=== PATIENT | female | born 2000 | race Caucasian/White ===

== ENCOUNTER 2022-11-27 07:50 | Outpatient (RCR) | payer OTHER, SELFPAY | END 2022-12-15 13:26 | disposition home or self-care (01) | LOC: PT 07:50 | PROVIDERS: PCP Obstetrics & Gynecology | DX: M54.89 Other dorsalgia (principal); G89.29 Other chronic pain | CPT/HCPCS: 97010; 97014; 97035; 97110; 97140; 97161 ==

== ENCOUNTER 2023-08-12 22:11 | Outpatient (REF) | payer OTHER, SELFPAY ==
[2023-08-15 22:07] LABS: Age Gdln ACOG Testing Note (.); IGP, rfx Aptima HPV ASCU Note (.)
== END 2023-08-12 22:12 | disposition home or self-care (01) ==
LOC: LAB 22:11
PROVIDERS: PCP Obstetrics & Gynecology; Visit Provider Obstetrics & Gynecology
DX: Z01.419 Encounter for gynecological examination (general) (routine) without abnormal findings (principal)
CPT/HCPCS: G0145

== ENCOUNTER 2023-09-30 16:00 | Outpatient (RCR) | payer OTHER, SELFPAY ==
[2023-09-30 16:35] LABS: HCG Quantitative 21024 mIU/mL
[2023-10-02 16:02] LABS: HCG Quantitative 20204 mIU/mL
== END 2023-10-18 08:45 | disposition home or self-care (01) ==
LOC: LAB 16:00
PROVIDERS: PCP Obstetrics & Gynecology; Visit Provider Obstetrics & Gynecology
DX: N92.6 Irregular menstruation, unspecified (principal)
CPT/HCPCS: 36415; 84702

== ENCOUNTER 2023-10-04 15:47 | Outpatient (OUT) | payer OTHER, SELFPAY ==
--- NOTE | 2023-10-04 | US_ITS ---
The [address] [address] Patient Name: SHAQUILLE VIEYRA MRN: [id number] date: 2000 Sex: F Assigned Patient Location: Current Patient Location: Accession/Order Number: [id number] Exam Date: 10/04/2023 16:30 Report Date: 10/07/2023 11:12 At the request of: YASMINE VERGARA Procedure: US OB >= 14 weeks Fetus EXAMINATION: US OB growth HISTORY: Missed Menses N92.6 COMPARISON: No relevant comparison available. FINDINGS: Heart Rate: 141.4 bpm Number: 1.0 Position: BREECH Amniotic Fluid Volume: Subjectively normal BIOMETRY: BPD: 3.9 cm cm; 17 weeks 5 days; 52% HC: 15.1 cmcm; 18 weeks 1 days ; 64% AC: 12.5 cm cm; 18 weeks 1 days; 62% FL: 2.7 cm cm; 18 weeks 1 days; 59% EFW: 223.5 grams; 69% FL/AC: 21.3 FL/BPD: 68.8 HC/AC: 1.2 GESTATIONAL AGE: Age by EDC: 17 weeks 5 days KEEGAN by EDC: 03/08/2024 Age by US: 18 weeks 0 days KEEGAN by US: 03/06/2024 US/US OB >= 14 weeks Fetus IMPRESSION: 1. Single live intrauterine with growth detailed above. Electronically authenticated by: KEEGAN HUMPHREY Date: 10/07/2023 11:12
--- NOTE | 2023-10-04 | US_ITS ---
[address] [address] Patient Name: SHAQUILLE VIEYRA MRN: [id number] date: 2000 Sex: F Assigned Patient Location: Current Patient Location: LAB Accession/Order Number: [id number] Exam Date: 10/04/2023 16:30 Report Date: 10/07/2023 11:12 At the request of: YASMINE VERGARA Procedure: US OB growth EXAMINATION: US OB growth HISTORY: Missed Menses N92.6 COMPARISON: No relevant comparison available. FINDINGS: Heart Rate: 141.4 bpm Number: 1.0 Position: BREECH Amniotic Fluid Volume: Subjectively normal BIOMETRY: BPD: 3.9 cm cm; 17 weeks 5 days; 52% HC: 15.1 cmcm; 18 weeks 1 days ; 64% AC: 12.5 cm cm; 18 weeks 1 days; 62% FL: 2.7 cm cm; 18 weeks 1 days; 59% EFW: 223.5 grams; 69% FL/AC: 21.3 FL/BPD: 68.8 HC/AC: 1.2 GESTATIONAL AGE: Age by EDC: 17 weeks 5 days KEEGAN by EDC: 03/08/2024 Age by US: 18 weeks 0 days KEEGAN by US: 03/06/2024 US/US OB growth IMPRESSION: 1. Single live intrauterine with growth detailed above. Electronically authenticated by: KEEGAN HUMPHREY Date: 10/07/2023 11:12
--- OUTSIDE RECORDS SUMMARY | 2023-10-04 16:10 | XMS_ITS | CCD ---
Author Organization [facility] Care Team Providers Care Management Supervisor Name Role Phone LorieEzequiel Unavailable [facility] [place] MIRANDA Primary Care Unavailable JAI ., DR UNDERWOOD Admitting Unavailable JAI ., DR UNDERWOOD Consulting Unavailable JAI ., DR UNDERWOOD Attending Unavailable [facility] DR MIRANDA Primary Care Unavailable JAI ., DR UNDERWOOD Admitting Unavailable JAI ., DR UNDERWOOD Consulting Unavailable JAI ., DR UNDERWOOD Attending Unavailable YASMINE VERGARA Attending Unavailable Allergies Allergy Classification Reported Allergen(s) Allergy Type Date of Onset Reaction(s) Facility (2 sources) Sulfacetamide Drug Allergy [facility] Other (1 source) Sulfonamides (Antibiotic) Drug allergy (disorder) [facility] Repository Medications Current Medications Medication Drug Class(es) Dates Sig (Normalized) Sig (Original) {21 (ethinyl estradiol 0.03 MG / levonorgestrel 0.15 MG Oral Tablet) / 7 (inert ingredients 1 MG Oral Tablet) } Pack [Levora 0.15/30 28 Day] (1 source) Progestin, Estrogen, Progestin-containin g Intrauterine Device take 1 tablet by mouth every twenty-four hours Levora 0.15/30 (28) 0.15-30 MG-MCG 1 tablet Orally Once a day Active hydrOXYzine (1 source) Antihistamine hydrOXYzine HCl Active hyoscyamine sulfate 0.125 mg oral tablet (1 source) Start: 12-06-2021 take 1 tablet by mouth every eight hours Hyoscyamine Sulfate 0.125 MG 1 tablet as needed Orally Three times a day for 90 day(s) Nov, Active Completed/Discontinued Medications Medication Drug Class(es) Dates Sig (Normalized) Sig (Original) metFORMIN (1 source) Biguanide metFORMIN HCl No t-Taking [place]-28 (2 sources) [place]-28 Not-Ta yadira Adrienne-28 Active Problems Active Problems Problem Classification Problem Date Documented Da te Episodic/Chronic Abdominal pain (3 sources) Abdominal pain; Translations: [Unspecified abdominal pain] Onset: 10-11-2021 Resolved: 10-11-2021 Episodic Immunizations and screening for infectious disease (1 source) Encounter for screening for human papillomavirus (HPV); Translations: [ENC SCREENING HUMAN PAPILLOMAVIRUS] Onset: 09-03-2022 Episodic Other disorders of stomach and duodenum (2 sources) Indigestion; Translations: [Functional dyspepsia] Episodic Other endocrine disorders (1 source) Polycystic ovarian syndrome; Translations: [POLYCYSTIC OVARIAN SYNDROME] Onset: 01-25-2022 Chronic Other gastrointestinal disorders (2 sources) Swollen abdomen; Translations: [Abdominal distension (gaseous)] Episodic Other screening for suspected conditions (not mental disorders or infectious disease) (4 sources) Encounter for screening for malignant neoplasm of cervix; Translations: [ENC SCREENING MALIG NEOPLASM CERV] Onset: 08-29-2022 Episodic Past or Other Problems Problem Classification Problem Date Documented Da te Episodic/Chronic Other disorders of stomach and duodenum (2 sources) Functional dyspepsia Onset: 10-11-2021 Resolved: 12-06-2021 Episodic Other gastrointestinal disorders (1 source) Abdominal distension (gaseous) Onset: 10-11-2021 Resolved: 10-11-2021 Episodic Other nutritional; endocrine; and metabolic disorders (4 sources) Abnormal weight gain; Translations: [ABNORMAL WEIGHT GAIN] Onset: 01-12-2022 Episodic Results Test Name Value Interpretation Reference Range Facility PAP ACOG PANEL 2: 21 to 29on 09-06-2022 . . Normal [facility] Comment on above: Performed By: #### 4 [id number] #### [facility] [address] [address] [address] Dat Wesley Age Gdln ACOG Testing - Normal [facility] Comment on above: Performed By: #### 4 [id number] #### [facility] [address] [address] [address] Dat Wesley DIAGNOSIS: Comment [facility] Comment on above: Result Comment: NEGA TIVE FOR INTRAEPITHELIAL LESION OR MALIGNANCY. Performed By: #### 4 [id number] #### [facility] [address] [place] [address] Dr. Dat Wesley Methodology: Comment Normal [facility] Comment on above: Result Comment: This liquid based ThinPrep(R) pap test was screened with the use of an image guided system. Performed By: #### 4 [id number] #### [facility] [address] [place] [address] Dr. Dat Wesley Note: Comment Normal [facility] Comment on above: Result Comment: The Pap smear is a screening test designed to aid in the detection of premalignant and malignant conditions of the uterine cervix. It is not a diagnostic procedure and should not be used as the sole means of detecting cervical cancer. Both false-positive and false-negative reports do occur. . Performed By: #### 4 [id number] #### [facility] [address] [place] [address] Dr. Dat Wesley Performed by: Comment Normal [facility] Comment on above: Result Comment: Singh Sanders Arch Cushion Press Operator (ASCP) Performed By: #### 4 [id number] #### [facility] [address] [place] [address] Dr. Dat Wesley Reflex Criteria: Comment Normal [facility] Comment on above: Result Comment: The HPV DNA reflex criteria were not met with this specimen result therefore, no HPV testing was performed. . Performed By: #### 4 [id number] #### [facility] [address] [place] [address] Dr. Dat Wesley Specimen adequacy: Comment Normal [facility] Comment on above: Result Comment: Sati sfactory for evaluation. Endocervical and/or squamous metaplastic cells (endocervical component) are present. Performed By: #### 4 [id number] #### [facility] [address] [place] [address] Dr. Dat Wesley HCG,Urineon 11-03-2021 Beta HCG ( test) Ql (U) Negative Normal [facility] Comment on above: Result Comment: PERF ORMED BY: [address] [place] [place] [id number] PATHOLOGIST BALANCE STAFF STAKER SULTANA PETE M.D. Performed By: #### U [facility] #### [address] 11-03-2021 L - -------- Specimen: [id number] Received: 11/03/21 Status: AYDIN Johnson Num: [id number] Spec Type: Surgical Subm Dr: Ezequiel Melo MD Tissues: A Small Intestine - Biopsy/Polyp (SMALL BOWEL) Procedures: HE Stain/2, Gross/Micro L4 -------- Patient Age/Sex Location Account Attending Physician -------- Leigh Singh / [id number] Ezequiel Melo MD -------- SPEC NUM: [id number] RECD: 11/03/21 STATUS: AYDIN JOHNSON NUM: [id number] PAPI: 11/03/[address] [facility] [address]: Ezequiel Melo MD ENTERED: 11/03/[address] [facility] [address]: SPEC TYPE: Surgical DEPT: S ORDERED: HE Stain/2, Gross/Micro L4 ORDERED: HE Stain/2, Gross/Micro L4 Pathological Diagnosis Small bowel, biopsy: - Small bowel mucosa with no significant histopathology. - No evidence of celiac disease identified. Clinical Information Dyspepsia Gross Description Received in formalin labeled with the patient's name, number and small bowel rule out celiac are two simmons tissue fragments, 0.3 cm each. Entire specimen is submitted in one cassette labeled A1. Type of Fixative: 10% Neutral Buffered Formalin (MICK/YJ) Microscopic Description Two H E stained slides are reviewed. Microscopic examination is performed. This case is interpreted at [facility], [place], [place] -------- Specimen: [id number] Received: 11/03/21 Status: RAFAELChino Johnson Num: [id number] Spec Type: Surgical Subm Dr: Ezequiel Melo MD Tissues: A Small Intestine - Biopsy/Polyp (SMALL BOWEL) Procedures: HE Stain/2, Gross/Micro L4 -------- Patient: Leigh Singh [id number] (Continued) -------- Specimen: [id number] Received: 11/03/21 (Continued) Signed (signature on file) Gabe Ellis MD 11/06/21 1703 -------- Specimen: Received: 11/03/21 Status: AYDIN Alex Num: [id number] Spec Type: Surgical Subm Dr: Ezequiel Melo MD Tissues: A Small Intestine - Biopsy/Polyp (SMALL BOWEL) Procedures: HE Stain/2, Gross/Micro L4 -------- Patient: JuanshaunaLeigh [id number] (Continued) -------- Specimen: [id number] Received: 11/03/21 (Continued) CPT Codes 68995 -------- -------- Specimen: [id number] Received: 11/03/21 Status: AYDIN Johnson Num: [id number] Spec Type: Surgical Subm Dr: Ezequiel Melo MD Tissues: A Small Intestine - Biopsy/Polyp (SMALL BOWEL) Procedures: HE Stain/2, Gross/Micro L4 -------- Patient: JuanshaunaLeigh [id number] (Continued) -------- Signed (signature on file) Gabe Ellis MD 11/06/21 1703 Normal [facility] COVID[facility] [place] SARS-CoV-2 (COVID-19) RNA OZZIE+probe Ql (Unsp spec) Negative Normal Negative [facility] Comment on above: Order Comment: Healt hcare Worker?: N Result Comment: Testing for SARS-CoV-2 by RT-PCR This test was developed and its performance characteristics determined by [employer] and validated at the [facility]. This test has not been FDA cleared or approved. This test has been authorized by FDA under an Emergency Use Authorization (EUA). This test has been validated in accordance with the FDA's Guidance Document (Policy for Diagnostics Testing in Laboratories Certified to Perform High Complexity Testing under CLIA prior to Emergency Use Authorization for Coronavirus Disease-2019 during the Public Health Emergency) issued on August 20, 2019. This test is only authorized for the duration of time the declaration that circumstances exist justifying the authorization of the emergency use of in vitro diagnostic tests for detection of SARS-CoV-2 virus and/or diagnosis of COVID-19 infection under section 564(b)(1) of the Act, 21 U.S.C. 360bbb-3(b)(1), unless the authorization is terminated or revoked sooner. PERFORMED BY: [place] [address] PATHOLOGIST BALANCE STAFF STAKER SULTANA PETE M.D. Performed By: #### C OVID 19 [facility] #### [address] Coding Summaryon 04-19-2021 Coding Summary HTMLBase 64 XyczxzdfCZr0vJp+PGhlY WQ+TQ8CMDGoK51irPWdzN 6DN5uPSZ5VRHJCPNJTII4 JIF4hhPC4YVvqK6OyjhHs ToxnjUOxHM07TKy4CQE9t NooPHtwjH7huHUfI0t1Ol WdXU39dA14ZEgoHYVrIsA 3LjZpbjsgbWFy F5rjRqYurXFdBiy+PHRhY mxlIHdpZHRoPScxMDAlJy HmpUmfHU3pVu9pYVLfPZB vbGxhcHNlOiBj b3yrJYLlSJpvFG1xnWfoJ 8XcnHW7PVLlm7q7Ht96fM I+ZKKyJFP1iUsqPUbwg15 4PdLfl8dkMPR3 bUIpPBqhNMV5V39qi2C3I WEsIDMzQDU2wNG1rG0qzI tljrmbH5NwvOFgZsV3LYQ 4rCLptM2ciTps ygcdvB8wVne+P47OKH7FO QISTN5IUhx6C1HaQlpfuU I+MT87NWXdZN99cRTqjSS nm7bgsXg0HpNw RFFbWED2kIztAZlst7GmU VFoZ81vkMXtf5B9WPXtfI pehCRgWhAzxWJ9rJ4eXDj ebttbr3ccnfwd Ryffa2rmwk04vE30F28fU GsbARLhGPJ2HYTrHRIcyN hdaj9itN2eIb0+VKsda9t vd9oqyBd5DzIt CVPgumVakPviKID9a0GcJ y18L1CsoOtvq0PtOio4ag 47wLPsz0G5lPG6YMlfLEL keM9nMRdmVtU5 MUIqSnInlC29aDIbOPzhI f8qnYmnqYupFQ0xOBWnoj jsSWWchZ0bKUUcyHWexXr jYH4kDUQzcmjw v400LwGrQLI8OWYxiQTkX 1LygF7zBtXfMBJhCHLtK3 RccNMzFWooU095LFiuIbB 2ETHngrTiA5Qj RNNnhYxbVuZ4d0R6Rf3Ht 9WbvukiLZT4WKmgGZMeYb AoFaIsSxV9G9YiXyn7KTZ cvPmaFU9jL1Lt EHAwpoercwzrcBB7LVEaX GEscW61qJSiCBqhGp1yg9 R1v353VTTkQEKvtG48Hv3 udDogMTBwdCBU vB1stfkdq5qixchwCbMzT KOcAYq5ZPu4MXWxxZweLb KuRWC8RjR1OMQ4yFDswW9 jhBmtbdrrkU6n Oyc+G60rcA3iRCR5KQA0p qtwEIRlwxPbLM78MN42L2 RyPjwvdGFibGU+PGRpdiB pfTgcNP1pYrGp p8epm2DsMGwhE1KqMIUjD XmbAkb6CXUsLMR3qET6kR 5gIYQyTAbsu9O0yXX3U7N tcuJlvd9vu7on HJMhNDlmA28oeYGmj6N9H HGnkYG3BIZqzYzwAhFawH 93Oyc+XEIsqZoay1QxOvk tr9gus6hfnHj6 KjIwHVFzecHooJckWGE6w 4FlHe31Q03xPOcvUMKkLD OjLROiEXAnfLmwwz9myR7 wIi8+PGNvbCB3 uXM9sO1vIDQoPuJ3UQfuS 718PfOnlYOhUbynt2ere4 pwzXq4GdJhZETlatWcrPs hNPS7p8VxRs94 O62gEIauWEWlJTUvDDBdN NYpwKhsqk1voF0jUd4+PC 9rb6qbnn85wC62kLQ+PHR uOVM7dBozEXvl MZNknP4xPFznKqB9TKWjY fXehI24pKPfJZqsGi3okU mmlVofJT6gCVIinetxv93 2HcSxr3mmUBCu rORnQLtuWTT6L49ku5K0W AEvGMYfKRJ8zPT2sE4kdY lnbjogbGVmdDsgdmVydGl sGHaiESamF720 IHRvcDsnPlBhdGllbnQgT zScMSt6B1WtGat7VTMkzU pyKX2pvQZwKKtgAg7bfLm ysXjlYM9kVJFd bttsq299FfBkm7abZVMcw OHnZTliGYG9G27wa9N9DC QsUHMuUZR4qBS5nH5nbCi nbjogbGVmdDsg ovKgnBiyDTecOTyvN624Y HRvcDsnPkJpcnRoIERhdG F8RN23NY63xZYoe9W3wUZ 0C5OqARBeihdl xtmlmMC5HCPoPFLknZ42F i7inGewJk4hHDPuIMH8QL OexGQoC9JccA6xDfSdVGJ tKEFgX3IifLTv OVpfX744IXbtYpM2IDXuj eVaQ7VoKKUaoJknFyW1n9 B8Rj7QD6Y8PP06DV61fVQ yo5M8cSB2H1Br QWInypecdcxtqJE5VBFzP BCgjJ68Iy7srGocTa4mRG ShKNX1DUXfdKBpU2TzkH1 yOiAjMDAwMDAw E2EvsQBhIWowL122GNffZ vU3QSHuqfSgT4KmQKVdvT exQyO3o0U2Pz6KCUs2UC0 0AF57oXSng5I2 oTQ6G1CdNUHmjeictkllu RE4OPAeODHrxD38Sz6lnA tkNg6iFQHvUXL7WRGmcSX qT3JcsR4dWsLf ORQbNYXqI3UuhZLmOHozM 645SOsuAkD9HGRvlrZnI6 IfIDZgwUpeQnA7v2J5Xz6 IIZZwEV54XWU1 yTV7YO46HW81V9JaRezeq GFibGU+PHRhYmxlIHdpZH RoPScxMDAlJyBzdHlsZT0 iKg9qRSIsMXAn jCinmJJuRlMpg3lhABWoQ UbzXN8xoFdfH1WazUF4IE Ltn2s4Ov68E40sF9GbkWI +UCObmQE9kIA4 sJ1cGaGyAnN9AKqlX479T iTbpHKnGioet9aqr8ielF q1FfU0CBHzbfBvuTybDXK 2a8EgSc22J31w IHdpZHRoPSIxNSUiIHZhb Bjvjq2vfG2hMz1+PGNvbC J5pIO0wT9xVqDcKxT3CYh mF721UoNckDEj Cwkdm9lep6xjsNq8OnGzY SFwxjTszHeqDRY3z1XvFc 40K1ZhgAzqi5RiRic1cp5 1fNFlr7X1zRF1 S2MbMGOnsbehuBVjdZqpV Z2pCGRctgknLPZucA6xEB NuI2h2JiFjYbG2DKbhQ1X vsrZ8KNMalUNc XAfzSIP2B35wa5O3GNJtA AYbAXA8tTM0zV4bxIgwjw ogbGVmdDsgdmVydGljYWw fLAqcM795UKLg sNspRBBayK9lMURyyLTja VvtPL0sPLPntdmkWwVWTI REWSwgSEFOTkFIIEdSQUN REO29YG23fONy v2J5kKD7X8GqXASvstcdc wpblKT1QXDwEPVeqK86sD TpCLfeKp0hi9Q5a386XDR oFYBleM89Fj0u iTvtSSJlbEGUtN1doobfy 2cizqrsVmPyWEZgXNr3IS i7VTLsqQfwEuRbIDV6SbM 6QFN8sAUjwG3i yNufylklmT8oKhv+MDMvM DkvMjAwMTwvdGQ+PHRkIH H5lKfhSGlsAKFzkE1zHWK oM1b5NjIlTtP6 WQujR1PnGTBrhhilLu33o Q2kNiAzXuA2RXysG7Jesb C4DTGxmTXnTGqxSPT6D51 pk9Y2OIBbTGXq YSP2mQV9cB5ewGlmugffq GVmdDsgdmVydGljYWwtYW lkF165UGWyyOhrDpSqLSl oPXNiSG27QE68 dIGef9A3eLD7H7UaBYVck peiebzrtJL5PUNoDGQgrS 89dLNqYLpdVt2aw9X3m99 0HTPfPJUnxC19 Gm3mpSpkPBDguXNAtM1vy hdwe2giitmoJzUjUGIzIQ t7FOn6AHCugXdiLkEfCXY 0GfP7TZF5zBIa jY4keIynupzvzI5qNsi+R fJYVZlERI36DB47yRUlz0 V1eON4Z9EpPUFqgpypvac hvVK8QSQnZUTl wA74cJKsHKkwZk9nb4W7b 432EMSaXDZinV72Le5ydS zxTXFtoRDFbD7dzosno1g vcjogIzAwMDAw RVn7DUb2XAQxpHbpKaMsW CS4RqL1RBA9eKViiP2mqI glgucnoZ6rOzm+W6X0S1S kPjwvdHI+PC90 MZVoPS66zHEvoIIws1rpe Qp8ArEiFOXlJXR2lFohCP lsv4YuTWOpC14rtNVji8G 6IGNvbGxhcHNl HfWowNS8wM5nGYtlamnpf 8pvlrkoUmvei5ifsh93vP 94W95mGLsxVZQiHOOaCUX aEDLowMfide8k hC9gRz9+XKOzkHG5wOU3x H7jOvLgEwC6TSmhX319Qk TewEVySjluf5wpn4ujuHx 9IjIwJSIgdmFs sKqhSJK2f4KrZt99S18uU HdpZHRoPSIyMCUiIHZhbG uvvu7oaC9mYv7+BY4yf7a eqb17wV26oLT+ PFYgMXZ3zRqkGUwdZJHfu X5zIEmmWoJ8QFIaAoQdzJ 01tJBmCJzoSu0oqBlhvNo lFQ6hVSKtctfv j440AxAvf3ynYZYbrMRiO TorSZJ5T92qi4C5CQQoAO ZaNHJ7tWR7qF9fwOipbza gbGVmdDsgdmVy iDqvRIhmALdyA318LKBpf LzxFzXevJEoX8mmafKEOM 1lOjwvdGQ+HSKrKXY8oHg cOTiySLXhgY5k EUJeV3i7QdVvOtB7RDttM 4QrpcK4LHEnkEXoFXNtaD NSzJ3keunxp2xczwkzRxS gYJQrHAf3GLa9 HPCoyCnzHbWzWSR2JdV8A FT5bGAvkX5jvRsezbczxX 9wOyc+RklOOjwvdGQ+PHR sMDK8dYmyDFsa TEQxqP1iGGJyS6u4NcAzG pP6REihR5OsclH3HLAvzE AhKDNjkXTMyF2avifip8w vcjogIzAwMDAw WPq4FVb4HRNofIfqDsRjU HG0LbF0QNA7cMRjrY6luW dbmkjjfR3tFkq+TVJOOjw vdGQ+PHRkIHN0 bWkvSQsjXBVhtQ2iFUAmS 4c7ShEbHyO7USngH3Opvy P3UYJeeKHlGBAecVEWmL2 ebcyoh1vrkhah NoWcYUFkDEm9OEt5NGHlb OdfVgMyOJG5UnX8NXA3uU XsmV4hvXejtjvcsY3nHco +GTB0LXE4OX15 XJ80A9MwRchlmWHuxYP+P HRhYmxlIHdpZHRoPScxMD VdNhDbwIzgSW7bIf9pFOX yLWNvbGxhcHNl OiB (more content not included)... [facility] Urgent Care Note- Provideron 04-06-2021 Urgent Care Note- Provider Patient: LEIGH MONTOYA Age: 20 years Sex: FEMALE : 2000 Associated Diagnoses: Sprain of left foot Author: Paul Atkins PA-C History of Present Illness This is a 20 year old with left foot pain since yesterday when she stubbed it on a door jam at her house. It hurts now to walk and flex her foot. The tips of her left third and fourth toes are tingly. No fevers, chills or malaise. No other joint pains or myalgias. No numbness, tingling or weakness. No skin rashes or lesions. There are no other associated symptoms. Walking makes it worse. Nothing else makes the symptoms better or worse. Symptoms are described as sudden onset, moderate in nature and persisting. Health Status Allergies: Allergic Reactions (Selected) Mild Ibuprofen- No reactions were documented. Sulfamethoxazole- No reactions were documented.. Medications: (Selected) Documented Medications Documented Iron 100 Plus oral tablet: 1 tab(s), PO, Daily, 0 Refill(s) Jolessa 0.15 mg-30 mcg oral tablet: TAKE 1 TABLET BY MOUTH ONCE DAILY metFORMIN 500 mg oral tablet: 500 mg = 1 tab(s), PO, BID, 0 Refill(s). Past Medical/ Family/ Social History Medical history: No active or resolved past medical history items have been selected or recorded.. Surgical history: No active procedure history items have been selected or recorded.. Family history: No family history items have been selected or recorded.. Social history: Social & Psychosocial Habits Alcohol 06/18/2020 Alcohol Use: Never Substance Abuse 06/18/2020 Substance use: Never Tobacco 06/18/2020 Smoking tobacco use: Never (less than 100 in l Electronic Cigarette/Vaping 06/18/2020 Electronic Cigarette Use: Never . Problem list: Active Problems (2) History of ovarian cyst Polycystic ovarian syndrome . Physical Examination GENERAL: Awake, alert and oriented to person, place and situation. Well nourished, well developed, non toxic, NAD. EXTREMITIES: TTP distal third and fourth metatarsals with TTP of the base of the left fourth toe, no cyanosis, clubbing or obvious edema. Good muscle tone, fair ROM. Brisk cap refill distally, pedal pulses 2+ bilaterally. SKIN: Normal inspection, no visualized ecchymosis, abrasion or rash. NEUROLOGIC: Light touch sensation in tact, strength 5/5 in bilateral lower extremities. Normal mentation. No focal neurological deficits appreciated. Medical Decision Making Orders Launch Orders Radiology: XR Foot Complete Left (Order): 04/05/2021 16:18 EST Stat, pain, Allow Modification Per Radiologist, Transport Mode: Cart, Launch Orders Patient Care: Brace/Splint ED (Order): 04/05/2021 17:41 EST, Cast Shoe Brace/Splint ED (Order): 04/05/2021 17:41 EST, Khoa wrap . X-ray interpreted by myself shows no acute bony abnormality, or soft tissue swelling. Rest, ice, compress, and elevate. Khoa and cast shoe is applied by the nurse and checked by myself, and extremity is neurovascularly in tact at the time of discharge. Tylenol/Motrin for pain. Return with new, or worsening symptoms, or symptoms failing to improve as expected and the patient voiced their understanding. Questions answered. Follow-up with their family doctor as directed, return here sooner as needed. Impression and Plan Diagnosis Sprain of left foot ([id number] S93.602A, Discharge, Medical) Plan Condition: Stable. Disposition: Discharged: Time 04/05/2021 17:42:00, to home. Patient was given the following educational materials: Foot Sprain, Foot Sprain, Foot Sprain. Follow up with: Flex Wang Within 3 to 5 days, Flex Wang Within 3 to 5 days; JEFF JESUS , only if needed. Counseled: Patient, Regarding diagnosis, Regarding diagnostic results, Regarding treatment plan, Patient indicated understanding of instructions. Addendum Pt called and notified of questionable toe fracture on final x-ray read. She is in a post op shoe, she can arrange follow-up as needed. Normal [facility] ED Clinical Summaryon 2020 ED Clinical Summary [facility] ? Urgent Care [address] [place], [place] [id number] Clinical Summary PERSON INFORMATION Name: LEIGH MONTOYA Age: 20 Years Sex: FEMALE : 2000 MRN: Acct#: Visit Reason: UC - Ankle/Foot/Toe Pain or Swelling; LEFT FOOT PAIN Arrival: 04/05/2021 16:12:07 Discharge: 04/05/2021 17:50:00 LOS: 000 01:38 Check In: 04/05/2021 16:12:07 Checkout: 04/05/2021 17:50:00 Address: [facility] [facility] [id number] PCP: Flex Wang DO PROVIDER INFORMATION Provider Role Assigned Unassigned Monica Dunn SPECIAL NEEDS CHILD CAREGIVER Nurse 04/05/2021 16:14:32 Paul Atkins PA-C ED PA 04/05/2021 16:15:50 VITALS INFORMATION Vital Sign Triage Latest Temperature Tympanic Temperature Temporal Artery Pulse Rate O2 Sat 99 % 99 % Respiratory Rate Blood Pressure /68 mmHg /68 mmHg MEDICAL INFORMATION Medications Given: Allergy Information: sulfamethoxazole PHYSICIAN DOCUMENTATION DISCHARGE INFORMATION: Discharge Disposition: Home Discharge Location: Home PATIENT EDUCATION INFORMATION Instructions: Foot Sprain Follow-Up: With: Address: When: JEFF [employer] [address] [place] [address] Business (1) , only if needed With: Address: When: Flex Wang [address] [place] [address], [facility] [place] [address] Business (1) Within 3 to 5 days DIAGNOSIS: Sprain of left foot Patient Understands: Yes - Patient/family/caregi nela verbalizes understanding of instructions given Comment: [facility] ED Patient Summaryon 021 ED Patient Summary [facility] ? Urgent Care [address] [place] [id number] PATIENT DISCHARGE INSTRUCTIONS Patient Information Name: LEIGH MONTOYA Age: 20 Years Date of : 2000 Reason For Visit: UC - Ankle/Foot/Toe Pain or Swelling; LEFT FOOT PAIN Arrival Time: 04/05/2021 16:12:07 Primary Care Physician: Flex Wang DO Attending Physician: Nirav Nunez Comment: Patient Education With: Address: When: JEFF [email or web address] [address] [place] [address] Business (1) , only if needed With: Address: When: Flex Wang [address] [facility], [place] [address] Business (1) Within 3 to 5 days Foot Sprain A foot sprain is an injury to one of the strong bands of tissue (ligaments) that connect and support the bones in your feet. The ligament can be stretched too much and tear. A tear can be either partial or complete. The severity of the sprain depends on how much of the ligament was damaged or torn. What are the causes? This condition is usually caused by suddenly twisting or pivoting your foot. What increases the risk? This injury is more likely to occur in people who: ? Play a sport, such as basketball or football. ? Exercise or play a sport without warming up. ? Start a new workout or sport. ? Suddenly increase how long or hard they exercise or play a sport. ? Have previously injured their foot or ankle. What are the signs or symptoms? Symptoms of this condition start soon after an injury and include: ? Pain, especially in the arch of the foot. ? Bruising. ? Swelling. ? Inability to walk or use the foot to support body weight. How is this diagnosed? This condition is diagnosed with a medical history and physical exam. You may also have imaging tests, such as: ? X-rays to make sure there are no broken bones (fractures). ? An MRI to see if the ligament is torn. How is this treated? Treatment for this condition depends on the severity of the sprain. ? Mild sprains can be treated with: ? Rest, ice, compression, and elevation (RICE). ? Keeping your foot in a fixed position (immobilization) for a period of time. This is done if your ligament is overstretched or partially torn. Your health care provider will apply a bandage, splint, or walking boot to keep your foot from moving until it heals. ? Using crutches or a scooter for a few weeks to avoid putting weight on your foot while it is healing. ? Major sprains can be treated with: ? Surgery. This is done if your ligament is fully torn and a procedure is needed to reconnect it to the bone. ? A cast or splint. This will be needed after surgery. A cast or splint will need to stay on your foot while it heals. ? In both types of sprains, you may need to exercise or have physical therapy to strengthen your foot. Follow these instructions at home: If you have a bandage, splint, or boot: ? Wear the bandage, splint, or boot as told by your health care provider. Remove only as told by your health care provider. ? Loosen the bandage, splint, or boot if your toes tingle, become numb, or turn cold and blue. ? Keep the bandage, splint, or boot clean and dry. If you have a cast: ? Do not stick anything inside the cast to scratch your skin. Doing that increases your risk for infection. ? Check the skin around the cast every day. Tell your health care provider about any concerns. ? You may put lotion on dry skin around the edges of the cast. Do not put lotion on the skin underneath the cast. ? Keep the cast clean and dry. Bathing ? Do not take baths, swim, or use a hot tub until your health care provider approves. Ask your health care provider if you may take showers. You may only be allowed to take sponge baths. ? If the bandage, splint, boot, or cast is not waterproof: ? Do not let it get wet. ? Cover it with a watertight covering when you take a shower. Managing pain, stiffness, and swelling ? If directed, put ice on the injured area: ? If you have a removable splint, boot, or immobilizer, remove it as told by your health care provider. ? Put ice in a plastic bag. ? Place a towel between your skin and the bag. ? Leave the ice on for 20 minutes, 2?3 times per day. ? Move your toes often to avoid stiffness and to lessen swelling. ? Raise (elevate) the injured area above the level of your heart while you are sitting or lying down. Driving ? Do not drive or operate heavy machinery while taking pain medicine. ? Ask your health care provider when it is safe to drive if you have a bandage, splint, or walking boot on your foot. Activity ? Do not use the injured foot to support your body weight until your health care provider says that you can. Use crutches or other supportive devices as directed by your health care provider. ? As (more content not included)... Normal [facility] Care [place] 021 Urgent Care Record [facility] ? Urgent Care [address], [place] [id number] PATIENT DISCHARGE INSTRUCTIONS Patient Information Name: LEIGH MONTOYA Age: 20 Years Date of : 2000 Reason For Visit: UC - Ankle/Foot/Toe Pain or Swelling; LEFT FOOT PAIN Arrival Time: 04/05/2021 16:12:07 Primary Care Physician: Flex Wang DO Attending Physician: Nirav Nunez Comment: Visit Diagnosis: Diagnoses This Visit Sprain of left foot (S93.602A) UC - Ankle/Foot/Toe Pain or Swelling ([id number]) If you received any narcotics, sedation, or any other medication that causes drowsiness for the next 24 hours, unless otherwise directed: ? Do not drive a car. ? Do not operate machinery such as power tools, lawn mowers, drills, sewing machines, or stoves ? Avoid alcoholic beverages and drugs for allergies, nerves, or sleep ? Do not make important personal or business decisions or sign any legal documents With: Address: When: JEFF JESUS [address] [address] Business (1) , only if needed With: Address: When: Flex Wang [address] [facility], [place] [address] Business (1) Within 3 to 5 days Medication Information: The exam and treatment you received today in the [facility] were for an urgent problem and are not intended as complete care. It is important for you to follow up with a doctor, nurse practitioner, or physician?s habilitation assistant for ongoing care. If your symptoms become worse or you do not improve as expected and you are unable to reach your usual health care provider, you should return to the Emergency Department, we are available 24 hours a day. For those patients who have received Radiology results, the interpretation of your X-ray as given to you by our Urgent Care physician is only a preliminary report. The Radiologist will review your films and if there is a change in the diagnosis you will be notified by phone. Please make sure you have provided a working phone number so we can reach you if necessary. In the event that you had a lab culture while you were a patient in the Urgent Care, you will be notified by phone if there is a need to change your antibiotic. Please make sure you have provided a working phone number so we can reach you if necessary. [facility] has provided you with a complete list of medications post discharge. Please inform your general operations manager/provider of your visit and for further instruction on these medications. Any specific questions regarding your chronic medications and dosages should be discussed with your primary care physician(s) and/or pharmacist. Medications to Continue That Have Not Changed Other Medications Durable Medical Equipment (DME) (EQ NASAL ALLERGY SPRAY AER) ethinyl estradiol-levonorgest rel (Jolessa 0.15 mg-30 mcg oral tablet) TAKE 1 TABLET BY MOUTH ONCE DAILY. metFORMIN (metFORMIN 500 mg oral tablet) 1 tab(s) Oral 2 times a day. multivitamin with iron (Iron 100 Plus oral tablet) 1 tab(s) Oral every day. Visit Information Allergies: Substance Reaction Symptoms Type Comments sulfamethoxazole Drug hives Vital Signs: Vitals and Measurements this Visit (last charted value for your 04/05/2021 visit) Vital Signs This Visit Temperature Temporal: 36.5 DegC Peripheral Pulse Rate: 96 bpm Respiratory Rate: 16 br/min Systolic Blood Pressure: 118 mmHg Diastolic Blood Pressure: 68 mmHg SpO2: 99 % Oxygen Therapy: Room air Measurements This Visit Height: 160.02 cm Weight: 102.06 kg Body Mass Index: 39.86 kg/m2 Problems List: Problem Onset Comments Polycystic ovarian syndrome Patient Education Foot Sprain A foot sprain is an injury to one of the strong bands of tissue (ligaments) that connect and support the bones in your feet. The ligament can be stretched too much and tear. A tear can be either partial or complete. The severity of the sprain depends on how much of the ligament was damaged or torn. What are the causes? This condition is usually caused by suddenly twisting or pivoting your foot. What increases the risk? This injury is more likely to occur in people who: ? Play a sport, such as basketball or football. ? Exercise or play a sport without warming up. ? Start a new workout or sport. ? Suddenly increase how long or hard they exercise or play a sport. ? Have previously injured their foot or ankle. What are the signs or symptoms? Symptoms of this condition start soon after an injury and include: ? Pain, especially in the arch of the foot. ? Bruising. ? Swelling. ? Inability to walk or use the foot to support body weight. How is this diagnosed? This condition is diagnosed with a medical history and physical exam. You may also have imaging tests, such as: ? X-rays to make sure there are no br (more content not included)... [facility] XR Foot Complete Lefton 03-20 XR Foot Complete Left CLINICAL HISTORY: Pain. Patient kicked a wall on 04/04/2021 striking anterior aspect of the foot. EXAMINATION: Left foot: 04/05/2021. COMPARISON: Left foot 02/03/2018. FINDINGS: 3 views are provided which demonstrate there is a questionable linear lucency through the distal phalanx of third digit without significant displacement. No other fractures or dislocations are seen. No significant calcifications or radiopaque foreign bodies are seen however on the lateral view there is soft tissue swelling overlying the metatarsals on the dorsal aspect. IMPRESSION: 1. Questionable nondisplaced fracture of the distal phalanx of third digit. 2. No other fractures or dislocations. 3. Soft tissue swelling over the metatarsals seen on the lateral view. Final Dictated by: Vishal Fernandez Dictated DT/TM: 04/05/21 9:14 Signed (Electronic Signature): Vishal Fernandez 04/06/21 8:27 am Technologist: [facility] Coding Summaryon 08-01-2020 Coding Summary HTMLBase 64 TxixjbsrTGo7iCh+PGhlY WQ+YL2NIZXdL66hzJJzhD 6NC6sKAJ5PYPFYJFRFMS5 RMJ0ywZR3SUiuQ3NhluZj HkzayRNlCM63HLd0MOT1r TvsUGijiQ7dnFCyO9q6Gc FlRX89eY37HKtoDUZaFbO 3LjZpbjsgbWFy I4anPcRpyCCaRle+PHRhY mxlIHdpZHRoPScxMDAlJy HsuHbdDF0jLs4vVJUhHUT vbGxhcHNlOiBj q8ydMEPlJMscYN2ifQtdX 8AjzOU1EQWiv7j0Sp89hV I+BXFnWAH4fHieLFxmf21 6VhEpt7eoPLA9 yLGqSOahJKI8O05rf5E8E FLiQHZaIDQ4vYM2eN0svC kjuvatK0IpwQDjPlR7ABT 5rTDkbI5gzFli qpuwqO6yOgu+W31SGC4IV PDTWT1PRvo6Z9WaGqeevA I+JD27PDEaZK40cFHzeOB pe3afeMx7BeHa RDNqUSM5aImiUEmjn8JrR IYlM66taFKfk7Y5XAAvqV hnoRFwPtBnmNU9oV2vDWd oxblre7lpcoua Qoihn5vvtp02sU33K24gK MavPGVsFYV7HSMaDIAzmZ vjyi0pkX3oZj1+SGezz3f xr4yegGv2FyAy WRPmwvXlwTjbGPA9m5LkN w50Z9YdvTkbo3QaVij0rs 97iRTdj5N2qTU6FAetFPX yzD5eFLygUaN9 LUFkVaKqmR89jLZtOVlcO e8xgHxifNqcKW3hXURwgl fpSOMriY4oPYMruVKejJi vMK9rMGNfrmau h204RoTtTKQ9OQFdcGAoS 2GkbL8gJjLyUPUcNSRkX2 FbpWVxJGcvB244NZjxJwV 9HQScrdChP6Ty IOIevYhvIiD4i0I1Tb9Up 1CzwlpkXUI1MSxqOVLmOd S0OnDpFxI3I0XrIvn1BPD erSawDM5dP7Tl DMGjshedzobcyEE5QRIpZ PBglB53nTMiPUlwYi5ke0 N6v792SHQqBNOgpT88Kj1 udDogMTBwdCBU wB0apexds7arvotkMhCuY HYgHTh7VEg4ATXwsFgcKq PkRVU6OdC1YDV0sBXojR8 dzJtulyymeU2b Oyc+K66toJ2eFAE7SWG5l syfMKFaxpSvIB81LR86D2 RyPjwvdGFibGU+PGRpdiB peGzmAV8iYwSd n2cam7TiQQtcI8OrKWLsR JdjRfk1EHLaWNK9cBR0iI 2zWUCuRFhcv0R2lMZ5B1N bzgSxhy9ui0gf SAToRSltY55wpWBus8Q4J ANvsHK1SSXfxEjwEbEvpA 93Oyc+MSAfvQnxa3JaLay ki3asb2yriPi8 CtDuDROhmdCvvUdeXCG8w 9OdMj04R61yYOktTPIvND FkPSHfXFVjlJttnx1rzZ1 wIi8+PGNvbCB3 dVO2bK0uVMEzLiM6GLqkM 193YaGodZNbBoigh1czx7 jkaKi4KtZuOQGmynNewMj eLQZ6p5SkAw29 E43oBGruUGUbFVOvWPZdG GTiqFngsd5ckE0jNy6+PC 6yt5ybsv34mO22hID+PHR cVOW9nSiiMDzf LMMrhP1bNAgeDyW9DAPuV uTylB02zSWxRWjzVr2qhZ wlxBjgXS3mUIVcaljze74 8WlOty6fbVEKb jGMoQCjaEGX9G46qw6G6D UIvYPSuWNT0gIE1fM7crP lnbjogbGVmdDsgdmVydGl sYJuiJSqfQ122 IHRvcDsnPlBhdGllbnQgT xVxANf8H0AfSdt6EBSobH bcFU0dsIAzTOfvGm0bpXb niZouYP8fUWCn raonw071TsSem9laOPLvi CGsJOtrQVJ2R02hk3V8TQ KtJNScDYP4oSS8yC2ozUv nbjogbGVmdDsg jhZhtIdwJQjoCHxwB731J HRvcDsnPkJpcnRoIERhdG H2NS90ZY94xIIzf3T3wLX 4J8NpEZQllmuw sdjjxMZ6FGYsAPWoeC94L s9ezKaaWl4bXINgPNF4WL ZveSHxI4NbmB1xLvYwVLE rGDSdC9WzjOPw ATwnX059AOpnXtY5ZJVdc oNoO4EeSECkoBidMeK0k3 T6As8RJ2C4IO12FD46dKX at9J2aXF6S1Mk MXJybejgcugrtJM2EGOzR BPhtV95Dd3qcSnhFs4gVI QgXLY4UEDddQNzH5IvbS7 yOiAjMDAwMDAw K6SnmLAlRPhiC224KCajU iF6JMHrhwUhN5XjWNBcvW vjZxM3z4T0Ab7QHGb8UD3 7HB05rQDjb4T3 rIA8A9OcNOKywhfleqnfp FL0OEVfFSGzjP12Qi7hmB gdOz1fCQDaFPL8YGIvmMH lS6AjqB8tWgZl ZPTiUPBkC5TjzBXuZXoqJ 796SYqqAqK3LKWfklZmN6 KpNEBoxVbfXaD6r7U6Wt1 IYEPwJK43GHB5 wRC0MR77JT40X2LaChtyh GFibGU+PHRhYmxlIHdpZH RoPScxMDAlJyBzdHlsZT0 sWg1eUQHcZUOz tTrakFBjAyVyu3nlZWFfI JlkDT1vaWdoE4KblWO8TS Ezz3e4Hh28T36hU3SynKN +ZNRboYT1sQV3 wA8uQzVxWeA0BIdoX380O lSapJFxLrbaa0nyu7vjlF a1VzC3RESaboYtnLrdRIR 2c6VqDy98E92p IHdpZHRoPSIxNSUiIHZhb Cyvaw7ccK1nPz7+PGNvbC U2wRJ0uB6uEiGdIxG3DKp tG092OkYfjMWu Ccult3uje6edgBh9IxIcK SMlbkNynCjfRML4l2DgZa 42M1BxiKbge9NjShf5gm7 3lQTkt2X7wPY6 Y5FkYYRkeskziVEjiHjbE C8vGJWcfnbcTIVglI2nXR AfY4x4IdYlJbX9YWclD7E wmvZ5PWFdfZXk LUsmHAU6U52dm8T3KZVmK PSmNVR2yIE1tY3wnGhwyc ogbGVmdDsgdmVydGljYWw dLAuwG516WFSb uLmwUJMczP8uGJZudGDev IfnZZ5zAOVtoevdAlHXET REWSwgSEFOTkFIIEdSQUN BPQ50ME42tIMd a0P7sET8U9EtEXKsckyfs flvfSZ6DWCcWHUkpV15iH HfMKrlLu6ph1K6n435TIB fGWYfkC99Yy1x aFfpMRWlyACKiR4vsjdod 3djypohWsCdYKQfOGh7EE y2MFIiqCjxSjXuMBC9GkO 4LYP4rHCccE4m pOvfvdplhU0sJwb+MDMvM DkvMjAwMTwvdGQ+PHRkIH Z1mJmyMMywVNYldB1rRRI fS2g0GpHeQuP6 HJraY4JxLLVibprfWd98k D1tKrFmVcU9QMdmP3Gpco Q0PFUjwZUbSJikFDI4W79 xx9L4BEBnWYAe PGE1lQU3gM7njDuicxsai GVmdDsgdmVydGljYWwtYW ftE719CGEzyUjwDlMxFVw qVFXtYZ05OS54 hSOop2Y9dCF4V8PlTKNcv iepkrmgeRN1RGOiHQTruS 58hMKmDMopZn5fz8N1e46 3VLSbCJSqkG56 Tj6liHfxWLXmvHLLeS4lq lvub9fywoizZnBcJINeSN a5GOv6PVCitHxfMsRtIPS 0XlU1UGH2lBZz tX0nqKqrmlkktZ5sYuy+R kGRPJbJRH71CR59fMXwy6 A1qNO6H0QjJUAstiixbkf vqBP5KGIkOTIa mG24eGTgMPohHq0dm1P6d 078QPOdVQSgrR24As7qfO ixXSEeeXACwS8gxshtm0e vcjogIzAwMDAw WJn5QRd2GBLeaWtwWlVhK YP6CoU2CAB6eCWhaH4dkZ llqhfoaC6vCta+N5N0V4L kPjwvdHI+PC90 XJRwCV44rVZhaTDme7izc Jz2BuMgDHXtDKQ7oNkrPH zgo9IdJXFeY39orQUdo5N 6IGNvbGxhcHNl HwEgvWT3wY1eIOxtacgss 9uulacyPkjyn7pmpq52lP 60U60gYRqdDXRlWCTlTEY hHDYlmBdvcb1y qG9oAu4+SOVmdJX2hZK4o O5yHgVoRmC4FOzuA956Ye YgoOOoLgdqs0xht1wyaQr 9IjIwJSIgdmFs zDojPEA9n2LqJe48Z61zB HdpZHRoPSIyMCUiIHZhbG ygxn1jyC5rSy9+WN8wm4k wer34cS31dLZ+ VQMiRWV2sLanKBjlFBAnu O0iRLrtFpA4WNQkWrFvuU 27pCLwBTywGm9gkDoayLr yUO8iPNTpjcir n324GbQiu7yoFKZlhCChV IyeIJH5V74uj3I1AZYkVL NtVZF9pBG6qQ9xlUxqxxt gbGVmdDsgdmVy yRrbZMdnWZtuF209TYDbh KsnQoQamSSiR5lughHZCJ 1lOjwvdGQ+PQHpFUE7yWf nDYrxBJQsgT1a OAAyP7u5GgIuVlE3ZPicF 6FbqlQ4KIGcjAAmJGKuyF YEgT3wjekuh8ktjjitBzZ zHEFkXAi2ARc5 DPTmdGsuKzIvVFL5LhC4E JZ8gFBnqG6rnEghwzgykT 9wOyc+RklOOjwvdGQ+PHR xDGD2oDvyZYjs ECGlgT7wDPPdB7t8XyOwK eT7MApmF9QawuS8LDGpnZ ZxZOWmhPJOcD9jznpxn6c vcjogIzAwMDAw SAz0KBt2ZGLjqGqdTnHdE UW8PrC4BTA6yTRfsU8rmC hwwxiryZ8uYnw+TVJOOjw vdGQ+PHRkIHN0 zUlaPMkrVLFenL9vXWOqE 1t3QxLzUsA3PJlcA7Wnqq Z5OYHexSRpXCRzxYOEjW9 myuoak2iwohhi ZiUpGMOjIWj6ZGq0OCRmb QhuKzRqDFV3DuY9LUG3vW YrmC5agBlyyvxfhB6jTok +LOD0AWL9NL99 DR94S7EtMlslvKYdvYH+P HRhYmxlIHdpZHRoPScxMD LtOuZxdFeyKY8mDx5jMBZ yLWNvbGxhcHNl OiB (more content not included)... Normal [facility] C Throaton 07-31-2020 C Throat Ordered by Discern. Normal throat regi isolated No pathogens isolated [facility] Comment on above: Performed By: #### [id number] ####[facility] (DEFAULT)[address] [place] [address] ED Clinical Summaryon 2020 ED Clinical Summary [facility] ? Urgent Care [address] [place] [id number] Clinical Summary PERSON INFORMATION Name: LEIGH MONTOYA Age: 20 Years Sex: FEMALE : 2000 MRN: Acct#: Visit Reason: UC - Sore Throat; THROAT PAIN Arrival: 07/29/2020 09:44:22 Discharge: 07/29/2020 10:23:00 LOS: 000 00:39 Check In: 07/29/2020 09:44:22 Checkout: 07/29/2020 10:23:00 Address: [address] [place] [id number] PCP: Flex Wang DO PROVIDER INFORMATION Provider Role Assigned Unassigned OK Patel, Chely ED Nurse 07/29/2020 09:49:20 07/29/2020 09:55:47 Patricia Meeks PA-C ED PA 07/29/2020 09:50:37 Ludin EUCEDA, Janette ED Nurse 07/29/2020 10:04:19 VITALS INFORMATION Vital Sign Triage Latest Temperature Tympanic Temperature Temporal Artery Pulse Rate O2 Sat 98 % 98 % Respiratory Rate Blood Pressure /70 mmHg /70 mmHg MEDICAL INFORMATION Medications Given: Medication Dose Route dexamethasone 10 mg PO Allergy Information: sulfamethoxazole; ibuprofen PHYSICIAN DOCUMENTATION Patient: LEIGH MONTOYA Age: 20 years Sex: FEMALE : 2000 Associated Diagnoses: Pharyngitis Author: Patricia Meeks PA-C Basic Information Time seen: Date 07/29/2020. History source: Patient. History limitation: None. History of Present Illness 20-year-old female presents with a sore throat that started yesterday. She is requesting a strep swab. Denies heartburn. Denies postnasal drip. Denies fever, ear pain, cough, difficulty swallowing, drooling, voice change Review of Systems Additional review of systems information: All other systems reviewed and otherwise negative. Health Status Allergies: Allergic Reactions (Selected) Mild Ibuprofen- No reactions were documented. Sulfamethoxazole- No reactions were documented.. Medications: (Selected) Documented Medications Documented Iron 100 Plus oral tablet: 1 tab(s), PO, Daily, 0 Refill(s) Jolessa 0.15 mg-30 mcg oral tablet: TAKE 1 TABLET BY MOUTH ONCE DAILY metFORMIN 500 mg oral tablet: 500 mg = 1 tab(s), PO, BID, 0 Refill(s). Past Medical/ Family/ Social History Medical history: No active or resolved past medical history items have been selected or recorded.. Surgical history: No active procedure history items have been selected or recorded.. Family history: No family history items have been selected or recorded.. Social history: Social & Psychosocial Habits Alcohol 06/18/2020 Alcohol Use: Never Substance Abuse 06/18/2020 Substance use: Never Tobacco 06/18/2020 Smoking tobacco use: Never (less than 100 in l Electronic Cigarette/Vaping 06/18/2020 Electronic Cigarette Use: Never . Problem list: Active Problems (2) History of ovarian cyst Polycystic ovarian syndrome . Physical Examination Vital Signs Vital Signs 07/29/2020 9:50 EST Temperature Oral 37.1 DegC Peripheral Pulse Rate 92 bpm Respiratory Rate 16 br/min Systolic Blood Pressure 118 mmHg Diastolic Blood Pressure 70 mmHg SpO2 98 % Oxygen Therapy Room air . General: Alert, no acute distress. Skin: Warm, dry, pink, intact. Head: Normocephalic, atraumatic. Neck: Supple, trachea midline. Eye: Extraocular movements are intact. Ears, nose, mouth and throat: Oral mucosa moist, Minimal pharyngeal erythema, Throat: Tonsil, gag reflex present, not with exudate, no swelling, no palatal petechiae, no uvula shift. Cardiovascular: Regular rate and rhythm. Respiratory: Lungs are clear to auscultation, respirations are non-labored, breath sounds are equal, Symmetrical chest wall expansion, Cough: None. Musculoskeletal: Normal ROM. Neurological: Alert and oriented to person, place, time, and situation, normal speech observed. Psychiatric: Cooperative, appropriate mood & affect. Medical Decision Making Differential Diagnosis: Viral syndrome, pharyngitis. Rationale: 20-year-old female presents with a sore throat since yesterday and is requesting to be swab for strep. She will be medicated with Decadron for sore throat. She does not have diabetes. She states that she is on the Metformin for PCOS, but has never been told she has diabetes. Strep is negative and this is likely viral. She is to call her family doctor today to schedule follow-up appointment. Afebrile, not tachycardic, tolerating PO and ambulating at baseline and hemodynamically stable at time of discharge. educated on when to return to ER. if any new or worsening sx, needs rechecked. answered all questions. pt in agreement with tx.. Orders Launch Orders Laboratory: Rapid Strep (Order): Throat, 07/29/2020 9:58 EST, Stat collect, Nurse collect, Launch Orders Pharmacy: dexamethasone (Order): 10 mg, PO, Once. Results review: Lab results : Lab Flowsheet 07/29/2020 9:55 EST Streptococcus A Negative . Impression and Plan Diagnosis Pharyngitis ([id number] J02.9, Discharge, Medical) Plan Condition: Stable. Disposition: Discharged: Time 07/29/2020 10:17:00 (more content not included)... Normal [facility] ED Note - Provideron 021 ED Note - Provider Patient: LEIGH MONTOYA Age: 20 years Sex: FEMALE : 2000 Associated Diagnoses: Pharyngitis Author: Patricia Meeks PA-C Basic Information Time seen: Date 07/29/2020. History source: Patient. History limitation: None. History of Present Illness 20-year-old female presents with a sore throat that started yesterday. She is requesting a strep swab. Denies heartburn. Denies postnasal drip. Denies fever, ear pain, cough, difficulty swallowing, drooling, voice change Review of Systems Additional review of systems information: All other systems reviewed and otherwise negative. Health Status Allergies: Allergic Reactions (Selected) Mild Ibuprofen- No reactions were documented. Sulfamethoxazole- No reactions were documented.. Medications: (Selected) Documented Medications Documented Iron 100 Plus oral tablet: 1 tab(s), PO, Daily, 0 Refill(s) Jolessa 0.15 mg-30 mcg oral tablet: TAKE 1 TABLET BY MOUTH ONCE DAILY metFORMIN 500 mg oral tablet: 500 mg = 1 tab(s), PO, BID, 0 Refill(s). Past Medical/ Family/ Social History Medical history: No active or resolved past medical history items have been selected or recorded.. Surgical history: No active procedure history items have been selected or recorded.. Family history: No family history items have been selected or recorded.. Social history: Social & Psychosocial Habits Alcohol 06/18/2020 Alcohol Use: Never Substance Abuse 06/18/2020 Substance use: Never Tobacco 06/18/2020 Smoking tobacco use: Never (less than 100 in l Electronic Cigarette/Vaping 06/18/2020 Electronic Cigarette Use: Never . Problem list: Active Problems (2) History of ovarian cyst Polycystic ovarian syndrome . Physical Examination Vital Signs Vital Signs 07/29/2020 9:50 EST Temperature Oral 37.1 DegC Peripheral Pulse Rate 92 bpm Respiratory Rate 16 br/min Systolic Blood Pressure 118 mmHg Diastolic Blood Pressure 70 mmHg SpO2 98 % Oxygen Therapy Room air . General: Alert, no acute distress. Skin: Warm, dry, pink, intact. Head: Normocephalic, atraumatic. Neck: Supple, trachea midline. Eye: Extraocular movements are intact. Ears, nose, mouth and throat: Oral mucosa moist, Minimal pharyngeal erythema, Throat: Tonsil, gag reflex present, not with exudate, no swelling, no palatal petechiae, no uvula shift. Cardiovascular: Regular rate and rhythm. Respiratory: Lungs are clear to auscultation, respirations are non-labored, breath sounds are equal, Symmetrical chest wall expansion, Cough: None. Musculoskeletal: Normal ROM. Neurological: Alert and oriented to person, place, time, and situation, normal speech observed. Psychiatric: Cooperative, appropriate mood & affect. Medical Decision Making Differential Diagnosis: Viral syndrome, pharyngitis. Rationale: 20-year-old female presents with a sore throat since yesterday and is requesting to be swab for strep. She will be medicated with Decadron for sore throat. She does not have diabetes. She states that she is on the Metformin for PCOS, but has never been told she has diabetes. Strep is negative and this is likely viral. She is to call her family doctor today to schedule follow-up appointment. Afebrile, not tachycardic, tolerating PO and ambulating at baseline and hemodynamically stable at time of discharge. educated on when to return to ER. if any new or worsening sx, needs rechecked. answered all questions. pt in agreement with tx.. Orders Launch Orders Laboratory: Rapid Strep (Order): Throat, 07/29/2020 9:58 EST, Stat collect, Nurse collect, Launch Orders Pharmacy: dexamethasone (Order): 10 mg, PO, Once. Results review: Lab results : Lab Flowsheet 07/29/2020 9:55 EST Streptococcus A Negative . Impression and Plan Diagnosis Pharyngitis ([id number] J02.9, Discharge, Medical) Plan Condition: Stable. Disposition: Discharged: Time 07/29/2020 10:17:00, to home. Patient was given the following educational materials: Pharyngitis, Cbee-cr-Qtir, Pharyngitis, Bwuj-pe-Iltl. Follow up with: Flex Wang Within 2 to 4 days You tested negative for strep The Decadron is a steroid and this was to help your sore throat You can use salt water gargles and honey with green tea If you develop a fever or new or worsening symptoms and get rechecked Call your family doctor today to schedule a follow-up appointment. Counseled: Patient, Regarding diagnosis, Regarding diagnostic results, Regarding treatment plan, Patient indicated understanding of instructions. [Electronically Signed on: 07/29/2020 10:20 EST] Patricia Meeks PA-C [Verified on: 07/29/2020 10:20 EST] Patricia Meeks PA-C Normal [facility] ED Patient Summaryon 021 ED Patient Summary [facility] ? Urgent Care [address] [place], [place] [id number] PATIENT DISCHARGE INSTRUCTIONS Patient Information Name: LEIGH MONTOYA Age: 20 Years Date of : 2000 Reason For Visit: UC - Sore Throat; THROAT PAIN Arrival Time: 07/29/2020 09:44:22 Primary Care Physician: Flex Wang DO Attending Physician: Patricia Meeks PA-C Comment: Patient Education With: Address: When: Flex Wang [address] [facility], [place] [address] Business (1) Within 2 to 4 days Comments: You tested negative for strep The Decadron is a steroid and this was to help your sore throat You can use salt water gargles and honey with green tea If you develop a fever or new or worsening symptoms and get rechecked Call your family doctor today to schedule a follow-up appointment Pharyngitis Pharyngitis is a sore throat (pharynx). This is when there is redness, pain, and swelling in your throat. Most of the time, this condition gets better on its own. In some cases, you may need medicine. Follow these instructions at home: ? Take odzm-nie-yceheyn and prescription medicines only as told by your doctor. ? If you were prescribed an antibiotic medicine, take it as told by your doctor. Do not stop taking the antibiotic even if you start to feel better. ? Do not give children aspirin. Aspirin has been linked to Johnathan syndrome. ? Drink enough water and fluids to keep your pee (urine) clear or pale yellow. ? Get a lot of rest. ? Rinse your mouth (gargle) with a salt-water mixture 3?4 times a day or as needed. To make a salt-water mixture, completely dissolve ?-1 tsp of salt in 1 cup of warm water. ? If your doctor approves, you may use throat lozenges or sprays to soothe your throat. Contact a doctor if: ? You have large, tender lumps in your neck. ? You have a rash. ? You cough up green, yellow-brown, or bloody spit. Get help right away if: ? You have a stiff neck. ? You drool or cannot swallow liquids. ? You cannot drink or take medicines without throwing up. ? You have very bad pain that does not go away with medicine. ? You have problems breathing, and it is not from a stuffy nose. ? You have new pain and swelling in your knees, ankles, wrists, or elbows. Summary ? Pharyngitis is a sore throat (pharynx). This is when there is redness, pain, and swelling in your throat. ? If you were prescribed an antibiotic medicine, take it as told by your doctor. Do not stop taking the antibiotic even if you start to feel better. ? Most of the time, pharyngitis gets better on its own. Sometimes, you may need medicine. This information is not intended to replace advice given to you by your health care provider. Make sure you discuss any questions you have with your health care provider. Document Released: 10/22/2008 Document Revised: 04/18/2018 Document Reviewed: 06/11/2017 [employer] Patient Education ? 2020 [employer]. Medication Information: The exam and treatment you received today in the [facility] Emergency Department were for an urgent problem and are not intended as complete care. It is important for you to follow up with a doctor, nurse practitioner, or physician?s habilitation assistant for ongoing care. If your symptoms become worse or you do not improve as expected and you are unable to reach your usual health care provider, you should return to the Emergency Department, we are available 24 hours a day. For those patients who have received Radiology results, the interpretation of your X-ray as given to you by our Emergency Department physician is only a preliminary report. The Radiologist will review your films and if there is a change in the diagnosis you will be notified by phone. Please make sure you have provided a working phone number so we can reach you if necessary. In the event that you had a lab culture while you were a patient in the Emergency Department, you will be notified by phone if there is a need to change your antibiotic. Please make sure you have provided a working phone number so we can reach you if necessary. [facility] Emergency Department has provided you with a complete list of medications post discharge. Please inform your general operations manager/provider of your visit and for further instruction on these medications. Any specific questions regarding your chronic medications and dosages should be discussed with your primary care physician(s) and/or pharmacist. Medications to Continue That Have Not Changed Other Medications ethinyl estradiol-levonorgest rel (Jolessa 0.15 mg-30 mcg oral tablet) TAKE 1 TABLET BY MOUTH ONCE DAILY. metFORMIN (metFORMIN 500 mg oral tablet) 1 tab(s) Oral 2 times a day. multivitamin with iron (Iron 100 Plus oral tablet) 1 tab(s) Oral every day. Visit Information Visit Diagnosis: Diagnoses This Visit Pharyngitis (J02.9) UC - Sore Throat (C11 (more content not included)... Normal [facility] Strep Aon 07-29-2020 Strep procedure control Pass Normal [facility] Comment on above: Performed By: #### [id number] ####[facility] (DEFAULT)[address] [place] [id number] Streptococcus A Negative Normal Negative [facility] Comment on above: Performed By: #### [id number] ####[facility] (DEFAULT)[address] [place] [id number] Urgent Care [place] 021 Urgent Care Record [facility] ? Urgent Care [address] [place] [address] [id number] PATIENT DISCHARGE INSTRUCTIONS Patient Information Name: LEIGH MONTOYA Age: 20 Years Date of : 2000 Reason For Visit: UC - Sore Throat; THROAT PAIN Arrival Time: 07/29/2020 09:44:22 Primary Care Physician: Flex Wang DO Attending Physician: Patricia Meeks PA-C Comment: Visit Diagnosis: Diagnoses This Visit Pharyngitis (J02.9) UC - Sore Throat ([id number]) If you received any narcotics, sedation, or any other medication that causes drowsiness for the next 24 hours, unless otherwise directed: ? Do not drive a car. ? Do not operate machinery such as power tools, lawn mowers, drills, sewing machines, or stoves ? Avoid alcoholic beverages and drugs for allergies, nerves, or sleep ? Do not make important personal or business decisions or sign any legal documents With: Address: When: Flex Wang [address] [facility], [address] [place], [place] [id number] Business (1) Within 2 to 4 days Comments: You tested negative for strep The Decadron is a steroid and this was to help your sore throat You can use salt water gargles and honey with green tea If you develop a fever or new or worsening symptoms and get rechecked Call your family doctor today to schedule a follow-up appointment Medication Information: The exam and treatment you received today in the [facility] Urgent Care were for an urgent problem and are not intended as complete care. It is important for you to follow up with a doctor, nurse practitioner, or physician?s habilitation assistant for ongoing care. If your symptoms become worse or you do not improve as expected and you are unable to reach your usual health care provider, you should return to the Emergency Department, we are available 24 hours a day. For those patients who have received Radiology results, the interpretation of your X-ray as given to you by our Urgent Care physician is only a preliminary report. The Radiologist will review your films and if there is a change in the diagnosis you will be notified by phone. Please make sure you have provided a working phone number so we can reach you if necessary. In the event that you had a lab culture while you were a patient in the Urgent Care, you will be notified by phone if there is a need to change your antibiotic. Please make sure you have provided a working phone number so we can reach you if necessary. [facility] Urgent Care has provided you with a complete list of medications post discharge. Please inform your general operations manager/provider of your visit and for further instruction on these medications. Any specific questions regarding your chronic medications and dosages should be discussed with your primary care physician(s) and/or pharmacist. Medications to Continue That Have Not Changed Other Medications ethinyl estradiol-levonorgest rel (Jolessa 0.15 mg-30 mcg oral tablet) TAKE 1 TABLET BY MOUTH ONCE DAILY. metFORMIN (metFORMIN 500 mg oral tablet) 1 tab(s) Oral 2 times a day. multivitamin with iron (Iron 100 Plus oral tablet) 1 tab(s) Oral every day. Visit Information Allergies: Substance Reaction Symptoms Type Comments ibuprofen Drug hives sulfamethoxazole Drug hives Vital Signs: Vitals and Measurements this Visit (last charted value for your 07/29/2020 visit) Vital Signs This Visit Temperature Oral: 37.1 DegC Peripheral Pulse Rate: 92 bpm Respiratory Rate: 16 br/min Systolic Blood Pressure: 118 mmHg Diastolic Blood Pressure: 70 mmHg SpO2: 98 % Oxygen Therapy: Room air Measurements This Visit Height: 160.02 cm Weight: 92.08 kg Body Mass Index: 35.96 kg/m2 Problems List: Problem Onset Comments Polycystic ovarian syndrome Patient Education Pharyngitis Pharyngitis is a sore throat (pharynx). This is when there is redness, pain, and swelling in your throat. Most of the time, this condition gets better on its own. In some cases, you may need medicine. Follow these instructions at home: ? Take kflv-rit-mcbzemn and prescription medicines only as told by your doctor. ? If you were prescribed an antibiotic medicine, take it as told by your doctor. Do not stop taking the antibiotic even if you start to feel better. ? Do not give children aspirin. Aspirin has been linked to Johnathan syndrome. ? Drink enough water and fluids to keep your pee (urine) clear or pale yellow. ? Get a lot of rest. ? Rinse your mouth (gargle) with a salt-water mixture 3?4 times a day or as needed. To make a salt-water mixture, completely dissolve ?-1 tsp of salt in 1 cup of warm water. ? If your doctor approves, you may use throat lozenges or sprays to soothe your throat. Contact a doctor if: ? You have large, tender lumps in your neck. ? You have a rash. ? You cough up green, yellow-brown, or bloody spit. Get help righ (more content not included)... [facility] Coding Summaryon 06-27-2020 Coding Summary CODING DATE: 06/27/2020 [facility] STATUS: Home PAYOR: Commercial Insurance ADMIT DX: REASON FOR VISIT DX: H92.01 Otalgia, right ear FINAL DX: PRINCIPAL: H66.91 Otitis media, unspecified, right ear SECONDARY: PYMT PROC APC STAT DESCRIPTION DOCTOR NAME DATE NOTE: The code number assigned matches the documented diagnosis and / or procedure in the patient's chart. However, the narrative phrase printed from the coding software may appear abbreviated, or result in slightly different terminology. Coded By: Nano Padilla Date Saved: 06/27/2020 12:37 pm [facility] ED Clinical Summaryon 2020 ED Clinical Summary [facility] ? Urgent Care [address] [place] [id number] Clinical Summary PERSON INFORMATION Name: LEIGH MONTOYA Age: 19 Years Sex: FEMALE : 2000 MRN: Acct#: Visit Reason: UC - Ear Pain; UC - Ear Pain; RIGHT EAR PAIN Arrival: 06/18/2020 15:00:59 Discharge: 06/18/2020 15:27:00 LOS: 000 00:27 Check In: 06/18/2020 15:00:59 Checkout: 06/18/2020 15:27:00 Address: [address] [place], [place] [id number] PCP: Flex Wang DO PROVIDER INFORMATION Provider Role Assigned Unassigned Monica Dunn SPECIAL NEEDS CHILD CAREGIVER Nurse 06/18/2020 15:03:15 Spasic PA, Marv ED PA 06/18/2020 15:03:24 VITALS INFORMATION Vital Sign Triage Latest Temperature Tympanic Temperature Temporal Artery Pulse Rate O2 Sat 98 % 98 % Respiratory Rate Blood Pressure /78 mmHg /78 mmHg MEDICAL INFORMATION Medications Given: Allergy Information: sulfamethoxazole; ibuprofen PHYSICIAN DOCUMENTATION DISCHARGE INFORMATION: Discharge Disposition: Home Discharge Location: Home PATIENT EDUCATION INFORMATION Instructions: Otitis Media, Adult, Rvij-ib-Gugs Follow-Up: With: Address: When: Flex Wang [address] [place] [address] Business (1) Comments: Begin on the amoxicillin-clavulana te antibiotic take every 12 hours for the next 10 days Follow-up with your primary care physician in 3-5 days for reevaluation, sooner if any worsening symptoms DIAGNOSIS: Otitis media, right Patient Understands: Yes - Patient/family/caregi nela verbalizes understanding of instructions given Comment: Normal [facility] ED Patient Summaryon 021 ED Patient Summary [facility] ? Urgent Care [address] [place] [id number] PATIENT DISCHARGE INSTRUCTIONS Patient Information Name: LEIGH MONTOYA Age: 19 Years Date of : 2000 Reason For Visit: UC - Ear Pain; UC - Ear Pain; RIGHT EAR PAIN Arrival Time: 06/18/2020 15:00:59 Primary Care Physician: Flex Wang DO Attending Physician: Marv Shannon Comment: Patient Education With: Address: When: Flex Wang [address] [facility], [place] [address] Business (1) Comments: Begin on the amoxicillin-clavulana te antibiotic take every 12 hours for the next 10 days Follow-up with your primary care physician in 3-5 days for reevaluation, sooner if any worsening symptoms Otitis Media, Adult Otitis media means that the middle ear is red and swollen (inflamed) and full of fluid. The condition usually goes away on its own. Follow these instructions at home: ? Take lglw-dsv-tzjpfhe and prescription medicines only as told by your doctor. ? If you were prescribed an antibiotic medicine, take it as told by your doctor. Do not stop taking the antibiotic even if you start to feel better. ? Keep all follow-up visits as told by your doctor. This is important. Contact a doctor if: ? You have bleeding from your nose. ? There is a lump on your neck. ? You are not getting better in 5 days. ? You feel worse instead of better. Get help right away if: ? You have pain that is not helped with medicine. ? You have swelling, redness, or pain around your ear. ? You get a stiff neck. ? You cannot move part of your face (paralyzed). ? You notice that the bone behind your ear hurts when you touch it. ? You get a very bad headache. Summary ? Otitis media means that the middle ear is red, swollen, and full of fluid. ? This condition usually goes away on its own. In some cases, treatment may be needed. ? If you were prescribed an antibiotic medicine, take it as told by your doctor. This information is not intended to replace advice given to you by your health care provider. Make sure you discuss any questions you have with your health care provider. Document Released: 10/22/2008 Document Revised: 04/18/2018 Document Reviewed: 05/27/2017 Else[employer] Patient Education ? 2019 [employer] Medication Information: The exam and treatment you received today in the [facility] Emergency Department were for an urgent problem and are not intended as complete care. It is important for you to follow up with a doctor, nurse practitioner, or physician?s habilitation assistant for ongoing care. If your symptoms become worse or you do not improve as expected and you are unable to reach your usual health care provider, you should return to the Emergency Department, we are available 24 hours a day. For those patients who have received Radiology results, the interpretation of your X-ray as given to you by our Emergency Department physician is only a preliminary report. The Radiologist will review your films and if there is a change in the diagnosis you will be notified by phone. Please make sure you have provided a working phone number so we can reach you if necessary. In the event that you had a lab culture while you were a patient in the Emergency Department, you will be notified by phone if there is a need to change your antibiotic. Please make sure you have provided a working phone number so we can reach you if necessary. [facility] Emergency Department has provided you with a complete list of medications post discharge. Please inform your general operations manager/provider of your visit and for further instruction on these medications. Any specific questions regarding your chronic medications and dosages should be discussed with your primary care physician(s) and/or pharmacist. New Medications [id number], [address] [place] [id number], [phone] amoxicillin-clavulana te (Augmentin 500 mg-125 mg oral tablet) 1 tab(s) Oral Every 12 hours scheduled time for 10 Days. Refills: 0. Medications to Continue That Have Not Changed Other Medications ethinyl estradiol-levonorgest rel (Jolessa 0.15 mg-30 mcg oral tablet) TAKE 1 TABLET BY MOUTH ONCE DAILY. metFORMIN (metFORMIN 500 mg oral tablet) 1 tab(s) Oral 2 times a day. multivitamin with iron (Iron 100 Plus oral tablet) 1 tab(s) Oral every day. Visit Information Visit Diagnosis: Diagnoses This Visit Otitis media, right (H66.91) UC - Ear Pain ([id number]) UC - Ear Pain ([id number]) If you received any narcotics, sedation, or any other medication that causes drowsiness for the next 24 hours, unless otherwise directed: ? Do not drive a car. ? Do not operate machinery such as power tools, lawn mowers, drills, sewing machines, or stoves ? Avoid alcoholic beverages and drugs for allergies, n (more content not included)... Normal [facility] Urgent Care Note- Provideron 06-18-2020 Urgent Care Note- Provider Patient: LEIGH MONTOYA Age: 19 years Sex: FEMALE : 2000 Associated Diagnoses: Otitis media, right Author: Marv Shannon Basic Information Time seen: Date & time 06/18/2020 15:11:00. History source: Patient. History limitation: None. Additional information: Chief Complaint from Nursing Triage Note : Chief Complaint 06/18/2020 15:08 EST Chief Complaint Right ear pain started yesterday. . History of Present Illness Patient is a 19 year-old female complaint of right ear pain. No pain in the contralateral ear. Denies any sore throat. No other complaints or concerns. Patient with no known medication allergies. ROS Constitutional negative ENMT negative Resp negative Additional negative Physical exam General - alert no acute distress Skin - warm dry Head -normocephalic atraumatic Eye - normal conjunctiva ENMT - right TM bulging and erythematous, right EAC with subtle edema, no erythema, L TM pearly snea white, EAC without erythema or edema Neck - supple Cardiovascular - regular rate regular rhythm, no murmur, normal peripheral perfusion Respiratory - lungs clear to auscultation, nonlabored respirations, breath sounds equal Lymphatics - no lymphadenopathy Medical decision making Diff OM, OE, swimmer's ear, foreign body, impaction, upper respiratory infection, tinnitus, mastoiditis, viral syndrome Physical exam findings consistent with otitis media. Patient will be treated with Augmentin. Follow-up with primary care provider in 5-7 days sooner if worse. Health Status Allergies: Allergic Reactions (Selected) Mild Ibuprofen- No reactions were documented. Sulfamethoxazole- No reactions were documented.. Medications: (Selected) Documented Medications Documented Iron 100 Plus oral tablet: 1 tab(s), PO, Daily, 0 Refill(s) Jolessa 0.15 mg-30 mcg oral tablet: TAKE 1 TABLET BY MOUTH ONCE DAILY metFORMIN 500 mg oral tablet: 500 mg = 1 tab(s), PO, BID, 0 Refill(s). Past Medical/ Family/ Social History Medical history: No active or resolved past medical history items have been selected or recorded.. Surgical history: No active procedure history items have been selected or recorded.. Family history: No family history items have been selected or recorded.. Social history: Social & Psychosocial Habits Alcohol 06/18/2020 Alcohol Use: Never Substance Abuse 06/18/2020 Substance use: Never Tobacco 06/18/2020 Smoking tobacco use: Never (less than 100 in l Electronic Cigarette/Vaping 06/18/2020 Electronic Cigarette Use: Never . Problem list: Active Problems (2) History of ovarian cyst Polycystic ovarian syndrome . Physical Examination Vital Signs Vital Signs 06/18/2020 15:08 EST Temperature Oral 36.9 DegC Peripheral Pulse Rate 93 bpm Respiratory Rate 16 br/min Systolic Blood Pressure 129 mmHg Diastolic Blood Pressure 78 mmHg SpO2 98 % Oxygen Therapy Room air . Measurements 06/18/2020 15:08 EST Height 160.02 cm Weight 89.91 kg Body Mass Index 35.11 kg/m2 . Impression and Plan Diagnosis Otitis media, right ([id number] H66.91, Discharge, Medical) Plan Prescriptions: Launch prescriptions Pharmacy: Augmentin 500 mg-125 mg oral tablet (Prescribe): 1 tab(s), PO, q12hr, for 10 day(s), 20 tab(s), 0 Refill(s). Patient was given the following educational materials: Otitis Media, Adult, Evui-yp-Mrko. Follow up with: Flex Wang Begin on the amoxicillin-clavulana te antibiotic take every 12 hours for the next 10 days Follow-up with your primary care physician in 3-5 days for reevaluation, sooner if any worsening symptoms. Counseled: Patient, Regarding diagnosis, Regarding diagnostic results, Regarding treatment plan, Regarding prescription, Patient indicated understanding of instructions. Normal [facility] Urgent Care [place] 021 Urgent Care Record [facility] ? Urgent Care [address] [place] [address] PATIENT DISCHARGE INSTRUCTIONS Patient Information Name: LEIGH MONTOYA Age: 19 Years Date of : 2000 [facility]: [id number] Reason For Visit: UC - Ear Pain; UC - Ear Pain; RIGHT EAR PAIN Arrival Time: 06/18/2020 15:00:59 Primary Care Physician: Flex Wang DO Attending Physician: Marv Shannon Comment: Visit Diagnosis: Diagnoses This Visit Otitis media, right (H66.91) UC - Ear Pain ([id number]) UC - Ear Pain ([id number]) If you received any narcotics, sedation, or any other medication that causes drowsiness for the next 24 hours, unless otherwise directed: ? Do not drive a car. ? Do not operate machinery such as power tools, lawn mowers, drills, sewing machines, or stoves ? Avoid alcoholic beverages and drugs for allergies, nerves, or sleep ? Do not make important personal or business decisions or sign any legal documents With: Address: When: Flex Wang [address], [place] [address] Business (1) Comments: Begin on the amoxicillin-clavulana te antibiotic take every 12 hours for the next 10 days Follow-up with your primary care physician in 3-5 days for reevaluation, sooner if any worsening symptoms Medication Information: The exam and treatment you received today in the [facility] Urgent Care were for an urgent problem and are not intended as complete care. It is important for you to follow up with a doctor, nurse practitioner, or physician?s habilitation assistant for ongoing care. If your symptoms become worse or you do not improve as expected and you are unable to reach your usual health care provider, you should return to the Emergency Department, we are available 24 hours a day. For those patients who have received Radiology results, the interpretation of your X-ray as given to you by our Urgent Care physician is only a preliminary report. The Radiologist will review your films and if there is a change in the diagnosis you will be notified by phone. Please make sure you have provided a working phone number so we can reach you if necessary. In the event that you had a lab culture while you were a patient in the Urgent Care, you will be notified by phone if there is a need to change your antibiotic. Please make sure you have provided a working phone number so we can reach you if necessary. [facility] Urgent Care has provided you with a complete list of medications post discharge. Please inform your general operations manager/provider of your visit and for further instruction on these medications. Any specific questions regarding your chronic medications and dosages should be discussed with your primary care physician(s) and/or pharmacist. New Medications [facility], [address] [place], [place] [id number], [phone] amoxicillin-clavulana te (Augmentin 500 mg-125 mg oral tablet) 1 tab(s) Oral Every 12 hours scheduled time for 10 Days. Refills: 0. Medications to Continue That Have Not Changed Other Medications ethinyl estradiol-levonorgest rel (Jolessa 0.15 mg-30 mcg oral tablet) TAKE 1 TABLET BY MOUTH ONCE DAILY. metFORMIN (metFORMIN 500 mg oral tablet) 1 tab(s) Oral 2 times a day. multivitamin with iron (Iron 100 Plus oral tablet) 1 tab(s) Oral every day. Visit Information Allergies: Substance Reaction Symptoms Type Comments ibuprofen Drug hives sulfamethoxazole Drug hives Vital Signs: Vitals and Measurements this Visit (last charted value for your 06/18/2020 visit) Vital Signs This Visit Temperature Oral: 36.9 DegC Peripheral Pulse Rate: 93 bpm Respiratory Rate: 16 br/min Systolic Blood Pressure: 129 mmHg Diastolic Blood Pressure: 78 mmHg SpO2: 98 % Oxygen Therapy: Room air Measurements This Visit Height: 160.02 cm Weight: 89.91 kg Body Mass Index: 35.11 kg/m2 Problems List: Problem Onset Comments Polycystic ovarian syndrome Patient Education Otitis Media, Adult Otitis media means that the middle ear is red and swollen (inflamed) and full of fluid. The condition usually goes away on its own. Follow these instructions at home: ? Take wfth-hgw-lqqitjx and prescription medicines only as told by your doctor. ? If you were prescribed an antibiotic medicine, take it as told by your doctor. Do not stop taking the antibiotic even if you start to feel better. ? Keep all follow-up visits as told by your doctor. This is important. Contact a doctor if: ? You have bleeding from your nose. ? There is a lump on your neck. ? You are not getting better in 5 days. ? You feel worse instead of better. Get help right away if: ? You have pain that is not helped with medicine. ? You have swelling, redness, or pain around your ear. ? You get a stiff neck. ? You cannot move part of your face (paralyzed). ? You (more content not included)... [facility] Consent Formson 04-28-2020 Consent Forms [id number] [facility]-28-2020 Provider Orders [id number] [facility] C[facility] Summaryon 04-25-2020 Coding Summary CODING DATE: 04/25/2020 [facility] STATUS: Home PAYOR: Commercial Insurance ADMIT DX: REASON FOR VISIT DX: Z20.89 Contact with and (suspected) exposure to other communicable diseases FINAL DX: PRINCIPAL: Z20.89 Contact with and (suspected) exposure to other communicable diseases SECONDARY: PYMT PROC APC STAT DESCRIPTION DOCTOR NAME DATE NOTE: The code number assigned matches the documented diagnosis and / or procedure in the patient's chart. However, the narrative phrase printed from the coding software may appear abbreviated, or result in slightly different terminology. Coded By: Nano Padilla Date Saved: 04/25/2020 02:38 pm [facility] .QC Respiratory Panel 2.1 (B ioFire)on 04-22-2020 Internal Control-Resp Panel 2.1(BioFire) Pass [facility] Comment on above: Order Comment: Order ed by Holley.[[id number]] Performed By: #### 6 [id number], [id number] ####[facility] (DEFAULT)[address] [place] [address] 35097 Respiratory Panel 2.1 (BioFi re)on 04-22-2020 Adenovirus -BioFire Not detected Normal Not Detected [facility] Comment on above: Performed By: #### 6 [id number], [id number] ####[facility] (DEFAULT)[address] [place] [address] 06828 Bordetella parapertussis -BioFire Not detected Normal Not Detected [facility] Comment on above: Performed By: #### 6 [id number], [id number] ####[facility] (DEFAULT)[address] [place] [address] 14184 Bordetella pertussis -BioFire Not detected Normal Not Detected [facility] Comment on above: Performed By: #### 6 [id number], [id number] ####[facility] (DEFAULT)[address] [place] [address] 90526 Chlamydia pneumoniae -BioFire Not detected Normal Not Detected [facility] Comment on above: Performed By: #### 6 [id number], [id number] ####[facility] (DEFAULT)[address] [place] [address] 38931 Coronavirus 229E (Not COVID-19) -BioFire Not detected Normal Not Detected [facility] Comment on above: Performed By: #### 6 [id number], [id number] ####[facility] (DEFAULT)[address] [place] [address] 07289 Coronavirus HKU1 (Not COVID-19) -BioFire Not detected Normal Not Detected [facility] Comment on above: Performed By: #### 6 [id number], [id number] ####[facility] (DEFAULT)[address] [place] [address] 85643 Coronavirus NL63 (Not COVID-19) -BioFire Not detected Normal Not Detected [facility] Comment on above: Performed By: #### 6 [id number], [id number] ####[facility] (DEFAULT)[address] [place] [address] 05575 Coronavirus OC43 (Not COVID-19) -BioFire Not detected Normal Not Detected [facility] Comment on above: Performed By: #### 6 [id number], [id number] ####[facility] (DEFAULT)[address] [place] [address] 93971 Employed in healthcare? No Invalid Interpretation Code [facility] Comment on above: Performed By: #### 6 [id number], [id number] ####[facility] (DEFAULT)[address] [place] [address] Group care resident? No Invalid Interpretation Code [facility] Comment on above: Performed By: #### 6 [id number], [id number] ####[facility] (DEFAULT)[address] [place] [address] 86967 Human Metapneumovirus -BioFire Not detected Normal Not Detected [facility] Comment on above: Performed By: #### 6 [id number], [id number] ####[facility] (DEFAULT)[address] [place] [address] 14571 Human Rhinovirus/Enterovir us -BioFire Not detected Normal Not Detected [facility] Comment on above: Performed By: #### 6 [id number], [id number] ####[facility] (DEFAULT)[address] [place] [address] In ICU? No Invalid Interpretation Code [facility] Comment on above: Performed By: #### 6 [id number], [id number] ####[facility] (DEFAULT)[address] [place] [address] 47921 Influenza A (no subtype) -BioFire Not detected Normal Not Detected [facility] Comment on above: Performed By: #### 6 [id number], [id number] ####[facility] (DEFAULT)[address] [place] [address] 18967 Influenza A -BioFire Not detected Normal Not Detected [facility] Comment on above: Performed By: #### 6 [id number], [id number] ####[facility] (DEFAULT)[address] [place] [address] 46668 Influenza A H1 -BioFire Not detected Normal Not Detected [facility] Comment on above: Performed By: #### 6 [id number], [id number] ####[facility] (DEFAULT)[address] [place] [address] 07507 Influenza A H1-2009 -BioFire Not detected Normal Not Detected [facility] Comment on above: Performed By: #### 6 [id number], [id number] ####[facility] (DEFAULT)[address] [place] [address] 76648 Influenza A H3 -BioFire Not detected Normal Not Detected [facility] Comment on above: Performed By: #### 6 [id number], [id number] ####[facility] (DEFAULT)[address] [place] [address] 76056 Influenza B -BioFire Not detected Normal Not Detected [facility] Comment on above: Performed By: #### 6 [id number], [id number] ####[facility] (DEFAULT)[address] [place] [address] 51591 Mycoplasma pneumoniae -BioFire Not detected Normal Not Detected [facility] Comment on above: Performed By: #### 6 [id number], [id number] ####[facility] (DEFAULT)[address] [place] [address] 70342 Parainfluenza Virus 1 -BioFire Not detected Normal Not Detected [facility] Comment on above: Performed By: #### 6 [id number], [id number] ####[facility] (DEFAULT)[address] [place] [address] 12178 Parainfluenza Virus 2 -BioFire Not detected Normal Not Detected [facility] Comment on above: Performed By: #### 6 [id number], [id number] ####[facility] (DEFAULT)[address] [place] [address] 99877 Parainfluenza Virus 3 -BioFire Not detected Normal Not Detected [facility] Comment on above: Performed By: #### 6 [id number], [id number] ####[facility] (DEFAULT)[address] [place] [address] 44062 Parainfluenza Virus 4 -BioFire Not detected Normal Not Detected [facility] Comment on above: Performed By: #### 6 [id number], [id number] ####[facility] (DEFAULT)[address] [place] [address] 84971 status? Not Invalid Interpretation Code [facility] Comment on above: Performed By: #### 6 [id number], [id number] ####[facility] (DEFAULT)[address] [place] [address] 03681 Respiratory Syncytial Virus -BioFire Not detected Normal Not Detected [facility] Comment on above: Performed By: #### 6 [id number], [id number] ####[facility] (DEFAULT)[address] [place] [address] 76589 SARS-CoV-2 (COVID-19) RNA OZZIE+probe Ql (Unsp spec) Not detected Normal Not Detected [facility] Comment on above: Performed By: #### 6 [id number], [id number] ####[facility] (DEFAULT)[address] [place] [address] 85710 SARS-CoV-2 (COVID-19) RNA OZZIE+probe Ql (Unsp spec) No Invalid Interpretation Code [facility] Comment on above: Performed By: #### 6 [id number], [id number] ####[facility] (DEFAULT)[address] [place] [address] Symptomatic as defined by CDC? No Invalid Interpretation Code [facility] Comment on above: Performed By: #### 6 [id number], [id number] ####[facility] (DEFAULT)[address] [place] [address] 37722 Vital Signs Date Time Vital Sign Value Performing Clinician Facility 12-06-2021 16:30-0400 Body height 160.02 cm Ezequiel Melo Other [facility] Other 12-06-2021 16:30-0400 Body mass index (BMI) [Ratio] 41.62 kg/m2 Ezequiel Melo Other [facility] Other 12-06-2021 16:30-0400 Body weight 106.6 kg Ezequiel Melo Other [facility] Other 10-11-2021 14:45-0400 Body height 160.02 cm Ezequiel Melo Other [facility] Other 10-11-2021 14:45-0400 Body mass index (BMI) [Ratio] 41.98 kg/m2 Ezequiel Melo Other [facility] Other 10-11-2021 14:45-0400 Body weight 107.5 kg Ezequiel Melo Other [facility] Other 10-11-2021 14:45-0400 Diastolic blood pressure 79 mm[Hg] Ezequiel Angiejessie Other [facility] Other 10-11-2021 14:45-0400 Systolic blood pressure 128 mm[Hg] Ezequiel Angiejessie Other [facility] Other Encounters Encounter Date Encounter Type Care Provider Facility Start: 08-12-2023 End: 08-12-2023 ambulatory YASMINE VERGARA Not Available Start: 08-29-2022 End: 08-29-[address] DOCTOR SUE Facility:[facility] Start: 01-12-2022 End: 01-16-[address] DOCTOR SUE Facility:[facility] Start: 12-06-2021 End: 12-06-2021 ambulatory Ezequiel Melo Other [facility] Other Start: 12-06-2021 Patient encounter procedure Ezequiel Melo [facility] Start: 10-11-2021 End: 10-11-2021 ambulatory Ezequiel Melo Other [facility] Other Start: 10-11-2021 [facility] visit new patient Ezequiel Angiejessie [facility] Payers Date Payer Category Payer Unknown [id number] 2000 Unknown [id number] [id number] [id number] 2000 Unknown [id number] [id number] [id number] 2000 Unknown [id number] [id number] [id number] 1959 Unknown [id number] Medicaid [id number] 2. [id number] Social History Date Type Detail Facility Sex Assigned At [facility] Other Evaluation note 12-06-2021 Note Date & Type Note Facility 12-06-2021 Evaluation note Encounter Date Diagnosis Assessment Notes Nov, Dyspepsia (ICD-10 - K30) patient states does have some bloating in the left center she does have pain noted. patient is advised that we can start levsin and refer to energy assistant for food testing. [facility] Other Evaluation note 10-11-2021 Note Date & Type Note Facility 10-11-2021 Evaluation note Encounter Date Diagnosis Assessment Notes September, Bloating (ICD-10 - R14.0) September, Dyspepsia (ICD-10 - K30) September, Abdominal pain (ICD-10 - R10.9) [facility] Other Clinical Note 04-05-2021 Note Date & Type Note Facility 04-05-2021 Note Patient Education Ma terials Follows: Foot Sprain A foot sprain is an injury to one of the strong bands of tissue (ligaments) that connect and support the bones in your feet. The ligament can be stretched too much and tear. A tear can be either partial or complete. The severity of the sprain depends on how much of the ligament was damaged or torn. What are the causes? This condition is usually caused by suddenly twisting or pivoting your foot. What increases the risk? This injury is more likely to occur in people who: ? Play a sport, such as basketball or football. ? Exercise or play a sport without warming up. ? Start a new workout or sport. ? Suddenly increase how long or hard they exercise or play a sport. ? Have previously injured their foot or ankle. What are the signs or symptoms? Symptoms of this condition start soon after an injury and include: ? Pain, especially in the arch of the foot. ? Bruising. ? Swelling. ? Inability to walk or use the foot to support body weight. How is this diagnosed? This condition is diagnosed with a medical history and physical exam. You may also have imaging tests, such as: ? X-rays to make sure there are no broken bones (fractures). ? An MRI to see if the ligament is torn. How is this treated? Treatment for this condition depends on the severity of the sprain. ? Mild sprains can be treated with: ? Rest, ice, compression, and elevation (RICE). ? Keeping your foot in a fixed position (immobilization) for a period of time. This is done if your ligament is overstretched or partially torn. Your health care provider will apply a bandage, splint, or walking boot to keep your foot from moving until it heals. ? Using crutches or a scooter for a few weeks to avoid putting weight on your foot while it is healing. ? Major sprains can be treated with: ? Surgery. This is done if your ligament is fully torn and a procedure is needed to reconnect it to the bone. ? A cast or splint. This will be needed after surgery. A cast or splint will need to stay on your foot while it heals. ? In both types of sprains, you may need to exercise or have physical therapy to strengthen your foot. Follow these instructions at home: If you have a bandage, splint, or boot: ? Wear the bandage, splint, or boot as told by your health care provider. Remove only as told by your health care provider. ? Loosen the bandage, splint, or boot if your toes tingle, become numb, or turn cold and blue. ? Keep the bandage, splint, or boot clean and dry. If you have a cast: ? Do not stick anything inside the cast to scratch your skin. Doing that increases your risk for infection. ? Check the skin around the cast every day. Tell your health care provider about any concerns. ? You may put lotion on dry skin around the edges of the cast. Do not put lotion on the skin underneath the cast. ? Keep the cast clean and dry. Bathing ? Do not take baths, swim, or use a hot tub until your health care provider approves. Ask your health care provider if you may take showers. You may only be allowed to take sponge baths. ? If the bandage, splint, boot, or cast is not waterproof: ? Do not let it get wet. ? Cover it with a watertight covering when you take a shower. Managing pain, stiffness, and swelling ? If directed, put ice on the injured area: ? If you have a removable splint, boot, or immobilizer, remove it as told by your health care provider. ? Put ice in a plastic bag. ? Place a towel between your skin and the bag. ? Leave the ice on for 20 minutes, 2?3 times per day. ? Move your toes often to avoid stiffness and to lessen swelling. ? Raise (elevate) the injured area above the level of your heart while you are sitting or lying down. Driving ? Do not drive or operate heavy machinery while taking pain medicine. ? Ask your health care provider when it is safe to drive if you have a bandage, splint, or walking boot on your foot. Activity ? Do not use the injured foot to support your body weight until your health care provider says that you can. Use crutches or other supportive devices as directed by your health care provider. ? Ask your health care provider what activities are safe for you. Do any exercise or physical therapy as directed. ? Gradually increase how much and how far you walk until your health care provider says it is safe to return to full activity. General instructions ? If you have a cast, do not put pressure on any part of it until it is fully hardened. This may take several hours. ? Take obrj-zzi-csyjfdk and prescription medicines only as told by your health care provider. ? When you can walk without pain, wear supportive shoes that have stiff soles. Do not wear flip-flops, and do not walk barefoot. ? Keep all follow-up visits as told by your health care provider. This is important. Contact a health care provide (more content not included)... [facility] Clinical Note 07-29-2020 Note Date & Type Note Facility 07-29-2020 Note Patient Education Ma terials Follows:Disease Pharyngitis Pharyngitis is a sore throat (pharynx). This is when there is redness, pain, and swelling in your throat. Most of the time, this condition gets better on its own. In some cases, you may need medicine. Follow these instructions at home: ? Take oedl-wth-tlsuise and prescription medicines only as told by your doctor. ? If you were prescribed an antibiotic medicine, take it as told by your doctor. Do not stop taking the antibiotic even if you start to feel better. ? Do not give children aspirin. Aspirin has been linked to Johnathan syndrome. ? Drink enough water and fluids to keep your pee (urine) clear or pale yellow. ? Get a lot of rest. ? Rinse your mouth (gargle) with a salt-water mixture 3?4 times a day or as needed. To make a salt-water mixture, completely dissolve ?-1 tsp of salt in 1 cup of warm water. ? If your doctor approves, you may use throat lozenges or sprays to soothe your throat. Contact a doctor if: ? You have large, tender lumps in your neck. ? You have a rash. ? You cough up green, yellow-brown, or bloody spit. Get help right away if: ? You have a stiff neck. ? You drool or cannot swallow liquids. ? You cannot drink or take medicines without throwing up. ? You have very bad pain that does not go away with medicine. ? You have problems breathing, and it is not from a stuffy nose. ? You have new pain and swelling in your knees, ankles, wrists, or elbows. Summary ? Pharyngitis is a sore throat (pharynx). This is when there is redness, pain, and swelling in your throat. ? If you were prescribed an antibiotic medicine, take it as told by your doctor. Do not stop taking the antibiotic even if you start to feel better. ? Most of the time, pharyngitis gets better on its own. Sometimes, you may need medicine. This information is not intended to replace advice given to you by your health care provider. Make sure you discuss any questions you have with your health care provider. Document Released: 10/22/2008 Document Revised: 04/18/2018 Document Reviewed: 06/11/2017 Elsevier Patient Education ? 2020 [employer]. [facility] Clinical Note 06-18-2020 Note Date & Type Note Facility 06-18-2020 Note Patient Education Ma terials Follows: Otitis Media, Adult Otitis media means that the middle ear is red and swollen (inflamed) and full of fluid. The condition usually goes away on its own. Follow these instructions at home: ? Take jugr-ukj-mczxvda and prescription medicines only as told by your doctor. ? If you were prescribed an antibiotic medicine, take it as told by your doctor. Do not stop taking the antibiotic even if you start to feel better. ? Keep all follow-up visits as told by your doctor. This is important. Contact a doctor if: ? You have bleeding from your nose. ? There is a lump on your neck. ? You are not getting better in 5 days. ? You feel worse instead of better. Get help right away if: ? You have pain that is not helped with medicine. ? You have swelling, redness, or pain around your ear. ? You get a stiff neck. ? You cannot move part of your face (paralyzed). ? You notice that the bone behind your ear hurts when you touch it. ? You get a very bad headache. Summary ? Otitis media means that the middle ear is red, swollen, and full of fluid. ? This condition usually goes away on its own. In some cases, treatment may be needed. ? If you were prescribed an antibiotic medicine, take it as told by your doctor. This information is not intended to replace advice given to you by your health care provider. Make sure you discuss any questions you have with your health care provider. Document Released: 10/22/2008 Document Revised: 04/18/2018 Document Reviewed: 05/27/2017 [employer] Patient Education ? 2019 [employer] [facility]. [facility] Clinical Note 04-22-2020 Note Date & Type Note Facility 04-22-2020 Note Nasal swab performed without complication. Patient tolerated well. Education given. Patient verbalized understanding. [Electronically Signed on: 04/22/2020 15:05 EST] Miri Nuñez RN [Verified on: 04/22/2020 15:05 EST] Miri Nuñez RN [facility] Hospital History general Narrative - Reported Note Date & Type Note Facility History general Narrative - Reported Type Medical History PCOS Medical History Endometriosis Surgical History laparoscopy - endometriosis [facility] Other Reason for referral (narrative) Note Date & Type Note Facility Reason for referral (narrative) Diagnosis 1 Dyspepsia (K30) Referral Organization [facility] Referring Provider First Name Ezequiel Referring Provider Last Name Lorie Referring Provider Specialty Gastroenter ology Referred Organization Unknown Facility Referred Provider Kenyon Alvarez Referred Provider Specialty Allergy/Immu nology Referral Priority Routine General Notes Terri Gunderson 022 03:45:51 PM > patient insurance will be new on 01/02/2022 if she is able to get in before this. [facility] Other Reason for visit Narrative Note Date & Type Note Facility Reason for visit Narrative PATIENT HERE AT THE REQUEST OF DR. VERGARA FOR EVALUATION & TREATMENT OF BLOATING [facility] Other Reason for visit Narrative Note Date & Type Note Facility Reason for visit Narrative PATIENT HERE FOR FOLLOW UP EGD. PT WAS STARTED ON [facility] FOLLOWING PROCEDURE., patient states that she is having bad stomach cramps feels like a stabbing pain to a centeralized spot on the left side., patient states that she did not start the dicyclomine dues to some of the side effects that were listed. [facility] Other Summary Purpose Family History No Family History Records FoundNo Family History Records FoundNo Family History Records FoundNo Family History Records Found Advance Directives No Advanced Directives Records FoundNo Advanced Directives Records FoundNo Advanced Directives Records FoundNo Advanced Directives Records Found Additional Source Comments INFORMATION SOURCE (unrecogn ized section and content) DATE CREATED AUTHOR 04/21/2021 [facility] DATE CREATED AUTHOR AUTHOR'S ORGANIZ ATION 11/08/2021 [facility] DATE CREATED AUTHOR AUTHOR'S ORGANIZ ATION [facility]/20[facility] DATE CREATED AUTHOR AUTHOR'S ORGANIZ ATION 08/12/2023 [facility] [facility] FOR RECORDS PERTAINING TO PATIENTS WHO ARE OR HAVE BEEN ENROLLED IN A CHEMICAL DEPENDENCY/SUBSTANCEABUSE PROGRAM, SOME INFORMATION MAY BE OMITTED. This clinical summary was aggregated from multiple sources. Caution should be exercised in using it in the provision of clinical care. This summary normalizes information from multiple sources, and as a consequence, information in this document may materially change the coding, format and clinical context of patient data. In addition, data may be omitted in some cases. CLINICAL DECISIONS SHOULD BE BASED ON THE PRIMARY CLINICAL RECORDS. [facility] [employer], [facility]. provides no warranty or guarantee of the accuracy or completeness of information in this document.
== END 2023-10-04 15:48 | disposition home or self-care (01) ==
LOC: US 15:48
PROVIDERS: PCP Obstetrics & Gynecology; Visit Provider Obstetrics & Gynecology
DX: Z34.92 Encounter for supervision of normal pregnancy, unspecified, second trimester (principal); Z3A.18 18 weeks gestation of pregnancy; N92.6 Irregular menstruation, unspecified
CPT/HCPCS: 76815; 76816

== ENCOUNTER 2023-10-31 12:53 | Outpatient (OUT) | payer OTHER, SELFPAY | END 2023-10-31 12:54 | disposition home or self-care (01) | LOC: NOMS 12:54 | PROVIDERS: PCP Obstetrics & Gynecology; Visit Provider Obstetrics & Gynecology | DX: Z53.9 Procedure and treatment not carried out, unspecified reason (principal) ==

== ENCOUNTER 2023-10-31 14:13 | Outpatient (OUT) | payer OTHER, SELFPAY ==
[2023-10-31 14:45] LABS: Basophils Percent Auto 0.1 % (0.2-2.0); Eosinophils Absolute Auto 0.1 10^3/uL (0.0-0.7); Eosinophils Percent Auto 0.6 % (0.9-7.0); Hematocrit 35.7 % (36.0-48.0); Hemoglobin 11.6 g/dL (12.0-16.0); Immature Granulocytes Abs Auto 0.08 10^3/uL (0.00-0.03); Lymphocytes Absolute Auto 1.6 10^3/uL (1.2-3.8); Lymphocytes Percent Auto 19.8 % (20.5-60.0); Mean Corpuscular HGB Conc 32.5 g/dL (29.9-35.2); Mean Corpuscular Hemoglobin 29.3 pg (26.7-34.0); Mean Corpuscular Volume 90.2 fL (81.0-99.0); Mean Platelet Volume 10.2 fL (9.5-13.5); Monocytes Absolute Auto 0.5 10^3/uL (0.3-0.8); Monocytes Percent Auto 6.7 % (1.7-12.0); Neutrophils Absolute Auto 5.7 10^3/uL (1.4-6.5); Neutrophils Percent Auto 71.8 % (43.0-75.0); Platelet Count 230 10^3/uL (150-450); Red Blood Count 3.96 10^6/uL (4.20-5.40); Red Cell Distribution Width 14.2 % (11.0-15.0); White Blood Count 7.9 10^3/uL (4.0-11.0)
[2023-10-31 15:07] LABS: Estimated Average Glucose 91 mg/dL; Glycohemoglobin A1C 4.8 % (4.5-6.2)
[2023-11-01 06:10] LABS: HBsAg Screen Negative (Negative); HCV Ab Non Reactive (Non Reactive); HIV Ab/p24 Ag Screen Non Reactive (Non Reactive); Rubella Antibodies, IgG 2.29 index (Immune >0.99)
[2023-11-01 11:10] LABS: Rapid Plasma Reagin, Quant Non Reactive titer (NonRea<1:1)
== END 2023-10-31 14:14 | disposition home or self-care (01) ==
PROVIDERS: Visit Provider Obstetrics & Gynecology
DX: N92.6 Irregular menstruation, unspecified (principal)
CPT/HCPCS: 36415; 83036; 85025; 86592; 86762; 86803; 86850; 86900; 86901; 87086; 87340; 87389

== ENCOUNTER 2023-11-07 09:32 | Outpatient (OUT) | payer OTHER, SELFPAY ==
--- NOTE | 2023-11-07 09:34 | US_ITS ---
[address] [address] Patient Name: SHAQUILLE VIEYRA MRN: [id number] date: 2000 Sex: F Assigned Patient Location: [facility] Current Patient Location: [facility] Accession/Order Number: [id number] Exam Date: 11/07/2023 09:34 Report Date: 11/07/2023 13:25 At the request of: YASMINE VERGARA Procedure: US OB anatomy EXAMINATION: US OB anatomy, US OB cervical length HISTORY: ANATOMY COMPARISON: No relevant comparison available. TECHNIQUE: Transabdominal sonographic examination was performed for obstetrical and evaluation. FINDINGS: Number: 1 Heart Rate: 142 H.B. /min Amniotic Fluid Volume: Subjectively normal Placental Location: Posterior with lower margin 3.7 cm from os. Cervix Length: 4.3 cm, closed. ANATOMY: Normal Structures -cerebellum, choroid plexus, cisterna magna, lateral cerebral ventricles, orbits, midline falx, hard palate, four-chamber heart, RVOT, LVOT, stomach, kidneys, bladder, umbilical cord insertion into abdomen, three-vessel cord, cervical spine, thoracic spine, lumbar spine, sacral spine, right upper extremity, left upper extremity, right lower extremity, left lower extremity. SUBOPTIMALLY SEEN: None ABNORMALITIES: None BIOMETRY: BPD: 5.8 cm; 23 weeks 4 days; 82% HC: 21.5 cm; 23 weeks 4 days; 76% AC: 20.0 cm; 24 weeks 4 days; 93% FL: 4.3 cm; 24 weeks 1 day; 87% EFW:681 g; >97% FL/AC: 21.7 FL/BPD: 75.3 HC/AC: 1.08 GESTATIONAL AGE: Age by EDC: 22 weeks 4 days KEEGAN by EDC: 03/08/2024 Age by current US: 24 weeks 0 days KEEGAN by current US: 02/27/2024 US/US OB anatomy IMPRESSION: 1. Single live intrauterine with growth detailed above. 2. Estimated weight is greater than 97th percentile. Electronically authenticated by: KEEGAN HUMPHREY Date: 11/07/2023 13:25
--- NOTE | 2023-11-07 09:34 | US_ITS ---
[address] [address] Patient Name: SHAQUILLE VIEYRA MRN: [id number] date: 2000 Sex: F Assigned Patient Location: [facility] Current Patient Location: [facility] Accession/Order Number: [id number] Exam Date: 11/07/2023 09:34 Report Date: 11/07/2023 13:25 At the request of: YASMINE VERGARA Procedure: US OB cervical length EXAMINATION: US OB anatomy, US OB cervical length HISTORY: ANATOMY COMPARISON: No relevant comparison available. TECHNIQUE: Transabdominal sonographic examination was performed for obstetrical and evaluation. FINDINGS: Number: 1 Heart Rate: 142 H.B. /min Amniotic Fluid Volume: Subjectively normal Placental Location: Posterior with lower margin 3.7 cm from os. Cervix Length: 4.3 cm, closed. ANATOMY: Normal Structures -cerebellum, choroid plexus, cisterna magna, lateral cerebral ventricles, orbits, midline falx, hard palate, four-chamber heart, RVOT, LVOT, stomach, kidneys, bladder, umbilical cord insertion into abdomen, three-vessel cord, cervical spine, thoracic spine, lumbar spine, sacral spine, right upper extremity, left upper extremity, right lower extremity, left lower extremity. SUBOPTIMALLY SEEN: None ABNORMALITIES: None BIOMETRY: BPD: 5.8 cm; 23 weeks 4 days; 82% HC: 21.5 cm; 23 weeks 4 days; 76% AC: 20.0 cm; 24 weeks 4 days; 93% FL: 4.3 cm; 24 weeks 1 day; 87% EFW:681 g; >97% FL/AC: 21.7 FL/BPD: 75.3 HC/AC: 1.08 GESTATIONAL AGE: Age by EDC: 22 weeks 4 days KEEGAN by EDC: 03/08/2024 Age by current US: 24 weeks 0 days KEEGAN by current US: 02/27/2024 US/US OB cervical length IMPRESSION: 1. Single live intrauterine with growth detailed above. 2. Estimated weight is greater than 97th percentile. Electronically authenticated by: KEEGAN HUMPHREY Date: 11/07/2023 13:25
--- OUTSIDE RECORDS SUMMARY | 2023-11-07 09:44 | XMS_ITS | CCD ---
Author Organization [facility] Care Team Providers Care Peer Specialist Name Role Phone Ezequiel Melo Unavailable [facility], DR MIRANDA Primary Care Unavailable JAI ., DR UNDERWOOD Admitting Unavailable JAI ., DR UNDERWOOD Consulting Unavailable JAI ., DR UNDERWOOD Attending Unavailable [facility] MIR[facility]DA Primary Care Unavailable JAI ., DR UNDERWOOD Admitting Unavailable JAI ., DR UNDERWOOD Consulting Unavailable JAI ., DR UNDERWOOD Attending Unavailable JAIYASMINE Attending Unavailable Allergies Allergy Classification Reported Allergen(s) Allergy Type Date of Onset Reaction(s) Facility (2 sources) Sulfacetamide Drug Allergy [employer] [place] [employer] Other (1 source) Sulfonamides (Antibiotic) Drug allergy (disorder) [facility] Medications Current Medications Medication Drug [...] (1 source) Biguanide metFORMIN HCl No t-Taking Adrienne-28 (2 sources) Adrienne-28 Not-Ta yadira [place]-28 Active Problems Active Problems Problem Classification Problem [...] 21 to 29on 09-06-2022 . . Normal [facility] Comment on above: Performed By: #### [id number] #### [facility] [address] [address] [address] Dat Wesley Age Gdln ACOG Testing - Normal [facility] Comment on above: Performed By: #### 4 [id number] #### [facility] [address] [address] [address] Dat Wesley DIAGNOSIS: Comment Normal [facility] Comment on above: Result Comment: NEGA TIVE FOR INTRAEPITHELIAL LESION OR MALIGNANCY. Performed By: #### 4 [id number] #### [facility] [address] [place] [address] Dr. Dat Wesley Methodology: Comment [facility] Comment on above: Result Comment: This liquid based ThinPrep(R) pap test was screened with the use of an image guided system. Performed By: #### 4 [id number] #### [facility] [address] [place] [address] Dr. Dat Wesley Note: Comment Normal [facility] Comment on above: Result Comment: The Pap smear is a screening test designed to aid in the detection of premalignant and malignant conditions of the uterine cervix. It is not a diagnostic procedure and should not be used as the sole means of detecting cervical cancer. Both false-positive and false-negative reports do occur. . Performed By: #### 4 [id number] #### [facility] [address] [place] [address] Dr. Dat Wesley Performed by: Comment Normal [facility] Comment on above: Result Comment: Singh Sanders [employer] Mixer Operator (ASCP) Performed By: #### 4 [id number] #### [facility] [address] [place] [address] Dr. Dat Wesley Reflex Criteria: Comment [facility] Comment on above: Result Comment: The HPV DNA reflex criteria were not met with this specimen result therefore, no HPV testing was performed. . Performed By: #### 4 [id number] #### [facility] [address] [place] [address] Dr. Dat Wesley Specimen adequacy: Comment Normal [facility] Comment on above: Result Comment: Sati sfactory for evaluation. Endocervical and/or squamous metaplastic cells (endocervical component) are present. Performed By: #### 4 [id number] #### [facility] [address] [place] [address] Dr. Dat Wesley HCG,Urineon 11-03-2021 Beta HCG ( test) Ql (U) Negative Normal [facility] Comment on above: Result Comment: PERF ORMED BY: [facility] [address] [place] [address] PATHOLOGIST MECHANIC'S ASSISTANT SULTANA PETE M.D. Performed By: #### [facility] #### [facility] [address] [id number] [facility] 11-03-2021 L - -------- Specimen: [id number] Received: 11/03/21 Status: AYDIN Johnson Num: [id number] Spec Type: Surgical Subm Dr: Ezequiel Melo MD Tissues: A Small Intestine - Biopsy/Polyp (SMALL BOWEL) Procedures: HE Stain/2, Gross/Micro L4 -------- Patient Age/Sex Location Account Attending Physician -------- Leigh Singh [id number] Ezequiel Melo MD -------- SPEC NUM: [id number] RECD: 11/03/21 STATUS: AYDIN ALVAREZElaine NUM: [id number] PAPI: 11/03/[address] [facility] [address]: Ezequiel Melo MD ENTERED: 11/03/[address] [facility] [address]: SPEC TYPE: Surgical DEPT: S ORDERED: [...] is performed. This case is interpreted at [place], [place] -------- Specimen: Received: 11/03/21 Status: AYDIN Alex Num: [id number] Spec Type: Surgical Subm Dr: Ezequiel Melo MD Tissues: A Small Intestine - Biopsy/Polyp (SMALL BOWEL) Procedures: HE Stain/2, Gross/Micro L4 -------- Patient: Leigh Singh [id number] (Continued) -------- Specimen: Received: 11/03/21 (Continued) Signed (signature on file) Gabe Ellis MD 11/06/21 1703 -------- Specimen: Received: 11/03/21 Status: AYDIN Alex Num: [id number] Spec Type: Surgical Subm Dr: Ezequiel Melo MD Tissues: A Small Intestine - Biopsy/Polyp (SMALL BOWEL) Procedures: HE Stain/2, Gross/Micro L4 -------- Patient: Leigh Singh [id number] (Continued) -------- Specimen: Received: 11/03/21 (Continued) CPT Codes 59248 -------- -------- Specimen: Received: 11/03/21 Status: AYDIN Alvarezelaine Num: [id number] Spec Type: Surgical Subm Dr: Ezequiel Melo MD Tissues: A Small Intestine - Biopsy/Polyp (SMALL BOWEL) Procedures: HE Stain/2, Gross/Micro L4 -------- Patient: JuanshaunaLeigh [id number] (Continued) -------- Signed (signature on file) Gabe Ellis MD 11/06/[address] [facility] SARS-CoV-2 (COVID-19) RNA OZZIE+probe Ql (Unsp spec) Negative Normal Negative [facility] Comment on above: Order Comment: Healt hcare Worker?: N Result Comment: Testing for SARS-CoV-2 by RT-PCR This test was developed and its performance characteristics determined by [employer] ([employer]) and validated at the [facility]. This test has not been FDA cleared [...] is terminated or revoked sooner. PERFORMED BY: [place] [address] PATHOLOGIST MECHANIC'S ASSISTANT SULTANA PETE M.D. Performed By: #### C OVID 19 [facility] #### [address] Coding Summaryon 04-19-2021 Coding Summary HTMLBase 64 FcvdgnayOBt4rCv+PGhlY WQ+IP9KUWYgK81wjDXsbA 1TQ5rSGO7VMZYKPZYEFW6 PAB3zyAV8SSpgW3GbrrBk HnzdwZAhAP03NIs7JZE6s NmqNOtweQ6umYUkS9z2Ag SeRY02uE86FMbcGENbDtS 3LjZpbjsgbWFy U6ruNgJspYQzZsa+PHRhY mxlIHdpZHRoPScxMDAlJy TkyLxjKQ7mZu1qTWDpEXL vbGxhcHNlOiBj i1jfBQIsKInaSE0vzVggF 1QwzMO1FPVbb2j4Uo90lM I+BWLzCDA0zMlwGXmmw13 7CgDym5bxCKQ5 cLZoXWqrELV2C98xp5C1Z REuNYMjLSU7aNS0pL0vcW hbuswfU1UhwQMvGhG5VCM 6lGDvwR4szSav fdtjeF2aFbs+L29QCU6QK YADXY8FJct7D8YmGpemyT I+VJ57LZMuDM47dYQilMB ts1npnDh4WbHf SIIwECP9qSqcXZbye1FiE FSqW15jnSTcd6X9NOOiqQ ecnKNzAyEagIV5eL3eFEl hjjwdx2dxuoze Mfzzd9pxoh75nU67R28nN BzfGGJaXEM8ZYYpOPYbbA tspt8xyY8cGl4+EBisu3v gm3jzeCx2NzXe HNCrugZrsUosSFX7w5SjM o83E1MmgWtvp2EdKyt5kq 04gQMxg8R4qFZ1VObdJOI jhU9pLLmqVeJ6 VCDjEsXehT10tFShYCvsW k1gsDtppHzlQQ9yILKcbv xeCGZuoA4jUNPgbUPlvWw oAG7mNRQkuqgp t322JzXhYTG2YNUdrHQbS 0VobF7lZvLqUVJkNUNiV8 OnmHVtTDjjP684GDqpKuR 8ZMWturCrY5Mq JFIafFjhFvT9o1E7Dq1Be 1QobduyOAG4CGjrXSRwZk ZoSvArQuX8W1CgEqf3SPW fgOadRC7bE5Ej YZLpagcuzgrlaXM4GDVdX CDiuX64kVYlUJagFy2vj8 Q7e074TXKnNJFpuI75Cr1 udDogMTBwdCBU tK1oetzks9juqjusEyXsZ NWrDXp3FJf7OCXmfRzcDr WkNGP5BgJ7PIH8iHCdeJ2 rvDxezyjniR0z Oyc+U23xxW9qISZ7RQN6u xcwFWAknbIwDO67SF04D2 RyPjwvdGFibGU+PGRpdiB elDpyOJ4gBiTl m8lji0MaXVmsO0VsDAExW SoeGkl7VOHmLLZ0pED6rH 6vYBYgFNzge7X4uPS5S2F hnoKkxq5cq9ls XDXgLHbmJ70qyYOtm2N3D XTfvNV5GFPwsRoeCuZqjR 93Oyc+PVYsxLmqb8BoGll rx6fpd0gfxKq4 LiYlIYSauxDtaLcaBYV7y 2NoOy72M89gGGkjIFYaTA YtLJBpOKJtgFwzpc8bpS9 wIi8+PGNvbCB3 aTR9cX5tHXJrOmI0HFuxC 305EaQokHObPrkwd2bul4 oxsPt9IcFuRWUuikDhhTv mHHX6q3QnXj73 C95eHPfvYPNaEXVfGAAsX FTgcRuhcc0mrM2hGx3+PC 1ur3mhif06eE60gAC+PHR tMLZ6rIyhATnm THHuxK9dKPpfOkS3AXXxJ kDoxX27yITiUYdzTz1jzD hlzLusTB7wRSFqnhixx40 4AaIdu4yoKRWx yLTxGFfmOTV7V22ha5N3X GJqOZFeGDQ5nYL0hF5dqW lnbjogbGVmdDsgdmVydGl lXDbmQXyoP362 IHRvcDsnPlBhdGllbnQgT pXyJRg7M7EkBdv0CNByyD rvJB9zxRXnWUgzZb0abXv xoLqqHS6yOWLk xdrkp876JoLim7smESChb TLdXJvzYDR1F24ph8B5UN IqOWFfXVJ6pQK0aM2cxFh nbjogbGVmdDsg mzGnxEwwYBwwMDlwR853Y HRvcDsnPkJpcnRoIERhdG K7UG51GO25bZBgx5H3tCS 2N4GuPRLmvsxb sduqmSH6BPTlXFGyoT40K t0ypGevJz7dUREbKYC6XB JwlYHfY5TxwF4hQgFwJFG fLUBuN2NgcGEw SAyoT142SRqrLmC9MVIgp cMdS5PaKJVbzOjeGjV2o3 F7Av5CF4E2PV60TG55bZB hp6Q5yXZ2Q0Kd KDRkixesippulSY9YFIjB FNihH90Yk6gfWzcSu9yGV AkYPU8GYLsdKEhL5RxhS1 yOiAjMDAwMDAw Y4PdzAJlXZyqT106BMbpD yT5GKJuydWjR0UcQVSthT ubAeI8q6U6Yv9SGIb4OZ0 0OB96lKFqm9A3 oZR5U8GmUCFsotgnuuflu RI5HMYvQVBjcF32Se6rqB ecIn9iUUHoNWW5HDZgkBY iH4XjsV8cXnPs WSThMITvA5UcpIVrCXajT 912ISovQtM6YZLfglGuU3 MwFDAgvLmvYhL7t8R6Oh8 CIUUsRC60INB4 nLV7YC41KF31G9LbZwabq GFibGU+PHRhYmxlIHdpZH RoPScxMDAlJyBzdHlsZT0 pTs9tSVIyVCSj eJmytICgWnHkk9uwEZSyS CcgUS4nzMiwV7IbcFK5ZY Nxr1r9Yh87W29iP3BkmGS +OPXodTN7mTP3 wC9xCpVlHmI7GCocT298Z kAccTZtUqpsk7smr9hxgZ d4SoE9HJUmdgPnlXovSQY 0l8LvOl41J56b IHdpZHRoPSIxNSUiIHZhb Mkoqr0huO0fYb1+PGNvbC W7eLI8iP3mJlJmYjP4BAl kF568LbDdgMIs Qwisc7ggi8kvdRr1SnYzA MHphsGfiMnuXKL1l0SsQy 37L1WxgZwgd7LpWzj6zn2 1zTUzz3R4nMZ5 D5TjHXHqqdwwfAPheEfeD U1vMEMazzuyNLAksN7tEB GzL9m0XkQfLqN4OTqpR1K useC7AXVxjRKx EJxiYVB3F48th6O9PIJwY DGmESN0cRY7wI1llRsbig ogbGVmdDsgdmVydGljYWw nDDqbW590PBJf qOppTIHyiT4sLNUeiRAcv PbeNT7rLUOsvyafGkQXGA REWSwgSEFOTkFIIEdSQUN RPB70HT17fAXu r4P2jMQ5R5PeNIJqynbcx deuxHK0WZDsHLUmiU31tH MpGGihXs6zk0A6o405ALG jRUYxtR21Pb2f qVslBEOteCXPnV4wljtyj 6llsudvNuVeJBFlETe5BQ c6MOUzzRwbRlCoVNX2TwB 8MAZ8uEBxeB0y xZgklxpgzI2sQor+MDMvM DkvMjAwMTwvdGQ+PHRkIH Q3tNiaZKlrMJXfqV7tRHB eP9a6EnEbEiF1 XXkrX0KoPQAvesoyUp01x U1qRkLvWtS8WMgiP6Xnzg W2WYIeoUPfZXqjWFK3D06 od9U4ORNiKVDh WTS3aCL0fK0zgRxebqaxd GVmdDsgdmVydGljYWwtYW btX785BLWjzXelSqBjYRt cCPRwFU93MJ54 vEUwg6Y4eDM7S4RpDXTsj adyxgdzxCP3LNRiGYOduY 68zACzNTslWg5mj5M9g64 7ICOaDXTpvK37 Gx7hjFckYWIoqRRJxV5jx cbxs6ajurfkQwWnPUQlVR l4INa7LLIapUogIoLiKIO 0YfL4AYD3yWSy qT3zdDfwrgsxmD8kTfd+R tDUFSjPYA79YF60mQIoa8 S8kHH0R8QjWJNksfcxpdy aaCV7SCXqYXBm uG83dOJpRNvvVc6vw5J1z 390OEVbASKaxV13La7zgH coSGLhvAUGzC9rfqqoz4n vcjogIzAwMDAw UWk6LBj3VZUwzYqnLeHvG TR5NmK2PPT9lPTgnL0weJ dkzdffnX4wOsw+J8Q6E2V kPjwvdHI+PC90 LYGsGE09hAEjlXZor6bxc An6WlStOTSrGCC8uAovAR fbn8CdEPSqX87rgUGgv2N 6IGNvbGxhcHNl DzMjaPS4mA9nJWrwisiyf 1hoapjiZwpwz7deby56vK 18A16hGHghXBQxBAUyMNS mOGEktHkytx8e nC5sSv0+QNIemPE5bXK8n Y1yAhWqMhH0LAsuY571Mc HblWSyFiizf4rwg6yfuIt 9IjIwJSIgdmFs fVjuBGR2d2FjIf17M31oQ HdpZHRoPSIyMCUiIHZhbG rwtt3alY0yIe9+ZO7jd2i nno85eJ48tIJ+ VIDkEQS7tFtnNMahGJPlt R4aZIpkRfS5DPPpHhQxvO 61sOWqKFkeFs6gxKgpyLp dGD7gELSshigr g718IwFxb1mxVRHlnEOqX GgkXIH4W33td2A9BYBrLM QoQYO0vUW3dL7hzDgzgbt gbGVmdDsgdmVy tWgvMHkgQAsvO986HOGig PjcWmXozDJuE0bvfnOBZX 1lOjwvdGQ+YHMmCZR1xGa mOAgzCBUmxG4r ROQeD8p9OyBxDbT9YUczO 6KnxpB1ZGKeaCQcCKRcrX CVpQ4imhrvt1mcnoyvZvW pXGVnQUn7BQb3 XNQvpUfqBhCiTWW4PmN9B MS5tZUhfL9etYroztlemA 9wOyc+RklOOjwvdGQ+PHR nGES4gSeaFBll NQJlcW3oWAWlD0o7GgNxR aT1GMsuZ9ComsT9NRInfK TyMQMwdHZCfE5cufryo9b vcjogIzAwMDAw ASu7XMf7VLMjtOnoYfEqE LU7YjQ8FOI0bMPtkF6xvE pkllhoaC8sGqb+TVJOOjw vdGQ+PHRkIHN0 yNyeIAfjWLXcuN1bXJNqL 8m5YiBvNyR5YRpxV4Pzjp N5JCTulIFyXWLuuKSYfZ3 fdjafo0jsppvb YzZmULZeXRn0YOz3EJXyd LcgKdBeDYX6XwG1WTY4rR WouR8dhKkazcnjyU9wRay +XAE1YDC4US08 GC23M6TeVobutGNidOD+P HRhYmxlIHdpZHRoPScxMD BkHsZkgQsjAT2uPo6zVZA yLWNvbGxhcHNl Oi[employer] (more content not included)... [facility] Note- Provideron 04-06-2021 Urgent Care [...] and Plan Diagnosis Sprain of left foot ([id number] S93.602A, Discharge, Medical) Plan Condition: Stable. Disposition: [...] she can arrange follow-up as needed. Normal [facility] ED Clinical Summaryon 2020 ED Clinical Summary [facility] ? Urgent Care [address] [place], [place] [id number] Clinical Summary PERSON INFORMATION Name: LEIGH MONTOYA Age: 20 Years Sex: FEMALE : 2000 MRN: Acct#: Visit Reason: UC - Ankle/Foot/Toe Pain or Swelling; LEFT FOOT PAIN Arrival: 04/05/2021 16:12:07 Discharge: 04/05/2021 17:50:00 LOS: 000 01:38 Check In: 04/05/2021 16:12:07 Checkout: 04/05/2021 17:50:00 Address: [address] [facility] [id number] PCP: Flex Wang DO PROVIDER INFORMATION Provider Role Assigned Unassigned Monica Dunn TOWEL FOLDER Nurse 04/05/2021 16:14:32 Paul Atkins-C ED PA 04/05/2021 16:15:50 VITALS INFORMATION Vital Sign Triage Latest Temperature Tympanic Temperature Temporal Artery Pulse Rate O2 Sat 99 % 99 % Respiratory Rate Blood Pressure /68 mmHg /68 mmHg MEDICAL INFORMATION Medications Given: Allergy Information: sulfamethoxazole PHYSICIAN DOCUMENTATION DISCHARGE INFORMATION: Discharge Disposition: Home Discharge Location: Home PATIENT EDUCATION INFORMATION Instructions: Foot Sprain Follow-Up: With: Address: When: JEFF Bernabe [employer] [address] [place] [id number] Business (1) , only if needed With: Address: When: Flex Wang [address] [facility] [address] [place], [place] [id number] Business (1) Within 3 to 5 days DIAGNOSIS: Sprain of left foot Patient Understands: Yes - Patient/family/caregi nela verbalizes understanding of instructions given Comment: [facility] ED Patient Summaryon 021 ED Patient Summary [facility] ? Urgent Care [address] [place], [place] [id number] PATIENT DISCHARGE INSTRUCTIONS Patient Information Name: LEIGH MONTOYA Age: 20 Years Date of : 2000 Reason For Visit: UC - Ankle/Foot/Toe Pain or Swelling; LEFT FOOT PAIN Arrival Time: 04/05/2021 16:12:07 Primary Care Physician: Flex Wang DO Attending Physician: Nirav Nunez Comment: Patient Education With: Address: When: JEFF Bernabe [employer] [address] [place] [phone] Business (1) , only if needed With: Address: When: Flex Wang [address] [facility] [place] [phone] Business (1) Within 3 to 5 days [...] ? As (more content not included)... Normal [facility] Urgent Care [place] 021 Urgent Care Record [facility] ? Urgent Care [address] [place], [place] [id number] PATIENT DISCHARGE INSTRUCTIONS Patient Information Name: LEIGH MONTOYA Age: 20 Years Date of : 2000 Reason For Visit: UC - Ankle/Foot/Toe Pain or Swelling; LEFT FOOT PAIN Arrival Time: 04/05/2021 16:12:07 Primary Care Physician: Flex Wang DO Attending Physician: Nirav Nunez Comment: Visit Diagnosis: Diagnoses This Visit Sprain of left foot (S93.602A) UC - Ankle/Foot/Toe Pain or Swelling ([id number]) If you received any narcotics, sedation, or [...] documents With: Address: When: JEFF JESUS [address] [address] Business (1) , only if needed With: Address: When: Flex Wang [address] [facility], [place] [address] Business (1) Within 3 to 5 days Medication Information: The exam and treatment you received today in the [facility] were for an urgent problem and are not intended as complete care. It is important for you to follow up with a doctor, nurse practitioner, or physician?s engineer assistant for ongoing care. If your symptoms [...] so we can reach you if necessary. [facility] has provided you with a complete list of medications post discharge. Please inform your art glass setter/provider of your visit and for further instruction [...] are no br (more content not included)... [facility] XR Foot Complete Lefton 03-20 XR Foot [...] Signature): Vishal Fernandez 04/06/21 8:27 am Technologist: [facility] Coding Summaryon 08-01-2020 Coding Summary HTMLBase 64 QchlmubgPJx4eCp+PGhlY WQ+JE5JXPScU77feRTnsY 2UY4jDOP0RGXSSJJYPAS7 AKJ8sgEP1WGwvE1WxttMk NfpfyIPvKT43LCj0NTL4y NzwNEbllS2scXWoW7u0En XcEG64yW93CGdiLBFnJqB 3LjZpbjsgbWFy J4wrWwCmfGMxVgb+PHRhY mxlIHdpZHRoPScxMDAlJy BozOhcKH7aAo6vTXBhTQV vbGxhcHNlOiBj a0leMEGaECmrHZ9rqWjcE 1XonHD6VAWqy9d3Tk26lR I+WWXxSLM6uYbcAQiyz56 5KrTjd7saPVI7 tKEgPJxlRDZ0E65jd8T8M RJeULQuJJO9hEV1wC8raA vopdxuY7BirKDaLhF2JUU 4eSIkuD6rqJgx fxlirY4tFgn+T16JVA1JZ OLFDK1NQvt0C5CqCeibtE I+OY42NRNbDU96kXOzmUX fm3phsVn1EaRm STRzXCV4uRhhIAxzu4PfD GSjF64mdVAry6P3AHUxlM juoUCiAwZahIF7aZ3wAQy huyuce7gyipbq Jsnzq8arsv39eO35E11uA MktWRGaLVD7OVOxCPYkzZ gyrg1dxJ8eXa7+LXlyl2z tr5khqRc5XkCq NCNyueZriCcuWAT2s9OzD z72H0ZbsLdjo1PeYxr8kk 26oMIkx5B2zHF6FRtnRFT gmA0wISszGzX4 EXOeDzGykO72cAOyVJtxP i3gmOawaYxuFP4gDGAwco zsSHLcoF8kELBthHKisFe oJS6eZIYwwzgz h684ItPvIEV4UWCsxGEaY 1GjeU5yBoJgPPMbFWTbF9 PlhMKvBKomE294SBjyRsJ 3IIDmukQpB1Kh RBEefMvcMhB7f4J9Eh7Rh 7IjgrpsNNL0LHplYRGrYz K3UsLgVcX8M6LfJfc1FBI foBtqUD9pY7Ma LUIeramesdctwGF1MAZyH GTesN00vWSxJJflZg7rt7 T8o404IQPkQBZouC74Xf5 udDogMTBwdCBU gH8xigmoi0wdmwiiSqQoA HZvDUo4BLo3FGVsqLdaWb PgEWX2EuU2UVT6iFVhnJ6 avXfcxhmfaE0z Oyc+P08swR0pKGG1IGS5t dyxDGVlbpIkTU85CC16T1 RyPjwvdGFibGU+PGRpdiB irLupDN2iVeGi l2nin3CxRTxrZ0EaGMNlH SwmUpj5QLFkPGB6xMB8cD 6uZVUzCQxll7A3vCX7M1B vrgFanf1kg6pp OSKuRZpyK14yrRMcb2S1G UIxrAQ1APWmyStxDqKvuS 93Oyc+QLWhlOsdw6NxQxv oh0qku1yrjOp4 YmQbSVLupwAodJghBAM3i 1CzOt08I19qIGmtQVLmCU ApCMQaUPRglWnati5pgK2 wIi8+PGNvbCB3 qAT2tW8uSSBxZoM8KZglU 381CfZxtIWgVxsek9nne5 atuEb4NkJgZKOszxYroZf oOJB5f9QtAv63 S74qMRqbGYDbRKRgJOBuE ASygBfaoz6rrH2zMc3+PC 6po5qsud57zN95wAK+PHR sHTA1zSwtKIns ODRzfI9yDXdfAlX8XFPtZ rRjrC28lPHoLJjuSn3mzK kadWhzMO4pVJRqkjbpg74 1LyQwg0srOYRg gLCrRRemNQP5S98ib7U6T HIhQNPzUUD4hLC3kF0vtP lnbjogbGVmdDsgdmVydGl uIGsrTXdrT603 IHRvcDsnPlBhdGllbnQgT jSkJMg6M5KcGpv5ZDRqaL pzTC6eaBOoQWklGf1kjQt cqHozNS9hLXRp aauxh617VjMrb0hsERRpy UFmVBddTCA6E86ug6Q2QI LbBUYyDJM2nSS0gP3xoHi nbjogbGVmdDsg geWdfVuaWNbqBCvsR302A HRvcDsnPkJpcnRoIERhdG J0WG26WA16cKUll1F0rMD 1K8VnNZSxvinz pnxeeDY6HDMrEPWejR89A j5joGkvEn7pCLObZEX5LM ExwIQaY2HqqB9gWfYrCXU bKTGdH2EklRQp OBnzL297DBhlGkB0YGZvm pXaX1PlROOnbZlhGqE0l6 R4Ja5CZ4L8MM85HW33kLB yi5C9cMM7O6Gp SKZuwrzsnmfuvTN1YJPvH NItkA16Qa8alJfjEg2lVA WtAOT7MMIppZCnV9MrxB9 yOiAjMDAwMDAw I1ZgcWPpJMxiY998XXdrX vP8RBDjtsVdO1MoSYSdeJ daCbT3e5S7Rm2OJOf2XB2 6AO19mHGxu8C0 wBA5W9EkCOAeitzbjehdw NV1TQSdNZFzvC71Mm4xjW scQh0iOFHfSED4DFQtjKH aS4MwxO0mAjKy LHGkUAOtZ7VsgXVtZGulO 041HNicSaB7IKIrcyWkO8 XyPQWfoNkvHuV2i7E1Gt6 HXVSqBC93IJA0 gFT8EO63AZ48J4QrPvmuu GFibGU+PHRhYmxlIHdpZH RoPScxMDAlJyBzdHlsZT0 rKb1pTNNjREEp mLmsuRAfIqHkk7ozJSRmV YrmUB2ixPmqB4NicSA2PP Xnu5h2Du85D26uN9YtcEV +VDMrmHK0kRT9 aK5yAcJcUuF2LMdvQ466E pFmbXSqKhfav3ivd0umbK n7MtM2GDTuplEylOmiIST 1v7HnDu98D41t IHdpZHRoPSIxNSUiIHZhb Rnnie1hvU4nVy4+PGNvbC A8vIS2qM3jKaAwOlU9XCq vY075LkYwwRKa Dnckv8aqp1gmuBs8ZxCcF KNqjkRryQruFCA4u5IsRh 12J9HqjGdsx5XiGqy1hy7 2mXCxy2B3wDX5 Y5WrOFVioaztjZQhrRjtN G9gYLXqztaoJXZeiA8iRN TpJ9c4RgFkRwU3EUxiE0Z iztB1UWIpzLGp LMdfETU3V18ey7I4DQRcK UMkRSS8yXS1sR9rvSyhnu ogbGVmdDsgdmVydGljYWw qGXqwV477KCVb yUoaWAZlxS2aKNWiyMXqq LmjYY5eODBmgumlLuJAJN REWSwgSEFOTkFIIEdSQUN QUK77QA20lMSe q2I9sNL0S3QqCATrilzbf foazDN8FEFxBBVjyR87sU GyBVedFf4zv5U7s091EIS eSFJewY97Hb3h vEbrKLWstMTGnJ4qqfpeq 7syeaveJaIiUSFxZId4JR w9DWYvyOlsWrQxRPT4LqR 7WBA9wROhhI7d vYvdrahueU4eQbu+MDMvM DkvMjAwMTwvdGQ+PHRkIH G7wHukVFczPDBqkM7aUDN jM2v8VeOfAiD9 LGjdG1WjISOvdjzgKn27c R8dTtQwLcD9WNvxG2Zmuh D9RVWcwZBdIYzmORL5L50 fx0X9PXSaURIr IEJ8bZO3yB1zdTwfxexpz GVmdDsgdmVydGljYWwtYW hbF039BKVqmWbwGwArUNg eOVOaLM80QE18 gQYvp3F3cJS1M4SnOIWip tqmhocfqTI6JCKhQGIrwF 08gZGvJAgsPy7xv2R3p41 9WVZfOZOvjJ87 Wx5yiGlrPKYmhSBVeF3fu mszp1fuoowiMyDpBAUoXK d1AZc5ZZEjjKubXjKcMDW 5UfV3QNO0dEZd kN8tgIxxxfsbxO0mSof+R mEQXAzJZC16GF71mTPwi2 S0vWZ4M6RmEAHhpbchjce scCO6AYSqKAAs fU24jVNcOLpxKa1uk1X1l 208JGIyEXKvqG92Az3imA mqGBNcbTQQsX2navvxf2c vcjogIzAwMDAw NXo7GNa3VPHniYgeRuWaH EY7JsT2PLM3nQXzsK0ckI syiuvenY3vCvd+R9C2E3L kPjwvdHI+PC90 AKNgPP58xZXnfQHvn7wkg Rk2QeEvSFUnTZQ4dVxzFE xar1UwEATjY20kxMNyi6N 6IGNvbGxhcHNl JmTenQP7pU6rRHgwprxme 0wraurzCogje2qkob78cV 20X95bIDhlZDGeGLGcECF pITHpdXzmlg4l gO8sHl5+YNXkaSO0tIB1y W9sXdGzXyV2RKvdR395Fm ThlVSaWeywq7wsm8aayXd 9IjIwJSIgdmFs bHvyXUN7b6IwBr44S00tG HdpZHRoPSIyMCUiIHZhbG pnvf9jkW4yRg1+HU5ie3n aff97sF12lVZ+ HYLpLEE9rRysQZomLEXla B9yXWfyGeD8QQNlLeMgjW 79oGLvKTraPv8leJmsyNo qZK2rVZNatsfu o184UaYnp9ypSWMelYGxY IvdCDL5E56cc2V9IZEjLW KkRQT1nFL5gP9rvNinkwt gbGVmdDsgdmVy aUemMDuvIAgjR355VOWbg AseNeZsdQLwX2nfifQRCP 1lOjwvdGQ+RMSbUSH6tVt kVNyoTIDduD5u QUMrP6p1JxNkGuJ1QDvaY 9TfrfJ7AMFdcBRaUFPqfF RGcG0ivydrk5sztfxvQzG tSQUkUZd4XCs3 DQLxdLweZjDsVJI6UhU3O IW6bRXtqT4juLnkgzsqdO 9wOyc+RklOOjwvdGQ+PHR xBLU6nSznXRqb IIOcsR2lUBAsC2h6LqBiG mP6IQsfI5SrsnZ2JSNelT AqFNHiuLTXxZ6tznoua1l vcjogIzAwMDAw WVa9QNx5VOSeqUvyGeWdH BW0YeG6FSW0oBJvsV7kkA lxqgjquY1dWrr+TVJOOjw vdGQ+PHRkIHN0 vVndKXdbIHCuwB2xLKKyM 0l8GvZuTkG5JUzuR8Kemc U5YZAjoBHoBIDhdJFOwB6 hxdgyv2kytxgn HpXrJLVfKHr0UGo2RMLgl UesLfGzZOB5FcE0HZI2gR FpaQ5cqRvuorhmsX7nOcl +EBD6ZZT0TY98 UU57R4OlAvmniUJurRK+P HRhYmxlIHdpZHRoPScxMD ZiRwLgcRkiQA3eHz7yMJM yLWNvbGxhcHNl OiB (more content not included)... Normal [facility] C Throaton 07-31-2020 C Throat Ordered by Discern. Normal throat regi isolated No pathogens isolated Normal [facility] Comment on above: Performed By: #### [id number] ####[facility] (DEFAULT)[address] [place] [address] ED Clinical Summaryon 2020 ED Clinical Summary [facility] ? Urgent Care [address] [place] [id number] Clinical Summary PERSON INFORMATION Name: LEIGH MONTOYA Age: 20 Years Sex: FEMALE : 2000 MRN: Acct#: Visit Reason: UC - Sore Throat; THROAT PAIN Arrival: 07/29/2020 09:44:22 Discharge: 07/29/2020 10:23:00 LOS: 000 00:39 Check In: 07/29/2020 09:44:22 Checkout: 07/29/2020 10:23:00 Address: [address] [place] [address] PCP: Flex Wang DO PROVIDER INFORMATION Provider [...] Negative . Impression and Plan Diagnosis Pharyngitis (VHU40-OP J02.9, Discharge, Medical) Plan Condition: Stable. Disposition: Discharged: Time 07/29/2020 10:17:00 (more content not included)... Normal [facility] ED Note - Provideron 021 [...] Negative . Impression and Plan Diagnosis Pharyngitis ([id number]-XT J02.9, Discharge, Medical) Plan Condition: Stable. Disposition: Discharged: Time 07/29/2020 10:17:00, to home. Patient was given the following educational materials: Pharyngitis, Pjkk-bi-Xsll, Pharyngitis, Mpgw-nt-Wpzy. Follow up with: Flex Wang Within 2 [...] 07/29/2020 10:20 EST] Patricia Meeks PA-C Normal [facility] ED Patient Summaryon 021 ED Patient Summary [facility] ? Urgent Care [address] [place] [id number] PATIENT DISCHARGE INSTRUCTIONS Patient Information Name: LEIGH MONTOYA Age: 20 Years Date of : 2000 Reason For Visit: UC - Sore Throat; THROAT PAIN Arrival Time: 07/29/2020 09:44:22 Primary Care Physician: Flex Wang DO Attending Physician: Patricia Meeks PA-C Comment: Patient Education With: Address: When: Flex Felipe [address] [facility] [facility], [place] [address] Business (1) Within 2 to 4 days [...] Follow these instructions at home: ? Take riga-chh-xqoiyyd and prescription medicines only as told by [...] 10/22/2008 Document Revised: 04/18/2018 Document Reviewed: 06/11/2017 [employer] Patient Education ? 2020 [employer]. Medication Information: The exam and treatment you received today in the [facility] were for an urgent problem and are not intended as complete care. It is important for you to follow up with a doctor, nurse practitioner, or physician?s engineer assistant for ongoing care. If your symptoms [...] so we can reach you if necessary. [facility] Emergency Department has provided you with a complete list of medications post discharge. 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 Normal [facility] Strep Aon 07-29-2020 Strep procedure control Pass Normal [facility] Comment on above: Performed By: #### [id number] ####[facility] (DEFAULT)[address] [place] [address] 31552 Streptococcus A Negative Normal Negative [facility] Comment on above: Performed By: #### 6 [id number] ####[facility] (DEFAULT)[address] [place] [address] 74691 Urgent Care [facility] 021 Urgent Care Record [facility] ? Urgent Care [address] [place] [address] 43452 PATIENT DISCHARGE INSTRUCTIONS Patient Information Name: LEIGH MONTOYA Age: 20 Years Date of : 2000 Reason For Visit: UC - Sore Throat; THROAT PAIN Arrival Time: 07/29/2020 09:44:22 Primary Care Physician: Flex Wang DO Attending Physician: Patricia Meeks PA-C Comment: Visit Diagnosis: Diagnoses This Visit Pharyngitis (J02.9) UC - Sore Throat ([id number]) If you received any narcotics, sedation, or [...] With: Address: When: Flex Wang [address] [facility], [place] [address] Business (1) Within 2 to 4 days [...] and treatment you received today in the [facility] were for an urgent problem and are not intended as complete care. It is important for you to follow up with a doctor, nurse practitioner, or physician?s engineer assistant for ongoing care. If your symptoms [...] so we can reach you if necessary. [facility] Care has provided you with a complete list of medications post discharge. Please inform your art glass setter/provider of your visit and for further instruction [...] Follow these instructions at home: ? Take ogod-mdx-emisuhh and prescription medicines only as told by [...] Get help righ (more content not included)... [facility] Coding Summaryon 06-27-2020 Coding Summary CODING DATE: 06/27/2020 [facility] STATUS: Home PAYOR: Commercial Insurance [...] Nano Padilla Date Saved: 06/27/2020 12:37 pm [facility] ED Clinical Summaryon 2020 ED Clinical Summary [facility] ? Urgent Care [address] [place] [address] 62593 Clinical Summary PERSON INFORMATION Name: LEIGH MONTOYA Age: 19 Years Sex: FEMALE : 2000 MRN: Acct#: Visit Reason: UC - Ear Pain; UC - Ear Pain; RIGHT EAR PAIN Arrival: 06/18/2020 15:00:59 Discharge: 06/18/2020 15:27:00 LOS: 000 00:27 Check In: 06/18/2020 15:00:59 Checkout: 06/18/2020 15:27:00 Address: [address] [place] [id number] PCP: Flex Wang DO PROVIDER INFORMATION Provider Role Assigned Unassigned Monica Dunn TOWEL FOLDER Nurse 06/18/2020 15:03:15 Spasic PA, Marv ED PA 06/18/2020 15:03:24 VITALS INFORMATION Vital Sign Triage Latest Temperature Tympanic Temperature Temporal Artery Pulse Rate O2 Sat 98 % 98 % Respiratory Rate Blood Pressure /78 mmHg /78 mmHg MEDICAL INFORMATION Medications Given: Allergy Information: sulfamethoxazole; ibuprofen PHYSICIAN DOCUMENTATION DISCHARGE INFORMATION: Discharge Disposition: Home Discharge Location: Home PATIENT EDUCATION INFORMATION Instructions: Otitis Media, Adult, Hikv-qs-Wnqw Follow-Up: With: Address: When: Flex Wang [address] [facility] [facility] [address] [place], [place] [id number] Business (1) Comments: Begin on the amoxicillin-clavulana te antibiotic take every 12 hours for the next 10 days Follow-up with your primary care physician in 3-5 days for reevaluation, sooner if any worsening symptoms DIAGNOSIS: Otitis media, right Patient Understands: Yes - Patient/family/caregi nela verbalizes understanding of instructions given Comment: [facility] ED Patient Summaryon 021 ED Patient Summary [facility] ? Urgent Care [address] [place] [address] 17065 PATIENT DISCHARGE INSTRUCTIONS Patient Information Name: LEIGH MONTOYA Age: 19 Years Date of : 2000 Reason For Visit: UC - Ear Pain; UC - Ear Pain; RIGHT EAR PAIN Arrival Time: 06/18/2020 15:00:59 Primary Care Physician: Flex Wang DO Attending Physician: Marv Shannon Comment: Patient Education With: Address: When: Flex Wang [address] [facility], [address] [place] [id number] Business (1) Comments: Begin on the amoxicillin-clavulana [...] Follow these instructions at home: ? Take opni-jyb-wjwgmvi and prescription medicines only as told by [...] Reviewed: 05/27/2017 Elsevier Patient Education ? 2019 [employer] Medication Information: The exam and treatment you received today in the [facility] were for an urgent problem and are not intended as complete care. It is important for you to follow up with a doctor, nurse practitioner, or physician?s engineer assistant for ongoing care. If your symptoms [...] so we can reach you if necessary. [facility] Emergency Department has provided you with a complete list of medications post discharge. Please inform your art glass setter/provider of your visit and for further instruction on these medications. Any specific questions regarding your chronic medications and dosages should be discussed with your primary care physician(s) and/or pharmacist. New Medications [facility] [address]24, [address] [place], [place] [id number], [phone] amoxicillin-clavulana te (Augmentin 500 mg-125 mg oral [...] media, right (H66.91) UC - Ear Pain ([id number]) UC - Ear Pain ([id number]) If you received any narcotics, sedation, or any other medication that causes drowsiness for the next 24 hours, unless otherwise directed: ? Do not drive a car. ? Do not operate machinery such as power tools, lawn mowers, drills, sewing machines, or stoves ? Avoid alcoholic beverages and drugs for allergies, n (more content not included)... Normal [facility] Urgent Care Note- Provideron 06-18-2020 [...] subtle edema, no erythema, L TM pearly sena white, EAC without erythema or edema Neck [...] Impression and Plan Diagnosis Otitis media, right (ULM60-CJ H66.91, Discharge, Medical) Plan Prescriptions: Launch prescriptions Pharmacy: Augmentin 500 mg-125 mg oral tablet (Prescribe): 1 tab(s), PO, q12hr, for 10 day(s), 20 tab(s), 0 Refill(s). Patient was given the following educational materials: Otitis Media, Adult, Eitl-zv-Jjxz. Follow up with: Flex Wang Begin on the amoxicillin-clavulana te antibiotic take every 12 hours for the next 10 days Follow-up with your primary care physician in 3-5 days for reevaluation, sooner if any worsening symptoms. Counseled: Patient, Regarding diagnosis, Regarding diagnostic results, Regarding treatment plan, Regarding prescription, Patient indicated understanding of instructions. Normal [facility] Urgent Care [facility] 021 Urgent Care Record [facility] ? Urgent Care [address] [place], [place] [id number] PATIENT DISCHARGE INSTRUCTIONS Patient Information Name: LEIGH MONTOYA Age: 19 Years Date of : 2000 [facility]: [id number] Reason For Visit: UC - Ear Pain; UC - Ear Pain; RIGHT EAR PAIN Arrival Time: 06/18/2020 15:00:59 Primary Care Physician: Flex Wang DO Attending Physician: Marv Shannon Comment: Visit Diagnosis: Diagnoses This Visit Otitis media, right (H66.91) UC - Ear Pain ([id number]) UC - Ear Pain ([id number]) If you received any narcotics, sedation, or [...] With: Address: When: Flex Wang [address] [facility] [facility] [place] [address] Business (1) Comments: Begin on the amoxicillin-clavulana te antibiotic take every 12 hours for the next 10 days Follow-up with your primary care physician in 3-5 days for reevaluation, sooner if any worsening symptoms Medication Information: The exam and treatment you received today in the [facility] were for an urgent problem and are not intended as complete care. It is important for you to follow up with a doctor, nurse practitioner, or physician?s engineer assistant for ongoing care. If your symptoms [...] so we can reach you if necessary. [facility] Urgent Care has provided you with a complete list of medications post discharge. Please inform your art glass setter/provider of your visit and for further instruction on these medications. Any specific questions regarding your chronic medications and dosages should be discussed with your primary care physician(s) and/or pharmacist. New Medications [facility] 0935, [address] [place], [place] [id number], [phone] amoxicillin-clavulana te (Augmentin 500 mg-125 mg oral [...] Follow these instructions at home: ? Take oacv-qlv-hqlsird and prescription medicines only as told by [...] (paralyzed). ? You (more content not included)... [facility] Consent Formson 04-28-2020 Consent Forms [id number] [facility] Orderson 04-28-2020 Provider Orders [id number] [facility] Coding Summaryon 04-25-2020 Coding Summary CODING DATE: 04/25/2020 [facility] STATUS: Home PAYOR: Commercial Insurance [...] Nano Padilla Date Saved: 04/25/2020 02:38 pm [facility] .QC Respiratory Panel 2.1 (B ioFire)on 04-22-2020 Internal Control-Resp Panel 2.1(BioFire) Pass [facility] Comment on above: Order Comment: Order ed by Holley.[[id number]] Performed By: #### 6 [id number], [id number] ####[facility] (DEFAULT)[address] [place] [address] Respiratory Panel 2.1 (BioFi re)on 04-22-2020 Adenovirus -BioFire Not detected Normal Not Detected [facility] Comment on above: Performed By: #### 6 [id number], [id number] ####[facility] (DEFAULT)[address] [place] [address] 21890 Bordetella parapertussis -BioFire Not detected Normal Not Detected [facility] Comment on above: Performed By: #### 6 [id number], [id number] ####[facility] (DEFAULT)[address] [place] [address] 81905 Bordetella pertussis -BioFire Not detected Normal Not Detected [facility] Comment on above: Performed By: #### 6 [id number], [id number] ####[facility] (DEFAULT)[address] [place] [address] 94176 Chlamydia pneumoniae -BioFire Not detected Normal Not Detected [facility] Comment on above: Performed By: #### 6 [id number], [id number] ####[facility] (DEFAULT)[address] [place] [address] 04120 Coronavirus 229E (Not COVID-19) -BioFire Not detected Normal Not Detected [facility] Comment on above: Performed By: #### 6 [id number], [id number] ####[facility] (DEFAULT)[address] [place] [address] 01882 Coronavirus HKU1 (Not COVID-19) -BioFire Not detected Normal Not Detected [facility] Comment on above: Performed By: #### 6 [id number], [id number] ####[facility] (DEFAULT)[address] [place] [address] 73461 Coronavirus NL63 (Not COVID-19) -BioFire Not detected Normal Not Detected [facility] Comment on above: Performed By: #### 6 [id number], [id number] ####[facility] (DEFAULT)[address] [place] [address] 72560 Coronavirus OC43 (Not COVID-19) -BioFire Not detected Normal Not Detected [facility] Comment on above: Performed By: #### 6 [id number], [id number] ####[facility] (DEFAULT)[address] [place] [address] 76267 Employed in healthcare? No Invalid Interpretation Code [facility] Comment on above: Performed By: #### 6 [id number], [id number] ####[facility] (DEFAULT)[address] [place] [address] Group care resident? No Invalid Interpretation Code [facility] Comment on above: Performed By: #### 6 [id number], [id number] ####[facility] (DEFAULT)[address] [place] [address] 64238 Human Metapneumovirus -BioFire Not detected Normal Not Detected [facility] Comment on above: Performed By: #### 6 [id number], [id number] ####[facility] (DEFAULT)[address] [place] [address] 49002 Human Rhinovirus/Enterovir us -BioFire Not detected Normal Not Detected [facility] Comment on above: Performed By: #### 6 [id number], [id number] ####[facility] (DEFAULT)[address] [place] [address] In ICU? No Invalid Interpretation Code [facility] Comment on above: Performed By: #### 6 [id number], [id number] ####[facility] (DEFAULT)[address] [place] [address] 31691 Influenza A (no subtype) -BioFire Not detected Normal Not Detected [facility] Comment on above: Performed By: #### 6 [id number], [id number] ####[facility] (DEFAULT)[address] [place] [address] 48963 Influenza A -BioFire Not detected Normal Not Detected [facility] Comment on above: Performed By: #### 6 [id number], [id number] ####[facility] (DEFAULT)[address] [place] [address] 68379 Influenza A H1 -BioFire Not detected Normal Not Detected [facility] Comment on above: Performed By: #### 6 [id number], [id number] ####[facility] (DEFAULT)[address] [place] [address] 49389 Influenza A H1-2009 -BioFire Not detected Normal Not Detected [facility] Comment on above: Performed By: #### 6 [id number], [id number] ####[facility] (DEFAULT)[address] [place] [address] 42539 Influenza A H3 -BioFire Not detected Normal Not Detected [facility] Comment on above: Performed By: #### 6 [id number], [id number] ####[facility] (DEFAULT)[address] [place] [address] 13997 Influenza B -BioFire Not detected Normal Not Detected [facility] Comment on above: Performed By: #### 6 [id number], [id number] ####[facility] (DEFAULT)[address] [place] [address] 52507 Mycoplasma pneumoniae -BioFire Not detected Normal Not Detected [facility] Comment on above: Performed By: #### 6 [id number], [id number] ####[facility] (DEFAULT)[address] [place] [address] 86806 Parainfluenza Virus 1 -BioFire Not detected Normal Not Detected [facility] Comment on above: Performed By: #### 6 [id number], [id number] ####[facility] (DEFAULT)[address] [place] [address] 19262 Parainfluenza Virus 2 -BioFire Not detected Normal Not Detected [facility] Comment on above: Performed By: #### 6 [id number], [id number] ####[facility] (DEFAULT)[address] [place] [address] 12951 Parainfluenza Virus 3 -BioFire Not detected Normal Not Detected [facility] Comment on above: Performed By: #### 6 [id number], [id number] ####[facility] (DEFAULT)[address] [place] [address] 62583 Parainfluenza Virus 4 -BioFire Not detected Normal Not Detected [facility] Comment on above: Performed By: #### 6 [id number], [id number] ####[facility] (DEFAULT)[address] [place] [address] 48680 status? Not Invalid Interpretation Code [facility] Comment on above: Performed By: #### 6 [id number], [id number] ####[facility] (DEFAULT)[address] [place] [address] 02986 Respiratory Syncytial Virus -BioFire Not detected Normal Not Detected [facility] Comment on above: Performed By: #### 6 [id number], [id number] ####[facility] (DEFAULT)[address] [place] [address] 25361 SARS-CoV-2 (COVID-19) RNA OZZIE+probe Ql (Unsp spec) Not detected Normal Not Detected [facility] Comment on above: Performed By: #### 6 [id number], [id number] ####[facility] (DEFAULT)[address] [place] [address] 84879 SARS-CoV-2 (COVID-19) RNA OZZIE+probe Ql (Unsp spec) No Invalid Interpretation Code [facility] Comment on above: Performed By: #### 6 [id number], [id number] ####[facility] (DEFAULT)[address] [place] [address] 91725 Symptomatic as defined by CDC? No Invalid Interpretation Code [facility] Comment on above: Performed By: #### 6 [id number], [id number] ####[facility] (DEFAULT)[address] [place] [address] 35440 Vital Signs Date Time Vital Sign Value Performing Clinician Facility 12-06-2021 16:30-0400 Body height 160.02 cm Ezequiel Melo Other [facility] Other 12-06-2021 16:30-0400 Body mass index (BMI) [Ratio] 41.62 kg/m2 Ezequiel Melo Other [facility] Other 12-06-2021 16:30-0400 Body weight 106.6 kg Ezequiel Melo Other [facility] Other 10-11-2021 14:45-0400 Body height 160.02 cm Ezequiel Melo Other [facility] Other 10-11-2021 14:45-0400 Body mass index (BMI) [Ratio] 41.98 kg/m2 Ezequiel Melo Other [facility] Other 10-11-2021 14:45-0400 Body weight 107.5 kg Ezequiel Angiejessie Other [facility] Other 10-11-2021 14:45-0400 Diastolic blood pressure 79 mm[Hg] Ezequiel Melo Other [facility] Other 10-11-2021 14:45-0400 Systolic blood pressure 128 mm[Hg] Ezequiel Melo Other [facility] Other Encounters Encounter Date Encounter Type Care Provider Facility Start: 10-31-2023 End: 10-31-2023 ambulatory YASMINE JAI Not Available Start: 08-12-2023 End: 08-12-2023 ambulatory YASMINE JAI Not Available Start: 08-29-2022 End: 08-29-[address] DOCTOR SUE Facility:[facility] Start: 01-12-2022 End: 01-16-[address] DOCTOR SUE Facility:[facility] Start: 12-06-2021 End: 12-06-2021 ambulatory Ezequiel Melo Other [facility] Other Start: 12-06-2021 Patient encounter procedure Ezequiel Melo [facility] Start: 10-11-2021 End: 10-11-2021 ambulatory Ezequiel Melo Other [facility] Other Start: 10-11-2021 [facility] visit new patient Ezequiel Melo [facility] Payers Date Payer Category Payer Unknown [id number] 2000 Unknown [id number] 2.16.84 [id number] 2000 Unknown [id number] 2.16.84 [id number] 2000 Unknown [id number] 2.16.84 [id number] 2000 Unknown [id number] 2.16.84 [id number] 1959 Unknown [id number] Medicaid [id number] 2. [id number] Social History Date Type Detail Facility Sex Assigned At [facility] Other Evaluation note 12-06-2021 Note Date & Type Note Facility 12-06-2021 Evaluation note Encounter Date Diagnosis Assessment Notes Nov, Dyspepsia (ICD-10 - K30) patient states does have some bloating in the left center she does have pain noted. patient is advised that we can start levsin and refer to contractor general building for food testing. [facility] Other Evaluation note 10-11-2021 Note Date & Type Note Facility 10-11-2021 Evaluation note Encounter Date Diagnosis Assessment Notes September, Bloating (ICD-10 - R14.0) September, Dyspepsia (ICD-10 - K30) September, Abdominal pain (ICD-10 - R10.9) [facility] Other Clinical Note 04-05-2021 Note Date & [...] This may take several hours. ? Take mkkz-hqy-yirdzju and prescription medicines only as told by your health care provider. ? When you can walk without pain, wear supportive shoes that have stiff soles. Do not wear flip-flops, and do not walk barefoot. ? Keep all follow-up visits as told by your health care provider. This is important. Contact a health care provide (more content not included)... [facility] Clinical Note 07-29-2020 Note Date & Type Note Facility 07-29-2020 Note Patient Education Ma terials Follows:Disease Pharyngitis Pharyngitis is a sore throat (pharynx). This is when there is redness, pain, and swelling in your throat. Most of the time, this condition gets better on its own. In some cases, you may need medicine. Follow these instructions at home: ? Take xjgy-uuc-myuwbwj and prescription medicines only as told by [...] Document Reviewed: 06/11/2017 Elsevier Patient Education ? 2019 [employer] [facility] Clinical Note 06-18-2020 Note Date & Type Note Facility 06-18-2020 Note Patient Education Ma terials Follows: Otitis Media, Adult Otitis media means that the middle ear is red and swollen (inflamed) and full of fluid. The condition usually goes away on its own. Follow these instructions at home: ? Take rkot-fgn-ydlqbvz and prescription medicines only as told by [...] Reviewed: 05/27/2017 Elsevier Patient Education ? 2019 [employer] [facility] Clinical Note 04-22-2020 Note Date & Type Note Facility 04-22-2020 Note Nasal swab performed without complication. Patient tolerated well. Education given. Patient verbalized understanding. [Electronically Signed on: 04/22/2020 15:05 EST] Miri Nuñez RN [Verified on: 04/22/2020 15:05 EST] Miri Nuñez RN [facility] History general Narrative - Reported Note Date & Type Note Facility History general Narrative - Reported Type Medical History PCOS Medical History Endometriosis Surgical History laparoscopy - endometriosis [facility] Other Reason for referral (narrative) Note Date [...] is able to get in before this. [facility] Other Reason for visit Narrative Note Date & Type Note Facility Reason for visit Narrative PATIENT HERE AT THE REQUEST OF DR. VERGARA FOR EVALUATION & TREATMENT OF BLOATING [facility] Other Reason for visit Narrative Note Date [...] of the side effects that were listed. [facility] Other Summary Purpose Family History No Family History Records FoundNo Family History Records FoundNo Family History Records FoundNo Family History Records Found Advance Directives No Advanced Directives Records FoundNo Advanced Directives Records FoundNo Advanced Directives Records FoundNo Advanced Directives Records Found Additional Source Comments INFORMATION SOURCE (unrecogn ized section and content) DATE CREATED AUTHOR 04/21/2021 [facility] DATE CREATED AUTHOR AUTHOR'S ORGANIZ ATION 11/08/2021 [facility] DATE CREATED AUTHOR AUTHOR'S ORGANIZ ATION 09/06/2022 [facility] DATE CREATED AUTHOR AUTHOR'S ORGANIZ ATION 11/01/2023 [facility] dical Specialists [facility] FOR RECORDS PERTAINING TO PATIENTS WHO ARE [...] BE BASED ON THE PRIMARY CLINICAL RECORDS. [employer] provides no warranty or guarantee of the accuracy or completeness of information in this document.
== END 2023-11-07 09:33 | disposition home or self-care (01) ==
LOC: NOMS 09:32
PROVIDERS: Visit Provider Obstetrics & Gynecology
DX: Z36.89 Encounter for other specified antenatal screening (principal); Z3A.24 24 weeks gestation of pregnancy
CPT/HCPCS: 76805; 76817

== ENCOUNTER 2023-11-18 08:33 | Outpatient (OUT) | payer OTHER, SELFPAY ==
--- OUTSIDE RECORDS SUMMARY | 2023-11-18 08:53 | XMS_ITS | CCD ---
Author Organization [facility] Care Team Providers Care Bus Matron Name Role Phone Ezequiel Melo Unavailable [facility], DR MIRANDA Primary Care Unavailable JAI ., DR UNDERWOOD Admitting Unavailable JAI ., DR UNDERWOOD Consulting Unavailable JAI ., DR UNDERWOOD Attending [facility] Primary Care Unavailable JAI ., DR UNDERWOOD Admitting Unavailable JAI ., DR UNDERWOOD Consulting Unavailable JAI ., DR UNDERWOOD Attending Unavailable YASMINE VERGARA Attending Unavailable YASMINE VERGARA Attending Unavailable Allergies Allergy Classification Reported Allergen(s) Allergy Type Date of Onset Reaction(s) Facility (2 sources) [facility] Other (1 source) Sulfonamides (Antibiotic) Drug allergy (disorder) [facility] Repository Medications Current Medications Medication Drug [...] metFORMIN HCl No t-Taking Adrienne-28 (2 sources) [place]- Not-Ta yadira Adrienne- Active Problems Active Problems Problem Classification Problem [...] 21 to 29on 09-06-2022 . . Normal [facility] Comment on above: Performed By: #### 4 [id number] #### [facility] [address] [address] [address] Dat Wesley Age Gdln ACOG Testing - Normal [facility] Comment on above: Performed By: #### 4 [id number] #### [facility] [id number] Dat eWsley DIAGNOSIS: Comment [facility] Comment on above: Result Comment: NEGA TIVE FOR INTRAEPITHELIAL LESION OR MALIGNANCY. Performed By: #### 4 [id number] #### [facility] [address] [place] [address] Dr. Dat Wesley Methodology: Comment [facility] Comment on above: Result Comment: This liquid based ThinPrep(R) pap test was screened with the use of an image guided system. Performed By: #### 4 [id number] #### [facility] [address] [place] [address] Dr. Dat Wesley Note: Comment Normal [facility] Comment on above: Result Comment: The Pap smear is a screening test designed to aid in the detection of premalignant and malignant conditions of the uterine cervix. It is not a diagnostic procedure and should not be used as the sole means of detecting cervical cancer. Both false-positive and false-negative reports do occur. . Performed By: #### 4 [id number] #### [facility] [address] [place] [address] Dr. Dat Wesley Performed by: Comment Normal [facility] Comment on above: Result Comment: Singh Sanders Care Transport Nurse (ASCP) Performed By: #### 4 [id number] #### [facility] [address] [place] [address] Dr. Dat Wesley Reflex Criteria: Comment [facility] Comment on above: Result Comment: The HPV DNA reflex criteria were not met with this specimen result therefore, no HPV testing was performed. . Performed By: #### 4 [id number] #### [facility] [address] [place] [address] Dr. Dat Wesley Specimen adequacy: Comment Normal [facility] Comment on above: Result Comment: Sati sfactory for evaluation. Endocervical and/or squamous metaplastic cells (endocervical component) are present. Performed By: #### 4 [id number] #### [facility] [address] [place] [address] Dr. Dat Wesley HCG,Urineon 11-03-2021 Beta HCG ( test) Ql (U) Negative Normal [facility] Comment on above: Result Comment: PERF ORMED BY: [address] [id number] PATHOLOGIST DYER AND WASHER SULTANA PETE M.D. Performed By: #### U [facility] #### [address] [id number] [facility] 11-03-2021 L - -------- Specimen: [id number] Received: 11/03/21 Status: AYDIN Alex Num: [id number] Spec Type: Surgical Subm Dr: Ezequiel Melo MD Tissues: A Small Intestine - Biopsy/Polyp (SMALL BOWEL) Procedures: HE Stain/2, Gross/Micro L4 -------- Patient Age/Sex Location Account Attending Physician -------- Leigh Singh [id number] Ezequiel Melo MD -------- SPEC NUM: [id number] RECD: 11/03/21 STATUS: AYDIN JOHNSON NUM: [id number] PAPI: 11/03/[address] [facility] [address]: Ezequiel Melo MD ENTERED: 11/03/[address] [facility] [address]: SPEC TYPE: Surgical DEPT: S ORDERED: [...] Type of Fixative: 10% Neutral Buffered Formalin (MICK/YKate) Microscopic Description Two H E stained slides are reviewed. Microscopic examination is performed. This case is interpreted at [facility], [place], [place] -------- Specimen: Received: 11/03/21 Status: AYDIN Mojicaelaine Num: [id number] Spec Type: Surgical Subm Dr: Ezequiel Melo MD Tissues: A Small Intestine - Biopsy/Polyp (SMALL BOWEL) Procedures: HE Stain/2, Gross/Micro L4 -------- Patient: Leigh Singh [id number] (Continued) -------- Specimen: [id number] Received: 11/03/21 (Continued) Signed (signature on file) Gabe Ellis MD 11/06/21 1703 -------- Specimen: Received: 11/03/21 Status: AYDIN Johnson Num: [id number] Spec Type: Surgical Subm Dr: Ezequiel Melo MD Tissues: A Small Intestine - Biopsy/Polyp (SMALL BOWEL) Procedures: MARIANN Stain/2, Gross/Micro L4 -------- Patient: Leigh Singh [id number] (Continued) -------- Specimen: Received: 11/03/21 (Continued) CPT Codes 41179 -------- -------- Specimen: Received: 11/03/21 Status: AYDIN Alex Num: [id number] Spec Type: Surgical Subm Dr: Ezequiel Melo MD Tissues: A Small Intestine - Biopsy/Polyp (SMALL BOWEL) Procedures: HE Stain/2, Gross/Micro L4 -------- Patient: Leigh Singh [id number] (Continued) -------- Signed (signature on file) Gabe Ellis MD 11/06/21 1703 Normal [facility] SARS-CoV-2 (COVID-19) RNA OZZIE+probe Ql (Unsp spec) Negative Normal Negative [facility] Comment on above: Order Comment: Healt hcare Worker?: N Result Comment: Testing for SARS-CoV-2 by RT-PCR This test was developed and its performance characteristics determined by [employer] and validated at the [facility]. This test has not been FDA [...] is terminated or revoked sooner. PERFORMED BY: [place] [address] PATHOLOGIST DYER AND WASHER SULTANA PETE M.D. Performed By: #### C OVID 19 [facility] #### [address] Coding Summaryon 04-19-2021 Coding Summary HTMLBase 64 OljmqtfrDZf4cWi+PGhlY WQ+GO3JVUVvV68pwFGpbH 2AX1xIWY9SRDFGQUMVTY5 THM6vvRJ3JNasC1LmfoOg EooznRLmHJ27UTk7SBU4p UbjGMwyqL3rpPRoG7w8Bl VqNO56qC63SNhvYCGxYmQ 3LjZpbjsgbWFy O4fvXmTwkTPrSfj+PHRhY mxlIHdpZHRoPScxMDAlJy WmgXpaIA3pWy2qSQYgAIM vbGxhcHNlOiBj t8oiYNFlPYpeQZ7tlZqoI 4FjbCT9FZRms7n7Zi11nD I+QGIwIMI2nRwpMUimb67 9ZxCrk5zwMGJ3 kXJoIIhhWFG1L96pp3C0L PPlQWXsBIM3tWG7dZ5eqS zaxtahT6LttQEmNsC6JTO 3sIEldM9nxQlv xluoxK0qGim+U17PYJ9PN NWJOO0IObr1X1YtGjzqmS I+NQ98ZIGpCY99cEOfqZX za2lxxOx1QvLs KDYoFXZ7oYgfIDwca8ClF UXxG88hcEFpw5P3TOTdqE dehBBeIwAnuVH3nM6fOBt wmwfms8myxjad Wymjv2ewxo88jI70I04dO JwzIUUwAUQ2ARFxPBQhkW cbat2qzZ6bQs0+JSnjv1r ov7oiyXl2QiSg IQTftyXgdWqeOOL4q0OgB p18K2JnqFobd9CfQxn0lr 65bXOch7G9eWE4ZIvwNFB xgP0jHChkAkG5 GVRgBcHuhV33yLZgUYivF t5eeZakqAirHB2dTTVjuo bdAAKoaE9uUCNgcPMolNg tHB6yPIXpadte o501ApUuNQN4EXRefLCmC 6QooX7qTdUpRMYtJFJlU2 XksFPfTZwnJ134MTtzYhL 8TGHegiWuS7Bk VXTbuDngBsD8m3C7At4Vh 5QzqbqkAQI6XYedSOTqWl VwZpVoQzL8L8FbLmo3IEH wvCpaOD0iZ6Zd FPRjqnmbhudhmWL4WTNyL TKzgK68hPMbDPmiQa9br0 W1y366UHVoHUWqmC38Rb9 udDogMTBwdCBU pW2vadrpc6xtipbaByPkT QNdIPj0QVt2NJNmkEezEw GsKZK6YnL9PWJ8eANwwN4 jpUisxjbhvK3e Oyc+K42apD3wOYJ9TDR2n lmmIRRiexLuUV11AA05H2 RyPjwvdGFibGU+PGRpdiB nxVerJO2oFnFe k7zyn7WxMSqkB7TjRVWtY BifUdr2MJWgFKQ5kKF3mV 0rIRMpHUfyn3G7tQL0Y1I cajUmcg8nw1vw RIKuABieR63fbQYrg7M0S XFbnNW3LEGcjBmoChDhyP 93Oyc+AUVemIyak9GpPix wc1uwe6qljGb2 YbPiJNCibpIjwDyyXWB0q 2TiDz30K66gUCfqNNLqAI AwCODlMBOxkMfarq3tzV4 wIi8+PGNvbCB3 gNA8pD2lQYCqIrK1MWytL 531AjSptVIlMxbss8ted6 jhrAl7MyCpXWMfdeKmaUj jQFN6p3HdDk93 X60tQPrxABMyDKGyJJWtD PHkeYpjeu2glA7cLz0+PC 7tj5eguv27eO87nPB+PHR lNDA6aVabQXia AKStfU2vFTqpKqB5RWYiP dUfpB52pMDfPBtfHd5heO kyiMrlGS5kQPQegruxp86 5TyWtp9itRELl aXBxZDeyGAS9C05fv5I7Q LFoDPLtSMZ4xAJ3jO9joO lnbjogbGVmdDsgdmVydGl eNBvsLOwkJ413 IHRvcDsnPlBhdGllbnQgT zPaBZb8Q5NxGar2WAGbwN eaMM9bhWBzSOihDp4beQo tjPamZW1fSYYe gagpv671RwSyk7myGNPfv MJwQUiwLZQ0Y22uk4L4KT KlEKIsAZQ0aGX5hO2fzHs nbjogbGVmdDsg rrBnoDcjVSefDKepH272X HRvcDsnPkJpcnRoIERhdG Q5QT95IV75zCLzx1P3mYL 7W7SdKIQqeswq bhrxqZP4KAZyHVFreP84C i3ynQioGz8tAEFmLIR8QX ItaSNpH1JbtJ3eQaTjMEV aGMRcF3XvhQPh IPjgX366EYgpNcR9TKXld wFfC2GgQYTpmSxbPmK9n0 Y1Di8KY9L7WQ60HL87iGK fq2D1tWS2E7Cm QAZvfnwygpeebEZ1EHUfD DDrkK88Di4fmVvxBg8mUO TyHMN6QACpjDEeK6CdjH2 yOiAjMDAwMDAw C1OkhSEhGWzpM104BZaeC zE9XVYathJcR8QeWEIbpC gzEzM8p0B5Ew1MNJv7EW5 5DE79pJJch9H0 pDE6D0AsAIBlavbhhfpac DS0XRVwBKJqoJ34Mq9dvC okNj9gTNZdCNJ2GZVdfAN dH7UptA2nFnDb WEVkMOCoJ8DmpWJgQMemL 933BTtwMyS7RAUxxdAtX6 DlWQKudBgnVpG9d0G9Re5 IYQPzFP85FBO0 zWG5BZ38PB52R7GjRzaiq GFibGU+PHRhYmxlIHdpZH RoPScxMDAlJyBzdHlsZT0 eVa7rDSBqZGFx cAeheTUaCbLij6qjFKLfP JkrCR8adTmaN9SsqRN3CG Jlk9w2Xn16I74sV3NzmNK +AQFozCC8mXY0 aS2dAwZiCeH6NKbaY623V bMkaZTxKzmve2loi0uyiE y4UzO7IDPbpgSaqUxwJZQ 2k1YjYy21G19c IHdpZHRoPSIxNSUiIHZhb Dxvpv3exA3uKx6+PGNvbC U3wHO9oB9yPuNbAlF1DZz pD428KhRtoVPn Fugyl4aer7tzaJg6LjKvX ACozyAosGelIXV5u2TrVx 80C6FauVhhq0HhSxh8bd1 6lEGdb3A0zQX1 R3TkWTZorkomeEEtmCdlJ P5bDERwcehuZXDnuM6sSL IdI9e6CbRuZtI1XKebW1H guwE7IYXwzKKw RPnaHOG3R65cd7V8YWMaB FCnAIS7mGN4rJ2dsZclwm ogbGVmdDsgdmVydGljYWw vEGdtZ850IHKz vAhtHTIxzC9cMZDrzFAqd KglZG4fGPUvffwrIiKUHF REWSwgSEFOTkFIIEdSQUN HCF30ZV06yCVa a7P4cMA6I7HnYWOwsixkm jbvkPB4CQCrPGLtwT63wW UwUIwkKg8qp7B8f188GYE jRCZfkJ41Io2y bAwmEDRaaAXPbX5cslldb 7vheumiZkKoTPIcVCz4YX c3XVYutKyjWgZrSNM8GtY 7QJO7sJUwdR9g bVhdcvtvaL6fUkx+MDMvM DkvMjAwMTwvdGQ+PHRkIH T3rTyfAIwpMCIuhE4rQZF oV2b0TdEoXxB7 UNcwF1HwMBGszgiaRv51b V6nQjAgZqI6YIzsO0Usjs U3TJQumJGlEQsxUPI4A13 qx6Q0AJMwWAEk BRZ4mTB2jL9ntNqurojqf GVmdDsgdmVydGljYWwtYW sfR729IVRavWvcUfUfVHv wLVWfGK05WT30 uWImc9G8qEH0G9MxSVEao lrosrrpvWS1AZSbMFJiaL 50pLMwFTqcSb1qz3P5k74 5ZJRlNOBlxI68 Gs1cpShzGQDcvOLVtZ6oe vsue0qkdsvgCyLaGLXiZB b0CTm6ZBWxtTneNbCeVSN 6TsW3GRR3lXDg nD4kzXsxxdvqpL2jTqp+R wVTDNrNVV75HP62yLUue7 P2dKL7F9PsHGPlymmdrty klSC2YXLqJDSp hV93cXTfRLkcAx0mk0M2j 958ZQRnFCJjsW92Eq0fpB mhMPSapMJTaI8pnbwur4f vcjogIzAwMDAw SRg9FEz3QRJjuRffLbBmQ RT8AgJ5GES0wVWesL3yiX iswcckxV0fIjo+W5W7Z0E kPjwvdHI+PC90 ODHsSZ29aAVajICnl1zcl Cb8TjGxGTCkINJ7yXxkCZ sjx3BrEDZzQ94pjYEzw0W 6IGNvbGxhcHNl SxZmvFP1dN5fQDebkizbf 5asolrpDouwh8bqha16kW 49H19bRAsxPDWkVYHiDWL aACNscMyglp2i mH3gMv5+KKPjnFI5xLZ5k V6hBbEaSiO9AOjmU036Kd IlhIMkGwdxv4kjl0bjyFx 9IjIwJSIgdmFs wRhjTZG8u7RpXy32O47nN HdpZHRoPSIyMCUiIHZhbG bkmy9zdC9cTh8+SM1hx2g zmi10xQ08wXT+ XJZtWBZ6dJfgTPmtZOOqw M1sIVbeTiP5MUTjDqKkqZ 06wVQfSDfoKi9hsHxgzEn dYE2bPBDausxx q971ZlKsj2hrXMWfwARmB YpeWWF6K36td0Q5ROUgWW SbOXN0vPC9wO8ctNvihkm gbGVmdDsgdmVy jDalQUwaEUzpX799ZKNjo UykFdKnkZVyP7nbwuLHTV 1lOjwvdGQ+JJPzROV2qQk rCEfiWJZiiS5v TTPgW4v7IbCyXrV4BGpwG 4EgcuI5XRKvsZGuJNIacG BMoI0vcymbu5teayobTpS wAKXkRUs5UNy9 HCZhuUzpKuHgTXE4LsI1R VO6jADquM5vtQximbuflO 9wOyc+RklOOjwvdGQ+PHR eAJA2bOflEPal LBShvK3kSLNbH7b7WjTmY bQ0MNmhY9KirxN8TMRpiR PtOARbsFAAdP8kztjhp6o vcjogIzAwMDAw MVd4KPh0FGYkwIawUtSpS PE6RmP7NPO7oRQtoY7rdN yihqccuV2vWfm+TVJOOjw vdGQ+PHRkIHN0 sDvjQScpYTCjuA4gHYTvH 8c8WnKbLcW3QTbcG4Dphj D3GPQgfNUqPCRyvPUHiH6 mcmvur5exvjiz SvHlPBTtBPe7QCl1BJPol EhsVuMnAOL3ZyZ3YZP9yH NkjR6ydPwzmmrahW7vUgk +GHC9FBE1NQ23 YB82K8QgCcdgqKSbrBH+P HRhYmxlIHdpZHRoPScxMD AcGvGjyMjxZI6wUe3lOXN yLWNvbGxhcHNl OiB (more content not included)... [facility] Urgent Care Note- Provideron 04-06-2021 Urgent [...] and Plan Diagnosis Sprain of left foot (IDL36-SA S93.602A, Discharge, Medical) Plan Condition: Stable. Disposition: [...] she can arrange follow-up as needed. Normal [facility] ED Clinical Summaryon 2020 ED Clinical Summary [facility] ? Urgent Care [address] [place] [id number] Clinical Summary PERSON INFORMATION Name: LEIGH MONTOYA Age: 20 Years Sex: FEMALE : 2000 MRN: Acct#: Visit Reason: UC - Ankle/Foot/Toe Pain or Swelling; LEFT FOOT PAIN Arrival: 04/05/2021 16:12:07 Discharge: 04/05/2021 17:50:00 LOS: 000 01:38 Check In: 04/05/2021 16:12:07 Checkout: 04/05/2021 17:50:00 Address: [facility] [address] PCP: Flex Wang DO PROVIDER INFORMATION Provider Role Assigned Unassigned Monica Dunn BAR TACKER Nurse 04/05/2021 16:14:32 Paul Atkins PA-C ED [...] Sprain Follow-Up: With: Address: When: JEFF Bernabe MashMango [address] [place] [id number] Business (1) , only if needed With: Address: When: Flex Wang [address] [facility] [address] [place], [place] [phone] Business (1) Within 3 to 5 days DIAGNOSIS: Sprain of left foot Patient Understands: Yes - Patient/family/caregi nela verbalizes understanding of instructions given Comment: Normal [facility] ED Patient Summaryon 021 ED Patient Summary [facility] ? Urgent Care [address] [place], [place] [id number] PATIENT DISCHARGE INSTRUCTIONS Patient Information Name: LEIGH MONTOYA Age: 20 Years Date of : 2000 Reason For Visit: UC - Ankle/Foot/Toe Pain or Swelling; LEFT FOOT PAIN Arrival Time: 04/05/2021 16:12:07 Primary Care Physician: Flex Wang DO Attending Physician: Nirav Nunez Comment: Patient Education With: Address: When: JEFF Bernabe MashM[address] [place] [phone] Business (1) , only if needed With: Address: When: Flex Wang [address] [facility], [address] [place] [phone] [employer] (1) Within 3 to 5 days Foot [...] ? As (more content not included)... Normal [facility]gent Care Recordon 021 Urgent Care Record [facility] ? Urgent Care [address] [place], [place] [id number] PATIENT DISCHARGE INSTRUCTIONS Patient Information Name: LEIGH MONTOYA Age: 20 Years Date of : 2000 Reason For Visit: UC - Ankle/Foot/Toe Pain or Swelling; LEFT FOOT PAIN Arrival Time: 04/05/2021 16:12:07 Primary Care Physician: Flex Wang DO Attending Physician: Nirav Nunez Comment: Visit Diagnosis: Diagnoses This Visit Sprain of left foot (S93.602A) UC - Ankle/Foot/Toe Pain or Swelling ([id number]) If you received any narcotics, sedation, or [...] documents With: Address: When: JEFF JESUS [address] [address] Business (1) , only if needed With: Address: When: Flex Wang [address] [facility], [place] [address] Business (1) Within 3 to 5 days Medication Information: The exam and treatment you received today in the [facility] were for an urgent problem and are not intended as complete care. It is important for you to follow up with a doctor, nurse practitioner, or physician?s dental assistant medical assistant for ongoing care. If your symptoms [...] so we can reach you if necessary. [facility] has provided you with a complete list of medications post discharge. Please inform your naval designer/provider of your visit and for further instruction [...] are no br (more content not included)... [facility] XR Foot Complete Lefton 03-20 XR [...] Signature): Vishal Fernandez 04/06/21 8:27 am Technologist: [facility] Coding Summaryon 08-01-2020 Coding Summary HTMLBase 64 KubggqhtTDt2aVx+PGhlY WQ+IP9HIDMyS63wpUFuqT 1IS6wAPN4IFNXLPRTTZU0 XSV1fyXX0YMquB2QhltLg QezzhDSqAB53YRs7FCH8c TrqSTmuuC4bqPBeL8a0Ck DmMX25oS55XOfcAEPtSzM 3LjZpbjsgbWFy G8fwQvIeqKWpCfl+PHRhY mxlIHdpZHRoPScxMDAlJy MbcDapRC9lEx3yLCIcWSN vbGxhcHNlOiBj z1dcXCVtTTebFC7xrRkeQ 4BfwAJ8JWTom2m7Ke04bW I+JHGuOYT2iJfiKPlyf99 8XiVtu4xsWRD1 bSRkTJowNNK8W39cd8V3Z OSdURZwDLV3xJS2oU5wrP wvhklsE7EeiMJeHxZ7HPZ 6qLKrxJ4qfAdi uktonK4uEqu+P78ELI8BJ JNEYY6RBtf0N8KjUpezbJ I+PD96TDCvIY91uNCyaVY cr8hjfMa4SzGq BAUiHDR1wSbrMAypi8CdY ZJwB52dwZSgc7U0QEHppL kfsAXqBjFzzVK2iN9dLFp tijvpu1vjowsj Yvlij9arsz90gR37B94wI TrkZMFvFJO6BLFwDMJejY otcm9jbU4dOg9+NKfkd1q wh4srxOx6TbIm GDLhvlSxzKqwGVW4w6SuF o58V7AqlCjwh8WkIdh6uk 70aNFpq4J1kWT5HTlmBJL huZ4iJYspRzY0 FOMrHpZhuV29pZEmTKnsJ g2bkPqarSubDS6pSUHtdk boRZDuuG9pXLRhzCYbjPd nJI6oRVIrrrrb u444EeTeMUV0VGZmyRElN 9TpcL7oImVzUYKoILPhP7 XkdXWhSYggJ713IAkhChU 4TISrsmMxJ6Rx WZZyfTgoMbD2e7D2Ee6Yw 7NpbfytTQA6QEyrDOYuFm I0PhCpZcK3H8BfVbg4RSC aePhtDL1yY7Tr ZMWgmoieauyemEJ6LKDmP KBpkO18rZBsKHcmCg9ug5 Z5o254PMDrIJSnwZ45Uw3 udDogMTBwdCBU nS1krhqrb4hgwpmqNqYtZ VCaQBz8ONo8ADNcrPfoMz PkCSX6GbF0BTS6rDSycK2 cfEcyzfvxtY1f Oyc+S03kiN3fTCQ7PPR2l jidIFWemuDsRQ08HU99V5 RyPjwvdGFibGU+PGRpdiB ufMbjDV9cCkQk k6xkj8EbRSkiA9MyCVWvR BkcXvv4NEQcVKK1wDF5eN 3gAGGiUEupb2F3pLP0N9M fcyIfhs8bk4jg MXCxLEliD60buVQoy0X9M WOpwJN2EUVvuOzmGnUbaK 93Oyc+RZXtkFfvc9KiGle uj9vcq8fsjVq4 NbHbLXUfspMeuEfpEPC6r 3ZdXy96Q97vKQmyVTGzJY KtSBRzIJBnrCgwli1boX9 wIi8+PGNvbCB3 fBB8aE2gELUoTbS2CMvnE 568FdHysBIgMkmgx6dkz1 aguRp5PfGmCPBqwwZtcKs tBWS6p3WqEt39 S84cKOqvTMStNIIbHBXmL LKonNgsjq8oiG3oNy0+PC 3lx2dlus68eA02aEC+PHR sRBX5cHtuTFlh DSJmiF4dXSaiDhL5RVVrW pFyiB50oBMmRPsgYq5qsO hecNvlRE1tSNDqsvdrq53 6NiEeh3yxBASw gHQqMJmgIGE6O58ya6Q3J OAdIIVcHQR0yVW0nS6toS lnbjogbGVmdDsgdmVydGl vBSfzFVgwN206 IHRvcDsnPlBhdGllbnQgT rJfYNi1V0VcFas6YQXimH oiWM2liHWoJHsoYw3rzIz kxGzhTI2iFJRo zrfrj777QpElw4khFZRks MWxJYvgKUV7C38fn6M9UG ZkGENxDZL7hGJ7dT9wiQk nbjogbGVmdDsg ddDloOruROgnYEpoL370X HRvcDsnPkJpcnRoIERhdG L4JC78ZU77aOUgx6H1lUC 7T5QmVYQxdxfl xxnuaZU9UNIoXBIzfZ64Y c5cpGwgCe8uZQRnIRY3YB ApfEJaQ3ZbyA7hCfBaBDA qLQGtV0ZpeZZj ZSvhX729SRkgPlH4OMToa hEjW9McIBJntXmoBmM4u0 K0Xq7SY0A4YY92BW35dUT ok2U5qDO8N7Ev GLHsftkylthmzTW9JMWfT VJinU29Mf3hgXzwHu4wYQ WcPFE5JQWqgNStV6GzdM7 yOiAjMDAwMDAw B9TlxIOwGPqhB050LNhvX yU6JLMmpnGoR9TbVBFqjO uqKlG6r7U9Ih2DNRm0ZG8 1VB49mXSnv5Q0 nXO6G1OqQOEyzvztvcixg XU0FCGiNVPeiM50Ge5ecQ wtQs3oTBVzYTA8DMVzqVG qS5OacP2qJoTv ZRWmIOBgZ6RqoFSiDHltH 129IOthQqV9XDTsbdMjD0 BtBPRyqEqtSyH8c3I1Mk5 HHJYhQH29GYW1 dXG6PS20DK31C7ImGutgy GFibGU+PHRhYmxlIHdpZH RoPScxMDAlJyBzdHlsZT0 jGs7sGZQvELRp kRxquAOhLgLyl3uhHVXuP LgqEF2glMdpC0MyeFL0PH Zni5i0Xn83A23oI2YuaEB +TJYuwSB6lOJ3 lW5yBlNaWjO5KAjmM469N oFayFIgPtmpg9urc2algQ j4CqV4XSZflvUmbJitMGR 5m4WoWn64N48n IHdpZHRoPSIxNSUiIHZhb Ozcdc5tuF2jJo0+PGNvbC U5zPT5lW3nUpLgFmI3OMa lL245YfUnuKPg Qalci9ngp6fviRx5ZhHwZ WHytmBziGofHGP7g3WbUv 86O5AurTgpf6BwCbp1jy4 5cDPby1K5lRB0 S5HuBEMzbzrceZViuXusD Z9gDBZifokbTZBozB1gPH BeY8w1LbEiGsK6BZgaM4L thwQ6JJQnaUBy WDlbKPL1S02zh3M4XTBiY VOwDAW2xWL7rG4bqVhrle ogbGVmdDsgdmVydGljYWw mUEnwU836SOAq gNmfVDSshA2fAYLpaIQyx IqiUV1gAEMuehnzIkOYJT REWSwgSEFOTkFIIEdSQUN NZX29QS30rNSk t9H7mRM8N6GgOYVshkjtj idroGH7WDLtOYPklA19lI BgPIgjAa6pg5K8i082ODM cIJAgcF30Do1n sKkwTUNhwFYZuG9kluklh 9ecquxzEnTzHXEeFHv1JU d0IRIkuDxoLjBgUDK0TwI 2ERB6qYEgwI2l oIbogrxymP2kWga+MDMvM DkvMjAwMTwvdGQ+PHRkIH M6yVleOGimPMOcjS1uWJT jV6z5CzUxWqU4 OLqwY3QsXGUaibjfRf41v W5mVpJnWdG2KTzmX6Tdun N9WRBbxEUfIIonMUN3H93 gv6N8KZEzLZZs GFZ3cND5tZ2mxBrnbukya GVmdDsgdmVydGljYWwtYW glW708BXWvwNjwCcJcLBl kCSXoQI59CJ40 eGEez8B5eZG6B7IkYZMni bgviayzgGI8KCFhLSJlnI 47zITpGFnwEm3vn1U2l25 7OORpHBQpeI34 Wb1plBszUXPjjGEDqT4rk ftox2uqcnvvYrQqLWLfDH o1ESc5KBEenRnhGeQhAFR 5XpB9MQD6eQTh sB2soOciysjdkI3qEuu+R tAFPNaJDS48DW84oVJmr8 Y8wWW4P2OjNKWhdcluowt omXK9NTLfGJOg wL81yBNvOTevKn4uw5R5p 087VJCsWXGdwA63Iu8clH cjNQWvxACVaX5xynueh1g vcjogIzAwMDAw MRa3HFz7DPBnkQxsAyMlQ AR0TxC0YUU9yPOemD9yeS zxaprqkL3mJln+H9F6T3D kPjwvdHI+PC90 KOXgZA52dHRjyAYxf9awr Oc8RmGiJLDyWPF7iVosCI nlw9DhPKFjM51pdCHmf4V 6IGNvbGxhcHNl QoPlrNB7vI5hTTdexhbxt 1mksfrcUvwli7ynzj21vB 77Q77lNHujURJyGOJzMDW sSZLkpBylah8n dE5eTq1+LHHxfIF4jEE7v B4nXcNkSlR9OOukI752Vm XbiHScUwleq9sur5uudDl 9IjIwJSIgdmFs zLqdXEU5u4JmIz08Q07iD HdpZHRoPSIyMCUiIHZhbG zjbz0ytM0oOg2+WZ0ag9o quw34vF14nCU+ ARHwUAO5iCphFIiiIFIky Q2jMRhmTzV0CXNmTnCjlI 81zIAcIElcFy9rbIwcmAq aOL2jQFBozngy e223JfSkn4amBAVwgUDhV GdhRAM4A27of0Q9RUOsAQ EiICY3qKS4gZ4baXovatn gbGVmdDsgdmVy qVyfMGnkMUehN501EIMyl IzmMzWsiRHpV1moeiCJGX 1lOjwvdGQ+QPVyHAL5rYh sDXokKLWriD1o FEOjW2f7QrInQmY7OGzdV 0AkwxB7NAUxkRHwUXHifY WYrG9uwictb4gdqqyiGgL oXOEbMTd6MFx2 QDVetPraQaAqWHN4RqA8W OL9aWIotU1edCrynwpweS 9wOyc+RklOOjwvdGQ+PHR jTKM8zBsbACtf NQYcyP0oCUVtG0q7NtKvF gT4KEphC3JygdB5XHStnY JvHOYwxKGVcE4tqgqjn2b vcjogIzAwMDAw GQu5IRi9XSLifFmiOaFgY QL8LqR3AJQ3sVSeiI9nfQ cljdyqgI6rUio+TVJOOjw vdGQ+PHRkIHN0 fVleBOveLNFetJ6kNESyD 2e1QcRgYwS6MMexI9Kbfa F4WBDwzGTwVOVrzFONmR7 bbljpc9vmpiaj XxEsNKCnUDk1PDq8RABzn GbmZrCcIWC5SlF4TDQ1jL BkxL1ycSsznvlziW4tFul +JMB7DYF2HG09 WO39F2VrKguenEYxzHM+P HRhYmxlIHdpZHRoPScxMD HiRtWanMekHL2rPn0qIQS yLWNvbGxhcHNl OiB (more content not included)... Normal [facility] C Throaton 03-14-2021 C Throat Ordered by Discern. Normal throat regi isolated No pathogens isolated Normal [facility] Comment on above: Performed By: #### [id number] ####[facility] (DEFAULT)[address] [place] [address] ED Clinical Summaryon 2020 ED Clinical Summary [facility] ? Urgent Care [address] [place] [id number] Clinical Summary PERSON INFORMATION Name: LEIGH MONTOYA Age: 20 Years Sex: FEMALE : 2000 MRN: Acct#: Visit Reason: UC - Sore Throat; THROAT PAIN Arrival: 07/29/2020 09:44:22 Discharge: 07/29/2020 10:23:00 LOS: 000 00:39 Check In: 07/29/2020 09:44:22 Checkout: 07/29/2020 10:23:00 Address: [address] [place] [address] PCP: Flex Wang DO PROVIDER INFORMATION Provider [...] Negative . Impression and Plan Diagnosis Pharyngitis (BQS49-LT J02.9, Discharge, Medical) Plan Condition: Stable. Disposition: Discharged: Time 07/29/2020 10:17:00 (more content not included)... Normal [facility] ED Note - Provideron 021 ED Note [...] Negative . Impression and Plan Diagnosis Pharyngitis ([id number] J02.9, Discharge, Medical) Plan Condition: Stable. Disposition: Discharged: Time 07/29/2020 10:17:00, to home. Patient was given the following educational materials: Pharyngitis, Qtnd-vv-Yhiy, Pharyngitis, Pzhi-oa-Ynyb. Follow up with: Flex Wang Within 2 [...] on: 07/29/2020 10:20 EST] Patricia Meeks PA-C [facility] ED Patient Summaryon 021 ED Patient Summary [facility] ? Urgent Care [address] [place] [address] PATIENT DISCHARGE INSTRUCTIONS Patient Information Name: LEIGH MONTOYA Age: 20 Years Date of : 2000 [facility]: [id number] Reason For Visit: UC - Sore Throat; THROAT PAIN Arrival Time: 07/29/2020 09:44:22 Primary Care Physician: Flex Wang DO Attending Physician: Patricia Meeks PA-C Comment: Patient Education With: Address: When: Flex Wang [address] [facility], [place] [address] Business (1) Within 2 to 4 days [...] Follow these instructions at home: ? Take hpre-onk-gdbamjt and prescription medicines only as told by [...] 10/22/2008 Document Revised: 04/18/2018 Document Reviewed: 06/11/2017 [employer] Patient Education ? 2020 [employer]. Medication Information: The exam and treatment you received today in the [facility] Emergency Department were for an urgent problem and are not intended as complete care. It is important for you to follow up with a doctor, nurse practitioner, or physician?s dental assistant medical assistant for ongoing care. If your symptoms [...] so we can reach you if necessary. [facility] Emergency Department has provided you with a complete list of medications post discharge. Please inform your naval designer/provider of your visit and for further instruction [...] Throat (C11 (more content not included)... Normal [facility] Strep Aon 07-29-2020 Strep procedure control Pass Normal [facility] Comment on above: Performed By: #### [id number] ####[facility] (DEFAULT)[address] [place] [id number] Streptococcus A Negative Normal Negative [facility] Comment on above: Performed By: #### [id number] ####[facility] (DEFAULT)[address] [place] [id number] Urgent Care Recordon 021 Urgent Care Record [facility] ? Urgent Care [address] [place] [address] PATIENT DISCHARGE INSTRUCTIONS Patient Information Name: LEIGH MONTOYA Age: 20 Years Date of : 2000 Reason For Visit: UC - Sore Throat; THROAT PAIN Arrival Time: 07/29/2020 09:44:22 Primary Care Physician: Flex Wang DO Attending Physician: Patricia Meeks PA-C Comment: Visit Diagnosis: Diagnoses This Visit Pharyngitis (J02.9) UC - Sore Throat ([id number]) If you received any narcotics, sedation, or [...] With: Address: When: Flex Wang [address] [facility], [place] [address] Business (1) Within 2 to 4 days [...] and treatment you received today in the [facility] were for an urgent problem and are not intended as complete care. It is important for you to follow up with a doctor, nurse practitioner, or physician?s dental assistant medical assistant for ongoing care. If your symptoms [...] so we can reach you if necessary. [facility] has provided you with a complete list of medications post discharge. Please inform your naval designer/provider of your visit and for further instruction [...] Follow these instructions at home: ? Take vicc-zmh-uvdgmeo and prescription medicines only as told by [...] Get help righ (more content not included)... Normal [facility] Coding Summaryon 06-27-2020 Coding Summary CODING DATE: 06/27/2020 [facility] STATUS: Home PAYOR: Commercial Insurance ADMIT DX: [...] Nano Padilla Date Saved: 06/27/2020 12:37 pm [facility] ED Clinical Summaryon 2020 ED Clinical Summary [facility] ? Urgent Care [address] [place] [address] Clinical Summary PERSON INFORMATION Name: LEIGH MONTOYA Age: 19 Years Sex: FEMALE : 2000 MRN: Acct#: Visit Reason: UC - Ear Pain; UC - Ear Pain; RIGHT EAR PAIN Arrival: 06/18/2020 15:00:59 Discharge: 06/18/2020 15:27:00 LOS: 000 00:27 Check In: 06/18/2020 15:00:59 Checkout: 06/18/2020 15:27:00 Address: [address] [place] [address] PCP: Flex Wang DO PROVIDER INFORMATION Provider Role Assigned Unassigned Monica Dunn BAR TACKER Nurse 06/18/2020 15:03:15 SpaMarv Pisano ED PA 06/18/2020 15:03:24 VITALS INFORMATION Vital Sign Triage Latest Temperature Tympanic Temperature Temporal Artery Pulse Rate O2 Sat 98 % 98 % Respiratory Rate Blood Pressure /78 mmHg /78 mmHg MEDICAL INFORMATION Medications Given: Allergy Information: sulfamethoxazole; ibuprofen PHYSICIAN DOCUMENTATION DISCHARGE INFORMATION: Discharge Disposition: Home Discharge Location: Home PATIENT EDUCATION INFORMATION Instructions: Otitis Media, Adult, Hpoj-uc-Ahqp Follow-Up: With: Address: When: Flex Wang [address] [facility], [address] [place], [place] [id number] Business (1) Comments: Begin on the amoxicillin-clavulana te antibiotic take every 12 hours for the next 10 days Follow-up with your primary care physician in 3-5 days for reevaluation, sooner if any worsening symptoms DIAGNOSIS: Otitis media, right Patient Understands: Yes - Patient/family/caregi nela verbalizes understanding of instructions given Comment: [facility] ED Patient Summaryon 021 ED Patient Summary [facility] ? Urgent Care [address] [place] [address] PATIENT DISCHARGE INSTRUCTIONS Patient Information Name: LEIGH MONTOYA Age: 19 Years Date of : 2000 Reason For Visit: UC - Ear Pain; UC - Ear Pain; RIGHT EAR PAIN Arrival Time: 06/18/2020 15:00:59 Primary Care Physician: Flex Wang DO Attending Physician: Marv Shannon Comment: Patient Education With: Address: When: Flex Wang [address] [facility], [address] [place] [id number] Business (1) Comments: Begin on the amoxicillin-clavulana [...] Follow these instructions at home: ? Take ynhu-caa-jscsyjk and prescription medicines only as told by [...] Reviewed: 05/27/2017 Elsevier Patient Education ? 2019 [employer]vier Inc. Medication Information: The exam and treatment you received today in the [facility] Emergency Department were for an urgent problem and are not intended as complete care. It is important for you to follow up with a doctor, nurse practitioner, or physician?s dental assistant medical assistant for ongoing care. If your symptoms [...] so we can reach you if necessary. [facility] Emergency Department has provided you with a complete list of medications post discharge. Please inform your naval designer/provider of your visit and for further instruction on these medications. Any specific questions regarding your chronic medications and dosages should be discussed with your primary care physician(s) and/or pharmacist. New Medications [facility], [address] [place], [place] [id number], [phone] amoxicillin-clavulana te (Augmentin 500 mg-125 mg oral [...] media, right (H66.91) UC - Ear Pain ([id number]) UC - Ear Pain ([id number]) If you received any narcotics, sedation, or any other medication that causes drowsiness for the next 24 hours, unless otherwise directed: ? Do not drive a car. ? Do not operate machinery such as power tools, lawn mowers, drills, sewing machines, or stoves ? Avoid alcoholic beverages and drugs for allergies, n (more content not included)... Normal [facility] Urgent Care Note- Provideron 06-18-2020 Urgent Care [...] Impression and Plan Diagnosis Otitis media, right ([id number]-HO H66.91, Discharge, Medical) Plan Prescriptions: [facility] prescriptions Pharmacy: Augmentin 500 mg-125 mg oral tablet (Prescribe): 1 tab(s), PO, q12hr, for 10 day(s), 20 tab(s), 0 Refill(s). Patient was given the following educational materials: Otitis Media, Adult, Lfsp-ir-Kusu. Follow up with: Flex Wang Begin on the amoxicillin-clavulana te antibiotic take every 12 hours for the next 10 days Follow-up with your primary care physician in 3-5 days for reevaluation, sooner if any worsening symptoms. Counseled: Patient, Regarding diagnosis, Regarding diagnostic results, Regarding treatment plan, Regarding prescription, Patient indicated understanding of instructions. Normal [facility] Ur[facility] Care [place] 021 Urgent Care Record [facility] ? Urgent Care [address] [place] [address] PATIENT DISCHARGE INSTRUCTIONS Patient Information Name: LEIGH MONTOYA Age: 19 Years Date of : 2000 Reason For Visit: UC - Ear Pain; UC - Ear Pain; RIGHT EAR PAIN Arrival Time: 06/18/2020 15:00:59 Primary Care Physician: Flex Wang DO Attending Physician: Marv Shannon Comment: Visit Diagnosis: Diagnoses This Visit Otitis media, right (H66.91) UC - Ear Pain ([id number]) UC - Ear Pain ([id number]) If you received any narcotics, sedation, or [...] With: Address: When: Flex Wang [address] [facility], [place] [address] Business (1) Comments: Begin on the amoxicillin-clavulana te antibiotic take every 12 hours for the next 10 days Follow-up with your primary care physician in 3-5 days for reevaluation, sooner if any worsening symptoms Medication Information: The exam and treatment you received today in the [facility] were for an urgent problem and are not intended as complete care. It is important for you to follow up with a doctor, nurse practitioner, or physician?s dental assistant medical assistant for ongoing care. If your symptoms [...] so we can reach you if necessary. [facility] has provided you with a complete list of medications post discharge. Please inform your naval designer/provider of your visit and for further instruction on these medications. Any specific questions regarding your chronic medications and dosages should be discussed with your primary care physician(s) and/or pharmacist. New Medications [facility] [address], [address] [place], [place] [id number], [phone] amoxicillin-clavulana te (Augmentin 500 mg-125 mg oral [...] Follow these instructions at home: ? Take qnwa-sgf-mxjfgcj and prescription medicines only as told by [...] (paralyzed). ? You (more content not included)... [facility] Consent Formson 04-28-2020 Consent Forms [id number] [facility] 04-28-2020 Provider Orders [id number] [facility] Coding Summaryon 04-25-2020 Coding Summary CODING DATE: 04/25/2020 [facility] STATUS: Home PAYOR: Commercial Insurance ADMIT DX: [...] Nano Padilla Date Saved: 04/25/2020 02:38 pm [facility] .QC Respiratory Panel 2.1 (B ioFire)on 04-22-2020 Internal Control-Resp Panel 2.1(BioFire) Pass [facility] Comment on above: Order Comment: Order ed by Holley.[[id number]] Performed By: #### 6 [id number], [id number] ####[facility] (DEFAULT)[address] [place] [address] Respiratory Panel 2.1 (BioFi re)on 04-22-2020 Adenovirus -BioFire Not detected Normal Not Detected [facility] Comment on above: Performed By: #### 6 [id number], [id number] ####[facility] (DEFAULT)[address] [place] [address] Bordetella parapertussis -BioFire Not detected Normal Not Detected [facility] Comment on above: Performed By: #### 6 [id number], [id number] ####[facility] (DEFAULT)[address] [place] [address] Bordetella pertussis -BioFire Not detected Normal Not Detected [facility] Comment on above: Performed By: #### 6 [id number], [id number] ####[facility] (DEFAULT)[address] [place] [address] Chlamydia pneumoniae -BioFire Not detected Normal Not Detected [facility] Comment on above: Performed By: #### 6 [id number], [id number] ####[facility] (DEFAULT)[address] [place] [address] Coronavirus 229E (Not COVID-19) -BioFire Not detected Normal Not Detected [facility] Comment on above: Performed By: #### 6 [id number], [id number] ####[facility] (DEFAULT)[address] [place] [address] Coronavirus HKU1 (Not COVID-19) -BioFire Not detected Normal Not Detected [facility] Comment on above: Performed By: #### 6 [id number], [id number] ####[facility] (DEFAULT)[address] [place] [address] Coronavirus NL63 (Not COVID-19) -BioFire Not detected Normal Not Detected [facility] Comment on above: Performed By: #### 6 [id number], [id number] ####[facility] (DEFAULT)[address] [place] [address] Coronavirus OC43 (Not COVID-19) -BioFire Not detected Normal Not Detected [facility] Comment on above: Performed By: #### 6 [id number], [id number] ####[facility] (DEFAULT)[address] [place] [address] Employed in healthcare? No Invalid Interpretation Code [facility] Comment on above: Performed By: #### 6 [id number], [id number] ####[facility] (DEFAULT)[address] [place] [address] Group care resident? No Invalid Interpretation Code [facility] Comment on above: Performed By: #### 6 [id number], [id number] ####[facility] (DEFAULT)[address] [place] [address] Human Metapneumovirus -BioFire Not detected Normal Not Detected [facility] Comment on above: Performed By: #### 6 [id number], [id number] ####[facility] (DEFAULT)[address] [place] [address] Human Rhinovirus/Enterovir us -BioFire Not detected Normal Not Detected [facility] Comment on above: Performed By: #### 6 [id number], [id number] ####[facility] (DEFAULT)[address] [place] [address] In ICU? No Invalid Interpretation Code [facility] Comment on above: Performed By: #### 6 [id number], [id number] ####[facility] (DEFAULT)[address] [place] [address] Influenza A (no subtype) -BioFire Not detected Normal Not Detected [facility] Comment on above: Performed By: #### 6 [id number], [id number] ####[facility] (DEFAULT)[address] [place] [address] Influenza A -BioFire Not detected Normal Not Detected [facility] Comment on above: Performed By: #### 6 [id number], [id number] ####[facility] (DEFAULT)[address] [place] [address] Influenza A H1 -BioFire Not detected Normal Not Detected [facility] Comment on above: Performed By: #### 6 [id number], [id number] ####[facility] (DEFAULT)[address] [place] [address] Influenza A H1-2009 -BioFire Not detected Normal Not Detected [facility] Comment on above: Performed By: #### 6 [id number], [id number] ####[facility] (DEFAULT)[address] [place] [address] Influenza A H3 -BioFire Not detected Normal Not Detected [facility] Comment on above: Performed By: #### 6 [id number], [id number] ####[facility] (DEFAULT)[address] [place] [address] Influenza B -BioFire Not detected Normal Not Detected [facility] Comment on above: Performed By: #### 6 [id number], [id number] ####[facility] (DEFAULT)[address] [place] [address] Mycoplasma pneumoniae -BioFire Not detected Normal Not Detected [facility] Comment on above: Performed By: #### 6 [id number], [id number] ####[facility] (DEFAULT)[address] [place] [address] Parainfluenza Virus 1 -BioFire Not detected Normal Not Detected [facility] Comment on above: Performed By: #### 6 [id number], [id number] ####[facility] (DEFAULT)[address] [place] [address] Parainfluenza Virus 2 -BioFire Not detected Normal Not Detected [facility] Comment on above: Performed By: #### 6 [id number], [id number] ####[facility] (DEFAULT)[address] [place] [address] Parainfluenza Virus 3 -BioFire Not detected Normal Not Detected [facility] Comment on above: Performed By: #### 6 [id number], [id number] ####[facility] (DEFAULT)[address] [place] [address] Parainfluenza Virus 4 -BioFire Not detected Normal Not Detected [facility] Comment on above: Performed By: #### 6 [id number], [id number] ####[facility] (DEFAULT)[address] [place] [address] status? Not Invalid Interpretation Code [facility] Comment on above: Performed By: #### 6 [id number], [id number] ####[facility] (DEFAULT)[address] [place] [address] Respiratory Syncytial Virus -BioFire Not detected Normal Not Detected [facility] Comment on above: Performed By: #### 6 [id number], [id number] ####[facility] (DEFAULT)[address] [place] [address] SARS-CoV-2 (COVID-19) RNA OZZIE+probe Ql (Unsp spec) Not detected Normal Not Detected [facility] Comment on above: Performed By: #### 6 [id number], [id number] ####[facility] (DEFAULT)[address] [place] [address] SARS-CoV-2 (COVID-19) RNA OZZIE+probe Ql (Unsp spec) No Invalid Interpretation Code [facility] Comment on above: Performed By: #### 6 [id number], [id number] ####[facility] (DEFAULT)[address] [place] [address] Symptomatic as defined by CDC? No Invalid Interpretation Code [facility] Comment on above: Performed By: #### 6 [id number], [id number] ####[facility] (DEFAULT)[address] [place] [address] Vital Signs Date Time Vital Sign Value Performing Clinician Facility 12-06-2021 16:30-0400 Body height 160.02 cm Ezequiel Melo Other [facility] 12-06-2021 16:30-0400 Body mass index (BMI) [Ratio] 41.62 kg/m2 Ezequiel Melo Other [facility] 12-06-2021 16:30-0400 Body weight 106.6 kg Ezequiel Melo Other [facility] 10-11-2021 14:45-0400 Body height 160.02 cm Ezequiel Melo Other [facility] 10-11-2021 14:45-0400 Body mass index (BMI) [Ratio] 41.98 kg/m2 Ezequiel Melo Other [facility] 10-11-2021 14:45-0400 Body weight 107.5 kg Ezequiel Angiejessie Other [facility] 10-11-2021 14:45-0400 Diastolic blood pressure 79 mm[Hg] Ezequiel Melo Other [facility] 10-11-2021 14:45-0400 Systolic blood pressure 128 mm[Hg] Ezequiel Angiejessie Other [facility] Other Encounters Encounter Date Encounter Type Care Provider Facility Start: 11-07-2023 End: 11-07-2023 ambulatory YASMINE JAI Not Available Start: 10-31-2023 End: 10-31-2023 ambulatory YASMINE JAI Not Available Start: 08-12-2023 End: 08-12-2023 ambulatory YASMINE JAI Not Available Start: 08-29-2022 End: 08-29-[address] DOCTOR SUE Facility:[facility] Start: 01-12-2022 End: 01-16-[address] DOCTOR SUE Facility:[facility] Start: 12-06-2021 End: 12-06-2021 ambulatory Ezequiel Melo Other [facility] Start: 12-06-2021 Patient encounter procedure Ezequiel Melo [facility] Start: 10-11-2021 End: 10-11-2021 ambulatory Ezequiel Melo Other [facility] Start: 10-11-2021 [facility] visit new patient Ezequiel Melo [facility] Payers Date Payer Category Payer Unknown [id number] 2000 Unknown [id number] 2.16.84 [id number] 2000 Unknown [id number] 2.16.84 [id number] 2000 Unknown [id number] 2.16.84 [id number] 2000 Unknown [id number] 2.16.84 [id number] 2000 Unknown [id number] 2.16.84 [id number] 1959 Unknown [id number] Medicaid [id number] 2. [id number] Social History Date Type Detail Facility Sex Assigned At [facility] Other Evaluation note 12-06-2021 Note Date & Type Note Facility 12-06-2021 Evaluation note Encounter Date Diagnosis Assessment Notes Nov, Dyspepsia (ICD-10 - K30) patient states does have some bloating in the left center she does have pain noted. patient is advised that we can start levsin and refer to public area supervisor for food testing. [facility] Other Evaluation note 10-11-2021 Note Date & Type Note Facility 10-11-2021 Evaluation note Encounter Date Diagnosis Assessment Notes September, Bloating (ICD-10 - R14.0) September, Dyspepsia (ICD-10 - K30) September, Abdominal pain (ICD-10 - R10.9) [facility] Clinical Note 04-05-2021 Note Date & [...] This may take several hours. ? Take gtsr-cdb-hggaorl and prescription medicines only as told by your health care provider. ? When you can walk without pain, wear supportive shoes that have stiff soles. Do not wear flip-flops, and do not walk barefoot. ? Keep all follow-up visits as told by your health care provider. This is important. Contact a health care provide (more content not included)... [facility] Clinical Note 07-29-2020 Note Date & Type Note Facility 07-29-2020 Note Patient Education Ma terials Follows:Disease Pharyngitis Pharyngitis is a sore throat (pharynx). This is when there is redness, pain, and swelling in your throat. Most of the time, this condition gets better on its own. In some cases, you may need medicine. Follow these instructions at home: ? Take neqt-qtm-fabmcru and prescription medicines only as told by [...] Reviewed: 06/11/2017 Elsevier Patient Education ? 2019 [facility] Clinical Note 06-18-2020 Note Date & Type Note Facility 06-18-2020 Note Patient Education Ma terials Follows: Otitis Media, Adult Otitis media means that the middle ear is red and swollen (inflamed) and full of fluid. The condition usually goes away on its own. Follow these instructions at home: ? Take ifpz-trp-bthsaar and prescription medicines only as told by [...] Reviewed: 05/27/2017 Elsevier Patient Education ? 2019 [facility] 04-22-2020 Note Date & Type Note Facility 04-22-2020 Note Nasal swab performed without complication. Patient tolerated well. Education given. Patient verbalized understanding. [Electronically Signed on: 04/22/2020 15:05 EST] Miri Nuñez RN [Verified on: 04/22/2020 15:05 EST] Miri Nuñez RN [facility] History general Narrative - Reported Note Date & Type Note Facility History general Narrative - Reported Type Medical History PCOS Medical History Endometriosis Surgical History laparoscopy - endometriosis [facility] Reason for referral (narrative) Note Date [...] is able to get in before this. [facility] Reason for visit Narrative Note Date & Type Note Facility Reason for visit Narrative PATIENT HERE AT THE REQUEST OF DR. VERGARA FOR EVALUATION & TREATMENT OF BLOATING [facility] Other Reason for visit Narrative Note Date [...] of the side effects that were listed. [facility] Other Summary Purpose Family History No Family History Records FoundNo Family History Records FoundNo Family History Records FoundNo Family History Records Found Advance Directives No Advanced Directives Records FoundNo Advanced Directives Records FoundNo Advanced Directives Records FoundNo Advanced Directives Records Found Additional Source Comments INFORMATION SOURCE (unrecogn ized section and content) DATE CREATED AUTHOR 04/21/2021 [facility] DATE CREATED AUTHOR AUTHOR'S ORGANIZ ATION 11/08/2021 [facility] DATE CREATED AUTHOR AUTHOR'S ORGANIZ ATION 09/06/2022 [facility] DATE CREATED AUTHOR AUTHOR'S ORGANIZ ATION 11/09/2023 [facility] EPIC FOR RECORDS PERTAINING TO [...] BE BASED ON THE PRIMARY CLINICAL RECORDS. [employer] provides no warranty or guarantee of the accuracy or completeness of information in this document.
[2023-11-18 09:27] LABS: Glucose Fasting 84 mg/dL (<95)
[2023-11-18 11:20] LABS: Glucose 1 Hour 162 mg/dL (<180)
[2023-11-18 11:39] LABS: Glucose 2 Hour 148 mg/dL (<155)
[2023-11-18 12:00] LABS: Glucose 3 Hour 111 mg/dL (<140)
== END 2023-11-18 08:34 | disposition home or self-care (01) ==
LOC: LAB 08:33
PROVIDERS: Visit Provider Obstetrics & Gynecology
DX: R73.09 Other abnormal glucose (principal)
CPT/HCPCS: 36415; 82951; 82952

== ENCOUNTER 2023-12-02 10:10 | Outpatient (OUT) | payer OTHER, SELFPAY ==
--- NOTE | 2023-12-02 10:12 | US_ITS ---
[address] [address] Patient Name: SHAQUILLE VIEYRA MRN: [id number] date: 2000 Sex: F Assigned Patient Location: [facility] Current Patient Location: [facility] Accession/Order Number: [id number] Exam Date: 12/02/2023 10:12 Report Date: 12/02/2023 10:42 At the request of: YASMINE VERGARA Procedure: US OB growth EXAMINATION: US OB growth HISTORY: LARGE FOR GESTATIONAL AGE COMPARISON: No relevant comparison available. FINDINGS: Heart Rate: 144 bpm Amniotic Fluid Volume: 2.5 cm, largest fluid pocket 3.6 cm Number: 1 Position: Cephalic presentation, longitudinal lie BIOMETRY: BPD: 6.68 cm cm; 26 weeks 6 days; 66.90 %% HC: 25.41 cm cm; 27 weeks 4 days; 74.50 %% AC: 22.75 cm cm; 27 weeks 1 day; 72 %% FL: 5.12 cm cm; 27 weeks 3 days; 73.80 %% EFW: 1009.41 g; 83.70 %, 2 lbs. 5 oz. FL/AC: 22.51 FL/BPD: 76.65 HC/AC: 1.12 GESTATIONAL AGE: Age by EDC: 26 weeks 1 day KEEGAN by EDC: 2024-03-08 Age by US: 27 weeks 0 days KEEGAN by US: 2024-03-02 US/US OB growth IMPRESSION: Normal interval growth Electronically authenticated by: INGRID BARAJAS Date: 12/02/2023 10:42
== END 2023-12-02 10:11 | disposition home or self-care (01) ==
LOC: NOMS 10:10
PROVIDERS: Visit Provider Obstetrics & Gynecology
DX: O36.63X0 Maternal care for excessive fetal growth, third trimester, not applicable or unspecified (principal); Z3A.27 27 weeks gestation of pregnancy
CPT/HCPCS: 76816

== ENCOUNTER 2024-01-16 16:04 | Outpatient (OUT) | payer OTHER, SELFPAY ==
--- OUTSIDE RECORDS SUMMARY | 2024-01-16 16:10 | XMS_ITS | CCD ---
Author Organization [facility] Care Team Providers Care Electrical Manufacturing Engineer Name Role Phone Ezequiel Melo Unavailable [facility], DR MIRANDA Primary Care Unavailable JAI ., DR UNDERWOOD Admitting Unavailable JAI ., DR UNDERWOOD Consulting Unavailable JAI ., DR UNDERWOOD Attending [facility]available [facility] MIR[facility] Primary Care Unavailable JAI ., DR UNDERWOOD Admitting Unavailable JAI ., DR UNDERWOOD Consulting Unavailable JAI ., DR UNDERWOOD Attending Unavailable YASMINE VERGARA Attending Unavailable YASMINE VERGARA Attending Unavailable YASMINE VERGARA Attending Unavailable MIRIAM HAWLEY Attending Unavailable YASMINE VERGARA Attending Unavailable Allergies Allergy Classification Reported Allergen(s) Allergy Type Date of Onset Reaction(s) Facility (2 sources) [facility]ulf[facility]amide Drug [facility] Other (1 source) Sulfonamides (Antibiotic) Drug allergy (disorder) [facility] Repository Medications Current Medications Medication Drug [...] (1 source) Biguanide metFORMIN HCl No t-Taking (2 sources) Not-Ta yadira Active Problems Active Problems Problem Classification Problem [...] 21 to 29on 09-06-2022 . . Normal [facility] Comment on above: Performed By: #### 4 [id number] #### [facility] Laboratory [address] [place] [address] Dr. Dat Wesley Age Gdln ACOG Testing 21-29 Normal [facility] Comment on above: Performed By: #### 4 [id number] #### [facility] [address] [place] [address] Dr. Dat Wesley DIAGNOSIS: Comment Normal [facility] Comment on above: Result Comment: NEGA TIVE FOR INTRAEPITHELIAL LESION OR MALIGNANCY. Performed By: #### 4 [id number] #### [facility] [address] [place] [address] Dr. Dat Wesley Methodology: Comment [facility] Comment on above: Result Comment: This liquid based ThinPrep(R) pap test was screened with the use of an image guided system. Performed By: #### 4 [id number] #### [facility] [address] [place] [address] Dr. Dat Wesley Note: Comment [facility] Comment on above: Result Comment: The Pap smear is a screening test designed to aid in the detection of premalignant and malignant conditions of the uterine cervix. It is not a diagnostic procedure and should not be used as the sole means of detecting cervical cancer. Both false-positive and false-negative reports do occur. . Performed By: #### 4 [id number] #### [facility] [address] [place] [address] Dr. Dat Wesley Performed by: Comment Normal [facility] Comment on above: Result Comment: Singh Sanders Instructional Design Specialist (ASCP) Performed By: #### 4 [id number] #### [facility] [address] [place] [address] Dr. Dat Wesley Reflex Criteria: Comment [facility] Comment on above: Result Comment: The HPV DNA reflex criteria were not met with this specimen result therefore, no HPV testing was performed. . Performed By: #### 4 [id number] #### [facility] [address] [place] [address] Dr. Dat Wesley Specimen adequacy: Comment Normal [facility] Comment on above: Result Comment: Sati sfactory for evaluation. Endocervical and/or squamous metaplastic cells (endocervical component) are present. Performed By: #### 4 [id number] #### [facility] [address] [place] [address] Dr. Dat Wesley HCG,Urineon 11-03-2021 Beta HCG ( test) Ql (U) Negative Normal [facility] Comment on above: Result Comment: PERF ORMED BY: [address] [place] [id number] PATHOLOGIST CHEESE PANCAKE ROLLER SULTANA PETE M.D. Performed By: #### U HCG #### [place] [id number] [facility] Charles 11-03-2021 L - -------- Specimen: [id number] Received: 11/03/21 Status: AYDIN Alex Num: [id number] Spec Type: Surgical Subm Dr: Ezequiel Melo MD Tissues: A Small Intestine - Biopsy/Polyp (SMALL BOWEL) Procedures: HE Stain/2, Gross/Micro L4 -------- Patient Age/Sex Location Account Attending Physician -------- Leigh Singh [id number] Ezequiel Melo MD -------- SPEC NUM: [id number] RECD: 11/03/21 STATUS: AYDIN JOHNSON NUM: [id number] PAPI: 11/03/21 [facility] DR: Ezequiel Melo MD ENTERED: 11/03/[address] [facility] [address]: SPEC TYPE: Surgical DEPT: S [...] is performed. This case is interpreted at [facility], [place], [place] -------- Specimen: Received: 11/03/21 Status: RAFAELChino Johnson Num: [id number] Spec Type: Surgical Subm Dr: Ezequiel Melo MD Tissues: A Small Intestine - Biopsy/Polyp (SMALL BOWEL) Procedures: HE Stain/2, Gross/Micro L4 -------- Patient: Leigh Singh [id number] (Continued) -------- Specimen: [id number] Received: 11/03/21 (Continued) Signed (signature on file) Gabe Ellis MD 11/06/21 1703 -------- Specimen: [id number] Received: 11/03/21 Status: RAFAELChino Johnson Num: [id number] Spec Type: Surgical Subm Dr: Ezequiel Melo MD Tissues: A Small Intestine - Biopsy/Polyp (SMALL BOWEL) Procedures: HE Stain/2, Gross/Micro L4 -------- Patient: Leigh Singh [id number] (Continued) -------- Specimen: Received: 11/03/21 (Continued) CPT Codes 36619 -------- -------- Specimen: Received: 11/03/21 Status: AYDIN Johnson Num: [id number] Spec Type: Surgical Subm Dr: Ezequiel Melo MD Tissues: A Small Intestine - Biopsy/Polyp (SMALL BOWEL) Procedures: MARIANN Stain/2, Gross/Micro L4 -------- Patient: FranciscoLeigh Craig [id number] (Continued) -------- Signed (signature on file) Gabe Ellis MD 11/06/21 1703 Normal [facility] SARS-CoV-2 (COVID-19) RNA OZZIE+probe Ql (Unsp spec) Negative Normal Negative [facility] Comment on above: Order Comment: Healt hcare Worker?: N Result Comment: Testing for SARS-CoV-2 by RT-PCR This test was developed and its performance characteristics determined by [employer]) and validated at the [facility]. This test has not been FDA [...] is terminated or revoked sooner. PERFORMED BY: [address] [place] [address] PATHOLOGIST CHEESE PANCAKE ROLLER SULTANA PETE M.D. Performed By: #### C OVID 19 [facility] #### [address] Coding Summaryon 04-19-2021 Coding Summary HTMLBase 64 VhpcfanoXZv4vSy+PGhlY WQ+UX6QSWSxT80xcMLvzK 1EY0sCJF6GYCLICZWMFT5 TBK2azCA3LSdjZ5LphiBl TzonjFSgTK97UQn5UCD0f UbqBNnzpN2vrZNqJ0z6Ib ZuKX31cW90BEutTEMiPrD 3LjZpbjsgbWFy S7hfNeQvvRBzYaw+PHRhY mxlIHdpZHRoPScxMDAlJy GooHtwVJ2bZm4wKVYvQVT vbGxhcHNlOiBj e6ftLWOhLWhwZO3hrFujO 2WsmVN9CAEho7s1Xt36iO I+MTFgQUI0fKigNBmai26 4GgJgb7bkPBB9 uEAlIIadXNG5Y96oh4N4E LAdFEWrQXI2yHD0xW5bxJ xrxmqrO4GxsKInJuD1XND 2xZRklG5nqMpu phdbaP4xLrq+H10HVZ0PV BTFBP4GFyn5S7OoKwysxG I+OM26TNDgAE32kJFwmEO rj5aanPg3IzFz GHAjIKC1lRyvFEwsp8MdJ LEtL50erKUlw6Y6OKVrkY ybsBIoWpFolVZ5mJ0zOZj xkllwq8viktxb Mhncz8omyw12rH77K99zV RrmZLFaMAM9UIBgLNAsiU lwjm8bdZ3oLs6+ONkxu0f lb7cnyMd1QaQr ERLdphEzxYleVPB6d5PaO p94D5QroJzdn1DwHjm1kw 14lOOpu0V2yEB5JSxuRAQ lmK9oLUdlZhM1 LRBcTlRuiB27eBQlZFilS z3uwKpzzXdzJB6mMYWrlj yzXCIsdN5bGOBfbERkoOb jVR9cMLStdssr h474XdGuWIC1DNExbFMnV 8NxjU4oFqVhCYZjMJTvC7 FhlRDhDXyqX287YMudIzQ 1KQLhwvJpI3Xq DJBsoIlzPtY5b3Z6Xx1Fb 8XfeblsOMJ4BJbjHJKgIt KgPbTfVjA7I6HsMts1IQU ugUqkEO3kL7Jg ODEgjfhgbnsxzBI7SCAkW RIciK78kWMcMUwhOl5ku0 N9k511ZRYqJMFstF83Rh0 udDogMTBwdCBU uS0wfyusg1keeqhaLvBzR ZBmLCy0RWa3YXJgaHchLz XiJXD2EoO0QPQ5jZXejH4 zkJvvegzqzJ1s Oyc+R92zuR5dJWO1TSC2u kaxQVCsbcJdUX78FI52W9 RyPjwvdGFibGU+PGRpdiB pcTztTD1vCuFb i5cuf4FzLKlmM1IzDXMpS PaxByy4UFIlCAS2iUL2bM 4aNSPuXKfxy9P3rQJ5Y4K clnRifp2wp8td BEChKLwbU29xoQBwc3M5I BJcbFI0XRXadNoiFpGryM 93Oyc+PERliAbqr8YaVec qb1duc1emaDl1 SePcJLBwluTxfEgoCGP5q 7IaEl71M00fMAnkOWIkXN CzEASeATGftTuuls9hcK6 wIi8+PGNvbCB3 dHL2gL3cWTZvWdJ5GQxoE 842CiCotGDfGcxsf8syd0 qraNa7IqRrKEZtywQxcFj tULB5l6IfWq14 K57cOAouHAJlPWIjOBGlA JSixFylbj2qxF3vSa6+PC 3gu5ltpg79tU19hXY+PHR tWYM6zMjjZQfd POJtuW8bGDujYdZ6DNQwL iNctO84hHPjOVlpIh3wiS engHseFU1eLFMlqzjtp44 8JkZcw3edGCCm iDHdJWjzFEQ0J82bi0N3T DJjZWGrEMH2fKD2vG1dnX lnbjogbGVmdDsgdmVydGl pRInbCPntZ559 IHRvcDsnPlBhdGllbnQgT tUyOWx1C1LmTni1BMMyzR wbRM8auZNyMXshRh7rzZl koEwfQB7jUHWu qsrfr305AuWzl3ciBKHux JJtWRcnYNO7Q73vy2B0SD JxKBSvZYE2nIF1bH5zjRs nbjogbGVmdDsg fgQabHueVRwyKDfxJ699M HRvcDsnPkJpcnRoIERhdG Y4NE38YZ11zYSxv6O5vEN 0X6AcJVQzgtlv gvpsdGL7ICAmSHQcyZ59H u6oeWvsSi1yFOLkCVW4KY TylVBxC3FsmN8wAmSqCFY cEQGhM0MuqAXe PFqmM758RIhcUxR3BGYjg hGaI7LjFHXczKqpHtP5y8 Y4Qi3GT8H8CV90WM40wGD xk0C7nXG6J3Ho TKPfajklbbagnHL0CGYdC HHukA44Ox7veKfhQj9tKW XoFXV5NMOivNGiU8HlpG9 yOiAjMDAwMDAw E0HgcDGtBBymL048LNplB tG1MPXfdoWlW2CiKAZrmM ugGxL3u2G6Mb8YBEt8BH1 9XN71oWRvv0L6 lMQ4I7DiXYGjdppgqyxso EV0BXHrMHUkuZ78Qd2gtY kgZd2wEZScHRW7QHLnfNU kI8RchG6wDyBf WWPpGDVyB1AwxROsYBtqN 764YIozXdV7CILrzbQqF0 DqCUCkhWchEfR6t6V0Cm5 DEKZnOI14AFK0 fND1KO01DN34U2EaTbbvi GFibGU+PHRhYmxlIHdpZH RoPScxMDAlJyBzdHlsZT0 bXu6rOWUwJELa kGntyJRnQmFyw8tlHCVmD JzzPI5ziBubA2FezSU5CJ Wkr4k4Au43O06kS3JokVV +FLGznJY6iBK5 sR5lPtZkBpE7HUxvU463B eSepKFyMfths4dsa9mqlT i3SsO7EQWfgwYvtEosKIM 9j1GuTw90Z31t IHdpZHRoPSIxNSUiIHZhb Ssqrr3umM1qUd9+PGNvbC Q7tPN7jN3xXbJpGdS8XGz tK556ZtKjpRSw Oynui7dgb6kziHv2EsHnV JInqgZhyHdlVUE3g4IzGb 80F5OgmCqxf1DzImi6zy0 4zTOaj9B4sSR8 N1FxXYIxxslsaLAtzFixI K4dRXKjkvcfBCGeyT3zHD EnS2f5LgPtChO0OSqwJ5R trsI8MNYzvPUb TGpzLNA2D36bx9B3PEVpF YTmEAI8uDB1zF0nqFugju ogbGVmdDsgdmVydGljYWw mUEgfP441CSDn bTyaWFLbkN5tTSFwzKSgh BphEO7wGYUnegxgDzMNUN REWSwgSEFOTkFIIEdSQUN KXC38VJ55tIWj x7J6jQN8J8EzJGIubrtkr lnmlQD2VUOtGSOwdG67iD WrTEjbSu3sp7A6w295CRU wZUWmbF73Vl5h hUavGJMjyFLLaP4vvhxmd 5sabgwqAtRiXPHkYHw7LQ v0ROHxpFinJdVwWBN5RoP 3OSS7gFJqmK2q jAwlkaipjX1fZdl+MDMvM DkvMjAwMTwvdGQ+PHRkIH N4bYoySXrrOYCeiX9nNCG aX9w1XwUoTgY5 NVckJ5IfTGHwrdsvZy16f U1iInAzVlO1DPryX2Joqq I5DECnoMFfSSzfHGG1F44 ut6W1LWGiPCQv GML8bHZ4mY6pcWjmgociy GVmdDsgdmVydGljYWwtYW swI755BPAkyZlvDbFfUIp jJXZbIX42BZ74 jPNlf6K1lLM4T7XhJHGxb ksytrbwrYO6IKSpTEGxgE 63fFFmWHpkNu6tq4E8u83 9WTJcAJLesK85 Sp8ieEgrNGFnbGQVfD7pe alks4tkiijvCuZfEMFdBG i9TUa3UKAwaVseVoPgLFU 5GkM4XVN6sXIz xK0wcRqeekvwaC0tNmx+R yGBESgBPM05SO44yOSoe3 F7lXL6A7BtBYIonnrxafs hjNQ6BGJcWFMn oT92mGNxFSbpHp3pk4H9n 729JVQfRYQmcH31We0fiK swQSUkeZROzA3vqnxrh1n vcjogIzAwMDAw UFw4LZh2EXTxaIgyAiEfJ WI2YmO2HRW1zELvwL1bxK hfpofqoI7wOnv+U8U9F3O kPjwvdHI+PC90 JVTfLP44fCEatQNmp7xar Er0ZtWpBVOdXCA8hBnyLW zgl8FkOGBfQ09hjRLsh9N 6IGNvbGxhcHNl WxMoxON4xQ3iQDtxtgdtn 2djwifxLclge5zvls02jC 87Q90kTTcyOWHqVXYyONC dKZPvaQgaqt6k hC8jWb3+BOLhpYT3jYU0c E2rSnVgWrV4YUdaR083Gg MgqWTtJibxu2ytb0ngmSg 9IjIwJSIgdmFs oCdmJMB5l3FbKh34K69wG HdpZHRoPSIyMCUiIHZhbG cquz3kwV6iFr0+NZ0el3p bzj96iV93zYY+ ZIIbPVN0nNxcGYupQEDgv Q4yKEwsCgT8HOSqQnCpvE 88bGUrBBqzKl7lrFrjdXb rMV4nCYRltahj g651ByHkr7ipABRwhTTiT ZftAYD8G71mq1M4VEKvNW KqEIR4nLC6eC8noKzxinv gbGVmdDsgdmVy hRgcQJvtVOdjO542EMVtb GsfZaUhpNXwJ5amihHIMN 1lOjwvdGQ+ZYFyOHA9lFe vZFcgEZCjbI1h BSLuX9j8SuGvDaP1RKhuL 1VdzwT3IQYciDUlIUSupW CWkB8dgfbtv9sntseeQfP wLBIuJIj0AJw4 WCIjnBgySvCuEDA7HkR1H BO8bFZvjH1msGismdyzvM 9wOyc+RklOOjwvdGQ+PHR vNXL4aJozOAyd FWKtlY4gFERiN6k6MfFjC sO8JLmrO8ZdlcE1TVOpmP HhCMOekOFIyY2agxclf5b vcjogIzAwMDAw PYb6IHj8CWUmrFjhAmIpC VG1YcZ1PAH9sUMqvG3lpY bprvibaE2bNgo+TVJOOjw vdGQ+PHRkIHN0 tKseZSnpAGBtaC8hMHTfK 0j5TrOzRdB7MCgmR5Yjbg X3QYVeoTHpAUHhdVMRmY9 ixrdwi0cnqzba MiOxSPOxZVy8WLs6XVHkj GjkBrOlVLT4MzY8ODP1gH FfeY8mmPahfepneX2iWvs +JKF5HEQ9NA98 FV33F6CvVgkvnMLqmET+P HRhYmxlIHdpZHRoPScxMD JhIdEfkGamDS0bNb8pRAI yLWNvbGxhcHNl OiB (more content not included)... [facility] Urgent Care Note- Provideron 04-06-2021 Urgent Care Note- Provider Patient: LEIGH MOTNOYA Age: 20 years Sex: FEMALE : 2000 [...] and Plan Diagnosis Sprain of left foot ([id number]-BK S93.602A, Discharge, Medical) Plan Condition: Stable. Disposition: [...] she can arrange follow-up as needed. Normal [facility] ED Clinical Summaryon 2020 ED Clinical Summary [facility] ? Urgent Care [address] [place] [id number] Clinical Summary PERSON INFORMATION Name: LEIGH MONTOYA Age: 20 Years Sex: FEMALE : 2000 MRN: Acct#: Visit Reason: UC - Ankle/Foot/Toe Pain or Swelling; LEFT FOOT PAIN Arrival: 04/05/2021 16:12:07 Discharge: 04/05/2021 17:50:00 LOS: 000 01:38 Check In: 04/05/2021 16:12:07 Checkout: 04/05/2021 17:50:00 Address: [facility] [address] PCP: Flex Wang DO PROVIDER INFORMATION Provider Role Assigned Unassigned Monica Dunn ARTIFICIAL BREAST FABRICATOR Nurse 04/05/2021 16:14:32 Paul Atkins PA-C ED [...] Sprain Follow-Up: With: Address: When: JEFF Bernabe [employer] [address] [place], [place] [id number] Business (1) , only if needed With: Address: When: Flex Wang [address] [facility] [address] [place] [id number] Business (1) Within 3 to 5 days DIAGNOSIS: Sprain of left foot Patient Understands: Yes - Patient/family/caregi nela verbalizes understanding of instructions given Comment: Normal [facility] ED Patient Summaryon 021 ED Patient Summary [facility] ? Urgent Care [address] [place], [place] [id number] PATIENT DISCHARGE INSTRUCTIONS Patient Information Name: LEIGH MONTOYA Age: 20 Years Date of : 2000 Reason For Visit: UC - Ankle/Foot/Toe Pain or Swelling; LEFT FOOT PAIN Arrival Time: 04/05/2021 16:12:07 Primary Care Physician: Flex Wang DO Attending Physician: Nirav Nunez Comment: Patient Education With: Address: When: JEFF Bernabe [employer] [address] [address] Business (1) , only if needed With: Address: When: Flex Wang [address] [facility], [place] [address] Business (1) Within 3 to [...] ? As (more content not included)... Normal [facility] Urgent Care Recordon 021 Urgent Care Record [facility] ? Urgent Care [address] [facility] [place], [place] [id number] PATIENT DISCHARGE INSTRUCTIONS Patient Information Name: LEIGH MONTOYA Age: 20 Years Date of : 2000 Reason For Visit: UC - Ankle/Foot/Toe Pain or Swelling; LEFT FOOT PAIN Arrival Time: 04/05/2021 16:12:07 Primary Care Physician: Flex Wang DO Attending Physician: Nirav Nunez Comment: Visit Diagnosis: Diagnoses This Visit Sprain of left foot (S93.602A) UC - Ankle/Foot/Toe Pain or Swelling ([id number]) If you received any narcotics, sedation, or [...] documents With: Address: When: JEFF JESUS [address] [address] Business (1) , only if needed With: Address: When: Flex Wang [address] [facility], [place] [address] Business (1) Within 3 to 5 days Medication Information: The exam and treatment you received today in the [facility] were for an urgent problem and are not intended as complete care. It is important for you to follow up with a doctor, nurse practitioner, or physician?s pharmacy innovation assistant for ongoing care. If your symptoms [...] so we can reach you if necessary. [facility] has provided you with a complete list of medications post discharge. Please inform your primary care nurse practitioner/provider of your visit and for further instruction [...] are no br (more content not included)... [facility] XR Foot Complete Lefton 03-20 XR [...] Signature): Vishal Fernandez 04/06/21 8:27 am Technologist: NELIDA [facility] Coding Summaryon 08-01-2020 Coding Summary HTMLBase 64 ZlagvydwTYu3fYh+PGhlY WQ+YG6JDEFaT93gmPXjyU 6TZ4uLEI8ORRBTXFOIYU6 ZGN6ywWX5RIeyD3ZvshDa AudpxLZkWR26QYq9CZF6k HjuHQycoM0xgSPjZ4y1Qa AuBU68dO91UHdiUPBnItF 3LjZpbjsgbWFy D5npOrQscBMcHsr+PHRhY mxlIHdpZHRoPScxMDAlJy JubVeyYJ7wOt6qGFCkSKR vbGxhcHNlOiBj d9fnHMVvKAfxZW4syGlfU 5XgbIA7GAIuo1o6Dl47sL I+CWQiMXU9cNglTVdkd43 2DnCep9wpACL8 aGSzGYwtPJI3L01vs3G2G KWpCRHlPYP3yHE9vB7mzZ tvrjgkY4MyqGKbZcA5QSF 2aGIjlW3qyXjv ztxylC0cUui+J41MZA3DT GFTEO5JTzo3B2WlFpkgvT I+UR42RZJyXM68wSTtlPN ud7fhrBg4FpZd SODlMCZ7xYgiXVfpd2WaN WCkV94wtDVjg6Q4JAIllE qjhKRqDuPgkOL3zC6jIMa kpgycr7thjenj Iifja9swip80fC21E89fB TveBUGxLMI7VBDuUUPyaH foer7qnN7qTx8+ZHxse0l bp5asxSn0SkSh YXXghzUozZrbHKD1x8ImM e67W4AfjPhsp4RaBfw9ur 90zWYem2S6mOR5AOcbRVF dsM5rJLknOhH6 CHXfSuRckU59zYOeLLqaQ o3xgGzlhKquHY1eNYTdby xfRSNmyW6pSLBfbWBhqKu cGO4oQKWvxnrb e968UhZcRGP5KLRqpJVdE 2NqwN2bRrAnXUIiRADnC7 SogTBqRMijY833HEylBeV 9ZPFsojKtY6Fg FHNcxTthRmX2o0R9Te7Op 9VkgjirZTE3DUymXSMlZa K3YrPaOcF4V0XsCvc3AWY rgNteOE4mW2Zm JVPwgqtaklgymWW0MQCvI JKheS33xPIgGAdyHj7ou9 T1j707UZJmYXCyfL11Yh8 udDogMTBwdCBU sU4mpngqq2mybwevZfVwI KGwOKq0VNa7IPGnyJfbFb IbFXB4ElE6ZSB3eMAytF8 nsKvycedgmN1r Oyc+M17ktM1wCFK7DER1k fabXAQtrgYeJB25MT12T9 RyPjwvdGFibGU+PGRpdiB cqMdgED1iEdNm i2mwn2PvPQnmS4DcIDRvK RuhDhs3JMGoWZN8tTQ8rI 5qQHYrBYtfh0Z8nDK0R8X nvsIyhn8uv0gh QHTeEZnxX47yiCYsp3U5B CYrhGS2HDShhDwhEvClvM 93Oyc+QPXkxQdug1GrAsu lt3ckz7stfYw4 VmDaIKDuomSfkEoySQY9f 9SiOm73E97eMXrkACEvLB RuYMInSJDrzHlpnn0tjD1 wIi8+PGNvbCB3 uCV9wY1cBHEvPtC7DJnyP 820NoJnbOEwUmpbd2aod4 nujDy3YoEpDUHprnGnkKx bZNI9q4CeTf43 V16fZMvoTUKiRSLyACXuW QZbrRmbte1reA5hNp1+PC 4mt4ojiy08pF98nCT+PHR oTPP7hYyzCFdy LRYfnY2lSMrnQwS0JCCyI jQhzR86fXHaTYmqDf3kqU dfrQtlZJ2yPJLjlovhx05 2RbGpl5qiCBDq qUQrHPplWWD5W25am0K8H QVjSPWkGTH5qHS6qU6bfK lnbjogbGVmdDsgdmVydGl bFRmhXBbqG287 IHRvcDsnPlBhdGllbnQgT mArYYo4O6VqVrx9NFOttW jxOR7hqFCbQEprBa0kxMw tvNcyVT6eNUVy uqqmi225QcCzt8fkXLTnz SWgBKapCWD3I34mh4P7YU EaJQVyQNG0yBX8xB3tzSg nbjogbGVmdDsg aeYatWxgAHzpZBmvP265N HRvcDsnPkJpcnRoIERhdG U4GV53ED51aUMna7A3eMT 6A4XsQJBzulqs tzyzdBB3ZLRbRJThrF71Y r9jdLlpUw6jNPLoZVA4GM TvqZTwM0UosF7jOoXqVKU mTOPaF1LuyDNb PFgfR439TGpvZhX2NNTih vHxU3EsYFGabMyxXjG4j1 I6Es1LZ3C3NI64BE09aUB ed9D6bNS6E9Wf EECzcqmcaexvhVM9XEEvT TZjeC91Di5wkDzmNp2hYY FzQTR6OQGgrFLfH8QsyL6 yOiAjMDAwMDAw O5EdoBMqEKriM133IPrzX aW7WCJlsxClP1FyLAXqoG cmWcW2h1E7Tn6MQMe0PJ4 0AF79mDOyj8Y3 cLR3S2OyGXXwqudsuesup GO1MQZfWTCgxZ44Jb3imX opYc2qDSDbQUV1CHVtnTP kE0BkwI8mFvGl NIXeJQYpJ2NuvTBrPIkmC 591ZIrkOiG5AAWtxyHfT5 XjSZSzfNmxRnY1n0C3Tw1 VZCErIC23VPD4 gQK2IC40DU85Y3IuNiaqf GFibGU+PHRhYmxlIHdpZH RoPScxMDAlJyBzdHlsZT0 nVs5xQGYjRVBj vQknyJFeIvAkm9qpWURdH GrmLH5uiYpyC8OsoGK7JH Xib4t2Gj94Q60pV8TxxBW +WIDqzJQ6eKP0 rF7eIkJwCkY4GCtoZ490F qLtmWIyFnvfz7lhs3oqyT g1BxT7VXYhadAzbXitKRO 6m8JfDl73J85l IHdpZHRoPSIxNSUiIHZhb Lrihc1uaL8pPt4+PGNvbC K3rNZ8rW8vLjXiZyO6YIw eG345DhWtaTXj Yamgm9tta8twoDb8VyZqR SYpvcRowAsyEPD2x0XxBz 31K6TcoKppp9ObQle7rp4 5rLInj2R3eJT1 J7WgTNRiejbvxISiiGreI L7yCLQavegqHFHigQ2xIT BkG0z0VwLqUrI9LXxgY7A irvV4DJDfzIZr MMehOUM3Y41kg4G3QBMvX GQlUTT0yIC0dZ9suHzsnf ogbGVmdDsgdmVydGljYWw yYZzoB035QAJg nLtjUSPvmQ2rVLYspSCvc VolDB9nJPGmxaswUkUOCU REWSwgSEFOTkFIIEdSQUN YOV98GX75kUQp x1M1aWB9A2CjQEOojcnly dgpyLD8OFHkBXEdsG96oK TgXUgpHm7ux3O4w719DAX kQGIeqS74Gz4w sNnuMCDblHHOyY8uosvvr 7vamhjyJrWtECHmHLz1MO s9TZNgzUteZwTqRGF4GdG 3URK2eDFwfU8a uHcqggerbX1nLbr+MDMvM DkvMjAwMTwvdGQ+PHRkIH S4gUblGBluXHEioV5mWTU eY1z0ArNxEtA9 ODcuL3VoVNPypelfCy00x Q0hZjMxOuZ0HMgdZ5Nndu R6YZSsrRZbEKgmBEL4Y56 cc2Y5KXDxGDBq PFS5wFT3wJ9csFhgyqfro GVmdDsgdmVydGljYWwtYW dkP706DTJleRuuHyFuULi aOVNmDQ76VU63 zJZoa0R3lDK3H0IoVKCbn xvticsynGB0PLRqOKCvmK 98kSAnIVrnQe7hd5C2w39 1CQVeXMKomW72 Or2ahFgeXVFejAZDcX3ux kskg6uykxoiVaUoLBRdDG l9APm8KLKiuLrdNqZiQCU 1EoJ8QAX0uWNi mV2hkWoximfeiQ0iEep+R xAVCBvJBZ89HI18bLIbw0 K1sST0D3GrZBMlgfjjdrk riFC5MSHkVNYq bI37gJKsCLuiLr4ef2E4i 926QTYyFPZabB61Ju2edF wsGXStbPKAmU6bxbukt2w vcjogIzAwMDAw AHo8BFm2JQZetGkjLyXbE FA6WeT2NDN2dWJedM8jzE kmtkjgyR3jYeb+Y4D1B4W kPjwvdHI+PC90 MPZhCG47wWYunHIav8pzs Ig8PlSyZBKcASS9kDpuKN ujd0QzOUFzQ52eqMOsv8M 6IGNvbGxhcHNl EmRxwAT8lU0lZMzoqceqd 2spcyzrOjfiy7krxj38rG 18E62sOIaqWBArVXTnRAP qRQWtiCglgm6b zG2bAu3+PKPkpRC1tNY5j Q7bCjCfNzE8NEjhO591Mh FdsCFnRfrcy8grr4nrzMo 9IjIwJSIgdmFs wWloAIE7x6MpIm95V12wL HdpZHRoPSIyMCUiIHZhbG nfww5flI6tJq2+NN7hz2w lkb38wO38kNS+ EXYzFAX4jTlqPOnkKMNgt I6sAZdpBwY2XWToDsYghP 19iLVlIYlrAn7cdCmauCk rJR8dSNSgqszk w552OgFyl6kuAEXoqKNwA SvyYMS7W96df2H6PXIsQC UeLBM7cXR5nN1myFoxcot gbGVmdDsgdmVy xXjpZYvxKYysT341WKJdh WnjCnLvxWPxW7ueocZTRC 1lOjwvdGQ+SOGcOTI6fJa lFUtsKGLkzF2k JULkE7p8IsCkYaM0VThkW 1HquiD6HVDayUJiACYwvH BXhD3mpanqd2fjtxmmUwE hPPEiSMm1QQq7 IGPvgJkoCvHpMTQ7VjX8P IK6xNOkmD6wkYdlmymmbD 9wOyc+RklOOjwvdGQ+PHR vZCB9xMbmSZzl MLNlyG6kVKGmP3h9PiGaE uR0MOvtT2UuwpO7OTXbxZ YmOFUbsDQIrR2flrjip2a vcjogIzAwMDAw UPy2GVr9UPPtzMwdAlUwR PN1QcO6RZO7wVUzgQ1ggF uepokigO8dDui+TVJOOjw vdGQ+PHRkIHN0 kDevGYobOQJsaE0dXRUbB 5i3CiZiClZ1KRpjY1Dnfq N9JYXceRSeKBRlrJXRsK9 jnjakf4ygfpwp DvRlZEZnGAh4KIo9VFUgj WxjQlTrCQV2SjO6ICM7yQ LdnG4tnXxnycwlbS8tKuq +ZGQ9NWU4GG32 ME75I9CxKhiolXOisWW+P HRhYmxlIHdpZHRoPScxMD XiGeHwyKobBT4eHe0mUHF yLWNvbGxhcHNl OiB (more content not included)... Normal [facility] C Throaton 07-31-2020 C Throat Ordered by Discern. Normal throat regi isolated No pathogens isolated Normal [facility] Comment on above: Performed By: #### [id number] ####[facility] (DEFAULT)[address] [place] [address] ED Clinical Summaryon 2020 ED Clinical Summary [facility] ? Urgent Care [address] [place] [address] Clinical Summary PERSON INFORMATION Name: LEIGH MONTOYA Age: 20 Years Sex: FEMALE : 2000 MRN: Acct#: Visit Reason: UC - Sore Throat; THROAT PAIN Arrival: 07/29/2020 09:44:22 Discharge: 07/29/2020 10:23:00 LOS: 000 00:39 Check In: 07/29/2020 09:44:22 Checkout: 07/29/2020 10:23:00 Address: [address] [place] [address] PCP: Flex Wang DO PROVIDER INFORMATION Provider [...] Negative . Impression and Plan Diagnosis Pharyngitis (TNS59-LQ J02.9, Discharge, Medical) Plan Condition: Stable. Disposition: Discharged: Time 07/29/2020 10:17:00 (more content not included)... Normal [facility] ED Note - Provideron 021 ED [...] Negative . Impression and Plan Diagnosis Pharyngitis (ANH45-AD J02.9, Discharge, Medical) Plan Condition: Stable. Disposition: Discharged: Time 07/29/2020 10:17:00, to home. Patient was given the following educational materials: Pharyngitis, Vhfp-hx-Npny, Pharyngitis, Tmkl-zw-Uqcg. Follow up with: Flex Wang Within 2 [...] on: 07/29/2020 10:20 EST] Patricia Meeks PA-C [facility] ED Patient Summaryon 021 ED Patient Summary [facility] ? Urgent Care [address] [place] [id number] PATIENT DISCHARGE INSTRUCTIONS Patient Information Name: LEIGH MONTOYA Age: 20 Years Date of : 2000 Reason For Visit: UC - Sore Throat; THROAT PAIN Arrival Time: 07/29/2020 09:44:22 Primary Care Physician: Flex Wang DO Attending Physician: Patricia Meeks PA-C Comment: Patient Education With: Address: When: Flex Wang [address], [address] [place] [id number] Business (1) Within 2 to 4 days [...] Follow these instructions at home: ? Take nflk-feu-hyzxnel and prescription medicines only as told by [...] 10/22/2008 Document Revised: 04/18/2018 Document Reviewed: 06/11/2017 [employer] Patient Education ? 2020 [employer]. Medication Information: The exam and treatment you received today in the [facility] Emergency Department were for an urgent problem and are not intended as complete care. It is important for you to follow up with a doctor, nurse practitioner, or physician?s pharmacy innovation assistant for ongoing care. If your symptoms [...] so we can reach you if necessary. [facility] Emergency Department has provided you with a complete list of medications post discharge. Please inform your primary care nurse practitioner/provider of your visit and for further instruction [...] Throat (C11 (more content not included)... Normal [facility] Strep Aon 07-29-2020 Strep procedure control Pass Normal [facility] Comment on above: Performed By: #### [id number] ####[facility] (DEFAULT)[address] [place] [id number] Streptococcus A Negative Normal Negative [facility] Comment on above: Performed By: #### 6 [id number], [id number] ####[facility] (DEFAULT)[address] [place] [address] Urgent Care Recordon 021 Urgent Care Record [facility] ? Urgent Care [address] [place] [address] PATIENT DISCHARGE INSTRUCTIONS Patient Information Name: LEIGH MONTOYA Age: 20 Years Date of : 2000 Reason For Visit: UC - Sore Throat; THROAT PAIN Arrival Time: 07/29/2020 09:44:22 Primary Care Physician: Flex Wang DO Attending Physician: Patricia Meeks PA-C Comment: Visit Diagnosis: Diagnoses This Visit Pharyngitis (J02.9) UC - Sore Throat ([id number]) If you received any narcotics, sedation, or [...] With: Address: When: Flex Wang [address], [address] [place] [id number] Business (1) Within 2 to 4 days [...] and treatment you received today in the [facility] were for an urgent problem and are not intended as complete care. It is important for you to follow up with a doctor, nurse practitioner, or physician?s pharmacy innovation assistant for ongoing care. If your symptoms [...] so we can reach you if necessary. [facility] Urgent [facility] has provided you with a complete list of medications post discharge. Please inform your primary care nurse practitioner/provider of your visit and for further instruction [...] Follow these instructions at home: ? Take luwh-kto-bfjsjih and prescription medicines only as told by [...] help righ (more content not included)... Normal [facility] Coding Summaryon 06-27-2020 Coding Summary CODING DATE: 06/27/2020 [facility] STATUS: Home PAYOR: Commercial Insurance [...] Nano Padilla Date Saved: 06/27/2020 12:37 pm [facility] ED Clinical Summaryon 2020 ED Clinical Summary [facility] ? Urgent Care [address] [place] [address] Clinical Summary PERSON INFORMATION Name: LEIGH MONTOYA Age: 19 Years Sex: FEMALE : 2000 MRN: Acct#: Visit Reason: UC - Ear Pain; UC - Ear Pain; RIGHT EAR PAIN Arrival: 06/18/2020 15:00:59 Discharge: 06/18/2020 15:27:00 LOS: 000 00:27 Check In: 06/18/2020 15:00:59 Checkout: 06/18/2020 15:27:00 Address: [address] [place] [address] PCP: Flex Wang DO PROVIDER INFORMATION Provider Role Assigned Unassigned Monica Dunn ARTIFICIAL BREAST FABRICATOR Nurse 06/18/2020 15:03:15 Marv Shannon ED PA 06/18/2020 15:03:24 VITALS INFORMATION Vital Sign Triage Latest Temperature Tympanic Temperature Temporal Artery Pulse Rate O2 Sat 98 % 98 % Respiratory Rate Blood Pressure /78 mmHg /78 mmHg MEDICAL INFORMATION Medications Given: Allergy Information: sulfamethoxazole; ibuprofen PHYSICIAN DOCUMENTATION DISCHARGE INFORMATION: Discharge Disposition: Home Discharge Location: Home PATIENT EDUCATION INFORMATION Instructions: Otitis Media, Adult, Agrn-wz-Dfxf Follow-Up: With: Address: When: Flex Wang [address], [place] [address] Business (1) Comments: Begin on the amoxicillin-clavulana te antibiotic take every 12 hours for the next 10 days Follow-up with your primary care physician in 3-5 days for reevaluation, sooner if any worsening symptoms DIAGNOSIS: Otitis media, right Patient Understands: Yes - Patient/family/caregi nela verbalizes understanding of instructions given Comment: [facility] ED Patient Summaryon 021 ED Patient Summary [facility] ? Urgent Care [address] [place] [address] PATIENT DISCHARGE INSTRUCTIONS Patient Information Name: LEIGH MONTOYA Age: 19 Years Date of : 2000 Reason For Visit: UC - Ear Pain; UC - Ear Pain; RIGHT EAR PAIN Arrival Time: 06/18/2020 15:00:59 Primary Care Physician: Flex Wang DO Attending Physician: Marv Shannon Comment: Patient Education With: Address: When: Flex Wang [address], [address] [place] [phone] Business (1) Comments: Begin on the amoxicillin-clavulana [...] Follow these instructions at home: ? Take ekdl-mor-xgogpbn and prescription medicines only as told by [...] 10/22/2008 Document Revised: 04/18/2018 Document Reviewed: 05/27/2017 [employer] Patient Education ? 2019 [employer]. Medication Information: The exam and treatment you received today in the [facility] Emergency Department were for an urgent problem and are not intended as complete care. It is important for you to follow up with a doctor, nurse practitioner, or physician?s pharmacy innovation assistant for ongoing care. If your symptoms [...] so we can reach you if necessary. [facility] Emergency Department has provided you with a complete list of medications post discharge. Please inform your primary care nurse practitioner/provider of your visit and for further instruction on these medications. Any specific questions regarding your chronic medications and dosages should be discussed with your primary care physician(s) and/or pharmacist. New Medications [facility], [address] [place] [phone], [phone] amoxicillin-clavulana te (Augmentin 500 mg-125 mg oral [...] media, right (H66.91) UC - Ear Pain ([id number]) UC - Ear Pain ([id number]) If you received any narcotics, sedation, or any other medication that causes drowsiness for the next 24 hours, unless otherwise directed: ? Do not drive a car. ? Do not operate machinery such as power tools, lawn mowers, drills, sewing machines, or stoves ? Avoid alcoholic beverages and drugs for allergies, n (more content not included)... Normal [facility] Urgent Care Note- Provideron 06-18-2020 Urgent [...] Impression and Plan Diagnosis Otitis media, right (NOW57-MH H66.91, Discharge, Medical) Plan Prescriptions: [facility] prescriptions Pharmacy: Augmentin 500 mg-125 mg oral tablet (Prescribe): 1 tab(s), PO, q12hr, for 10 day(s), 20 tab(s), 0 Refill(s). Patient was given the following educational materials: Otitis Media, Adult, Dmaq-cg-Gxhu. Follow up with: Flex Wang Begin on the amoxicillin-clavulana te antibiotic take every 12 hours for the next 10 days Follow-up with your primary care physician in 3-5 days for reevaluation, sooner if any worsening symptoms. Counseled: Patient, Regarding diagnosis, Regarding diagnostic results, Regarding treatment plan, Regarding prescription, Patient indicated understanding of instructions. Normal [facility] Urgent Care Recordon 021 Urgent Care Record [facility] ? Urgent Care [address] [place] [id number] PATIENT DISCHARGE INSTRUCTIONS Patient Information Name: LEIGH MONTOYA Age: 19 Years Date of : 2000 Reason For Visit: UC - Ear Pain; UC - Ear Pain; RIGHT EAR PAIN Arrival Time: 06/18/2020 15:00:59 Primary Care Physician: Flex Wang DO Attending Physician: Marv Shannon Comment: Visit Diagnosis: Diagnoses This Visit Otitis media, right (H66.91) UC - Ear Pain ([id number]) UC - Ear Pain ([id number]) If you received any narcotics, sedation, or [...] With: Address: When: Flex Wang [address] [facility] [place] [address] Business (1) Comments: Begin on the amoxicillin-clavulana te antibiotic take every 12 hours for the next 10 days Follow-up with your primary care physician in 3-5 days for reevaluation, sooner if any worsening symptoms Medication Information: The exam and treatment you received today in the [facility] were for an urgent problem and are not intended as complete care. It is important for you to follow up with a doctor, nurse practitioner, or physician?s pharmacy innovation assistant for ongoing care. If your symptoms [...] so we can reach you if necessary. [facility] Urgent Care has provided you with a complete list of medications post discharge. Please inform your primary care nurse practitioner/provider of your visit and for further instruction on these medications. Any specific questions regarding your chronic medications and dosages should be discussed with your primary care physician(s) and/or pharmacist. New Medications [facility], [address] [place], [place] [id number], [phone] amoxicillin-clavulana te (Augmentin 500 mg-125 mg oral [...] Follow these instructions at home: ? Take olks-kaz-ugjmrjj and prescription medicines only as told by [...] (paralyzed). ? You (more content not included)... [facility] Consent Formson 04-28-2020 Consent Forms [id number] .[facility] 04-28-2020 Provider Orders [id number] .00[facility] Coding Summaryon 04-25-2020 Coding Summary CODING DATE: 04/25/2020 [facility] STATUS: Home PAYOR: Commercial Insurance [...] Nano Padilla Date Saved: 04/25/2020 02:38 pm [facility] .QC Respiratory Panel 2.1 (B ioFire)on 04-22-2020 Internal Control-Resp Panel 2.1(BioFire) Pass [facility] Comment on above: Order Comment: Order ed by Holley.[[id number]] Performed By: #### 6 [id number], [id number] ####[facility] (DEFAULT)[address] [place] [address] Respiratory Panel 2.1 (BioFi re)on 04-22-2020 Adenovirus -BioFire Not detected Normal Not Detected [facility] Comment on above: Performed By: #### 6 [id number], [id number] ####[facility] (DEFAULT)[address] [place] [address] Bordetella parapertussis -BioFire Not detected Normal Not Detected [facility] Comment on above: Performed By: #### 6 [id number], [id number] ####[facility] (DEFAULT)[address] [place] [address] Bordetella pertussis -BioFire Not detected Normal Not Detected [facility] Comment on above: Performed By: #### 6 [id number], [id number] ####[facility] (DEFAULT)[address] [place] [address] Chlamydia pneumoniae -BioFire Not detected Normal Not Detected [facility] Comment on above: Performed By: #### 6 [id number], [id number] ####[facility] (DEFAULT)[address] [place] [address] Coronavirus 229E (Not COVID-19) -BioFire Not detected Normal Not Detected [facility] Comment on above: Performed By: #### 6 [id number], [id number] ####[facility] (DEFAULT)[address] [place] [address] Coronavirus HKU1 (Not COVID-19) -BioFire Not detected Normal Not Detected [facility] Comment on above: Performed By: #### 6 [id number], [id number] ####[facility] (DEFAULT)[address] [place] [address] Coronavirus NL63 (Not COVID-19) -BioFire Not detected Normal Not Detected [facility] Comment on above: Performed By: #### 6 [id number], [id number] ####[facility] (DEFAULT)[address] [place] [address] Coronavirus OC43 (Not COVID-19) -BioFire Not detected Normal Not Detected [facility] Comment on above: Performed By: #### 6 [id number], [id number] ####[facility] (DEFAULT)[address] [address] Employed in healthcare? No Invalid Interpretation Code [facility] Comment on above: Performed By: #### 6 [id number], [id number] ####[facility] (DEFAULT)[address] [address] Group care resident? No Invalid Interpretation Code [facility] Comment on above: Performed By: #### 6 [id number], [id number] ####[facility] (DEFAULT)[address] [place] [address] Human Metapneumovirus -BioFire Not detected Normal Not Detected [facility] Comment on above: Performed By: #### 6 [id number], [id number] ####[facility] (DEFAULT)[address] [place] [address] Human Rhinovirus/Enterovir us -BioFire Not detected Normal Not Detected [facility] Comment on above: Performed By: #### 6 [id number], [id number] ####[facility] (DEFAULT)[address] [place] [place] [address] In ICU? No Invalid Interpretation Code [facility] Comment on above: Performed By: #### 6 [id number], [id number] ####[facility] (DEFAULT)[address] [place] [address] Influenza A (no subtype) -BioFire Not detected Normal Not Detected [facility] Comment on above: Performed By: #### 6 [id number], [id number] ####[facility] (DEFAULT)[address] [place] [address] Influenza A -BioFire Not detected Normal Not Detected [facility] Comment on above: Performed By: #### 6 [id number], [id number] ####[facility] (DEFAULT)[address] [place] [address] Influenza A H1 -BioFire Not detected Normal Not Detected [facility] Comment on above: Performed By: #### 6 [id number], [id number] ####[facility] (DEFAULT)[address] [place] [address] Influenza A H1-2009 -BioFire Not detected Normal Not Detected [facility] Comment on above: Performed By: #### 6 [id number], [id number] ####[facility] (DEFAULT)[address] [place] [address] Influenza A H3 -BioFire Not detected Normal Not Detected [facility] Comment on above: Performed By: #### 6 [id number], [id number] ####[facility] (DEFAULT)[address] [place] [address] Influenza B -BioFire Not detected Normal Not Detected [facility] Comment on above: Performed By: #### 6 [id number], [id number] ####[facility] (DEFAULT)[address] [place] [place] [address] Mycoplasma pneumoniae -BioFire Not detected Normal Not Detected [facility] Comment on above: Performed By: #### 6 [id number], [id number] ####[facility] (DEFAULT)[address] [place] [address] Parainfluenza Virus 1 -BioFire Not detected Normal Not Detected [facility] Comment on above: Performed By: #### 6 [id number], [id number] ####[facility] (DEFAULT)[address] [place] [address] Parainfluenza Virus 2 -BioFire Not detected Normal Not Detected [facility] Comment on above: Performed By: #### 6 [id number], [id number] ####[facility] (DEFAULT)[address] [place] [address] Parainfluenza Virus 3 -BioFire Not detected Normal Not Detected [facility] Comment on above: Performed By: #### 6 [id number], [id number] ####[facility] (DEFAULT)[address] [place] [address] Parainfluenza Virus 4 -BioFire Not detected Normal Not Detected [facility] Comment on above: Performed By: #### 6 [id number], [id number] ####[facility] (DEFAULT)[address] [place] [address] status? Not Invalid Interpretation Code [facility] Comment on above: Performed By: #### 6 [id number], [id number] ####[facility] (DEFAULT)[address] [place] [address] Respiratory Syncytial Virus -BioFire Not detected Normal Not Detected [facility] Comment on above: Performed By: #### 6 [id number], [id number] ####[facility] (DEFAULT)[address] [place] [address] SARS-CoV-2 (COVID-19) RNA OZZEI+probe Ql (Unsp spec) Not detected Normal Not Detected [facility] Comment on above: Performed By: #### 6 [id number], [id number] ####[facility] (DEFAULT)[address] [place] [address] SARS-CoV-2 (COVID-19) RNA OZZIE+probe Ql (Unsp spec) No Invalid Interpretation Code [facility] Comment on above: Performed By: #### 6 [id number], [id number] ####[facility] (DEFAULT)[address] [place] [place] [address] Symptomatic as defined by CDC? No Invalid Interpretation Code [facility] Comment on above: Performed By: #### 6 [id number], [id number] ####[facility] (DEFAULT)[address] [place] [address] Vital Signs Date Time Vital Sign Value Performing Clinician Facility 12-06-2021 16:30-0400 Body height 160.02 cm Ezequiel Melo Other [facility] Other 12-06-2021 16:30-0400 Body mass index (BMI) [Ratio] 41.62 kg/m2 Ezequiel Melo Other [facility] Other 12-06-2021 16:30-0400 Body weight 106.6 kg Ezequiel Melo Other [facility] Other 10-11-2021 14:45-0400 Body height 160.02 cm Ezequiel Melo Other [facility] Other 10-11-2021 14:45-0400 Body mass index (BMI) [Ratio] 41.98 kg/m2 Ezequiel Melo Other [facility] Other 10-11-2021 14:45-0400 Body weight 107.5 kg Ezequiel Melo Other [facility] Other 10-11-2021 14:45-0400 Diastolic blood pressure 79 mm[Hg] Ezequiel Melo Other [facility] Other 10-11-2021 14:45-0400 Systolic blood pressure 128 mm[Hg] Ezequiel Melo Other [facility] Other Encounters Encounter Date Encounter Type Care Provider Facility Start: 01-02-2024 End: 01-02-2024 ambulatory YASMINE JAI Not Available Start: 12-17-2023 End: 12-17-2023 ambulatory MIRIAM MARLEEN Not Available Start: 12-03-2023 End: 12-03-2023 ambulatory YASMINE JAI Not Available Start: 11-07-2023 End: 11-07-2023 ambulatory YASMINE JAI Not Available Start: 10-31-2023 End: 10-31-2023 ambulatory YASMINE JAI Not Available Start: 08-12-2023 End: 08-12-2023 ambulatory YASMINE JAI Not Available Start: 08-29-2022 End: 08-29-[address] DOCTOR SUE Facility:[facility] Start: 01-12-2022 End: 01-16-[address] DOCTOR SUE Facility:[facility] Start: 12-06-2021 End: 12-06-2021 ambulatory Ezequiel Melo Other [facility] Other Start: 12-06-2021 Patient encounter procedure Ezequiel Melo [facility] Start: 10-11-2021 End: 10-11-2021 ambulatory Ezequiel Melo Other [facility] Other Start: 10-11-2021 FQ visit new patient Ezequiel Melo [facility] G[facility] Payers Date Payer Category Payer Unknown [id number] 2000 Unknown [id number] 2.16.84 [id number] 2000 Unknown [id number] 2.16.84 [id number] 2000 Unknown [id number] 2.16.84 [id number] 2000 Unknown [id number] 2.16.84 [id number] 2000 Unknown [id number] 2.16.84 [id number] 2000 Unknown [id number] 2.16.84 [id number] 2000 Unknown [id number] 2.16.84 [id number] 2000 Unknown [id number] 2.16.84 [id number] 1959 Unknown [id number] Medicaid [id number] 2. [id number] Social History Date Type Detail Facility Sex Assigned At [facility] Other Evaluation note 12-06-2021 Note Date & Type Note Facility 12-06-2021 Evaluation note Encounter Date Diagnosis Assessment Notes Nov, Dyspepsia (ICD-10 - K30) patient states does have some bloating in the left center she does have pain noted. patient is advised that we can start levsin and refer to discharging machine operator for food testing. [facility] Other Evaluation note 05-25-2022 Note Date & Type Note Facility 10-11-2021 Evaluation note Encounter Date Diagnosis Assessment Notes September, Bloating (ICD-10 - R14.0) September, Dyspepsia (ICD-10 - K30) September, Abdominal pain (ICD-10 - R10.9) [facility] Other Clinical Note 04-05-2021 Note Date & [...] This may take several hours. ? Take tfsj-nxd-gornnkv and prescription medicines only as told by your health care provider. ? When you can walk without pain, wear supportive shoes that have stiff soles. Do not wear flip-flops, and do not walk barefoot. ? Keep all follow-up visits as told by your health care provider. This is important. Contact a health care provide (more content not included)... [facility] Clinical Note 07-29-2020 Note Date & Type Note Facility 07-29-2020 Note Patient Education Ma terials Follows:Disease Pharyngitis Pharyngitis is a sore throat (pharynx). This is when there is redness, pain, and swelling in your throat. Most of the time, this condition gets better on its own. In some cases, you may need medicine. Follow these instructions at home: ? Take wwtz-jfv-aeiczet and prescription medicines only as told by [...] 10/22/2008 Document Revised: 04/18/2018 Document Reviewed: 06/11/2017 [employer] Patient Education ? 2019 [employer]. [facility] Clinical Note 06-18-2020 Note Date & Type Note Facility 06-18-2020 Note Patient Education Ma terials Follows: Otitis Media, Adult Otitis media means that the middle ear is red and swollen (inflamed) and full of fluid. The condition usually goes away on its own. Follow these instructions at home: ? Take gsqx-xmh-fwgmthz and prescription medicines only as told by [...] 10/22/2008 Document Revised: 04/18/2018 Document Reviewed: 05/27/2017 [employer] Patient Education ? 2019 [employer] [facility]. [facility] Clinical Note 04-22-2020 Note Date & Type Note Facility 04-22-2020 Note Nasal swab performed without complication. Patient tolerated well. Education given. Patient verbalized understanding. [Electronically Signed on: 04/22/2020 15:05 EST] Miri Nuñez RN [Verified on: 04/22/2020 15:05 EST] Miri Nuñez RN [facility] History general Narrative - Reported Note Date & Type Note Facility History general Narrative - Reported Type Medical History PCOS Medical History Endometriosis Surgical History laparoscopy - endometriosis [facility] Other Reason for referral (narrative) Note Date [...] is able to get in before this. [facility] Other Reason for visit Narrative Note Date & Type Note Facility Reason for visit Narrative PATIENT HERE AT THE REQUEST OF DR. VERGARA FOR EVALUATION & TREATMENT OF BLOATING [facility] Other Reason for visit Narrative Note Date [...] of the side effects that were listed. [facility] Other Summary Purpose Family History No Family History Records FoundNo Family History Records FoundNo Family History Records FoundNo Family History Records Found Advance Directives No Advanced Directives Records FoundNo Advanced Directives Records FoundNo Advanced Directives Records FoundNo Advanced Directives Records Found Additional Source Comments INFORMATION SOURCE (unrecogn ized section and content) DATE CREATED AUTHOR 04/21/2021 [facility] DATE CREATED AUTHOR AUTHOR'S ORGANIZ ATION 11/08/2021 [facility] DATE CREATED AUTHOR AUTHOR'S ORGANIZ ATION 09/06/2022 [facility] DATE CREATED AUTHOR AUTHOR'S ORGANIZ ATION 01/04/2024 [facility] FOR RECORDS PERTAINING TO PATIENTS WHO ARE [...] BE BASED ON THE PRIMARY CLINICAL RECORDS. [employer] provides no warranty or guarantee of the accuracy or completeness of information in this document.
[2024-01-16 16:38] LABS: INR 0.97; Partial Thromboplastin Time 30.2 sec (22.3-36.2); Prothrombin Time 10.3 sec (9.0-11.6)
[2024-01-16 17:18] LABS: Basophils Percent Auto 0.3 % (0.2-2.0); Eosinophils Absolute Auto 0.1 10^3/uL (0.0-0.7); Eosinophils Percent Auto 1.1 % (0.9-7.0); Hematocrit 32.8 % (36.0-48.0); Hemoglobin 10.6 g/dL (12.0-16.0); Immature Granulocytes Abs Auto 0.05 10^3/uL (0.00-0.03); Immature Granulocytes Pct Auto 0.7 % (0.0-0.5); Lymphocytes Absolute Auto 1.7 10^3/uL (1.2-3.8); Mean Corpuscular HGB Conc 32.3 g/dL (29.9-35.2); Mean Corpuscular Hemoglobin 28.4 pg (26.7-34.0); Mean Corpuscular Volume 87.9 fL (81.0-99.0); Mean Platelet Volume 10.6 fL (9.5-13.5); Monocytes Absolute Auto 0.6 10^3/uL (0.3-0.8); Monocytes Percent Auto 8.3 % (1.7-12.0); Neutrophils Absolute Auto 5.1 10^3/uL (1.4-6.5); Neutrophils Percent Auto 66.6 % (43.0-75.0); Platelet Count 241 10^3/uL (150-450); Red Blood Count 3.73 10^6/uL (4.20-5.40); Red Cell Distribution Width 14.5 % (11.0-15.0); White Blood Count 7.6 10^3/uL (4.0-11.0)
[2024-01-16 17:46] LABS: Aspartate Amino Transferase 12 U/L (15-37); Estimated GFR (African America >60 (>=60); Estimated GFR (Non-African Ame >60 (>=60); Lactate Dehydrogenase 153 U/L (81-234); Uric Acid 2.9 mg/dL (2.6-6.0)
== END 2024-01-16 16:05 | disposition home or self-care (01) ==
LOC: LAB 16:06
PROVIDERS: Visit Provider Obstetrics & Gynecology
DX: O13.9 Gestational [pregnancy-induced] hypertension without significant proteinuria, unspecified trimester (principal)
CPT/HCPCS: 36415; 82565; 83615; 84450; 84520; 84550; 85025; 85610; 85730

== ENCOUNTER 2024-01-19 11:58 | Outpatient (REF) | payer OTHER, SELFPAY ==
--- OUTSIDE RECORDS SUMMARY | 2024-01-19 12:03 | XMS_ITS | CCD ---
Author Organization [facility] Care Team Providers Care Turpentiner Name Role Phone Ezequiel Melo Unavailable [facility], DR MIRANDA Primary Care Unavailable JAI ., DR UNDERWOOD Admitting Unavailable JAI ., DR UNDERWOOD Consulting Unavailable JAI ., DR UNDERWOOD Attending [facility]available [facility] MIRANDA Primary Care Unavailable JAI ., DR UNDERWOOD Admitting Unavailable JAI ., DR UNDERWOOD Consulting Unavailable JAI ., DR UNDERWOOD Attending Unavailable YASMINE VERGARA Attending Unavailable YASMINE VERGARA Attending Unavailable YASMINE VERGARA Attending Unavailable MIRIAM HAWLEY Attending Unavailable YASMINE VERGARA Attending Unavailable Allergies Allergy Classification Reported Allergen(s) Allergy Type Date of Onset Reaction(s) Facility (2 sources) [facility] Other (1 source) Sulfonamides (Antibiotic) Drug allergy (disorder) [facility] Medications Current Medications Medication Drug [...] to 29on 09-06-2022 . . Normal [facility] Comment on above: Performed By: #### 4 [id number] #### [facility] [address] [place] [address] Dr. Dat Wesley Age Gdln ACOG Testing 21-[address] [facility] Comment on above: Performed By: #### 4 [id number] #### [facility] [address] [place] [address] Dr. Dat Wesley DIAGNOSIS: Comment Normal [facility] Comment on above: Result Comment: NEGA TIVE FOR INTRAEPITHELIAL LESION OR MALIGNANCY. Performed By: #### 4 [id number] #### [facility] [address] [place] [address] Dr. Dat Wesley Methodology: Comment [facility] Comment on above: Result Comment: This liquid based ThinPrep(R) pap test was screened with the use of an image guided system. Performed By: #### 4 [id number] #### [facility] [address] [place] [address] Dr. Dat Wesley Note: Comment [facility] Comment on above: Result Comment: The Pap smear is a screening test designed to aid in the detection of premalignant and malignant conditions of the uterine cervix. It is not a diagnostic procedure and should not be used as the sole means of detecting cervical cancer. Both false-positive and false-negative reports do occur. . Performed By: #### 4 [id number] #### [facility] [address] [place] [address] Dr. Dat Wesley Performed by: Comment Normal [facility] Comment on above: Result Comment: Singh Sanders Security Assurance Analyst (ASCP) Performed By: #### 4 [id number] #### [facility] [address] [place] [address] Dr. Dat Wesley Reflex Criteria: Comment [facility] Comment on above: Result Comment: The HPV DNA reflex criteria were not met with this specimen result therefore, no HPV testing was performed. . Performed By: #### 4 [id number] #### [facility] [address] [place] [address] Dr. Dat Wesley Specimen adequacy: Comment Normal [facility] Comment on above: Result Comment: Sati sfactory for evaluation. Endocervical and/or squamous metaplastic cells (endocervical component) are present. Performed By: #### 4 [id number] #### [facility] [address] [place] [address] Dr. Dat Wesley HCG,Urineon 11-03-2021 Beta HCG ( test) Ql (U) Negative Normal [facility] Comment on above: Result Comment: PERF ORMED BY: [address] [place] [id number] PATHOLOGIST SPECIAL PROJECTS COORDINATOR SULTANA PETE M.D. Performed By: #### U HCG #### [place] [id number] [facility] Charles 11-03-2021 L - -------- Specimen: [id number] Received: 11/03/21 Status: AYDIN Alex Num: [id number] Spec Type: Surgical Subm Dr: Ezequiel Melo MD Tissues: A Small Intestine - Biopsy/Polyp (SMALL BOWEL) Procedures: HE Stain/2, Gross/Micro L4 -------- Patient Age/Sex Location Account Attending Physician -------- Leigh Singh [id number] Ezequiel Melo MD -------- SPEC NUM: [id number] RECD: 11/03/21 STATUS: AYDIN JOHNSON NUM: [id number] PAPI: 11/03/21 [facility] DR: Ezequiel Melo MD ENTERED: 11/03/21 [facility] DR: SPEC TYPE: Surgical DEPT: S [...] is performed. This case is interpreted at [facility], [place], [place] -------- Specimen: Received: 11/03/21 Status: RAFAELChino Johnson Num: [id number] Spec Type: Surgical Subm Dr: Ezequiel Melo MD Tissues: A Small Intestine - Biopsy/Polyp (SMALL BOWEL) Procedures: HE Stain/2, Gross/Micro L4 -------- Patient: Leigh Singh [id number] (Continued) -------- Specimen: [id number] Received: 11/03/21 (Continued) Signed (signature on file) Gabe Ellis MD 11/06/21 1703 -------- Specimen: [id number] Received: 11/03/21 Status: RAFAELChino Johnson Num: [id number] Spec Type: Surgical Subm Dr: Ezequiel Melo MD Tissues: A Small Intestine - Biopsy/Polyp (SMALL BOWEL) Procedures: HE Stain/2, Gross/Micro L4 -------- Patient: Leigh Singh [id number] (Continued) -------- Specimen: Received: 11/03/21 (Continued) CPT Codes 76189 -------- -------- Specimen: Received: 11/03/21 Status: AYDIN Johnson Num: [id number] Spec Type: Surgical Subm Dr: Ezequiel Melo MD Tissues: A Small Intestine - Biopsy/Polyp (SMALL BOWEL) Procedures: MARIANN Stain/2, Gross/Micro L4 -------- Patient: FranciscoLeigh Craig [id number] (Continued) -------- Signed (signature on file) Gabe Ellis MD 11/06/21 1703 Normal [facility] COVID-19 [facility]ATION[facility] 11-01-2021 SARS-CoV-2 (COVID-19) RNA OZZIE+probe Ql (Unsp spec) Negative Normal Negative [facility] Comment on above: Order Comment: Healt hcare Worker?: N Result Comment: Testing for SARS-CoV-2 by RT-PCR This test was developed and its performance characteristics determined by [employer] and validated at the [facility]. This test has not been FDA [...] is terminated or revoked sooner. PERFORMED BY: [address] [place] [address] PATHOLOGIST SPECIAL PROJECTS COORDINATOR SULTANA PETE M.D. Performed By: #### C OVID 19 [facility] #### [address] Coding Summaryon 04-19-2021 Coding Summary HTMLBase 64 PsndmxogGCg8oNi+PGhlY WQ+VA5WTJFuT13djYCpqH 0WX4lEVX5TVUAMTAJTML5 FWD0eyDH0XDulY1UyffJj MozzyQKwWW96PEr5TRZ5m XcvBOgfgJ3ldYEmI7w6Pw UrNC14bA50GAgcKAMwJkM 3LjZpbjsgbWFy C5iiNyChqTAnLgo+PHRhY mxlIHdpZHRoPScxMDAlJy XiyCopXW6yTf7kCPQtOBG vbGxhcHNlOiBj c7ruELKwHHonIU0uaNawB 4SouMG4QYFqb0i0Hu99eG I+INTnVTP8xGquMHwcm76 6XrZcl6ggMZW6 oIChOQonJPV6P43gp6U3Q NGmRIHcXDI1yMC6jN6zxP vkwywpI3LgxIOyJnT5UJJ 8cFCxdA8cvPol fgrzpR3xFzl+I53EWC5YD LDAYD6ZJjs9Y1IgThoinQ I+WI88KMVpGS74eVSqmHP px4marTr8LkIz BASbEWA7qJomPAimk8MxE XDvO46wtMMxa4Y7NEKykQ ppiPMdHbUrmGK6iF2oZEr zjyodx2mwemup Zziwb7umxp53xS93L78tG XwfJRNgXZU2APEwPFTdqR leix6obV5kWb7+QNvem2w so3kzoPn1EiTu POPxngFkbXteIOK6o9AdD j01J4SahWdyb1RoXdj6du 30gEVxt1F4oUQ9LPhjONL czK4lJXypOjW4 CYPaRdRgxQ64bDQsOCdnH i0voMiccAnsZO7dBPGqbv ocUKFcwR7bJRFrvOSczYp tZK8wLCHwtbie o554VyHvEIB4SPTcqMSiQ 9HphF9cDaHaRUDrDUVeQ1 DqbFRbKNghX802BIhpOjM 0NEOcpvIiE0Be GRRrwAklOeQ7y9D4Ib6On 3XhehwqSJQ2UIksSENqFb MeDrNuOxN9W2FqNpb6NKA atIbpOU6hJ0Jl WTWpqsqelwplwSC6OZPuW XPjgE48eKHnMSafSn2fx2 D4o902JMRwSZAcsV26Ug3 udDogMTBwdCBU xS0srcmbq8uetwgxYfKhF ISfWYh0LVm8MLKkvVgmGc KvHIA1MsI5RIL6jAPnwY1 igCqqtbsmbD8g Oyc+Q09ioN2zVAR7BPY7j ynaZHLnoeSpMO80GF74K3 RyPjwvdGFibGU+PGRpdiB tiIlkSO3cRzJo g8dpn3JwMUgiV0PjCAQqP OrrDti1BPZiJNI6iKP9zC 5mFLXdHBmea7Q0aAM0O9O qvcOdvv3dc5cu XSNhKBqjG56umSOdj5Y4P YVovTC6ZSIqwPwhCsLjiJ 93Oyc+PSCbgTjle8IgWyn qp3yto9tytUe3 LgQkAIViujXjtUogLZJ4z 1ZqPd88R60cNZgwGZOaPH WiFNDtXEFlfJomwb9plC8 wIi8+PGNvbCB3 cKP2oP7xGLFoYpC4YMepK 195DlMfsGVwRgvmw1wka6 hdoKy8DgWiGJGuaeHzrJf fETK2e4QsNk69 G74xGUapZWIoHAFcIFPzX VOuwJrjgo3nfC6rUw5+PC 7tg6bqdj54wT15oNF+PHR mSMJ4fRchSFga UZPmrF7xBAjdWeO8TMTxK uNwgG97xQRcMPtwBf8apQ ohcSapSQ2aWNNfhigyw12 8HzDkz3opBQGs nDFuNAhyPBJ3G87yz4F5X PSjZKMxOKF2zRX5kN9vvX lnbjogbGVmdDsgdmVydGl iPQvfWEzdL276 IHRvcDsnPlBhdGllbnQgT cUsGKi1R2KuBlc2LXNyxJ nePY6auTKqPSxvHt1atOc qvWpyOL9sDPVq jkczg769TvHnz6veWOUwq SWuUAaqTLH4S85ml2H0AL CtQXMrLTO6iEW6lJ0fjSy nbjogbGVmdDsg eoFxcWudCYfbTTmnJ022V HRvcDsnPkJpcnRoIERhdG I1VC75EE92jDDqg2G4cBE 0R8QiCHAtqbvo lyosqUR0MWKsOTSplW73Z w4vyEalAj1qPSSmWQQ2EL MvdEVsK7RybS9dStTrLSA hASSmK4KlrDHl JOkwN238VGwhXxD6EFRys jRhJ1JjUUEqxCvgTuU0c4 O6Zi6AE4W0TI68IV60cHH li3I5fCU8L3Fp MVPqrrxitdjjbHN2UNVqU FPkgD72Ep2loZltUd9vGT IgBDV1BWNqrNOdZ2KjkW3 yOiAjMDAwMDAw T6TsyRLnCWmeZ732ZCsdA zQ8EJYcvbGaG2KiFLGhvE jlXtM6y4I4Yv1OCDq8OJ7 6EH08eQVvk2W5 qFP8Q4FyZEBtwhbqabuny MT2HWSzYOPaoT59In3oaW tfJu2sVHFwJQG5SPVhcTN zM2JybB6fCvKo DTYrHZRoA8LivYIwIJxqE 027ZEwkEcM7IBGsvoByM9 YmXYKyyGcsEqD0h3J0Nw2 LJXQfIP94FBT1 yBO9DF65DM34Q3WlTjrio GFibGU+PHRhYmxlIHdpZH RoPScxMDAlJyBzdHlsZT0 tVr8xRWVqWXLg yFpctKUpAaYjq7ryMFKoC UolYL0moTbxQ7FflQP2GH Qrq2b8Lv24D42bT0AzkEP +WSHsbLX4lHE9 jO1fNyBdQdP8FJeoT131A uHawWEvJcmig3wef8nawY a3UlF4PDEnjnGsxRgwTQO 9d9OsQv17Y67k IHdpZHRoPSIxNSUiIHZhb Wacgf2zjO5uQa6+PGNvbC A9aWP5oB7hJmJpCfJ1EFd gO528UvOwdTUd Gaeqy2itc2zqdXz9AxQdG MRhrzDllLgwAWQ0i2RiEs 68O6CrpFhhh4SxGrm8ou2 4tNOgq4C6bTQ2 U0CzKAHiearfhIMwmCoaU N3gWBKyaustOIKomU2qLP SjN9z6DbAwWtK6HYumJ1O uebU5GJJzbNWy ZXuzXJD7L70ci7A3NEFyM RXyLXV1bFR9aO5crUylln ogbGVmdDsgdmVydGljYWw jVSgkW220QSUl wNqrLYYwaN5qGCIfzUYfr GumYG1cIPBfzpscYxDCMC REWSwgSEFOTkFIIEdSQUN YAU24QU15oLCs r2R8bOH2J9FhNIDaaurlr srmuOA5ALBlVHBvhT23yX JtIWqcHj5kn6S5c748SOG sJWHgpI91Sg9w rXdrUFGnaERUxP7yafsak 2djhzofNmLeSRKiRLp3DH c6WIXzuTqeOkCcHAM8QhL 2WBU7nCUkrP7w dFjhmlbmqE3yKmf+MDMvM DkvMjAwMTwvdGQ+PHRkIH I9iJadMCzsMJGwaE6rLOD wZ8j2DaQhJfI3 ERtbX4ZlDMPkzkldAa38b Q7eNxYsAoT3WHpgW6Oyyk V7EEWfkDQoKZzzNSL3O36 kk1Q9LPFqMCEq LXU5eUQ3tJ3sdTpuolqmd GVmdDsgdmVydGljYWwtYW cpO878TFOteWfgUhRgEXr wABQiOI54YA57 yEDfn3Q8hUD7C4EaHUGnz vjkhxmpnKI2BIIeAXTxwA 43kRUlDEpjQo7vh3R8q08 9KARyCZMznC92 Yi0twGqpMWPfqCWGxL5ok qduh6wmixraCePrEEOvPI u4QHw1MDTxyKfyVgMfGLH 8NeJ4XTT2qZMc lY1fnSpcvdryvX9tQhg+R iCGNCxQHJ75SV54oTStr5 O8xNL6V5AqDNQrtotmmom qcNH9PJJiJICe wF68pUJgSWaaAv9ih8A3k 183FQWpGWMelB12Wv3prY nwTSSgzAQCgM4jefgjo0h vcjogIzAwMDAw YRf5IIx7ZQNipVwfUmQrZ XD9QpY5NPJ3uTMjxQ8biI xukizrtO1aPab+B7A6T9L kPjwvdHI+PC90 BAQfIA57hDSqdXDbr3isn Tn0ZwPaMLAkWXM2vJriMV psv0YfKVJhP08unAHzz0K 6IGNvbGxhcHNl JmXomQY6zD6gUVqzmmgyz 5vnmwdxGzovi6cuub58gS 13R04iHGnqWBAuPHPvIHA uSUUgdDlssd2c fA0xFb6+NVRqgXL2aCX0x T1pYoUrHdA5UDxeJ952Lw TloBIzYmrax6fjs2pmrDe 9IjIwJSIgdmFs pAzvQLX9v6CgQn25Y29kP HdpZHRoPSIyMCUiIHZhbG kvnh6wtN1sIz8+ET6kx9x aud62qS11hJG+ VGNoEMZ9tVhiZOykDTNeb Y3eKPpmImJ7ANPjFnUmiH 56zSWnHVksYs6gxFywiSn wTV2wILNhsfyb u322PnJvu0toPKAkzROtI MhxLQC1U60zx8L2DIYiKH WxKMJ8mWV4oL6iaIhvckv gbGVmdDsgdmVy cWplNGzyTWwaO211YYJpp TcpYrQbwIAwB3gqvrCWAC 1lOjwvdGQ+ZSTtXAY5yRt iSMrrCONiyQ9y NIPmL5d3TbHnSkD6YTeyJ 9QslvE4OBFoyOGaITTegX LZtI9ngoxoq2deagdiGnH pRZUxQDo7PVe1 CQFswYktCuCjGXY6GwF7V LY7gANrhV0izQpghlxznH 9wOyc+RklOOjwvdGQ+PHR qXTS6yBoqWKsm OKOumQ4cJCMdP2t7CoGtK vK6CBtpC6IcxvJ9RYKltM BpRIBjtTPWaC6bukiuf4y vcjogIzAwMDAw HUr2PXh1VXElmJjlMhQzA NC9CyR0PFO5xFUhlK7clV pewqbjoL4bUwa+TVJOOjw vdGQ+PHRkIHN0 oBdyIIsuNYRhzG0hGDTpU 6v6XnHeMqN1ZUooX6Zscs R4QELjcUHfIAZgyDAPpY6 rbwjin1odlgoh XiFyXZNqBUk6COc6IHBhb BbeSwObJZL9FpP4EBB6pR GclF6iiDcsqlznhG3hHnd +CDZ2DFQ8WJ78 NN78T0IjFreftNXrlEP+P HRhYmxlIHdpZHRoPScxMD TzNwUxzOydYS8uHl0hQTG yLWNvbGxhcHNl OiB (more content not included)... [facility] Urgent Care Note- Provideron 04-06-2021 Urgent [...] and Plan Diagnosis Sprain of left foot ([id number] S93.602A, Discharge, Medical) Plan Condition: Stable. Disposition: [...] she can arrange follow-up as needed. Normal [facility] ED Clinical Summaryon 2020 ED Clinical Summary [facility] ? Urgent Care [address] [place] [id number] Clinical Summary PERSON INFORMATION Name: LEIGH MONTOYA Age: 20 Years Sex: FEMALE : 2000 MRN: Acct#: Visit Reason: UC - Ankle/Foot/Toe Pain or Swelling; LEFT FOOT PAIN Arrival: 04/05/2021 16:12:07 Discharge: 04/05/2021 17:50:00 LOS: 000 01:38 Check In: 04/05/2021 16:12:07 Checkout: 04/05/2021 17:50:00 Address: [facility] [address] PCP: Flex Wang DO PROVIDER INFORMATION Provider Role Assigned Unassigned Monica Dunn [employer] OFFICER Nurse 04/05/2021 16:14:32 Paul Atkins PA-C ED [...] Sprain Follow-Up: With: Address: When: JEFF Bernabe [employer] [address] [place], [place] [id number] Business (1) , only if needed With: Address: When: Flex Wang [address] [facility] [address] [place] [id number] Business (1) Within 3 to 5 days DIAGNOSIS: Sprain of left foot Patient Understands: Yes - Patient/family/caregi nela verbalizes understanding of instructions given Comment: Normal [facility] ED Patient Summaryon 021 ED Patient Summary [facility] ? Urgent Care [address] [place], [place] [id number] PATIENT DISCHARGE INSTRUCTIONS Patient Information Name: LEIGH MONTOYA Age: 20 Years Date of : 2000 Reason For Visit: UC - Ankle/Foot/Toe Pain or Swelling; LEFT FOOT PAIN Arrival Time: 04/05/2021 16:12:07 Primary Care Physician: Flex Wang DO Attending Physician: Nirav Nunez Comment: Patient Education With: Address: When: JEFF Bernabe Kimble [address] [address] Business (1) , only if needed With: Address: When: Flex Wang [address] [facility], [place] [address] Business (1) Within 3 to [...] ? As (more content not included)... Normal [facility] Recordon 021 Urgent Care Record [facility] ? Urgent Care [address] [facility]. [place], [place] [id number] PATIENT DISCHARGE INSTRUCTIONS Patient Information Name: LEIGH MONTOYA Age: 20 Years Date of : 2000 Reason For Visit: UC - Ankle/Foot/Toe Pain or Swelling; LEFT FOOT PAIN Arrival Time: 04/05/2021 16:12:07 Primary Care Physician: Flex Wang DO Attending Physician: Nirav Nunez Comment: Visit Diagnosis: Diagnoses This Visit Sprain of left foot (S93.602A) UC - Ankle/Foot/Toe Pain or Swelling ([id number]) If you received any narcotics, sedation, or [...] With: Address: When: JEFF JESUS [address] [address] Business (1) , only if needed With: Address: When: Flex Wang [address] [facility], [place] [address] Business (1) Within 3 to 5 days Medication Information: The exam and treatment you received today in the [facility] were for an urgent problem and are not intended as complete care. It is important for you to follow up with a doctor, nurse practitioner, or physician?s coding assistant for ongoing care. If your symptoms [...] so we can reach you if necessary. [facility] has provided you with a complete list of medications post discharge. Please inform your gas reverser/provider of your visit and for further instruction [...] are no br (more content not included)... [facility] XR Foot Complete Lefton 03-20 XR [...] Vishal Fernandez 04/06/21 8:27 am Technologist: NELIDA [facility] Coding Summaryon 08-01-2020 Coding Summary HTMLBase 64 LfdfubmqEQb7ySl+PGhlY WQ+GY9GYYAsV22oiQFnbT 6BK9zIRD2WDYMZHWVPCO1 KWQ9ivJO0LVeyE2RxzjYw YmsplKClKH53YKt3NIZ4m UgkFIevbF2idUYuA4m4Bj FsHF26eR03WAthEOZiClL 3LjZpbjsgbWFy I5ioFyHzrOGlOhm+PHRhY mxlIHdpZHRoPScxMDAlJy FaqJtyLQ5pHa8cZLSvHYA vbGxhcHNlOiBj p6vzVAQxNYiyUE1gbBfwB 2AkvKS5HDTdd8x2Gc37zD I+TDSgJAT9cIyoNRqxu09 6NzHlf9wrECN3 fLIoUEdfEWD9Y74po5J2Q XNdBRSkYMZ3lBN2uT7lyW dbnijiC5YcaCLsWbL8HTF 1bPYzlB4ldBkd xhjdgR5kBae+E19OCD2HP DCXKP7FHwv6O3IwYmcunI I+BG50ENJwLX70jSAbgBU qt1bwlBq2EeUj RWUqEKN6iFavTZlfd2WrU ZBwB01exERdu1S3EDFueH clhRCoEqPfxVK7sW5ePVw bistmn6pmrbiq Zmuxs3fiha85uP57B72cB JnsSMMfVGB4FLHjIBQfuK ikqr1duA8zGh5+JYiio7n ai5vkkUi5VoNy HBQeekAxwBkpXHN6r5PiN d92O6YsfKddc6BbCpv9qh 81jKCzg2H5eNW4IFlqTTJ grW7bAOlmDhN7 GZJdQnNyhZ94eVAhPYywX c8ywQmqdBhvDH9tTMPkjq bzDSMwgK5zZFSbbHObvEy xWE2mAWMtnivg u078AhVgRDW3EBTidDOuE 4GmdJ0nDrQuXKOiSCGjW6 MbdOAgXDchC598IVvqNpD 9JYOnuzHlC0Fq VSAcmReaTgB6q4S2Wz0Xu 3HodukbCXH4FHtuICRmHf F8LqVnZiW5D2VzWvg7IBB adLsyCA5yV1Tv IAPimmbxwnhfwXJ1HCHqK ADvfN62lEWtMWybRe7pm1 P1e708PQJcZKErtW99Dc5 udDogMTBwdCBU nS6ivafgr8jcbilpFeDkS EXyEAd0FAp1SRMclUggRj ExVOJ9VzM4QUI8jYBgbP9 fwMogvcufzA5r Oyc+E30vsA7hEYA8YLD5m yipPGKwqdFiNI43PU25D0 RyPjwvdGFibGU+PGRpdiB ffOxyJF3gAtDc l9yww0EoFHbuR9OcFKUiJ IdzGdj8MPAdINN1gFZ2cN 5tWBPiJWhzn5K4uZQ5Q0N nmjNftj1cg5qq RQHxAPysG26fhMXxe9N1X EJhoJF3ARRikCgwNeLqeA 93Oyc+CQKvoVize4MpYor rl3nwu6rizQx2 QoSqPAEpbyBfmAmpGYM3m 4LwYc65U97uIAtcLDPdXE FeEBFjNLJqeSbtww5wdB2 wIi8+PGNvbCB3 mZM1yD4bOINqZoJ0LMnwC 637YmXngOOaXphue1usx7 isrMw1YzOpXDZxfwLcoCr kOMD2j7NoWu22 P44bDGzxXJQnNOWqNAIoS GPwyPukth8wdK0jTs1+PC 0vm0qrha75cU93zAB+PHR pVNM8yIvcPYde ZIYobF6nKQdzQkP8GGQpF xLodH44fZLjCHbpWq4akM yivCbsYW4tYFSoatpkv92 3XmObh6deCGDu sQHhLUybHRJ8H72sw4W6Z QMaCGRfKWI9dPQ1oK3nmF lnbjogbGVmdDsgdmVydGl bYJulYLaaL794 IHRvcDsnPlBhdGllbnQgT yQvNSj7K4YrUjt8EEPhlV ykXH2mpZPyEWzqGg4flMm vzQxzCC0cCLZr bfjxa246BeCbk1ueESFsp YSjQNqcOKU3V11pj4W8ED GyGIOnXBF4oUS9fH0qsWs nbjogbGVmdDsg saHodVuvUQevUPytC149L HRvcDsnPkJpcnRoIERhdG V9CQ00DZ86cWZjv4N1lVO 4W6CxUSAuomtp suqoxNW5WGNjJEWkdU25V v4uqPgrEa0jWZSgCQM8JC SagHAcK2SavN1aYkJuASF nMJLnI2FakVEb CEqmD751BHqjBjJ6MMAij zJfA0QaQUXdyWvrEfU3v4 E8Jw2WY5G4MQ93KX47rSI ve5U9vOW0O1Qf BZBywbkhqouwcMB8AKGwH BQhcL36Mn6plFdmJo5uUI UlKWG0CMFjmFFuU3PwdB8 yOiAjMDAwMDAw Q9UkzAMnFSvtH246DTwfR eS7VAOqyxOdQ2RvAGXteT oiUaJ9m4J6Tj7QGFj3DJ5 2WU67oYFod5M1 pWF8N6QpJQLbdsrcwsqlp KK1WUVeYPMvpB57Rg2fnD oyWn6xZPYvLTR1CVHdjWM aC8HhgF0qHjRg PKCtYQYeX2GquFCxIKpxZ 799NYclNuG9TLYmlyTsF6 TrYGOqqDkjRvA8t2X0Jk9 XZIVeEC22VAR9 fNO6QP03PC79O3QoTobjj GFibGU+PHRhYmxlIHdpZH RoPScxMDAlJyBzdHlsZT0 qEk1yLVHgRSXf gAaitGNlGkTid8haRYQiD RrwXA1guMryA1AylRR5SH Ojq6y3Dk52S10xF6HoeYM +FYDqfMI9hQC9 qA5gIfEcBvC1VAttV120F yWvuAVcSkkqx3kqq9fupY o2GsT1YAVyelMedMkxQXD 2m0SaDm35Y97s IHdpZHRoPSIxNSUiIHZhb Jkkxp8bqA1eXb6+PGNvbC C3nGA9pV4nFhKjXkB4GGt hF310UjZhyOOe Peiqq7wvy3eakBa1TkCcH TOdraGpaAdfYBV2r4KfFk 57K3SroXwnn8JgVty4cn0 5bRUlu7O1xKO6 U3PlNJAmefusqKVccVrcR N0rWTRtynaqUGMvgR6kCI ZhN4d3BaSiAdP8TXldK1F etcZ9ALVpdCZv ULsaCDQ7A10qk2H7QINtP ONhPBP3oXS9zX2pkEjqfm ogbGVmdDsgdmVydGljYWw eCXygG436SRPz uVzaWPRtyP3kDNShwGHll KgkKP7oHIXipiaiMgXRDI REWSwgSEFOTkFIIEdSQUN QDZ31UD66nWWt h8G1bRC0J4UiBYVuzahco unatKK3KDCqEYRctB74tL NfPWufTm1aa0G5r265KNF tCBSssI40Zy7f dBgxDGDroLOZmB6abaacy 0fvunudWaEnGWYbUGi1JC y0WCVljGlbPhKqQHI8OrO 1YVG6zCZqmY3p pJgrchbzfM8sPto+MDMvM DkvMjAwMTwvdGQ+PHRkIH X3zWgnJDmjXPXllQ0lTMD aQ0h5MxGnPqS2 ZNuvK4GgSOTnvzeaZk90s E4vWaYbWzY2AUnhJ7Bcmq Y0IBBwsGMyCDkoZGZ2S56 kg9X9HGFnDUWr HLO2iND9pZ9xuIvcgujoj GVmdDsgdmVydGljYWwtYW hbH580ANTpkGcpNkCpNSc dLWLsFU12IH41 uHCyj8L9wME5N6JhSABxe ysxqrayuIT6QHKqYPFvqN 18fQLjALkaXf0vh1X3p05 9UHLvDQCdgA01 Iw2dmVhdUWIubAHXyC3yv jryg4aqargtIfHdUHHtLW w7UFn8KTBpjYtvHsYpBDL 4AvB3ZPJ9zPGd dB3mdXeatkzfdO9qDwp+R aNOQVqNNZ84GW57wUZrp4 R6yHU9G2ReENSmmgibaew uyTX7EIXfDYWi pZ35fLIhFFadTu9qp6O5q 075OYRfFGRduW18Ds8asK ooKBLniYYOoW6bwacjp1d vcjogIzAwMDAw WLf7UXw7PAYrzJmgSkWsX LA9IvH2WSR6xZWqoA9rtM vzmklikC1wGbc+O6P2M8J kPjwvdHI+PC90 WTYgXQ17pHNidBDji9pzl Kg2LkHwXXTeNVB6aEuaMK tof7NtULSzF35hoMRls5C 6IGNvbGxhcHNl DfXqtAC5kD0tONojwfgcq 4poqlqpLngor0wcvx42jE 19K14wGCkfORSmVKPpOZB nYRGyuZyquv9m wM0yPn3+KACejUE9qFZ5f V4jAaBxBsZ2VVbpZ216Cf ZzaZAtYzrxh8puq4oawQl 9IjIwJSIgdmFs tYjpLVE0x0UdFn62F86uY HdpZHRoPSIyMCUiIHZhbG fixd9qrD0vFk5+KT6tn8z yhd60hE86nZN+ ZIWeKBX1tWqgNYdsHCExn T3kQErzEiY2SAOuMcBbyO 42bRJbLDzcKa2cnTxqpOr aAX9ySAXdvvch u205ImGip7otSXAefQPrM LxuAVZ4K37yv1R8UPYnRY JjZNV3gGI8fS2dpWxjook gbGVmdDsgdmVy xIomJDioTWtgB737CCRaz EeoDsEyvDBjP1nczmGGDG 1lOjwvdGQ+NFNbOIE0rPe iGIbiADUsqB5l QEQvU1q6EkJbJwG4ZRogM 4UfzmT7MPFihLZxOXTogC FEnK1lfauwl0sfaprmCzU aGNAqQHu6BUv3 QDNyhXyhCvKeHXP3DdG3N CC5bIQgiO7rzGkhbhbazB 9wOyc+RklOOjwvdGQ+PHR yEGX5zWgeTIaz JOBhzN9vQAJpK0i0HnOlD vD5JTdtR5ZxykO6INIsrY YqPZAsvXIRiK5zttwdr9x vcjogIzAwMDAw FOh4WRy0NEPvgQndPbQgF EC3ZdQ0ORY6mVPedI2lvT zskdkgsN4xGjz+TVJOOjw vdGQ+PHRkIHN0 gBzjSEptMYPcyY1qIQDiB 0h3SuYmObH4JAuuG9Huli M5ZRHhpEHkFMLwaSQAxR4 cyqatf5bsgtbo TpFrHJEkMFe5KYa2IXIlj AkdUzUoXSJ8WpZ7BMX5nC WqdV3dmGzdpfbcbN8gJqf +LUU3CFZ6OY37 CN21E2VqOvhhwUQczTI+P HRhYmxlIHdpZHRoPScxMD ObHaCntAsqDR4yYv4vKKH yLWNvbGxhcHNl OiB (more content not included)... Normal [facility] C Throaton 07-31-2020 C Throat Ordered by Discern. Normal throat regi isolated No pathogens isolated Normal [facility] Comment on above: Performed By: #### [id number] ####[facility] (DEFAULT)[address] [place] [address] ED Clinical Summaryon 2020 ED Clinical Summary [facility] ? Urgent Care [address] [place] [address] Clinical Summary PERSON INFORMATION Name: LEIGH MONTOYA Age: 20 Years Sex: FEMALE : 2000 MRN: Acct#: Visit Reason: UC - Sore Throat; THROAT PAIN Arrival: 07/29/2020 09:44:22 Discharge: 07/29/2020 10:23:00 LOS: 000 00:39 Check In: 07/29/2020 09:44:22 Checkout: 07/29/2020 10:23:00 Address: [address] [place] [address] PCP: Flex Wang DO PROVIDER INFORMATION Provider [...] Negative . Impression and Plan Diagnosis Pharyngitis ([id number] J02.9, Discharge, Medical) Plan Condition: Stable. Disposition: Discharged: Time 07/29/2020 10:17:00 (more content not included)... Normal [facility] ED Note - Provideron 021 ED Note [...] Negative . Impression and Plan Diagnosis Pharyngitis ([id number] J02.9, Discharge, Medical) Plan Condition: Stable. Disposition: Discharged: Time 07/29/2020 10:17:00, to home. Patient was given the following educational materials: Pharyngitis, Jxnb-mu-Zaro, Pharyngitis, Ngse-oy-Forh. Follow up with: Flex Wang Within 2 [...] on: 07/29/2020 10:20 EST] Patricia Meeks PA-C [facility] ED Patient Summaryon 021 ED Patient Summary [facility] ? Urgent Care [address] [place] [id number] PATIENT DISCHARGE INSTRUCTIONS Patient Information Name: LEIGH MONTOYA Age: 20 Years Date of : 2000 Reason For Visit: UC - Sore Throat; THROAT PAIN Arrival Time: 07/29/2020 09:44:22 Primary Care Physician: Flex Wang DO Attending Physician: Patricia Meeks PA-C Comment: Patient Education With: Address: When: Flex Wang [address], [address] [place] [id number] Business (1) Within 2 to 4 days [...] Follow these instructions at home: ? Take jssp-sdq-lbudkwp and prescription medicines only as told by [...] 10/22/2008 Document Revised: 04/18/2018 Document Reviewed: 06/11/2017 TV Volume Wizard App Patient Education ? 2020 [employer]. Medication Information: The exam and treatment you received today in the [facility] Emergency Department were for an urgent problem and are not intended as complete care. It is important for you to follow up with a doctor, nurse practitioner, or physician?s coding assistant for ongoing care. If your symptoms [...] so we can reach you if necessary. [facility] Emergency Department has provided you with a complete list of medications post discharge. Please inform your gas reverser/provider of your visit and for further instruction [...] Throat (C11 (more content not included)... Normal [facility] Strep Aon 07-29-2020 Strep procedure control Pass Normal [facility] Comment on above: Performed By: #### [id number] ####[facility] (DEFAULT)[address] [place] [id number] Streptococcus A Negative Normal Negative [facility] Comment on above: Performed By: #### [id number] ####[facility] (DEFAULT)[address] [place] [id number] Urgent Care [facility] 021 Urgent Care Record [facility] ? Urgent Care [address] [place] [address] PATIENT DISCHARGE INSTRUCTIONS Patient Information Name: LEIGH MONTOYA Age: 20 Years Date of : 2000 Reason For Visit: UC - Sore Throat; THROAT PAIN Arrival Time: 07/29/2020 09:44:22 Primary Care Physician: Flex Wang DO Attending Physician: Patricia Meeks PA-C Comment: Visit Diagnosis: Diagnoses This Visit Pharyngitis (J02.9) UC - Sore Throat ([id number]) If you received any narcotics, sedation, or [...] With: Address: When: Flex Wang [address], [address] [place] [id number] Business (1) Within 2 to 4 days [...] and treatment you received today in the [facility] were for an urgent problem and are not intended as complete care. It is important for you to follow up with a doctor, nurse practitioner, or physician?s coding assistant for ongoing care. If your symptoms [...] so we can reach you if necessary. [facility] [place] [facility] has provided you with a complete list of medications post discharge. Please inform your gas reverser/provider of your visit and for further instruction [...] Follow these instructions at home: ? Take emwi-zyj-nayjyoq and prescription medicines only as told by [...] help righ (more content not included)... Normal [facility] Coding Summaryon 06-27-2020 Coding Summary CODING DATE: 06/27/2020 [facility] STATUS: Home PAYOR: Commercial Insurance ADMIT DX: [...] Nano Padilla Date Saved: 06/27/2020 12:37 pm [facility] ED Clinical Summaryon 2020 ED Clinical Summary [facility] ? Urgent Care [address] [place] [address] Clinical Summary PERSON INFORMATION Name: ELIGH MONTOYA Age: 19 Years Sex: FEMALE : 2000 MRN: Acct#: Visit Reason: UC - Ear Pain; UC - Ear Pain; RIGHT EAR PAIN Arrival: 06/18/2020 15:00:59 Discharge: 06/18/2020 15:27:00 LOS: 000 00:27 Check In: 06/18/2020 15:00:59 Checkout: 06/18/2020 15:27:00 Address: [address] [place] [id number] PCP: Flex Wang DO PROVIDER INFORMATION Provider Role Assigned Unassigned Monica Dunn [employer]ER Nurse 06/18/2020 15:03:15 Marv Shannon ED PA 06/18/2020 15:03:24 VITALS INFORMATION Vital Sign Triage Latest Temperature Tympanic Temperature Temporal Artery Pulse Rate O2 Sat 98 % 98 % Respiratory Rate Blood Pressure /78 mmHg /78 mmHg MEDICAL INFORMATION Medications Given: Allergy Information: sulfamethoxazole; ibuprofen PHYSICIAN DOCUMENTATION DISCHARGE INFORMATION: Discharge Disposition: Home Discharge Location: Home PATIENT EDUCATION INFORMATION Instructions: Otitis Media, Adult, Svaa-px-Afjy Follow-Up: With: Address: When: Flex Wang [address], [place] [address] Business (1) Comments: Begin on the amoxicillin-clavulana te antibiotic take every 12 hours for the next 10 days Follow-up with your primary care physician in 3-5 days for reevaluation, sooner if any worsening symptoms DIAGNOSIS: Otitis media, right Patient Understands: Yes - Patient/family/caregi nela verbalizes understanding of instructions given Comment: [facility] ED Patient Summaryon 021 ED Patient Summary [facility] ? Urgent Care [address] [place] [id number] PATIENT DISCHARGE INSTRUCTIONS Patient Information Name: LEIGH MONTOYA Age: 19 Years Date of : 2000 Reason For Visit: UC - Ear Pain; UC - Ear Pain; RIGHT EAR PAIN Arrival Time: 06/18/2020 15:00:59 Primary Care Physician: Flex Wang DO Attending Physician: Marv Shannon Comment: Patient Education With: Address: When: Flex Wang [address], [address] [place] [id number] Business (1) Comments: Begin on the amoxicillin-clavulana [...] Follow these instructions at home: ? Take rbep-lft-bekesov and prescription medicines only as told by [...] 10/22/2008 Document Revised: 04/18/2018 Document Reviewed: 05/27/2017 TV [employer] Wizard App Patient Education ? 2019 [employer]. Medication Information: The exam and treatment you received today in the [facility] Department were for an urgent problem and are not intended as complete care. It is important for you to follow up with a doctor, nurse practitioner, or physician?s coding assistant for ongoing care. If your symptoms [...] so we can reach you if necessary. [facility] has provided you with a complete list of medications post discharge. Please inform your gas reverser/provider of your visit and for further instruction on these medications. Any specific questions regarding your chronic medications and dosages should be discussed with your primary care physician(s) and/or pharmacist. New Medications [facility], [address] [place] [phone], [phone] amoxicillin-clavulana te (Augmentin 500 mg-125 mg oral [...] media, right (H66.91) UC - Ear Pain ([id number]) UC - Ear Pain ([id number]) If you received any narcotics, sedation, or any other medication that causes drowsiness for the next 24 hours, unless otherwise directed: ? Do not drive a car. ? Do not operate machinery such as power tools, lawn mowers, drills, sewing machines, or stoves ? Avoid alcoholic beverages and drugs for allergies, n (more content not included)... Normal [facility] Note- Provideron 06-18-2020 Urgent Care [...] Impression and Plan Diagnosis Otitis media, right ([id number] H66.91, Discharge, Medical) Plan Prescriptions: Launch prescriptions Pharmacy: Augmentin 500 mg-125 mg oral tablet (Prescribe): 1 tab(s), PO, q12hr, for 10 day(s), 20 tab(s), 0 Refill(s). Patient was given the following educational materials: Otitis Media, Adult, Udai-dj-Golj. Follow up with: Flex Wang Begin on the amoxicillin-clavulana te antibiotic take every 12 hours for the next 10 days Follow-up with your primary care physician in 3-5 days for reevaluation, sooner if any worsening symptoms. Counseled: Patient, Regarding diagnosis, Regarding diagnostic results, Regarding treatment plan, Regarding prescription, Patient indicated understanding of instructions. Normal [facility] 021 Urgent Care Record [facility] ? Urgent Care [address] [id number] PATIENT DISCHARGE INSTRUCTIONS Patient Information Name: LEIGH MONTOYA Age: 19 Years Date of : 2000 Reason For Visit: UC - Ear Pain; UC - Ear Pain; RIGHT EAR PAIN Arrival Time: 06/18/2020 15:00:59 Primary Care Physician: Flex Wang DO Attending Physician: Marv Shannon Comment: Visit Diagnosis: Diagnoses This Visit Otitis media, right (H66.91) UC - Ear Pain ([id number]) UC - Ear Pain ([id number]) If you received any narcotics, sedation, or [...] With: Address: When: Flex Wang [address] [facility] [place] [address] [place] [address] Business (1) Comments: Begin on the amoxicillin-clavulana te antibiotic take every 12 hours for the next 10 days Follow-up with your primary care physician in 3-5 days for reevaluation, sooner if any worsening symptoms Medication Information: The exam and treatment you received today in the [facility] were for an urgent problem and are not intended as complete care. It is important for you to follow up with a doctor, nurse practitioner, or physician?s coding assistant for ongoing care. If your symptoms [...] so we can reach you if necessary. [facility] has provided you with a complete list of medications post discharge. Please inform your gas reverser/provider of your visit and for further instruction on these medications. Any specific questions regarding your chronic medications and dosages should be discussed with your primary care physician(s) and/or pharmacist. New Medications [facility] [address], [address] [place], [place] [id number], [phone] amoxicillin-clavulana te (Augmentin 500 mg-125 mg oral [...] Follow these instructions at home: ? Take yjen-xwi-bgygphc and prescription medicines only as told by [...] (paralyzed). ? You (more content not included)... [facility] Consent Formson 04-28-2020 Consent Forms [id number] [facility]-28-2020 Provider Orders [id number] .00[facility] Coding Summaryon 04-25-2020 Coding Summary CODING DATE: 04/25/2020 [facility] STATUS: Home PAYOR: Commercial Insurance ADMIT DX: [...] Nano Padilla Date Saved: 04/25/2020 02:38 pm [facility] .QC Respiratory Panel 2.1 (B ioFire)on 04-22-2020 Internal Control-Resp Panel 2.1(BioFire) Pass [facility] Comment on above: Order Comment: Order ed by Holley.[[id number]] Performed By: #### 6 [id number], [id number] ####[facility] (DEFAULT)[address] [place] [address] Respiratory Panel 2.1 (BioFi re)on 04-22-2020 Adenovirus -BioFire Not detected Normal Not Detected [facility] Comment on above: Performed By: #### 6 [id number], [id number] ####[facility] (DEFAULT)[address] [place] [address] Bordetella parapertussis -BioFire Not detected Normal Not Detected [facility] Comment on above: Performed By: #### 6 [id number], [id number] ####[facility] (DEFAULT)[address] [place] [address] Bordetella pertussis -BioFire Not detected Normal Not Detected [facility] Comment on above: Performed By: #### 6 [id number], [id number] ####[facility] (DEFAULT)[address] [place] [address] Chlamydia pneumoniae -BioFire Not detected Normal Not Detected [facility] Comment on above: Performed By: #### 6 [id number], [id number] ####[facility] (DEFAULT)[address] [place] [address] Coronavirus 229E (Not COVID-19) -BioFire Not detected Normal Not Detected [facility] Comment on above: Performed By: #### 6 [id number], [id number] ####[facility] (DEFAULT)[address] [place] [address] Coronavirus HKU1 (Not COVID-19) -BioFire Not detected Normal Not Detected [facility] Comment on above: Performed By: #### 6 [id number], [id number] ####[facility] (DEFAULT)[address] [place] [address] Coronavirus NL63 (Not COVID-19) -BioFire Not detected Normal Not Detected [facility] Comment on above: Performed By: #### 6 [id number], [id number] ####[facility] (DEFAULT)[address] [place] [address] Coronavirus OC43 (Not COVID-19) -BioFire Not detected Normal Not Detected [facility] Comment on above: Performed By: #### 6 [id number], [id number] ####[facility] (DEFAULT)[address] [place] [address] Employed in healthcare? No Invalid Interpretation Code [facility] Comment on above: Performed By: #### 6 [id number], [id number] ####[facility] (DEFAULT)[address] [place] [address] Group care resident? No Invalid Interpretation Code [facility] Comment on above: Performed By: #### 6 [id number], [id number] ####[facility] (DEFAULT)[address] [place] [address] Human Metapneumovirus -BioFire Not detected Normal Not Detected [facility] Comment on above: Performed By: #### 6 [id number], [id number] ####[facility] (DEFAULT)[address] [place] [address] Human Rhinovirus/Enterovir us -BioFire Not detected Normal Not Detected [facility] Comment on above: Performed By: #### 6 [id number], [id number] ####[facility] (DEFAULT)[address] [place] [address] In ICU? No Invalid Interpretation Code [facility] Comment on above: Performed By: #### 6 [id number], [id number] ####[facility] (DEFAULT)[address] [place] [address] Influenza A (no subtype) -BioFire Not detected Normal Not Detected [facility] Comment on above: Performed By: #### 6 [id number], [id number] ####[facility] (DEFAULT)[address] [place] [address] Influenza A -BioFire Not detected Normal Not Detected [facility] Comment on above: Performed By: #### 6 [id number], [id number] ####[facility] (DEFAULT)[address] [place] [address] Influenza A H1 -BioFire Not detected Normal Not Detected [facility] Comment on above: Performed By: #### 6 [id number], [id number] ####[facility] (DEFAULT)[address] [place] [address] Influenza A H1-2009 -BioFire Not detected Normal Not Detected [facility] Comment on above: Performed By: #### 6 [id number], [id number] ####[facility] (DEFAULT)[address] [place] [address] Influenza A H3 -BioFire Not detected Normal Not Detected [facility] Comment on above: Performed By: #### 6 [id number], [id number] ####[facility] (DEFAULT)[address] [place] [address] Influenza B -BioFire Not detected Normal Not Detected [facility] Comment on above: Performed By: #### 6 [id number], [id number] ####[facility] (DEFAULT)[address] [place] [address] Mycoplasma pneumoniae -BioFire Not detected Normal Not Detected [facility] Comment on above: Performed By: #### 6 [id number], [id number] ####[facility] (DEFAULT)[address] [place] [address] Parainfluenza Virus 1 -BioFire Not detected Normal Not Detected [facility] Comment on above: Performed By: #### 6 [id number], [id number] ####[facility] (DEFAULT)[address] [place] [address] Parainfluenza Virus 2 -BioFire Not detected Normal Not Detected [facility] Comment on above: Performed By: #### 6 [id number], [id number] ####[facility] (DEFAULT)[address] [place] [address] Parainfluenza Virus 3 -BioFire Not detected Normal Not Detected [facility] Comment on above: Performed By: #### 6 [id number], [id number] ####[facility] (DEFAULT)[address] [place] [address] Parainfluenza Virus 4 -BioFire Not detected Normal Not Detected [facility] Comment on above: Performed By: #### 6 [id number], [id number] ####[facility] (DEFAULT)[address] [place] [address] status? Not Invalid Interpretation Code [facility] Comment on above: Performed By: #### 6 [id number], [id number] ####[facility] (DEFAULT)[address] [place] [address] Respiratory Syncytial Virus -BioFire Not detected Normal Not Detected [facility] Comment on above: Performed By: #### 6 [id number], [id number] ####[facility] (DEFAULT)[address] [place] [address] SARS-CoV-2 (COVID-19) RNA OZZIE+probe Ql (Unsp spec) Not detected Normal Not Detected [facility] Comment on above: Performed By: #### 6 [id number], [id number] ####[facility] (DEFAULT)[address] [place] [address] SARS-CoV-2 (COVID-19) RNA OZZIE+probe Ql (Unsp spec) No Invalid Interpretation Code [facility] Comment on above: Performed By: #### 6 [id number], [id number] ####[facility] (DEFAULT)[address] [place] [address] Symptomatic as defined by CDC? No Invalid Interpretation Code [facility] Comment on above: Performed By: #### 6 [id number], [id number] ####[facility] (DEFAULT)[address] [place] [address] Vital Signs Date Time Vital Sign Value Performing Clinician Facility 12-06-2021 16:30-0400 Body height 160.02 cm Ezequiel Melo Other [facility] Other 12-06-2021 16:30-0400 Body mass index (BMI) [Ratio] 41.62 kg/m2 Ezequiel Melo Other [facility] Other 12-06-2021 16:30-0400 Body weight 106.6 kg Ezequiel Melo Other [facility] Other 10-11-2021 14:45-0400 Body height 160.02 cm Ezequiel Melo Other [facility] Other 10-11-2021 14:45-0400 Body mass index (BMI) [Ratio] 41.98 kg/m2 Ezequiel Melo Other [facility] Other 10-11-2021 14:45-0400 Body weight 107.5 kg Ezequiel Melo Other [facility] Other 10-11-2021 14:45-0400 Diastolic blood pressure 79 mm[Hg] Ezequiel Melo Other [facility] Other 10-11-2021 14:45-0400 Systolic blood pressure 128 mm[Hg] Ezequiel Melo Other [facility] Other Encounters Encounter Date Encounter Type Care [...] 12-06-2021 End: 12-06-2021 ambulatory Ezequiel Melo Other [facility] Other Start: 12-06-2021 Patient encounter procedure Ezequiel Melo [facility] Start: 10-11-2021 End: 10-11-2021 ambulatory Ezequiel Melo Other [facility] Other Start: 10-11-2021 FQ visit new patient Ezequiel Melo [facility] Payers Date Payer Category Payer Unknown [id number] 2000 Unknown [id number] 2.16.84 [id number] 2000 Unknown [id number] 2.16.84 [id number] 2000 Unknown [id number] 2.16.84 [id number] 2000 Unknown [id number] 2.16.84 [id number] 2000 Unknown [id number] 2.16.84 [id number] 2000 Unknown [id number] 2.16.84 [id number] 2000 Unknown [id number] 2.16.84 [id number] 2000 Unknown [id number] 2.16.84 [id number] 1959 Unknown [id number] Medicaid [id number] 2. [id number] Social History Date Type Detail Facility Sex Assigned At [facility] Other Evaluation note 12-06-2021 Note Date & Type Note Facility 12-06-2021 Evaluation note Encounter Date Diagnosis Assessment Notes Nov, Dyspepsia (ICD-10 - K30) patient states does have some bloating in the left center she does have pain noted. patient is advised that we can start levsin and refer to mural painter for food testing. [facility] Other Evaluation note 05-25-2022 Note Date & Type Note Facility 10-11-2021 Evaluation note Encounter Date Diagnosis Assessment Notes September, Bloating (ICD-10 - R14.0) September, Dyspepsia (ICD-10 - K30) September, Abdominal pain (ICD-10 - R10.9) [facility] Other Clinical Note 04-05-2021 Note Date & [...] This may take several hours. ? Take pqea-far-cizyugw and prescription medicines only as told by your health care provider. ? When you can walk without pain, wear supportive shoes that have stiff soles. Do not wear flip-flops, and do not walk barefoot. ? Keep all follow-up visits as told by your health care provider. This is important. Contact a health care provide (more content not included)... [facility] Clinical Note 07-29-2020 Note Date & Type Note Facility 07-29-2020 Note Patient Education Ma terials Follows:Disease Pharyngitis Pharyngitis is a sore throat (pharynx). This is when there is redness, pain, and swelling in your throat. Most of the time, this condition gets better on its own. In some cases, you may need medicine. Follow these instructions at home: ? Take noxh-mdr-bsddggp and prescription medicines only as told by [...] 10/22/2008 Document Revised: 04/18/2018 Document Reviewed: 06/11/2017 TV [employer] Wizard App Patient Education ? 2019 [employer]. [facility] Clinical Note 06-18-2020 Note Date & Type Note Facility 06-18-2020 Note Patient Education Ma terials Follows: Otitis Media, Adult Otitis media means that the middle ear is red and swollen (inflamed) and full of fluid. The condition usually goes away on its own. Follow these instructions at home: ? Take zfpt-ehb-uqnzvvl and prescription medicines only as told by [...] 10/22/2008 Document Revised: 04/18/2018 Document Reviewed: 05/27/2017 TV Volume Wizard App Patient Education ? 2019 [employer] [facility]. [facility] Clinical Note 04-22-2020 Note Date & Type Note Facility 04-22-2020 Note Nasal swab performed without complication. Patient tolerated well. Education given. Patient verbalized understanding. [Electronically Signed on: 04/22/2020 15:05 EST] Miri Nuñez RN [Verified on: 04/22/2020 15:05 EST] Miri Nuñez RN [facility] History general Narrative - Reported Note Date & Type Note Facility History general Narrative - Reported Type Medical History PCOS Medical History Endometriosis Surgical History laparoscopy - endometriosis [facility] Other Reason for referral (narrative) Note Date [...] is able to get in before this. [facility] Other Reason for visit Narrative Note Date & Type Note Facility Reason for visit Narrative PATIENT HERE AT THE REQUEST OF DR. VERGARA FOR EVALUATION & TREATMENT OF BLOATING [facility] Other Reason for visit Narrative Note Date [...] of the side effects that were listed. [facility] Other Summary Purpose Family History No Family History Records FoundNo Family History Records FoundNo Family History Records FoundNo Family History Records Found Advance Directives No Advanced Directives Records FoundNo Advanced Directives Records FoundNo Advanced Directives Records FoundNo Advanced Directives Records Found Additional Source Comments INFORMATION SOURCE (unrecogn ized section and content) DATE CREATED AUTHOR 04/21/2021 [facility] DATE CREATED AUTHOR AUTHOR'S ORGANIZ ATION 11/08/2021 [facility] DATE CREATED AUTHOR AUTHOR'S ORGANIZ ATION 09/06/2022 [facility] DATE CREATED AUTHOR AUTHOR'S ORGANIZ ATION 01/04/2024 [facility] FOR RECORDS PERTAINING TO PATIENTS WHO [...] BE BASED ON THE PRIMARY CLINICAL RECORDS. [employer] provides no warranty or guarantee of the accuracy or completeness of information in this document.
[2024-01-19 22:46] LABS: Total Protein Urine Random 9.6 mg/dL (<=11.9)
[2024-01-19 23:43] LABS: Total Protein 24 Hour Urine 283.2 mg/24hr (<=149.1); Total Volume 24 Hour Urine 2950 mL/24hr
== END 2024-01-19 11:59 | disposition home or self-care (01) ==
LOC: LAB 11:58
PROVIDERS: Visit Provider Physician Assistant
DX: O13.9 Gestational [pregnancy-induced] hypertension without significant proteinuria, unspecified trimester (principal)
CPT/HCPCS: 81050; 84156

== ENCOUNTER 2024-01-20 07:01 | Outpatient (OUT) | payer OTHER, SELFPAY ==
--- OUTSIDE RECORDS SUMMARY | 2024-01-20 07:04 | XMS_ITS | CCD ---
Author Organization [facility] Care Team Providers Care Documentation Coordinator Name Role Phone Ezequiel Melo Unavailable [facility] MIRANDA Primary Care Unavailable JAI ., DR UNDERWOOD Admitting Unavailable JAI ., DR UNDERWOOD Consulting Unavailable JAI ., DR UNDERWOOD Attending Unavailable [facility], DR MIRANDA Primary Care Unavailable AJI ., DR UNDERWOOD Admitting Unavailable JAI ., DR UNDERWOOD Consulting Unavailable JAI ., DR UNDERWOOD Attending Unavailable YASMINE VERGARA Attending Unavailable YASMINE VERGARA Attending Unavailable YASMINE VERGARA Attending Unavailable MIRIAM HAWLEY Attending Unavailable YASMINE VERGARA Attending Unavailable Allergies Allergy Classification Reported Allergen(s) Allergy Type Date of Onset Reaction(s) Facility (2 sources) [facility] Other (1 source) Sulfonamides (Antibiotic) Drug allergy (disorder) [facility] Repository Medications Current Medications Medication Drug Class(es) [...] to 29on 09-06-2022 . . Normal [facility] Comment on above: Performed By: #### 4 [id number] #### [facility] [address] [place] [address] Dr. Dat Wesley Age Gdln ACOG Testing 21-29 Normal [facility] Comment on above: Performed By: #### 4 [id number] #### [facility] [address] [place] [address] Dr. aDt Wesley DIAGNOSIS: Comment Normal [facility] Comment on above: Result Comment: NEGA TIVE FOR INTRAEPITHELIAL LESION OR MALIGNANCY. Performed By: #### 4 [id number] #### [facility] [address] [place] [address] Dr. Dat Wesley Methodology: Comment [facility] Comment on above: Result Comment: This liquid based ThinPrep(R) pap test was screened with the use of an image guided system. Performed By: #### 4 [id number] #### [facility] [address] [place] [address] Dr. Dat Wesley Note: Comment [facility] Comment on above: Result Comment: The Pap smear is a screening test designed to aid in the detection of premalignant and malignant conditions of the uterine cervix. It is not a diagnostic procedure and should not be used as the sole means of detecting cervical cancer. Both false-positive and false-negative reports do occur. . Performed By: #### 4 [id number] #### [facility] [address] [place] [address] Dr. Dat Wesley Performed by: Comment Normal [facility] Comment on above: Result Comment: Singh Sanders Medical Microbiologist (ASCP) Performed By: #### 4 [id number] #### [facility] [address] [place] [address] Dr. Dat Wesley Reflex Criteria: Comment [facility] Comment on above: Result Comment: The HPV DNA reflex criteria were not met with this specimen result therefore, no HPV testing was performed. . Performed By: #### 4 [id number] #### [facility] [address] [place] [address] Dr. Dat Wesley Specimen adequacy: Comment Normal [facility] Comment on above: Result Comment: Sati sfactory for evaluation. Endocervical and/or squamous metaplastic cells (endocervical component) are present. Performed By: #### 4 [id number] #### [facility] [address] [place] [address] Dr. Dat Wesley HCG,Urineon 11-03-2021 Beta HCG ( test) Ql (U) Negative Normal [facility] Comment on above: Result Comment: PERF ORMED BY: [address] [place] [id number] PATHOLOGIST PATIENT CARE TECHNICIAN SULTANA PETE M.D. Performed By: #### U HCG #### [place] [id number] [facility] Charles 11-03-2021 L - -------- Specimen: [id number] Received: 11/03/21 Status: AYDIN Alex Num: [id number] Spec Type: Surgical Subm Dr: Ezequiel Melo MD Tissues: A Small Intestine - Biopsy/Polyp (SMALL BOWEL) Procedures: HE Stain/2, Gross/Micro L4 -------- Patient Age/Sex Location Account Attending Physician -------- Leigh Singh [id number] Ezequiel Melo MD -------- SPEC NUM: [id number] RECD: 11/03/21 STATUS: AYDIN JOHNSON NUM: [id number] PAPI: 11/03/21 [facility] DR: Ezequiel Melo MD ENTERED: 11/03/21 [facility] DR: SPEC TYPE: Surgical DEPT: S [...] is performed. This case is interpreted at [facility], [place], [place] -------- Specimen: Received: 11/03/21 Status: RAFAELChino Johnson Num: [id number] Spec Type: Surgical Subm Dr: Ezequiel Melo MD Tissues: A Small Intestine - Biopsy/Polyp (SMALL BOWEL) Procedures: HE Stain/2, Gross/Micro L4 -------- Patient: Leigh Singh [id number] (Continued) -------- Specimen: [id number] Received: 11/03/21 (Continued) Signed (signature on file) Gabe Ellis MD 11/06/21 1703 -------- Specimen: [id number] Received: 11/03/21 Status: RAFAELChino Johnson Num: [id number] Spec Type: Surgical Subm Dr: Ezequiel Melo MD Tissues: A Small Intestine - Biopsy/Polyp (SMALL BOWEL) Procedures: HE Stain/2, Gross/Micro L4 -------- Patient: Leigh Singh [id number] (Continued) -------- Specimen: Received: 11/03/21 (Continued) CPT Codes 34859 -------- -------- Specimen: Received: 11/03/21 Status: AYDIN Johnson Num: [id number] Spec Type: Surgical Subm Dr: Ezequiel Melo MD Tissues: A Small Intestine - Biopsy/Polyp (SMALL BOWEL) Procedures: MARIANN Stain/2, Gross/Micro L4 -------- Patient: FranciscoLeigh Craig [id number] (Continued) -------- Signed (signature on file) Gabe Ellis MD 11/06/21 1703 Normal [facility] SARS-CoV-2 (COVID-19) RNA OZZIE+probe Ql (Unsp spec) Negative Normal Negative [facility] Comment on above: Order Comment: Healt hcare Worker?: N Result Comment: Testing for SARS-CoV-2 by RT-PCR This test was developed and its performance characteristics determined by [employer] and validated at the [facility]. This test has not been FDA cleared [...] is terminated or revoked sooner. PERFORMED BY: [address] [place] [address] PATHOLOGIST PATIENT CARE TECHNICIAN SULTANA PETE M.D. Performed By: #### C OVID 19 [facility] #### [address] Coding Summaryon 04-19-2021 Coding Summary HTMLBase 64 YttgpdonMQv9rXu+PGhlY WQ+IB9VIEBuU72zgEHwmA 3IQ6jDIT8HBONIQMMJAT8 MCB7ucIN6YCteI9JmhoGl FfcdrCHzOL77NYt1VJY3o CqeKHggdU9roSUfR4t9Vv FzLT99jG57WNaeBCRfMoJ 3LjZpbjsgbWFy W9wbBeKwnHWyKgp+PHRhY mxlIHdpZHRoPScxMDAlJy HybCkmHR6uUn0vUCHsXVP vbGxhcHNlOiBj r5mzNTSoYEyrKI5yxGofZ 6MekDY5DTBzs4g8Hg84iY I+ZEHsWVY7oRocKIjag67 0LcMhk5bpCDJ1 tMOsCKgaZKM1M72nd1W4M WCvBOMuLKL5yVH8zA0fzH ufdgwiW2NmtDHzIiD4SLC 7yDPrvC7ieUes tosjeS4qFts+Y11NBL8GD GVTFS0EHge0H2ZpUulmbT I+UX11LZKoQA61hKTifDX ed3fpzEk8TuOc TQIjEKQ9uIgrYFkmh8RuF GFyW93tcHCos5T2TWIhxN orcJAhNtOpeOI8qX2iEWb twunia7jwzbpu Nnayo7lcrs26kN95R72lL MbgFALaZKK2QOOzPULzrT evjr8mrK2mXi4+NNwoe7n xt4szeAa8GhJt LSFaqlCsbQgaFDK6q1LoR a08Q7SvzFfqo9KfRgu3yy 78vXMfn6I6aRU2HRigMMS udQ7bOLyrVnG5 LPAiDoFstV85oAVrFGgaB o4heQrrvHfjXH4fEYDtvn vtNILgiS5iEKPlhSFunMp zEJ3tRJNclfcr h310BuOaGOH6IXOdxJYxF 5EeaO2qQnWuPEPqGYNuF7 OxeGLgSBdeB353NLbxKhF 2SSYmieOwB2Ay TZTmwZsgNpU6i4M9Rt9Fq 9QizdxhVMJ6SNysSVHxFb YwDyLxWaJ1B5AzTir7AVI bmHodVT9aB8Lk XZHtvvmraugpwLS2OXQiM CWrzH37sYYjLMcoLn8ek3 V9r795IZErGQTvqP28Hb0 udDogMTBwdCBU oR3snoiew2cotkquQoXoK WSjURd8GYn0LXVfaCckXw ZnAWN7FgG1ETC1nVTjfZ5 iwObhnyfpcK3g Oyc+T75dwN2wHVC5QWG0k fuxIIZkikSzUG07DY97S8 RyPjwvdGFibGU+PGRpdiB qhNxaGM9nVhYl r5fts2FlJGmcY5VpQNRsN PefOuj9FLZwRXQ0cET8eO 8oKWJbYLrqt9A3xVK9B6A wbmApks7ht2mb JUKcGOeiQ27sjJAtf3Q5A KDloGM0SRPkyMsoJmYtdD 93Oyc+TJWwhRitq5SqJwg mo2tpi3xhyVe7 OhDqOEMmghSmuDqxKOL1k 8YkKw92L58lZMpdCAWfFM TiYBBbLIOcmSysis2yuR6 wIi8+PGNvbCB3 qIS1yH8rUSJpLeU8MShpT 891DeKgoRNgPlafy9fto6 cigZg4SzCdWSFpzkOjhRq tCRL3n1MwQx94 V25vNAyaPVQaTXQiGWPkP RAezQunau8jzD6jFy9+PC 0rl4xmqv27kF05tBB+PHR tENA1wEcxVCja MXAgzU3fNOtgKxN2JWXcM uErpC75hVWqAFieWu7hbS nxbBziIZ4pATGenyrml74 1NfUnf3vvBNGm rKDdKLcwAMU2W79wt7F6L VRrFDYvWEZ0hEN0hB1khG lnbjogbGVmdDsgdmVydGl eBRsmYZwuT764 IHRvcDsnPlBhdGllbnQgT lLjCCh3F1XcXye6ZYNxhK idNJ9leBXjPIsoDt6azGk uuOozRD1fSCWi bhelv958OrIpc3asCGNyy KPjQZqvLLS9W52kl1Y0KW EjURFtZAX4rFR4xK5bjOu nbjogbGVmdDsg zdOccQpdSElzIXtgY704S HRvcDsnPkJpcnRoIERhdG D3MR61MH55sAYyn5L4gKB 1U3GkMMKrnaef vvkimAS0NXReWPWlwU33O e5pbMklSl0pHWFoMID4CR YagALnU4AykS9iWgWkBKT rPIEtX2PvfFAa JJyhE863AEtlMrE1NVJqn hItO7UdFEUgiBvrTwF7p0 K5Pn3BX7V5OR24VC78cNL tv7C8mCV1V8Kz JTQpufhctsnrzSW1LREyL STenQ14Ws8gcKqaIf6xYY MqMLS5FPKeiKTyM1YaxV4 yOiAjMDAwMDAw O9YspTOeJJdzV413NUjtB pJ9USNvlzYfG0TeRGZxoS mhApN2f0Y7Jd5HHYf1XS5 7LJ08iNOpq8N5 fCY6V1XqJZXckunbbedrw LY3GAVvWHKayN32Vo0zyO olMf8zNPMfBCG6DTXmbGP gH7StoT7eIbFw ZBMeYQRtY6LrqVPxKZvoM 268KTicBaK5HLEkuzVvG4 GyFTPmyNcrXjM5d1V6Nn5 FQCHnOG19BXS6 uWX5QA74YP19R0KuBvvid GFibGU+PHRhYmxlIHdpZH RoPScxMDAlJyBzdHlsZT0 rJe4qNMPvLYBk qXvrwIDbBpYfs6oiOSDlR WdcQN0uwIwwJ7KauHM3SL Bpz7p7Ui37I10nJ2NooTM +BTQrpHW7aIP5 xM2xPlNtRcN2KKpqK111G fCkpVZrLchxh1gow1uknM j1LoS5EYSvgoEwgAjdIUJ 3u5UwNv74A29f IHdpZHRoPSIxNSUiIHZhb Xczcj9qzJ2hRz4+PGNvbC A2mHU4wW2tMzMyNjR0RUp wI520SxTpbZZk Iglcz8dmb9ngnFk9PqNvY DBdffFziAbpKAL5o8MnPf 64V1SqoSgkk7KsYoh5zg5 3kETgh4C9tMV3 U4OoIVCyjsstnNPowDzhH X3vNWUzjyptDEWapZ3lSS RuH4t3UcFwGgY2GMwhG3S jqmG5FFNltMMc TPchLTG0K44vr5P0CXYvJ JXzGBL8jSK1jQ5nyEyvyt ogbGVmdDsgdmVydGljYWw iUZwiU284RUCf wXugYOTqgM8yDGCjgCZbg AtxAP8bPDBbbwkcUrUZFR REWSwgSEFOTkFIIEdSQUN CYM80HK82iMEc u4S7xKG4Y2IrKPXgzxkcv ftovRT2HATdBDRsrX00nP FcHYgmPb9ev3L1h050DVM xWSYrzM23Em6o rWwmPYLdpLDPiU1yiwirh 4skabbcPvLlMKEePSi3OQ b1TSErvQukVaOoMXE8KxG 9SWW0gAHqtJ2n oFuholrzgB9vYdx+MDMvM DkvMjAwMTwvdGQ+PHRkIH E2yQwkAAviYDJzaL9wLQZ nY2j0ItNeWnV0 URvuY1QeSNMjoeczEg50l Q5gAeUpCtT4RSuxG5Twli R6RSCqyQVdEEztOCX0W28 rj1P1FKRrMUHv RVR7yQL3cZ3dpCtihawun GVmdDsgdmVydGljYWwtYW ejQ761BFKzcGyrLvClKBj iILVoEN24SC65 hRCha4E8oRH3F8CgAKSld zepbzmqaPT3VHZhYPDtaB 72zSCrJYzbZg6us6J5o67 8PBUsFGFaoR22 Op0olTbuWSTouXHAmB4ea ojce3omipyfRsReFTHyUU m2IVe2HNCyxEntFmQaQHM 1JjM1WWK5yCQa lU1qiGsiagjnkQ0aSms+R hBWAAzLTJ05OU27sBNrl8 M2iQD8T6EmCKWhoxzutcx xkCG2IAPmJVFu kL93iXIqRRldMg9dt0Q1p 700IYKnQOIktB68Gr1ohX mwNHVpnNCFxI4gkpaeg1b vcjogIzAwMDAw QGj6XVn1IPUmzFhjNgZlW IV2JiY9JCA7tIDdsV0xwM orfmceqI3tRpu+L9S4L4R kPjwvdHI+PC90 ASAdXO39oZXamBFxc8bpj Ux2GiAaEKDnPFY3uMajJI rce3EmTXRvV64apZMys4G 6IGNvbGxhcHNl JcWwcNC6dP2sYEyukwuex 2mpaoimFcepp4usgf58zW 84H18aRZugAVZzSOKgWAY qRGXybPgdie8q fV6cBr0+DUYroYB3sVW7o Z2rAnYgRqI5CYpyV657Js EtqREyEvggg0hjy1cqrEb 9IjIwJSIgdmFs aScdFJI4u8QbXg94J93wT HdpZHRoPSIyMCUiIHZhbG dpoi3niC2sEa8+YN3ft1b ill52eT51nFN+ IXQpKXK4wYzrZSgtXDGzg Y7xFLwoKrZ4OBUdTlXbyP 80hDGgROqqMq3ulOwtrVw rUS2dRJAbdjyg i494ZtTwp2nsVJQfyVNcZ KuwICA9F89oy9K9ARXqWS TaJBS5eKG6wE5eyTclecn gbGVmdDsgdmVy sNkdWZlmLVxgC346MVTnl AmtYlUqzDTjR7cdjaSZRD 1lOjwvdGQ+IBZgLPC7jLa nVAaeLBDkbF2y JUZcU9k5HzSjDkB9XYrqS 2GrvhL7QEAzyXUjITShiB YCgK1kwjpka2yduqypBfW oIVAfZLc4SEi8 MTCuzZtdDyRuLFP1WqH2O DA6tTGuqD6edFnrludzwE 9wOyc+RklOOjwvdGQ+PHR eGIJ1nEhiFUrd VBRfiP6oRHRqD3v0MpRbZ sU6PMovK4KnqzE7FNRuaE AlQODlnNMQoB7xkujok3m vcjogIzAwMDAw ANy1SRg4BKRgcFfqNfWkZ IZ3RqT3LAU9xAJvyK1nxD vhkcowsI7jLim+TVJOOjw vdGQ+PHRkIHN0 hHhhWKgkYNAvhW5zQGZgW 3o7OlXyKjB8EYanX9Hbqn I1LMGkoDKmFCOfoSQIvV4 fznqfx0vrxxdt EyPsWVAnZQn2OGd2HSCrv EltUcByRUU1LoY9CZD6oN ScdI9duDedzhlriZ8fUvj +XLO4JYL3OA38 DB64X6FjQbjeuBUlrPG+P HRhYmxlIHdpZHRoPScxMD NvKtOxdEzfEG1nBl3vZBJ yLWNvbGxhcHNl OiB (more content not included)... [facility] Ur[facility] Note- Provideron 04-06-2021 Urgent [...] and Plan Diagnosis Sprain of left foot ([id number] S93.602A, Discharge, Medical) Plan Condition: Stable. Disposition: [...] she can arrange follow-up as needed. Normal [facility] ED Clinical Summaryon 2020 ED Clinical Summary [facility] ? Urgent Care [address] [place] [id number] Clinical Summary PERSON INFORMATION Name: LEIGH MONTOYA Age: 20 Years Sex: FEMALE : 2000 MRN: Acct#: Visit Reason: UC - Ankle/Foot/Toe Pain or Swelling; LEFT FOOT PAIN Arrival: 04/05/2021 16:12:07 Discharge: 04/05/2021 17:50:00 LOS: 000 01:38 Check In: 04/05/2021 16:12:07 Checkout: 04/05/2021 17:50:00 Address: [facility] [id number] PCP: Flex Wang DO PROVIDER INFORMATION Provider Role Assigned Unassigned Monica Dunn INFORMATICS CONSULTANT Nurse 04/05/2021 16:14:32 Paul Atkins PA-C ED [...] Sprain Follow-Up: With: Address: When: JEFF Bernabe [employer] [address] [place], [place] [id number] Business (1) , only if needed With: Address: When: Flex Wang [address] [facility] [address] [place] [id number] Business (1) Within 3 to 5 days DIAGNOSIS: Sprain of left foot Patient Understands: Yes - Patient/family/caregi nela verbalizes understanding of instructions given Comment: Normal [facility] ED Patient Summaryon 021 ED Patient Summary [facility] ? Urgent Care [address] [place], [place] [id number] PATIENT DISCHARGE INSTRUCTIONS Patient Information Name: LEIGH MONTOYA Age: 20 Years Date of : 2000 Reason For Visit: UC - Ankle/Foot/Toe Pain or Swelling; LEFT FOOT PAIN Arrival Time: 04/05/2021 16:12:07 Primary Care Physician: Flex Wang DO Attending Physician: Nirav Nunez Comment: Patient Education With: Address: When: JEFF Bernabe ITS [place] [address] [address] Business (1) , only if needed With: Address: When: Flex Wang [address] [facility], [place] [address] Business (1) Within 3 to [...] ? As (more content not included)... Normal [facility] Recordon 021 Urgent Care Record [facility] ? Urgent Care [address] [facility]. [place], [place] [id number] PATIENT DISCHARGE INSTRUCTIONS Patient Information Name: LEIGH MNOTOYA Age: 20 Years Date of : 2000 Reason For Visit: UC - Ankle/Foot/Toe Pain or Swelling; LEFT FOOT PAIN Arrival Time: 04/05/2021 16:12:07 Primary Care Physician: Flex Wang DO Attending Physician: Nirav Nunez Comment: Visit Diagnosis: Diagnoses This Visit Sprain of left foot (S93.602A) UC - Ankle/Foot/Toe Pain or Swelling ([id number]) If you received any narcotics, sedation, or [...] With: Address: When: JEFF JESUS [address] [address] Business (1) , only if needed With: Address: When: Flex Wang [address] [facility], [place] [address] Business (1) Within 3 to 5 days Medication Information: The exam and treatment you received today in the [facility] were for an urgent problem and are not intended as complete care. It is important for you to follow up with a doctor, nurse practitioner, or physician?s assistant head cashier for ongoing care. If your symptoms become [...] so we can reach you if necessary. [facility] has provided you with a complete list of medications post discharge. Please inform your douper/provider of your visit and for further instruction [...] are no br (more content not included)... [facility] XR Foot Complete Lefton 03-20 XR [...] Vishal Fernandez 04/06/21 8:27 am Technologist: NELIDA [facility] Coding Summaryon 08-01-2020 Coding Summary HTMLBase 64 MdukmxkxBNg3mZi+PGhlY WQ+QX6TCRGqV71nqMHoyV 6UG4mJZG2IWLHYMKNJMV4 WRQ4paKC2PTzkN6EsfrZs OuhyqMMbZQ86AJj7BBU0d YyuFDfafZ2dkKXfK3h7Hp NdWY29lK10LEbmOFJzWrV 3LjZpbjsgbWFy F3qmFoKjgQUnTnd+PHRhY mxlIHdpZHRoPScxMDAlJy YddShcRV0aFo0gDQGoSUN vbGxhcHNlOiBj b3amVBHkJNieWF7joSvzR 8LztSK5IOHnu1y3Cz56rE I+OBJoASB0gTmzFTtnh04 0XlTkc2tvMXL0 yQUyGZetSKX3D95kt8J5W ULxDFWcJFX0iTI2oH3wiR gdlfisT4PnkDNkBvD8UFZ 7sTRucY1qnAvv fpyemW1sXjg+F77BUV9HJ GVQWQ5WDre0C0GmTkhzqC I+YD16EYKiJD22sUYdbTA iu5gavEq9JeFh JQXoEVA4iKglZBahz7GcB IHnP38rtGKxn6I4IOYvzX nkyBHoTxXqcIC0aA8qNLl iqinrp8xibceb Oxyjz4blit14dL48T89iM PpvJECoZCD7TRNgLZFfdW ltaj5ntQ0sSl2+WVqxv4n qx4bnhZh7EeSm TBGmhmOzfIsvJYG8e5XxC c52O5HdrHefz7IoFih0gj 14zESag9W7fMJ9APczCML azX3qGYodHxH1 XOCtRsIkgJ05qDHqBDzdE n3egHsydAffLW5pJHVtgg xiUUVomC1vJKQjnRWaeZw rFK0kERDinmjl m137NaCwOSQ1JXBrjRScR 2DyuH1vUhNiBIUxWXBxA6 NxyMLaWGquL277QLhsRrQ 3CHKxggIcE5Bb IAOodWgzMsG7s1O4Vd1Bk 4SwrjlqVLX0MPrfHECyZf O3EqJnEkU2U8CpAtd3GTQ dzQjvIB9pC9Lv VCRdnkitwhvpsBK2ZSRwR VOrbL81hFZyOLlyQu8xh3 E7p641FNXrQOUgoT90Uv7 udDogMTBwdCBU xA8jfwgbz7iwmwonSrXrS XUrMRp9DOo8RNZnkGcrPx PdWGM9NlK0WES7qINxfF6 ehAgacididR8v Oyc+C47tvA5aWSK4QWW4l pyrNOWofsIxHM67PS61P5 RyPjwvdGFibGU+PGRpdiB xxAdsOJ5cHiGp t7cvb7AoAZmbY1GgRIKvM BszHjf7YPBmJIO4sKQ0aY 8rIOPfVJfwn6S8xMB1S7A rkkAsev7zt1vc YPHnNVwcT79lvLCbl8Y7A DDpwLR0MKIqaDeuXxAmdP 93Oyc+EZMsoOggm0GeCsy ab9iic3zzbEm8 ReDcJLVnnzIumFslBDI9a 0DuWw95B68iCRrzTOEmWM HnQGVdYGQmxTbygd3rwP9 wIi8+PGNvbCB3 kGM4rW8fAIJcLbU6AJigJ 777SkWqqAIuRnhtp1tzh8 faqOn4JwTyXXNzupOwnAl bEMG9i9EpZs62 O07nTMpvGIZeDMCbNMNjK MGgeVmzyj8dpW6qPx0+PC 6iz9ycun03eZ75gPM+PHR kBUN3fWmqOBnv YGBoiP4qFHsmKpN0ZFFxC aKexP95eFCeLElrQv7sqO nxgQnzRV9oVJNnhtlbi37 4AzXta5qdSUFo pXXwUKquCCW2J94iu1O4Y LWwZNApOEJ0eIE4qA2qcT lnbjogbGVmdDsgdmVydGl fTBvwYIvqQ139 IHRvcDsnPlBhdGllbnQgT qKpUTv8R4KfFed0KNDevH klJF7omOYvIPynOr1piGd gwMagWP1wYBEr xciyf196VxBtp1aeWZEee HBlXOzgUCF8Y66kq6T8WX LqVIVaBNL2iDV9mW3xgJn nbjogbGVmdDsg czMrpFhmDQdoKKjxB143O HRvcDsnPkJpcnRoIERhdG T2TL26WK08hWIji4Y9nFI 9F8MgXPTbucax wtaacUL5APMhYRUwaD77U x9juSfnDw1yYJUcUWE5WV OzaPWeE5NjqR3rXxKfNRJ fIBLaM9SobEKl JFgbN136PQduFpG3PIWgi uCbT7OmGLMvjVwkNlK1i7 U4Fl4UZ0B7WS81OR79rTO fy3M1pZA6X7Jm JXOcxtpsjmgtmWC9ESWpS UHqvI80Sg0fwPnvYw5iPF IoDQC0JBJjfTYhZ2QapP5 yOiAjMDAwMDAw N5RqbVTsRPncG628OXztL lN5BZJjxkGaM4PmLQWhsT pwIlF4n4O4Qh0DSXz3DG9 3QT68fMIbz0H9 jFT9Y1PbBPEghzpswrfkf OO5RKQzQVVszE89Hq6rhM eiIn8uEBLjLGX5CRKmgVD gP7UckC2bHdVf WAWpKZPkF7SiaIAuICcgN 194RTkpJdH7XHLaqsFrS6 XmWFKhmKywHtO1p4I0Tt2 EKMDhFE89MTJ6 yWT7LA08HZ01E4ZsBtwer GFibGU+PHRhYmxlIHdpZH RoPScxMDAlJyBzdHlsZT0 fZf8oBAZvLZEi dRhmrALaGyFbw7nkYJXxI DeeID5bqIujD5YtbAK7YA Zqv4f3Ip74X80oS6RvaPP +NFGpqOT9hDR4 jA3tAiLsYsR5BAjkA442Z iRihDVsQfuuf7ytr9queF d5NhX9LCFfikXziUctTYW 4o9QdIz66G52j IHdpZHRoPSIxNSUiIHZhb Uutsp4yuT6qUx3+PGNvbC X4tWM3nD7fGhPeLaF8ABe cJ060LyJimMPl Nljkm1wrs3egrWg1PmUjF YSmquGbtLpdRAS2f8SlDu 45A9UyfGatl9TpOru9bs6 0yBAic3G6iSQ3 G8HzWCToegefeSWcfDlrL S1qYBPvdtbpGAAcfG9nHA CaG4h4SrOiCcF4PWtiA9K ckfK1DQVmtDNn NWsfTJR2Y25aw4W6LIVkA XMqTOR1yYJ1xN6twOlifh ogbGVmdDsgdmVydGljYWw uLWnpL066CTHa vMdoGOHulB9pIPUfkZPiy SvcQI7pMGUuxrsyOoTXKZ REWSwgSEFOTkFIIEdSQUN XMZ82HD37yZCt c4G5yUF0O5TtNICnskfau pacbVJ3ZKLgBOIosH63aD NsDWdtDh8ae2X1u993GBC cOHYssU19Bf3b zWwaVCKlfNIPyL3xkqeig 2wkdbimUbPoRZMwECr8EX f9FYQdaJibAgFsMCO9XzL 4SHG7uSKzmX6r hBwhaudkcR7rRut+MDMvM DkvMjAwMTwvdGQ+PHRkIH V1zJqfEDqjDLAtuG5mQFH mE8d9KxBwAcE0 SJoyZ5TfDBCiapnhLi58f K4sDiGcDmV6XTufD6Gtan K4AYTfdCGcKAvjZHW2S75 gx7Y2CFFjBDQt BWV7uZK5bI7hqIvicrzkk GVmdDsgdmVydGljYWwtYW exL808YJJxuMbtApHxYVu zIKBrYQ49ND60 eUFrn1O8vAU6Y2FrVDScj bsxswgpzFN0QTIvDCUwuN 76nXHtVHttZo0so3X1j36 5MFOvZEGitQ19 He4ttJokDRParVJNtH6du gjgw6qaeitqJeGcLRDlSL d2LPe1BIBtxXaeMjGxLWM 3JuV6UUG5oFBh gS4uqIowxzlqnC8kXhq+R sOVMDfLFQ51EK19uDDse4 E3aDG6Y7SxCNIpumrwsun zqMI3BCCeFNJe sB21pGSjSAtcUn5rc2M0b 637HAEnUWDwdE30Fu4rgF cjAMLtuHYQuD7jluzpu1e vcjogIzAwMDAw ZYh3GRq2ZWUilSwtXmBwB JM7FxG9IZA5pXLmsL1zbH zfljjeoK9rTmq+Z4H6K4Q kPjwvdHI+PC90 XOFrHN37rQBiwSFrx3stz Nq2JuMcQFFbKZK4sXfsCF wrl6AgCAHgE55swQBtc4K 6IGNvbGxhcHNl PeKdhCC3cU9hHNlxtwyfs 4mciwbtDtfej5hcoo79uC 21D16vEFmqUXYiZCQcXBD fFCWluKcqbu0p wE4hPe2+UYPxnCE9tRX1f U5oPuEbWyJ3NTfzU096Bc McmTYpOdohr7vuw3aknQo 9IjIwJSIgdmFs fEjwJRI2a4AjBy14J36jU HdpZHRoPSIyMCUiIHZhbG ycok1opI3yDv0+DQ2ad9z uqe21kB65uZN+ YFUjNXG3dWgqMTyhLRYmz W0hRLyqPlA9ZHFsFnNsjJ 13hAMuAOljQo0whSoouXs pTS6gSIXppoiu b068BlLml2ziDFZfhMQzX SppZFG8O72bb6V3MSSaGZ DfPWE4rBI3cB6rcUdesjm gbGVmdDsgdmVy wEdcXJgbWKgdP310FUYws UojHbImwSLjJ6sgxfIMMC 1lOjwvdGQ+XNGyYSY1bXu rPXddZDDxxU1z RROuD1l7DgJaRbZ3MKpuM 8KmwkK6KCQgtIVtUEVtmA IWjA5bhlrug2qgetqyNqM rSNAoNJu1VYr1 XLXmmTdfDsMwKAQ7HjV0X RS0bREvwV5vxGfxgnfybS 9wOyc+RklOOjwvdGQ+PHR oLWC7hPaiQOlf EFWybV1xJXAmY6q8OsDzR eN0FCtoT2RjnoZ7HQXbkB MmFNWzmUQQeB6joccde8v vcjogIzAwMDAw LMy0BFg8BYIkpQsfTuDiK CE0VfO9TZB0eFEhhZ0mhI ahetjgtK5eIoc+TVJOOjw vdGQ+PHRkIHN0 aQemBAbnHYLnuJ3kSPGnG 3f0ScXsZiH2QOsnU7Lqhn B0BITvtVFvSMKqgGJNiN5 pvnmfh9nlyaxe MxFdTXYsPNz2FGw1NECkv FybUnFoBJR9RnN4VYM2pT YjbA0pdYbcbbtpqF4tLzs +HHC8YJC7OO15 IR01V1EmFcsmgHMaqLT+P HRhYmxlIHdpZHRoPScxMD FpXoNrkZfzZH7hMk0iITE yLWNvbGxhcHNl OiB (more content not included)... Normal [facility] C Throaton 07-31-2020 C Throat Ordered by Discern. Normal throat regi isolated No pathogens isolated Normal [facility] Comment on above: Performed By: #### [id number] ####[facility] (DEFAULT)[address] [place] [address] ED Clinical Summaryon 2020 ED Clinical Summary [facility] ? Urgent Care [address] [place] [address] Clinical Summary PERSON INFORMATION Name: LEIGH MONTOYA Age: 20 Years Sex: FEMALE : 2000 MRN: Acct#: Visit Reason: UC - Sore Throat; THROAT PAIN Arrival: 07/29/2020 09:44:22 Discharge: 07/29/2020 10:23:00 LOS: 000 00:39 Check In: 07/29/2020 09:44:22 Checkout: 07/29/2020 10:23:00 Address: [address] [place] [address] PCP: Flex Wang DO PROVIDER INFORMATION Provider [...] Negative . Impression and Plan Diagnosis Pharyngitis (VXK80-TR J02.9, Discharge, Medical) Plan Condition: Stable. Disposition: Discharged: Time 07/29/2020 10:17:00 (more content not included)... Normal [facility] ED Note - Provideron 021 ED Note [...] Negative . Impression and Plan Diagnosis Pharyngitis (HOG60-GL J02.9, Discharge, Medical) Plan Condition: Stable. Disposition: Discharged: Time 07/29/2020 10:17:00, to home. Patient was given the following educational materials: Pharyngitis, Dvzs-dd-Dume, Pharyngitis, Fixk-xm-Hpca. Follow up with: Flex Wang Within 2 [...] on: 07/29/2020 10:20 EST] Patricia Meeks PA-C [facility] ED Patient Summaryon 021 ED Patient Summary [facility] ? Urgent Care [address] [place] [id number] PATIENT DISCHARGE INSTRUCTIONS Patient Information Name: LEIGH MONTOYA Age: 20 Years Date of : 2000 Reason For Visit: UC - Sore Throat; THROAT PAIN Arrival Time: 07/29/2020 09:44:22 Primary Care Physician: Flex Wang DO Attending Physician: Patricia Meeks PA-C Comment: Patient Education With: Address: When: Flex Wang [address] [facility], [address] [place] [id number] Business (1) Within 2 to 4 days [...] Follow these instructions at home: ? Take kfhs-pjg-pfuridt and prescription medicines only as told by [...] 10/22/2008 Document Revised: 04/18/2018 Document Reviewed: 06/11/2017 [employer] Patient Education ? 2020 I-Stand. Medication Information: The exam and treatment you received today in the [facility] Emergency Department were for an urgent problem and are not intended as complete care. It is important for you to follow up with a doctor, nurse practitioner, or physician?s assistant head cashier for ongoing care. If your symptoms become [...] so we can reach you if necessary. [facility] Emergency Department has provided you with a complete list of medications post discharge. Please inform your douper/provider of your visit and for further instruction [...] Throat (C11 (more content not included)... Normal [facility] Strep Aon 07-29-2020 Strep procedure control Pass Normal [facility] Comment on above: Performed By: #### [id number] ####[facility] (DEFAULT)[address] [place] [id number] Streptococcus A Negative Normal Negative [facility] Comment on above: Performed By: #### [id number] ####[facility] (DEFAULT)[address] [place] [id number] Urgent Care [facility] 021 Urgent Care Record [facility] ? Urgent Care [address] [place] [address] PATIENT DISCHARGE INSTRUCTIONS Patient Information Name: LEIGH MONTOYA Age: 20 Years Date of : 2000 Reason For Visit: UC - Sore Throat; THROAT PAIN Arrival Time: 07/29/2020 09:44:22 Primary Care Physician: Flex Wang DO Attending Physician: Patricia Meeks PA-C Comment: Visit Diagnosis: Diagnoses This Visit Pharyngitis (J02.9) UC - Sore Throat ([id number]) If you received any narcotics, sedation, or [...] With: Address: When: Flex Wang [address] [facility], [address] [place] [id number] Business (1) Within 2 to 4 days [...] and treatment you received today in the [facility] were for an urgent problem and are not intended as complete care. It is important for you to follow up with a doctor, nurse practitioner, or physician?s assistant head cashier for ongoing care. If your symptoms become [...] so we can reach you if necessary. [facility] Urgent [facility] [place] has provided you with a complete list of medications post discharge. Please inform your douper/provider of your visit and for further instruction [...] Follow these instructions at home: ? Take frkq-sgl-ikunwmn and prescription medicines only as told by [...] help righ (more content not included)... Normal [facility] Coding Summaryon 06-27-2020 Coding Summary CODING DATE: 06/27/2020 [facility] STATUS: Home PAYOR: Commercial Insurance ADMIT DX: [...] Nano Padilla Date Saved: 06/27/2020 12:37 pm [facility] ED Clinical Summaryon 2020 ED Clinical Summary [facility] ? Urgent Care [address] [place] [address] Clinical Summary PERSON INFORMATION Name: LEIGH MONTOYA Age: 19 Years Sex: FEMALE : 2000 MRN: Acct#: Visit Reason: UC - Ear Pain; UC - Ear Pain; RIGHT EAR PAIN Arrival: 06/18/2020 15:00:59 Discharge: 06/18/2020 15:27:00 LOS: 000 00:27 Check In: 06/18/2020 15:00:59 Checkout: 06/18/2020 15:27:00 Address: [address] [place] [address] PCP: Flex Wang DO PROVIDER INFORMATION Provider Role Assigned Unassigned Monica Dunn INFORMATICS CONSULTANT Nurse 06/18/2020 15:03:15 Marv Shannon ED PA 06/18/2020 15:03:24 VITALS INFORMATION Vital Sign Triage Latest Temperature Tympanic Temperature Temporal Artery Pulse Rate O2 Sat 98 % 98 % Respiratory Rate Blood Pressure /78 mmHg /78 mmHg MEDICAL INFORMATION Medications Given: Allergy Information: sulfamethoxazole; ibuprofen PHYSICIAN DOCUMENTATION DISCHARGE INFORMATION: Discharge Disposition: Home Discharge Location: Home PATIENT EDUCATION INFORMATION Instructions: Otitis Media, Adult, Fwak-ru-Hgtv Follow-Up: With: Address: When: Flex Wang [address] [facility], [place] [address] Business (1) Comments: Begin on the amoxicillin-clavulana te antibiotic take every 12 hours for the next 10 days Follow-up with your primary care physician in 3-5 days for reevaluation, sooner if any worsening symptoms DIAGNOSIS: Otitis media, right Patient Understands: Yes - Patient/family/caregi nela verbalizes understanding of instructions given Comment: [facility] ED Patient Summaryon 021 ED Patient Summary [facility] ? Urgent Care [address] [place] [address] PATIENT DISCHARGE INSTRUCTIONS Patient Information Name: LEIGH MONTOYA Age: 19 Years Date of : 2000 Reason For Visit: UC - Ear Pain; UC - Ear Pain; RIGHT EAR PAIN Arrival Time: 06/18/2020 15:00:59 Primary Care Physician: Flex Wang DO Attending Physician: Marv Shannon Comment: Patient Education With: Address: When: Flex Wang [address] [facility], [address] [place] [phone] Business (1) Comments: Begin on the amoxicillin-clavulana [...] Follow these instructions at home: ? Take vapb-bxs-dcfojmd and prescription medicines only as told by [...] 10/22/2008 Document Revised: 04/18/2018 Document Reviewed: 05/27/2017 [employer] Patient Education ? 2019 [employer]. Medication Information: The exam and treatment you received today in the [facility] Emergency Department were for an urgent problem and are not intended as complete care. It is important for you to follow up with a doctor, nurse practitioner, or physician?s assistant head cashier for ongoing care. If your symptoms become [...] so we can reach you if necessary. [facility] has provided you with a complete list of medications post discharge. Please inform your douper/provider of your visit and for further instruction on these medications. Any specific questions regarding your chronic medications and dosages should be discussed with your primary care physician(s) and/or pharmacist. New Medications [facility] [address], [address] [place] [phone], [phone] amoxicillin-clavulana te (Augmentin 500 mg-125 mg oral [...] media, right (H66.91) UC - Ear Pain ([id number]) UC - Ear Pain ([id number]) If you received any narcotics, sedation, or any other medication that causes drowsiness for the next 24 hours, unless otherwise directed: ? Do not drive a car. ? Do not operate machinery such as power tools, lawn mowers, drills, sewing machines, or stoves ? Avoid alcoholic beverages and drugs for allergies, n (more content not included)... Normal [facility] Urgent [facility] Note- Provideron 06-18-2020 Urgent Care [...] Impression and Plan Diagnosis Otitis media, right (LEO02-HD H66.91, Discharge, Medical) Plan Prescriptions: [facility] prescriptions Pharmacy: Augmentin 500 mg-125 mg oral tablet (Prescribe): 1 tab(s), PO, q12hr, for 10 day(s), 20 tab(s), 0 Refill(s). Patient was given the following educational materials: Otitis Media, Adult, Znjz-lc-Wsex. Follow up with: Flex Wang Begin on the amoxicillin-clavulana te antibiotic take every 12 hours for the next 10 days Follow-up with your primary care physician in 3-5 days for reevaluation, sooner if any worsening symptoms. Counseled: Patient, Regarding diagnosis, Regarding diagnostic results, Regarding treatment plan, Regarding prescription, Patient indicated understanding of instructions. Normal [facility] [place] 021 Urgent Care Record [facility] ? Urgent Care [address] [id number] PATIENT DISCHARGE INSTRUCTIONS Patient Information Name: LEIGH MONTOYA Age: 19 Years Date of : 2000 Reason For Visit: UC - Ear Pain; UC - Ear Pain; RIGHT EAR PAIN Arrival Time: 06/18/2020 15:00:59 Primary Care Physician: Flex Wang DO Attending Physician: Marv Shannon Comment: Visit Diagnosis: Diagnoses This Visit Otitis media, right (H66.91) UC - Ear Pain ([id number]) UC - Ear Pain ([id number]) If you received any narcotics, sedation, or [...] With: Address: When: Flex Wang [address] [facility] [place] [address] [place] [address] Business (1) Comments: Begin on the amoxicillin-clavulana te antibiotic take every 12 hours for the next 10 days Follow-up with your primary care physician in 3-5 days for reevaluation, sooner if any worsening symptoms Medication Information: The exam and treatment you received today in the [facility] were for an urgent problem and are not intended as complete care. It is important for you to follow up with a doctor, nurse practitioner, or physician?s assistant head cashier for ongoing care. If your symptoms become [...] so we can reach you if necessary. [facility] has provided you with a complete list of medications post discharge. Please inform your douper/provider of your visit and for further instruction on these medications. Any specific questions regarding your chronic medications and dosages should be discussed with your primary care physician(s) and/or pharmacist. New Medications [facility] [address], [address] [place], [place] [id number], [phone] amoxicillin-clavulana te (Augmentin 500 mg-125 mg oral [...] Follow these instructions at home: ? Take uwxd-xrb-zmtmlxl and prescription medicines only as told by [...] (paralyzed). ? You (more content not included)... [facility] Consent Formson 04-28-2020 Consent Forms [id number]-28-2020 Provider Orders [id number] .00[facility] Coding Summaryon 04-25-2020 Coding Summary CODING DATE: 04/25/2020 [facility] STATUS: Home PAYOR: Commercial Insurance ADMIT DX: [...] Nano Padilla Date Saved: 04/25/2020 02:38 pm [facility] .QC Respiratory Panel 2.1 (B ioFire)on 04-22-2020 Internal Control-Resp Panel 2.1(BioFire) Pass [facility] Comment on above: Order Comment: Order ed by Holley.[[id number]] Performed By: #### 6 [id number], [id number] ####[facility] (DEFAULT)[address] [place] [address] Respiratory Panel 2.1 (BioFi re)on 04-22-2020 Adenovirus -BioFire Not detected Normal Not Detected [facility] Comment on above: Performed By: #### 6 [id number], [id number] ####[facility] (DEFAULT)[address] [place] [address] Bordetella parapertussis -BioFire Not detected Normal Not Detected [facility] Comment on above: Performed By: #### 6 [id number], [id number] ####[facility] (DEFAULT)[address] [place] [address] Bordetella pertussis -BioFire Not detected Normal Not Detected [facility] Comment on above: Performed By: #### 6 [id number], [id number] ####[facility] (DEFAULT)[address] [place] [address] Chlamydia pneumoniae -BioFire Not detected Normal Not Detected [facility] Comment on above: Performed By: #### 6 [id number], [id number] ####[facility] (DEFAULT)[address] [place] [address] Coronavirus 229E (Not COVID-19) -BioFire Not detected Normal Not Detected [facility] Comment on above: Performed By: #### 6 [id number], [id number] ####[facility] (DEFAULT)[address] [place] [address] Coronavirus HKU1 (Not COVID-19) -BioFire Not detected Normal Not Detected [facility] Comment on above: Performed By: #### 6 [id number], [id number] ####[facility] (DEFAULT)[address] [place] [address] Coronavirus NL63 (Not COVID-19) -BioFire Not detected Normal Not Detected [facility] Comment on above: Performed By: #### 6 [id number], [id number] ####[facility] (DEFAULT)[address] [place] [address] Coronavirus OC43 (Not COVID-19) -BioFire Not detected Normal Not Detected [facility] Comment on above: Performed By: #### 6 [id number], [id number] ####[facility] (DEFAULT)[address] [place] [address] Employed in healthcare? No Invalid Interpretation Code [facility] Comment on above: Performed By: #### 6 [id number], [id number] ####[facility] (DEFAULT)[address] [place] [address] Group care resident? No Invalid Interpretation Code [facility] Comment on above: Performed By: #### 6 [id number], [id number] ####[facility] (DEFAULT)[address] [place] [address] Human Metapneumovirus -BioFire Not detected Normal Not Detected [facility] Comment on above: Performed By: #### 6 [id number], [id number] ####[facility] (DEFAULT)[address] [place] [address] Human Rhinovirus/Enterovir us -BioFire Not detected Normal Not Detected [facility] Comment on above: Performed By: #### 6 [id number], [id number] ####[facility] (DEFAULT)[address] [place] [address] In ICU? No Invalid Interpretation Code [facility] Comment on above: Performed By: #### 6 [id number], [id number] ####[facility] (DEFAULT)[address] [place] [address] Influenza A (no subtype) -BioFire Not detected Normal Not Detected [facility] Comment on above: Performed By: #### 6 [id number], [id number] ####[facility] (DEFAULT)[address] [place] [address] Influenza A -BioFire Not detected Normal Not Detected [facility] Comment on above: Performed By: #### 6 [id number], [id number] ####[facility] (DEFAULT)[address] [place] [address] Influenza A H1 -BioFire Not detected Normal Not Detected [facility] Comment on above: Performed By: #### 6 [id number], [id number] ####[facility] (DEFAULT)[address] [place] [address] Influenza A H1-2009 -BioFire Not detected Normal Not Detected [facility] Comment on above: Performed By: #### 6 [id number], [id number] ####[facility] (DEFAULT)[address] [place] [address] Influenza A H3 -BioFire Not detected Normal Not Detected [facility] Comment on above: Performed By: #### 6 [id number], [id number] ####[facility] (DEFAULT)[address] [place] [address] Influenza B -BioFire Not detected Normal Not Detected [facility] Comment on above: Performed By: #### 6 [id number], [id number] ####[facility] (DEFAULT)[address] [place] [address] Mycoplasma pneumoniae -BioFire Not detected Normal Not Detected [facility] Comment on above: Performed By: #### 6 [id number], [id number] ####[facility] (DEFAULT)[address] [place] [address] Parainfluenza Virus 1 -BioFire Not detected Normal Not Detected [facility] Comment on above: Performed By: #### 6 [id number], [id number] ####[facility] (DEFAULT)[address] [place] [address] Parainfluenza Virus 2 -BioFire Not detected Normal Not Detected [facility] Comment on above: Performed By: #### 6 [id number], [id number] ####[facility] (DEFAULT)[address] [place] [address] Parainfluenza Virus 3 -BioFire Not detected Normal Not Detected [facility] Comment on above: Performed By: #### 6 [id number], [id number] ####[facility] (DEFAULT)[address] [place] [address] Parainfluenza Virus 4 -BioFire Not detected Normal Not Detected [facility] Comment on above: Performed By: #### 6 [id number], [id number] ####[facility] (DEFAULT)[address] [place] [address] status? Not Invalid Interpretation Code [facility] Comment on above: Performed By: #### 6 [id number], [id number] ####[facility] (DEFAULT)[address] [place] [address] Respiratory Syncytial Virus -BioFire Not detected Normal Not Detected [facility] Comment on above: Performed By: #### 6 [id number], [id number] ####[facility] (DEFAULT)[address] [place] [address] SARS-CoV-2 (COVID-19) RNA OZZIE+probe Ql (Unsp spec) Not detected Normal Not Detected [facility] Comment on above: Performed By: #### 6 [id number], [id number] ####[facility] (DEFAULT)[address] [place] [address] SARS-CoV-2 (COVID-19) RNA OZZIE+probe Ql (Unsp spec) No Invalid Interpretation Code [facility] Comment on above: Performed By: #### 6 [id number], [id number] ####[facility] (DEFAULT)[address] [place] [address] Symptomatic as defined by CDC? No Invalid Interpretation Code [facility] Comment on above: Performed By: #### 6 [id number], [id number] ####[facility] (DEFAULT)[address] [place] [address] Vital Signs Date Time Vital Sign Value Performing Clinician Facility 12-06-2021 16:30-0400 Body height 160.02 cm Ezequiel Melo Other [facility] Other 12-06-2021 16:30-0400 Body mass index (BMI) [Ratio] 41.62 kg/m2 Ezequiel Melo Other [facility] Other 12-06-2021 16:30-0400 Body weight 106.6 kg Ezequiel Melo Other [facility] Other 10-11-2021 14:45-0400 Body height 160.02 cm Ezequiel Melo Other [facility] Other 10-11-2021 14:45-0400 Body mass index (BMI) [Ratio] 41.98 kg/m2 Ezequiel Melo Other [facility] Other 10-11-2021 14:45-0400 Body weight 107.5 kg Ezequiel Melo Other [facility] Other 10-11-2021 14:45-0400 Diastolic blood pressure 79 mm[Hg] Ezequiel Melo Other [facility] Other 10-11-2021 14:45-0400 Systolic blood pressure 128 mm[Hg] Ezequiel Melo Other [facility] Other Encounters Encounter Date Encounter Type Care [...] 12-06-2021 End: 12-06-2021 ambulatory Ezequiel Melo Other [facility] Other Start: 12-06-2021 Patient encounter procedure Ezequiel Melo [facility] Start: 10-11-2021 End: 10-11-2021 ambulatory Ezequiel Melo Other [facility] Other Start: 10-11-2021 FQ visit new patient Ezequiel Melo [facility] Payers Date Payer Category Payer Unknown [id number] 2000 Unknown [id number] 2.16.84 [id number] 2000 Unknown [id number] 2.16.84 [id number] 2000 Unknown [id number] 2.16.84 [id number] 2000 Unknown [id number] 2.16.84 [id number] 2000 Unknown [id number] 2.16.84 [id number] 2000 Unknown [id number] 2.16.84 [id number] 2000 Unknown [id number] 2.16.84 [id number] 2000 Unknown [id number] 2.16.84 [id number] 1959 Unknown [id number] Medicaid [id number] 2. [id number] Social History Date Type Detail Facility Sex Assigned At [facility] Other Evaluation note 12-06-2021 Note Date & Type Note Facility 12-06-2021 Evaluation note Encounter Date Diagnosis Assessment Notes Nov, Dyspepsia (ICD-10 - K30) patient states does have some bloating in the left center she does have pain noted. patient is advised that we can start levsin and refer to early childhood services coordinator for food testing. [facility] Other Evaluation note 05-25-2022 Note Date & Type Note Facility 10-11-2021 Evaluation note Encounter Date Diagnosis Assessment Notes September, Bloating (ICD-10 - R14.0) September, Dyspepsia (ICD-10 - K30) September, Abdominal pain (ICD-10 - R10.9) [facility] Other Clinical Note 04-05-2021 Note Date & [...] This may take several hours. ? Take fdzj-qon-tyfetuz and prescription medicines only as told by your health care provider. ? When you can walk without pain, wear supportive shoes that have stiff soles. Do not wear flip-flops, and do not walk barefoot. ? Keep all follow-up visits as told by your health care provider. This is important. Contact a health care provide (more content not included)... [facility] Clinical Note 07-29-2020 Note Date & Type Note Facility 07-29-2020 Note Patient Education Ma terials Follows:Disease Pharyngitis Pharyngitis is a sore throat (pharynx). This is when there is redness, pain, and swelling in your throat. Most of the time, this condition gets better on its own. In some cases, you may need medicine. Follow these instructions at home: ? Take myin-nxs-ailpjrw and prescription medicines only as told by [...] 10/22/2008 Document Revised: 04/18/2018 Document Reviewed: 06/11/2017 [employer] Patient Education ? 2019 [employer]. [facility] Clinical Note 06-18-2020 Note Date & Type Note Facility 06-18-2020 Note Patient Education Ma terials Follows: Otitis Media, Adult Otitis media means that the middle ear is red and swollen (inflamed) and full of fluid. The condition usually goes away on its own. Follow these instructions at home: ? Take xzqv-rqs-fsumigo and prescription medicines only as told by [...] 10/22/2008 Document Revised: 04/18/2018 Document Reviewed: 05/27/2017 [employer] Patient Education ? 2019 [employer] [facility]. [facility] Clinical Note 04-22-2020 Note Date & Type Note Facility 04-22-2020 Note Nasal swab performed without complication. Patient tolerated well. Education given. Patient verbalized understanding. [Electronically Signed on: 04/22/2020 15:05 EST] Miri Nuñez RN [Verified on: 04/22/2020 15:05 EST] Miri Nuñez RN [facility] History general Narrative - Reported Note Date & Type Note Facility History general Narrative - Reported Type Medical History PCOS Medical History Endometriosis Surgical History laparoscopy - endometriosis [facility] Other Reason for referral (narrative) Note Date [...] is able to get in before this. [facility] Other Reason for visit Narrative Note Date & Type Note Facility Reason for visit Narrative PATIENT HERE AT THE REQUEST OF DR. VERGARA FOR EVALUATION & TREATMENT OF BLOATING [facility] Other Reason for visit Narrative Note Date [...] of the side effects that were listed. [facility] Other Summary Purpose Family History No Family History Records FoundNo Family History Records FoundNo Family History Records FoundNo Family History Records Found Advance Directives No Advanced Directives Records FoundNo Advanced Directives Records FoundNo Advanced Directives Records FoundNo Advanced Directives Records Found Additional Source Comments INFORMATION SOURCE (unrecogn ized section and content) DATE CREATED AUTHOR 04/21/2021 [facility] DATE CREATED AUTHOR AUTHOR'S ORGANIZ ATION 11/08/2021 [facility] DATE CREATED AUTHOR AUTHOR'S ORGANIZ ATION 09/06/2022 [facility] DATE CREATED AUTHOR AUTHOR'S ORGANIZ ATION 01/04/2024 [facility] Specialists [facility] FOR RECORDS PERTAINING TO PATIENTS WHO [...] BE BASED ON THE PRIMARY CLINICAL RECORDS. [employer] provides no warranty or guarantee of the accuracy or completeness of information in this document.
[2024-01-20 18:06] VITALS: BP 123/76; PULSE 107
== END 2024-01-20 18:31 | disposition home or self-care (01) ==
LOC: FBCO 07:01 → FBC 17:56
PROVIDERS: Visit Provider Obstetrics & Gynecology
DX: O16.3 Unspecified maternal hypertension, third trimester (principal); Z3A.33 33 weeks gestation of pregnancy
CPT/HCPCS: 59025

== ENCOUNTER 2024-01-22 14:17 | Outpatient (OUT) | payer OTHER, SELFPAY ==
--- NOTE | 2024-01-22 14:20 | US_ITS ---
[address] [address] Patient Name: SHAQUILLE VIEYRA MRN: [id number] date: 2000 Sex: F Assigned Patient Location: [facility] Current Patient Location: [facility] Accession/Order Number: [id number] Exam Date: 01/22/2024 14:22 Report Date: 01/22/2024 16:11 At the request of: MIRIAM HAWLEY Procedure: US OB growth EXAMINATION: US OB growth HISTORY: Excessive growth COMPARISON: Ultrasound OB growth 12/02/2023 FINDINGS: Heart Rate: 142.11 bpm Amniotic Fluid Volume: 10.8 cm; normal range. Number: 1 Position: CEPHALIC BIOMETRY: BPD: 8.60 cm; 34 weeks 5 days; 79.90 % HC: 31.81 cm; 35 weeks 6 days; 74.40 % AC: 29.52 cm; 33 weeks 4 days; 54.60 % FL: 6.33 cm; 32 weeks 5 days; 21.30 % EFW: 2236.74 g; 47.60 % FL/AC: 21.42 FL/BPD: 73.57 HC/AC: 1.08 GESTATIONAL AGE: Age by EDC: 33 weeks 3 days KEEGAN by EDC: 2024-03-08 Age by US: 34 weeks 2 days KEEGAN by US: 2024-03-02 US/US OB growth IMPRESSION: 1. Single live intrauterine with growth detailed above. Electronically authenticated by: KEEGAN HUMPHREY Date: 01/22/2024 16:11
--- OUTSIDE RECORDS SUMMARY | 2024-01-22 14:25 | XMS_ITS | CCD ---
Author Organization [facility] Care Team Providers Care Avionics Mechanic Name Role Phone Ezequiel Melo Unavailable [facility] [place] [place], DR MIRANDA Primary Care Unavailable JAI ., DR UNDERWOOD Admitting Unavailable JAI ., DR UNDERWOOD Consulting Unavailable JAI ., DR UNDERWOOD Attending Unavailable [facility] DR MIRANDA Primary Care Unavailable JAI ., DR UNDERWOOD Admitting Unavailable JAI ., DR UNDERWOOD Consulting Unavailable JAI ., DR UNDERWOOD Attending Unavailable YASMINE VERGARA Attending Unavailable YASMINE VERGARA Attending Unavailable YASMINE VERGARA Attending Unavailable MIRIAM HAWLEY Attending Unavailable YASMINE VERGARA Attending Unavailable Allergies Allergy Classification Reported Allergen(s) Allergy Type Date of Onset Reaction(s) Facility (2 sources) Sulfacetamide Drug [facility]ergy [facility] Other (1 source) Sulfonamides (Antibiotic) Drug allergy (disorder) [facility] Repository Medications Current Medications Medication [...] to 29on 09-06-2022 . . Normal [facility] Comment on above: Performed By: #### 4 [id number] #### [facility] [address] [place] [address] Dr. Dat Wesley Age Gdln ACOG Testing 21-29 [facility] Comment on above: Performed By: #### 4 [id number] #### [facility] [address] [place] [address] Dr. Dat Wesley DIAGNOSIS: Comment [facility] Comment on above: Result Comment: NEGA TIVE FOR INTRAEPITHELIAL LESION OR MALIGNANCY. Performed By: #### 4 [id number] #### [facility] [address] [place] [address] Dr. Dat Wesley Methodology: Comment [facility] Comment on above: Result Comment: This liquid based ThinPrep(R) pap test was screened with the use of an image guided system. Performed By: #### 4 [id number] #### [facility] [address] [place] [address] Dr. Dat Wesley Note: Comment [facility] Comment on above: Result Comment: The Pap smear is a screening test designed to aid in the detection of premalignant and malignant conditions of the uterine cervix. It is not a diagnostic procedure and should not be used as the sole means of detecting cervical cancer. Both false-positive and false-negative reports do occur. . Performed By: #### 4 [id number] #### [facility] [address] [place] [address] Dr. Dat Wesley Performed by: Comment [facility] Comment on above: Result Comment: [employer] Model (ASCP) Performed By: #### 4 [id number] #### [facility] [address] [place] [address] Dr. Dat Wesley Reflex Criteria: Comment [facility] Comment on above: Result Comment: The HPV DNA reflex criteria were not met with this specimen result therefore, no HPV testing was performed. . Performed By: #### 4 [id number] #### [facility] [address] [place] [address] Dr. Dat Wesley Specimen adequacy: Comment Normal [facility] Comment on above: Result Comment: Sati sfactory for evaluation. Endocervical and/or squamous metaplastic cells (endocervical component) are present. Performed By: #### 4 [id number] #### [facility] [address] [place] [address] Dr. Dat Wesley HCG,Urineon 11-03-2021 Beta HCG ( test) Ql (U) Negative Normal [facility] Comment on above: Result Comment: PERF ORMED BY: [address] [place] [id number] PATHOLOGIST TERMINAL MANAGER SULTANA PETE M.D. Performed By: #### U HCG #### [place] [id number] [facility] Charles 11-03-2021 L - -------- Specimen: [id number] Received: 11/03/21 Status: AYDIN Alex Num: [id number] Spec Type: Surgical Subm Dr: Ezequiel Melo MD Tissues: A Small Intestine - Biopsy/Polyp (SMALL BOWEL) Procedures: HE Stain/2, Gross/Micro L4 -------- Patient Age/Sex Location Account Attending Physician -------- Leigh Singh [id number] Ezequiel Melo MD -------- SPEC NUM: [id number] RECD: 11/03/21 STATUS: AYDIN JOHNSON NUM: [id number] PAPI: 11/03/21 [facility] DR: Ezequiel Melo MD ENTERED: 11/03/21 [facility] DR: SPEC TYPE: Surgical DEPT: S ORDERED: [...] is performed. This case is interpreted at [facility], [place], [place] -------- Specimen: Received: 11/03/21 Status: RAFAELChino Johnson Num: [id number] Spec Type: Surgical Subm Dr: Ezequiel Melo MD Tissues: A Small Intestine - Biopsy/Polyp (SMALL BOWEL) Procedures: HE Stain/2, Gross/Micro L4 -------- Patient: Leigh Singh [id number] (Continued) -------- Specimen: [id number] Received: 11/03/21 (Continued) Signed (signature on file) Gabe Ellis MD 11/06/21 1703 -------- Specimen: [id number] Received: 11/03/21 Status: RAFAELChino Johnson Num: [id number] Spec Type: Surgical Subm Dr: Ezequiel Melo MD Tissues: A Small Intestine - Biopsy/Polyp (SMALL BOWEL) Procedures: HE Stain/2, Gross/Micro L4 -------- Patient: Leigh Singh [id number] (Continued) -------- Specimen: Received: 11/03/21 (Continued) CPT Codes 33655 -------- -------- Specimen: Received: 11/03/21 Status: ADYIN Johnson Num: [id number] Spec Type: Surgical Subm Dr: Ezequiel Melo MD Tissues: A Small Intestine - Biopsy/Polyp (SMALL BOWEL) Procedures: MARIANN Stain/2, Gross/Micro L4 -------- Patient: FranciscoLeigh Craig [id number] (Continued) -------- Signed (signature on file) Gabe Ellis MD 11/06/21 1703 Normal [facility] SARS-CoV-2 (COVID-19) RNA OZZIE+probe Ql (Unsp spec) Negative Normal Negative [facility] Comment on above: Order Comment: Healt hcare Worker?: N Result Comment: Testing for SARS-CoV-2 by RT-PCR This test was developed and its performance characteristics determined by [employer]) and validated at the [facility]. This test has not been FDA cleared [...] is terminated or revoked sooner. PERFORMED BY: [address] [place] [address] PATHOLOGIST TERMINAL MANAGER SULTANA PETE M.D. Performed By: #### C OVID 19 [facility] #### [address] Coding Summaryon 04-19-2021 Coding Summary HTMLBase 64 KihqsizhUDs2cHy+PGhlY WQ+VW5RNDKaW16phDSzjW 9TD5hDFC9QFCQGTMLUOQ2 XEF9emDI5FBenK9FggiVu EekoySNfII65GTe6TEW1r VowPJmzaQ8idDGzQ0m5Nw IkBE04tA40CHqaSYIeRvE 3LjZpbjsgbWFy G2qsLnQauOJmEcc+PHRhY mxlIHdpZHRoPScxMDAlJy KriJybTA1jBe5pTWUtJRB vbGxhcHNlOiBj y6avVZUqWYeoVO0ouVrzS 7OaaEX2YUDup7c0Zk91eR I+JBQoOYV0bPkzAEpla36 5QgIgy4bbUEV1 qUAcXYonFCA8M21oa8Z3H FIyLQVeFGH1yPJ6lX3joL qylnpaR2FunLAmEdH8RTK 4cQLowE1ycRed ffmhxF7lIaz+W23RTS0UL YDJCU4CJay0Z0MpDtgxmN I+SH57RGKeOD23bVLrjPG wt4ykrKz7SaKp VTZaTHP0aTqaKTesk1MxP OLpI08dqMTcd3D5EWSgtJ mmpEGuUqXbpTJ8qO5jXVq uosqcz9ojeuig Ktadb2jtbv30uW33G00uV OpgVTHaSMM5NQLiYKYxcZ kqaj6cnW7hTh2+RExmt4k qq0jsfKi8PoBw MDTbtiGtrVcqIFU3a8ZvK t13B5WckSqwb8AnIhd6jb 82eJUkx7A3tSU8GIaxKSV xqT7hTIwrPqY2 AGJlVcElyS97oYZqTGjtI u0jmXghoEebQG1pTMGggw kjKPLieI9sVUVgnPSvzAf yNX9nCRYzblzv b300UpWeFEC8ENSptPKvW 3OzhI0rZpDkUOAxFXRgS3 YquZBdDLfkC811XGxaAhH 2NXUaprNvW3Ot HOLrmIojNfI6z0C8Pi3Jg 2DvisueNBR2LArfLARlRd ChToCdFkI4M4OxGej9IVJ ztXsoYL3cW9El VSAgjkfigccikLQ4DPUwY CAshZ00cPXaBBdkQq4as6 V1l300AKHrEWUfrG44Rz9 udDogMTBwdCBU iP9mxdhvq7tvcudbPbGpO ZNeXHw0IPa7JSAqiJxfBs QbTLW7QmT5YQP6sAFmcW2 jkBnnvqryjO1f Oyc+G31bzB4gHTP6IHT9w cjtMCJbxsNjUO24JZ56E0 RyPjwvdGFibGU+PGRpdiB ugOlxOH4lEnPd p0dpb3AzNVbyO4BfVEMtN TplTpt8ATTsAIM6eLT7jY 5hPHRhQCjnx6S5aNH0I8K eaqNqrs7av0sq KNJiAAkkB54csNEia5R5N JKybPK2NYZzjEalPaGatD 93Oyc+SIKvtQaqz2PyNsn dl4ptp0tibKy2 XiBdTLDicnPymCvkPCG5o 4MpJu31S15kQJnhXDUqJX NxHHNjJMIjaOhiii2hbO7 wIi8+PGNvbCB3 tBU8bM7pJBQmUhG0KOtpH 002DeJwaJArPznzs5pti7 baxUk7IvXzYTNwumOrnAv vBWD0l3CkEc23 D82bHYybABPfSLJmLCNyX AGgtEojkh6uoT4wCt6+PC 9kz1jalr79sA88vEX+PHR eGKU2iSdnPYfe DJZxyJ5dNAqyAtS8DLTtX vOteR69yWSmLUbjDy1ogL mlbTgyTY9sLECrmqyat17 7UpOeh0thIUXu tHVeHHyhDSU5U24ic8M4G VTpYHJhSZK0rXD4qR9npZ lnbjogbGVmdDsgdmVydGl zWCcgQSrqX274 IHRvcDsnPlBhdGllbnQgT kDjWSn7B5BuHrn9AQAetA odHM4mgOKbGUqoDt0unWs pnJrzLW9uLLZv qhrrr925PvJxo6grHCYys YJsKVjiHUO3V60jc2Z7XX EzUKVwOGF5wGA0cU3mvPb nbjogbGVmdDsg kqWrsNjqNSbeURgdU903M HRvcDsnPkJpcnRoIERhdG W9US25PW75wPJzo3X4zVS 0V6XsFEJgsfpd xagrjAV5ZXSoAHGddS32B x3nyBxjAw1cNWKgLMX3NT GusSAsZ2DemQ0qHsJvSGC jVHLyD1PnqASa QTtnQ985HBulGoE9BKGho mTpB8VuVMHqzAjjGeJ1j0 J5Dm5QQ4B9QZ85IS44uJE vv4U3mLO8T3Ta PAOsshzsngpztRO1OVRnV POtsI39Ux9ksOxuQb1gKF WdLAW9FBIjsNUhG4GpzZ6 yOiAjMDAwMDAw T8VtnSXtFVowQ614WDtmV nY0ZJVqqrYlB8DaCKRjyI quAcE1q3W7Eh5BPBl9WC1 4PO50qPOyo6E2 eFL3Y1BcGPPkflmglerww YB0LGZaFOUxmH00Xb5gvZ tiIl3kNRFkYSV4SKCxdYQ kV3AxzI4yNeRr ZUPcHOYmR7QzuIZjXCzcL 893NPstRgT8GOPvcwMcN9 JcNZOiwEixLaA9n0J8Uc8 EDGXsHR21YRR2 vRU9TG31SM17X2MqMpnut GFibGU+PHRhYmxlIHdpZH RoPScxMDAlJyBzdHlsZT0 fMg8vHLZcJNIq bCvbdRHiPiDck2brJVWgO RmtEN8bdBmsQ4HbzFC2WZ Xvj4v3Uk82O47dM7RtiAT +ZMDrcMC1gXT7 cX9aHaGpQrD7HVckL735B lQweCMpQlukn6git9rlhZ x2BhS3HBEdanTgtSfcOWD 7z6NjBw32D54x IHdpZHRoPSIxNSUiIHZhb Rjwnd9zrT8lRf1+PGNvbC K5nND9pL5lVgYnEnV0EQs wX746EfOmwDPd Msocz6npe0ticZu5ZbVfR IEiboDriBdjGEC2f5WnBi 00X9FfmWjof2KqUpk3xd4 1iVGhl3U1fOP2 B4XjBBDnohigtYMzoIowL L5xPLGeavdtWMSvpX4gTP WjL0l6LaMqVhL9RJuiL1N rwzS2TVBcoRUr LHciLNE6Y97ki9L6FINmR XImYAJ6cWT8iC2ofOsluf ogbGVmdDsgdmVydGljYWw hQRfuR323CCUp cIwbVUTduZ2pQRRdnVOgi KddOV9fWYGzzproXcOAWD REWSwgSEFOTkFIIEdSQUN QFZ22YK19iEAo x7A9aAD3G5HoGGZilmawg vucoWM8NDTqKXQwcQ26uK FyJUvhPy3qx6L9u112KGT uSHOvyT75Us7s pMbvIEMjkZJUpM1vmlxxt 5cfkcssVhPsSOPdJSy1WG h1YQVuoIkdCfMkSTY2WxT 2BZI3aMEnoL8u aAwpddkfyL8uYwm+MDMvM DkvMjAwMTwvdGQ+PHRkIH K6oVxoJFbaQOOixY7rNCI sT0u5NtLcUlF0 MJisR3RyEJUjzznuDx25w P1tGsTgUaN6GLgyZ6Ahtd I5MUOxeZEeAZofIJE0Y42 ds1E6QQKrXVEg XFL3eEC1mS3cdKkenycod GVmdDsgdmVydGljYWwtYW ttH471OULbvTmsTnNeYBu gRWCgWJ47BR58 gKNkt3V0wFY7K3KrZRQvk kqcdlfnaCF2ZQKdWOZgjD 95sLNqJNrvHl7eu6G5c54 5CYVdVHOftA27 Av9dnMtkSPOdqKVEmS1hz khga0cvnvewRkItMEJwSZ x2BCt3ACOnmQgqIrCkUKD 3NeM3LKF6gAHr uF4hrCvdnigqeS8xSmq+R sZCRIyGDB66AE94lWGxh8 Q5cBV3M0YwLAIbcinedkz oaHP4ZFKzIFEr uF24fOWhPHesTt8kl2N7w 188KFIfQZCtvI42Hz4kqH bxOZYpgDXSpK8itqtvq1x vcjogIzAwMDAw MEb7ZAt3LMFzcLqtFlHhO HU1StJ5WAS8sFWjoW9flB bwmpuqkR5uXxs+S4K3I3V kPjwvdHI+PC90 BUJiJZ46xCPauTRmk4vxn Zv8OwZjASHiCVZ7kOifRF nxr8FuUADqW69gwNVsz1A 6IGNvbGxhcHNl IqDfnOD4iH7iBIowttqvx 1wyzvffMlutn3vdog21yS 82D75bHParBXJsYWLmHHJ yPYAzpAgsxp7q vO5lRk6+DJWswSE9xTQ3x Q9iMgUvCaP8BBkhA870Zy PzhKAwGmivr8mbe0iswPp 9IjIwJSIgdmFs wJmtEVE3j5WeLm29O36gR HdpZHRoPSIyMCUiIHZhbG rnak3rhA7tGa2+CR2zb5p luv33qJ62pBE+ DWSeALJ6yFoxYEndYYYnp Q4iXZucMlB2JGUxMjLoyM 68xXMgAJreKx3qqPihdGt xLX8oTCViziix k377OxWyo8fyTXXccMJoU RuzDGB0H52kk0L5XKVkGX QqVJP1pUW2rO7rgThltiy gbGVmdDsgdmVy bQkuSJdbFJxoN395MVUnc WnvBsEycQFnX0ieytIWHV 1lOjwvdGQ+JEYsZFG6vNy nAAwpBFQihN6p EVYjC2j1BtMrQvN3EMxeL 8EzpcT7ZBUqeCDiFFTioL WYdC3xfngws1clxfuaSjR iMDKdRMl2LTn1 WWLzlQmoHiVmXOG3KuU8R QM3pAIvwT7kuFneuffeyH 9wOyc+RklOOjwvdGQ+PHR iDKD0bNplKYiz RTCtnI8xUIHvQ1i8MqIgW mF3FLqbZ5GichR0WCQsmN LeXSLwhXNPoE8kavznz4u vcjogIzAwMDAw DQn7LKw3LOFytDjqNcQlS XW4AoL3WCN4vQUomN3saE liqcujnU6xEcp+TVJOOjw vdGQ+PHRkIHN0 wWliGRxmXHIklT6fQALsX 4x0FvGjPgE7IJtrR6Duse X5XISwdMYoYNNiwMHSaP5 ehqkjn9dypmxp UlVeDNPsRWi7LXi8HQXny EewRjIxZWG3DgT6UIN9fR RigE5bzPlymjjnaR0cAuw +YZZ6QBI5IG26 ES79K2XpIxhzmIElaZW+P HRhYmxlIHdpZHRoPScxMD VeMqSemJvjVZ7fZv9wQIX yLWNvbGxhcHNl OiB (more content not included)... [facility] Care Note- Provideron 04-06-2021 [...] and Plan Diagnosis Sprain of left foot (AAV62-QN S93.602A, Discharge, Medical) Plan Condition: Stable. Disposition: [...] she can arrange follow-up as needed. Normal [facility] ED Clinical Summaryon 2020 ED Clinical Summary [facility] ? Urgent Care [address] [place] [id number] Clinical Summary PERSON INFORMATION Name: LEIGH MONTOYA Age: 20 Years Sex: FEMALE : 2000 MRN: Acct#: Visit Reason: UC - Ankle/Foot/Toe Pain or Swelling; LEFT FOOT PAIN Arrival: 04/05/2021 16:12:07 Discharge: 04/05/2021 17:50:00 LOS: 000 01:38 Check In: 04/05/2021 16:12:07 Checkout: 04/05/2021 17:50:00 Address: [facility] [id number] PCP: Flex Wang DO PROVIDER INFORMATION Provider Role Assigned Unassigned Monica Dunn SUPPLIER QUALITY MANAGER Nurse 04/05/2021 16:14:32 Paul Atkins PA-C ED [...] Sprain Follow-Up: With: Address: When: JEFF Bernabe [facility] [address] [place], [place] [id number] Business (1) , only if needed With: Address: When: Flex Wang [address] [facility] [place] [id number] Business (1) Within 3 to 5 days DIAGNOSIS: Sprain of left foot Patient Understands: Yes - Patient/family/caregi nela verbalizes understanding of instructions given Comment: Normal [facility] ED Patient Summaryon 021 ED Patient Summary [facility] ? Urgent Care [address] [place], [place] [id number] PATIENT DISCHARGE INSTRUCTIONS Patient Information Name: LEIGH MONTOYA Age: 20 Years Date of : 2000 Reason For Visit: UC - Ankle/Foot/Toe Pain or Swelling; LEFT FOOT PAIN Arrival Time: 04/05/2021 16:12:07 Primary Care Physician: Flex Wang DO Attending Physician: Nirav Nunez Comment: Patient Education With: Address: When: JEFF Bernabe Mojeek [address] [address] Business (1) , only if needed With: Address: When: Flex Wang [address] [facility] [place] [address] Business (1) Within 3 to [...] ? As (more content not included)... Normal [facility] Care Recordon 021 Urgent Care Record [facility] ? Urgent Care [address] [facility]. [place], [place] [address] PATIENT DISCHARGE INSTRUCTIONS Patient Information Name: LEIGH MONTOYA Age: 20 Years Date of : 2000 Reason For Visit: UC - Ankle/Foot/Toe Pain or Swelling; LEFT FOOT PAIN Arrival Time: 04/05/2021 16:12:07 Primary Care Physician: Flex Wang DO Attending Physician: Nirav Nunez Comment: Visit Diagnosis: Diagnoses This Visit Sprain of left foot (S93.602A) UC - Ankle/Foot/Toe Pain or Swelling ([id number]) If you received any narcotics, sedation, or [...] With: Address: When: JEFF JESUS [address] [address] Business (1) , only if needed With: Address: When: Flex Wang [address] [facility], [place] [address] Business (1) Within 3 to 5 days Medication Information: The exam and treatment you received today in the [facility] were for an urgent problem and are not intended as complete care. It is important for you to follow up with a doctor, nurse practitioner, or physician?s payroll human resources assistant for ongoing care. If your symptoms [...] so we can reach you if necessary. [facility] has provided you with a complete list of medications post discharge. Please inform your premium representative/provider of your visit and for further instruction [...] are no br (more content not included)... [facility] XR Foot Complete Lefton 03-20 [...] Vishal Fernandez 04/06/21 8:27 am Technologist: NELIDA [facility] Coding Summaryon 08-01-2020 Coding Summary HTMLBase 64 PjgzaijsPCu1tMh+PGhlY WQ+IS4NNSZqT73azADskI 1GS4kWXO7DYLESPHSAML7 MLS8chTI7IIdtN3OpalGm VsveiIGaEA14PFn5IFC1d XxaXYgjxR0phXJwE2p7Rk RbHC77xV81JSgpIHEjLdN 3LjZpbjsgbWFy Z5xvAmPvwDLdDmq+PHRhY mxlIHdpZHRoPScxMDAlJy KmhIokYE8xGa9yLEMkYYC vbGxhcHNlOiBj o6fpPZRnWRmoRL8ydCbsX 4KpzFZ7MCFvi3g1Oo34uY I+LCAeWNU5lNocCIddn82 1RpFvo2fcROK7 uSEbQYafNEP0U68vx0X3Y RQaUIQuXOY9mFA4yP8boZ nvxtdsN8XryBWqIrE8JBC 0kIJngB5mzVdo benslQ8fUtu+W49ZRM7WV JJSGK4WDgq7S8CgJnjwwG I+CA21SZAgNP01vJSooJF bk2jomSt9NpTa VPAxCBX0eHbrCMrqd0KbU RVfQ61yjMDhw5T3WETmsK lthRMtCqKngPU7nM7dWCq bjxwbq1gkbgei Ljscm9tkqx98aZ50Y94uF SzqSUZlGSX5EOHuTWJxwU pmsj3fyS4jUp0+SEsbl6v lw1sbdIh6WwOk FJUflxRaaObqFJW1l2GbR b66E6GccKswf6MeXgz6rq 64vHEsq6W7fAI6UHnwQPR ppE8lZFvtHeX5 SJEkXbIchZ18wLWsEAphH d6yuIfpmJlyYN6rSJYpyk srCEBprU9iJCBkpFRmmDd xJJ1iNPKcldsu s177MaMbHLF2HMBwpLPfD 6JgtY2vPaCpKLRpHYDxO7 VsrQYyKWzkE030NJslMyY 6SLSwndJvJ1Cl HNUikEquCfI0g3W5Js7Kk 3ThxmsbZIF1HCncVYXyJp N9EnZfHuH4Y5FoNvl1GHN wuUnrAH8vW0Sy KOYetonugcvrtDU8AWBdO COauD23rLXjBLohJu6wi2 J2m884QWUmCNTajG58Nb1 udDogMTBwdCBU gB7nurwcn0ktmaouToMkK OXsXHh5ELl5VOKejFeoSo MvWIG8ShU4DQX2mCYdsI8 ypUnvlrawsG2r Oyc+Y72teV4cIVQ3JIU3x gvmLLQhabQhPI12BJ35R5 RyPjwvdGFibGU+PGRpdiB zvGvqHF3qZzDc c1isy3MmHOirV8JaMKRtX GzjZeo0PJKxZIG9qJJ4dC 9pVJRmXDzjd3J5cLZ1O5K pqoRbeg5mc0to JNByUNgiC35snDAxk5H0B GNzoBV8DWBabEpwXsUgkY 93Oyc+CZGtjFevi3WxDuf dz7qto8bmlZr9 VaPeIPCqftYglOnhKNJ0x 2SgCz01U94pCIeqKNKyJE LzMWOyUYVcmRlvgp0jgN8 wIi8+PGNvbCB3 gGT6yX1cCHWzCoW7IQxoE 604RtKqjJGgRqson0tih1 xuxMb0FlXyVUIjynZhqCf iVZX8g1TyPq05 W04oUBbvRMZoTYTgZFTcM EOxoCpbtp5gtZ6rNi2+PC 9ju5rayd19xG11pYS+PHR iZFN7mLmzNYcp THButU1jCCraKrT0JFPiV vIacX12rIRcIAvlKs6riJ vcqIfvOH8nWTClxcdzp69 6RwKsk3jrCBCr jRVtMWioLRR4R76hh7Y4B SVmNGDwSFS2eBI9aH6tgB lnbjogbGVmdDsgdmVydGl eOAxfPIegB790 IHRvcDsnPlBhdGllbnQgT vCzUAa9X4RmFdv6IIJctS vyOI6paFMfVTpsCb4saZj cjGwpOV9hXHLg dhwqj740XbJpo2ncUSAbj MLxRKdrJPP7C51dq9Z0VK IgUADpXCA0zWA9jG6qeAw nbjogbGVmdDsg sgWyjZhhSNpyBGtlE196I HRvcDsnPkJpcnRoIERhdG W8PF26LL13eCNsw6W9vHL 0J8JwSWCnxctw xacurXY1NFVeAUVwlK99X o9hjKgaAj1tLSZoYGA7TS LdpKVjB6NaiL3xRaGxSWR fRBKfW2YglQIv VSpvP392VOxrEdX6EQIlr qLzU5HdSUGwiQzmYkD2y7 V1Hl0MS0T4ET65TG62wLZ hy0F6aXQ2C9Te YVNzegmabnjrxEV1THRmA QVexW20Fc8tcNkyWv7lGS MuMQH4OWMtgBVbM6WknL2 yOiAjMDAwMDAw K3TfqXFpNXlnC868CUsyU dQ2YKBovaOiB1LjYYCshT ssBqY9s9N7Fj0GNXv0OI6 5VV91sNOuh2F3 ySY4V8GxVHUejbvarwrzf PN3AQDiNRYtnX81Fb9omC esSx3rWVDqFVP5WPBgnUP hF8VzmZ6wKpFc ONXzQRPhM8WbxBWeHAnpR 435ZKxiAdK2QTDixoGsK9 TpSIQbvVkbWkJ1l6L1Wc0 JEGGtML78FAJ3 uGI8CM52VX75U4ZqDxair GFibGU+PHRhYmxlIHdpZH RoPScxMDAlJyBzdHlsZT0 dFb8mBZLfPHAi fHuiyZXgFrDxp3pjOKGpA KypPQ6esUlqK6FkyNQ3DF Cve2m4Hj79Q03iU3NhfZC +NTRcsBZ6mJM1 qT0xMqUuHqD2QCfoE987F vBvwGWxLiulq6iqs5nusW j9KzW9QPZqkzSezRkuEHX 4g1OaJz66S01w IHdpZHRoPSIxNSUiIHZhb Helln6nqD9mBq4+PGNvbC V3vHX1lU8mJgPaFxT2YBv vR863IvOnhSQu Qkbzq0cfj7aijMu8TuQeI XVxcgCurNasMTH0c0NxHs 51J5LkuDajs2XuHai5lv2 6qBArp9T9sJU3 B1RbDLZvdjzqjGGtvAnpW S1hWAFuvustPNFevY6fDQ XlU2h9ZbUdHmB2LUcqN7X ezbH5KPMolKQh HEpgMCU3D58qv7H0UZSfD BTmXDA2xJF5xT3tsDkcig ogbGVmdDsgdmVydGljYWw eBAyhP832IAMa kDwuEHLnfP4wKVZzeFCxq UmtLJ7dXEMrqkhfLjYRWG REWSwgSEFOTkFIIEdSQUN MGB47LW62wXCk f3R6sTU2A4FrVENhazpio uwchDZ0EXFkNWXgaB86uS DbCLqvKh9rd8P9l164KLU eTGHhnI48Yw8k oKkfLWFnhSYPfI3oudzxu 6zaacjeZaGdHQVeDBs8BS w6UGOpbRfeNeUtANX6PmB 0RZC2rULfwQ8l vSucvukumW0hDws+MDMvM DkvMjAwMTwvdGQ+PHRkIH Z5vNziIOgsOXWndR6pWDP zL3w0EcGsAgM1 YNnoN9ZfLLUprtzaNu74r M3uIeHpOeL3RRbyN6Jjxy D5TGNqjZEvKBabKBZ3U38 rh2C6ROWzNIVw TOB3cEW6fV2hlWmdpjkkd GVmdDsgdmVydGljYWwtYW eiZ424ZTUcjMtgBiZjCDr jRUPzOD85EL30 eZUzw4C8rWI5C9DgURYpp bgzsjrliYE9TTZjZAEcjJ 93oOKtOFibSd8tr9O6f31 4QLNoTXUxaF82 Nw2kuXmiANVlnOWErG8gw ztgw9tavfejIyCtJCXmVQ i9VHx8NFSioXtfNoSwHLJ 3HkF2FNW1mYXx yW4ogXoskbfvbU9qDga+R jXWREoYDK10FS45fBWly2 O7dJU4T0FpDTYjmoleapv qbCO6UVAbTHSp qE92cBVxPZmjFf4un6H5d 460UVSnSCDhwD53Xf1ydL ebVCHarJHMgH3ttkmxr7w vcjogIzAwMDAw EDy6WQi6BAValGvxUbTuV AG9OsG4LYL9iUSphK6mbN mwgjnhkS0bFff+Q4G1F2R kPjwvdHI+PC90 ONPyEN64tQXcbZNnx6cob Xf4GzXuKSPlAQD6hOsdMF kfq4CdPWCfW87mwVHyn3A 6IGNvbGxhcHNl EvYlnHR7xP7bBQmetnbiy 0tfjcrhUkmwh9bpjx67lP 24H97uIEdjGKFgARLmMWC iUSUlxGtwfu6o nB0pFd8+DQLpwKA9lLY0p S1ySiHwQaZ6TNvxS581Ms DpzGSxCxfnr5jls2iiaEs 9IjIwJSIgdmFs sDbiMBM5p1ZcZr37S40lQ HdpZHRoPSIyMCUiIHZhbG qgsa5bbZ7hQz1+KG0qm4v qqo66bP89jFG+ CFTqZDG7oLaaQFsjSPWbm U8gPHbaThN3KLBcDdLhsW 44dKGjXRczPp1ttFscfUi kNQ5wWFNclerj i861XbJsf7pcHTDbsPLlR XurSHU8K89dj0X8TIFuAT ZrNBL5mTW2uS0wbOcejgl gbGVmdDsgdmVy iYimMJnwYKlvR211VFMyb WqpAcMiqDDdE4ddpkATII 1lOjwvdGQ+DIRiMZW7tOa pGYjoXYJsrC1i EOJfE9a3BoNdZxL8CXchX 8HogaI6MHIozIXhNVOjeY AIzM1bvcyoq8xnxnqsZjE qNBWkHNs7QPj7 SSHtlVtsLcYvMAF9GpK6D HH3rVLvnO3xiIajmddnjJ 9wOyc+RklOOjwvdGQ+PHR hMTF8jCrhAQfv AYNfmL3uUCXbO4p4RrQiC fB1AVtpE9KvhmG9LPRpuJ MqCJRsaGPLnJ8ugjfau3p vcjogIzAwMDAw ZHw6VYj2NZCocSqgBrFhB BN4ShL8ALL9qUGruC2dsK ttzyijkY5mOdf+TVJOOjw vdGQ+PHRkIHN0 wIowLLekVCJybT8yZOQoU 9s2UlIoNrM8HZwpV8Qozg P3LXYslMDiDGXflWNBsE3 ximgop9ufpxfg UvNzMOQzMOr3WOn2PTDaj VwrWpAcCUP9PaZ6DVS9iJ XzfO9mzDgboreitV7cAan +QLB9ZBJ3VN25 PW19X8CmDzchaDQdoLX+P HRhYmxlIHdpZHRoPScxMD MoDsHscFooZF4dTe5oADX yLWNvbGxhcHNl OiB (more content not included)... Normal [facility] C Throaton 07-31-2020 C Throat Ordered by Discern. Normal throat regi isolated No pathogens isolated Normal [facility] Comment on above: Performed By: #### [id number] ####[facility] (DEFAULT)[address] [place] [address] ED Clinical Summaryon 2020 ED Clinical Summary [facility] ? Urgent Care [address] [place] [address] Clinical Summary PERSON INFORMATION Name: LEIGH MONTOYA Age: 20 Years Sex: FEMALE : 2000 MRN: Acct#: Visit Reason: UC - Sore Throat; THROAT PAIN Arrival: 07/29/2020 09:44:22 Discharge: 07/29/2020 10:23:00 LOS: 000 00:39 Check In: 07/29/2020 09:44:22 Checkout: 07/29/2020 10:23:00 Address: [address] [place] [address] PCP: Flex Wang DO PROVIDER INFORMATION Provider [...] Negative . Impression and Plan Diagnosis Pharyngitis (MGC27-NY J02.9, Discharge, Medical) Plan Condition: Stable. Disposition: Discharged: Time 07/29/2020 10:17:00 (more content not included)... Normal [facility] ED Note - Provideron 021 ED Note [...] Negative . Impression and Plan Diagnosis Pharyngitis ([id number]-RM J02.9, Discharge, Medical) Plan Condition: Stable. Disposition: Discharged: Time 07/29/2020 10:17:00, to home. Patient was given the following educational materials: Pharyngitis, Wqbs-hv-Oxxr, Pharyngitis, Cjzr-ia-Quhb. Follow up with: Flex Wang Within 2 [...] on: 07/29/2020 10:20 EST] Patricia Meeks PA-C [facility] ED Patient Summaryon 021 ED Patient Summary [facility] ? Urgent Care [address] [place] [id number] PATIENT DISCHARGE INSTRUCTIONS Patient Information Name: LEIGH MONTOYA Age: 20 Years Date of : 2000 Reason For Visit: UC - Sore Throat; THROAT PAIN Arrival Time: 07/29/2020 09:44:22 Primary Care Physician: Flex Wang DO Attending Physician: Patricia Meeks PA-C Comment: Patient Education With: Address: When: Flex Wang [address] [facility], [address] [place] [phone] Business (1) Within 2 to 4 days [...] Follow these instructions at home: ? Take [id number] and prescription medicines only as told by [...] 10/22/2008 Document Revised: 04/18/2018 Document Reviewed: 06/11/2017 [employer] Patient Education ? 2020 [employer]. Medication Information: The exam and treatment you received today in the [facility] Emergency Department were for an urgent problem and are not intended as complete care. It is important for you to follow up with a doctor, nurse practitioner, or physician?s payroll human resources assistant for ongoing care. If your symptoms [...] so we can reach you if necessary. [facility] Emergency Department has provided you with a complete list of medications post discharge. Please inform your premium representative/provider of your visit and for further instruction [...] Throat (C11 (more content not included)... Normal [facility] Strep Aon 07-29-2020 Strep procedure control Pass Normal [facility] Comment on above: Performed By: #### [id number] ####[facility] (DEFAULT)[address] [place] [id number] Streptococcus A Negative Normal Negative [facility] Comment on above: Performed By: #### [id number] ####[facility] (DEFAULT)[address] [place] [id number] Urgent Care [place] 021 Urgent Care Record [facility] ? Urgent Care [address] [place] [address] PATIENT DISCHARGE INSTRUCTIONS Patient Information Name: LEIGH MONTOYA Age: 20 Years Date of : 2000 Reason For Visit: UC - Sore Throat; THROAT PAIN Arrival Time: 07/29/2020 09:44:22 Primary Care Physician: Flex Wang DO Attending Physician: Patricia Meeks PA-C Comment: Visit Diagnosis: Diagnoses This Visit Pharyngitis (J02.9) UC - Sore Throat ([id number]) If you received any narcotics, sedation, or [...] With: Address: When: Flex Wang [address] [facility] [facility], [address] [place] [id number] Business (1) Within 2 to 4 days [...] and treatment you received today in the [facility] were for an urgent problem and are not intended as complete care. It is important for you to follow up with a doctor, nurse practitioner, or physician?s payroll human resources assistant for ongoing care. If your symptoms [...] so we can reach you if necessary. [facility] has provided you with a complete list of medications post discharge. Please inform your premium representative/provider of your visit and for further instruction [...] Follow these instructions at home: ? Take mfeh-nav-ocahgxg and prescription medicines only as told by [...] help righ (more content not included)... Normal [facility] Coding Summaryon 06-27-2020 Coding Summary CODING DATE: 06/27/2020 [facility] STATUS: Home PAYOR: Commercial Insurance ADMIT [...] Nano Padilla Date Saved: 06/27/2020 12:37 pm [facility] ED Clinical Summaryon 2020 ED Clinical Summary [facility] ? Urgent Care [address] [place] [address] Clinical Summary PERSON INFORMATION Name: LEIGH MONTOYA Age: 19 Years Sex: FEMALE : 2000 MRN: Acct#: Visit Reason: UC - Ear Pain; UC - Ear Pain; RIGHT EAR PAIN Arrival: 06/18/2020 15:00:59 Discharge: 06/18/2020 15:27:00 LOS: 000 00:27 Check In: 06/18/2020 15:00:59 Checkout: 06/18/2020 15:27:00 Address: [address] [place] [address] PCP: Flex Wang DO PROVIDER INFORMATION Provider Role Assigned Unassigned Monica Dunn SUPPLIER QUALITY MANAGER Nurse 06/18/2020 15:03:15 Marv Shannon ED PA 06/18/2020 15:03:24 VITALS INFORMATION Vital Sign Triage Latest Temperature Tympanic Temperature Temporal Artery Pulse Rate O2 Sat 98 % 98 % Respiratory Rate Blood Pressure /78 mmHg /78 mmHg MEDICAL INFORMATION Medications Given: Allergy Information: sulfamethoxazole; ibuprofen PHYSICIAN DOCUMENTATION DISCHARGE INFORMATION: Discharge Disposition: Home Discharge Location: Home PATIENT EDUCATION INFORMATION Instructions: Otitis Media, Adult, Kmnl-ej-Npix Follow-Up: With: Address: When: Flex Wang [address], [place] [address] Business (1) Comments: Begin on the amoxicillin-clavulana te antibiotic take every 12 hours for the next 10 days Follow-up with your primary care physician in 3-5 days for reevaluation, sooner if any worsening symptoms DIAGNOSIS: Otitis media, right Patient Understands: Yes - Patient/family/caregi nela verbalizes understanding of instructions given Comment: [facility] ED Patient Summaryon 021 ED Patient Summary [facility] ? Urgent Care [address] [place] [address] PATIENT DISCHARGE INSTRUCTIONS Patient Information Name: LEIGH MONTOYA Age: 19 Years Date of : 2000 Reason For Visit: UC - Ear Pain; UC - Ear Pain; RIGHT EAR PAIN Arrival Time: 06/18/2020 15:00:59 Primary Care Physician: Flex Wang DO Attending Physician: Marv Shannon Comment: Patient Education With: Address: When: Flex Wang [address], [address] [place] [phone] Business (1) Comments: Begin on the amoxicillin-clavulana [...] Follow these instructions at home: ? Take cxws-thy-cmvcnck and prescription medicines only as told by [...] 10/22/2008 Document Revised: 04/18/2018 Document Reviewed: 05/27/2017 [employer] Patient Education ? 2019 [employer]. Medication Information: The exam and treatment you received today in the [facility] Emergency Department were for an urgent problem and are not intended as complete care. It is important for you to follow up with a doctor, nurse practitioner, or physician?s payroll human resources assistant for ongoing care. If your symptoms [...] so we can reach you if necessary. [facility] Emergency Department has provided you with a complete list of medications post discharge. Please inform your premium representative/provider of your visit and for further instruction on these medications. Any specific questions regarding your chronic medications and dosages should be discussed with your primary care physician(s) and/or pharmacist. New Medications [facility], [address] [place] [id number], [phone] amoxicillin-clavulana te (Augmentin 500 mg-125 mg oral [...] media, right (H66.91) UC - Ear Pain ([id number]) UC - Ear Pain ([id number]) If you received any narcotics, sedation, or any other medication that causes drowsiness for the next 24 hours, unless otherwise directed: ? Do not drive a car. ? Do not operate machinery such as power tools, lawn mowers, drills, sewing machines, or stoves ? Avoid alcoholic beverages and drugs for allergies, n (more content not included)... Normal [facility]gent Care Note- Provideron 06-18-2020 Urgent Care [...] Impression and Plan Diagnosis Otitis media, right (ZZF72-CE H66.91, Discharge, Medical) Plan Prescriptions: [facility] prescriptions Pharmacy: Augmentin 500 mg-125 mg oral tablet (Prescribe): 1 tab(s), PO, q12hr, for 10 day(s), 20 tab(s), 0 Refill(s). Patient was given the following educational materials: Otitis Media, Adult, Mios-jx-Hvuk. Follow up with: Flex Wang Begin on the amoxicillin-clavulana te antibiotic take every 12 hours for the next 10 days Follow-up with your primary care physician in 3-5 days for reevaluation, sooner if any worsening symptoms. Counseled: Patient, Regarding diagnosis, Regarding diagnostic results, Regarding treatment plan, Regarding prescription, Patient indicated understanding of instructions. Normal [facility] [place] 021 Urgent Care Record [facility] ? Urgent Care [address] [place] [id number] PATIENT DISCHARGE INSTRUCTIONS Patient Information Name: LEIGH MONTOYA Age: 19 Years Date of : 2000 Reason For Visit: UC - Ear Pain; UC - Ear Pain; RIGHT EAR PAIN Arrival Time: 06/18/2020 15:00:59 Primary Care Physician: Flex Wang DO Attending Physician: Marv Shannon Comment: Visit Diagnosis: Diagnoses This Visit Otitis media, right (H66.91) UC - Ear Pain ([id number]) UC - Ear Pain ([id number]) If you received any narcotics, sedation, or [...] With: Address: When: Flex Wang [address] [facility] [place] [address] [place] [address] Business (1) Comments: Begin on the amoxicillin-clavulana te antibiotic take every 12 hours for the next 10 days Follow-up with your primary care physician in 3-5 days for reevaluation, sooner if any worsening symptoms Medication Information: The exam and treatment you received today in the [facility] were for an urgent problem and are not intended as complete care. It is important for you to follow up with a doctor, nurse practitioner, or physician?s payroll human resources assistant for ongoing care. If your symptoms [...] so we can reach you if necessary. [facility] has provided you with a complete list of medications post discharge. Please inform your premium representative/provider of your visit and for further instruction on these medications. Any specific questions regarding your chronic medications and dosages should be discussed with your primary care physician(s) and/or pharmacist. New Medications [facility], [address] [place], [place] [id number], [phone] amoxicillin-clavulana te (Augmentin 500 mg-125 mg oral [...] Follow these instructions at home: ? Take vovw-ftt-zdbcnip and prescription medicines only as told by [...] (paralyzed). ? You (more content not included)... [facility] Consent Formson 04-28-2020 Consent Forms [id number] Provider Orderson 04-28-2020 Provider Orders [id number] .00[facility] Coding Summaryon 04-25-2020 Coding Summary CODING DATE: 04/25/2020 [facility] STATUS: Home PAYOR: Commercial Insurance ADMIT [...] Nano Padilla Date Saved: 04/25/2020 02:38 pm [facility] .QC Respiratory Panel 2.1 (B ioFire)on 04-22-2020 Internal Control-Resp Panel 2.1(BioFire) Pass [facility] Comment on above: Order Comment: Order ed by Holley.[[id number]] Performed By: #### 6 [id number], [id number] ####[facility] (DEFAULT)[address] [place] [address] Respiratory Panel 2.1 (BioFi re)on 04-22-2020 Adenovirus -BioFire Not detected Normal Not Detected [facility] Comment on above: Performed By: #### 6 [id number], [id number] ####[facility] (DEFAULT)[address] [place] [address] Bordetella parapertussis -BioFire Not detected Normal Not Detected [facility] Comment on above: Performed By: #### 6 [id number], [id number] ####[facility] (DEFAULT)[address] [place] [address] Bordetella pertussis -BioFire Not detected Normal Not Detected [facility] Comment on above: Performed By: #### 6 [id number], [id number] ####[facility] (DEFAULT)[address] [place] [address] Chlamydia pneumoniae -BioFire Not detected Normal Not Detected [facility] Comment on above: Performed By: #### 6 [id number], [id number] ####[facility] (DEFAULT)[address] [place] [address] Coronavirus 229E (Not COVID-19) -BioFire Not detected Normal Not Detected [facility] Comment on above: Performed By: #### 6 [id number], [id number] ####[facility] (DEFAULT)[address] [place] [address] Coronavirus HKU1 (Not COVID-19) -BioFire Not detected Normal Not Detected [facility] Comment on above: Performed By: #### 6 [id number], [id number] ####[facility] (DEFAULT)[address] [place] [address] Coronavirus NL63 (Not COVID-19) -BioFire Not detected Normal Not Detected [facility] Comment on above: Performed By: #### 6 [id number], [id number] ####[facility] (DEFAULT)[address] [place] [address] Coronavirus OC43 (Not COVID-19) -BioFire Not detected Normal Not Detected [facility] Comment on above: Performed By: #### 6 [id number], [id number] ####[facility] (DEFAULT)[address] [place] [address] Employed in healthcare? No Invalid Interpretation Code [facility] Comment on above: Performed By: #### 6 [id number], [id number] ####[facility] (DEFAULT)[address] [place] [address] Group care resident? No Invalid Interpretation Code [facility] Comment on above: Performed By: #### 6 [id number], [id number] ####[facility] (DEFAULT)[address] [place] [address] Human Metapneumovirus -BioFire Not detected Normal Not Detected [facility] Comment on above: Performed By: #### 6 [id number], [id number] ####[facility] (DEFAULT)[address] [place] [address] Human Rhinovirus/Enterovir us -BioFire Not detected Normal Not Detected [facility] Comment on above: Performed By: #### 6 [id number], [id number] ####[facility] (DEFAULT)[address] [place] [address] In ICU? No Invalid Interpretation Code [facility] Comment on above: Performed By: #### 6 [id number], [id number] ####[facility] (DEFAULT)[address] [place] [address] Influenza A (no subtype) -BioFire Not detected Normal Not Detected [facility] Comment on above: Performed By: #### 6 [id number], [id number] ####[facility] (DEFAULT)[address] [place] [address] Influenza A -BioFire Not detected Normal Not Detected [facility] Comment on above: Performed By: #### 6 [id number], [id number] ####[facility] (DEFAULT)[address] [place] [address] Influenza A H1 -BioFire Not detected Normal Not Detected [facility] Comment on above: Performed By: #### 6 [id number], [id number] ####[facility] (DEFAULT)[address] [place] [address] Influenza A H1-2009 -BioFire Not detected Normal Not Detected [facility] Comment on above: Performed By: #### 6 [id number], [id number] ####[facility] (DEFAULT)[address] [place] [address] Influenza A H3 -BioFire Not detected Normal Not Detected [facility] Comment on above: Performed By: #### 6 [id number], [id number] ####[facility] (DEFAULT)[address] [place] [address] Influenza B -BioFire Not detected Normal Not Detected [facility] Comment on above: Performed By: #### 6 [id number], [id number] ####[facility] (DEFAULT)[address] [place] [address] Mycoplasma pneumoniae -BioFire Not detected Normal Not Detected [facility] Comment on above: Performed By: #### 6 [id number], [id number] ####[facility] (DEFAULT)[address] [place] [address] Parainfluenza Virus 1 -BioFire Not detected Normal Not Detected [facility] Comment on above: Performed By: #### 6 [id number], [id number] ####[facility] (DEFAULT)[address] [place] [address] Parainfluenza Virus 2 -BioFire Not detected Normal Not Detected [facility] Comment on above: Performed By: #### 6 [id number], [id number] ####[facility] (DEFAULT)[address] [place] [address] Parainfluenza Virus 3 -BioFire Not detected Normal Not Detected [facility] Comment on above: Performed By: #### 6 [id number], [id number] ####[facility] (DEFAULT)[address] [place] [address] Parainfluenza Virus 4 -BioFire Not detected Normal Not Detected [facility] Comment on above: Performed By: #### 6 [id number], [id number] ####[facility] (DEFAULT)[address] [place] [address] status? Not Invalid Interpretation Code [facility] Comment on above: Performed By: #### 6 [id number], [id number] ####[facility] (DEFAULT)[address] [place] [address] Respiratory Syncytial Virus -BioFire Not detected Normal Not Detected [facility] Comment on above: Performed By: #### 6 [id number], [id number] ####[facility] (DEFAULT)[address] [place] [address] SARS-CoV-2 (COVID-19) RNA OZZIE+probe Ql (Unsp spec) Not detected Normal Not Detected [facility] Comment on above: Performed By: #### 6 [id number], [id number] ####[facility] (DEFAULT)[address] [place] [address] SARS-CoV-2 (COVID-19) RNA OZZIE+probe Ql (Unsp spec) No Invalid Interpretation Code [facility] Comment on above: Performed By: #### 6 [id number], [id number] ####[facility] (DEFAULT)[address] [place] [address] Symptomatic as defined by CDC? No Invalid Interpretation Code [facility] Comment on above: Performed By: #### 6 [id number], [id number] ####[facility] (DEFAULT)[address] [place] [address] Vital Signs Date Time Vital Sign Value Performing Clinician Facility 12-06-2021 16:30-0400 Body height 160.02 cm Ezequiel Melo Other [facility] Other 12-06-2021 16:30-0400 Body mass index (BMI) [Ratio] 41.62 kg/m2 Ezequiel Melo Other [facility] Other 12-06-2021 16:30-0400 Body weight 106.6 kg Ezequiel Melo Other [facility] Other 10-11-2021 14:45-0400 Body height 160.02 cm Ezequiel Melo Other [facility] Other 10-11-2021 14:45-0400 Body mass index (BMI) [Ratio] 41.98 kg/m2 Ezequiel Melo Other [facility] Other 10-11-2021 14:45-0400 Body weight 107.5 kg Ezequiel Melo Other [facility] Other 10-11-2021 14:45-0400 Diastolic blood pressure 79 mm[Hg] Ezequiel Melo Other [facility] Other 10-11-2021 14:45-0400 Systolic blood pressure 128 mm[Hg] Ezequiel Melo Other [facility] Other Encounters Encounter Date Encounter Type Care [...] 12-06-2021 End: 12-06-2021 ambulatory Ezequiel Melo Other [facility] Other Start: 12-06-2021 Patient encounter procedure Ezequiel Melo [facility] Start: 10-11-2021 End: 10-11-2021 ambulatory Ezequiel Melo Other [facility] Other Start: 10-11-2021 FQ visit new patient Ezequiel Melo [facility] G[facility] Payers Date Payer Category Payer Unknown [id number] 2000 Unknown [id number] 2.16.84 [id number] 2000 Unknown [id number] 2.16.84 [id number] 2000 Unknown [id number] 2.16.84 [id number] 2000 Unknown [id number] 2.16.84 [id number] 2000 Unknown [id number] 2.16.84 [id number] 2000 Unknown [id number] 2.16.84 [id number] 2000 Unknown [id number] 2.16.84 [id number] 2000 Unknown [id number] 2.16.84 [id number] 1959 Unknown [id number] Medicaid [id number] 2. [id number] Social History Date Type Detail Facility Sex Assigned At [facility] Other Evaluation note 12-06-2021 Note Date & Type Note Facility 12-06-2021 Evaluation note Encounter Date Diagnosis Assessment Notes Nov, Dyspepsia (ICD-10 - K30) patient states does have some bloating in the left center she does have pain noted. patient is advised that we can start levsin and refer to [facility] for food testing. [facility] Other Evaluation note 05-25-2022 Note Date & Type Note Facility 10-11-2021 Evaluation note Encounter Date Diagnosis Assessment Notes September, Bloating (ICD-10 - R14.0) September, Dyspepsia (ICD-10 - K30) September, Abdominal pain (ICD-10 - R10.9) [facility] Other Clinical Note 04-05-2021 Note Date & [...] This may take several hours. ? Take pgtj-nsj-hyaioiw and prescription medicines only as told by your health care provider. ? When you can walk without pain, wear supportive shoes that have stiff soles. Do not wear flip-flops, and do not walk barefoot. ? Keep all follow-up visits as told by your health care provider. This is important. Contact a health care provide (more content not included)... [facility] Clinical Note 07-29-2020 Note Date & Type Note Facility 07-29-2020 Note Patient Education Ma terials Follows:Disease Pharyngitis Pharyngitis is a sore throat (pharynx). This is when there is redness, pain, and swelling in your throat. Most of the time, this condition gets better on its own. In some cases, you may need medicine. Follow these instructions at home: ? Take vnmr-kfb-pdmitcw and prescription medicines only as told by [...] 10/22/2008 Document Revised: 04/18/2018 Document Reviewed: 06/11/2017 [employer] Patient Education ? 2019 [employer]. [facility] Clinical Note 06-18-2020 Note Date & Type Note Facility 06-18-2020 Note Patient Education Ma terials Follows: Otitis Media, Adult Otitis media means that the middle ear is red and swollen (inflamed) and full of fluid. The condition usually goes away on its own. Follow these instructions at home: ? Take hzij-anu-vhmjdgy and prescription medicines only as told by [...] 10/22/2008 Document Revised: 04/18/2018 Document Reviewed: 05/27/2017 [employer] Patient Education ? 2019 [employer] [facility]. [facility] Clinical Note 04-22-2020 Note Date & Type Note Facility 04-22-2020 Note Nasal swab performed without complication. Patient tolerated well. Education given. Patient verbalized understanding. [Electronically Signed on: 04/22/2020 15:05 EST] Miri Nuñez RN [Verified on: 04/22/2020 15:05 EST] Miri Nuñez RN [facility] History general Narrative - Reported Note Date & Type Note Facility History general Narrative - Reported Type Medical History PCOS Medical History Endometriosis Surgical History laparoscopy - endometriosis [facility] Other Reason for referral (narrative) Note Date [...] is able to get in before this. [facility] Other Reason for visit Narrative Note Date & Type Note Facility Reason for visit Narrative PATIENT HERE AT THE REQUEST OF DR. VERGARA FOR EVALUATION & TREATMENT OF BLOATING [facility] Other Reason for visit Narrative Note Date [...] of the side effects that were listed. [facility] Other Summary Purpose Family History No Family History Records FoundNo Family History Records FoundNo Family History Records FoundNo Family History Records Found Advance Directives No Advanced Directives Records FoundNo Advanced Directives Records FoundNo Advanced Directives Records FoundNo Advanced Directives Records Found Additional Source Comments INFORMATION SOURCE (unrecogn ized section and content) DATE CREATED AUTHOR 04/21/2021 [facility] DATE CREATED AUTHOR AUTHOR'S ORGANIZ ATION 11/08/2021 [facility] DATE CREATED AUTHOR AUTHOR'S ORGANIZ ATION 09/06/2022 [facility] DATE CREATED AUTHOR AUTHOR'S ORGANIZ ATION 01/04/2024 [facility] FOR RECORDS PERTAINING TO PATIENTS WHO [...] BE BASED ON THE PRIMARY CLINICAL RECORDS. [employer] provides no warranty or guarantee of the accuracy or completeness of information in this document.
== END 2024-01-22 14:18 | disposition home or self-care (01) ==
LOC: NOMS 14:17
PROVIDERS: Visit Provider Physician Assistant
DX: O36.63X0 Maternal care for excessive fetal growth, third trimester, not applicable or unspecified (principal); Z3A.34 34 weeks gestation of pregnancy
CPT/HCPCS: 76816

== ENCOUNTER 2024-01-23 07:05 | Outpatient (OUT) | payer OTHER, SELFPAY ==
--- OUTSIDE RECORDS SUMMARY | 2024-01-23 07:08 | XMS_ITS | CCD ---
Author Organization [facility] Care Team Providers Care Bit Tapper Name Role Phone Ezequiel Melo Unavailable [facility], DR MIRANDA Primary Care Unavailable JAI ., [...] Reaction(s) Facility (2 sources) [facility] [employer] Other (1 source) Sulfonamides (Antibiotic) Drug allergy (disorder) [facility] Medications Current Medications Medication [...] to 29on 09-06-2022 . . Normal [facility] Comment on above: Performed By: #### 4 [id number] #### [facility] [address] [place] [address] Dr. Dat Wesley Age Gdln ACOG Testing 21-29 Normal [facility] Comment on above: Performed By: #### 4 [id number] #### [facility] [address] [place] [address] Dr. Dat Wesley DIAGNOSIS: Comment Normal [facility] Comment on above: Result Comment: NEGA TIVE FOR INTRAEPITHELIAL LESION OR MALIGNANCY. Performed By: #### 4 [id number] #### [facility] [address] [place] [address] Dr. Dat Wesley Methodology: Comment [facility] Comment on above: Result Comment: This liquid based ThinPrep(R) pap test was screened with the use of an image guided system. Performed By: #### 4 [id number] #### [facility] [address] [place] [address] Dr. Dat Wesley Note: Comment [facility] Comment on above: Result Comment: The Pap smear is a screening test designed to aid in the detection of premalignant and malignant conditions of the uterine cervix. It is not a diagnostic procedure and should not be used as the sole means of detecting cervical cancer. Both false-positive and false-negative reports do occur. . Performed By: #### 4 [id number] #### [facility] [address] [place] [address] Dr. 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 Dat Wesley Reflex Criteria: Comment [facility] Comment on above: Result Comment: The HPV DNA reflex criteria were not met with this specimen result therefore, no HPV testing was performed. . Performed By: #### 4 [id number] #### [facility] [address] [place] [address] Dr. Dat Wesley Specimen adequacy: Comment Normal [facility] Comment on above: Result Comment: Sati sfactory for evaluation. Endocervical and/or squamous metaplastic cells (endocervical component) are present. Performed By: #### 4 [id number] #### [facility] [address] [place] [address] Dr. Dat Wesley HCG,Urineon 11-03-2021 Beta HCG ( test) Ql (U) Negative Normal [facility] Comment on above: Result Comment: PERF ORMED BY: [address] [place] [id number] PATHOLOGIST READING RECOVERY TEACHER SULTANA PETE M.D. Performed By: #### U HCG #### [place] [id number] [facility] Charles 11-03-2021 L - -------- Specimen: [id number] Received: 11/03/21 Status: AYDIN Alex Num: [id number] Spec Type: Surgical Subm Dr: Ezequiel Melo MD Tissues: A Small Intestine - Biopsy/Polyp (SMALL BOWEL) Procedures: HE Stain/2, Gross/Micro L4 -------- Patient Age/Sex Location Account Attending Physician -------- Leigh Singh [id number] Ezequiel Melo MD -------- SPEC NUM: [id number] RECD: 11/03/21 STATUS: AYDIN JOHNSON NUM: [id number] PAPI: 11/03/21 [facility] DR: Ezequiel Melo MD ENTERED: 11/03/21 [facility] DR: SPEC TYPE: Surgical DEPT: [...] is performed. This case is interpreted at [facility], [place], [place] -------- Specimen: Received: 11/03/21 Status: RAFAELChino Johnson Num: [id number] Spec Type: Surgical Subm Dr: Ezequiel Melo MD Tissues: A Small Intestine - Biopsy/Polyp (SMALL BOWEL) Procedures: HE Stain/2, Gross/Micro L4 -------- Patient: Leigh Singh [id number] (Continued) -------- Specimen: [id number] Received: 11/03/21 (Continued) Signed (signature on file) Gabe Ellis MD 11/06/21 1703 -------- Specimen: [id number] Received: 11/03/21 Status: RAFAELChino Johnson Num: [id number] Spec Type: Surgical Subm Dr: Ezequiel Melo MD Tissues: A Small Intestine - Biopsy/Polyp (SMALL BOWEL) Procedures: HE Stain/2, Gross/Micro L4 -------- Patient: Leigh Singh [id number] (Continued) -------- Specimen: Received: 11/03/21 (Continued) CPT Codes 88916 -------- -------- Specimen: Received: 11/03/21 Status: AYDIN Johnson Num: [id number] Spec Type: Surgical Subm Dr: Ezequiel Melo MD Tissues: A Small Intestine - Biopsy/Polyp (SMALL BOWEL) Procedures: MARIANN Stain/2, Gross/Micro L4 -------- Patient: FranciscoLeigh Craig [id number] (Continued) -------- Signed (signature on file) Gabe Ellis MD 11/06/21 1703 Normal [facility] SARS-CoV-2 (COVID-19) RNA OZZIE+probe Ql (Unsp spec) Negative Normal Negative [facility] Comment on above: Order Comment: Healt hcare Worker?: N Result Comment: Testing for SARS-CoV-2 by RT-PCR This test was developed and its performance characteristics determined by [employer] (my[employer]) and validated at the [facility]. This test has not been FDA [...] is terminated or revoked sooner. PERFORMED BY: [address] [place] [address] PATHOLOGIST READING RECOVERY TEACHER SULTANA PETE M.D. Performed By: #### C OVID 19 [facility] #### [address] Coding Summaryon 04-19-2021 Coding Summary HTMLBase 64 ReedilfzEEt8cBk+PGhlY WQ+KK8HFQHyR06bqYQcmC 4TJ9eLAR1XNYACUGGHBQ6 LTJ1jeJR5BCnlJ9LkjyKu QmkpwCWsTK17XJo3UPJ5m QrdOQzkeW6roJUeH0v1Hu NsKU02mT45YGehPCWnBuZ 3LjZpbjsgbWFy P9ysIzCmhOBuTuo+PHRhY mxlIHdpZHRoPScxMDAlJy JfcDajSU8mXp7xKPWpAAG vbGxhcHNlOiBj x4ckIMBtKBwyQC0bhCdvC 0JigUA9ZRNjn2x2Kx48eD I+CSBjSGR9xHjfQJeyv22 9EuQeh5scLJI6 oZItICrtCQM1G38zx2F5W HChQXEmPYN7xGN4zI7fqH agccmnS2OewUZaVfP6VUP 1vPJfpL0nsWpq aihbpU7tStx+D82BKO9BB UZUJA7UZbi5V1GcGudgxU I+KY45OSHfTU60gSLonFX wf2nvrZl4OiVr KRDmOLE9dBtmSZpgz8WuI IGaE56prKXpw5C9AWWtpD vuwAIbLvUdwZQ5bY6uIAm flznvm1tottaz Oivps4sjnw68nA37L47uG EzmADTxFDD8CPCuGNDnjL vsfg8rqC6vLj7+VCwad6w dw8luhUx4VxQk GPEjcuNqvLowIQY2a7EaH h26U1EgmGryp3SjFmc2qb 81xUPja5U7kHW7DKgaJBC vgJ3nJSexUtA5 BXMzJxPrzM61xWVnLSziR r4nrFivdItrVZ2dJXQqtg peZQNsvX3eOKGrdTMxzBn pJQ6fGRDngyvh m818GzNiMXZ0WZYxqUMpU 8EurF0rVvOmARXuEEDjJ3 XssWUvELlwT356FOtjSrJ 3ZQUkpeBsG9Bq WGLrbJrvYzF3s4U3Hd5It 1EwrscfBSB2YIktLAHdKj BrNsHdGoF1Q2NbAcp5IYF ntSycON8qC9Tc KUGgbnepvqulyIH7BOJkI MRlmP06fJKyJMzeNy5fc8 B7n891CITzTHWitE00Tx8 udDogMTBwdCBU eI7yzpgpc6kvqzrjKeFoE LKmKGc3OCe8WERopBhtRh CfHLU3KlX5USN8oWNibY7 liAhwietydB8t Oyc+Y55oiZ6jNEK4PPP6v jsyGKSeyrYhRY41GT29U8 RyPjwvdGFibGU+PGRpdiB dsXdjIN3tOcGa r8vna8GuVPtyA3IuXKNyQ KoyLst7ONCsNAR0qDY5hG 8wXUWeRSnob3U3iWT3G7F ezvZtgn0vp9aa OVGnHXxlY71slYIut9G7M UZkjLU4HZNhhVucSiEsdF 93Oyc+BTSvjKfdo6FaVup kl3yph8speAl3 KqXoFPFesrSwkBejCCG9v 6IsPz61T96dCAtaWDCpAP JkSQZlZADvgBqryp6viI2 wIi8+PGNvbCB3 xBJ9sK1jYACyUiJ7DXtcX 351WqVqxCFwNkbiq7iwk5 vxhOx3BhBcELQxivQwjYo iYEQ0h7TfVs02 J44tRLvjOWMdESMnRMXwJ VXfdMkokj8zcA6rGu9+PC 5vn0nuym51rI90yQY+PHR yXAZ5uEpaCClr DGEobO9hOFotTzF7IRYsS oGoaA66sKHcNAkmSv0crF mkdKgoCA9jXAKjjupws75 2UmZgi5zlFOCx gQOeDMzjBIT0Y10fn9M4F WMbNCCmAXT2rJV7sC2byP lnbjogbGVmdDsgdmVydGl qVUghDDreL271 IHRvcDsnPlBhdGllbnQgT fCmCDm9C6RqKaz2DWJtjV sqKH1eeLQcIEtdIy0dlCw slNcuBT4wQWOm ohint716DeWub3eyHMKwn OKrKLvmQZX6V72ck0V6WM SvYXEsPNU6kDY1bN5yxAv nbjogbGVmdDsg mkEaqVjyWVolBPoiT005O HRvcDsnPkJpcnRoIERhdG D7YJ94FN50sBApp6Z8sNL 5E5IrUQWopmtj gcwxdSH1TAQpLIJngO99L h6grRhrBb1gWHKhAVF8RP XcfMJqF0BumU3fJvUjFOB qGEPaH1KauJSa ZYxrT220YGnoEpZ8LGVbs mLjQ7GvVZOnoEpiHfO5z4 L7Ct0VB8G6PP28ME77uMH gi3M3pEC5F9Jv FJZwqjffjqckoTU8WVJvA OByiY83Kf2lgTjpOn5nMY KcGVA8STNyxXDiY1DmuV6 yOiAjMDAwMDAw V2VonDZhEBeyX839LBljM rS3GCJjkfYwS3OkCOHmuE jrWkX9o9Z4Wp6VQFv8UE2 3WB93eVPui4P2 tPM3A8PuNBHfccbeyvpyg OJ8AKRnWOGnyQ08Aq1yiC xgBt2iIIGvQNN7ALYgqJO bG5DcsD7pAdRb BUUvRQJzL1VxqEHtMGopO 782QOvsIpN5WXIxclByC2 NnLNDfbUtfGfS4t1V1Tm0 TDFScLR94TSH0 wAN5IQ74IL83Q9AvLifiw GFibGU+PHRhYmxlIHdpZH RoPScxMDAlJyBzdHlsZT0 tSb9pXFHwLMKn bYjisRHoVkIqw3ufDIExR GkkPD0spSktB7YlqYC9DR Xxz6e0Rq39D92gA5WdoCI +HXNajLY8hLF8 bK6qTpQyOsF5DIecM359G pBozFNcRlukc8agc8eicV y8JhU2BIUhupCciFgqXML 4b1CvHg80B81p IHdpZHRoPSIxNSUiIHZhb Fyqez9swH3dYn1+PGNvbC P7zHQ9vL1dTjUlYbT5WRz cI226BaUsuMRn Zftfq8cob9usuNu0VcDrY YDemlUkfPwoOHT0p6ZdRs 94Z7BvcGoio8FaAbc2wd6 0vKCxy4K6aHT6 B3YsQLCdftbbaGPbjDufF I8hZYXhsrzqGHHrwD8uXK ZgJ2w0RiCvLvQ8PVtyE0C uphI1FLJciFZy IDlxVTV3H08gh3T0HPMxN DVjFPA6cWD5yV8cgQhnmb ogbGVmdDsgdmVydGljYWw tZBvpR811MYWe cXvuJZZcrP7jUCKzdRLui GhqCR8lLAAbncbxRzRGVK REWSwgSEFOTkFIIEdSQUN NCO33HW07sAAy o4E2yRF3C5PuCDJqspjuj jeqnXU3YHRaUBPikW40oJ KoOSltAs6cj9S1p134MKW wNOJtaQ98Vl2x cSuiYQPxiHXDpM8atokcl 8jeqeybBrWyIYWqGTv5MF e7JKWqjDgzEiQkVJB3MfF 3BET3vHLomL0r fZhyeurfoL4qCpt+MDMvM DkvMjAwMTwvdGQ+PHRkIH Y6pWqeXEfzCJEmwZ5lNEM oT9n5MwOvJwB9 FPnuF6EyCQMvoliaFp16c Z2iAjDuKhZ9CFleC7Dmdh N1HBAwfQXoWPptZFV7H90 kk5W7HQCtQPLz YRJ6zTL2cG9nlDwubvhft GVmdDsgdmVydGljYWwtYW cfL946NFFdnSykVtXsCXr yQSTwOK06HU61 kGIwy3Z5mUV7A8OrOPGyu ardoaydyFV1DCTcHYXmlI 56pADkUZemOr4ry6S8l36 8MIQtVYNoaI74 Rf7qxPcvENJnmZKKbX9yl pigo8ylojktEeItXCQpKL p7QOo5FWLqzZzyYnGtZTT 0SrW5SPN8yVTh yV7mdNhowhayjB4vHoz+R hLPQTpLXN06KF46vJJgf6 T4yHY4O3MaGZZtxdfkkib ccNQ8GTMsIZNg iT50wWKqXIxvIg4oi0Q1d 287CRDaTJHgoO92Pe8jsX ybJYOewKFFnE6gvshgh8p vcjogIzAwMDAw RNa3BRj4FJYutHccKaMfZ EB8EwE7VGY8mMQcvI6ifR bsfcevzA3kZmk+W8Y6B6J kPjwvdHI+PC90 AYDeQS92lXHfpZXjs9vri Nk4CaRjWREbIBW5zMewKI gsi0AuQQFqY95agPJie3M 6IGNvbGxhcHNl FoUbuGT0mI9eKOiufpcyh 0phbmpfHhnbf2wuel56fT 01J13nRTspHLDaHSCjSRF yFIOhuXfufd0j oV6nVq5+LJSqzNI6mMV9w D3dHbElJpJ5XUzdJ858Yp TkhKLuNirms9ikv9eecVs 9IjIwJSIgdmFs xGgrOQP4m1CqSl21A36pE HdpZHRoPSIyMCUiIHZhbG wqrc5jsU4gGi9+JP1wt6n obs21bD31mLW+ WBChXZV9bNzjODclWXHxj C8rQQyyYrI7GDBfIkUdnF 35bAWwIOlhXu5ykJqhiHq qKR8sFRAtyhix y812LwJdl7aeDWKnxEPnE IklCYA1Q19tm6O3QMFrAN EkDGU6nYN1bU1cyYdutxg gbGVmdDsgdmVy cMszJLtvRPftF608APMow KvtDuTgkHSyX6dhycCQWW 1lOjwvdGQ+AYZoXHR4xVb sEKtlCQKsqW5x ZWJeL1a6TuQbApV6OXqrH 4BsgyR2VZWumJAaLBQooE IKrZ6ctoabf0noxlaqLdD eWKRpGWb0LEq2 IUKdpMmbZtHtYED9BtD6V EB3kSQetH4ftXhlajfeqN 9wOyc+RklOOjwvdGQ+PHR jTIY1cFrtOFjb SDFggQ8wPHVdV6r8PqIoC lB8ONabJ5JcmaC6KCJizR JmVQZzkTHXvY6chxtov0i vcjogIzAwMDAw JIj5JUv1QXYutFqkNkGqP UH3BsP3LYN7cXTgrG0alX yqnxgwnK6cOgk+TVJOOjw vdGQ+PHRkIHN0 lGcmTYmuECTxkS1hNSEpX 1p2BrZdGdN1CFpyU2Ddva W6TXKktBYoIBTcrDKJzA4 zxrdhc6imlhny QjWtJLOtRQg7SIm7QOVta LkxMnNbXRD8BkK4EQF9bJ CggQ4gcYotgwazvL6fDef +ILI9GYA3JO06 BO49P5GrDttapYCaaMB+P HRhYmxlIHdpZHRoPScxMD FiOkUgcYyhHB5rKl1xSDX yLWNvbGxhcHNl [employer] (more content not included)... [facility] Note- Provideron 04-06-2021 Urgent [...] and Plan Diagnosis Sprain of left foot (BPP65-PA S93.602A, Discharge, Medical) Plan Condition: Stable. Disposition: [...] she can arrange follow-up as needed. Normal [facility] ED Clinical Summaryon 2020 ED Clinical Summary [facility] ? Urgent Care [address] [place] [address] Clinical Summary PERSON INFORMATION Name: LEIGH MONTOYA Age: 20 Years Sex: FEMALE : 2000 MRN: Acct#: Visit Reason: UC - Ankle/Foot/Toe Pain or Swelling; LEFT FOOT PAIN Arrival: 04/05/2021 16:12:07 Discharge: 04/05/2021 17:50:00 LOS: 000 01:38 Check In: 04/05/2021 16:12:07 Checkout: 04/05/2021 17:50:00 Address: [facility] [address] PCP: Flex Wagn DO PROVIDER INFORMATION Provider Role Assigned Unassigned Monica Dunn [place] ATTENDANT Nurse 04/05/2021 16:14:32 Paul Atkins PA-C ED [...] Sprain Follow-Up: With: Address: When: JEFF Bernabe [employer] [address] [place], [place] [id number] Business (1) , only if needed With: Address: When: Flex Wang [address] [place] [id number] Business (1) Within 3 to 5 days DIAGNOSIS: Sprain of left foot Patient Understands: Yes - Patient/family/caregi nela verbalizes understanding of instructions given Comment: Normal [facility] ED Patient Summaryon 021 ED Patient Summary [facility] ? Urgent Care [address] [place], [place] [id number] PATIENT DISCHARGE INSTRUCTIONS Patient Information Name: LEIGH MONTOYA Age: 20 Years Date of : 2000 Reason For Visit: UC - Ankle/Foot/Toe Pain or Swelling; LEFT FOOT PAIN Arrival Time: 04/05/2021 16:12:07 Primary Care Physician: Flex Wang DO Attending Physician: Nirav Nunez Comment: Patient Education With: Address: When: JEFF Bernabe [employer] [address] [address] Business (1) , only if needed With: Address: When: Flex Wang [address] [facility] [place] [address] Business (1) Within 3 to [...] ? As (more content not included)... Normal [facility] Recordon 021 Urgent Care Record [facility] ? Urgent Care [address] [facility] [address] [place], [place] [id number] PATIENT DISCHARGE INSTRUCTIONS Patient Information Name: LEIGH MONTOYA Age: 20 Years Date of : 2000 Reason For Visit: UC - Ankle/Foot/Toe Pain or Swelling; LEFT FOOT PAIN Arrival Time: 04/05/2021 16:12:07 Primary Care Physician: Flex Wang DO Attending Physician: Nirav Nunez Comment: Visit Diagnosis: Diagnoses This Visit Sprain of left foot (S93.602A) UC - Ankle/Foot/Toe Pain or Swelling ([id number]) If you received any narcotics, sedation, or [...] With: Address: When: JEFF JESUS [address] [address] Business (1) , only if needed With: Address: When: Flex Wang [address] [facility], [place] [address] Business (1) Within 3 to 5 days Medication Information: The exam and treatment you received today in the [facility] were for an urgent problem and are not intended as complete care. It is important for you to follow up with a doctor, nurse practitioner, or physician?s butcher assistant for ongoing care. If your symptoms [...] so we can reach you if necessary. [facility] has provided you with a complete list of medications post discharge. Please inform your equipment or machinery cleaner/provider of your visit and for further instruction [...] are no br (more content not included)... [facility] XR Foot Complete Lefton 03-20 XR [...] Vishal Fernandez 04/06/21 8:27 am Technologist: NELIDA [facility] Coding Summaryon 08-01-2020 Coding Summary [employer]Base 64 ZfjnwnseUWz3kLf+PGhlY WQ+FM3RXEGsA95bvYEfoP 7JJ9oDCX4KSKUKAPIVAQ6 GWU4ozRL7DJnbT6UowfLs XgdeqHVbEB21XYx8FQF5u OehKVggqC2hpVTqN2r5Je XsQD39eF82WFztBJMwAxX 3LjZpbjsgbWFy I3gvNdQciGDoImk+PHRhY mxlIHdpZHRoPScxMDAlJy XqeEsiXS2gRf9iJPBiAXB vbGxhcHNlOiBj x7skGHCyEMumTZ3wvZgrK 4AzvRK0LVIcq3s3Yj35jE I+UFZvEBK6rTonEXvcd94 7IqBmf8szMOM4 jDZnDVpbXJY6M34kn9Q3K LVfHUGfPEA4wVS8qY4cuU woyvkrR0McbWLfLnY4NTL 6lIGtxF5riHsd hcmtaB1mIkr+M22OYY3OC NWWZO2BDpu9B8AwVxwitR I+PI73UMEhJC34oDDhwSY lh9juxMg6FdEz QUQwGKY8vUhoIJznp7AtL QEuV29igFFvb7K7MDFgkV hgtPOjXrVfjVQ1bK3nQBy lppilk3oiltwb Gwlml1ftpg24cC66K67uN FmrMSBqUJK7MYCvIEWebP mlwl6ogT0xNn3+CTihx4z ug6mhqUt9PfUf DRCdynXyvChaHXU4o2IaC p89I8XteEqbj5FpKjx6bd 77kWAxq4W8sKH9UWupWYH dcV6yAVaoAdH1 LHLiGkBeoI89eSBrAPiiQ z8rzNqdzVdgXF5uOSQeqy flFTLjlO2sQYNpyXQwmUr fVM1yGCJpywlj g764VkXbANF6CILtwELrA 6MqjL6mHcUuGOVnJMHwF3 UmhUIxHVxbQ930JUyyAiU 7SAOfqcHpY5Km EYHpaAkeEzD2s5P4Os0Cd 0PydwqqHST3VVxgFRGdYy H2OjCsKiA4M2EnHst2RLB avUlzAW6uB4Qg JVHxbpwfifeasWS9DRSiF CCnzE08wHJnXChtMe7wi0 R4o152GHGeSGYgrA46Mr6 udDogMTBwdCBU vZ3fyvwsb7bkhljhUoPtS UXjHTq9QHx8ILNqyMwlLw IoKGX2GgG5IJI3xALlpX5 cuVltnsbuzR6j Oyc+U67reD6cBND3IRR6o hkeAXQhrcSvKG61AI40U1 RyPjwvdGFibGU+PGRpdiB jnBuuVB8eDmZp w2ckd8VrHArqS9DpZRTgY ZcrGzt6LOPwAXB6bMU3bM 1pQMSqRFbik2L9fDV0M0V rpzGebh3sb5it JYGkWOujL95lvEMso1E8T PPbfSS9RJHsxYdmEjWonQ 93Oyc+RKQstRbfm8PdUwj qe9fpa3dohXc8 PhUgDAEyitSumPoeSFH4s 2NhQt56U61nVWyvFROsWU OkUTItJKRlsTlswk2fpB1 wIi8+PGNvbCB3 jAB2mA9oOVCgMoD6YYmoT 870HpEqbHAmEpwmw9wks8 zktEa4FjIpMUKnuwKpgKp tBGX5f7SpOs38 P37eRFuvDITxOZBeYXFnZ TGdmIymhm7stM5nJp9+PC 4ut0fbpn44zQ56qYN+PHR kNDR7hOseKGzq FPLvkB7gAWpyEzZ9SICxL mJoxX25xESqHJidSx1tqY bnlBveTO1uPGKduowel50 1GaXru0tlUYNm pCAqTJziTBY9D34gc9W3T GUzNYCkBMM0dKC9rG3vqN lnbjogbGVmdDsgdmVydGl jUEjnZGdyY321 IHRvcDsnPlBhdGllbnQgT zRsWSi9L9IgJfo3EDFhhA umER4crTYpRDypUa7pePl ovZbcAX6kWQAd umjkz227GgTas9cpVFSaz TBhCYhgMUB0K48yx9X6UY UvASQkDCC7kHS2mY4kzKu nbjogbGVmdDsg rmSzxYcyEZhuTSkaU371Y HRvcDsnPkJpcnRoIERhdG L6XK15TK74tHMcv8B0qEC 4P3HkUOMcenhr hiylwWL2FAPnECQlhD85Q y3gfWaoQi5eZQWnCME4CB HnpKVuB9WnkS8qNcKaSWW eLBQeN3LxgBCr OZwhL571UCqrJbE5DCGwi nTeP6LfAJWdwMjkFfJ7j3 G9Zu5AZ0M0OW10ZI16pPB cs6J3sHB3V6Ko MMCahnigsdwzkLW1SXAhD VWuuF75He9jfGbtDb1sOH QiSRM4VHFiiFPuG3JvaA0 yOiAjMDAwMDAw L2IwrHCaAFhzV674EWhmV uK9JVOzlrDmY0HgPVFxpG qrGeL6f7V7Oz8YDOl0MI3 4HY66tTOzg2D7 jVS5S6EwHFIovzamztufw QM1UULsTPFpoS23Fz9seM seFu9pLFVaUIZ5EXObsJL oM3WqsY3kCwUo VWKlHGAhZ2HnmKWsDQlbR 104LJfuMaI1RVOxstAmP0 PzKMQkpBgvVvF5g9M3Ob3 RYOVnNH95OSV3 wTM7EX23JY03I3CdIqwqd GFibGU+PHRhYmxlIHdpZH RoPScxMDAlJyBzdHlsZT0 sTg2dCTXwRIWc aPtjtMVoLbKjp0txMTRpH TrdAV3ehYexU2WxuOR4XF Khh1p1Mb11J32oR6YcvUU +KMBvdDS5mJS3 uK1gHrVlEfE1HGbfM081N zBrjUYcEsgmn9ysb1zweG k9CjR5RWTpyyPepMvaCUM 2e3ZbCq81T13u IHdpZHRoPSIxNSUiIHZhb Jffjr4buZ6kZt9+PGNvbC V6vAP9lC8nImDySlN6JOr mX181SxEpeTGh Bosvl7jcs4tymYe2DfGkT YBuwrKkjZlgNAO6u8LoIh 54L5NixVdli1QmSby3py9 4zQJzp2R4xVT9 D2MzKZEkwmgyvTZfwUcxS C6xPJKxzlnwUBQorP9oNL NrE4c9LvVvIzJ4GStiS1X gulT3GTJzaPVo ZWvcLMB7Z21xn2I6KGReC YMyMQA3vNO6tH2gvOkjji ogbGVmdDsgdmVydGljYWw iXJplG928SEFz aEclSVBlkC0bWOHdmMKlg NsnJF2oWMFxoeehVpKFBJ REWSwgSEFOTkFIIEdSQUN QSX26ND04zJUp h3X0hCA5P8QjDQRsbkqyr rlakEP9IISbITMdjO14lR HaGWxiDh4jw1Z3p553LPS nLMXojS99Xk2w oAmhXAOfoUNAzZ6kdcins 1mhuldoUlOkMRBqIIs2SN q5VCFgoVhlEyTgVTU3YoB 0UQH5xIKnlV3o lDmagfecpC3jZcg+MDMvM DkvMjAwMTwvdGQ+PHRkIH L7uRbhPSdpHESwvL3dYIA eX3m2AeCnHmG7 YVsrP4XpOBCjosmpBg00q E4oDpLvToT8XZxbB7Vqon N4HXZcmULsCQniAOK6J41 ko2N4VNEkVBSg TMY5dAE8nG4ygDivfobtl GVmdDsgdmVydGljYWwtYW cbD693DVVxoZplJaEqVVd vTIDeMO52FB33 eBLxr5V1zQA7P5IqXGOnv slrehflpPZ4TCMlFIUoaV 81bIQiEXyiSp1qf9E2y84 3FEScKXPzlM89 Xy5ktDkhIMJbzVRKnR5co nljl8wchvfaFnGtFVLdPE c3ZMm8XUCxwSeoUbIaLZR 9PwR7BAD8nSIp tH9yjKwqambhdF3oFag+R gOSXCbUOM60EW91xXMad6 U5lBE2K6GtBOIscauvsef hcRM9ICBcRQCq hP03rZWgJMlzKn4xm8C5s 039LBZsPXCpxR88Gz9lqZ obWDZmsERSpF9tynihj2u vcjogIzAwMDAw NBr1HDa6ASDdwZpoRaXdZ UN8ZxT2HWB0cMBtwQ1xdM fglahpvZ7mSli+J9E9V7Y kPjwvdHI+PC90 UYVhJN42yOKsdOZpz3swp Di3OrHbKMXvZVG4eYymHM uyg4MwBOJyU85weIWkt8G 6IGNvbGxhcHNl RzTvhBN4pZ8pAFouxfevw 9lyyuytEoarg1dhau60yD 80Y01gJJkfCKYdPOEtWQH jZGCjnTmxzv8s uB5wYl5+DEArzAF1bDK0o J8aUbQkIjP1BXvgJ603Aj RxyZRtLqkvo5ixd6afoRp 9IjIwJSIgdmFs yCbsDHN1o0IwPt19S33pB HdpZHRoPSIyMCUiIHZhbG bsoe2kjL1rNv5+RG4dk4k vsr04zB36zXS+ EGMjVPB1zKpbOYjiRGJua A7eKZucQsZ4SYVaSwWhxI 31rSAdAJtfBu4qhColfOf zIG6rXXEugwvl p189AzSei8szUDNviKHpV JrgUYN1Z60ei4F3HVWdMJ DkLAM4jNU5oJ3wtXsjylf gbGVmdDsgdmVy jVauKFwaJWbmQ111DNEla EclAqIgmKHvX9jtwaGOYG 1lOjwvdGQ+QPEgKYP9xJl rNUdrBHJgeZ4j LICnV5t7BvFhQiG7UIxtZ 7HxbhD4QWHgjUQtNJXqaP THrP9evobjy2tqcejaXwS rJACfKVn5DKg0 TCJgtOvwWwLwSDT2UwN5C MZ1bSVtyN9zmFlvrgfqwD 9wOyc+RklOOjwvdGQ+PHR xDAL5cKthJIvk YRStlP3xVYNmW9w4DwYfA xT5SDrhW1YxatF5QDYmoN EnORSyqZQCiA5xomiss9c vcjogIzAwMDAw JOw4TPx3FNDpbZxsIbEhH VO0RbJ0KPK4oKKwnX3tyJ yifjjwvL5nAgu+TVJOOjw vdGQ+PHRkIHN0 jCuzVVpgPHNtcO9sPHLhC 0m0FvCzRyW7SMfaH7Ijxx H4RRZmkNEyDUTbgANUkU5 rgetpw7tcrdgx ZlImCKYhMVi5BTv8XFEkn RudPuSyAKH3LrO5MVJ6gC RxbF4ttTjwkjauwV8pWey +ITQ4UEL1AC97 OV61Y4DvZhkcaKUjgTJ+P HRhYmxlIHdpZHRoPScxMD CiVzHphTerKW8xQn6fKEI yLWNvbGxhcHNl OiB (more content not included)... Normal [facility] C Throaton 07-31-2020 C Throat Ordered by Discern. Normal throat regi isolated No pathogens isolated Normal [facility] Comment on above: Performed By: #### [id number] ####[facility] (DEFAULT)[address] [place] [address] ED Clinical Summaryon 2020 ED Clinical Summary [facility] ? Urgent Care [address] [place] [address] Clinical Summary PERSON INFORMATION Name: LEIGH MONTOYA Age: 20 Years Sex: FEMALE : 2000 MRN: Acct#: Visit Reason: UC - Sore Throat; THROAT PAIN Arrival: 07/29/2020 09:44:22 Discharge: 07/29/2020 10:23:00 LOS: 000 00:39 Check In: 07/29/2020 09:44:22 Checkout: 07/29/2020 10:23:00 Address: [address] [place] [address] PCP: Flex Wang DO PROVIDER INFORMATION Provider [...] Negative . Impression and Plan Diagnosis Pharyngitis ([id number]-XV J02.9, Discharge, Medical) Plan Condition: Stable. Disposition: Discharged: Time 07/29/2020 10:17:00 (more content not included)... Normal [facility] ED Note - Provideron 021 ED Note - Provider Patient: LEIHG MONTOYA Age: 20 years Sex: FEMALE : [...] Negative . Impression and Plan Diagnosis Pharyngitis ([id number]-SP J02.9, Discharge, Medical) Plan Condition: Stable. Disposition: Discharged: Time 07/29/2020 10:17:00, to home. Patient was given the following educational materials: Pharyngitis, Qgac-de-Qqjq, Pharyngitis, Eqgm-wm-Cvon. Follow up with: Flex Wang Within 2 [...] on: 07/29/2020 10:20 EST] Patricia Meeks PA-C [facility] ED Patient Summaryon 021 ED Patient Summary [facility] ? Urgent Care [address] [place] [id number] PATIENT DISCHARGE INSTRUCTIONS Patient Information Name: LEIGH MONTOYA Age: 20 Years Date of : 2000 Reason For Visit: UC - Sore Throat; THROAT PAIN Arrival Time: 07/29/2020 09:44:22 Primary Care Physician: Flex Wang DO Attending Physician: Patricia Meeks PA-C Comment: Patient Education With: Address: When: Flex Wang [address] [facility], [address] [place] [id number] Business (1) Within 2 to 4 days [...] Follow these instructions at home: ? Take imvo-stx-javslmg and prescription medicines only as told by [...] 10/22/2008 Document Revised: 04/18/2018 Document Reviewed: 06/11/2017 [employer] Patient Education ? 2020 [employer]. Medication Information: The exam and treatment you received today in the [facility] were for an urgent problem and are not intended as complete care. It is important for you to follow up with a doctor, nurse practitioner, or physician?s butcher assistant for ongoing care. If your symptoms [...] so we can reach you if necessary. [facility] Emergency Department has provided you with a complete list of medications post discharge. Please inform your equipment or machinery cleaner/provider of your visit and for further instruction [...] Throat (C11 (more content not included)... Normal [facility] Strep Aon 07-29-2020 Strep procedure control Pass Normal [facility] Comment on above: Performed By: #### [id number] ####[facility] (DEFAULT)[address] [place] [id number] Streptococcus A Negative Normal Negative [facility] Comment on above: Performed By: #### [id number] ####[facility] (DEFAULT)[address] [place] [address] Urgent Care [facility] 021 Urgent Care Record [facility] ? Urgent Care [address] [place] [address] PATIENT DISCHARGE INSTRUCTIONS Patient Information Name: LEIGH MONTOYA Age: 20 Years Date of : 2000 Reason For Visit: UC - Sore Throat; THROAT PAIN Arrival Time: 07/29/2020 09:44:22 Primary Care Physician: Flex Wang DO Attending Physician: Patricia Meeks PA-C Comment: Visit Diagnosis: Diagnoses This Visit Pharyngitis (J02.9) UC - Sore Throat ([id number]) If you received any narcotics, sedation, or [...] With: Address: When: Flex Wang [address] [facility], [address] [place] [phone] Business (1) Within 2 to 4 days [...] and treatment you received today in the [facility] were for an urgent problem and are not intended as complete care. It is important for you to follow up with a doctor, nurse practitioner, or physician?s butcher assistant for ongoing care. If your symptoms [...] so we can reach you if necessary. [facility] has provided you with a complete list of medications post discharge. Please inform your equipment or machinery cleaner/provider of your visit and for further instruction [...] Follow these instructions at home: ? Take atlq-yrc-iresjyn and prescription medicines only as told by [...] help righ (more content not included)... Normal [facility] Coding Summaryon 06-27-2020 Coding Summary CODING DATE: 06/27/2020 [facility] STATUS: Home PAYOR: Commercial Insurance ADMIT [...] Nano Padilla Date Saved: 06/27/2020 12:37 pm [facility] ED Clinical Summaryon 2020 ED Clinical Summary [facility] ? Urgent Care [address] [place] [address] Clinical Summary PERSON INFORMATION Name: LEIGH MONTOYA Age: 19 Years Sex: FEMALE : 2000 MRN: Acct#: Visit Reason: UC - Ear Pain; UC - Ear Pain; RIGHT EAR PAIN Arrival: 06/18/2020 15:00:59 Discharge: 06/18/2020 15:27:00 LOS: 000 00:27 Check In: 06/18/2020 15:00:59 Checkout: 06/18/2020 15:27:00 Address: [address] [place] [address] PCP: Flex Wang DO PROVIDER INFORMATION Provider Role Assigned Unassigned Monica Dunn [place] ATTENDANT Nurse 06/18/2020 15:03:15 Marv Shannon ED PA 06/18/2020 15:03:24 VITALS INFORMATION Vital Sign Triage Latest Temperature Tympanic Temperature Temporal Artery Pulse Rate O2 Sat 98 % 98 % Respiratory Rate Blood Pressure /78 mmHg /78 mmHg MEDICAL INFORMATION Medications Given: Allergy Information: sulfamethoxazole; ibuprofen PHYSICIAN DOCUMENTATION DISCHARGE INFORMATION: Discharge Disposition: Home Discharge Location: Home PATIENT EDUCATION INFORMATION Instructions: Otitis Media, Adult, Csqu-jh-Enbp Follow-Up: With: Address: When: Flex Wang [address] [facility], [place] [address] Business (1) Comments: Begin on the amoxicillin-clavulana te antibiotic take every 12 hours for the next 10 days Follow-up with your primary care physician in 3-5 days for reevaluation, sooner if any worsening symptoms DIAGNOSIS: Otitis media, right Patient Understands: Yes - Patient/family/caregi nela verbalizes understanding of instructions given Comment: [facility] ED Patient Summaryon 021 ED Patient Summary [facility] ? Urgent Care [address] [place] [address] PATIENT DISCHARGE INSTRUCTIONS Patient Information Name: LEIGH MONTOYA Age: 19 Years Date of : 2000 Reason For Visit: UC - Ear Pain; UC - Ear Pain; RIGHT EAR PAIN Arrival Time: 06/18/2020 15:00:59 Primary Care Physician: Flex Wang DO Attending Physician: Marv Shannon Comment: Patient Education With: Address: When: Flex Wang [address] [facility], [address] [place] [id number] Business (1) Comments: Begin on the amoxicillin-clavulana [...] Follow these instructions at home: ? Take rgdr-qeq-ddlozph and prescription medicines only as told by [...] 10/22/2008 Document Revised: 04/18/2018 Document Reviewed: 05/27/2017 [employer] Patient Education ? 2019 [employer]. Medication Information: The exam and treatment you received today in the [facility] were for an urgent problem and are not intended as complete care. It is important for you to follow up with a doctor, nurse practitioner, or physician?s butcher assistant for ongoing care. If your symptoms [...] so we can reach you if necessary. [facility] has provided you with a complete list of medications post discharge. Please inform your equipment or machinery cleaner/provider of your visit and for further instruction on these medications. Any specific questions regarding your chronic medications and dosages should be discussed with your primary care physician(s) and/or pharmacist. [facility], [address] [place] [id number], [phone] amoxicillin-clavulana te (Augmentin 500 mg-125 mg oral [...] media, right (H66.91) UC - Ear Pain ([id number]) UC - Ear Pain ([id number]) If you received any narcotics, sedation, or any other medication that causes drowsiness for the next 24 hours, unless otherwise directed: ? Do not drive a car. ? Do not operate machinery such as power tools, lawn mowers, drills, sewing machines, or stoves ? Avoid alcoholic beverages and drugs for allergies, n (more content not included)... Normal [facility] Note- Provideron 06-18-2020 Urgent [...] Impression and Plan Diagnosis Otitis media, right ([id number] H66.91, Discharge, Medical) Plan Prescriptions: [facility] Pharmacy: Augmentin 500 mg-125 mg oral tablet (Prescribe): 1 tab(s), PO, q12hr, for 10 day(s), 20 tab(s), 0 Refill(s). Patient was given the following educational materials: Otitis Media, Adult, Yocs-tm-Qxrm. Follow up with: Flex Wang Begin on the amoxicillin-clavulana te antibiotic take every 12 hours for the next 10 days Follow-up with your primary care physician in 3-5 days for reevaluation, sooner if any worsening symptoms. Counseled: Patient, Regarding diagnosis, Regarding diagnostic results, Regarding treatment plan, Regarding prescription, Patient indicated understanding of instructions. Normal [facility] 021 Urgent Care Record [facility] ? Urgent Care [address] [id number] PATIENT DISCHARGE INSTRUCTIONS Patient Information Name: LEIGH MONTOYA Age: 19 Years Date of : 2000 Reason For Visit: UC - Ear Pain; UC - Ear Pain; RIGHT EAR PAIN Arrival Time: 06/18/2020 15:00:59 Primary Care Physician: Flex Wang DO Attending Physician: Marv Shannon Comment: Visit Diagnosis: Diagnoses This Visit Otitis media, right (H66.91) UC - Ear Pain ([id number]) UC - Ear Pain ([id number]) If you received any narcotics, sedation, or [...] With: Address: When: Flex Wang [address] [facility] [place] [address] Business (1) Comments: Begin on the amoxicillin-clavulana te antibiotic take every 12 hours for the next 10 days Follow-up with your primary care physician in 3-5 days for reevaluation, sooner if any worsening symptoms Medication Information: The exam and treatment you received today in the [facility] were for an urgent problem and are not intended as complete care. It is important for you to follow up with a doctor, nurse practitioner, or physician?s butcher assistant for ongoing care. If your symptoms [...] so we can reach you if necessary. [facility] has provided you with a complete list of medications post discharge. Please inform your equipment or machinery cleaner/provider of your visit and for further instruction on these medications. Any specific questions regarding your chronic medications and dosages should be discussed with your primary care physician(s) and/or pharmacist. [facility], [address] [place], [place] [id number], [phone] amoxicillin-clavulana te (Augmentin 500 mg-125 mg oral [...] Follow these instructions at home: ? Take bjxp-dxk-hivuejq and prescription medicines only as told by [...] (paralyzed). ? You (more content not included)... [facility] Consent Formson 04-28-2020 Consent Forms [id number] .[facility] 04-28-2020 Provider Orders [id number] .00[facility] Coding Summaryon 04-25-2020 Coding Summary CODING DATE: 04/25/2020 [facility] STATUS: Home PAYOR: Commercial Insurance ADMIT [...] Nano Padilla Date Saved: 04/25/2020 02:38 pm [facility] .QC Respiratory Panel 2.1 (B ioFire)on 04-22-2020 Internal Control-Resp Panel 2.1(BioFire) Pass [facility] Comment on above: Order Comment: Order ed by Holley.[[id number]] Performed By: #### 6 [id number], [id number] ####[facility] (DEFAULT)[address] [place] [address] Respiratory Panel 2.1 (BioFi re)on 04-22-2020 Adenovirus -BioFire Not detected Normal Not Detected [facility] Comment on above: Performed By: #### 6 [id number], [id number] ####[facility] (DEFAULT)[address] [place] [address] Bordetella parapertussis -BioFire Not detected Normal Not Detected [facility] Comment on above: Performed By: #### 6 [id number], [id number] ####[facility] (DEFAULT)[address] [place] [address] Bordetella pertussis -BioFire Not detected Normal Not Detected [facility] Comment on above: Performed By: #### 6 [id number], [id number] ####[facility] (DEFAULT)[address] [place] [address] Chlamydia pneumoniae -BioFire Not detected Normal Not Detected [facility] Comment on above: Performed By: #### 6 [id number], [id number] ####[facility] (DEFAULT)[address] [place] [address] Coronavirus 229E (Not COVID-19) -BioFire Not detected Normal Not Detected [facility] Comment on above: Performed By: #### 6 [id number], [id number] ####[facility] (DEFAULT)[address] [place] [address] Coronavirus HKU1 (Not COVID-19) -BioFire Not detected Normal Not Detected [facility] Comment on above: Performed By: #### 6 [id number], [id number] ####[facility] (DEFAULT)[address] [place] [address] Coronavirus NL63 (Not COVID-19) -BioFire Not detected Normal Not Detected [facility] Comment on above: Performed By: #### 6 [id number], [id number] ####[facility] (DEFAULT)[address] [place] [address] Coronavirus OC43 (Not COVID-19) -BioFire Not detected Normal Not Detected [facility] Comment on above: Performed By: #### 6 [id number], [id number] ####[facility] (DEFAULT)[address] [place] [address] Employed in healthcare? No Invalid Interpretation Code [facility] Comment on above: Performed By: #### 6 [id number], [id number] ####[facility] (DEFAULT)[address] [place] [address] Group care resident? No Invalid Interpretation Code [facility] Comment on above: Performed By: #### 6 [id number], [id number] ####[facility] (DEFAULT)[address] [place] [address] Human Metapneumovirus -BioFire Not detected Normal Not Detected [facility] Comment on above: Performed By: #### 6 [id number], [id number] ####[facility] (DEFAULT)[address] [place] [address] Human Rhinovirus/Enterovir us -BioFire Not detected Normal Not Detected [facility] Comment on above: Performed By: #### 6 [id number], [id number] ####[facility] (DEFAULT)[address] [place] [address] In ICU? No Invalid Interpretation Code [facility] Comment on above: Performed By: #### 6 [id number], [id number] ####[facility] (DEFAULT)[address] [place] [address] Influenza A (no subtype) -BioFire Not detected Normal Not Detected [facility] Comment on above: Performed By: #### 6 [id number], [id number] ####[facility] (DEFAULT)[address] [place] [address] Influenza A -BioFire Not detected Normal Not Detected [facility] Comment on above: Performed By: #### 6 [id number], [id number] ####[facility] (DEFAULT)[address] [place] [address] Influenza A H1 -BioFire Not detected Normal Not Detected [facility] Comment on above: Performed By: #### 6 [id number], [id number] ####[facility] (DEFAULT)[address] [place] [address] Influenza A H1-2009 -BioFire Not detected Normal Not Detected [facility] Comment on above: Performed By: #### 6 [id number], [id number] ####[facility] (DEFAULT)[address] [place] [address] Influenza A H3 -BioFire Not detected Normal Not Detected [facility] Comment on above: Performed By: #### 6 [id number], [id number] ####[facility] (DEFAULT)[address] [place] [address] Influenza B -BioFire Not detected Normal Not Detected [facility] Comment on above: Performed By: #### 6 [id number], [id number] ####[facility] (DEFAULT)[address] [place] [address] Mycoplasma pneumoniae -BioFire Not detected Normal Not Detected [facility] Comment on above: Performed By: #### 6 [id number], [id number] ####[facility] (DEFAULT)[address] [place] [address] Parainfluenza Virus 1 -BioFire Not detected Normal Not Detected [facility] Comment on above: Performed By: #### 6 [id number], [id number] ####[facility] (DEFAULT)[address] [place] [address] Parainfluenza Virus 2 -BioFire Not detected Normal Not Detected [facility] Comment on above: Performed By: #### 6 [id number], [id number] ####[facility] (DEFAULT)[address] [place] [address] Parainfluenza Virus 3 -BioFire Not detected Normal Not Detected [facility] Comment on above: Performed By: #### 6 [id number], [id number] ####[facility] (DEFAULT)[address] [place] [address] Parainfluenza Virus 4 -BioFire Not detected Normal Not Detected [facility] Comment on above: Performed By: #### 6 [id number], [id number] ####[facility] (DEFAULT)[address] [place] [address] status? Not Invalid Interpretation Code [facility] Comment on above: Performed By: #### 6 [id number], [id number] ####[facility] (DEFAULT)[address] [place] [address] Respiratory Syncytial Virus -BioFire Not detected Normal Not Detected [facility] Comment on above: Performed By: #### 6 [id number], [id number] ####[facility] (DEFAULT)[address] [place] [address] SARS-CoV-2 (COVID-19) RNA OZZIE+probe Ql (Unsp spec) Not detected Normal Not Detected [facility] Comment on above: Performed By: #### 6 [id number], [id number] ####[facility] (DEFAULT)[address] [place] [address] SARS-CoV-2 (COVID-19) RNA OZZIE+probe Ql (Unsp spec) No Invalid Interpretation Code [facility] Comment on above: Performed By: #### 6 [id number], [id number] ####[facility] (DEFAULT)[address] [place] [address] Symptomatic as defined by CDC? No Invalid Interpretation Code [facility] Comment on above: Performed By: #### 6 [id number], [id number] ####[facility] (DEFAULT)[address] [place] [address] Vital Signs Date Time Vital Sign Value Performing Clinician Facility 12-06-2021 16:30-0400 Body height 160.02 cm Ezequiel Melo Other [facility] Other 12-06-2021 16:30-0400 Body mass index (BMI) [Ratio] 41.62 kg/m2 Ezequiel Melo Other [facility] Other 12-06-2021 16:30-0400 Body weight 106.6 kg Ezequiel Melo Other [facility] Other 10-11-2021 14:45-0400 Body height 160.02 cm Ezequiel Melo Other [facility] Other 10-11-2021 14:45-0400 Body mass index (BMI) [Ratio] 41.98 kg/m2 Ezequiel Melo Other [facility] Other 10-11-2021 14:45-0400 Body weight 107.5 kg Ezequiel Melo Other [facility] Other 10-11-2021 14:45-0400 Diastolic blood pressure 79 mm[Hg] Ezequiel Melo Other [facility] Other 10-11-2021 14:45-0400 Systolic blood pressure 128 mm[Hg] Ezequiel Melo Other [facility] Other Encounters Encounter Date Encounter Type Care [...] 12-06-2021 End: 12-06-2021 ambulatory Ezequiel Melo Other [facility] Other Start: 12-06-2021 Patient encounter procedure Ezequiel Melo [facility] Gastroenterology Start: 10-11-2021 End: 10-11-2021 ambulatory Ezequiel Melo Other [facility] Other Start: 10-11-2021 FQ visit new patient Ezequiel Melo [facility] Gastro[facility] Payers Date Payer Category Payer Unknown [id number] 2000 Unknown [id number] 2.16.84 [id number] 2000 Unknown [id number] 2.16.84 [id number] 2000 Unknown [id number] 2.16.84 [id number] 2000 Unknown [id number] 2.16.84 [id number] 2000 Unknown [id number] 2.16.84 [id number] 2000 Unknown [id number] 2.16.84 [id number] 2000 Unknown [id number] 2.16.84 [id number] 2000 Unknown [id number] 2.16.84 [id number] 1959 Unknown [id number] Medicaid [id number] 2. [id number] Social History Date Type Detail Facility Sex Assigned At [facility] Other Evaluation note 12-06-2021 Note Date & Type Note Facility 12-06-2021 Evaluation note Encounter Date Diagnosis Assessment Notes Nov, Dyspepsia (ICD-10 - K30) patient states does have some bloating in the left center she does have pain noted. patient is advised that we can start levsin and refer to plasterer tender for food testing. [facility] Other Evaluation note 05-25-2022 Note Date & Type Note Facility 10-11-2021 Evaluation note Encounter Date Diagnosis Assessment Notes September, Bloating (ICD-10 - R14.0) September, Dyspepsia (ICD-10 - K30) September, Abdominal pain (ICD-10 - R10.9) [facility] Other Clinical Note 04-05-2021 Note Date & [...] This may take several hours. ? Take vokm-gjh-hxldswi and prescription medicines only as told by your health care provider. ? When you can walk without pain, wear supportive shoes that have stiff soles. Do not wear flip-flops, and do not walk barefoot. ? Keep all follow-up visits as told by your health care provider. This is important. Contact a health care provide (more content not included)... [facility] Clinical Note 07-29-2020 Note Date & Type Note Facility 07-29-2020 Note Patient Education Ma terials Follows:Disease Pharyngitis Pharyngitis is a sore throat (pharynx). This is when there is redness, pain, and swelling in your throat. Most of the time, this condition gets better on its own. In some cases, you may need medicine. Follow these instructions at home: ? Take hjhc-rxw-wjisqop and prescription medicines only as told by [...] 10/22/2008 Document Revised: 04/18/2018 Document Reviewed: 06/11/2017 [employer] Patient Education ? 2019 [employer]. [facility] Clinical Note 06-18-2020 Note Date & Type Note Facility 06-18-2020 Note Patient Education Ma terials Follows: Otitis Media, Adult Otitis media means that the middle ear is red and swollen (inflamed) and full of fluid. The condition usually goes away on its own. Follow these instructions at home: ? Take ydak-ebr-mcevlpw and prescription medicines only as told by [...] 10/22/2008 Document Revised: 04/18/2018 Document Reviewed: 05/27/2017 [employer] Patient Education ? 2019 [employer] [facility]. [facility] Clinical Note 04-22-2020 Note Date & Type Note Facility 04-22-2020 Note Nasal swab performed without complication. Patient tolerated well. Education given. Patient verbalized understanding. [Electronically Signed on: 04/22/2020 15:05 EST] Miri Nuñez RN [Verified on: 04/22/2020 15:05 EST] Miri Nuñez RN [facility] History general Narrative - Reported Note Date & Type Note Facility History general Narrative - Reported Type Medical History PCOS Medical History Endometriosis Surgical History laparoscopy - endometriosis [facility] Other Reason for referral (narrative) Note Date [...] is able to get in before this. [facility] Other Reason for visit Narrative Note Date & Type Note Facility Reason for visit Narrative PATIENT HERE AT THE REQUEST OF DR. VERGARA FOR EVALUATION & TREATMENT OF BLOATING [facility] Other Reason for visit Narrative Note Date [...] of the side effects that were listed. [facility] Other Summary Purpose Family History No Family History Records FoundNo Family History Records FoundNo Family History Records FoundNo Family History Records Found Advance Directives No Advanced Directives Records FoundNo Advanced Directives Records FoundNo Advanced Directives Records FoundNo Advanced Directives Records Found Additional Source Comments INFORMATION SOURCE (unrecogn ized section and content) DATE CREATED AUTHOR 04/21/2021 [facility] DATE CREATED AUTHOR AUTHOR'S ORGANIZ ATION 11/08/2021 [facility] DATE CREATED AUTHOR AUTHOR'S ORGANIZ ATION 09/06/2022 [facility] DATE CREATED AUTHOR AUTHOR'S ORGANIZ ATION 01/04/2024 [facility] FOR RECORDS PERTAINING TO PATIENTS WHO ARE [...] BE BASED ON THE PRIMARY CLINICAL RECORDS. [employer] provides no warranty or guarantee of the accuracy or completeness of information in this document.
--- NOTE | 2024-01-23 15:52 | US_ITS ---
[address] [address] Patient Name: SHAQUILLE VIEYRA MRN: [facility]:[id number] date: 2000 Sex: F Assigned Patient Location: [facility] Current Patient Location: Accession/Order Number: [id number] Exam Date: 01/23/2024 16:02 Report Date: 01/24/2024 04:15 At the request of: MIRIAM HAWLEY Procedure: US OB BPP w non-stress EXAMINATION: US OB BPP w non-stress HISTORY: INDUCED HYPERTENSION O13.9 COMPARISON: ULTRASOUND OB GROWTH 01/22/2024 TECHNIQUE: Ultrasound biophysical profile was performed in the radiology department. BREATHING MOVEMENTS: 2 GROSS BODY MOVEMENTS: 2 TONE: 2 QUALITATIVE AMNIOTIC FLUID VOLUME: 2 PRESENTATION: CEPHALIC HEART RATE: 133.66 bpm AMNIOTIC FLUID VOLUME: 16.30 cm GESTATIONAL AGE: 33 weeks 4 days US/US OB BPP w non-stress IMPRESSION: Total biophysical profile score: 8 Electronically authenticated by: KEEGAN HUMPHREY Date: 01/24/2024 04:15
[2024-01-23 16:21] VITALS: BP 133/79; PULSE 95
== END 2024-01-23 16:48 | disposition home or self-care (01) ==
LOC: US 07:05 → FBC 15:51
PROVIDERS: Visit Provider Physician Assistant
DX: O36.63X0 Maternal care for excessive fetal growth, third trimester, not applicable or unspecified (principal); O13.9 Gestational [pregnancy-induced] hypertension without significant proteinuria, unspecified trimester; Z3A.33 33 weeks gestation of pregnancy
CPT/HCPCS: 76818

== ENCOUNTER 2024-01-27 07:08 | Outpatient (OUT) | payer OTHER, SELFPAY ==
--- OUTSIDE RECORDS SUMMARY | 2024-01-27 07:10 | XMS_ITS | CCD ---
Author Organization [facility] Care Team Providers Care Air Defense Control Officer Name Role Phone Ezequiel Melo Unavailable [facility], DR MIRANDA Primary Care Unavailable JAI ., DR UNDERWOOD Admitting Unavailable JAI ., DR UNDERWOOD Consulting Unavailable JAI ., DR UNDERWOOD Attending [facility]available [facility] Primary Care Unavailable JAI ., DR UNDEROWOD Admitting Unavailable JAI ., DR UNDERWOOD Consulting Unavailable JAI ., DR UNDERWOOD Attending Unavailable YASMINE VERGARA Attending Unavailable YASMINE VERGARA Attending Unavailable YASMINE VERGARA Attending Unavailable MIRIAM HAWLEY Attending Unavailable YASMINE VERGARA Attending Unavailable Allergies Allergy Classification Reported Allergen(s) Allergy Type Date of Onset Reaction(s) Facility (2 sources) [facility]ulf[facility] Other (1 source) Sulfonamides (Antibiotic) Drug allergy (disorder) [facility] Repository Medications Current Medications Medication Drug Class(es) [...] to 29on 09-06-2022 . . Normal [facility] Comment on above: Performed By: #### 4 [id number] #### [facility] [address] [place] [address] Dr. Dat Wesley Age Gdln ACOG Testing 21-29 Normal [facility] Comment on above: Performed By: #### 4 [id number] #### [facility] [address] [place] [address] Dr. Dat Wesley DIAGNOSIS: Comment Normal [facility] Comment on above: Result Comment: NEGA TIVE FOR INTRAEPITHELIAL LESION OR MALIGNANCY. Performed By: #### 4 [id number] #### [facility] [address] [place] [address] Dr. Dat Wesley Methodology: Comment [facility] Comment on above: Result Comment: This liquid based ThinPrep(R) pap test was screened with the use of an image guided system. Performed By: #### 4 [id number] #### [facility] [address] [place] [address] Dr. Dat Wesley Note: Comment [facility] Comment on above: Result Comment: The Pap smear is a screening test designed to aid in the detection of premalignant and malignant conditions of the uterine cervix. It is not a diagnostic procedure and should not be used as the sole means of detecting cervical cancer. Both false-positive and false-negative reports do occur. . Performed By: #### 4 [id number] #### [facility] [address] [place] [address] Dr. Dat Wesley Performed by: Comment Normal [facility] Comment on above: Result Comment: Singh Sanders Machine Shop Inspector (ASCP) Performed By: #### 4 [id number] #### [facility] [address] [place] [address] Dr. Dat Wesley Reflex Criteria: Comment [facility] Comment on above: Result Comment: The HPV DNA reflex criteria were not met with this specimen result therefore, no HPV testing was performed. . Performed By: #### 4 [id number] #### [facility] [address] [place] [address] Dr. Dat Wesley Specimen adequacy: Comment Normal [facility] Comment on above: Result Comment: Sati sfactory for evaluation. Endocervical and/or squamous metaplastic cells (endocervical component) are present. Performed By: #### 4 [id number] #### [facility] [address] [place] [address] Dr. Dat Wesley HCG,Urineon 11-03-2021 Beta HCG ( test) Ql (U) Negative Normal [facility] Comment on above: Result Comment: PERF ORMED BY: [address] [place] [id number] PATHOLOGIST DAIRY EQUIPMENT REPAIRER SULTANA PETE M.D. Performed By: #### U HCG #### [place] [id number] [facility] Charles 11-03-2021 L - -------- Specimen: [id number] Received: 11/03/21 Status: AYDIN Alex Num: [id number] Spec Type: Surgical Subm Dr: Ezequiel Melo MD Tissues: A Small Intestine - Biopsy/Polyp (SMALL BOWEL) Procedures: HE Stain/2, Gross/Micro L4 -------- Patient Age/Sex Location Account Attending Physician -------- Liegh Singh [id number] Ezequiel Melo MD -------- SPEC NUM: [id number] RECD: 11/03/21 STATUS: AYDIN JOHNSON NUM: [id number] PAPI: 11/03/21 [facility] DR: Ezequiel Melo MD ENTERED: 11/03/[address] [facility] [address]: SPEC TYPE: Surgical DEPT: S ORDERED: [...] This case is interpreted at [facility], [place], [place] -------- Specimen: Received: 11/03/21 Status: RAFAELChino Johnson Num: [id number] Spec Type: Surgical Subm Dr: Ezequiel Melo MD Tissues: A Small Intestine - Biopsy/Polyp (SMALL BOWEL) Procedures: HE Stain/2, Gross/Micro L4 -------- Patient: Leigh Singh [id number] (Continued) -------- Specimen: [id number] Received: 11/03/21 (Continued) Signed (signature on file) Gabe Ellis MD 11/06/21 1703 -------- Specimen: [id number] Received: 11/03/21 Status: RAFAELChino Johnson Num: [id number] Spec Type: Surgical Subm Dr: Ezequiel Melo MD Tissues: A Small Intestine - Biopsy/Polyp (SMALL BOWEL) Procedures: HE Stain/2, Gross/Micro L4 -------- Patient: Leigh Singh [id number] (Continued) -------- Specimen: Received: 11/03/21 (Continued) CPT Codes 79568 -------- -------- Specimen: Received: 11/03/21 Status: AYDIN Johnson Num: [id number] Spec Type: Surgical Subm Dr: Ezequiel Melo MD Tissues: A Small Intestine - Biopsy/Polyp (SMALL BOWEL) Procedures: MARIANN Stain/2, Gross/Micro L4 -------- Patient: FranciscoLeigh Craig [id number] (Continued) -------- Signed (signature on file) Gabe Ellis MD 11/06/21 1703 Normal [facility] SARS-CoV-2 (COVID-19) RNA OZZIE+probe Ql (Unsp spec) Negative Normal Negative [facility] Comment on above: Order Comment: Healt hcare Worker?: N Result Comment: Testing for SARS-CoV-2 by RT-PCR This test was developed and its performance characteristics determined by [employer] and validated at the [facility] [...] is terminated or revoked sooner. PERFORMED BY: [address] [place] [address] PATHOLOGIST DAIRY EQUIPMENT REPAIRER SULTANA PETE M.D. Performed By: #### C OVID 19 [facility] #### [address] Coding Summaryon 04-19-2021 Coding Summary HTMLBase 64 VsspgjflSXj0kOd+PGhlY WQ+KI7JMGOeS67gjCHpsC 7FY4uBQJ1LAFQFCGGRWY1 FXF8bqYZ7WAitF2WisaMx ZvxehENwQQ48UTj8LJN8g VxmBRjlnI9ewZJdG6c1Nj YtDE26jP20ZEthRSXmKoB 3LjZpbjsgbWFy N8seUtIshVWeLmb+PHRhY mxlIHdpZHRoPScxMDAlJy GxeDkdCY1dGl9kOAFiFAE vbGxhcHNlOiBj b6kpTROxLDinRF4doJykB 1JsiTD0UXZot4x5Tq38aY I+PUNqTBW1bIctTNjvh36 4LnHlp0woCJN9 hZQpBAleWOI1T90dm7U2Q VBoUBZqCLT7iTL8uQ6vrB iuuldhR2HtqZPyKsH4HBT 4rNYljP7aiByc fiielL1lObi+L09EQO2NM KGTPK1PUjp3J8MuKkgdsG I+ST33QTRwRW94oDKwoXB ow4hlcAo5OzKd CMBjZJF9uMsxROuls2ZkJ QHkF49gaHCoj8P0ZGMzdW avvKYgWiGobLK1nJ7vBPa tajymp4kuueiy Tpevx5gwjl54hY57Z71oA CvaSVBoTUY9GQEwEAYuhH pino0hiY0xOk2+EGngt2e sa8alkIq7RsEy EVEdonZeiOkzJWY5z6DsP e09J6UhjFdnn8FmAyn3kt 57uDWry3J2aDF3LAvsBXC dlQ2fVHalGeN9 JYThIoClfE27qLFmGMccZ u7ckZwfmTkwBU1hHUDtfj xvAWLkfH9eRSYeiPHiwPi sNW9bRAGytjdt o819CnQbBFR0TAMrcIPhA 4EkfX2tIhIzDCQcDSWfR1 WupVRqRChkV789DBgnIxR 7TZEhlaTiJ1Zg FXXuzMxeIoP3g3X5Qg0Dz 8XbfiqsCID0EPuoDUYfRx KuFiXmSgQ6O9JdVey4HFT wlYctAX9pV1Ec KXRnagxwcgiyuIG5GBCuX YFivU13hTSsAWpeFe6mv8 K7p664HGIdZEHtxP46Zd2 udDogMTBwdCBU pH5tjetcw5ozvkhcTiRwF DXxLPw7LOe0QAIebNdtXt KsAFF1PaR9JQJ9vLXzvS0 sqImmttpihP1s Oyc+M84wbG4fCZT7ZCU4a mxhBFPeuwYsAW24UR74A0 RyPjwvdGFibGU+PGRpdiB eaHyeKY3dOyOo g1umc2ToCXbgS0SiQHUqV BzzCkt3XLWaLZL6bJY4xR 9wBNRwHMpob7X0qRM6X3B crtCwpp4oz3ho ZKRsQBsbH89idZRzo0K4Q HEvuTJ8BUJngEbiAyCoyH 93Oyc+SRViyRrqz1WqVrg yc6xre0jjdBv6 GlUmPCCbhsKlrAmkPZD1v 5WcCu21R03hWZfmQBArOD JvTRHhPOArlDjure1gpG1 wIi8+PGNvbCB3 rCR9kE8uHXJrPoZ5GQvrG 626FdXouRDgNketb4thk9 dkgRd9AdYoRXKstiWbgSd hAAQ5t0IuFx41 Z20tKPorFGHkYLQgIVCzL CFggPqdfj1auL4vCe0+PC 8po6vycq56nW71iAA+PHR aDSP3pClzWXpt NSQfsR4tJUyjJkF2SQUiJ nFwjS84tCQkTDywUz0rcC hzkVevWR9iLQLubulho03 1BjNzs6xzZYZo hGChSXmaQNI6L08pg2V1G IOyULHtYSP7qJH8aY5loA lnbjogbGVmdDsgdmVydGl dNBniAXujK267 IHRvcDsnPlBhdGllbnQgT bZiSEs5U7XnJmf0AJOovA cvNN8mhWHvOYkrVv0sfUd qiRyfBW2qUSQg xxocn464EhPso5raUTNmo JNyMRwlABP3H86vn1A7RN QvXZBeVDF1jKV8uC1zxGt nbjogbGVmdDsg bjUhjFckWQavIEnhL531B HRvcDsnPkJpcnRoIERhdG K9SF93VI19oMUic8W6qYF 5I0TrMGGpywsv ghgowMC5GJUuKCFfnU39X o9ltMdoIp6aDWShKHU5ZU VxiRJpW6IrzB8bLdFfLDL fIVOaH0OkoLEr CLyeM182GTckHnN1SEXwj dSpT9JzPQMjcDhcGeI3w9 R1Sn9KB9X7JC25TF16iUU dq8V8vKK8X2Lu JLIiehtnckrccRO5FCWdZ IFnfL62Db4ocHgpNi6fUY LhGPY6IOQnwXDlA9RryB8 yOiAjMDAwMDAw R5KfjLWpPVdxZ936ACdwB yH8MLQemlYqX2JuVIXxcP vyRkJ1g4J8Dy4ENEf7QX4 7EA40sXRbw0O0 iKT7K1PpISVlfxhytpihl WS8DVBaPGAltV64Rj6epP ntQd5cJWKrQPB7KDZqlPE qS1VasG2bWoIk NIAfGCYbM2EgzOOtGTwpE 166COqyCkT3OAXwqgShY1 LvZDLipEwqJuE3t9L9Pv4 DAIPdZC60MDZ1 wLK9XM08VV73E4ZsRbwzq GFibGU+PHRhYmxlIHdpZH RoPScxMDAlJyBzdHlsZT0 yXz2vGDRiYYZh jZxtoQEwAeDev5irUIJmZ GebZI9prQvtT9RmeAG0LV Xwv9n9Rk42G94iP6FlnGV +ZVRhgDT4oFH4 mU6mXfQvVgK8JFknL495X wXuhCIfFprju3lih7hqzF v3QhT0MRSddxRtzQarZTP 3w0ReRp75L89i IHdpZHRoPSIxNSUiIHZhb Zolhk5cvZ6sQo2+PGNvbC M6iXA3mY7tMeUwQpY1XKw kA058NkOgiMTb Meicg2hqq0gedHf9EeJlX HKdpmIkcNpyUMG8w7VkUp 82Z0XmvIfol5DqNgl8gx5 5jZJfa8W7mAH0 J0CcSNAwqlkjcAQdzWamY Z7yKEOpsvgnVWZsaD7sRW JoS8q9YuKmBtC2HFayT3Z wybZ9YWXpqDXu AXgkADS7T59nm5J6OPKkD HQwKEM6nVJ4kQ0ckZjszl ogbGVmdDsgdmVydGljYWw lBYgiH686PPJp jQhcCBMwsL8tKGLoxOMno RkfAT3cTEXifyneLvGLAD REWSwgSEFOTkFIIEdSQUN KQV49DS76gLEa t0G7gIJ3C7JiVROxvwjrd bqukGZ5MPQoMOVmgF88nP PgRJwrSs7ay8M5p052BBC lPEUmaC42Kd4v iXfpMCHoySBZqS6ukixsz 4lbylriLbLmSNAxXTt4JD r8IFCfeTsgVxNkMAB4IkN 3LVZ8sAGwiB0i kSapaqfaaH2jFsl+MDMvM DkvMjAwMTwvdGQ+PHRkIH V6gClkVPawSFCpjR7jHPP uP8n9IjLnMyW1 PYsbC6NrXFVjunduSk58z V0nYxBsLhD5SCksN4Mnxn Q2PDEggZIhJHluQZH7Y48 vo1H9JRSwYOEd UGQ8oEA4nQ4qiCivpwcwe GVmdDsgdmVydGljYWwtYW jtI638GMArqUucSeRaGUf sJFLnPA67NI23 iMOoc0J0mFL4O9QuKBBqj utfarqcvQN2SKFkPADuyE 22eGFrVPlhGj2du0T7a23 4DJMeQCLxwH34 Yk9pjFphEWHlxAIPzZ5ev edwg9dwgulyBmCpVIByCK d2JKv5YVJqsSzjCxGlUOU 6GrO0MOK7dYNd sC9qgLrawwgmmN6sVlf+R pMLGWiOFO49TL17vPNgn3 W8eGA9M5KcWPBbwwvngzh jwVU3WQRyBCBi kB49nMGkYQqfMp6gd6O4b 805VBKhKBTvoR82Mw2jfC ktGJBqwAVRzM0joairk4s vcjogIzAwMDAw WWp7CNr3MQVkcVlaJwBvS MJ2OlU7JYN3bJTvfB0cgN gidqyfaD9yNmz+L6X0P8T kPjwvdHI+PC90 JXImTW92bCDarVOqu6aar Ha4AtJwFUNqPQL6bFuyKL zjl5CwFVYkY14yqLVmh8D 6IGNvbGxhcHNl FkDaqUN6hS4mMKfayylgc 0qvehfqFnxrb6yztk06yM 23M18iYQmoTIVpUIOfGQH aAZYzuTwqra7g oL1vIf4+RHWdyNF1tTV9a R0gGpWpOmY8XDjpK527Op HveMTgExark6bno9devQy 9IjIwJSIgdmFs dItwCXH7h7GaVy98M65fC HdpZHRoPSIyMCUiIHZhbG nmaq0yuH3dEx3+EL2ei3s lqb34dV84rYW+ CGDmXPN1hWrkKDjoSVScb O7jKBguHkS8BRTzMpHmiG 05qXTmWHcxJg0nrZsxuOe kED8oLFXkghoi t082OhFow0qzTZKvjVQjL OjfSGU2M10lm2X9FJVsAF FxNVB2zIU0tT0lfPgjewo gbGVmdDsgdmVy aImjENdfKLkgK354BTZjz MseKhMdfWEnR8jtobVDXC 1lOjwvdGQ+WNRnHNH3vHt dQEtmDIKuvP3s RGZdQ1w7UsWlHjX0KKsiH 0NhdhP4LEFrgTMiOKZkwU GChE8jvqhhv5zznjfpPpK qOIZkQHt0WCy2 CTFoiOlvJoRvHWK3AmK6X IA2uAMdmJ8zqElzztorhB 9wOyc+RklOOjwvdGQ+PHR nTMI3vRorXSjh MXZafP0gKKHmK0u8XrWsQ aO4OZmrI2XsusG8DJKaaC EoMXEdqHDMrH0cqpdia8v vcjogIzAwMDAw NHz2CHd4NLLaiCneKiEnN FM8LpE9WVH5iXVbzE6ywC rpevpbvD9kVdn+TVJOOjw vdGQ+PHRkIHN0 xZlfSBygSQWpbC7wWEUmC 2y5YsDwUoS3PTgrS0Tkpw O2HCTrlMQiYSIflPENdP8 qcyirt9ykkezy ZdOaDLAnFTq7VNa8IAFjf AlvJrMtXDU0YsX8HHB3cF LisK3dlVrgkgjljX0hEqw +PAX5DJJ7FN72 OB07S0EmKytjxOVguTV+P HRhYmxlIHdpZHRoPScxMD FbKiSiwCgjRT4aMc0sXHL yLWNvbGxhcHNl OiB (more content not included)... [facility] Urgent Care Note- Provideron 04-06-2021 [...] and Plan Diagnosis Sprain of left foot (AKM03-TC S93.602A, Discharge, Medical) Plan Condition: Stable. Disposition: [...] she can arrange follow-up as needed. Normal [facility] ED Clinical Summaryon [address] [facility] ? Urgent Care [address] [place] [address] Clinical Summary PERSON INFORMATION Name: LEIGH MONTOYA Age: 20 Years Sex: FEMALE : 2000 MRN: Acct#: Visit Reason: UC - Ankle/Foot/Toe Pain or Swelling; LEFT FOOT PAIN Arrival: 04/05/2021 16:12:07 Discharge: 04/05/2021 17:50:00 LOS: 000 01:38 Check In: 04/05/2021 16:12:07 Checkout: 04/05/2021 17:50:00 Address: [facility] [address] [facility] [id number] PCP: Flex Wang DO PROVIDER INFORMATION Provider Role Assigned Unassigned Monica Dunn CLIENT OPERATIONS MANAGER Nurse 04/05/2021 16:14:32 Paul Atkins PA-C [...] Sprain Follow-Up: With: Address: When: JEFF Bernabe [employer] [address] [place], [place] [id number] Business (1) , only if needed With: Address: When: Flex Wang [address] [facility] [place] [id number] Business (1) Within 3 to 5 days DIAGNOSIS: Sprain of left foot Patient Understands: Yes - Patient/family/caregi nela verbalizes understanding of instructions given Comment: Normal [facility] ED Patient Summaryon [address] [facility] ? Urgent Care [address] [place], [place] [id number] PATIENT DISCHARGE INSTRUCTIONS Patient Information Name: LEIGH MONTOYA Age: 20 Years Date of : 2000 Reason For Visit: UC - Ankle/Foot/Toe Pain or Swelling; LEFT FOOT PAIN Arrival Time: 04/05/2021 16:12:07 Primary Care Physician: Flex Wang DO Attending Physician: Nirav Nunez Comment: Patient Education With: Address: When: JEFF Bernabe Ceon [address] [address] Business (1) , only if needed With: Address: When: Flex Wang [address] [facility], [place] [address] Business (1) Within 3 to [...] ? As (more content not included)... Normal [facility] Recordon [address] [facility] ? Urgent Care [address] [facility]. [place], [place] [id number] PATIENT DISCHARGE INSTRUCTIONS Patient Information Name: LEIGH MONTOYA Age: 20 Years Date of : 2000 Reason For Visit: UC - Ankle/Foot/Toe Pain or Swelling; LEFT FOOT PAIN Arrival Time: 04/05/2021 16:12:07 Primary Care Physician: Flex Wang DO Attending Physician: Nirav Nunez Comment: Visit Diagnosis: Diagnoses This Visit Sprain of left foot (S93.602A) UC - Ankle/Foot/Toe Pain or Swelling ([id number]) If you received any narcotics, sedation, or [...] With: Address: When: JEFF JESUS [address] [address] Business (1) , only if needed With: Address: When: Flex Wang [address] [facility], [place] [address] Business (1) Within 3 to 5 days Medication Information: The exam and treatment you received today in the [facility] were for an urgent problem and are not intended as complete care. It is important for you to follow up with a doctor, nurse practitioner, or physician?s sales support assistant for ongoing care. If your symptoms [...] so we can reach you if necessary. [facility] has provided you with a complete list of medications post discharge. Please inform your business attorney/provider of your visit and for further instruction [...] are no br (more content not included)... [facility] XR Foot Complete Lefton 03-20 [...] Vishal Fernandez 04/06/21 8:27 am Technologist: NELIDA [facility] Coding Summaryon 08-01-2020 Coding Summary HTMLBase 64 MmiwycjjIRw0pTd+PGhlY WQ+DZ5REYBzG93lvSXecV 2JS8uMGZ9NDBGBMAQSOI2 CCJ4ynMF9ILqrJ2DsqcCo UqweaDTeCO61AEl8BCN2q KbgILfcvU0njNCcV7m6Iv PyBF24hN01BDbxMIFoEfL 3LjZpbjsgbWFy N8sdIkOfaIEoRxt+PHRhY mxlIHdpZHRoPScxMDAlJy OztWppKI3tXx0pYKJvOXG vbGxhcHNlOiBj s9irEKHwMKvdQR1xbPfuJ 6VorBR8GANgx3n0Lr55jR I+FTPbLVP2cWpiIFrwx25 5XgEob9hyWLQ6 tJEcASckXYB8C51ox5H5Z RFpVTMxVQL4xFK7rA6qvH mhuioqA4AglVNpFbK1XQS 0aGQeyJ4loUzm njqvpC8hBor+Q51AGM8JL WUSGQ5CSpy7O1HzRatltE I+IO25QJEeUS56xUQgoZX nw8vfoAm5MjIe QPLiHCO1iRseZAjif6TyM PVpP02bdOIvz4R0FQMweX wkeVHpYwRqwTE6nX5bJKv lpkweb5ovodoa Kdeva7jilo89dN73R52hH TlwQCPeWQQ0OCKrDODmuS xcnq5inV4dTz3+YHccz3q uw8vlcMd2WdZi AREjsoHcuMftRNY8y3PuS d58P4NyqWzwz2ZpLmw1ma 62tDKsl1W5iUI7WXjhXTN yaB3jCCebGdV1 BDBkBsNgfQ57xHPrJCakK c0jgCkjmGceQP1mIRIcyy mnUIIcnP3nRFGkpMIcqCl qZP9eFBVbbmru a138FmYrNQA3RVFysWOtW 4IrbG1eFxTaPUPwNSLkF1 QkqRDjSJkxZ545YIgmLeL 8CVLhuzYwZ4Qs KGSxqLfhWhY7y4R2Su4Kg 8FglotvJTT9RQpoKSAtPn Z6LiUdExP3B8VoAdu4BHR zzKswBY3gU4Sn VTKmoseerqpnzBK6XXSwD AChkU75xWRyLMazBb6fo1 V9u982XWWrTSMwsF09Ij4 udDogMTBwdCBU lA1nzymjc9wezollZeMeX YBrXQa4PMk2CYRgiZooHr YyUSI5SjY1RYY0cZBumV3 ezPohbvflqP9e Oyc+K67mtR2iWYE1GOA5o qqfREMnhzOfTG51JH43X8 RyPjwvdGFibGU+PGRpdiB blKwoNV0yNpHw e6zie3DbJHsbQ8OxSJOwQ LqiQud4VCCrKDM8fPN5vW 4pPKHiEVglh6O8uNL9B8Q mahUxlk9uc2eh EXApAUpfZ99rbMHfe6T9Z YYkfVL9ZOCdcPviVlWgcI 93Oyc+WKFhtEcmz2EmDhh rk9ufq9wjsMi3 GfBwOHHjdzUzuEreZBG0c 9VqBt99X55lKAjfIUQfJB PsEHQeAFNtiIlykr4yyH6 wIi8+PGNvbCB3 aNB3tY2pCTUxYlC7XGvbA 210EeNpiTWyEsrlx1wre0 iafAj9CdXaQVYpupEgfTe jAOT6t4LxOt23 J26cKJilLLShEXApROLwA IVzcWpywd6fxU9kVe1+PC 8er3dpft92fJ41qNC+PHR yQSI5mWqxBDaf KOHcaN0yIVtzKrR1OAClU iLniR17zXYcIDemUz6qeG nkfSlvJR5qCVZypzfcs87 0DqEjy9cnHBVn rXUjQDyxKJW4T82ee5T1T QTlZSQeMVG3bBK1sH6gcW lnbjogbGVmdDsgdmVydGl qYDxeFZgxT766 IHRvcDsnPlBhdGllbnQgT vYhKTz5O6NqIru7ROXquC jwUB6dtNFuLXsqEy1ahGh iwBrdNQ1mEFMq hshba143WcFft8njAINxo WEgXNehDKI4K04jn9L4EC FzEIVcFFV7gBH4tP4whRe nbjogbGVmdDsg aeReyMobYGdeXUhiA701F HRvcDsnPkJpcnRoIERhdG E5RH56XA99jSJmt9S1sVB 7N4MpVWHznifl kjbxcBT1DAGhZUNoyA24Q v6kbPhbPl0vJCFaVIF5SU JciIItX5PhlU8iVtHuSIY gWXGkT0BhaNHi QHkoS193OXyoCiT4AKNkw oXwI4ClJCPalRpoQbP8k7 B5Sv4DL2E7SU34AB36sBM pc6Z5sQT7I5Ql ARHrieitifpolEE1OAJfR TYxkE59Tx8igSzpXy2xES FzULY3KRLxaYSkT7IoeK2 yOiAjMDAwMDAw N1KtmLTeHKpbP979OEytU rO2RMChruFlI3OaVLEukS ydWoL2d8U0Vk3MRKu5EC0 7RQ47mAIru7G8 jUB9E0ExHVOawqqluppfs CS7GFUiCGFlcE11Tu5pdX okJu8cKQVaPOR1DCUlsFG nS5WrvA9zTfXc ZLXtSOYzK0LmrSVmDVntQ 108HNnuKtA8SMNzdeLeT9 EuNLRskCqiJeZ8r5P8Fz0 CPTBdBQ99BSF6 jVV5BB26NT14T5BbPrdgq GFibGU+PHRhYmxlIHdpZH RoPScxMDAlJyBzdHlsZT0 wIi3vYUCqZXOd lDqqoILhRwTep0esOUYlB RfkQA3quPuzW6LrkBI3SC Mus2j8Uv59N86dU2VsyMH +DGAwhAA5lIV2 wG5mLyNfKpQ3ELtgY018W vIcmFAzFsmnc7agh4talV l4HiY7CYFennVxtMmkXGT 2s2RzJd83K69o IHdpZHRoPSIxNSUiIHZhb Sovej1hlY3wSr6+PGNvbC B4gQY1xP6hCyIsXbT6BQu hX251SkXinPKg Jfekt7mzd1apdEc7EaJhB ULfggJuvIfzFBW6i0NsSs 76G8LueIgtf6JyFcz7cu5 1wPBzj6V2mQB0 E8AfNBEmxntshCFkjRcsB J4gJBOguvwqJZFoaC9dEZ GgC3x3RfXgDjC7QSiqJ8H lwaK9OSJzxNLz UIswKMU7N15qn8E9FHNbF KZgUAN1vTP5pI1swElbkj ogbGVmdDsgdmVydGljYWw dPUkpJ022QWVu kNpeVAXxhR8rSDEkeVSqr OtoDP2nKVWulrxkYlGDME REWSwgSEFOTkFIIEdSQUN XTW97GQ87rDCs a7U1aZE1S4WoPIPebacji jxxjOP5HRAcTONypE99vZ DmKUpfQz6dy0T9w494AGP gPHIzlE79Nu5k cHiaWTKiuFLHcU1oecwcd 1clficeLdEmALYsBEt7SK e1TGEivRehYbDeKPU9QkB 9GYL9zBHyjT3a oWkvjlffkS4iMlf+MDMvM DkvMjAwMTwvdGQ+PHRkIH W8xEdqYLpoBZEfbI4cSVI nM5u8TzNcSwR3 WFzqI3OnMSTaxtwjCa16y M2eTjTeZvV0DQsuM0Qlee F6RSUpvVUuRRstFWT8O45 ez9Q5XOPsGKNn QHM2mYO6wB9qeGewycuzd GVmdDsgdmVydGljYWwtYW qaI236QDLepKbyJmBtIUn oZNZvLO78WH92 yUAxo0U9tHM4E5PmIUSzw uqqmlljtQP9XRRoQRBqiU 29uROfCIfeOv4qj7H6w84 8OPPyKSFouJ70 If3fpNesFWMgyFGStL6oi hpuu3obshpsUqRkYWFhRK o1FGb4RQVrnQwaRwCvTHS 0BdO2LBH5vQKi vQ6tqTvyzitwhA9rOml+R qZVWUqFFQ50OP23yJVkl3 J8kVP9A9DmBVMdbwxrqis ukTA6CQPzGTUo qZ13kSEoYCmdZh7lx4H6g 254DJKaBBZuoJ05Ec6ntW zaDERkoWVIbZ6xhniya7p vcjogIzAwMDAw VGm0JSj3UZOwkTouTuTxB VM0ChM7XHA3xGBeuE7pnO kgvgnrvY8sJqe+C4M5O1I kPjwvdHI+PC90 XZAgEN76bGJkbTVxj4nkc Un7CfVgTOOqGJI6qVspLT ypu3YkZOAjQ17ctDSze1K 6IGNvbGxhcHNl EuOkeSV5lZ4dGHuvtardx 5rbhposWhufc7ewtt29bU 85E53gUKelZSJfWKLnXVS sCEFjgNrene8z zQ8hXn5+OQIrjNS6pYY7z Z4eKiRoEoZ9DSgnH305Vj UiuNJjThpvd0lis8muiOi 9IjIwJSIgdmFs yRgrKIO8r1MpDn65S07uS HdpZHRoPSIyMCUiIHZhbG zukg8ywG9rNs2+MQ2zc0x tne44mT49wYZ+ PKUqWUL5oIvxLYfxZSBwt Q6rHCjmRaR0CVYdYyGwyZ 55qWMmRYqoJb2vfOnprFv rCU5bVJAuyxvd s211NbVfx1xyGXWbaOEqV EugBYC7D95xm9M7KQTrHK SoVLA3bCG9jH6emVktgsc gbGVmdDsgdmVy rJpyBLjvEKsiB909NCLab LjsGqOeqCYoT9ujjxUINH 1lOjwvdGQ+WVRgODQ8fBl bELthXSLoqE2g WUWnV4o7PzTqYiG5BHcmJ 6ZbtpL3OBDtiJFxLRCwyV EUoO0bdbdga0yrixmaUlV zWJYtNQi2KEx5 XXXuwGbyOnQqZFX5WcL2H TO6kZTwsM7itDmxlicenQ 9wOyc+RklOOjwvdGQ+PHR eKJL6sOzzEFdr MFJgtK9sOQJwZ1p9NxQmG vC5TVsmK2XkzvN5PBDrjZ KaCICviRRKgN3toutsv3h vcjogIzAwMDAw BPr1IEa2ZIIdyXdmVkMqO UC9MkC7GEG4tJDcxR5xmU ogzgbnzK8eKyo+TVJOOjw vdGQ+PHRkIHN0 cLfrZPvzPBNxfD7iUJIiH 5z1LxNwRhQ9PMunG8Nxpp D0HSHinUFpNSOzpBHZoF8 synvew6zchlgm PeKtTOMfHLn2OHd0TTMba ChpOxHqROB3RuJ2KES7oJ OguC5ndClaxjbipV5uKjb +HZC3HHT3CI70 AC35Y9UsMfsiwYEquPD+P HRhYmxlIHdpZHRoPScxMD PwToEisZzoTW3oWv1vHCT yLWNvbGxhcHNl OiB (more content not included)... Normal [facility] C Throaton 07-31-2020 C Throat Ordered by Discern. Normal throat regi isolated No pathogens isolated Normal [facility] Comment on above: Performed By: #### [id number] ####[facility] (DEFAULT)[address] [place] [address] ED Clinical Summaryon [address] [facility] ? Urgent Care [address] [place] [address] Clinical Summary PERSON INFORMATION Name: LEIGH MONTOYA Age: 20 Years Sex: FEMALE : 2000 MRN: Acct#: Visit Reason: UC - Sore Throat; THROAT PAIN Arrival: 07/29/2020 09:44:22 Discharge: 07/29/2020 10:23:00 LOS: 000 00:39 Check In: 07/29/2020 09:44:22 Checkout: 07/29/2020 10:23:00 Address: [address] [place] [address] PCP: Flex Wang DO PROVIDER INFORMATION Provider [...] Negative . Impression and Plan Diagnosis Pharyngitis ([id number] J02.9, Discharge, Medical) Plan Condition: Stable. Disposition: Discharged: Time 07/29/2020 10:17:00 (more content not included)... Normal [facility] ED Note - Provideron 021 ED [...] Negative . Impression and Plan Diagnosis Pharyngitis ([id number] J02.9, Discharge, Medical) Plan Condition: Stable. Disposition: Discharged: Time 07/29/2020 10:17:00, to home. Patient was given the following educational materials: Pharyngitis, Jzbz-uu-Ednt, Pharyngitis, Psfq-uh-Xkod. Follow up with: Flex Wang Within 2 [...] on: 07/29/2020 10:20 EST] Patricia Meeks PA-C [facility] ED Patient Summaryon [address] [facility] ? Urgent Care [address] [place] [id number] PATIENT DISCHARGE INSTRUCTIONS Patient Information Name: LEIGH MONTOYA Age: 20 Years Date of : 2000 Reason For Visit: UC - Sore Throat; THROAT PAIN Arrival Time: 07/29/2020 09:44:22 Primary Care Physician: Flex Wang DO Attending Physician: Patricia Meeks PA-C Comment: Patient Education With: Address: When: Flex Wang [address] [facility], [address] [place] [id number] Business (1) Within 2 to 4 days [...] Follow these instructions at home: ? Take qfxo-wpl-fzowiae and prescription medicines only as told by [...] 10/22/2008 Document Revised: 04/18/2018 Document Reviewed: 06/11/2017 [employer] Patient Education ? 2020 [employer]. Medication Information: The exam and treatment you received today in the [facility] Emergency Department were for an urgent problem and are not intended as complete care. It is important for you to follow up with a doctor, nurse practitioner, or physician?s sales support assistant for ongoing care. If your symptoms [...] so we can reach you if necessary. [facility] Emergency Department has provided you with a complete list of medications post discharge. Please inform your business attorney/provider of your visit and for further instruction [...] Throat (C11 (more content not included)... Normal [facility] Strep Aon 07-29-2020 Strep procedure control Pass Normal [facility] Comment on above: Performed By: #### [id number] ####[facility] (DEFAULT)[address] [place] [id number] Streptococcus A Negative Normal Negative [facility] Comment on above: Performed By: #### [id number] ####[facility] (DEFAULT)[address] [place] [id number] Urgent Care [facility] [address] [facility] ? Urgent Care [address] [place] [address] PATIENT DISCHARGE INSTRUCTIONS Patient Information Name: LEIGH MONTOYA Age: 20 Years Date of : 2000 Reason For Visit: UC - Sore Throat; THROAT PAIN Arrival Time: 07/29/2020 09:44:22 Primary Care Physician: Flex Wang DO Attending Physician: Patricia Meeks PA-C Comment: Visit Diagnosis: Diagnoses This Visit Pharyngitis (J02.9) UC - Sore Throat ([id number]) If you received any narcotics, sedation, or [...] With: Address: When: Flex Wang [address] [facility], [address] [place] [id number] Business (1) Within 2 to 4 days [...] and treatment you received today in the [facility] were for an urgent problem and are not intended as complete care. It is important for you to follow up with a doctor, nurse practitioner, or physician?s sales support assistant for ongoing care. If your symptoms [...] so we can reach you if necessary. [facility] has provided you with a complete list of medications post discharge. Please inform your business attorney/provider of your visit and for further instruction [...] Follow these instructions at home: ? Take qufm-ahx-iivlnyh and prescription medicines only as told by [...] help righ (more content not included)... Normal [facility] Coding Summaryon 06-27-2020 Coding Summary CODING DATE: 06/27/[address] [facility] STATUS: Home PAYOR: Commercial Insurance [...] Nano Padilla Date Saved: 06/27/2020 12:37 pm [facility] ED Clinical Summaryon [address] [facility] ? Urgent Care [address] [place] [address] Clinical Summary PERSON INFORMATION Name: LEIGH MONTOYA Age: 19 Years Sex: FEMALE : 2000 MRN: Acct#: Visit Reason: UC - Ear Pain; UC - Ear Pain; RIGHT EAR PAIN Arrival: 06/18/2020 15:00:59 Discharge: 06/18/2020 15:27:00 LOS: 000 00:27 Check In: 06/18/2020 15:00:59 Checkout: 06/18/2020 15:27:00 Address: [address] [place] [address] PCP: Flex Wang DO PROVIDER INFORMATION Provider Role Assigned Unassigned Monica Dunn CLIENT OPERATIONS MANAGER Nurse 06/18/2020 15:03:15 Marv Shannon ED PA 06/18/2020 15:03:24 VITALS INFORMATION Vital Sign Triage Latest Temperature Tympanic Temperature Temporal Artery Pulse Rate O2 Sat 98 % 98 % Respiratory Rate Blood Pressure /78 mmHg /78 mmHg MEDICAL INFORMATION Medications Given: Allergy Information: sulfamethoxazole; ibuprofen PHYSICIAN DOCUMENTATION DISCHARGE INFORMATION: Discharge Disposition: Home Discharge Location: Home PATIENT EDUCATION INFORMATION Instructions: Otitis Media, Adult, Vsko-ro-Cqgz Follow-Up: With: Address: When: Flex Wang [address] [facility], [place] [address] Business (1) Comments: Begin on the amoxicillin-clavulana te antibiotic take every 12 hours for the next 10 days Follow-up with your primary care physician in 3-5 days for reevaluation, sooner if any worsening symptoms DIAGNOSIS: Otitis media, right Patient Understands: Yes - Patient/family/caregi nela verbalizes understanding of instructions given Comment: [facility] ED Patient Summaryon [address] [facility] ? Urgent Care [address] [place] [address] PATIENT DISCHARGE INSTRUCTIONS Patient Information Name: LEIGH MONTOYA Age: 19 Years Date of : 2000 Reason For Visit: UC - Ear Pain; UC - Ear Pain; RIGHT EAR PAIN Arrival Time: 06/18/2020 15:00:59 Primary Care Physician: Flex Wang DO Attending Physician: Marv Shannon Comment: Patient Education With: Address: When: Flex Wang [address] [facility], [address] [place] [phone] Business (1) Comments: Begin on the amoxicillin-clavulana [...] Follow these instructions at home: ? Take cwyd-swd-nnbzauf and prescription medicines only as told by [...] 10/22/2008 Document Revised: 04/18/2018 Document Reviewed: 05/27/2017 [employer] Patient Education ? 2019 [employer]. Medication Information: The exam and treatment you received today in the [facility] Emergency Department were for an urgent problem and are not intended as complete care. It is important for you to follow up with a doctor, nurse practitioner, or physician?s sales support assistant for ongoing care. If your symptoms [...] so we can reach you if necessary. [facility] has provided you with a complete list of medications post discharge. Please inform your business attorney/provider of your visit and for further instruction on these medications. Any specific questions regarding your chronic medications and dosages should be discussed with your primary care physician(s) and/or pharmacist. [facility], [address] [place] [id number], [phone] amoxicillin-clavulana te (Augmentin 500 mg-125 mg oral [...] media, right (H66.91) UC - Ear Pain ([id number]) UC - Ear Pain ([id number]) If you received any narcotics, sedation, or any other medication that causes drowsiness for the next 24 hours, unless otherwise directed: ? Do not drive a car. ? Do not operate machinery such as power tools, lawn mowers, drills, sewing machines, or stoves ? Avoid alcoholic beverages and drugs for allergies, n (more content not included)... Normal [facility] Note- Provideron 06-18-2020 Urgent [...] Impression and Plan Diagnosis Otitis media, right (BVV01-QF H66.91, Discharge, Medical) Plan Prescriptions: [facility] Pharmacy: Augmentin 500 mg-125 mg oral tablet (Prescribe): 1 tab(s), PO, q12hr, for 10 day(s), 20 tab(s), 0 Refill(s). Patient was given the following educational materials: Otitis Media, Adult, Vpof-lg-Wpja. Follow up with: Flex Wang Begin on the amoxicillin-clavulana te antibiotic take every 12 hours for the next 10 days Follow-up with your primary care physician in 3-5 days for reevaluation, sooner if any worsening symptoms. Counseled: Patient, Regarding diagnosis, Regarding diagnostic results, Regarding treatment plan, Regarding prescription, Patient indicated understanding of instructions. Normal [facility] [address] [facility] ? Urgent Care [address] [place] [id number] PATIENT DISCHARGE INSTRUCTIONS Patient Information Name: LEIGH MONTOYA Age: 19 Years Date of : 2000 Reason For Visit: UC - Ear Pain; UC - Ear Pain; RIGHT EAR PAIN Arrival Time: 06/18/2020 15:00:59 Primary Care Physician: Flex Wang DO Attending Physician: Marv Shannon Comment: Visit Diagnosis: Diagnoses This Visit Otitis media, right (H66.91) UC - Ear Pain ([id number]) UC - Ear Pain ([id number]) If you received any narcotics, sedation, or [...] With: Address: When: Flex Wang [address] [facility] [place] [address] [place] [address] Business (1) Comments: Begin on the amoxicillin-clavulana te antibiotic take every 12 hours for the next 10 days Follow-up with your primary care physician in 3-5 days for reevaluation, sooner if any worsening symptoms Medication Information: The exam and treatment you received today in the [facility] were for an urgent problem and are not intended as complete care. It is important for you to follow up with a doctor, nurse practitioner, or physician?s sales support assistant for ongoing care. If your symptoms [...] so we can reach you if necessary. [facility] has provided you with a complete list of medications post discharge. Please inform your business attorney/provider of your visit and for further instruction on these medications. Any specific questions regarding your chronic medications and dosages should be discussed with your primary care physician(s) and/or pharmacist. [facility], [address] [place], [place] [id number], [phone] amoxicillin-clavulana te (Augmentin 500 mg-125 mg oral [...] Follow these instructions at home: ? Take uwbo-ihl-hsysyjs and prescription medicines only as told by [...] (paralyzed). ? You (more content not included)... [facility] Consent Formson 04-28-2020 Consent Forms [id number] [facility]-28-2020 Provider Orders [id number] .00[facility] Coding Summaryon 04-25-2020 Coding Summary CODING DATE: 04/25/[address] [facility] STATUS: Home PAYOR: Commercial Insurance [...] Nano Padilla Date Saved: 04/25/2020 02:38 pm [facility] .QC Respiratory Panel 2.1 (B ioFire)on 04-22-2020 Internal Control-Resp Panel 2.1(BioFire) Pass [facility] Comment on above: Order Comment: Order ed by Holley.[[id number]] Performed By: #### 6 [id number], [id number] ####[facility] (DEFAULT)[address] [place] [address] Respiratory Panel 2.1 (BioFi re)on 04-22-2020 Adenovirus -BioFire Not detected Normal Not Detected [facility] Comment on above: Performed By: #### 6 [id number], [id number] ####[facility] (DEFAULT)[address] [place] [address] Bordetella parapertussis -BioFire Not detected Normal Not Detected [facility] Comment on above: Performed By: #### 6 [id number], [id number] ####[facility] (DEFAULT)[address] [place] [address] Bordetella pertussis -BioFire Not detected Normal Not Detected [facility] Comment on above: Performed By: #### 6 [id number], [id number] ####[facility] (DEFAULT)[address] [place] [address] Chlamydia pneumoniae -BioFire Not detected Normal Not Detected [facility] Comment on above: Performed By: #### 6 [id number], [id number] ####[facility] (DEFAULT)[address] [place] [address] Coronavirus 229E (Not COVID-19) -BioFire Not detected Normal Not Detected [facility] Comment on above: Performed By: #### 6 [id number], [id number] ####[facility] (DEFAULT)[address] [place] [address] Coronavirus HKU1 (Not COVID-19) -BioFire Not detected Normal Not Detected [facility] Comment on above: Performed By: #### 6 [id number], [id number] ####[facility] (DEFAULT)[address] [place] [address] Coronavirus NL63 (Not COVID-19) -BioFire Not detected Normal Not Detected [facility] Comment on above: Performed By: #### 6 [id number], [id number] ####[facility] (DEFAULT)[address] [place] [address] Coronavirus OC43 (Not COVID-19) -BioFire Not detected Normal Not Detected [facility] Comment on above: Performed By: #### 6 [id number], [id number] ####[facility] (DEFAULT)[address] [place] [address] Employed in healthcare? No Invalid Interpretation Code [facility] Comment on above: Performed By: #### 6 [id number], [id number] ####[facility] (DEFAULT)[address] [place] [address] Group care resident? No Invalid Interpretation Code [facility] Comment on above: Performed By: #### 6 [id number], [id number] ####[facility] (DEFAULT)[address] [place] [address] Human Metapneumovirus -BioFire Not detected Normal Not Detected [facility] Comment on above: Performed By: #### 6 [id number], [id number] ####[facility] (DEFAULT)[address] [place] [address] Human Rhinovirus/Enterovir us -BioFire Not detected Normal Not Detected [facility] Comment on above: Performed By: #### 6 [id number], [id number] ####[facility] (DEFAULT)[address] [place] [address] In ICU? No Invalid Interpretation Code [facility] Comment on above: Performed By: #### 6 [id number], [id number] ####[facility] (DEFAULT)[address] [place] [address] Influenza A (no subtype) -BioFire Not detected Normal Not Detected [facility] Comment on above: Performed By: #### 6 [id number], [id number] ####[facility] (DEFAULT)[address] [place] [address] Influenza A -BioFire Not detected Normal Not Detected [facility] Comment on above: Performed By: #### 6 [id number], [id number] ####[facility] (DEFAULT)[address] [place] [address] Influenza A H1 -BioFire Not detected Normal Not Detected [facility] Comment on above: Performed By: #### 6 [id number], [id number] ####[facility] (DEFAULT)[address] [place] [address] Influenza A H1-2009 -BioFire Not detected Normal Not Detected [facility] Comment on above: Performed By: #### 6 [id number], [id number] ####[facility] (DEFAULT)[address] [place] [address] Influenza A H3 -BioFire Not detected Normal Not Detected [facility] Comment on above: Performed By: #### 6 [id number], [id number] ####[facility] (DEFAULT)[address] [place] [address] Influenza B -BioFire Not detected Normal Not Detected [facility] Comment on above: Performed By: #### 6 [id number], [id number] ####[facility] (DEFAULT)[address] [place] [address] Mycoplasma pneumoniae -BioFire Not detected Normal Not Detected [facility] Comment on above: Performed By: #### 6 [id number], [id number] ####[facility] (DEFAULT)[address] [place] [address] Parainfluenza Virus 1 -BioFire Not detected Normal Not Detected [facility] Comment on above: Performed By: #### 6 [id number], [id number] ####[facility] (DEFAULT)[address] [place] [address] Parainfluenza Virus 2 -BioFire Not detected Normal Not Detected [facility] Comment on above: Performed By: #### 6 [id number], [id number] ####[facility] (DEFAULT)[address] [place] [address] Parainfluenza Virus 3 -BioFire Not detected Normal Not Detected [facility] Comment on above: Performed By: #### 6 [id number], [id number] ####[facility] (DEFAULT)[address] [place] [address] Parainfluenza Virus 4 -BioFire Not detected Normal Not Detected [facility] Comment on above: Performed By: #### 6 [id number], [id number] ####[facility] (DEFAULT)[address] [place] [address] status? Not Invalid Interpretation Code [facility] Comment on above: Performed By: #### 6 [id number], [id number] ####[facility] (DEFAULT)[address] [place] [address] Respiratory Syncytial Virus -BioFire Not detected Normal Not Detected [facility] Comment on above: Performed By: #### 6 [id number], [id number] ####[facility] (DEFAULT)[address] [place] [address] SARS-CoV-2 (COVID-19) RNA OZZIE+probe Ql (Unsp spec) Not detected Normal Not Detected [facility] Comment on above: Performed By: #### 6 [id number], [id number] ####[facility] (DEFAULT)[address] [place] [address] SARS-CoV-2 (COVID-19) RNA OZZIE+probe Ql (Unsp spec) No Invalid Interpretation Code [facility] Comment on above: Performed By: #### 6 [id number], [id number] ####[facility] (DEFAULT)[address] [place] [address] Symptomatic as defined by CDC? No Invalid Interpretation Code [facility] Comment on above: Performed By: #### 6 [id number], [id number] ####[facility] (DEFAULT)[address] [place] [address] Vital Signs Date Time Vital Sign Value Performing Clinician Facility 12-06-2021 16:30-0400 Body height 160.02 cm Ezequiel Melo Other [facility] Other 12-06-2021 16:30-0400 Body mass index (BMI) [Ratio] 41.62 kg/m2 Ezequiel Melo Other [facility] Other 12-06-2021 16:30-0400 Body weight 106.6 kg Ezequiel Melo Other [facility] Other 10-11-2021 14:45-0400 Body height 160.02 cm Ezequiel Melo Other [facility] Other 10-11-2021 14:45-0400 Body mass index (BMI) [Ratio] 41.98 kg/m2 Ezequiel Melo Other [facility] Other 10-11-2021 14:45-0400 Body weight 107.5 kg Ezequiel Melo Other [facility] Other 10-11-2021 14:45-0400 Diastolic blood pressure 79 mm[Hg] Ezequiel Melo Other [facility] Other 10-11-2021 14:45-0400 Systolic blood pressure 128 mm[Hg] Ezequiel Melo Other [facility] Other Encounters Encounter Date Encounter Type Care [...] 12-06-2021 End: 12-06-2021 ambulatory Ezequiel Melo Other [facility] Other Start: 12-06-2021 Patient encounter procedure Ezequiel Melo [facility] Start: 10-11-2021 End: 10-11-2021 ambulatory Ezequiel Melo Other [facility] Other Start: 10-11-2021 FQ visit new patient Ezequiel Melo [facility] Payers Date Payer Category Payer Unknown [id number] 2000 Unknown [id number] 2.16.84 [id number] 2000 Unknown [id number] 2.16.84 [id number] 2000 Unknown [id number] 2.16.84 [id number] 2000 Unknown [id number] 2.16.84 [id number] 2000 Unknown [id number] 2.16.84 [id number] 2000 Unknown [id number] 2.16.84 [id number] 2000 Unknown [id number] 2.16.84 [id number] 2000 Unknown [id number] 2.16.84 [id number] 1959 Unknown [id number] Medicaid [id number] 2. [id number] Social History Date Type Detail Facility Sex Assigned At [facility] Other Evaluation note 12-06-2021 Note Date & Type Note Facility 12-06-2021 Evaluation note Encounter Date Diagnosis Assessment Notes Nov, Dyspepsia (ICD-10 - K30) patient states does have some bloating in the left center she does have pain noted. patient is advised that we can start levsin and refer to cylinder inspector for food testing. [facility] Other Evaluation note 05-25-2022 Note Date & Type Note Facility 10-11-2021 Evaluation note Encounter Date Diagnosis Assessment Notes September, Bloating (ICD-10 - R14.0) September, Dyspepsia (ICD-10 - K30) September, Abdominal pain (ICD-10 - R10.9) [facility] Other Clinical Note 04-05-2021 Note Date & [...] This may take several hours. ? Take bunu-elq-evnbbmg and prescription medicines only as told by your health care provider. ? When you can walk without pain, wear supportive shoes that have stiff soles. Do not wear flip-flops, and do not walk barefoot. ? Keep all follow-up visits as told by your health care provider. This is important. Contact a health care provide (more content not included)... [facility] Clinical Note 07-29-2020 Note Date & Type Note Facility 07-29-2020 Note Patient Education Ma terials Follows:Disease Pharyngitis Pharyngitis is a sore throat (pharynx). This is when there is redness, pain, and swelling in your throat. Most of the time, this condition gets better on its own. In some cases, you may need medicine. Follow these instructions at home: ? Take ywrt-tui-smljxxu and prescription medicines only as told by [...] 10/22/2008 Document Revised: 04/18/2018 Document Reviewed: 06/11/2017 [employer] Patient Education ? [address] [employer] [facility] Clinical Note 06-18-2020 Note Date & Type Note Facility 06-18-2020 Note Patient Education Ma terials Follows: Otitis Media, Adult Otitis media means that the middle ear is red and swollen (inflamed) and full of fluid. The condition usually goes away on its own. Follow these instructions at home: ? Take ftpd-lqy-glruqoq and prescription medicines only as told by [...] 10/22/2008 Document Revised: 04/18/2018 Document Reviewed: 05/27/2017 [employer] Patient Education ? 2019 [facility] [facility]. [facility] Clinical Note 04-22-2020 Note Date & Type Note Facility 04-22-2020 Note Nasal swab performed without complication. Patient tolerated well. Education given. Patient verbalized understanding. [Electronically Signed on: 04/22/2020 15:05 EST] Miri Nuñez RN [Verified on: 04/22/2020 15:05 EST] Miri Nuñez RN [facility] History general Narrative - Reported Note Date & Type Note Facility History general Narrative - Reported Type Medical History PCOS Medical History Endometriosis Surgical History laparoscopy - endometriosis [facility] Other Reason for referral (narrative) Note Date [...] is able to get in before this. [facility] Other Reason for visit Narrative Note Date & Type Note Facility Reason for visit Narrative PATIENT HERE AT THE REQUEST OF DR. VERGARA FOR EVALUATION & TREATMENT OF BLOATING [facility] Other Reason for visit Narrative Note Date [...] of the side effects that were listed. [facility] Other Summary Purpose Family History No Family History Records FoundNo Family History Records FoundNo Family History Records FoundNo Family History Records Found Advance Directives No Advanced Directives Records FoundNo Advanced Directives Records FoundNo Advanced Directives Records FoundNo Advanced Directives Records Found Additional Source Comments INFORMATION SOURCE (unrecogn ized section and content) DATE CREATED AUTHOR 04/21/2021 [facility] DATE CREATED AUTHOR AUTHOR'S ORGANIZ ATION 11/08/2021 [facility] DATE CREATED AUTHOR AUTHOR'S ORGANIZ ATION 09/06/2022 [facility] DATE CREATED AUTHOR AUTHOR'S ORGANIZ ATION 01/04/2024 [facility] dical Specialists [facility] FOR RECORDS PERTAINING TO PATIENTS WHO [...] BE BASED ON THE PRIMARY CLINICAL RECORDS. [employer] provides no warranty or guarantee of the accuracy or completeness of information in this document.
[2024-01-27 18:07] VITALS: BP 129/73; PULSE 80
== END 2024-01-27 18:31 | disposition home or self-care (01) ==
LOC: FBCO 07:08 → FBC 17:49
PROVIDERS: Visit Provider Obstetrics & Gynecology
DX: O36.63X0 Maternal care for excessive fetal growth, third trimester, not applicable or unspecified (principal)
CPT/HCPCS: 59025

== ENCOUNTER 2024-01-30 07:08 | Outpatient (OUT) | payer OTHER, SELFPAY ==
--- OUTSIDE RECORDS SUMMARY | 2024-01-30 07:11 | XMS_ITS | CCD ---
Author Organization [facility] Care Team Providers Care Rotary Filter Operator Name Role Phone Ezequiel Melo Unavailable [facility], DR MIRANDA Primary Care Unavailable JAI ., DR UNDERWOOD Admitting Unavailable JAI ., DR UNDERWOOD Consulting Unavailable JAI ., DR UNDERWOOD Attending Unavailable [facility], DR MIR[facility]DA Primary Care Unavailable JAI ., DR UNDERWOOD Admitting Unavailable JAI ., DR UNDERWOOD Consulting Unavailable JAI ., DR UNDERWOOD Attending Unavailable YASMINE VERGARA Attending Unavailable YASMINE VERGARA Attending Unavailable YASMINE VERGARA Attending Unavailable MIRIAM HAWLEY Attending Unavailable YASMINE VERGARA Attending Unavailable Allergies Allergy Classification Reported Allergen(s) Allergy Type Date of Onset Reaction(s) Facility (2 sources) [facility]ulf[facility] Other (1 source) Sulfonamides (Antibiotic) Drug allergy (disorder) [facility] Repository Medications Current Medications Medication Drug Class(es) [...] to 29on 09-06-2022 . . Normal [facility] Comment on above: Performed By: #### 4 [id number] #### [facility] [address] [place] [address] Dr. Dat Wesley Age Gdln ACOG Testing 21-29 Normal [facility] Comment on above: Performed By: #### 4 [id number] #### [facility] [address] [place] [address] Dr. Dat Wesley DIAGNOSIS: Comment Normal [facility] Comment on above: Result Comment: NEGA TIVE FOR INTRAEPITHELIAL LESION OR MALIGNANCY. Performed By: #### 4 [id number] #### [facility] [address] [place] [address] Dr. Dat Wesley Methodology: Comment [facility] Comment on above: Result Comment: This liquid based ThinPrep(R) pap test was screened with the use of an image guided system. Performed By: #### 4 [id number] #### [facility] [address] [place] [address] Dr. Dat Wesley Note: Comment [facility] Comment on above: Result Comment: The Pap smear is a screening test designed to aid in the detection of premalignant and malignant conditions of the uterine cervix. It is not a diagnostic procedure and should not be used as the sole means of detecting cervical cancer. Both false-positive and false-negative reports do occur. . Performed By: #### 4 [id number] #### [facility] [address] [place] [address] Dr. Dat Wesley Performed by: Comment Normal [facility] Comment on above: Result Comment: Singh Sanders Scanning Manager (ASCP) Performed By: #### 4 [id number] #### [facility] [address] [place] [address] Dr. Dat Wesley Reflex Criteria: Comment [facility] Comment on above: Result Comment: The HPV DNA reflex criteria were not met with this specimen result therefore, no HPV testing was performed. . Performed By: #### 4 [id number] #### [facility] [address] [place] [address] Dr. Dat Wesley Specimen adequacy: Comment Normal [facility] Comment on above: Result Comment: Sati sfactory for evaluation. Endocervical and/or squamous metaplastic cells (endocervical component) are present. Performed By: #### 4 [id number] #### [facility] [address] [place] [address] Dr. Dat Wesley HCG,Urineon 11-03-2021 Beta HCG ( test) Ql (U) Negative Normal [facility] Comment on above: Result Comment: PERF ORMED BY: [address] [place] [id number] PATHOLOGIST PLASTICATOR SULTANA PETE M.D. Performed By: #### U HCG #### [place] [id number] [facility] Charles 11-03-2021 L - -------- Specimen: [id number] Received: 11/03/21 Status: AYDIN Alex Num: [id number] Spec Type: Surgical Subm Dr: Ezequiel Melo MD Tissues: A Small Intestine - Biopsy/Polyp (SMALL BOWEL) Procedures: HE Stain/2, Gross/Micro L4 -------- Patient Age/Sex Location Account Attending Physician -------- Leigh Singh [id number] Ezequiel Melo MD -------- SPEC NUM: [id number] RECD: 11/03/21 STATUS: AYDIN JOHNSON NUM: [id number] PAPI: 11/03/21 [facility] DR: Ezequiel Melo MD ENTERED: 11/03/21 [facility] DR: SPEC TYPE: Surgical DEPT: S [...] is performed. This case is interpreted at [facility], [place], [place] -------- Specimen: Received: 11/03/21 Status: RAFAELChino Johnson Num: [id number] Spec Type: Surgical Subm Dr: Ezequiel Melo MD Tissues: A Small Intestine - Biopsy/Polyp (SMALL BOWEL) Procedures: HE Stain/2, Gross/Micro L4 -------- Patient: Leigh Singh [id number] (Continued) -------- Specimen: [id number] Received: 11/03/21 (Continued) Signed (signature on file) Gabe Ellis MD 11/06/21 1703 -------- Specimen: [id number] Received: 11/03/21 Status: RAFAELChino Johnson Num: [id number] Spec Type: Surgical Subm Dr: Ezequiel Melo MD Tissues: A Small Intestine - Biopsy/Polyp (SMALL BOWEL) Procedures: HE Stain/2, Gross/Micro L4 -------- Patient: Leigh Singh [id number] (Continued) -------- Specimen: Received: 11/03/21 (Continued) CPT Codes 81075 -------- -------- Specimen: Received: 11/03/21 Status: AYDIN Johnson Num: [id number] Spec Type: Surgical Subm Dr: Ezequiel Melo MD Tissues: A Small Intestine - Biopsy/Polyp (SMALL BOWEL) Procedures: MARIANN Stain/2, Gross/Micro L4 -------- Patient: FranciscoLeigh Craig [id number] (Continued) -------- Signed (signature on file) Gabe Ellis MD 11/06/21 1703 Normal [facility] SARS-CoV-2 (COVID-19) RNA OZZIE+probe Ql (Unsp spec) Negative Normal Negative [facility] Comment on above: Order Comment: Healt hcare Worker?: N Result Comment: Testing for SARS-CoV-2 by RT-PCR This test was developed and its performance characteristics determined by [employer]) and validated at the [facility]. This test has not been FDA [...] is terminated or revoked sooner. PERFORMED BY: [address] [place] [address] PATHOLOGIST PLASTICATOR SULTANA PETE M.D. Performed By: #### C OVID 19 [facility] #### [address] Coding Summaryon 04-19-2021 Coding Summary HTMLBase 64 FmkthfxqLKd6lLl+PGhlY WQ+OU8EHUJbE67kcWJxyJ 5YE2oNRG6TEUZWBAYUXQ5 HDS4rfFK4UKadH7HlhvWc RnzwbHMjBH08NOq6CRX8k LkwMZjsnS2ugQJkJ1w1Yq JoTT62oQ57COdlMWFpFqJ 3LjZpbjsgbWFy N5flNpFjjRWgNml+PHRhY mxlIHdpZHRoPScxMDAlJy CffFspJM5kQr8eJJHgHVB vbGxhcHNlOiBj j5byAINwJSnwNL3qxFyhT 6EzkXG7SPAmu0w5Oh38pM I+KLMtDHU9hAllYMfaf72 1CrHjz7fdMFT7 cCLxOByuZMN0K23an9C4F DZcVQAdPDY5dGI8fQ4sdC ikkjvmM5DboNMkLqB1VOA 7uWGckJ6hjAuy srnxtN9gAmz+R54PVZ4AT ULOQP5ESyl0Z4OlDuuxfA I+ZY86QXEcDC72mAXieCK oc6bueFk3EdLm EVBuXAE5fKaxJCqkm8LvT KOlI44ygQAav2L4EKWtyO lkdUOeWvAcoPH1qV4yBId zjavzp5thmzun Kjlao9ywkc44cJ02W99xP JknRGAkUJH8CKZpMIPyqC qpxr7wxA8iBc9+PHyzn7d vk5klgBk1DaUt QDRdxsQymCcxUKJ6i9PlK q24V0MwtBgpy4HlCsb1zw 17cXKkx5E7mKH1FSwuPXN jtM0xHOfmGdC0 HEJsOkMmvD45xVXrMTirD s0dyQvghQoyVA3vEFQzrg tbZAZjdH7yPNRswCIvaGm tQC7zTBPsofnp n784KsKbKWT8GFDnnCHqS 5PbiU1pOqLrTIChBLMvG5 RsiUCfGOejP618CRaaXmG 1ZIYyruCgJ2Sb AQInxJedXlU7z0J3Pf2Gd 1VsbtvlXDE0DIclDPJjRg ZxIcBkVjP2R2TtJfj9HAX ktXgnHP7oJ0Av PRUqknctdecctTI5XFGtZ CYydE56qBOaHEdeEg4kq8 I4f180DLOxIVDjuI65Rh5 udDogMTBwdCBU kP3raxfoy9miihwwEcZrO OIpAYe4RXj9IGPigDyeUg ArCTI7VvS8VRQ3sBCwrJ3 cgObwzymqkP7h Oyc+L71obO3gOEU5KVX0o amhPVWcjaIiHE29ZW43C8 RyPjwvdGFibGU+PGRpdiB xrLmmDF8jMlNe l9jnh6YzXIxeW2UvMQHrK TcoDmi8IWIsZIZ6dKV1qM 1iCTDjWNehl0C3dNF0H3Y mciBtoh3fw4lk TWYlWRmoT43baAIgk9J7L XNtkGR4BIEjxXmeCfBuvK 93Oyc+SDCzuVpwi0HvRfc sn7pym6gvgAc4 DyPhRXBeayMxkBgkQJB1p 4RqWs83J83dLYxdKRXuMK ZaHXJkJLScnLcvsl5spR6 wIi8+PGNvbCB3 cZQ2gX2lVSJoLbK8RKprS 676BpAxbVJvKcaec3dle4 jazUq5NdBxZMGuujTvgLe uPHR7f1KrYm53 W01dCNpcYDVbOALwWRYyO YAocAvozg4zjB9dId7+PC 2pr8ctaj61hY45iVF+PHR qEVQ2qOiwBMvh TVEuaJ8jRKzePsX3POUcM rFwoM04rLPhBFdsOo0jcL ponXmsAP6oWVVlobwjr86 6FoJmi5xmPLXa yYSmWSzcWPV1U62hn6J6E TQvNGJvEFL1nQF4nX6jtP lnbjogbGVmdDsgdmVydGl pGJahNQnaK245 IHRvcDsnPlBhdGllbnQgT uRqYIt8P5LzAri1BTGizM qbXU3jtYXrCHhhYu6gvUd iqHrlKZ9gLSZf amesv166BaEpj2emINYya GZeLIjkMTO5Q20rt8P6JY IlKGPmHPW1mZQ3jV2ltHf nbjogbGVmdDsg doTwbPdqRUccWCkhG347N HRvcDsnPkJpcnRoIERhdG H0YQ62IC94lXQda3U3yPD 1M2KtNCKbgyyj vemekEF8UBJgVIUjeP53U a9seJjxEy8kYGNhNAD1OX SenAIzQ5CmnW7bZzRjRCV uVMWkI4OotXXp GVxjH050TXcgPbO5LPClr wUwZ9WkLQYkpJbkTyF3s2 Q4Xv0XO0K3UT14BQ68cPE gt9T1aHQ9S3Iu QSEnlpjxunwczLO9BTGiQ TSqaE32Ah4qjOwyLw2tAX RkLQN1TRJduBWhV4QljZ8 yOiAjMDAwMDAw J5CgvGDlXCdvG121CUwlG pG9JLSysePeB2ExDHTaiK qrLfD0t0N7Bw4TMCy3DD2 0IK63mHYcu0C2 nJX5I8FiCMYofirhyaqxv JV2IJWbSAEinT66Ut5utM crFs1jJUZaUNI4VSQzoZT sL2HwhY3yRyHp JLGlLPPwY1HutAHrHUmzH 267FOezSiS7YOHdbcEwR2 WtXILkzJnhKfZ5m4U1Qw0 AGYRiOU97ISB7 wGF9LS86LO78D3RbXrntk GFibGU+PHRhYmxlIHdpZH RoPScxMDAlJyBzdHlsZT0 kYv5jUGKdRHYl jQmadTYmRjJkh0zfPCKrW HrpTM0dkLxsC3NhqIX9MW Hxw2u3Dn39N47oE4BkjEP +VMNwqYK6oES0 qS7fZnMuFxP0VLivR344M dCojKHnQjanq6zwy9kqyG i0HpC3MVFxnmEsxVgnGKF 1a2JrQv28J03f IHdpZHRoPSIxNSUiIHZhb Uwclu7ozU4xBy2+PGNvbC R1kQT7kQ4zQgVhCaC8ZQl cF152BtIkaMDz Unccs3uok5khcZa5WxJhF UIeytUlcIikZYR5h8DoKw 52S1SbxWepp4PhKih6mi5 4dMUuz3R4hWA9 E0UvGHRnlvymzCUuyXrrZ Y7pACGwfoajVGIffN3aQV TvO0x9BrNbQuF2GAdlW2V rifU7QBOteGIi MLhrTZY2R98ne0A6HVLsO PFuZCD1oWG6aB4zzElcuz ogbGVmdDsgdmVydGljYWw nNWppZ389UMVm iFdyECUxbX7kVWVakMDlj YljAL9cBWCfgsqjXbYYES REWSwgSEFOTkFIIEdSQUN GOK49GV00mJGn z7X1sMG1H4KeQQAfnhjpp ywxbHP3XJJaSIWqiZ59nM MwHHkjSf9mw2I8n482ZFY xOMDbgO14Ky9b eXlrRTEohVETsG1yyhqmg 0mwppuvCnDhAJNbCAn8YI y8WYLbxEwkLyWnAJR4FnG 1NDB0pVYpfN3y aPkcuipklQ9qOeo+MDMvM DkvMjAwMTwvdGQ+PHRkIH J2mAzwKVryRXNpbM3pJKQ nS6q0DpPrNtQ8 COrdN8XcWVXkekqfId18i O8bTvKbUmJ6ZBqkF5Acii K4XNIpzYLmSNpoONW0P79 ph4B6TCNwYJFd YUC3jJL3fH8ukVdgbzupb GVmdDsgdmVydGljYWwtYW dhQ826MHEaoQpzDjTvIVm zFFUiBC74ML21 pCUdl9K2lVP8G8LbZYFld latinewyDY8EAVlICBgdO 18gUWsQKnuUz6id3B7o29 7OCGdMFErfV68 Yy6tiWuwEZNnzSONyO9oj jyfp3munytkVxWdLOJgFW u8VMa5ISOkyPrrTiAnTRB 5CpZ6WBB0rNHg tB6ahMbkcxcyjS6jOws+R vUZTWnAYP02NL38zUHdq7 T9ePT3B4QkJQQrhdybwec koKP4BNEvPNEd kX53kYOmWClbWp2qu1Q4r 353ALFuDBJpdB75Zw6raY raAJLttJAQiH8hufmoz9s vcjogIzAwMDAw FQu5NEa3YIQydMsySzUvQ SA6UtR1RIP7mGZgnM5poH xihvfasP0yOnv+W0V3G9C kPjwvdHI+PC90 KTZmAP11xFEpoKPkb2sce Oq1EeQiIYJoFFK7yAssSC lgd2QvJZNrR50bxIOoq9C 6IGNvbGxhcHNl NpYjmDJ9hZ8sFQpbzpykr 4dvmhdkXodjm7wvrp08yN 13T03cOBuzGYNdLAGkOIY cKIYyeBjczf1h wO2jBz5+ZIVunJU8tES4f E4qEiHuHnW1CWgoW507Vv CadLWnVpdic6srl2qpuWb 9IjIwJSIgdmFs lBsuKTZ5w1ZbXg14X80aK HdpZHRoPSIyMCUiIHZhbG umok6odP7lJy2+WX5bc7m ssw46zW32gYW+ TIUpKWP5dGwoEVxvNJDvv B6qVMoyMxV0IZUfIxJobW 07cPRiEQezSk3qlYgurAk mTU1xFZDdfyzl y770LiTxz8thXGQxqFDuJ XpiYCU2O37kk8T1VHEqNQ LzRRV6uTQ8nY0haQggeof gbGVmdDsgdmVy bEskCIigIBhyX692GTJda JsqPjWhgKSyD2qihcHQZN 1lOjwvdGQ+TUDsRZU6aNk eYXznBDMbgR5w HDNuB2v6SqUbKgB7BJchM 6IwjnW6NBVzmOQjJEAwtR XEfE0jucjyb1pkcukuNsT vVQLiNXe3DRl5 GLPcfPdyXmGdCPS0FsL7P RV9uQYlzR4ebPnbhalahJ 9wOyc+RklOOjwvdGQ+PHR jFDZ7nTywJJez YBIbyO1gIRYeO2h4StGeY bH1GWbkE2VwgvJ4ZSBhmA EcITNvmHXPvI8xsvlsc0f vcjogIzAwMDAw BMk8KEx7NVLndQtsMtQqW ZE9JtF9WJX9pSSqcR9huF inejbgrZ7yScq+TVJOOjw vdGQ+PHRkIHN0 oSmmEHlbYSVnnL0hGCXhT 5e8TgCgQdT5ETivY1Zcvc Q4PQVfdPIrXHRgnHDCsT7 ojmkvj1ixullh EnQiBEYzEHl5NVg4XFHna DlhKaMgHXW7LxR5CTD3mN IhtH7ecAxafggiaN8zFoc +GJY6MVJ7MB99 ZB62M9BmIzsrlFNaoZT+P HRhYmxlIHdpZHRoPScxMD TaRoIjxHjoSM4oZo6pRXL yLWNvbGxhcHNl OiB (more content not included)... [facility] Urgent Care Note- Provideron 04-06-2021 [...] and Plan Diagnosis Sprain of left foot (ICA95-VT S93.602A, Discharge, Medical) Plan Condition: Stable. Disposition: [...] she can arrange follow-up as needed. Normal [facility] ED Clinical Summaryon 2020 ED Clinical Summary [facility] ? Urgent Care [address] [place] [address] Clinical Summary PERSON INFORMATION Name: LEIGH MONTOYA Age: 20 Years Sex: FEMALE : 2000 MRN: Acct#: Visit Reason: UC - Ankle/Foot/Toe Pain or Swelling; LEFT FOOT PAIN Arrival: 04/05/2021 16:12:07 Discharge: 04/05/2021 17:50:00 LOS: 000 01:38 Check In: 04/05/2021 16:12:07 Checkout: 04/05/2021 17:50:00 Address: [facility] [id number] PCP: Flex Wang DO PROVIDER INFORMATION Provider Role Assigned Unassigned Monica Dunn LAND ACQUISITION MANAGER Nurse 04/05/2021 16:14:32 Paul Atkins PA-C [...] Sprain Follow-Up: With: Address: When: JEFF Bernabe [employer] [address] [place], [place] [id number] Business (1) , only if needed With: Address: When: Flex Wang [address] [facility] [address] [place] [id number] Business (1) Within 3 to 5 days DIAGNOSIS: Sprain of left foot Patient Understands: Yes - Patient/family/caregi nela verbalizes understanding of instructions given Comment: Normal [facility] ED Patient Summaryon 021 ED Patient Summary [facility] ? Urgent Care [address] [place], [place] [id number] PATIENT DISCHARGE INSTRUCTIONS Patient Information Name: LEIGH MONTOYA Age: 20 Years Date of : 2000 Reason For Visit: UC - Ankle/Foot/Toe Pain or Swelling; LEFT FOOT PAIN Arrival Time: 04/05/2021 16:12:07 Primary Care Physician: Flex Wang DO Attending Physician: Nirav uNnez Comment: Patient Education With: Address: When: JEFF Bernabe [employer] [address] [address] Business (1) , only if needed With: Address: When: Flex Wang [address] [facility], [place] [address] Business (1) Within 3 to [...] ? As (more content not included)... Normal [facility] Urgent Care Recordon 021 Urgent Care Record [facility] ? Urgent Care [address] [facility] [place], [place] [id number] PATIENT DISCHARGE INSTRUCTIONS Patient Information Name: LEIGH MONTOYA Age: 20 Years Date of : 2000 Reason For Visit: UC - Ankle/Foot/Toe Pain or Swelling; LEFT FOOT PAIN Arrival Time: 04/05/2021 16:12:07 Primary Care Physician: Flex Wang DO Attending Physician: Nirav Nunez Comment: Visit Diagnosis: Diagnoses This Visit Sprain of left foot (S93.602A) UC - Ankle/Foot/Toe Pain or Swelling ([id number]) If you received any narcotics, sedation, or [...] With: Address: When: JEFF JESUS [address] [address] Business (1) , only if needed With: Address: When: Flex Wang [address] [facility], [place] [address] Business (1) Within 3 to 5 days Medication Information: The exam and treatment you received today in the [facility] were for an urgent problem and are not intended as complete care. It is important for you to follow up with a doctor, nurse practitioner, or physician?s [employer] assistant manager for ongoing care. If your symptoms become [...] so we can reach you if necessary. [facility] has provided you with a complete list of medications post discharge. Please inform your primary teaching assistant/provider of your visit and for further instruction [...] are no br (more content not included)... [facility] XR Foot Complete Lefton 03-20 [...] Vishal Fernandez 04/06/21 8:27 am Technologist: NELIDA [facility] Coding Summaryon 08-01-2020 Coding Summary HTMLBase 64 YaapljckFQg7nSa+PGhlY WQ+UY3AYWDtD84iuYQqdZ 1NI7vIXF0UBRIUVABIBG1 HPH9drBR9QGkxY7QcpdCa LljotGZrLP78UYd5YSG9e TshMNyyiZ9xmONfU8c1Vl QrMW71nJ89QWobXHOfXgL 3LjZpbjsgbWFy L9fbIzIayDOsGng+PHRhY mxlIHdpZHRoPScxMDAlJy IfqPdkMA1xIq5gCOYqBIT vbGxhcHNlOiBj p4juNXVcHHtjVF0jpQapG 2LgqKK0IDNga3o2Be25sR I+SUXiWGC4kKzuGXdes15 1HbKxo2yvUYK7 nEMoFHpmAWT2V87cm6Q7M PIkVURuLQY8eMK9cW8ddC rvycxvT0DzhEIqJbY2XNZ 4oKIlhE5mgVjl isqipZ3uJve+R34DTP0ER BXVPY3RHdc2D3FaUudffO I+TE31GEAqAK53wUBofKG mf4rdeUz9AxKq WRPyPCI6gJeeNLrrs8KgU TZzX47bkAKes3W4WNUtlY rshGEhNiJkkCB9hJ0sJYp ludoiu3wvgslj Whdjd3tncg69zQ21Q93gM KlmUZQuTZR1VOZhECQppO mfss6isL0gXc7+EIgbv0p bh1zbrEc2XwJe GAMumhUgkJhmMXN4a3FxF m97F7BqiWhdo5HyPff3jk 80cLPee9Z4yVP6UTghTXX uiM2nJXbaWnB7 PNFcFuCxtF75sBTuIKfiJ m5pgYhnbArrEH6rWQDxxf rwECZtrS5tWMIopECgiTn lML4mQMYxbfpo c994GaOdYMY5WLCuoAPqJ 3WesJ2mHnYlGMKqSGEuJ3 AdhXLmUUnaA350QTutBdT 6OGVgkmSzT3Lo IMRrfImrGeY5s4E3Ic9Ra 6YejpkhVGY9GFinCJPlXa J6RfLaQkS2N6JmYqx7UKT poXrzOQ3xO3Nn BBKtvuiduknviLA4UGHtA RQtlY89zOSgXHflKg1qy1 C5h752QGYtHALzrN93Jx0 udDogMTBwdCBU xV7dglisk7zjzumoGkXgD LFmEZj5VPt2WUWrnMpsGk SzNPG8ExT7BZE8gQHzaE1 hpXcmlpsfsI2g Oyc+S05vjQ6lTBS5CUH5t sbjJYFfktJqQC68ZC01T5 RyPjwvdGFibGU+PGRpdiB tqHhlPE4eMbXd z5vbl3HuTZniV7OqFNWdP QidHam0TWFpGZK8oWR4bL 6rFUWlVAyem5M0yYY6R8T gwiJgyj7dd5dg YHVpUMuwZ92klTKrz0B6J TOobAD1KPMsrLhkGbEftS 93Oyc+SVQucLarg5TuDak lm7icy2rnoGk3 BxDoAWGwesEewUqmFPJ0t 3QyEd86X68pTDuqURGoGW AsNRGhNXAinYaikx8fcK8 wIi8+PGNvbCB3 wEI1rI6wNMDuPpX0FZpnH 714IlLrzEHaJslim7hmq7 itcYm5PsQmCOQmvyXauRc tCFN3k4YhLt20 J93jVWnkVAWlLYUvYQJaI CIaiLsbhp8wrC2wVf6+PC 3px4csxo94mE47eCQ+PHR hOMK6dYnsLBzt LPKqdK3jKZexQyU0GJQjV eExvJ44kCShGCrtGh3pcA gjmDkwWK9xNUGwpwdsc50 2GkIue5ydTNTm uWGnUYkuTLH3B26gx5A2H ATtJPDiYRI4bPF6uS8jwP lnbjogbGVmdDsgdmVydGl hRSmsRFouD587 IHRvcDsnPlBhdGllbnQgT wBpONg2Y0XvUxv4SSGcbF ciJX0lyYMxIVhpEp2nzQa xlRjcRZ6vHLIp nhoul960LxGaz4bnCAWdi TFdVKmlBNO8D09dm3H1LO FuJZMyXEG2tQE5qW7atZl nbjogbGVmdDsg uhPekFlkUAbeMJrtC742Q HRvcDsnPkJpcnRoIERhdG G5NJ40YH58dZTdp5F6dBC 4O5PmBJCeskpv sainxZZ3HYSwSYLrjX49U g6wfRioHs0gMUGbYAH9UM HbwPPvK2HdhC1rYrNyZZQ uYAHlL0WubWPx NXvrY518JFutQqH2FAQbz fYbX9MqQZQzwMrgVcE3q2 T1Ff4RP4R6HA58AB54xGL ku9K0nTN5P9Ei ORZwhzxwivolvZN8WGMbJ UOydG14Jc7ayIltVb6dZM GwTRN6OBQpvKQkJ9RxhF2 yOiAjMDAwMDAw A7XmvSDnHGylM299EKzrK iV0NKBjmtMvR6EnMVVhbR giLfA2w8W2Wy7XQAk0LF3 3NY94mQOva4T0 tXC9R4CtOIMyltbsqiasv HI4BZOzSADnaV09Lx7upN hcHp1mYUAvKBY4WLRrqJP nQ1UknI6aKcAe BLQnWGVkC6CojPGwDJpgK 843HNoqNvG4ZLCotpLzC0 PwWLFruPtkEzX3j4I8Ao6 JMQDwNB55PWV5 qZB1OR81JH64V4SwAnwaf GFibGU+PHRhYmxlIHdpZH RoPScxMDAlJyBzdHlsZT0 gUx0xDAMtBORl bQdsiGUrKjNms0koSOXiF VehHM8erQfjC7RubCZ7YB Qav1a5Kl21W29vP0JjyPN +UIMjzNX6cWB5 aA6vEmWsTmI5OYksA027H rFazNZpIpuka6zoj8zifY q0WbY1VIPjpmVfmIsxHHV 2k7EkUi97C61b IHdpZHRoPSIxNSUiIHZhb Yaucf9puF9pIa3+PGNvbC E2wVL5dA2zWfNeDsH9XFw uA021LoGslBSg Ttlpy7okb7sqyNw3UyCmC FFnmmCcnHcvNBG6v6ClPr 75P8PstAzej8EqRyv9zz2 0zFCqd9E6qHV0 R7SwZXGiqknhzIJtyLeaQ M7aDLVvymwsJKKceC8vQH DgP0m9FkSmKhF3KOkoC9N lgzK7CKWrrBLf MGtrSKN9M14sm4S1KALdO FVpAUF7lSC2uI6bfCrvyj ogbGVmdDsgdmVydGljYWw wLPfwJ805HHHw rSxqPZFuoM8eMPGlqSJwv JxhRY1pEQPfuuzuRcWXBC REWSwgSEFOTkFIIEdSQUN BKN11MX08uUIr y3U8sLD6G0SnZCVarhgir vfpeKZ3JHPnCFLhcT17kQ BsNWceTc1dp3Z5m482MJN eFKIlhQ01Vl7n hXoxPUPjjTCQkG0beobdd 2szkstdDdOrSEBtDKk4OH y0BIEgsCttHjCwTBO4XgJ 2PMV0cJVwsI8l lKsbcojheY3fEbb+MDMvM DkvMjAwMTwvdGQ+PHRkIH Y2tWiuNTrmFHMowS3jYUU cM2u3YaPnLbC0 WNbvI3EnGDJpgznrRz38a V0cUdTlMdF7ERemZ3Jhcr J7OJCsnYTkVVyqZOW5O87 hf7R1JZZfAILz JHB6vJN3uT5fuXqmvdfur GVmdDsgdmVydGljYWwtYW liA220SXHbwCfwVfUzNYu xUIOkOB56PT06 aGVrz7O1eRT1P7ThIHFuv evafwzxoDS6CVCeILCbbQ 78eDXnWRfbEg7vu2Z6d58 4IQOvYTFeeR01 Ar4vxBvcIKPeiUIHzF5bn ktuz8thunblNgCaEMSnTO b7XGe6EFWqrYvbHvPtSNF 5YzS8EXA2bSYr wK5xhEeclkiclE6gMvj+R xWLSEwUOK15XK03gOJdr2 K0xFL1P8FkPWVozwnfkth veGT3KZUcIVPv aV76eYVlWTutRg1wi7D1i 130JIHsWCCniQ81Xa5wdX krFYDpkOVJmU6fsebyr2m vcjogIzAwMDAw XXw1BVo1KGDitAioRoCcT SW0JkD3OGO9uGUfsW8xoY hbyqcorX5aSkf+M8S4C8W kPjwvdHI+PC90 TKApSV14sCBbyWTep1zvg Lx2WcTwSTElLZS2lNauPS que3MuXOUwD91ozXOla5J 6IGNvbGxhcHNl FiKbrCS3zK7oXTnmljqpc 9euibwiLrvju8cksa96pH 01N10dUVcjOIAjPVYnBYD qBCKfdBeqez1e mL6dCx2+AUSxbRJ0aYI9e B0eQoQrAtJ4DHkjF666Ap GnhTNhGphtx9jdb3xkzAo 9IjIwJSIgdmFs iHepMSM6f0RtBt24J45wR HdpZHRoPSIyMCUiIHZhbG cgtb8ecZ2nUt8+VO3zn1x sny80iX06oMJ+ XTFbRWN0hNzxPYrkKUTio M6pLArfObT7VTCoCqJdrD 84yUAsCVqjRz1vxSdbsBb qXW1tTEDvzemt i213JzRrn7loQSTulMBqB DklAKI2H43hh9W1MGGmWL MiWZF9pTU3hN9olWpjpyq gbGVmdDsgdmVy nUwoEXvfOKuwK205KQXtt MylMvZytNSvM8nvauEAUR 1lOjwvdGQ+WYXnXKD2hEb mNSvoBPGawZ1q EWEmM3f9XtPjDxY9KUepI 6DagoC5XBDdsAMyEWXvsR JEiL2djziml9xafelmGsE kNXHdKVl0FZi0 XCLcbMmqGpTcOAW7OoB1M VS4pZMfiC7omRwdknmppT 9wOyc+RklOOjwvdGQ+PHR iOKG5fGzpTOdm YOHfrY5sWJBsJ2e5WzVeY uR2QFieY2ClllI1IYAnqM BgBXEysDEHpD4bqdigs7h vcjogIzAwMDAw UPf0TKf7BMOadCimXfHxT GC2XbR9WVB4aUWjqF8xjN vxjptynV7mQri+TVJOOjw vdGQ+PHRkIHN0 tEirWGabSVEagW8yJOSnB 7z0QuHuAuL5VCukT6Qelx C9OBKkfNYtWXNsyADQyM3 iqkygy2wxdtvb NhUxGNCpDAn3CRa4HIDvs QeaJeDhCCV0HgN9EDE3aE KtiB8qgMjkckkumU6sZpe +KOX9FZV3QJ94 GH03O0OrGhnqeSAydUQ+P HRhYmxlIHdpZHRoPScxMD VuJyJjvZcsRQ8nVl5kXZX yLWNvbGxhcHNl OiB (more content not included)... Normal [facility] C Throaton 07-31-2020 C Throat Ordered by Discern. Normal throat regi isolated No pathogens isolated Normal [facility] Comment on above: Performed By: #### [id number] ####[facility] (DEFAULT)[address] [place] [address] ED Clinical Summaryon 2020 ED Clinical Summary [facility] ? Urgent Care [address] [place] [address] Clinical Summary PERSON INFORMATION Name: LEIGH MONTOYA Age: 20 Years Sex: FEMALE : 2000 MRN: Acct#: Visit Reason: UC - Sore Throat; THROAT PAIN Arrival: 07/29/2020 09:44:22 Discharge: 07/29/2020 10:23:00 LOS: 000 00:39 Check In: 07/29/2020 09:44:22 Checkout: 07/29/2020 10:23:00 Address: [address] [place] [address] PCP: Flex Wang DO PROVIDER INFORMATION Provider [...] Negative . Impression and Plan Diagnosis Pharyngitis (HMQ24-TR J02.9, Discharge, Medical) Plan Condition: Stable. Disposition: Discharged: Time 07/29/2020 10:17:00 (more content not included)... Normal [facility] ED Note - Provideron 021 [...] Negative . Impression and Plan Diagnosis Pharyngitis (FIG20-TH J02.9, Discharge, Medical) Plan Condition: Stable. Disposition: Discharged: Time 07/29/2020 10:17:00, to home. Patient was given the following educational materials: Pharyngitis, Dggf-hy-Nzsd, Pharyngitis, Rajd-xg-Rzbi. Follow up with: Flex Wang Within 2 [...] on: 07/29/2020 10:20 EST] Patricia Meeks PA-C [facility] ED Patient Summaryon 021 ED Patient Summary [facility] ? Urgent Care [address] [place] [id number] PATIENT DISCHARGE INSTRUCTIONS Patient Information Name: LEIGH MONTOYA Age: 20 Years Date of : 2000 Reason For Visit: UC - Sore Throat; THROAT PAIN Arrival Time: 07/29/2020 09:44:22 Primary Care Physician: Flex Wang DO Attending Physician: Patricia Meeks PA-C Comment: Patient Education With: Address: When: Flex Wang [address] [facility], [address] [place] [id number] Business (1) Within 2 to 4 days [...] Follow these instructions at home: ? Take pade-ozq-axzmdwi and prescription medicines only as told by [...] 10/22/2008 Document Revised: 04/18/2018 Document Reviewed: 06/11/2017 [employer] Patient Education ? 2020 [employer]. Medication Information: The exam and treatment you received today in the [facility] Emergency Department were for an urgent problem and are not intended as complete care. It is important for you to follow up with a doctor, nurse practitioner, or physician?s [employer] assistant manager for ongoing care. If your symptoms become [...] so we can reach you if necessary. [facility] Emergency Department has provided you with a complete list of medications post discharge. Please inform your primary teaching assistant/provider of your visit and for further instruction [...] Throat (C11 (more content not included)... Normal [facility] Strep Aon 07-29-2020 Strep procedure control Pass Normal [facility] Comment on above: Performed By: #### 6 [id number] ####[facility] (DEFAULT)[address] [place] [id number] Streptococcus A Negative Normal Negative [facility] Comment on above: Performed By: #### 6 [id number] ####[facility] (DEFAULT)[address] [place] [id number] Ur[facility] Care [place] 021 Urgent Care Record [facility] ? Urgent Care [address] [place] [address] PATIENT DISCHARGE INSTRUCTIONS Patient Information Name: LEIGH MONTOYA Age: 20 Years Date of : 2000 Reason For Visit: UC - Sore Throat; THROAT PAIN Arrival Time: 07/29/2020 09:44:22 Primary Care Physician: Flex Wang DO Attending Physician: Patricia Meeks PA-C Comment: Visit Diagnosis: Diagnoses This Visit Pharyngitis (J02.9) UC - Sore Throat ([id number]) If you received any narcotics, sedation, or [...] sign any legal documents With: Address: When: Flxe Wang [address] [facility], [address] [place] [id number] Business (1) Within 2 to 4 days [...] and treatment you received today in the [facility] were for an urgent problem and are not intended as complete care. It is important for you to follow up with a doctor, nurse practitioner, or physician?s [employer] assistant manager for ongoing care. If your symptoms become [...] so we can reach you if necessary. [facility] Urgent [facility] has provided you with a complete list of medications post discharge. Please inform your primary teaching assistant/provider of your visit and for further instruction [...] Follow these instructions at home: ? Take kobh-lri-etrplpy and prescription medicines only as told by [...] help righ (more content not included)... Normal [facility] Coding Summaryon 06-27-2020 Coding Summary CODING DATE: 06/27/2020 [facility] STATUS: Home PAYOR: Commercial Insurance ADMIT [...] Nano Padilla Date Saved: 06/27/2020 12:37 pm [facility] ED Clinical Summaryon 2020 ED Clinical Summary [facility] ? Urgent Care [address] [place] [address] Clinical Summary PERSON INFORMATION Name: LEIGH MONTOYA Age: 19 Years Sex: FEMALE : 2000 MRN: Acct#: Visit Reason: UC - Ear Pain; UC - Ear Pain; RIGHT EAR PAIN Arrival: 06/18/2020 15:00:59 Discharge: 06/18/2020 15:27:00 LOS: 000 00:27 Check In: 06/18/2020 15:00:59 Checkout: 06/18/2020 15:27:00 Address: [address] [place] [address] PCP: Flex Wang DO PROVIDER INFORMATION Provider Role Assigned Unassigned Monica Dunn LAND ACQUISITION MANAGER Nurse 06/18/2020 15:03:15 Marv Shannon ED PA 06/18/2020 15:03:24 VITALS INFORMATION Vital Sign Triage Latest Temperature Tympanic Temperature Temporal Artery Pulse Rate O2 Sat 98 % 98 % Respiratory Rate Blood Pressure /78 mmHg /78 mmHg MEDICAL INFORMATION Medications Given: Allergy Information: sulfamethoxazole; ibuprofen PHYSICIAN DOCUMENTATION DISCHARGE INFORMATION: Discharge Disposition: Home Discharge Location: Home PATIENT EDUCATION INFORMATION Instructions: Otitis Media, Adult, Mnbo-pj-Zqgl Follow-Up: With: Address: When: Flex Wang [address] [facility], [place] [address] Business (1) Comments: Begin on the amoxicillin-clavulana te antibiotic take every 12 hours for the next 10 days Follow-up with your primary care physician in 3-5 days for reevaluation, sooner if any worsening symptoms DIAGNOSIS: Otitis media, right Patient Understands: Yes - Patient/family/caregi nela verbalizes understanding of instructions given Comment: [facility] ED Patient Summaryon 021 ED Patient Summary [facility] ? Urgent Care [address] [place] [address] PATIENT DISCHARGE INSTRUCTIONS Patient Information Name: LEIGH MONTOYA Age: 19 Years Date of : 2000 Reason For Visit: UC - Ear Pain; UC - Ear Pain; RIGHT EAR PAIN Arrival Time: 06/18/2020 15:00:59 Primary Care Physician: Flex Wang DO Attending Physician: Marv Shannon Comment: Patient Education With: Address: When: Flex Wang [address] [facility], [address] [place] [phone] Business (1) Comments: Begin on the amoxicillin-clavulana [...] Follow these instructions at home: ? Take imrs-xrh-fpcglim and prescription medicines only as told by [...] 10/22/2008 Document Revised: 04/18/2018 Document Reviewed: 05/27/2017 [employer] Patient Education ? [address] [employer]. Medication Information: The exam and treatment you received today in the [facility] Emergency Department were for an urgent problem and are not intended as complete care. It is important for you to follow up with a doctor, nurse practitioner, or physician?s [employer] assistant manager for ongoing care. If your symptoms become [...] so we can reach you if necessary. [facility] Emergency Department has provided you with a complete list of medications post discharge. Please inform your primary teaching assistant/provider of your visit and for further instruction on these medications. Any specific questions regarding your chronic medications and dosages should be discussed with your primary care physician(s) and/or pharmacist. New Medications [facility], [address] [place] [phone], [phone] amoxicillin-clavulana te (Augmentin 500 mg-125 mg oral [...] media, right (H66.91) UC - Ear Pain ([id number]) UC - Ear Pain ([id number]) If you received any narcotics, sedation, or any other medication that causes drowsiness for the next 24 hours, unless otherwise directed: ? Do not drive a car. ? Do not operate machinery such as power tools, lawn mowers, drills, sewing machines, or stoves ? Avoid alcoholic beverages and drugs for allergies, n (more content not included)... Normal [facility] Urgent Care Note- Provideron 06-18-2020 [...] Impression and Plan Diagnosis Otitis media, right ([id number] H66.91, Discharge, Medical) Plan Prescriptions: [facility] prescriptions Pharmacy: Augmentin 500 mg-125 mg oral tablet (Prescribe): 1 tab(s), PO, q12hr, for 10 day(s), 20 tab(s), 0 Refill(s). Patient was given the following educational materials: Otitis Media, Adult, Otmb-ab-Yxhy. Follow up with: Flex Wang Begin on the amoxicillin-clavulana te antibiotic take every 12 hours for the next 10 days Follow-up with your primary care physician in 3-5 days for reevaluation, sooner if any worsening symptoms. Counseled: Patient, Regarding diagnosis, Regarding diagnostic results, Regarding treatment plan, Regarding prescription, Patient indicated understanding of instructions. Normal [facility] Care [place] 021 Urgent Care Record [facility] ? Urgent Care [address] [place] [id number] PATIENT DISCHARGE INSTRUCTIONS Patient Information Name: LEIGH MONTOYA Age: 19 Years Date of : 2000 Reason For Visit: UC - Ear Pain; UC - Ear Pain; RIGHT EAR PAIN Arrival Time: 06/18/2020 15:00:59 Primary Care Physician: Flex Wang DO Attending Physician: Marv Shannon Comment: Visit Diagnosis: Diagnoses This Visit Otitis media, right (H66.91) UC - Ear Pain ([id number]) UC - Ear Pain ([id number]) If you received any narcotics, sedation, or [...] With: Address: When: Flex Wang [address] [facility] [place] [address] [place] [address] Business (1) Comments: Begin on the amoxicillin-clavulana te antibiotic take every 12 hours for the next 10 days Follow-up with your primary care physician in 3-5 days for reevaluation, sooner if any worsening symptoms Medication Information: The exam and treatment you received today in the [facility] were for an urgent problem and are not intended as complete care. It is important for you to follow up with a doctor, nurse practitioner, or physician?s [employer] assistant manager for ongoing care. If your symptoms become [...] so we can reach you if necessary. [facility] has provided you with a complete list of medications post discharge. Please inform your primary teaching assistant/provider of your visit and for further instruction on these medications. Any specific questions regarding your chronic medications and dosages should be discussed with your primary care physician(s) and/or pharmacist. New Medications [facility], [address] [place], [place] [id number], [phone] amoxicillin-clavulana te (Augmentin 500 mg-125 mg oral [...] Follow these instructions at home: ? Take gkhw-wmh-eyugpgn and prescription medicines only as told by [...] (paralyzed). ? You (more content not included)... [facility] Consent Formson 04-28-2020 Consent Forms [id number] [facility] 04-28-2020 Provider Orders [id number] .00[facility] Coding Summaryon 04-25-2020 Coding Summary CODING DATE: 04/25/2020 [facility] STATUS: Home PAYOR: Commercial Insurance ADMIT [...] Nano Padilla Date Saved: 04/25/2020 02:38 pm [facility] .QC Respiratory Panel 2.1 (B ioFire)on 04-22-2020 Internal Control-Resp Panel 2.1(BioFire) Pass [facility] Comment on above: Order Comment: Order ed by Holley.[[id number]] Performed By: #### 6 [id number], [id number] ####[facility] (DEFAULT)[address] [place] [address] Respiratory Panel 2.1 (BioFi re)on 04-22-2020 Adenovirus -BioFire Not detected Normal Not Detected [facility] Comment on above: Performed By: #### 6 [id number], [id number] ####[facility] (DEFAULT)[address] [place] [address] Bordetella parapertussis -BioFire Not detected Normal Not Detected [facility] Comment on above: Performed By: #### 6 [id number], [id number] ####[facility] (DEFAULT)[address] [place] [address] Bordetella pertussis -BioFire Not detected Normal Not Detected [facility] Comment on above: Performed By: #### 6 [id number], [id number] ####[facility] (DEFAULT)[address] [place] [address] Chlamydia pneumoniae -BioFire Not detected Normal Not Detected [facility] Comment on above: Performed By: #### 6 [id number], [id number] ####[facility] (DEFAULT)[address] [place] [address] Coronavirus 229E (Not COVID-19) -BioFire Not detected Normal Not Detected [facility] Comment on above: Performed By: #### 6 [id number], [id number] ####[facility] (DEFAULT)[address] [place] [address] Coronavirus HKU1 (Not COVID-19) -BioFire Not detected Normal Not Detected [facility] Comment on above: Performed By: #### 6 [id number], [id number] ####[facility] (DEFAULT)[address] [place] [address] Coronavirus NL63 (Not COVID-19) -BioFire Not detected Normal Not Detected [facility] Comment on above: Performed By: #### 6 [id number], [id number] ####[facility] (DEFAULT)[address] [place] [address] Coronavirus OC43 (Not COVID-19) -BioFire Not detected Normal Not Detected [facility] Comment on above: Performed By: #### 6 [id number], [id number] ####[facility] (DEFAULT)[address] [place] [address] Employed in healthcare? No Invalid Interpretation Code [facility] Comment on above: Performed By: #### 6 [id number], [id number] ####[facility] (DEFAULT)[address] [place] [address] Group care resident? No Invalid Interpretation Code [facility] Comment on above: Performed By: #### 6 [id number], [id number] ####[facility] (DEFAULT)[address] [place] [address] Human Metapneumovirus -BioFire Not detected Normal Not Detected [facility] Comment on above: Performed By: #### 6 [id number], [id number] ####[facility] (DEFAULT)[address] [place] [address] Human Rhinovirus/Enterovir us -BioFire Not detected Normal Not Detected [facility] Comment on above: Performed By: #### 6 [id number], [id number] ####[facility] (DEFAULT)[address] [place] [address] In ICU? No Invalid Interpretation Code [facility] Comment on above: Performed By: #### 6 [id number], [id number] ####[facility] (DEFAULT)[address] [place] [address] Influenza A (no subtype) -BioFire Not detected Normal Not Detected [facility] Comment on above: Performed By: #### 6 [id number], [id number] ####[facility] (DEFAULT)[address] [place] [address] Influenza A -BioFire Not detected Normal Not Detected [facility] Comment on above: Performed By: #### 6 [id number], [id number] ####[facility] (DEFAULT)[address] [place] [address] Influenza A H1 -BioFire Not detected Normal Not Detected [facility] Comment on above: Performed By: #### 6 [id number], [id number] ####[facility] (DEFAULT)[address] [place] [address] Influenza A H1-2009 -BioFire Not detected Normal Not Detected [facility] Comment on above: Performed By: #### 6 [id number], [id number] ####[facility] (DEFAULT)[address] [place] [address] Influenza A H3 -BioFire Not detected Normal Not Detected [facility] Comment on above: Performed By: #### 6 [id number], [id number] ####[facility] (DEFAULT)[address] [place] [address] Influenza B -BioFire Not detected Normal Not Detected [facility] Comment on above: Performed By: #### 6 [id number], [id number] ####[facility] (DEFAULT)[address] [place] [address] Mycoplasma pneumoniae -BioFire Not detected Normal Not Detected [facility] Comment on above: Performed By: #### 6 [id number], [id number] ####[facility] (DEFAULT)[address] [place] [address] Parainfluenza Virus 1 -BioFire Not detected Normal Not Detected [facility] Comment on above: Performed By: #### 6 [id number], [id number] ####[facility] (DEFAULT)[address] [place] [address] Parainfluenza Virus 2 -BioFire Not detected Normal Not Detected [facility] Comment on above: Performed By: #### 6 [id number], [id number] ####[facility] (DEFAULT)[address] [place] [address] Parainfluenza Virus 3 -BioFire Not detected Normal Not Detected [facility] Comment on above: Performed By: #### 6 [id number], [id number] ####[facility] (DEFAULT)[address] [place] [address] Parainfluenza Virus 4 -BioFire Not detected Normal Not Detected [facility] Comment on above: Performed By: #### 6 [id number], [id number] ####[facility] (DEFAULT)[address] [place] [address] status? Not Invalid Interpretation Code [facility] Comment on above: Performed By: #### 6 [id number], [id number] ####[facility] (DEFAULT)[address] [place] [address] Respiratory Syncytial Virus -BioFire Not detected Normal Not Detected [facility] Comment on above: Performed By: #### 6 [id number], [id number] ####[facility] (DEFAULT)[address] [place] [address] SARS-CoV-2 (COVID-19) RNA OZZIE+probe Ql (Unsp spec) Not detected Normal Not Detected [facility] Comment on above: Performed By: #### 6 [id number], [id number] ####[facility] (DEFAULT)[address] [place] [address] SARS-CoV-2 (COVID-19) RNA OZZIE+probe Ql (Unsp spec) No Invalid Interpretation Code [facility] Comment on above: Performed By: #### 6 [id number], [id number] ####[facility] (DEFAULT)[address] [place] [address] Symptomatic as defined by CDC? No Invalid Interpretation Code [facility] Comment on above: Performed By: #### 6 [id number], [id number] ####[facility] (DEFAULT)[address] [place] [address] Vital Signs Date Time Vital Sign Value Performing Clinician Facility 12-06-2021 16:30-0400 Body height 160.02 cm Ezequiel Melo Other [email or web address] Other 12-06-2021 16:30-0400 Body mass index (BMI) [Ratio] 41.62 kg/m2 Ezequiel Melo Other [email or web address] Other 12-06-2021 16:30-0400 Body weight 106.6 kg Ezequiel Melo Other [email or web address] Other 10-11-2021 14:45-0400 Body height 160.02 cm Ezequiel Melo Other [email or web address] Other 10-11-2021 14:45-0400 Body mass index (BMI) [Ratio] 41.98 kg/m2 Ezequiel Melo Other [email or web address] Other 10-11-2021 14:45-0400 Body weight 107.5 kg Ezequiel Melo Other [email or web address] Other 10-11-2021 14:45-0400 Diastolic blood pressure 79 mm[Hg] Ezequiel Melo Other [email or web address] Other 10-11-2021 14:45-0400 Systolic blood pressure 128 mm[Hg] Ezequiel Melo Other [email or web address] Other Encounters Encounter Date Encounter Type Care [...] 12-06-2021 End: 12-06-2021 ambulatory Ezequiel Melo Other [email or web address] Other Start: 12-06-2021 Patient encounter procedure Ezequiel Melo [facility] G[facility] Start: 10-11-2021 End: 10-11-2021 ambulatory Ezequiel Melo Other [email or web address] Other Start: 10-11-2021 FQ visit new patient Ezequiel Melo [facility] Payers Date Payer Category Payer Unknown [id number] 2000 Unknown [id number] 2.16.84 [id number] 2000 Unknown [id number] 2.16.84 [id number] 2000 Unknown [id number] 2.16.84 [id number] 2000 Unknown [id number] 2.16.84 [id number] 2000 Unknown [id number] 2.16.84 [id number] 2000 Unknown [id number] 2.16.84 [id number] 2000 Unknown [id number] 2.16.84 [id number] 2000 Unknown [id number] 2.16.84 [id number] 1959 Unknown [id number] Medicaid [id number] 2. [id number] Social History Date Type Detail Facility Sex Assigned At [email or web address] Other Evaluation note 12-06-2021 Note Date & Type Note Facility 12-06-2021 Evaluation note Encounter Date Diagnosis Assessment Notes Nov, Dyspepsia (ICD-10 - K30) patient states does have some bloating in the left center she does have pain noted. patient is advised that we can start levsin and refer to leadership program internship for food testing. [email or web address] Other Evaluation note 05-25-2022 Note Date & Type Note Facility 10-11-2021 Evaluation note Encounter Date Diagnosis Assessment Notes September, Bloating (ICD-10 - R14.0) September, Dyspepsia (ICD-10 - K30) September, Abdominal pain (ICD-10 - R10.9) [email or web address] Other Clinical Note 04-05-2021 Note Date & [...] This may take several hours. ? Take afpq-xvr-pfivvul and prescription medicines only as told by your health care provider. ? When you can walk without pain, wear supportive shoes that have stiff soles. Do not wear flip-flops, and do not walk barefoot. ? Keep all follow-up visits as told by your health care provider. This is important. Contact a health care provide (more content not included)... [facility] Clinical Note 07-29-2020 Note Date & Type Note Facility 07-29-2020 Note Patient Education Ma terials Follows:Disease Pharyngitis Pharyngitis is a sore throat (pharynx). This is when there is redness, pain, and swelling in your throat. Most of the time, this condition gets better on its own. In some cases, you may need medicine. Follow these instructions at home: ? Take dhfz-axa-ajspadx and prescription medicines only as told by [...] 10/22/2008 Document Revised: 04/18/2018 Document Reviewed: 06/11/2017 [employer] Patient Education ? [address] [employer]. [facility] Clinical Note 06-18-2020 Note Date & Type Note Facility 06-18-2020 Note Patient Education Ma terials Follows: Otitis Media, Adult Otitis media means that the middle ear is red and swollen (inflamed) and full of fluid. The condition usually goes away on its own. Follow these instructions at home: ? Take vask-ghl-rfxmudu and prescription medicines only as told by [...] 10/22/2008 Document Revised: 04/18/2018 Document Reviewed: 05/27/2017 [employer] Patient Education ? 2019 [employer] [facility]. [facility] Clinical Note 04-22-2020 Note Date & Type Note Facility 04-22-2020 Note Nasal swab performed without complication. Patient tolerated well. Education given. Patient verbalized understanding. [Electronically Signed on: 04/22/2020 15:05 EST] Miri Nuñez RN [Verified on: 04/22/2020 15:05 EST] Miri Nuñez RN [facility] History general Narrative - Reported Note Date & Type Note Facility History general Narrative - Reported Type Medical History PCOS Medical History Endometriosis Surgical History laparoscopy - endometriosis [email or web address] Other Reason for referral (narrative) Note Date [...] is able to get in before this. [email or web address] Other Reason for visit Narrative Note Date & Type Note Facility Reason for visit Narrative PATIENT HERE AT THE REQUEST OF DR. VERGARA FOR EVALUATION & TREATMENT OF BLOATING [email or web address] Other Reason for visit Narrative Note Date [...] of the side effects that were listed. [email or web address] Other Summary Purpose Family History No Family History Records FoundNo Family History Records FoundNo Family History Records FoundNo Family History Records Found Advance Directives No Advanced Directives Records FoundNo Advanced Directives Records FoundNo Advanced Directives Records FoundNo Advanced Directives Records Found Additional Source Comments INFORMATION SOURCE (unrecogn ized section and content) DATE CREATED AUTHOR 04/21/2021 [facility] DATE CREATED AUTHOR AUTHOR'S ORGANIZ ATION 11/08/2021 [facility] DATE CREATED AUTHOR AUTHOR'S ORGANIZ ATION 09/06/2022 [facility] DATE CREATED AUTHOR AUTHOR'S ORGANIZ ATION 01/04/2024 [facility] dical Specialists [facility] FOR RECORDS PERTAINING TO PATIENTS WHO ARE [...] BE BASED ON THE PRIMARY CLINICAL RECORDS. [employer] provides no warranty or guarantee of the accuracy or completeness of information in this document.
--- NOTE | 2024-01-30 19:17 | US_ITS ---
[address] [address] Patient Name: SHAQUILLE VIEYRA MRN: [id number] date: 2000 Sex: F Assigned Patient Location: [facility] Current Patient Location: Accession/Order Number: [id number] Exam Date: 01/30/2024 19:25 Report Date: 01/31/2024 05:31 At the request of: MIRIAM HAWLEY Procedure: US OB BPP w non-stress EXAMINATION: US OB BPP w non-stress HISTORY:EXCESSIVE GROWTH AFFECTING O36.63X0 COMPARISON: Ultrasound OB biophysical 01/23/2024 TECHNIQUE: Ultrasound biophysical profile was performed in the radiology department. BREATHING MOVEMENTS: 2 GROSS BODY MOVEMENTS: 2 TONE: 2 QUALITATIVE AMNIOTIC FLUID VOLUME: 2 PRESENTATION: CEPHALIC HEART RATE: 127.36 bpm AMNIOTIC FLUID VOLUME: 10.82 cm GESTATIONAL AGE: 34 weeks 4 days US/US OB BPP w non-stress IMPRESSION: Total biophysical profile score: 8 Electronically authenticated by: KEEGAN HUMPHREY Date: 01/31/2024 05:31
[2024-01-30 20:14] VITALS: BP 126/77; PULSE 95
== END 2024-01-30 20:41 | disposition home or self-care (01) ==
LOC: US 19:02 → FBC 19:02 → US 19:06 → FBC 19:11
PROVIDERS: Visit Provider Physician Assistant
DX: O36.63X0 Maternal care for excessive fetal growth, third trimester, not applicable or unspecified (principal); O13.3 Gestational [pregnancy-induced] hypertension without significant proteinuria, third trimester; Z3A.34 34 weeks gestation of pregnancy
CPT/HCPCS: 76818

== ENCOUNTER 2024-02-03 08:33 | Outpatient (OUT) | payer OTHER, SELFPAY ==
--- OUTSIDE RECORDS SUMMARY | 2024-02-03 08:55 | XMS_ITS | CCD ---
Author Organization [facility] Care Team Providers Care Weed Burner Name Role Phone Ezequiel Melo Unavailable [facility], DR MIRANDA Primary Care Unavailable JAI ., DR UNDERWOOD Admitting Unavailable JAI ., DR UNDERWOOD Consulting Unavailable JAI ., DR UNDERWOOD Attending Unavailable MISC, DR MIRANDA Primary Care Unavailable JAI ., DR UNDERWOOD Admitting Unavailable JAI ., DR UNDERWOOD Consulting Unavailable JAI ., DR UNDERWOOD Attending Unavailable JAIYASMINE MCINTYRE Attending Unavailable YASMINE VERGARA Attending Unavailable YASMINE VERGARA Attending Unavailable MIRIAM HAWLEY Attending Unavailable YASMINE VERGARA Attending Unavailable MIRIAM HAWLEY Attending Unavailable YASMINE VERGARA Attending Unavailable Allergies Allergy Classification Reported Allergen(s) Allergy Type Date of Onset Reaction(s) Facility (2 sources) Sulfacetamide Drug Allergy [facility] [place] Other (1 source) Sulfonamides (Antibiotic) Drug allergy (disorder) [facility] Repository Medications Current Medications Medication Drug [...] 21 to 29on 09-06-2022 . . Normal [facility] Comment on above: Performed By: #### 4 [id number] #### [facility] [address] [place] [address] Dr. Dat Wesley Age Gdln ACOG Testing 21- Normal [facility] Comment on above: Performed By: #### 4 [id number] #### [facility] [address] [place] [address] Dr. Dat Wesley DIAGNOSIS: Comment Normal [facility] Comment on above: Result Comment: NEGA TIVE FOR INTRAEPITHELIAL LESION OR MALIGNANCY. Performed By: #### 4 [id number] #### [facility] [address] [place] [address] Dr. Dat Wesley Methodology: Comment Normal [facility] Comment on above: Result Comment: This liquid based ThinPrep(R) pap test was screened with the use of an image guided system. Performed By: #### 4 [id number] #### [facility] [address] [place] [address] Dr. Dat Wesley Note: Comment Normal [facility] Comment on above: Result Comment: The Pap smear is a screening test designed to aid in the detection of premalignant and malignant conditions of the uterine cervix. It is not a diagnostic procedure and should not be used as the sole means of detecting cervical cancer. Both false-positive and false-negative reports do occur. . Performed By: #### 4 [id number] #### [facility] [address] [place] [address] Dr. Dat Wesley Performed by: Comment Normal [facility] Comment on above: Result Comment: Singh Sanders Sleep Manager (ASCP) Performed By: #### 4 [id number] #### [facility] [address] [place] [address] Dr. Dat Wesley Reflex Criteria: Comment Normal [facility] Comment on above: Result Comment: The HPV DNA reflex criteria were not met with this specimen result therefore, no HPV testing was performed. . Performed By: #### 4 [id number] #### [facility] [address] [place] [address] Dr. Dat Wesley Specimen adequacy: Comment Normal [facility] Comment on above: Result Comment: Sati sfactory for evaluation. Endocervical and/or squamous metaplastic cells (endocervical component) are present. Performed By: #### 4 [id number] #### [facility] [address] [place] [address] Dr. Dat Wesley HCG,Urineon 11-03-2021 Beta HCG ( test) Ql (U) Negative Normal [facility] Comment on above: Result Comment: PERF ORMED BY: [address] [place] [id number] PATHOLOGIST NURSE CLINICAL SULTANA PETE M.D. Performed By: #### U HCG #### [place] [id number] [facility] 11-03-2021 L - -------- Specimen: [id number] Received: 11/03/21 Status: AYDIN Johnson Num: [id number] Spec Type: Surgical Subm Dr: Ezequiel Melo MD Tissues: A Small Intestine - Biopsy/Polyp (SMALL BOWEL) Procedures: HE Stain/2, Gross/Micro L4 -------- Patient Age/Sex Location Account Attending Physician -------- Leigh Singh / [id number] Ezequiel Melo MD -------- SPEC NUM: [id number] RECD: 11/03/21 STATUS: AYDIN TRANG NUM: [id number] PAPI: 11/03/21 [facility] DR: Ezequiel Melo MD ENTERED: 11/03/21 [facility] DR: SPEC TYPE: Surgical DEPT: S [...] Type of Fixative: 10% Neutral Buffered Formalin (SM/YJ) Microscopic Description Two H E stained slides are reviewed. Microscopic examination is performed. This case is interpreted at [facility], [place], [place] -------- Specimen: Received: 11/03/21 Status: AYDIN Johnson Num: [id number] Spec Type: Surgical Subm Dr: Ezequiel Melo MD Tissues: A Small Intestine - Biopsy/Polyp (SMALL BOWEL) Procedures: HE Stain/2, Gross/Micro L4 -------- Patient: Leigh Singh [id number] (Continued) -------- Specimen: [id number] Received: 11/03/21 (Continued) Signed (signature on file) Gabe Ellis MD 11/06/21 1703 -------- Specimen: Received: 11/03/21 Status: RAFAELChino Johnson Num: [id number] Spec Type: Surgical Subm Dr: Ezequiel Melo MD Tissues: A Small Intestine - Biopsy/Polyp (SMALL BOWEL) Procedures: HE Stain/2, Gross/Micro L4 -------- Patient: JennyrodriguezLeigh villatoro [id number] (Continued) -------- Specimen: Received: 11/03/21 (Continued) CPT Codes 15174 -------- -------- Specimen: Received: 11/03/21 Status: YADIN Johnson Num: [id number] Spec Type: Surgical Subm Dr: Ezequiel Melo MD Tissues: A Small Intestine - Biopsy/Polyp (SMALL BOWEL) Procedures: HE Stain/2, Gross/Micro L4 -------- Patient: JuanJaclyn villatorolauren Craig [id number] (Continued) -------- Signed (signature on file) Gabe Ellis MD 11/06/21 1703 Normal [facility] SARS-CoV-2 (COVID-19) RNA OZZIE+probe Ql (Unsp spec) Negative Normal Negative [facility] Comment on above: Order Comment: Healt hcare Worker?: N Result Comment: Testing for SARS-CoV-2 by RT-PCR This test was developed and its performance characteristics determined by [employer]) and validated at the [facility]. This test has not been [...] is terminated or revoked sooner. PERFORMED BY: [place] [address] PATHOLOGIST NURSE CLINICAL SULTANA PETE M.D. Performed By: #### C OVID 19 [facility] #### [address] Coding Summaryon 04-19-2021 Coding Summary HTMLBase 64 KimqqdnnDKk3aUk+PGhlY WQ+MI2VVSHeJ40njDTplW 1PN6aZCP0HGTMZBORPQE7 YCS4haET0ARpiQ0YgskTq NpeeoFVbPG58NCp6YHW2z VuyYJeaxY1hgKAjD6y8Ou XwQG03jF59IOgtOMIvWdR 3LjZpbjsgbWFy C7zmJgXxcASyNuw+PHRhY mxlIHdpZHRoPScxMDAlJy NkpQqtWB3bUd7nJXOmCKX vbGxhcHNlOiBj z8wtNAOgZLzcIO3xqTiwG 2CbhDT9EWByt1m6Sv60oS I+DXKaMGO2hCtvIIelx59 1HyKnw2mfFYR9 pOUrCAsfQXG8S09fr1Y9S CEgKBAjIPB8oMJ5dG6bdJ hkfcndL6XjzGIjErX9AFS 5vITlrX1poQer vjohxQ4dPxu+R27RUR5RN OBVPC5MGbk1I8TeFmsnrD I+VA34GUJsIP47kCCigRS li2lrjZb5ZcQs WMMrTBV3dUgeEVyuh7MiH HIzS51tgLUka6T3SJHtkD qsaAJsOsCboCU8hE1iGQi sasilb6holqfi Xrbzr9zwmg12dB44I19mM VqfZVJlQRY1PJTbWSCihS uugc1rpK1nRv0+SNepv2g kh4rndHv5AbYe MULrjcRgdSdoXUV3b1AbW o56Y9MefYpxr3QcAoj3yd 15xMShw1M0qRO7LSsdBAP maE9zUYzeQjR9 FRKlZhTswF11iNUcOGodM o8nsArimWktYY4rDDEuai qhAAJhuH5kSKNikSPmvJq sZP3tDKMggdzv i992UsHkCZC5NAIiqUHpU 2QruW0fDcVqZFDdLLDfH4 XeyFZmMUzcP470GYxkJtT 2BUBktuSwL0Vj TVDenFidInP9n5A7Zc7Dg 9JnjlgpEAJ4ADksDUDdKb LsJsFyAdF9S0AgFkw9UEB mdTmyNQ2uN0Ek FWTaluhumuzjhIJ5GVToG VMkcI78dZJeNVmaPg0ls7 H2w572UEZuDWMzyR65Ni8 udDogMTBwdCBU zO1eesrdy9ohuqfsYrIhO DErQQl3XUd5NKGrjDioTk FvGMG5PrE9HCF0tZVwiP9 wlXgwgnhlqY8u Oyc+B60dpH5hZHK0GVB1u mluGEUlgaTlIE79MS09I5 RyPjwvdGFibGU+PGRpdiB tsBmuWU9gHrJi d1rzm2NaYDweS5FxJZClO BrlVzi7VFUiLQH6wGH1eE 9xUKYvURxph1U7dJK7S3H fhqObip6oa2ic PARmXIwdU12umQPem8I8O CTfuQZ9BRFxpGdmOiFilU 93Oyc+YKYecAtwg8VdWwa mr4sjv4iggIq8 ZkSoQGMpnaHrlBguDDO3d 2GgRe46N73eXLxsIYGdLG CgLGDxRBJkqOhemn6yrC3 wIi8+PGNvbCB3 aDU6eX9fBTQpDrT1AFdxF 650UvKfhVCdXrbla8buo5 oqwEw6ZiYyETIrahSheOm eNJY5s8ReZu41 W01xGEtzPAUjTZVkHCAyZ LGjwJxmzd3vhL9fQs3+PC 6nw7nlko00bE67xJB+PHR fPZO7tWrjNDwj SHTbhU1vJBlaKiU6FSChS hElyT90eNZgKJsaIy3woZ ykjYidGH5xEEFhfqxgj38 8FoFjx5osZUIi pNXnTVpfMLB8C16rr6S9B SEsBNCbRCM6iNG1tE8bpB lnbjogbGVmdDsgdmVydGl iQRflTZzaN246 IHRvcDsnPlBhdGllbnQgT mSzSRj6W1UzRbb1ISIqaY mjXM0hrIUaLCxlEq4xvTb ltCzhVR9mWDKn mfzmo326WoDdk1flNLAbj TRnXBnpYUG9E63qr6E9DJ AxIOTwYZI5vFN4tJ6haFm nbjogbGVmdDsg ihQdqTjbTFlnUZloI355B HRvcDsnPkJpcnRoIERhdG S1TZ79NN57lTGuw9T0mUZ 1Q5OmMGUtcvgq twyzvXE0QNGbEDCedT82Q t8tlHwtDi0jLTOkIMU0FN UyvNZxA2VwwX2vZzVcWLX uVXNnT5TckFTj BRtlR015KUihHmB1LHKdl yGfU4PvVGXnkXqnObI6l6 J0Ak1AW3U2LW58DU59hVI vj4K1aPR9L2Ej ACNkjmwsoxdmaYY1DVPgZ INseZ44Wp9noKzrKq7uQR VhKXR3KCTjhQXgT5BabA5 yOiAjMDAwMDAw U1XpzPRuIOkbW564FLbnB lV9BUPllmGwQ1AdYPApkZ wcVdO4f6U9Rt1DZTv5SZ6 7NF64yOBkv0L0 eYH3H7SmNBMihlntclhzl XX2IWQpDISbtZ46Tw4xzQ idBt0vTQYhECL2UWOkfLF wF0NylK3xHbDi IVIiETPdL3SebIBjIIqbT 871FKweErS7NXNkatGgF4 AkPVZxvKlcVxZ0u1H3Df3 LZJKyXF57TCW1 tFH2KW95DB59J4RlDopva GFibGU+PHRhYmxlIHdpZH RoPScxMDAlJyBzdHlsZT0 xSj5tOIPbCBJg eUjkyEUnQqIzi2yqEHLyO DhqYH3iyVxxC5CdxAK8OF Kqt6c8Pu04N06uX0AddWP +IAPotMU1oTG5 wS9gBcJnUmD0FFiiR773C oDarQOxFiovr0wpt4fprX u5VrA5GDImooRyqTpqWTP 7k5WjHe53P07p IHdpZHRoPSIxNSUiIHZhb Credd6cfB1sVn1+PGNvbC Z8rOT2nO5kOnOeXaM4ELh mJ033PhQgnEZs Kfahn0pip0gbdTd9AyRbW VHrzvUbdJgmTOC7y3FrGt 39J6BdmWjkj6QxLpx7zd5 1rEHux5Y5lYU0 D7IcOPIcqeberNAlyHgxP H8eMFFftlacNKHazI5vDI SsM9s6RuShIfA3HZozC4R bjgI1UJTqdSWt FQreGNF3A43po7L5VMHoZ IWaVPK2rEH9zZ6asUynvx ogbGVmdDsgdmVydGljYWw hGMcrK534KHJw lJmdCQZhtH4nNYPmfWGiv CtiDJ1nCPLkmitdKpRNWN REWSwgSEFOTkFIIEdSQUN RGF08NN31kIDg e8L9aUL2N1AqPYOqbzuvw vibnJT7CQAjENWuxU98dR OlQFeyCb8la2R1c568QHC lWCGlzK46Nj4w cElgENOobVFEaX9idntkm 3olkzlgOwNjBAFnZNy7DI z3TTBseZvjWsJlXPS3CeL 7NIZ9iWZudE4r lDwetzvzmG6wKrl+MDMvM DkvMjAwMTwvdGQ+PHRkIH O3fWmgHKyyLDMsaJ3xQUG oV4v7IeNtIvT1 WNbuF8ZxXLRwfwyqDc99g M9eOuNmBgO1FAkgB0Aaxv V0QMHzoGAeZMfrKSA2K38 dy0B4FEUqAPXp JAZ1cXD6yA6clAdrfstfk GVmdDsgdmVydGljYWwtYW wtH760RSAwjJjlAnHfLMp pEQZhKY16XW66 rKMoc2H9uIS1C2MmZVKjv lhwuksgtAR8MXDkEHFleO 55rEJsYSheGm9my6M9r23 5VECgCNVdfC93 Mu6iyEsyULHxcVBOxB0lr pkii7ipeimyAuSoUFOhKQ h7YTt3OMFlpSvdTnTsAXC 9EfR8MPX5sQQc fH2xtAbjgnjbxQ1jOyx+R dRQXHqRFU37LW43lHUwu8 T0sML6Z7KvYOZnuhgcldi gkEU3OBYgOTNw vC36nCMuEWzkVm5rf2C9x 241OMGnASQreQ17Lw4soS asKHQjxVWHnA9eahiej7p vcjogIzAwMDAw MDo3MOh0HQEagQtpGnYsA UP2IoA7WNO2aXBsvH5ntA mrixtwhR1vFhy+R2M0E5W kPjwvdHI+PC90 FUSsCV31nFCyjTDah5eaz Ge9VvJbRCVhKBM2xJmjJY rvn1EuJYNfW89rlQEhy8T 6IGNvbGxhcHNl QnXzaQG9oW2vGDgvthhjo 4qnoounDmsxp1zvkk57qG 36V71dQIkuCUQjKHFgXNA lTRDefSuyoe9j yT9qBx5+RNUayZA1vYR4b E2dPyFxXyY3MTyaG548Gz PsdLRsYigqn2ayv5idnFt 9IjIwJSIgdmFs oVfcFWB3j5QtPv23K93xZ HdpZHRoPSIyMCUiIHZhbG aeps4olD0oOf0+WL5ll3b kvo08yY53fCF+ XUIlRJM5xQlnRNhyMRAoi K5vPOwaCwE3NYQvFxAvaN 50jREcIMnuCy8ynRobyMh wPX8jTDOuowlu u789VwOfw2ndPSBwwUUoD LjkMLH9X58gp0X9ELIpQN DuCJV1qVU6uK9xwQhbkzh gbGVmdDsgdmVy aLfiVFflLUeqD368IAJyv IgqTxMesHWbQ7vpwpEXGK 1lOjwvdGQ+EWGqIRL6uOt cEQtsZOWreV5s QLFpV2s6EaRsDrD7JKtkP 9SgxwL2KFCeoHQfGCWsoP CByU6ccmjwv6rywkitQbB oHTPlZEz3SYt2 JHEmsXhjEqXyVSS8IjO8B EF4sVGsaL4rfCefymilmF 9wOyc+RklOOjwvdGQ+PHR aAAW8zDimJDnk EYTmvD2iXCDrX1w5ZzEkZ mR9TPovO3BzyrF8SRFzuF JvSWAidJQNqM1emxokl4f vcjogIzAwMDAw RZv6OBl5JEAavUclTjMsS FG8WcT0DBF4dLKisD3bpB pcutxyqK6fQmd+TVJOOjw vdGQ+PHRkIHN0 wZprHHjeZIQgbF4cRHZjB 7p8ToWcSmR8TLjfQ5Bvhf K3VCUykNPqDZBmaSVMmO4 sopmul7rvcdab UsVrIERvHUn8HJo8KJFmn VlaOyJlRQS9WwR5JAI1mO LjyQ1jcYlzoedhiH7wJfx +GID0SHI4XS06 ZR83E8MvNwzobIOlbAC+P HRhYmxlIHdpZHRoPScxMD YpSdYykKylNL3jTw5eVAZ yLWNvbGxhcHNl OiB (more content not included)... Normal [facility] Urgent Care Note- Provideron 04-06-2021 [...] and Plan Diagnosis Sprain of left foot ([id number] S93.602A, Discharge, Medical) Plan Condition: Stable. Disposition: [...] arrange follow-up as needed. Normal [facility] ED Clinical Summaryon 2020 ED Clinical Summary [facility] ? Urgent Care [address] [place] [address] Clinical Summary PERSON INFORMATION Name: LEIGH MONTOYA Age: 20 Years Sex: FEMALE : 2000 MRN: Acct#: Visit Reason: UC - Ankle/Foot/Toe Pain or Swelling; LEFT FOOT PAIN Arrival: 04/05/2021 16:12:07 Discharge: 04/05/2021 17:50:00 LOS: 000 01:38 Check In: 04/05/2021 16:12:07 Checkout: 04/05/2021 17:50:00 Address: [facility] [place] [id number] PCP: Flex Wang DO PROVIDER INFORMATION Provider Role Assigned Unassigned Monica Dunn DIRECTOR OF CARDIOPULMONARY SERVICES Nurse 04/05/2021 16:14:32 Paul Atkins PA-C ED [...] Foot Sprain Follow-Up: With: Address: When: JEFF JESUS [address] [place] [id number] Business (1) , only if needed With: Address: When: Flex Wang [address] [facility] [address] [place], [place] [id number] Business (1) Within 3 to 5 days DIAGNOSIS: Sprain of left foot Patient Understands: Yes - Patient/family/caregi nela verbalizes understanding of instructions given Comment: Normal [facility] ED Patient Summaryon 021 ED Patient Summary [facility] ? Urgent Care [address] [place], [place] [id number] PATIENT DISCHARGE INSTRUCTIONS Patient Information Name: LEIGH MONTOYA Age: 20 Years Date of : 2000 Reason For Visit: UC - Ankle/Foot/Toe Pain or Swelling; LEFT FOOT PAIN Arrival Time: 04/05/2021 16:12:07 Primary Care Physician: Flex Wang DO Attending Physician: Nirav Nunez Comment: Patient Education With: Address: When: JEFF JESUS [address], [employer] [address] [address] Business (1) , only if needed With: Address: When: Flex Wang [address] [facility], [place] [address] Business (1) Within 3 to [...] (more content not included)... Normal [facility] Urgent Care Recordon 021 Urgent Care Record [facility] ? Urgent Care [address] [facility] [place], [place] [address] PATIENT DISCHARGE INSTRUCTIONS Patient Information Name: LEIGH MONTOYA Age: 20 Years Date of : 2000 Reason For Visit: UC - Ankle/Foot/Toe Pain or Swelling; LEFT FOOT PAIN Arrival Time: 04/05/2021 16:12:07 Primary Care Physician: Flex Wang DO Attending Physician: Nirav Nunez Comment: Visit Diagnosis: Diagnoses This Visit Sprain of left foot (S93.602A) UC - Ankle/Foot/Toe Pain or Swelling ([id number]) If you received any narcotics, sedation, or [...] With: Address: When: JEFF JESUS [address] [address] Business (1) , only if needed With: Address: When: Flex Wang [address] [facility], [place] [address] Business (1) Within 3 to 5 days Medication Information: The exam and treatment you received today in the [facility] were for an urgent problem and are not intended as complete care. It is important for you to follow up with a doctor, nurse practitioner, or physician?s paperhanger assistant for ongoing care. If your symptoms [...] can reach you if necessary. [facility] Care has provided you with a complete list of medications post discharge. Please inform your primary montessori teacher/provider of your visit and for further instruction [...] no br (more content not included)... [facility] XR Foot Complete Lefton 03-20 XR [...] Vishal Fernandez 04/06/21 8:27 am Technologist: NELIDA [facility] Coding Summaryon 08-01-2020 Coding Summary HTMLBase 64 CkmdpkwmSNp5qMl+PGhlY WQ+BK2CSFYaD70qeIQrwA 0MB9uBPY0CUGAVOUXZNJ6 IWK0xdTT9VUfbM6MdzpOe QcbhgHPgJH46YXh6FWO0q IajBYshrY8ndFGjW3p8Mw EeSI82rB88XLiyYBDzFsK 3LjZpbjsgbWFy J6hxYsZykDJdNiz+PHRhY mxlIHdpZHRoPScxMDAlJy UyaDlpIZ9cPr8kFSWhZRS vbGxhcHNlOiBj t4ayJXTjEUqdTY0flQkyZ 1GuaMQ4BCFjj0v7Kp87sG I+EUKoOCQ7uMdkIGxdr77 5FiPui2ksDIY5 oJDtIRfpNFM1Y75xx7W7D MDsPPGqYXO0zVD9rN6nmS xgavrsS3ParXQgUqG0TEP 9xNNmjD1lrIcz dveusH4rOtx+G92YTB9QT SLITU4FAke1I4OpMhktcK I+WK23WBWpUV91oMNmpOP jd2rzvVe0XnPa ORAvJKW7lHqiWAzwj3GwT YEiR06vyIHsy6E5AERewO fnhXIkVcYrwWL1mP9qOJk izavma9qoiocn Ecrip2hyrm89eB89O44nE CfaPWIfEWJ3YPMhQOTqpR osue9dzS3qDz1+DCpyo1d lm2xsgTt2JlBz ODVazqUyiOlqDJC8g2NbH x80S3WxkJynf9EsTak1gq 38tJCus9C0dWB5HRnkEDT mpN7lGYkePvA6 TJFrTeVbbX66vZZkXCbuP f6lmFvmnLpmVK1qYANcff rbHHBreK8xVLZwjSFmyEt kYE0pQEKdzyko v271OtBgSJE4NCLziTNqV 3XolK6bNsCuBJLoEPKwU9 IaiNYaGVcwJ788MXkhZfP 7GAOkhiUdF0Nu ATMulRmrFfV3l6A7Ux3Qi 2PsebreACD5QOtjPDZlNs X6TkPxImK3G8KfJqz0MXT jmIvqWO8kB9Na WPGbqvzzrljrtSS4MIEsG DXgcS39gNViQNjaUi2sm3 P6m538HHJgFFEtuU87Uw7 udDogMTBwdCBU cE7laayeu6rmmsyxOyTqR CBgWSu9GMg9CLXxhTypZm KfVNQ7DsQ7XAX4pUYzuD7 qlNragrtpuU1i Oyc+K67ceL4eYSI6LEL4g qoaAXHwupDbDJ92GW63R7 RyPjwvdGFibGU+PGRpdiB fqQjbQB6cGaNz t2nqp5KgGIhoO2BdGMWsI BcnGei0KGChLWN5tMB8pI 1tKTStLQbhk7K4vAF3I3O jivMebw4au9ez SPFcWLgpQ54mhPJlr3Y6Y AXvqFU1GXHvvDgcEnAzqS 93Oyc+NJKrkWucw1YjXmh ty0zvq3gpaRw4 XpLlLUWsfnHzjHdtBTV0k 6HrDu48G84dTKgfJNQtWN UvQMNrYLYioKitla7edK0 wIi8+PGNvbCB3 tYQ4vJ6rVMBzYzE9TDmxG 962ErCwfTQvEzlvi3rqg5 twbCa8FuNfALHeneEbfOd sGMS1r5OvBn74 N53zRIdaYRYvHOBuCDSnU WXssHbsrk6khM0oGa3+PC 7un5pdee42uH93fCX+PHR kREP7aXuiGQqa TJNsdA9yROzvJiL0LWMcF qGkpY58mGQxXPlaBa3unH nqwXggQP4vPYHxktkxv98 8NtYhd1chCIQr zSZrQKqeWRW8A94qi3Q1I KJlOULaRRW4yDF7zH5btZ lnbjogbGVmdDsgdmVydGl yWRwtTDpzP095 IHRvcDsnPlBhdGllbnQgT lQnMTo0K7JiTbz4VUNaoE kbRJ9pyFWnFFpzUm8jhZu vqDnmJT4mEGHn drgdz810HuIwk3snLAHmb EEnEOyiETO5M74ii8G7DW FmXUZrOAN0tKG9lL1osEa nbjogbGVmdDsg bvYrnYnuXUjpNEsyV458O HRvcDsnPkJpcnRoIERhdG N0UM58BW07nTDcz9P3bGO 4Y6AvANFphkmp gdmguIY2VZQhBBEpjO55Z d3xeAfnGr5uIIAzCBK9YY UxkNBkO8GqzS7xWvBhQHK mZBPlD6OltVVa KXozY465TYqlPpF7YFDvv fIlH8TuBKOrxVnjGiC6p6 J8Ww1BO5Q6BJ71NR62vWV bx8X5jUC8G8Uu ZVQkxkjysafiyDK4LNYrW JKtsV96Ph2ecQcqLr2xPY IbXOB7EXDfwJUqM8PggK7 yOiAjMDAwMDAw R4ZnhZGpDViyR764GJqtB dU9ADOsciAeF8OyNHJszJ aqBpV4b9M4Jn5RDKq2BU9 8DZ78gEZgj4H0 dTF3O9JfMPSusdcppfukz CP5CSBzKZIpaL10Eq6ekP vqLg1uVZChTKK6MIJenNK lS8KyqD4vCzQo YVEnPEVlQ5XrjJGdZVdjS 942GSgaNsR9AOVgzcSdM3 PhZYEyyXndJiU0n1I2Tv6 FOBVsVT94DZR9 sXH2AN87QM33K7WyEawjf GFibGU+PHRhYmxlIHdpZH RoPScxMDAlJyBzdHlsZT0 yKq1uLPJjTMMo vFdliWItRhKtr1reFZYeW JgyMG3kzRjeW3VldHJ4CT Idl9y8Cy20B35yM3NptMY +XSKkfXU5xVJ1 eA7oMrRePhQ3XTihX421I gYglWUuTydpu1urs7fceL x9SsE9LUHlhdOivOifEZW 8m9XiYq25Y47c IHdpZHRoPSIxNSUiIHZhb Zwsyk7tmJ9bYo1+PGNvbC D2aYW7mB6uEnCaTmY1BRm zF743ZvAvpSIf Nwfrd3vhf6jkiIk1KtJkC SLbfaNxlWnuVQD8o3YuCr 99B4KpkWvvg6QdEuh7he4 3bZYah9Q1jUS9 U3OhSYGaclrfqQQtcFnxZ T6hKBLrgqauVFTlzT1kXN HuN1z8MsLyJeZ0SYboU2N utxC8HRFxdURr UBglNFF7Q71fq6C9FBFgP TQkAJA0aNN8wM8xbHdijc ogbGVmdDsgdmVydGljYWw cCOvbH558UZYq cZvaPKKfjX3zOSYjsKIao JmgJR3rTMNonfjpUyJEYQ REWSwgSEFOTkFIIEdSQUN IWH04VX29jUSt r6Z8gPP0Y4GeDDZldlpwp rztbJU8KBHuLAZbsE23zJ ZdLEzvQb7zt0J6q503JGC iOTWxgX88Ls0q gVikTBYvvHZYoF9gxfhji 3vjwhklMwRsVAMjEJj5XT t3TNYdgFpdRlUxEXR3UzR 7TJO0eEDfaY5x gNrfwycelY7kMnt+MDMvM DkvMjAwMTwvdGQ+PHRkIH N0yNakJKheAIDwnT6sEFV fI4m1FcTyIfL2 QDuiA9DpXTOctjlvWs08n R4zDaFaYlD1PJhdG4Nwii U5EMJwgDHhSFtyUYI9R73 wp8P5HZLeRMXs JLI9xLP8uO8wiEqvocwmo GVmdDsgdmVydGljYWwtYW xyO756ZQSfmSywLgLlLCe pOZMpOE92NU26 fLZxx8L5cGV5L3RwZJLjy ipwzglkwVL4TGFqTEDhtB 29aDQrBUjtJu2vy5A6w68 8RDQnXQJnfO29 Vs3qrRmbRNSlyPOYjX7em ykwx9wslgxmJgRuXCUwWL y5WEg7DBBnaHxgWhSuMVA 7AsP6TMP9dQKa rK8czBiibyqpyT4tRch+R wKBSNcVFQ58AY50pBOnu1 R9fYS1C0ZvXNFsyjsfniy ruWV3PAUgVCNt mB67uSNeUWizZc7fy8Q3d 376URPpFHTzwI94Id5wqA owLXBwuHRFaJ2zeukfd4f vcjogIzAwMDAw MWj2RFm6PHRbdWwlEuJlA YG7WxW9YNF0kFCyqR4bcF jiaimicD1xIcd+A6N5I1J kPjwvdHI+PC90 VSAfFD88sPSksTBhc1ojy Va0ZjXpURPrTHJ5xTsfLZ xle5BqNZNvS35gjFOle6I 6IGNvbGxhcHNl KmXauTH1eH0nSQwjzwzwf 8owphvrOltwy0faft59sE 16C06jZDjsBEYeJRUdLMA eDQKyoKoxpg4y oE5kGj2+HBCflDO7hHZ7w Q5iIbPcLdE3TQlsM327St CckXZnGyqok5ifu1annMk 9IjIwJSIgdmFs tXuoVQU0k9OxOz59S27mO HdpZHRoPSIyMCUiIHZhbG icsh4lvH6bTm4+QH7ds6x eil66yX89iWB+ CJYyRVT7zCwhKKwfAOSzr O4iMWfeJqF8UTCgImWroB 55oUDfGAqcJi6nxFqjoGc cVZ3yOIYooepx w974QjGtj9qwEOOgbKBzG HmfRBT8J70zl5C0TKCsPF UiWKR7pSV7kN4eoXbjrcc gbGVmdDsgdmVy mZzzRSjgCIpbF458DFPdx QodMoIklXRlY8lacpNRVU 1lOjwvdGQ+OMTkZRY0oUh cYNwdJAIldF3a RGJpM8o3GqPtUgZ0JFirH 8UlfxV4KTCdoVEkOPAfaB BTjU2rcnych0pigleuUtX mXQDsQCb1ICf3 LXBxiZjwIiSzLUJ5HxZ2D JS5vANkjQ9xgQhbqlcpqE 9wOyc+RklOOjwvdGQ+PHR oQII0zRenSPdi EAOrwR9tLQNuE0x0SrQhG yC8UBzvQ6XrccL2LNNhdG VlVQZcyLNTkK1dlqdgc5w vcjogIzAwMDAw IQa4YNj7ILOprMsoKgCaJ BO3MvC5PCB2cOIdqM7sqP frjajrnV8vQdz+TVJOOjw vdGQ+PHRkIHN0 cMomIRubBAHpnO1tWFPjP 6z0MeBrEeH8RRwrM4Nxgf K0WXDnsUOqCZJcxUVBcY9 qldfoz5nlqtdz KzHzXBGoLCp0NWr5AONip IzaUuJzWSK4PbE0TUQ4rN QhxB0xmXdtcpllrL9vIns +UMG8HDF9YQ64 JL14J3CzIjrpaMWkpYI+P HRhYmxlIHdpZHRoPScxMD DuZnYvyNlvUR8nGq9rWKL yLWNvbGxhcHNl OiB (more content not included)... Normal [facility] C Throaton 07-31-2020 C Throat Ordered by Discern. Normal throat regi isolated No pathogens isolated Normal [facility] Comment on above: Performed By: #### [id number] ####[facility] (DEFAULT)[address] [place] [address] ED Clinical Summaryon 2020 ED Clinical Summary [facility] ? Urgent Care [address] [place] [address] Clinical Summary PERSON INFORMATION Name: LEIGH MONTOYA Age: 20 Years Sex: FEMALE : 2000 MRN: Acct#: Visit Reason: UC - Sore Throat; THROAT PAIN Arrival: 07/29/2020 09:44:22 Discharge: 07/29/2020 10:23:00 LOS: 000 00:39 Check In: 07/29/2020 09:44:22 Checkout: 07/29/2020 10:23:00 Address: [address] [place] [address] PCP: Flex Wang DO PROVIDER INFORMATION Provider [...] Negative . Impression and Plan Diagnosis Pharyngitis ([id number]-HK J02.9, Discharge, Medical) Plan Condition: Stable. Disposition: Discharged: Time 07/29/2020 10:17:00 (more content not included)... Normal [facility] ED Note - Provideron 021 [...] Negative . Impression and Plan Diagnosis Pharyngitis ([id number] J02.9, Discharge, Medical) Plan Condition: Stable. Disposition: Discharged: Time 07/29/2020 10:17:00, to home. Patient was given the following educational materials: Pharyngitis, Atxr-fg-Harz, Pharyngitis, Jkot-oy-Spqt. Follow up with: Flex Wang Within 2 [...] EST] Patricia Meeks PA-C Normal [facility] ED Patient Summaryon 021 ED Patient Summary [facility] ? Urgent Care [address] [place], [place] [id number] PATIENT DISCHARGE INSTRUCTIONS Patient Information Name: LEIGH MONTOYA Age: 20 Years Date of : 2000 [facility]: [id number] Reason For Visit: UC - Sore Throat; THROAT PAIN Arrival Time: 07/29/2020 09:44:22 Primary Care Physician: Flex Wang DO Attending Physician: Patricia Meeks PA-C Comment: Patient Education With: Address: When: Flex Wang [address] [facility], [address] [place] [id number] Business (1) Within 2 to 4 days [...] Follow these instructions at home: ? Take [id number] and prescription medicines only as told by [...] 10/22/2008 Document Revised: 04/18/2018 Document Reviewed: 06/11/2017 [employer] [facility] Patient Education ? 2020 [employer]. Medication Information: The exam and treatment you received today in the [facility] Emergency Department were for an urgent problem and are not intended as complete care. It is important for you to follow up with a doctor, nurse practitioner, or physician?s paperhanger assistant for ongoing care. If your symptoms [...] can reach you if necessary. [facility] Emergency Department has provided you with a complete list of medications post discharge. Please inform your primary montessori teacher/provider of your visit and for further instruction [...] (more content not included)... Normal [facility] Strep Aon 07-29-2020 Strep procedure control Pass Normal [facility] Comment on above: Performed By: #### [id number] ####[facility] (DEFAULT)[address] [place] [id number] Streptococcus A Negative Normal Negative [facility] Comment on above: Performed By: #### 6 [id number], [id number] ####[facility] (DEFAULT)[address] [place] [address] 13633 Urgent Care Recordon 021 Urgent Care Record [facility] ? Urgent Care [address] [place] [address] PATIENT DISCHARGE INSTRUCTIONS Patient Information Name: LEIGH MONTOYA Age: 20 Years Date of : 2000 Reason For Visit: UC - Sore Throat; THROAT PAIN Arrival Time: 07/29/2020 09:44:22 Primary Care Physician: Flex Wang DO Attending Physician: Patricia Meeks PA-C Comment: Visit Diagnosis: Diagnoses This Visit Pharyngitis (J02.9) UC - Sore Throat ([id number]) If you received any narcotics, sedation, or [...] Address: When: Flex Wang [address] [facility], [address] [place] [id number] Business (1) Within 2 to 4 days [...] and treatment you received today in the [facility] were for an urgent problem and are not intended as complete care. It is important for you to follow up with a doctor, nurse practitioner, or physician?s paperhanger assistant for ongoing care. If your symptoms [...] can reach you if necessary. [facility] Urgent Care has provided you with a complete list of medications post discharge. Please inform your primary montessori teacher/provider of your visit and for further instruction [...] Follow these instructions at home: ? Take tjoz-gzo-yymkrpg and prescription medicines only as told by [...] help righ (more content not included)... Normal [facility] Coding Summaryon 06-27-2020 Coding Summary CODING DATE: 06/27/2020 [facility] STATUS: Home PAYOR: Commercial Insurance [...] Padilla Date Saved: 06/27/2020 12:37 pm [facility] ED Clinical Summaryon 2020 ED Clinical Summary [facility] ? Urgent Care [address] [place] [address]17 Clinical Summary PERSON INFORMATION Name: LEIGH MONTOYA Age: 19 Years Sex: FEMALE : 2000 MRN: Acct#: Visit Reason: UC - Ear Pain; UC - Ear Pain; RIGHT EAR PAIN Arrival: 06/18/2020 15:00:59 Discharge: 06/18/2020 15:27:00 LOS: 000 00:27 Check In: 06/18/2020 15:00:59 Checkout: 06/18/2020 15:27:00 Address: [address] [place], [place] [id number] PCP: Flex Wang DO PROVIDER INFORMATION Provider Role Assigned Unassigned Monica Dunn DIRECTOR OF CARDIOPULMONARY SERVICES Nurse 06/18/2020 15:03:15 Alessandro PA, Marv ED PA 06/18/2020 15:03:24 VITALS INFORMATION Vital Sign Triage Latest Temperature Tympanic Temperature Temporal Artery Pulse Rate O2 Sat 98 % 98 % Respiratory Rate Blood Pressure /78 mmHg /78 mmHg MEDICAL INFORMATION Medications Given: Allergy Information: sulfamethoxazole; ibuprofen PHYSICIAN DOCUMENTATION DISCHARGE INFORMATION: Discharge Disposition: Home Discharge Location: Home PATIENT EDUCATION INFORMATION Instructions: Otitis Media, Adult, Pbaj-rd-Dkto Follow-Up: With: Address: When: Flex Wang [address] [facility] [place] [address] Business (1) Comments: Begin on the amoxicillin-clavulana te antibiotic take every 12 hours for the next 10 days Follow-up with your primary care physician in 3-5 days for reevaluation, sooner if any worsening symptoms DIAGNOSIS: Otitis media, right Patient Understands: Yes - Patient/family/caregi nela verbalizes understanding of instructions given Comment: [facility] ED Patient Summaryon 021 ED Patient Summary [facility] ? Urgent Care [address] [place] [address] PATIENT DISCHARGE INSTRUCTIONS Patient Information Name: LEIGH MONTOYA Age: 19 Years Date of : 2000 [facility]: [id number] Reason For Visit: UC - Ear Pain; UC - Ear Pain; RIGHT EAR PAIN Arrival Time: 06/18/2020 15:00:59 Primary Care Physician: Flex Wang DO Attending Physician: Marv Shannon Comment: Patient Education With: Address: When: Flex Wang [address] [facility], [address] [place] [phone] Business (1) Comments: Begin on the amoxicillin-clavulana [...] Follow these instructions at home: ? Take tiqx-vae-wxsbfkg and prescription medicines only as told by [...] 10/22/2008 Document Revised: 04/18/2018 Document Reviewed: 05/27/2017 [employer] Patient Education ? 2020 [employer]. Medication Information: The exam and treatment you received today in the [facility] Emergency Department were for an urgent problem and are not intended as complete care. It is important for you to follow up with a doctor, nurse practitioner, or physician?s paperhanger assistant for ongoing care. If your symptoms [...] can reach you if necessary. [facility] Emergency Department has provided you with a complete list of medications post discharge. Please inform your primary montessori teacher/provider of your visit and for further instruction on these medications. Any specific questions regarding your chronic medications and dosages should be discussed with your primary care physician(s) and/or pharmacist. New Medications [id number], [address] [place] [id number], [phone] amoxicillin-clavulana te (Augmentin 500 mg-125 mg oral [...] media, right (H66.91) UC - Ear Pain ([id number]) UC - Ear Pain ([id number]) If you received any narcotics, sedation, or any other medication that causes drowsiness for the next 24 hours, unless otherwise directed: ? Do not drive a car. ? Do not operate machinery such as power tools, lawn mowers, drills, sewing machines, or stoves ? Avoid alcoholic beverages and drugs for allergies, n (more content not included)... Normal [facility] Urgent Care Note- Provideron 06-18-2020 [...] Impression and Plan Diagnosis Otitis media, right ([id number] H66.91, Discharge, Medical) Plan Prescriptions: Launch prescriptions Pharmacy: Augmentin 500 mg-125 mg oral tablet (Prescribe): 1 tab(s), PO, q12hr, for 10 day(s), 20 tab(s), 0 Refill(s). Patient was given the following educational materials: Otitis Media, Adult, Mdtz-sv-Arrh. Follow up with: Flex Wang Begin on the amoxicillin-clavulana te antibiotic take every 12 hours for the next 10 days Follow-up with your primary care physician in 3-5 days for reevaluation, sooner if any worsening symptoms. Counseled: Patient, Regarding diagnosis, Regarding diagnostic results, Regarding treatment plan, Regarding prescription, Patient indicated understanding of instructions. Normal [facility] Urgent Care Recordon 01-30-2 021 Urgent Care Record [facility] ? Urgent Care [address] [facility] [place] [address] PATIENT DISCHARGE INSTRUCTIONS Patient Information Name: LEIGH MONTOYA Age: 19 Years Date of : 2000 Reason For Visit: UC - Ear Pain; UC - Ear Pain; RIGHT EAR PAIN Arrival Time: 06/18/2020 15:00:59 Primary Care Physician: Flex Wang DO Attending Physician: Marv Shannon Comment: Visit Diagnosis: Diagnoses This Visit Otitis media, right (H66.91) UC - Ear Pain ([id number]) UC - Ear Pain ([id number]) If you received any narcotics, sedation, or [...] Address: When: Flex Wang [address] [facility], [place] [address] Business (1) Comments: Begin on the amoxicillin-clavulana te antibiotic take every 12 hours for the next 10 days Follow-up with your primary care physician in 3-5 days for reevaluation, sooner if any worsening symptoms Medication Information: The exam and treatment you received today in the [facility] were for an urgent problem and are not intended as complete care. It is important for you to follow up with a doctor, nurse practitioner, or physician?s paperhanger assistant for ongoing care. If your symptoms [...] can reach you if necessary. [facility] Urgent Care has provided you with a complete list of medications post discharge. Please inform your primary montessori teacher/provider of your visit and for further instruction on these medications. Any specific questions regarding your chronic medications and dosages should be discussed with your primary care physician(s) and/or pharmacist. New Medications [facility], [address] [place], [place] [id number], [phone] amoxicillin-clavulana te (Augmentin 500 mg-125 mg oral [...] Follow these instructions at home: ? Take wrkh-yzu-katuaws and prescription medicines only as told by [...] ? You (more content not included)... [facility] Consent Formson 04-28-2020 Consent Forms [id number] [facility]-28-2020 Provider Orders [id number] 04-25-2020 Coding Summary CODING DATE: 04/25/2020 [facility] STATUS: Home PAYOR: Commercial Insurance [...] Padilla Date Saved: 04/25/2020 02:38 pm [facility] .QC Respiratory Panel 2.1 (B ioFire)on 04-22-2020 Internal Control-Resp Panel 2.1(BioFire) Pass [facility] Comment on above: Order Comment: Order ed by Holley.[[id number]] Performed By: #### 6 [id number], [id number] ####[facility] (DEFAULT)[address] [place] [address] Respiratory Panel 2.1 (BioFi re)on 04-22-2020 Adenovirus -BioFire Not detected Normal Not Detected [facility] Comment on above: Performed By: #### 6 [id number], [id number] ####[facility] (DEFAULT)[address] [place] [address]4080 Bordetella parapertussis -BioFire Not detected Normal Not Detected [facility] Comment on above: Performed By: #### 6 [id number], [id number] ####[facility] (DEFAULT)[address] [place] [address] 12521 Bordetella pertussis -BioFire Not detected Normal Not Detected [facility] Comment on above: Performed By: #### 6 [id number], [id number] ####[facility] (DEFAULT)[address] [place] [address] 32988 Chlamydia pneumoniae -BioFire Not detected Normal Not Detected [facility] Comment on above: Performed By: #### 6 [id number], [id number] ####[facility] (DEFAULT)[address] [place] [address] 35104 Coronavirus 229E (Not COVID-19) -BioFire Not detected Normal Not Detected [facility] Comment on above: Performed By: #### 6 [id number], [id number] ####[facility] (DEFAULT)[address] [place] [address] 72405 Coronavirus HKU1 (Not COVID-19) -BioFire Not detected Normal Not Detected [facility] Comment on above: Performed By: #### 6 [id number], [id number] ####[facility] (DEFAULT)[address] [place] [address] 44215 Coronavirus NL63 (Not COVID-19) -BioFire Not detected Normal Not Detected [facility] Comment on above: Performed By: #### 6 [id number], [id number] ####[facility] (DEFAULT)[address] [place] [address] 17109 Coronavirus OC43 (Not COVID-19) -BioFire Not detected Normal Not Detected [facility] Comment on above: Performed By: #### 6 [id number], [id number] ####[facility] (DEFAULT)[address] [place] [address]235 Employed in healthcare? No Invalid Interpretation Code [facility] Comment on above: Performed By: #### 6 [id number], [id number] ####[facility] (DEFAULT)[address] [place] [address] 42680 Group care resident? No Invalid Interpretation Code [facility] Comment on above: Performed By: #### 6 [id number], [id number] ####[facility] (DEFAULT)[address] [place] [address] 23631 Human Metapneumovirus -BioFire Not detected Normal Not Detected [facility] Comment on above: Performed By: #### 6 [id number], [id number] ####[facility] (DEFAULT)[address] [place] [address] 40975 Human Rhinovirus/Enterovir us -BioFire Not detected Normal Not Detected [facility] Comment on above: Performed By: #### 6 [id number], [id number] ####[facility] (DEFAULT)[address] [place] [address] 00452 In ICU? No Invalid Interpretation Code [facility] Comment on above: Performed By: #### 6 [id number], [id number] ####[facility] (DEFAULT)[address] [place] [address] 46142 Influenza A (no subtype) -BioFire Not detected Normal Not Detected [facility] Comment on above: Performed By: #### 6 [id number], [id number] ####[facility] (DEFAULT)[address] [place] [address] 26699 Influenza A -BioFire Not detected Normal Not Detected [facility] Comment on above: Performed By: #### 6 [id number], [id number] ####[facility] (DEFAULT)[address] [place] [address] 50142 Influenza A H1 -BioFire Not detected Normal Not Detected [facility] Comment on above: Performed By: #### 6 [id number], [id number] ####[facility] (DEFAULT)[address] [place] [address] 89234 Influenza A H1-2009 -BioFire Not detected Normal Not Detected [facility] Comment on above: Performed By: #### 6 [id number], [id number] ####[facility] (DEFAULT)[address] [place] [address] 92349 Influenza A H3 -BioFire Not detected Normal Not Detected [facility] Comment on above: Performed By: #### 6 [id number], [id number] ####[facility] (DEFAULT)[address] [place] [address] Influenza B -BioFire Not detected Normal Not Detected [facility] Comment on above: Performed By: #### 6 [id number], [id number] ####[facility] (DEFAULT)[address] [place] [address] Mycoplasma pneumoniae -BioFire Not detected Normal Not Detected [facility] Comment on above: Performed By: #### 6 [id number], [id number] ####[facility] (DEFAULT)[address] [place] [address] Parainfluenza Virus 1 -BioFire Not detected Normal Not Detected [facility] Comment on above: Performed By: #### 6 [id number], [id number] ####[facility] (DEFAULT)[address] [place] [address] Parainfluenza Virus 2 -BioFire Not detected Normal Not Detected [facility] Comment on above: Performed By: #### 6 [id number], [id number] ####[facility] (DEFAULT)[address] [place] [address] 95436 Parainfluenza Virus 3 -BioFire Not detected Normal Not Detected [facility] Comment on above: Performed By: #### 6 [id number], [id number] ####[facility] (DEFAULT)[address] [place] [address] 28122 Parainfluenza Virus 4 -BioFire Not detected Normal Not Detected [facility] Comment on above: Performed By: #### 6 [id number], [id number] ####[facility] (DEFAULT)[address] [place] [address] 12339 status? Not Invalid Interpretation Code [facility] Comment on above: Performed By: #### 6 [id number], [id number] ####[facility] (DEFAULT)[address] [place] [address] Respiratory Syncytial Virus -BioFire Not detected Normal Not Detected [facility] Comment on above: Performed By: #### 6 [id number], [id number] ####[facility] (DEFAULT)[address] [place] [address] SARS-CoV-2 (COVID-19) RNA OZZIE+probe Ql (Unsp spec) Not detected Normal Not Detected [facility] Comment on above: Performed By: #### 6 [id number], [id number] ####[facility] (DEFAULT)[address] [place] [address] SARS-CoV-2 (COVID-19) RNA OZZIE+probe Ql (Unsp spec) No Invalid Interpretation Code [facility] Comment on above: Performed By: #### 6 [id number], [id number] ####[facility] (DEFAULT)[address] [place] [address] Symptomatic as defined by CDC? No Invalid Interpretation Code [facility] Comment on above: Performed By: #### 6 [id number], [id number] ####[facility] (DEFAULT)[address] [place] [address] Vital Signs Date Time Vital Sign Value Performing Clinician Facility 12-06-2021 16:30-0400 Body height 160.02 cm Ezequiel Melo Other [facility] Other 12-06-2021 16:30-0400 Body mass index (BMI) [Ratio] 41.62 kg/m2 Ezequiel Melo Other [facility] Other 12-06-2021 16:30-0400 Body weight 106.6 kg Ezequiel Melo Other [facility] Other 10-11-2021 14:45-0400 Body height 160.02 cm Ezequiel Dijessie Other [facility] Other 10-11-2021 14:45-0400 Body mass index (BMI) [Ratio] 41.98 kg/m2 Ezequiel Adamsjessie Other [facility] Other 10-11-2021 14:45-0400 Body weight 107.5 kg Ezequiel Melo Other [facility] Other 10-11-2021 14:45-0400 Diastolic blood pressure 79 mm[Hg] Ezequiel Melo Other [facility] Other 10-11-2021 14:45-0400 Systolic blood pressure 128 mm[Hg] Ezequiel Melo Other [facility] Other Encounters Encounter Date Encounter Type Care Provider Facility Start: 01-29-2024 End: 01-29-2024 ambulatory YASMINE JAI Not Available Start: 01-16-2024 End: 01-16-2024 ambulatory MIRIAM MARLEEN Not Available Start: 01-02-2024 End: 01-02-2024 ambulatory YASMINE JAI Not Available Start: 12-17-2023 End: 12-17-2023 ambulatory MIRIAM MARLEEN Not Available Start: 12-03-2023 End: 12-03-2023 ambulatory YASMINE JAI Not Available Start: 11-07-2023 End: 11-07-2023 ambulatory YASMINE JAI Not Available Start: 10-31-2023 End: 10-31-2023 ambulatory YASMINE JAI Not Available Start: 08-12-2023 End: 08-12-2023 ambulatory YASMINE JAI Not Available Start: 08-29-2022 End: 08-29-[address] [facility]ANDA [facility] Facility:H1 Start: 01-12-2022 End: 01-16-[address] MIRANDA [facility] Facility:H1 Start: 12-06-2021 End: 12-06-2021 ambulatory Ezequiel Melo Other [facility] Other Start: 12-06-2021 Patient encounter procedure Ezequiel Melo [facility] Start: 10-11-2021 End: 10-11-2021 ambulatory Ezequiel Melo Other [facility] Other Start: 10-11-2021 [facility] visit new patient Ezequiel Melo [facility] Payers Date Payer Category Payer Unknown [id number] 2000 Unknown [id number] 2.16.84 [id number] 2000 Unknown [id number] 2.16.84 [id number] 2000 Unknown [id number] 2.16.84 0.1.196305.3.579.2.9 2000 Unknown [id number] 2.16.84 0.1.352084.3.579.2.1259 2000 Unknown [id number] 2.16.84 0.1.016923.3.579.2.9 2000 Unknown [id number] 2.16.84 0.1.221790.3.579.2.9 2000 Unknown [id number] 2.16.84 0.1.941172.3.579.2.9 2000 Unknown [id number] 2.16.84 0.1.726517.3.579.2.1259 2000 Unknown [id number] 2.16.84 0.1.261610.3.579.2.9 2000 Unknown [id number] 2.16.84 0.1.813024.3.579.2.1259 1959 Unknown [id number] Medicaid [id number] . [id number] Social History Date Type Detail Facility Sex Assigned At [facility] Other Evaluation note 12-06-2021 Note Date & Type Note Facility 12-06-2021 Evaluation note Encounter Date Diagnosis Assessment Notes Nov, Dyspepsia (ICD-10 - K30) patient states does have some bloating in the left center she does have pain noted. patient is advised that we can start levsin and refer to exchange clerk for food testing. [facility] Other Evaluation note 10-11-2021 Note Date & Type Note Facility 10-11-2021 Evaluation note Encounter Date Diagnosis Assessment Notes September, Bloating (ICD-10 - R14.0) September, Dyspepsia (ICD-10 - K30) September, Abdominal pain (ICD-10 - R10.9) [facility] Other Clinical Note 04-05-2021 Note Date & [...] This may take several hours. ? Take afhw-zmp-qyzcjhv and prescription medicines only as told by your health care provider. ? When you can walk without pain, wear supportive shoes that have stiff soles. Do not wear flip-flops, and do not walk barefoot. ? Keep all follow-up visits as told by your health care provider. This is important. Contact a health care provide (more content not included)... [facility] Clinical Note 07-29-2020 Note Date & Type Note Facility 07-29-2020 Note Patient Education Ma terials Follows:Disease Pharyngitis Pharyngitis is a sore throat (pharynx). This is when there is redness, pain, and swelling in your throat. Most of the time, this condition gets better on its own. In some cases, you may need medicine. Follow these instructions at home: ? Take ioye-vfh-rdoeobd and prescription medicines only as told by [...] Reviewed: 06/11/2017 [employer] Patient Education ? 2019 [employer]. [facility] Clinical Note 06-18-2020 Note Date & Type Note Facility 06-18-2020 Note Patient Education Ma terials Follows: Otitis Media, Adult Otitis media means that the middle ear is red and swollen (inflamed) and full of fluid. The condition usually goes away on its own. Follow these instructions at home: ? Take qhml-slv-tnexnwf and prescription medicines only as told by [...] 10/22/2008 Document Revised: 04/18/2018 Document Reviewed: 05/27/2017 [employer] Patient Education ? 2019 [employer]. [facility] Clinical Note 04-22-2020 Note Date & Type Note Facility 04-22-2020 Note Nasal swab performed without complication. Patient tolerated well. Education given. Patient verbalized understanding. [Electronically Signed on: 04/22/2020 15:05 EST] Miri Nuñez RN [Verified on: 04/22/2020 15:05 EST] Miri Nuñez RN [facility] History general Narrative - Reported Note Date & Type Note Facility History general Narrative - Reported Type Medical History PCOS Medical History Endometriosis Surgical History laparoscopy - endometriosis [facility] Other Reason for referral (narrative) Note Date & Type Note Facility Reason for referral (narrative) Diagnosis 1 Dyspepsia (K30) Referral Organization [facility] Referring Provider First Name Ezequiel Referring Provider Last Name Angiejessie Referring Provider Specialty Gastroenter ology Referred Organization Unknown Facility Referred Provider Kenyon Alvarez Referred Provider Specialty Allergy/Immu nology Referral Priority Routine General Notes Terri Gunderson 022 03:45:51 PM > patient insurance will be new on 01/02/2022 if she is able to get in before this. [facility] Other Reason for visit Narrative Note Date & Type Note Facility Reason for visit Narrative PATIENT HERE AT THE REQUEST OF DR. VERGARA FOR EVALUATION & TREATMENT OF BLOATING [facility] Other Reason for visit Narrative Note Date [...] of the side effects that were listed. [facility] Other Summary Purpose Family History No Family History Records FoundNo Family History Records FoundNo Family History Records FoundNo Family History Records Found Advance Directives No Advanced Directives Records FoundNo Advanced Directives Records FoundNo Advanced Directives Records FoundNo Advanced Directives Records Found Additional Source Comments INFORMATION SOURCE (unrecogn ized section and content) DATE CREATED AUTHOR 04/21/2021 [facility] DATE CREATED AUTHOR AUTHOR'S ORGANIZ ATION 11/08/2021 [facility] DATE CREATED AUTHOR AUTHOR'S ORGANIZ ATION 09/06/2022 [facility] DATE CREATED AUTHOR AUTHOR'S ORGANIZ ATION 01/31/2024 [facility] EPIC FOR RECORDS PERTAINING TO [...] BE BASED ON THE PRIMARY CLINICAL RECORDS. [facility] provides no warranty or guarantee of the accuracy or completeness of information in this document.
[2024-02-03 18:18] VITALS: BP 123/75; PULSE 108
== END 2024-02-03 18:46 | disposition home or self-care (01) ==
LOC: FBCO 08:33 → FBC 18:01
PROVIDERS: Visit Provider Obstetrics & Gynecology
DX: O26.893 Other specified pregnancy related conditions, third trimester (principal)
CPT/HCPCS: 59025

== ENCOUNTER 2024-02-06 07:06 | Outpatient (OUT) | payer OTHER, SELFPAY ==
--- OUTSIDE RECORDS SUMMARY | 2024-02-06 07:09 | XMS_ITS | CCD ---
Author Organization [facility] Care Team Providers Care Brewer Helper Name Role Phone Ezequiel Melo Unavailable [facility] [place] MIRANDA Primary Care Unavailable JAI ., [...] Reaction(s) Facility (2 sources) Sulfacetamide Drug Allergy [facility] Distractify Other (1 source) Sulfonamides (Antibiotic) Drug allergy (disorder) [facility] Repository Medications Current Medications Medication Drug [...] 21 to 29on 09-06-2022 . . Normal [facility] Comment on above: Performed By: #### 4 [id number] #### [facility] [address] [place] [address] Dr. aDt Wesley Age Gdln ACOG Testing 21- Normal [facility] Comment on above: Performed By: #### 4 [id number] #### [facility] [address] [place] [address] Dr. Dat Wesley DIAGNOSIS: Comment Normal [facility] Comment on above: Result Comment: NEGA TIVE FOR INTRAEPITHELIAL LESION OR MALIGNANCY. Performed By: #### 4 [id number] #### [facility] [address] [place] [address] Dr. Dat Wesley Methodology: Comment Normal [facility] Comment on above: Result Comment: This liquid based ThinPrep(R) pap test was screened with the use of an image guided system. Performed By: #### 4 [id number] #### [facility] [address] [place] [address] Dr. Dat Wesley Note: Comment Normal [facility] Comment on above: Result Comment: The Pap smear is a screening test designed to aid in the detection of premalignant and malignant conditions of the uterine cervix. It is not a diagnostic procedure and should not be used as the sole means of detecting cervical cancer. Both false-positive and false-negative reports do occur. . Performed By: #### 4 [id number] #### [facility] [address] [place] [address] Dr. Dta Wesley Performed by: Comment Normal [facility] Comment on above: Result Comment: Singh Sanders Business Development Sales Executive (ASCP) Performed By: #### 4 [id number] #### [facility] [address] [place] [address] Dr. Dat Wesley Reflex Criteria: Comment Normal [facility] Comment on above: Result Comment: The HPV DNA reflex criteria were not met with this specimen result therefore, no HPV testing was performed. . Performed By: #### 4 [id number] #### [facility] [address] [place] [address] Dr. Dat Wesley Specimen adequacy: Comment Normal [facility] Comment on above: Result Comment: Sati sfactory for evaluation. Endocervical and/or squamous metaplastic cells (endocervical component) are present. Performed By: #### 4 [id number] #### [facility] [address] [place] [address] Dr. Dat Wesley HCG,Urineon 11-03-2021 Beta HCG ( test) Ql (U) Negative Normal [facility] Comment on above: Result Comment: PERF ORMED BY: [address] [place] [id number] PATHOLOGIST INTERVENTIONAL RADIOLOGY TECHNOLOGIST SULTANA PETE M.D. Performed By: #### U HCG #### [place] [id number] [facility] 11-03-2021 L - -------- Specimen: [id number] Received: 11/03/21 Status: AYDIN Johnson Num: [id number] Spec Type: Surgical Subm Dr: Ezequiel Melo MD Tissues: A Small Intestine - Biopsy/Polyp (SMALL BOWEL) Procedures: HE Stain/2, Gross/Micro L4 -------- Patient Age/Sex Location Account Attending Physician -------- Leigh Singh / [id number] Ezequiel Melo MD -------- SPEC NUM: [id number] RECD: 11/03/21 STATUS: AYDIN TRANG NUM: [id number] PAPI: 11/03/21 [facility] DR: Ezequiel Melo MD ENTERED: 11/03/21 [facility] DR: SPEC TYPE: Surgical DEPT: S ORDERED: [...] is performed. This case is interpreted at [facility], [place], [place] -------- Specimen: Received: 11/03/21 Status: AYDIN Johnson Num: [id number] Spec Type: Surgical Subm Dr: Ezequiel Melo MD Tissues: A Small Intestine - Biopsy/Polyp (SMALL BOWEL) Procedures: HE Stain/2, Gross/Micro L4 -------- Patient: Leigh Singh [id number] (Continued) -------- Specimen: [id number] Received: 11/03/21 (Continued) Signed (signature on file) Gabe Ellis MD 11/06/21 1703 -------- Specimen: Received: 11/03/21 Status: RAFAELChino Johnson Num: [id number] Spec Type: Surgical Subm Dr: Ezequiel Melo MD Tissues: A Small Intestine - Biopsy/Polyp (SMALL BOWEL) Procedures: HE Stain/2, Gross/Micro L4 -------- Patient: JennyrodriguezLeigh villatoro [id number] (Continued) -------- Specimen: Received: 11/03/21 (Continued) CPT Codes 77059 -------- -------- Specimen: Received: 11/03/21 Status: AYDIN Johnson Num: [id number] Spec Type: Surgical Subm Dr: Ezequiel Melo MD Tissues: A Small Intestine - Biopsy/Polyp (SMALL BOWEL) Procedures: HE Stain/2, Gross/Micro L4 -------- Patient: JuanJaclyn villatorolauren Craig [id number] (Continued) -------- Signed (signature on file) Gabe Ellis MD 11/06/21 1703 Normal [facility] SARS-CoV-2 (COVID-19) RNA OZZIE+probe Ql (Unsp spec) Negative Normal Negative [facility] Comment on above: Order Comment: Healt hcare Worker?: N Result Comment: Testing for SARS-CoV-2 by RT-PCR This test was developed and its performance characteristics determined by [employer] and validated at the [facility]. This test has not been FDA cleared [...] is terminated or revoked sooner. PERFORMED BY: [place] [address] PATHOLOGIST INTERVENTIONAL RADIOLOGY TECHNOLOGIST SULTANA PETE M.D. Performed By: #### C OVID 19 [facility] #### [address] Coding Summaryon 04-19-2021 Coding Summary HTMLBase 64 XiqkvfseBCe5gBn+PGhlY WQ+RB7ATCKbP04lyWEopT 5NO6yFED6QTDPBFXTQZK3 LHF4csMF6IDshI9McyuHf AvvvvLRjAY74ZPo6RNP8r LvkKGyauN6cyGJzW8v8Hx JqLT88wF68RItmOGKhYvV 3LjZpbjsgbWFy H2vmDyPkyATkQou+PHRhY mxlIHdpZHRoPScxMDAlJy JdzUsdEN9bEz0dWDSrNGW vbGxhcHNlOiBj d1reOLUfEFlhPS1lhHwdI 8CfgZD2UFUdx2g9Bl73bG I+NXRuPAS8hUqsZTiwh65 9NaYrl5qbNYR0 yDExWShpSQH5T17yr9F9Y VBcKQGzXVO0yBG4sM3hfK zybnnfE5UciLMyIhP0JHW 5pYNmnG1ynXuy smogdU4yGvb+P25PYC6YE QJRXW0TYkl7V1ItWpjofR I+HH51YYPpBW09gLFjtQF ts8jcaEv5IzRs NQPtAKV9rQuiCUvtr2XwW CIuZ38tqXHri8P0VJErgM bfxGSqLzFfeOG4zL5dRWf nuxfqe8nvrkpx Kpaaq3bhnw40kB47O87hZ OpeOHWrXWA1DBRaZQNndN pbnm2efR6bYi7+QCajf2f fq2mjvBd6QoWm KQRivrBacQqoNPN8x5BrB s23S0HcxTzjw1SfTfi3zp 34uQKte5G9eSL3WDuqZMM ylB9uNHmvPtP7 JBDlKoWnmB19oWNjQKutT j4ecBxktRhkMS3iBJGfbs szKIJiiM8ySIOmyANumGq oJR5rHDBxodiw c527SiGcXTF9CBSnpCRwL 0SwoZ1hTkFzOPYgPFQkM6 KrrJJpGAxjY495WPubXwR 6TWVqnxHnB3Vw IVAzfPvcUdC1j5S4Ho6Wi 1UobfqvXOC1FQjkFRExPc MkHbEwZhP7Q7WlPex1BGY voYjgHG5bG0Gu QSPcosshenfcsOU5JBAcH CQelP91nXYbJQbhAo1nm6 T6t957GQDyMZEbqN87Ef0 udDogMTBwdCBU iR8cbjvyj6daqyiyPgOxS ULpQZo9MRi1OGZxhJvtBu CwHGJ4XjU2IMD4tDCclC4 tbLgigzuplE6b Oyc+A70yiS5xKUD3WUK0v bxxBFMnlmQlQO93NS51I1 RyPjwvdGFibGU+PGRpdiB fpDxlFX3cCkBs h7qwu4ObQUmwL7CaOVYzA SgiIab7BUAnSVW6zSV7vX 2hXQExXHjxx7D3vSW5V9S issOvjz8yo4gx DUGgCFexM42vdKIjn8N4N GGgbYX5TSSmfQqqUoCgpX 93Oyc+ZPTiqNksn8TxFrq dd7dqw8pegPa1 JnBzLTMwrfTdiVjjHQD3w 0TdId12U15qZCtrVKXcCS VaCVCjMAXveJfrnr3nnL2 wIi8+PGNvbCB3 dBR3gA3oFWLkLaK0HCbbC 124IjMhrAWtYpboc4wde0 jdpXv7KgSnTXBfnxKfeVn oULP8o5FzTa54 O60sIAbxTMOxCWZcRYYdI PJtjNwuci4jsC3bAc3+PC 0vj6dsil63yN06bUP+PHR vUEQ7wGrrUAuy WUVngQ6wIMgwCfK3TVMcG eDpqD51hNKyURjuRy6iqV qrwKlzSW7nLDIlggaoj82 5DeGwe1sjXFGr yDNuGUxyRLZ3M92hu9V6V JKsEXNsAOP9gJZ3sE1rwH lnbjogbGVmdDsgdmVydGl kLTmcLAbmE399 IHRvcDsnPlBhdGllbnQgT uRnUZh7O2SyBmi3VMTbgT urPY1zpOMwLWbdZu6mgQt csDktLK4yOPYv tfjbx321VrLpx3ooQAGkm VLtTAmvDJF2M30jp0W1FU JsNUHmBMW6jFI3xC5jzYp nbjogbGVmdDsg ptNamDayXCupMVdcB051S HRvcDsnPkJpcnRoIERhdG O6FJ89RU26pNKeo6T1rAW 5K9AaTTLoobhn vtqbpUL8CZKdYZIlcN75J f9hgWcwGf6oKNAgDAK4DA KszZSlF7HmrN9fSiBpEXF gPEZjB3HtsSSy ITipO125ALqcRyQ0YRViz aFeC6MkRIInoPftPoG8g4 J4Gh9UI5X8TQ12QW42vDR cs0G0uHY6I4Ca KNNgllombzjuxYV5YRXdO GWupW05Fi8tmJxlYp2hTC RhKKW1LALbvWLpV6MutV2 yOiAjMDAwMDAw S4WwpWYsHBhzG225KJwhH gH8EFWysdWoO8OpKPBhcQ vwCzH3i7Y3Ho7CITs0BG1 7EF72bBSfy1J3 yBF5T4LnATIbhxpmsyhfd DZ9ZRLqBDGkvW45Yp2ibD thTq0cNEMjLEK0LEKeaIE nC3WmlK6bQxDv XSTiZHCzR9PvmJXsPDtyA 136YUyeTuD0YSWjqeWiN9 DwCAJltOkvFkV1v2L9Ot0 MWOQgQV51ABD0 nDD7IS88LS17V4BcYuapm GFibGU+PHRhYmxlIHdpZH RoPScxMDAlJyBzdHlsZT0 nFl5vBKJpUCDt eOctcNXcYkAce7pgKSEbS IufFP3ofYheL5DklQS6VP Ckx7z9Bh81A54iR7TsjQR +GTHvwNT3tLB0 sY5uGxOwNoN4SGygF584Z jWfbGGqSxqco0znr6nzkK q2RuF8RQQhkrJhwRjeOJA 4v3RiYj33B93t IHdpZHRoPSIxNSUiIHZhb Wfokp7yoR6yYl2+PGNvbC C0mDM5iS0nRvEsJpH8AKh cL644YbWrzJFd Epqyw1ewn6fdvIl7DcGnX OGjccUrfKvwSSJ1h0MjEw 80E5KkyXgll4QgLst6wu2 3lVVgu9B9pHH5 M5FxBLQfvvucdLGfwYtkS I3iBLDbuiddYVDeuL8gBK WrO7d5LiXeZcX5GOjqG7M hawD7VFCnlZVy DIvaAWL9S52fu5W3WXTaU PEaROP5dIA4sU1gkLcypi ogbGVmdDsgdmVydGljYWw oARfaB371PXUj dBbuDJQslG8oYLRhiDHwu QtoDW0cCDBcgleyTeDBHC REWSwgSEFOTkFIIEdSQUN JHF85UF20aGYy y8H7sEP5O7ShNOUiqmrnl gvegNN6UYUmXDDbxZ95eS VoEVnwPm9xn4F9v145RQZ uENSlrX43Mu6w zKgqROJjsYLTjG2cbsxwt 0wqnhtvAbZbVKGcKEb7TT q7GNGdkDqwItPdRXF2OfB 4GZK7hRByoV8g aCxawzxjbH5zWmo+MDMvM DkvMjAwMTwvdGQ+PHRkIH G7iDxpOTmfDWDruI0iHKC kK5b4FoJcJwS8 QEmtK6TnAJVetpjlJo64g M0lOpAnZeR0ZRblF8Bctp I4RXCluEZhVCbmEZV4X79 fl9K5QHVuWJBr NNS7rQC7dS2wtKskruueh GVmdDsgdmVydGljYWwtYW nkV869OVZvkYmzYmJoFMs qKXMpZC23WM74 gIAjj5F3qFR9Y4EaKUXfp ymctmktyBR9HIDuKARrlW 19sCRbKBydKv1gb2O3w68 0KGBsLPBgsS77 Qw8lrDpzOSIdmPYRzO8uz pbku3sdolmzRtIoOOTvHG e9CQb6ADYexNwsGxUcDBW 8TaF3UVS5yHYw eE1jtRbypkikzA2qIfq+R hDROInPXY97DW12pWGpn8 Q8uXH0Y2CjRGAxsjucxtw jcBY1SBZhATWe dL32nKTvGTofVk1yi0Y9f 656IZXzUETuvY40Dd0txD rxUDKmfFXYvK3jhzavs6y vcjogIzAwMDAw MKw5XKr3RDJlxAlmYpXiV AY6HqZ5AKQ9oVIanS4pkN heckzgsM5pQiw+V5Q2D9A kPjwvdHI+PC90 RFFnRC90nLPatMBqt9aih Np3JmLqUXVhCCL0jAhmAV ekw1QvLHMhZ22xaMYwv8L 6IGNvbGxhcHNl PnNptEV4sU0eSXlojpvbu 0jgggrmVknol0qwma31mL 07B25bBRljMRXdBCJaVJB lEVZuaXpdmh8w uF8lWp6+VCSbeLX5aIT4s J0wOgUxVtL3XGyvH544Zz IlzZWaVowml1cyv8rzjWv 9IjIwJSIgdmFs oCstDQP9g3PrNo02G60gI HdpZHRoPSIyMCUiIHZhbG wmfl1xyP6eAk7+XJ4xy3x hhf32wM82uXT+ APBmILE6xBrfCRkgVECjk U8yZXpdZqY0WLCvXkBjyU 04vFKkSYwxJf5fhRlvfMp yLQ2cCMOyjvht i622OzWbo5bgHPNdnRZvK JhgWPQ6C41jg1B8VWZpTT HrWBP4hOL6aO8pzSednxt gbGVmdDsgdmVy mRtmWWlsFXglY610VMXsy DyeBkIxbVDxU8poufTXXS 1lOjwvdGQ+ZPLfZOC1vIm bXXzkPTIhxA3g RLWkM5n0BfQbBcC2LFwfI 8EzouS7DMBycWLkPJJypB OGvT9nogdwo4vpxwryBxT vODRzCJu8CEu6 QCAtnXykFuCrYJF3TjQ9I IB8lUUqpY4bnTbkjdnpmW 9wOyc+RklOOjwvdGQ+PHR bQRA1mAouSAcw XQXwbH6mDWYuS1l3NcKsD lO4GFmoX8ZiwyU6HHEbkL ZyTKVizBYWaI1bqdpzo4u vcjogIzAwMDAw SMf8UZe5KQJwxGfzErUfP JF5LgY4ZBC9gQIwjG8fxP vwcdfkgK2fUfm+TVJOOjw vdGQ+PHRkIHN0 vAeiXZcuPEUpxY7iEUYfD 9h6MvCnMjK7KXdsJ7Dpdz Z8QRDnqCYlHLSeoSMFjL8 yznpmf2gzoabr AnFtHDShNVf4JHz5MVGhp YozKvYmBCI9KpC2SGO0iE SxcH1gsUuthpyruE0dIll +EWS1OAJ8UH85 PB19Z4GeFncciWQazDV+P HRhYmxlIHdpZHRoPScxMD MsEyVttVlfIT4eEu5aYKW yLWNvbGxhcHNl OiB (more content not included)... Normal [facility] Urgent Care Note- Provideron 04-06-2021 Urgent [...] and Plan Diagnosis Sprain of left foot ([id number]-FN S93.602A, Discharge, Medical) Plan Condition: Stable. Disposition: [...] she can arrange follow-up as needed. Normal [facility] ED Clinical Summaryon 2020 ED Clinical Summary [facility] ? Urgent Care [address] [place] [address] Clinical Summary PERSON INFORMATION Name: LEIGH MONTOYA Age: 20 Years Sex: FEMALE : 2000 MRN: Acct#: Visit Reason: UC - Ankle/Foot/Toe Pain or Swelling; LEFT FOOT PAIN Arrival: 04/05/2021 16:12:07 Discharge: 04/05/2021 17:50:00 LOS: 000 01:38 Check In: 04/05/2021 16:12:07 Checkout: 04/05/2021 17:50:00 Address: [facility] [place] [place] [id number] PCP: Flex Wang DO PROVIDER INFORMATION Provider Role Assigned Unassigned Monica Dunn MANUFACTURING CONTROLS ENGINEER Nurse 04/05/2021 16:14:32 Paul Atkins PA-C ED [...] With: Address: When: JEFF JESUS [address] [place] [id number] Business (1) , only if needed With: Address: When: Flex Wang [address] [facility] [address] [place], [place] [id number] Business (1) Within 3 to 5 days DIAGNOSIS: Sprain of left foot Patient Understands: Yes - Patient/family/caregi nela verbalizes understanding of instructions given Comment: Normal [facility] ED Patient Summaryon 021 ED Patient Summary [facility] ? Urgent Care [address] [place], [place] [id number] PATIENT DISCHARGE INSTRUCTIONS Patient Information Name: LEIGH MONTOYA Age: 20 Years Date of : 2000 Reason For Visit: UC - Ankle/Foot/Toe Pain or Swelling; LEFT FOOT PAIN Arrival Time: 04/05/2021 16:12:07 Primary Care Physician: Flex Wang DO Attending Physician: Nirav Nunez Comment: Patient Education With: Address: When: JEFF JESUS [address], [address] [address] Business (1) , only if needed With: Address: When: Flex Wang [address] [facility] [place] [address] Business (1) Within 3 to [...] ? As (more content not included)... Normal [facility] Care Recordon 021 Urgent Care Record [facility] ? Urgent Care [address] [place], [place] [id number] PATIENT DISCHARGE INSTRUCTIONS Patient Information Name: LEIGH MONTOYA Age: 20 Years Date of : 2000 Reason For Visit: UC - Ankle/Foot/Toe Pain or Swelling; LEFT FOOT PAIN Arrival Time: 04/05/2021 16:12:07 Primary Care Physician: Flex Wang DO Attending Physician: Nirav Nunez Comment: Visit Diagnosis: Diagnoses This Visit Sprain of left foot (S93.602A) UC - Ankle/Foot/Toe Pain or Swelling ([id number]) If you received any narcotics, sedation, or [...] With: Address: When: JEFF JESUS [address] [address] Business (1) , only if needed With: Address: When: Flex Wang [address] [facility], [place] [address] Business (1) Within 3 to 5 days Medication Information: The exam and treatment you received today in the [facility] were for an urgent problem and are not intended as complete care. It is important for you to follow up with a doctor, nurse practitioner, or physician?s assistant front desk manager for ongoing care. If your symptoms [...] we can reach you if necessary. [facility] has provided you with a complete list of medications post discharge. Please inform your pipe inspector/provider of your visit and for further instruction [...] no br (more content not included)... [facility] XR Foot Complete Lefton 03-20 XR [...] Fernandez 04/06/21 8:27 am Technologist: NELIDA [facility] Coding Summaryon 08-01-2020 Coding Summary HTMLBase 64 TkhknxxqXJe7mDz+PGhlY WQ+ON8PYZQbX17bmHSvvE 8KW6bXDZ6EGSFQBDJEHL3 REL4fsYL3JZunD6IoikUb JtrejKMqEE60IGp3JWM2v CbuXIaxfW0mpKElK1w0Ck PhSA75cR40QWypNVMoWgH 3LjZpbjsgbWFy Z8cfDxShqJYbZcv+PHRhY mxlIHdpZHRoPScxMDAlJy TudBvsUP8gJn9mARNzFBD vbGxhcHNlOiBj i7yqOVStDEcpQH8dkNpmT 0OcqOC7VZRto2l3Aa62qU I+OBCzMBE7gRxgZJhgs14 7PsHom9prQBE5 wWCdYRaxTWO2N69yj7H6C BOkNKQtLJU3nJX3vH4guI dznumyI4PltHUkSfV8PWG 2iKLyzK4zoEbl egxygN4xLrk+W20IQI3QY RKHVG8HUjn5I9FcOavllM I+TA55CQWpXQ30eWJhlCA ga4othCm2AbYx FAGyRWA9tQsdJYcwr6RkA LAdD84etKVcx1M1ZIEoeU ailFZtImAprWI6iR3aZRy eeojvw9dxocht Jzxyq3ofyt72fQ01B63rE UxyOYVzVHT0NGFtCNWheC icbt7lzM2jEf1+TUfhb7i ay4egbQm7UrQd GYRcnlMktHsbKLD5x2PjW u03N9PbnQuty6SnFcz4ru 16lOTqd3J4jRB8CYwzGKV anQ8gPIocGvH5 GPKwCrPgpN26cVCtVKzvZ j4xfZadgMxuMB8lOKNijy leAJVlnR7iFWKggCVziZm gTO5jQXRgfzrq m280ZeDeJIF1JHZxtWWnA 4PsiT0uTaIaFAVnRKRfK5 QjvYHkVTtbW650ZCzoVkL 5OYFlmsGjI2Qf BJHorYbkRmW1t0R5Zy8Ch 3BojtvgTGU3IYcePZJeVm Q8QnFjEaP9Z1NjPop0QDB txXhpAC8uY0Nl LXLadkvyvzuilEW7MBXgM WXvkF84sQXiIYysPv3qh5 O2e455TDPhARFbeM36Nk5 udDogMTBwdCBU jJ3atxsno6sedatdDnEcC KIzDEn9VIk5ARNisYxzHr FaPBQ6YgH1PPR8sKXotP3 vcTrrqskypL8u Oyc+V92ocG3zICQ6ZBE8l sulPPDpfwSgJW47LD98O5 RyPjwvdGFibGU+PGRpdiB ukApyBN9kTkRr x7vno5CgOEsjP6AzRQNpL IivTrc4BOEnIDW3bXP0tH 3aCSGrKZvdq9I3dGS5N4Q xnzGtfb7yc2il PHUgIXvhK66ikVJzs0U0B MIxfWF0YTShaIoiYwOusK 93Oyc+NSSsvEhow4UsFtc nn7yxy4kubUy7 OiOhSROytnOgxOlvGCT0s 7SsYl97O46oJHtoTXYvSB WzYONsMIHgtRvoqf1alG8 wIi8+PGNvbCB3 zOZ1iK7lCHVcLmR5FFxlL 590LcPihMOsTpflp9nqb1 ekeHp5IlXsXMWrqpMwqGg kVGG9o6NhJt15 J19eDDgfUKRdEPIyHBSnD DXtpUzyzn8zxW2cGj7+PC 8xq9hjug28lW36xQR+PHR jJIX6lWimHGnd MGQvhL0rTHatLsO6PGWyI mNvmE01pYGbOSmfKt6mwA jzaLfkBB3iDKTlhgdgj36 5BwZts9kaEUHy kAPuRUxsGEK9E19ca4D7K YWlPQTxCDC5eYM6iM3mqS lnbjogbGVmdDsgdmVydGl gPQbhZKfhQ233 IHRvcDsnPlBhdGllbnQgT lEzMYf6P5GhNqi1PJWttF zrCI6muTVrGSauKa4siGx pgTzzAY8pCXYj bwqbe796SdRmm4gpCBUil BUeKAwuPQY1J48vd6T8BU JkEOGeCJP1dJU5iS7tpIk nbjogbGVmdDsg tnAhgEszJNntPXhoQ397S HRvcDsnPkJpcnRoIERhdG Q5JM07RN78qLMjl8C9qXL 5T4RxLNIercvj egnraVB2QXNiKAGuqQ40D o9wtHbcDp1xFMAtUOO1DA HquUNqV5QkuL2eSrXaHVS vTVSgB9AnmYYh VZzmL591APgwGjH3LZGty pZfJ0JhJASldRltEyM0d9 H2Ob2FB5X9SN72AX74jXA rj4F2dGU4I3Ky QIUjkzvsymgcnAW6EXInI TCrjU66Yw3ucGwrGx6fMV HzQZU5INKekDIuL0PzyV8 yOiAjMDAwMDAw L0JizPUpRUloJ012NLqfZ uO4DEQtbiFvI0QxTXMliG vtCtM5p5Y6Tt8XQUd2ZK2 0FL02zCZem0E7 eTD5P1PfFVYgijpobahei PX1WNSwLIVpfI02Ux7tsW qxVh3fSYFxBNN0ZWOnmEK hY8TpcN6bTcTj MYAnJHYmZ5ZnkERwXYvuS 751OKddApV7CFGuoeCcL7 JfDAUfcFroOcP9i7F7Mj9 CBAKgFX06NHI3 cVV2SB88FC17R1TwXfijr GFibGU+PHRhYmxlIHdpZH RoPScxMDAlJyBzdHlsZT0 aBl8hZLXbGDMo hDbwxDYhTuCew5fwAPMxU SjrRP7bxQinN4RrmKL6JF Tfm0o4Tv89E29sV0ZjzSQ +WGJomAG1jTE5 vL2bLeRlBvG6XGcyS774R iWhkTWrTfqpf9bww5osgP p0SyA8NCKgpyKyeJhyVNO 7w7NqUb45K73f IHdpZHRoPSIxNSUiIHZhb Klwbq7tvN9lXl4+PGNvbC H5iCQ8jX0sYqOfReT4SMe jJ231BiSpcKHy Vdxoc0qdk5gayJb7NmHkY GGyepMnqByqLKB3i6NsLn 65Y8UntJnhe1NfWkh7ob6 4kCZkf9U4xTS5 G9EcROUwkatopLXhmIgeS V4gJWOjehtlXMMmkP8zMU ObY3k3QgBxYfU7VHtmY0C wxfN9VEPcmULr ETvtCAZ1M07sf0Z2JQIyS TQwMCY8qTK6rX3zhUzidf ogbGVmdDsgdmVydGljYWw cZQtsE860HVJc bMzyNPQacR2tXELshHUdn GejVM8dWPOhftavIvNUHT REWSwgSEFOTkFIIEdSQUN SKM99CN86pPSq o0F8dDV1H0ZlNRPspfjwr semtDH1ZLDqIRPtdU40hO FkQVitOf2az3L9g509PZI mINJvdT66Hi2y qOoeSNMtfGELuW7tybnuc 4molrztDzFxFXSwFGa1VC r0EJDjvBoiCeOvQVK3CzZ 9EPR0zDHufY6g eWbfvklnwP3fXpb+MDMvM DkvMjAwMTwvdGQ+PHRkIH T9jWnePIsaBKOndM4zFZX uY0w3OiRnZaO9 LYdbB6VcXOMjuzboCd02g O7lNcSaXwZ3DTbeD9Zxiv M3NCIlsINsOYieICC9H81 qt4O2LIDoUJLi PSV9mXM3tT6dsUpcbsuly GVmdDsgdmVydGljYWwtYW zyI471TQTukQliPfCjEWw cLVUwGD05DD01 fPUrc8Q3rYS8V1TdTOHrv dcrapomnFC0WLPtSSRfpW 67iDXaKQmqLs4vd0H7p63 3FOSgSSTarO48 Ku6ynJcdCHMhiIVZnU8nm vqej1hposgwKbQzHRGwCM a9MIi3CYAqgKjwIoCqWKK 6BpH2CAB9hUJx wZ0ngTgmhpiohY5wAmm+R iFZUCgNVO26VK79kXJbb4 R3qUN3M7OwBSIadrbgqzy grYM7QFZtUQLe iC45bQMqRWhmMd5tw8G3y 275QURvTEUlsH93Ce7paA uqAWVymTRWeK0hbllzv2v vcjogIzAwMDAw SFm2KVb4IYSyuYzkYiEoV JX6UfP6AZA5uBTpkY5cyZ tjvenyoS0jXmr+W9W8R1P kPjwvdHI+PC90 LRAyRV39hUFyqJDly0kag Te0WgVdZSUtAWZ7sFpwXV yrc3IdBQZyL61ibUGcp3M 6IGNvbGxhcHNl XuSbuGX8cP7tXBbwtsaqa 2pwlfitDzntt9armv10jL 94W68hJLfpFNXtNGIlSGT jHXLobBnlcc2j zN2xNy0+OICbaBC7cKC3k Y2dHlBqTuC2KKbzR957Fb VjkBIkIishe3yye8qgaFr 9IjIwJSIgdmFs dRgnPSP9k2HsBe80S65nO HdpZHRoPSIyMCUiIHZhbG suzo4qcP1iPf5+ML6ou5m wah39rB39rCN+ VURzPJO0lHzcDZboWRWiy Z9lTVvgOeN4KSKqIvBtvW 80hFYgFNgbUg5mgTuiaDj bEV5jLBGrhqcb z076NuGjo9xwEBUjdWHoO XopKPU4C77oq5R2CQLmEF EsOZE5rTV9tK3bcRqgyep gbGVmdDsgdmVy nChgRCtyWCsbL891SEVbo QuyEsOqnNXmG6whxbKTPB 1lOjwvdGQ+RDAdHEY0vRq eQCuzEQNudD6k IRQfR4i7CcAgHrC1QKnoX 4EsxuR3RUGeoRNwXBDsiL EVrK4vrjrge7xxrujbPuQ wLNZtVAz7YCg2 HMHncGsdVhKgGOZ9VyW7L JZ8wVCvuO3roQuojfoexE 9wOyc+RklOOjwvdGQ+PHR aXBF2wMzyHNwk KHJxkN7gQAZhE2e5VkPwC uO8JRbmY0PivmE7YAFmdX YyVQAdaWURhV1qpzdzw1p vcjogIzAwMDAw NPy3VHe0SAPgwOsuUgSjL HI3VmY8TXW2eMUcbF9xxT yvdtasvM4kHsw+TVJOOjw vdGQ+PHRkIHN0 hHcvKMfsCIQfrP5oZNFaQ 7c5SlVfUyX8OHclL4Vmcs L4NMYmbFNiBTRyzQTGqS2 ouzwxw6wgjryl SfWpTHLyBBl0KBn8ZDKdl YmkBnRsFZZ6KtU5KDE1xF FlmG8ghFgqflitzJ9aGxg +KLS5LBP4YP89 NZ51K2MuQrnpyAHgnCN+P HRhYmxlIHdpZHRoPScxMD PdIfOwfTsdGR5mJb8iISC yLWNvbGxhcHNl OiB (more content not included)... Normal [facility] C Throaton 07-31-2020 C Throat Ordered by Discern. Normal throat regi isolated No pathogens isolated Normal [facility] Comment on above: Performed By: #### [id number] ####[facility] (DEFAULT)[address] [place] [address] ED Clinical Summaryon 2020 ED Clinical Summary [facility] ? Urgent Care [address] [place] [address] Clinical Summary PERSON INFORMATION Name: LEIGH MONTOYA Age: 20 Years Sex: FEMALE : 2000 MRN: Acct#: Visit Reason: UC - Sore Throat; THROAT PAIN Arrival: 07/29/2020 09:44:22 Discharge: 07/29/2020 10:23:00 LOS: 000 00:39 Check In: 07/29/2020 09:44:22 Checkout: 07/29/2020 10:23:00 Address: [address] [place] [address] PCP: Flex Wang DO PROVIDER INFORMATION Provider [...] Negative . Impression and Plan Diagnosis Pharyngitis (OSW23-TJ J02.9, Discharge, Medical) Plan Condition: Stable. Disposition: Discharged: Time 07/29/2020 10:17:00 (more content not included)... Normal [facility] ED Note - Provideron 021 ED [...] Negative . Impression and Plan Diagnosis Pharyngitis (PHU57-GP J02.9, Discharge, Medical) Plan Condition: Stable. Disposition: Discharged: Time 07/29/2020 10:17:00, to home. Patient was given the following educational materials: Pharyngitis, Jcup-tr-Oqkg, Pharyngitis, Gqor-ue-Rcux. Follow up with: Flex Wang Within 2 [...] 07/29/2020 10:20 EST] Patricia Meeks PA-C Normal [facility] ED Patient Summaryon 021 ED Patient Summary [facility] ? Urgent Care [address] [place], [place] [id number] PATIENT DISCHARGE INSTRUCTIONS Patient Information Name: LEIGH MONTOYA Age: 20 Years Date of : 2000 [facility]: [id number] Reason For Visit: UC - Sore Throat; THROAT PAIN Arrival Time: 07/29/2020 09:44:22 Primary Care Physician: Flex aWng DO Attending Physician: Patricia Meeks PA-C Comment: Patient Education With: Address: When: Flex Wang [address], [address] [place] [id number] Business (1) Within 2 to 4 days [...] Follow these instructions at home: ? Take tfet-wjm-kdyihfx and prescription medicines only as told by [...] 10/22/2008 Document Revised: 04/18/2018 Document Reviewed: 06/11/2017 [employer] Patient Education ? 2020 [employer]. Medication Information: The exam and treatment you received today in the [facility] Emergency Department were for an urgent problem and are not intended as complete care. It is important for you to follow up with a doctor, nurse practitioner, or physician?s assistant front desk manager for ongoing care. If your symptoms [...] we can reach you if necessary. [facility] Emergency Department has provided you with a complete list of medications post discharge. Please inform your pipe inspector/provider of your visit and for further instruction [...] Throat (C11 (more content not included)... Normal [facility] Strep Aon 07-29-2020 Strep procedure control Pass Normal [facility] Comment on above: Performed By: #### [id number] ####[facility] (DEFAULT)[address] [place] [id number] Streptococcus A Negative Normal Negative [facility] Comment on above: Performed By: #### [id number] ####[facility] (DEFAULT)[address] [place] [id number] Urgent Care [facility] 021 Urgent Care Record [facility] ? Urgent Care [address] [place] [id number] PATIENT DISCHARGE INSTRUCTIONS Patient Information Name: LEIGH MONTOYA Age: 20 Years Date of : 2000 Reason For Visit: UC - Sore Throat; THROAT PAIN Arrival Time: 07/29/2020 09:44:22 Primary Care Physician: Flex Wang DO Attending Physician: Patricia Meeks PA-C Comment: Visit Diagnosis: Diagnoses This Visit Pharyngitis (J02.9) UC - Sore Throat ([id number]) If you received any narcotics, sedation, or [...] With: Address: When: Flex Wang [address] [place] [id number] Business (1) Within 2 to 4 days [...] and treatment you received today in the [facility] were for an urgent problem and are not intended as complete care. It is important for you to follow up with a doctor, nurse practitioner, or physician?s assistant front desk manager for ongoing care. If your symptoms [...] we can reach you if necessary. [facility] has provided you with a complete list of medications post discharge. Please inform your pipe inspector/provider of your visit and for further instruction [...] Follow these instructions at home: ? Take ynmb-cud-oxfekgq and prescription medicines only as told by [...] help righ (more content not included)... Normal [facility] Coding Summaryon 06-27-2020 Coding Summary CODING DATE: 06/27/2020 [facility] STATUS: Home PAYOR: Commercial Insurance [...] Padilla Date Saved: 06/27/2020 12:[address] [facility] ED Clinical Summaryon 2020 ED Clinical Summary [facility] ? Urgent Care [address] [place] [id number] Clinical Summary PERSON INFORMATION Name: LEIGH MONTOYA Age: 19 Years Sex: FEMALE : 2000 MRN: Acct#: Visit Reason: UC - Ear Pain; UC - Ear Pain; RIGHT EAR PAIN Arrival: 06/18/2020 15:00:59 Discharge: 06/18/2020 15:27:00 LOS: 000 00:27 Check In: 06/18/2020 15:00:59 Checkout: 06/18/2020 15:27:00 Address: [address] [place], [place] [id number] PCP: Flex Wang DO PROVIDER INFORMATION Provider Role Assigned Unassigned Monica Dunn MANUFACTURING CONTROLS ENGINEER Nurse 06/18/2020 15:03:15 Alessandro PA, Marv ED PA 06/18/2020 15:03:24 VITALS INFORMATION Vital Sign Triage Latest Temperature Tympanic Temperature Temporal Artery Pulse Rate O2 Sat 98 % 98 % Respiratory Rate Blood Pressure /78 mmHg /78 mmHg MEDICAL INFORMATION Medications Given: Allergy Information: sulfamethoxazole; ibuprofen PHYSICIAN DOCUMENTATION DISCHARGE INFORMATION: Discharge Disposition: Home Discharge Location: Home PATIENT EDUCATION INFORMATION Instructions: Otitis Media, Adult, Ftjf-qt-Ubnc Follow-Up: With: Address: When: Flex Wang [address] [facility] [place] [place] [address] Business (1) Comments: Begin on the amoxicillin-clavulana te antibiotic take every 12 hours for the next 10 days Follow-up with your primary care physician in 3-5 days for reevaluation, sooner if any worsening symptoms DIAGNOSIS: Otitis media, right Patient Understands: Yes - Patient/family/caregi nela verbalizes understanding of instructions given Comment: [facility] ED Patient Summaryon 021 ED Patient Summary [facility] ? Urgent Care [address] [place] [address] PATIENT DISCHARGE INSTRUCTIONS Patient Information Name: LEIGH MONTOYA Age: 19 Years Date of : 2000 [facility]: [id number] Reason For Visit: UC - Ear Pain; UC - Ear Pain; RIGHT EAR PAIN Arrival Time: 06/18/2020 15:00:59 Primary Care Physician: Flex Wang DO Attending Physician: Marv Shannon Comment: Patient Education With: Address: When: Flex Wang [address] [facility] [place] [id number] Business (1) Comments: Begin on the amoxicillin-clavulana [...] Follow these instructions at home: ? Take pazw-vyh-jattruc and prescription medicines only as told by [...] 10/22/2008 Document Revised: 04/18/2018 Document Reviewed: 05/27/2017 [employer] Patient Education ? 2020 Webcom. Medication Information: The exam and treatment you received today in the [facility] Emergency Department were for an urgent problem and are not intended as complete care. It is important for you to follow up with a doctor, nurse practitioner, or physician?s assistant front desk manager for ongoing care. If your symptoms [...] we can reach you if necessary. [facility] has provided you with a complete list of medications post discharge. Please inform your pipe inspector/provider of your visit and for further instruction on these medications. Any specific questions regarding your chronic medications and dosages should be discussed with your primary care physician(s) and/or pharmacist. New Medications [facility], [address] [place] [id number], [phone] amoxicillin-clavulana te (Augmentin 500 mg-125 mg oral [...] media, right (H66.91) UC - Ear Pain ([id number]) UC - Ear Pain ([id number]) If you received any narcotics, sedation, or any other medication that causes drowsiness for the next 24 hours, unless otherwise directed: ? Do not drive a car. ? Do not operate machinery such as power tools, lawn mowers, drills, sewing machines, or stoves ? Avoid alcoholic beverages and drugs for allergies, n (more content not included)... Normal [facility] Note- Provideron 06-18-2020 Urgent [...] Impression and Plan Diagnosis Otitis media, right ([id number] H66.91, Discharge, Medical) Plan Prescriptions: [facility] prescriptions Pharmacy: Augmentin 500 mg-125 mg oral tablet (Prescribe): 1 tab(s), PO, q12hr, for 10 day(s), 20 tab(s), 0 Refill(s). Patient was given the following educational materials: Otitis Media, Adult, Iyou-sf-Gxpq. Follow up with: Flex Wang Begin on the amoxicillin-clavulana te antibiotic take every 12 hours for the next 10 days Follow-up with your primary care physician in 3-5 days for reevaluation, sooner if any worsening symptoms. Counseled: Patient, Regarding diagnosis, Regarding diagnostic results, Regarding treatment plan, Regarding prescription, Patient indicated understanding of instructions. Normal [facility] Recordon 01-30-2 021 Urgent Care Record [facility] ? Urgent Care [address] [place] [address] PATIENT DISCHARGE INSTRUCTIONS Patient Information Name: LEIGH MONTOYA Age: 19 Years Date of : 2000 Reason For Visit: UC - Ear Pain; UC - Ear Pain; RIGHT EAR PAIN Arrival Time: 06/18/2020 15:00:59 Primary Care Physician: Flex Wang DO Attending Physician: Marv Shannon Comment: Visit Diagnosis: Diagnoses This Visit Otitis media, right (H66.91) UC - Ear Pain ([id number]) UC - Ear Pain ([id number]) If you received any narcotics, sedation, or [...] With: Address: When: Flex Wang [address] [facility] [place] [address] Business (1) Comments: Begin on the amoxicillin-clavulana te antibiotic take every 12 hours for the next 10 days Follow-up with your primary care physician in 3-5 days for reevaluation, sooner if any worsening symptoms Medication Information: The exam and treatment you received today in the [facility] were for an urgent problem and are not intended as complete care. It is important for you to follow up with a doctor, nurse practitioner, or physician?s assistant front desk manager for ongoing care. If your symptoms [...] we can reach you if necessary. [facility] has provided you with a complete list of medications post discharge. Please inform your pipe inspector/provider of your visit and for further instruction on these medications. Any specific questions regarding your chronic medications and dosages should be discussed with your primary care physician(s) and/or pharmacist. New Medications [facility], [address] [place], [place] [phone], [phone] amoxicillin-clavulana te (Augmentin 500 mg-125 mg oral [...] Follow these instructions at home: ? Take xwqa-tqc-hjorlwd and prescription medicines only as told by [...] ? You (more content not included)... [facility] Consent Formson 04-28-2020 Consent Forms [id number] [facility]-28-2020 Provider Orders [id number] .[facility] Coding Summaryon 04-25-2020 Coding Summary CODING DATE: 04/25/2020 [facility] STATUS: Home PAYOR: Commercial Insurance [...] Padilla Date Saved: 04/25/2020 02:[address] [facility] .QC Respiratory Panel 2.1 (B ioFire)on 04-22-2020 Internal Control-Resp Panel 2.1(BioFire) Pass [facility] Comment on above: Order Comment: Order ed by Holley.[[id number]] Performed By: #### 6 [id number], [id number] ####[facility] (DEFAULT)[address] [place] [address] Respiratory Panel 2.1 (BioFi re)on 04-22-2020 Adenovirus -BioFire Not detected Normal Not Detected [facility] Comment on above: Performed By: #### 6 [id number], [id number] ####[facility] (DEFAULT)[address] [place] [address] Bordetella parapertussis -BioFire Not detected Normal Not Detected [facility] Comment on above: Performed By: #### 6 [id number], [id number] ####[facility] (DEFAULT)[address] [place] [address] Bordetella pertussis -BioFire Not detected Normal Not Detected [facility] Comment on above: Performed By: #### 6 [id number], [id number] ####[facility] (DEFAULT)[address] [place] [address] Chlamydia pneumoniae -BioFire Not detected Normal Not Detected [facility] Comment on above: Performed By: #### 6 [id number], [id number] ####[facility] (DEFAULT)[address] [place] [address] Coronavirus 229E (Not COVID-19) -BioFire Not detected Normal Not Detected [facility] Comment on above: Performed By: #### 6 [id number], [id number] ####[facility] (DEFAULT)[address] [place] [address] Coronavirus HKU1 (Not COVID-19) -BioFire Not detected Normal Not Detected [facility] Comment on above: Performed By: #### 6 [id number], [id number] ####[facility] (DEFAULT)[address] [place] [address] Coronavirus NL63 (Not COVID-19) -BioFire Not detected Normal Not Detected [facility] Comment on above: Performed By: #### 6 [id number], [id number] ####[facility] (DEFAULT)[address] [place] [address] Coronavirus OC43 (Not COVID-19) -BioFire Not detected Normal Not Detected [facility] Comment on above: Performed By: #### 6 [id number], [id number] ####[facility] (DEFAULT)[address] [place] [address] Employed in healthcare? No Invalid Interpretation Code [facility] Comment on above: Performed By: #### 6 [id number], [id number] ####[facility] (DEFAULT)[address] [place] [address] Group care resident? No Invalid Interpretation Code [facility] Comment on above: Performed By: #### 6 [id number], [id number] ####[facility] (DEFAULT)[address] [place] [address] Human Metapneumovirus -BioFire Not detected Normal Not Detected [facility] Comment on above: Performed By: #### 6 [id number], [id number] ####[facility] (DEFAULT)[address] [place] [address] Human Rhinovirus/Enterovir us -BioFire Not detected Normal Not Detected [facility] Comment on above: Performed By: #### 6 [id number], [id number] ####[facility] (DEFAULT)[address] [place] [address] In ICU? No Invalid Interpretation Code [facility] Comment on above: Performed By: #### 6 [id number], [id number] ####[facility] (DEFAULT)[address] [place] [address] Influenza A (no subtype) -BioFire Not detected Normal Not Detected [facility] Comment on above: Performed By: #### 6 [id number], [id number] ####[facility] (DEFAULT)[address] [place] [address]144 Influenza A -BioFire Not detected Normal Not Detected [facility] Comment on above: Performed By: #### 6 [id number], [id number] ####[facility] (DEFAULT)[address] [place] [address] Influenza A H1 -BioFire Not detected Normal Not Detected [facility] Comment on above: Performed By: #### 6 [id number], [id number] ####[facility] (DEFAULT)[address] [place] [address] Influenza A H1-2009 -BioFire Not detected Normal Not Detected [facility] Comment on above: Performed By: #### 6 [id number], [id number] ####[facility] (DEFAULT)[address] [place] [address]367 Influenza A H3 -BioFire Not detected Normal Not Detected [facility] Comment on above: Performed By: #### 6 [id number], [id number] ####[facility] (DEFAULT)[address] [place] [address] Influenza B -BioFire Not detected Normal Not Detected [facility] Comment on above: Performed By: #### 6 [id number], [id number] ####[facility] (DEFAULT)[address] [place] [address] Mycoplasma pneumoniae -BioFire Not detected Normal Not Detected [facility] Comment on above: Performed By: #### 6 [id number], [id number] ####[facility] (DEFAULT)[address] [place] [address] Parainfluenza Virus 1 -BioFire Not detected Normal Not Detected [facility] Comment on above: Performed By: #### 6 [id number], [id number] ####[facility] (DEFAULT)[address] [place] [address] Parainfluenza Virus 2 -BioFire Not detected Normal Not Detected [facility] Comment on above: Performed By: #### 6 [id number], [id number] ####[facility] (DEFAULT)[address] [place] [address] Parainfluenza Virus 3 -BioFire Not detected Normal Not Detected [facility] Comment on above: Performed By: #### 6 [id number], [id number] ####[facility] (DEFAULT)[address] [place] [address] Parainfluenza Virus 4 -BioFire Not detected Normal Not Detected [facility] Comment on above: Performed By: #### 6 [id number], [id number] ####[facility] (DEFAULT)[address] [place] [address] status? Not Invalid Interpretation Code [facility] Comment on above: Performed By: #### 6 [id number], [id number] ####[facility] (DEFAULT)[address] [place] [address] Respiratory Syncytial Virus -BioFire Not detected Normal Not Detected [facility] Comment on above: Performed By: #### 6 [id number], [id number] ####[facility] (DEFAULT)[address] [place] [address] SARS-CoV-2 (COVID-19) RNA OZZIE+probe Ql (Unsp spec) Not detected Normal Not Detected [facility] Comment on above: Performed By: #### 6 [id number], [id number] ####[facility] (DEFAULT)[address] [place] [address] SARS-CoV-2 (COVID-19) RNA OZZIE+probe Ql (Unsp spec) No Invalid Interpretation Code [facility] Comment on above: Performed By: #### 6 [id number], [id number] ####[facility] (DEFAULT)[address] [place] [address] Symptomatic as defined by CDC? No Invalid Interpretation Code [facility] Comment on above: Performed By: #### 6 [id number], [id number] ####[facility] (DEFAULT)[address] [place] [address] Vital Signs Date Time Vital Sign Value Performing Clinician Facility 12-06-2021 16:30-0400 Body height 160.02 cm Ezequiel Melo Other [facility] Other 12-06-2021 16:30-0400 Body mass index (BMI) [Ratio] 41.62 kg/m2 Ezequiel Melo Other [facility] Other 12-06-2021 16:30-0400 Body weight 106.6 kg Ezequiel Melo Other [facility] Other 10-11-2021 14:45-0400 Body height 160.02 cm Ezequiel Dijessie Other [facility] Other 10-11-2021 14:45-0400 Body mass index (BMI) [Ratio] 41.98 kg/m2 Ezequiel Adamsjessie Other [facility] Other 10-11-2021 14:45-0400 Body weight 107.5 kg Ezequiel Melo Other [facility] Other 10-11-2021 14:45-0400 Diastolic blood pressure 79 mm[Hg] Ezequiel Melo Other [facility] Other 10-11-2021 14:45-0400 Systolic blood pressure 128 mm[Hg] Ezequiel Melo Other [facility] Other Encounters Encounter Date Encounter Type Care [...] Start: 08-29-2022 End: 08-29-[address] [facility] [place] Start: 01-12-2022 End: 01-16-[address] [facility] [place] Start: 12-06-2021 End: 12-06-2021 ambulatory Ezequiel Melo Other [facility] Other Start: 12-06-2021 Patient encounter procedure Ezequiel Melo [facility] Start: 10-11-2021 End: 10-11-2021 ambulatory Ezequiel Melo Other [facility] Other Start: 10-11-2021 [facility] visit new patient Ezequiel Melo [facility] Payers Date Payer Category Payer Unknown [id number] 2000 Unknown [id number] 2.16.84 [id number] 2000 Unknown [id number] 2.16.84 [id number] 2000 Unknown [id number] 2.16.84 0.1.370531.3.579.2.9 2000 Unknown [id number] 2.16.84 0.1.276721.3.579.2.1259 2000 Unknown [id number] 2.16.84 0.1.751548.3.579.2.9 2000 Unknown [id number] 2.16.84 0.1.115851.3.579.2.9 2000 Unknown [id number] 2.16.84 0.1.142601.3.579.2.9 2000 Unknown [id number] 2.16.84 0.1.365912.3.579.2.1259 2000 Unknown [id number] 2.16.84 0.1.179947.3.579.2.9 2000 Unknown [id number] 2.16.84 0.1.750660.3.579.2.1259 1959 Unknown [id number] Medicaid [id number] . [id number] Social History Date Type Detail Facility Sex Assigned At [facility] Other Evaluation note 12-06-2021 Note Date & Type Note Facility 12-06-2021 Evaluation note Encounter Date Diagnosis Assessment Notes Nov, Dyspepsia (ICD-10 - K30) patient states does have some bloating in the left center she does have pain noted. patient is advised that we can start levsin and refer to planer off [facility] for food testing. [facility] Other Evaluation note 10-11-2021 Note Date & Type Note Facility 10-11-2021 Evaluation note Encounter Date Diagnosis Assessment Notes September, Bloating (ICD-10 - R14.0) September, Dyspepsia (ICD-10 - K30) September, Abdominal pain (ICD-10 - R10.9) [facility] Other Clinical Note 04-05-2021 Note Date & [...] This may take several hours. ? Take tege-mjd-baxplzn and prescription medicines only as told by your health care provider. ? When you can walk without pain, wear supportive shoes that have stiff soles. Do not wear flip-flops, and do not walk barefoot. ? Keep all follow-up visits as told by your health care provider. This is important. Contact a health care provide (more content not included)... [facility] Clinical Note 07-29-2020 Note Date & Type Note Facility 07-29-2020 Note Patient Education Ma terials Follows:Disease Pharyngitis Pharyngitis is a sore throat (pharynx). This is when there is redness, pain, and swelling in your throat. Most of the time, this condition gets better on its own. In some cases, you may need medicine. Follow these instructions at home: ? Take twyi-cal-zpprxca and prescription medicines only as told by [...] Reviewed: 06/11/2017 Elsevier Patient Education ? 2019 Webcom. [facility] Clinical Note 06-18-2020 Note Date & Type Note Facility 06-18-2020 Note Patient Education Ma terials Follows: Otitis Media, Adult Otitis media means that the middle ear is red and swollen (inflamed) and full of fluid. The condition usually goes away on its own. Follow these instructions at home: ? Take pqyd-ylh-mjjdger and prescription medicines only as told by [...] 10/22/2008 Document Revised: 04/18/2018 Document Reviewed: 05/27/2017 ElseArideas Patient Education ? 2019 Webcom. [facility] Clinical Note 04-22-2020 Note Date & Type Note Facility 04-22-2020 Note Nasal swab performed without complication. Patient tolerated well. Education given. Patient verbalized understanding. [Electronically Signed on: 04/22/2020 15:05 EST] Miri Nuñez RN [Verified on: 04/22/2020 15:05 EST] Miri Nuñez RN [facility] History general Narrative - Reported Note Date & Type Note Facility History general Narrative - Reported Type Medical History PCOS Medical History Endometriosis Surgical History laparoscopy - endometriosis [facility] Other Reason for referral (narrative) Note Date [...] is able to get in before this. [facility] Other Reason for visit Narrative Note Date & Type Note Facility Reason for visit Narrative PATIENT HERE AT THE REQUEST OF DR. VERGARA FOR EVALUATION & TREATMENT OF BLOATING [facility] Other Reason for visit Narrative Note Date [...] of the side effects that were listed. [facility] Other Summary Purpose Family History No Family History Records FoundNo Family History Records FoundNo Family History Records FoundNo Family History Records Found Advance Directives No Advanced Directives Records FoundNo Advanced Directives Records FoundNo Advanced Directives Records FoundNo Advanced Directives Records Found Additional Source Comments INFORMATION SOURCE (unrecogn ized section and content) DATE CREATED AUTHOR 04/21/2021 [facility] DATE CREATED AUTHOR AUTHOR'S ORGANIZ ATION 11/08/2021 [facility] DATE CREATED AUTHOR AUTHOR'S ORGANIZ ATION 09/06/2022 [facility] DATE CREATED AUTHOR AUTHOR'S ORGANIZ ATION 01/31/2024 [facility] EPIC FOR RECORDS PERTAINING [...] BE BASED ON THE PRIMARY CLINICAL RECORDS. [facility] provides no warranty or guarantee of the accuracy or completeness of information in this document.
--- NOTE | 2024-02-06 19:01 | US_ITS ---
[address] [address] Patient Name: SHAQUILLE VIEYRA MRN: [id number] date: 2000 Sex: F Assigned Patient Location: [facility] Current Patient Location: Accession/Order Number: [id number] Exam Date: 02/06/2024 19:06 Report Date: 02/07/2024 07:34 At the request of: MIRIAM HAWLEY Procedure: US OB BPP w non-stress EXAMINATION: US OB BPP w non-stress HISTORY: PREGNANACY INDUCED HYPERTENSION O13.9 COMPARISON: No relevant comparison available. TECHNIQUE: Ultrasound biophysical profile was performed in the radiology department. non-reactive stress testing was performed by nursing staff in the birthing center. FINDINGS: BREATHING MOVEMENTS: 2 GROSS BODY MOVEMENTS: 2 TONE: 2 QUALITATIVE AMNIOTIC FLUID VOLUME: 2 PRESENTATION: CEPHALIC HEART RATE: 150.84 bpm AMNIOTIC FLUID VOLUME: 12.5 cm GESTATIONAL AGE: 35 weeks 4 days US/US OB BPP w non-stress IMPRESSION: Total biophysical profile score: 8 Electronically authenticated by: INGRID BARAJAS Date: 02/07/2024 07:34
[2024-02-06 19:32] VITALS: BP 140/84; BP 145/84; PULSE 88; PULSE 92
[2024-02-06 19:55] VITALS: BP 138/84; PULSE 80
== END 2024-02-06 20:00 | disposition home or self-care (01) ==
LOC: US 07:06 → FBC 19:00
PROVIDERS: Visit Provider Physician Assistant
DX: O13.3 Gestational [pregnancy-induced] hypertension without significant proteinuria, third trimester (principal); O36.63X0 Maternal care for excessive fetal growth, third trimester, not applicable or unspecified; Z3A.35 35 weeks gestation of pregnancy
CPT/HCPCS: 76818

== ENCOUNTER 2024-02-10 07:06 | Outpatient (OUT) | payer OTHER, SELFPAY ==
--- OUTSIDE RECORDS SUMMARY | 2024-02-10 07:09 | XMS_ITS | CCD ---
Author Organization [facility] Care Team Providers Care Circle Beveler Name Role Phone Ezequiel Melo Unavailable [facility], DR MIRANDA Primary Care Unavailable JAI ., [...] Reaction(s) Facility (2 sources) Sulfacetamide Drug Allergy [facility] [place] Other (1 source) Sulfonamides (Antibiotic) Drug allergy (disorder) [facility] Repository Medications Current Medications [...] 21 to 29on 09-06-2022 . . Normal [facility] Comment on above: Performed By: #### 4 [id number] #### [facility] [address] [place] [address] Dr. Dat Wesley Age Gdln ACOG Testing 21- Normal [facility] Comment on above: Performed By: #### 4 [id number] #### [facility] [address] [place] [address] Dr. Dat Wesley DIAGNOSIS: Comment Normal [facility] Comment on above: Result Comment: NEGA TIVE FOR INTRAEPITHELIAL LESION OR MALIGNANCY. Performed By: #### 4 [id number] #### [facility] [address] [place] [address] Dr. Dat Wesley Methodology: Comment Normal [facility] Comment on above: Result Comment: This liquid based ThinPrep(R) pap test was screened with the use of an image guided system. Performed By: #### 4 [id number] #### [facility] [address] [place] [address] Dr. Dat Wesley Note: Comment Normal [facility] Comment on above: Result Comment: The Pap smear is a screening test designed to aid in the detection of premalignant and malignant conditions of the uterine cervix. It is not a diagnostic procedure and should not be used as the sole means of detecting cervical cancer. Both false-positive and false-negative reports do occur. . Performed By: #### 4 [id number] #### [facility] [address] [place] [address] Dr. Dat Wesley Performed by: Comment Normal [facility] Comment on above: Result Comment: Singh Sanders Abrasive Grader (ASCP) Performed By: #### 4 [id number] #### [facility] [address] [place] [address] Dr. Dat Wesley Reflex Criteria: Comment Normal [facility] Comment on above: Result Comment: The HPV DNA reflex criteria were not met with this specimen result therefore, no HPV testing was performed. . Performed By: #### 4 [id number] #### [facility] [address] [place] [address] Dr. Dat Wesley Specimen adequacy: Comment Normal [facility] Comment on above: Result Comment: Sati sfactory for evaluation. Endocervical and/or squamous metaplastic cells (endocervical component) are present. Performed By: #### 4 [id number] #### [facility] [address] [place] [address] Dr. Dat Wesley HCG,Urineon 11-03-2021 Beta HCG ( test) Ql (U) Negative Normal [facility] Comment on above: Result Comment: PERF ORMED BY: [address] [place] [id number] PATHOLOGIST CLASSIFYING MACHINE OPERATOR SULTANA PETE M.D. Performed By: #### U HCG #### [place] [id number] [facility] 11-03-2021 L - -------- Specimen: [id number] Received: 11/03/21 Status: AYDIN Johnson Num: [id number] Spec Type: Surgical Subm Dr: Ezequiel Melo MD Tissues: A Small Intestine - Biopsy/Polyp (SMALL BOWEL) Procedures: HE Stain/2, Gross/Micro L4 -------- Patient Age/Sex Location Account Attending Physician -------- Leigh Singh / [id number] Ezequiel Melo MD -------- SPEC NUM: [id number] RECD: 11/03/21 STATUS: AYDIN TRANG NUM: [id number] PAPI: 11/03/[address] [facility] [address]: Ezequiel Melo MD ENTERED: 11/03/21 [facility] DR: SPEC TYPE: Surgical DEPT: S [...] is performed. This case is interpreted at [facility], [place], [place] -------- Specimen: Received: 11/03/21 Status: AYDIN Johnson Num: [id number] Spec Type: Surgical Subm Dr: Ezequiel Melo MD Tissues: A Small Intestine - Biopsy/Polyp (SMALL BOWEL) Procedures: HE Stain/2, Gross/Micro L4 -------- Patient: Leigh Singh [id number] (Continued) -------- Specimen: [id number] Received: 11/03/21 (Continued) Signed (signature on file) Gabe Ellis MD 11/06/21 1703 -------- Specimen: Received: 11/03/21 Status: RAFAELChino Johnson Num: [id number] Spec Type: Surgical Subm Dr: Ezequiel Melo MD Tissues: A Small Intestine - Biopsy/Polyp (SMALL BOWEL) Procedures: HE Stain/2, Gross/Micro L4 -------- Patient: JennyrodriguezLeigh villatoro [id number] (Continued) -------- Specimen: Received: 11/03/21 (Continued) CPT Codes 00866 -------- -------- Specimen: Received: 11/03/21 Status: AYDIN Johnson Num: [id number] Spec Type: Surgical Subm Dr: Ezequiel Melo MD Tissues: A Small Intestine - Biopsy/Polyp (SMALL BOWEL) Procedures: HE Stain/2, Gross/Micro L4 -------- Patient: JuanJaclyn villatorolauren Craig [id number] (Continued) -------- Signed (signature on file) Gabe Ellis MD 11/06/21 1703 Normal [facility] SARS-CoV-2 (COVID-19) RNA OZZIE+probe Ql (Unsp spec) Negative Normal Negative [facility] Comment on above: Order Comment: Healt hcare Worker?: N Result Comment: Testing for SARS-CoV-2 by RT-PCR This test was developed and its performance characteristics determined by [employer] ([employer]) and validated at the [facility]. This test has not been FDA [...] is terminated or revoked sooner. PERFORMED BY: [place] [id number] PATHOLOGIST CLASSIFYING MACHINE OPERATOR SULTANA PETE M.D. Performed By: #### C OVID 19 [facility] #### [address] Coding Summaryon 04-19-2021 Coding Summary HTMLBase 64 CypokdacRKv6vHo+PGhlY WQ+GD9FRGPnI37yzIUigO 9QX0nJMW6HVAMRZCBTRY5 SPF9exZW3ONmeC0KlevRm YwspaBVkMR32PAy7PWW6h NxqTPemoY6doMKfQ1w7Gk FfMI20yW14BXvqUFYlOsB 3LjZpbjsgbWFy I3ntWjVtrMJvTpt+PHRhY mxlIHdpZHRoPScxMDAlJy WyhEpnWZ4iVe2zTSWqGDZ vbGxhcHNlOiBj w6slISCiXGynTU7tiRotG 1HofOS8HXMbc2u6Ym86zA I+ENJbTZF2kEilPMmvj48 5XxSkv7fpYGC4 pPTdZFvuCIR2P82re9A2L IQhXSCmVPZ9xXM6xC3vmS uhhvbdN3SogDXuJtB1HQC 0aTZavT2rcGlb sudhvP8qCxd+R38DPC7LI UHLOP5HXib6M6ClTmhjvZ I+VI85HFUoVJ80jWWffVJ pf1otxCz0VfHk GIXdFMG8yBskVOoyb5NrX ZRvU08ljJDsa3L4EWTmxW kydTUqHxSztLG2yZ9dZSg fuquyu2xhltfu Nzuqb8xkfw33hX83Y49aT ExbKWEcEZC8PRGuOIRguB byiv7goO9oQz8+SZwei0s sy2fwsGm9FeLw DVLromVegZzbWZQ6o1OyE u87Y6GimUgwl9SwDfz3fv 52qXQqy9U4vAU7LYwtKMF jyG3qAKniKbL5 GAFsQwYpoY99kRUqABxjT l2mmYpqhGruBY9jNCUunk icORSnhE6oKAXykAHzxCd yVJ6vRDVcbcem y576NxImVZO7APEipHViH 6MtoW9iCzKaCIFgQLLdD4 RbgXNeUGcgV889OXwsGuT 3PSCiicChA9Wv SACczCeaGoN3o2F3Uq1Vh 6ZbaahrJSD8XGnbHRYoOq SsJyXqQzK5H9ZnQjb2YTP zzJgjUY8hW9Xw LGEpiypbhchafCT6PHRtP NKolS93lACmVHrhZj1si4 H5k624INGjHIAjoV19Xm6 udDogMTBwdCBU mH2kdffdq3gyoyzsJlJiO UFiFAo0SSo7HEZgvUmzMg QhQOK3ZrO0ZWK9zMVxoJ6 bmNvfulywqG2u Oyc+W29kwV2nDPA3JLE7m gsxUAYtahVkGJ59HW02C9 RyPjwvdGFibGU+PGRpdiB nsRxvJZ6vYwHg n7wmc5JcMKqdO0BiEIZnC HjmNyn8DYGhSPP6sYR0gF 7nKXCuVMneu6B7aKD6R4I bhqKqmb6eq8fb XXAnYRflF27ywVYxr6K3V DCrqQQ8VNFygHmkTvXasC 93Oyc+KXBwbTvgw0SqItc mi6vta4hgrJe4 QfChFDKljlUsiDqzFUB1d 3PhXz53Q88pLIigTRSnHP GmQBKbIKDuxZljkv9vcP2 wIi8+PGNvbCB3 xHI2sS5iIVKlCwJ5OKhnJ 089JwZuqVJdVxrow1ssk9 iuwMr2LrWkCNNrctZenXa nDES2s0CwHj74 Q91wAHbtGOSvAOCyBPUlY XGjuSwqcg8gmY7gQh3+PC 3uu4szwm85bL51uZF+PHR mLSX5jStnMNls THIjlE9vRApuZkW3DTNhR wDybN30wUVoLVobBm9dqP ujcHdqPR6xPTImgcgva60 4JfYtq6jdPNAz pIEbWMmzGTT2D89ch1O8N XXrCIRdHYU5iHW5nA8oxU lnbjogbGVmdDsgdmVydGl gFJomPYktN630 IHRvcDsnPlBhdGllbnQgT jAbKFn8L7TqSwe1XNCmyW fyXS1taCItZTcyXd1ayTf nsVlcZR3cYONu pbnwa912UfZvs9yfLKYtd CQuNDwzUUJ3D92eu1G2ON JdTJNmLDY2wQE3uF3ucZp nbjogbGVmdDsg tvTqeNmaWBbbYUjkG641P HRvcDsnPkJpcnRoIERhdG K1VM09IM46fGSsp5B1aVP 7T1RqWZHgwgvs rjfxtIR7SIDxZJRraI04J m9isPcjGh8bDSYgPVP9FB XepLCmC3IbfB6fNoIsRGR jPCLnH5RlfXRs HBwfS889GHlhKrU3LERqi yXoS5TqNUPooCgtByU2w0 D5Lg2CC3A4SP77OW50zDZ qb1O5xKW2K4Hh XNNqalncbkrjeLG4CQQsY IRcfV08Nz6zwVmmVf4qMD GzERD5EHApfSUuY9MmnJ1 yOiAjMDAwMDAw D3GllEQyLUmoL049ZWhcL zA2HAXgkeYfN4MkYAXknI sxMzK0h7L8Zv6XSRq5SS2 1YK95yDWni6E8 pEE9P8PtOSLzawynowufd EJ7XQIgRQOssY89Ev3hlS hpRr3sFQJiWAO1OJDwkYU mL3YtwG9oGqNc JLXxBEIgU5MwyBZaCIqpG 613KEucWqI8PBYmzoMjR2 GwSUBoyPwhBuG0y8U0Hf4 UYDJeWJ82RBS8 bQD3PV87HZ24B4HeWvpny GFibGU+PHRhYmxlIHdpZH RoPScxMDAlJyBzdHlsZT0 oHe2zWFOaYFOm oDqufLCePkBto2otZEJaC GqpAE9yiHmrJ1YtzND7CR Ecy6i8Cy18Y87lP8IfwXK +NODklMT5aDH8 kO4dIdTaXyR5RMcaK349T qDzaGNxPbsnm5zcm1pgrV r3KxX0DWNrekKbtQkfKQD 7z6XbNk07W09l IHdpZHRoPSIxNSUiIHZhb Hktui2sjZ6gPz9+PGNvbC Q9yTM0rG6yZjZoKzF0AXw qX480GuZfzTQf Ahnbb8xge8ozoLy1ScOlH QVzyzSqqZkiVSB9t7PlPl 71G6HjcDmgy5DuTnq5qw7 3vENlg4J7zPZ4 E8KcCMAxxwqnkABhdUteE J6cKNRxfffhCYPqjO0sQC XdZ0k2NsFuUgX4VNjdW3B yezR8KZAxdVBl ZRrsTII1D76wd4T7WGYrQ NUbSTG7bZZ9dL6nyDxyjk ogbGVmdDsgdmVydGljYWw dHOqdZ539QAGk fCrcPJFapI5fBMJomAHaw SfpYH5fVFLixhlhYwOWFD REWSwgSEFOTkFIIEdSQUN TCG93FG01pFJm k4I9hEY5N5JoALFxcuxcj uxmdTS3YCVpMBZgaK90jM UeKFkmYx7aw3G1e821UFS yFUVvfU69Ei7u xVvdRAGkyHJYeC5gejqjv 7hrovenQdKmBBDxMPx7TE d2VRXfySnrTpWyDLD3ReA 4JPE6pYSvtC5s rQhumkyloO6oIgd+MDMvM DkvMjAwMTwvdGQ+PHRkIH J5zVdbJIuhQBVbpF2cZPM mW4i8KeZmAmZ6 GDecL9PlTZSjdczmRc28e A3nGrFzBqB9FOjxA6Kgns Y7YOUtqOYkJVcnXEJ5N58 ub7E4DHKvSIEi CDI1nHH7yX0qoTgxciwwa GVmdDsgdmVydGljYWwtYW gsB827XREgwQlkCcYwFCs aDVYmPA54BP08 nESpw5V8fIE5Y3FnWTVff axtllwjyPN7RFRfOWWucI 13zEReGHouRw2yh2N5b23 0FIVwSDRxxN53 Hq5lsLeoGEBatMMQnN8te gyli1edmbrqXwUfGHWvZU a5BNf9BYXjeDuoXrAkFRH 3KuE1ROB7xZOs dG4siCumyfiaeU4qXdo+R zEXOVkEQO78FT42xOWvz9 K9sKA2D2JfSRJkpmhclkz jcWU8HDYgFUWa qY33aHLkVNnjJr4px8X5q 816URPmPVGkjD04Bk8tyD kvBQAyzBQHbT7dixfzb4u vcjogIzAwMDAw OAe5LFu8DNInhPdzHfXnX AZ4BgJ4NAT6qXKlrG6ezO qdcdpgrA6pEpm+W4G6K6P kPjwvdHI+PC90 RNUzMI72fLYqmYMgp4alv Ht7LoBxEBDcETK4uHbiTR kmz9IeZMYsX92scJWiz8D 6IGNvbGxhcHNl GlWpgNV4pC0lATutdyrum 5kvtnnzUvgeh2fptn39jN 38X53lEMthYOVzILXbCLD nLXLxiJymei5k bW2dFt3+CGNwaCQ7lID4g K6gCtFzIxO4BZvjT178Sd FybTFsRggxb6ytx1pzsKy 9IjIwJSIgdmFs qYqcNPL7z9HxKs34Q82jZ HdpZHRoPSIyMCUiIHZhbG zvsn6erC1gGl2+UL0gz1n mhg55vG49sKZ+ XNGcTQT7bCqxDKrsMRRpw E1dYBrdTjP8OVFqNoVfpE 82xQVmJWddIg7skReqiRi tUA1oALTetdks r840AiXbc8zpIQIpfIZsV VylTGI1Z51dn5X1WPJiRS FjCIZ6aFG7mV7njOutara gbGVmdDsgdmVy gSixLOwaSDbqC277AKGwx MdlZmRreYFxM2ijmqOXOL 1lOjwvdGQ+QJOaAVU9hQq mKZeaBQKnhG0e YFZgA0k5RjGqWwH0QTnyM 1LhksS4FIOggCKnXCFocT VUuZ6tbffxl8wotgqsNsP qSLOdUPg4YMw5 YNPjqGymIeJlFXO9RyR4L HR0aBNbsM8cvSynqfslpS 9wOyc+RklOOjwvdGQ+PHR bYAS2uNoxQVam ZIMjlD3zDJNzS7y4ZeObF mW7OTjgM3FfkxQ6DPAtfS QaDPDufJECeJ8umyosx2o vcjogIzAwMDAw VQz7BBm0RJNavWurQrQhB FI6AfO2OZS4iGCgtK7rbE jupugypA7eVxs+TVJOOjw vdGQ+PHRkIHN0 eOydTCckYELwvE8zCPFwN 4p4HbLeHbA1TPqeZ1Kszf M9EADswEGqZJUyrGLBdZ0 mkhdem5ymaday FdDaDFVgPBy5GAu0DTCuf TmyHuBcSDL2DzH0TZF4fD YdmQ4kiNpxaymodE7yLnj +JMQ7MZH4FS38 LV36J8CjZqslcVZxaHN+P HRhYmxlIHdpZHRoPScxMD BkScSkvJdcBX7vSq5qJNB yLWNvbGxhcHNl OiB (more content not included)... Normal [facility]gent Care Note- Provideron 04-06-2021 Urgent [...] and Plan Diagnosis Sprain of left foot ([id number] S93.602A, Discharge, Medical) Plan Condition: Stable. Disposition: [...] she can arrange follow-up as needed. Normal [facility] ED Clinical Summaryon 2020 ED Clinical Summary [facility] ? Urgent Care [address] [place] [address] Clinical Summary PERSON INFORMATION Name: LEIGH MONTOYA Age: 20 Years Sex: FEMALE : 2000 MRN: Acct#: Visit Reason: UC - Ankle/Foot/Toe Pain or Swelling; LEFT FOOT PAIN Arrival: 04/05/2021 16:12:07 Discharge: 04/05/2021 17:50:00 LOS: 000 01:38 Check In: 04/05/2021 16:12:07 Checkout: 04/05/2021 17:50:00 Address: [facility] [place] [id number] PCP: Flex Wang DO PROVIDER INFORMATION Provider Role Assigned Unassigned Monica Dunn ANALYTICAL SCIENCES DIRECTOR Nurse 04/05/2021 16:14:32 Paul Atkins PA-C ED [...] With: Address: When: JEFF JESUS [address] [place] [id number] Business (1) , only if needed With: Address: When: Flex Wang [address] [facility] [place], [place] [id number] Business (1) Within 3 to 5 days DIAGNOSIS: Sprain of left foot Patient Understands: Yes - Patient/family/caregi nela verbalizes understanding of instructions given Comment: Normal [facility] ED Patient Summaryon 021 ED Patient Summary [facility] ? Urgent Care [address] [place], [place] [id number] PATIENT DISCHARGE INSTRUCTIONS Patient Information Name: LEIGH MONTOYA Age: 20 Years Date of : 2000 Reason For Visit: UC - Ankle/Foot/Toe Pain or Swelling; LEFT FOOT PAIN Arrival Time: 04/05/2021 16:12:07 Primary Care Physician: Flex Wang DO Attending Physician: Nirav Nunez Comment: Patient Education With: Address: When: JEFF JESUS [address] [place], [employer] [address] [address] Business (1) , only if needed With: Address: When: Flex Wang [address] [facility] [place] [address] Business (1) Within 3 to [...] ? As (more content not included)... Normal [facility] Recordon 021 Urgent Care Record [facility] ? Urgent Care [address] [facility]. [place], [place] [id number] PATIENT DISCHARGE INSTRUCTIONS Patient Information Name: LEIGH MONTOYA Age: 20 Years Date of : 2000 Reason For Visit: UC - Ankle/Foot/Toe Pain or Swelling; LEFT FOOT PAIN Arrival Time: 04/05/2021 16:12:07 Primary Care Physician: Flex Wang DO Attending Physician: Nirav Nunez Comment: Visit Diagnosis: Diagnoses This Visit Sprain of left foot (S93.602A) UC - Ankle/Foot/Toe Pain or Swelling ([id number]) If you received any narcotics, sedation, or [...] With: Address: When: JEFF JESUS [address] [address] Business (1) , only if needed With: Address: When: Flex Wang [address] [facility] [place] [address] Business (1) Within 3 to 5 days Medication Information: The exam and treatment you received today in the [facility] were for an urgent problem and are not intended as complete care. It is important for you to follow up with a doctor, nurse practitioner, or physician?s bankruptcy legal assistant for ongoing care. If your symptoms [...] so we can reach you if necessary. [facility] has provided you with a complete list of medications post discharge. Please inform your auto body repair estimator/provider of your visit and for further instruction [...] are no br (more content not included)... [facility] XR Foot Complete Lefton 03-20 [...] Vishal Fernandez 04/06/21 8:27 am Technologist: NELIDA [facility] Coding Summaryon 08-01-2020 Coding Summary HTMLBase 64 XmmmkiycESj7xCy+PGhlY WQ+WJ9HSGNnD70pdTOtrO 9TC8aEXL3SNSBMYPICGD0 DAJ8rmNL9KFpaH5PobkYo AdvojRYtEL50VZg5MMH8b FllBJygjQ0ccXSkC3e6Qj PgSY30rJ82YYoqDBIfNhE 3LjZpbjsgbWFy J7jtCmMtcRXeJfv+PHRhY mxlIHdpZHRoPScxMDAlJy VxfHljYV4cSq4iWAQeZUN vbGxhcHNlOiBj c2jdDKOmKTztOO4krRwuF 3AruAX8QGCgx4u6Zj38iA I+XIJtWHN6oWphAGrji71 2FnZek6kdCIU2 yORqJLxqOSX8J51ug5A9H TXiABZsAIF9tSF8hL5udY fgeirbH3KgbHGfVvD1BWE 7bFUltK6fnWnm wqwnpW7rLit+Y58HRZ8PZ VRANJ3YWnh4Z3VkAqbdlM I+QV23NTLsFK76wDAetGU dm4hpcSb0BdEh NRSxPBD7vJetHBvea3VcP YLzQ40deCMda0U1KRFzhY bjxFQmVzBhkFM1tL2vQBc yjxrtu6tosyua Lcgkl7uace29rI34F73kJ GynIUDnLMK1VRBfJYRxoI nrsr5ibJ6rLz5+ZSnxh2y at8odxTx0PsMi NXXcwgXtrHawJYT1p4ZxL s09T3AjeZpdg4QxKku3av 32xJLer5O3hVM2PDvuYLB hmX0gUHiqJtO1 OQEtZmPaiR92jFAbKImwP u2pjYpfxTvlDT7iGVNhsm lmUZCigD0hEMLikMJfmYb bZW5kBQNxlmge i056VaFhLUL9ZKQjlCSeK 6UigV9rWrKtSYWyORNqT5 ZxpSGrBKcyI865OByrUpB 1URHgtrQqZ7Ju YMQumMmrKhG6c8F7Eo2Ub 2QbsoqxXXO4ZCxaDSOfOf A4VpSuGxA2U1RvEkp1ORS kcDniKD1pX8Li OZIxartwznvkuOB2PNTmW GObgD09nNXgFYdwWo9xw5 S1o392BQOgYXFnsU20Uy9 udDogMTBwdCBU oI9phhnfo1qzlgpfKpLmQ EMkFXp0HXn9USOxiOkbNa UtTKO2SuJ6LLH4pDXffG2 gaKcwaszogR5b Oyc+I73qlS8lNGK5VYH5q dnwNCVctnBzFN05MG90B9 RyPjwvdGFibGU+PGRpdiB rtZzuVR1kAnXk z6kga4XxYPqwS8KcYGBuU HvzTid4DYReLHU1aJY2nJ 6cDNFoUCcta2F1eGF4N6S citBisj8xn9oj RVXvSMxfA54bpSBmq2G0R DPdhMP8VQFlmFaiReXabO 93Oyc+LSDpdGyom4GmFvt uv4ueq2zjePt2 AgWhVBCdnfXxwJuxNTY8z 2GkFl29X44iUYfaQCFfQK PlYWQzOEBxdOzpns5zuS7 wIi8+PGNvbCB3 kWU5fR3cEOVdXiP7LEqlD 212JmOwsLYqAioxn5cfz8 pztFh9FiDnRHNdqgFobVo wRUE3z3EsYq20 X93eUEomYAAnTRZrJMQjX DBocDusbz7kkA5lFs6+PC 7bv5ecak24wY15aVP+PHR uLET0cDnqYHca WQKluG0oDCnjFwG5OGZlQ sRbvE36pMUcXDlaNr0iyR fjhMweRE5tXKSjkcngq81 6UsLfi3wmTOGe aBWiQCquXCM9A42fs5W8A YPyBFIaJTV3kGV7eD5jsC lnbjogbGVmdDsgdmVydGl aTToyQOjhW829 IHRvcDsnPlBhdGllbnQgT eAnFPq1P7QcEhm2BDDluH ljWN3coLNbEIrgCl3yfHq blJlmLR1nZFPq ahmhy440DfFaw1ioPRIjj CStPXxtCNW3R49jc4U0EZ WeKHSaREC1nWH0tH1spOb nbjogbGVmdDsg siAljDoeKKkjWCedG132Q HRvcDsnPkJpcnRoIERhdG I8ZY72IB20lURhc1A9aOK 2W2DgPYVoukeo grpylJT6HNRhTREamF39L u6yjHkrIi1qSDRgJHA2JV ZogRYpU8JvhD1sRpXqOIA dEWSwX5HbsICz XDrvQ764LZwxOxC3XCGic dMlQ2CnCTJtwQsaSnN4g2 Y3Yj8PP2M0SV67GV78lAE ah2K8cKZ9Q6So DLNnhmkuejkccLH4IFLfD RClfJ02Fz9bzIqpKv5xEU MpZXJ0VYEecIJcK5OfyI9 yOiAjMDAwMDAw D3MybMLpVBbsM484IBfyZ fT2POEndjEqO9GtWXLxkQ ncCgD8a6H4Wu3DXAk1WA3 7BO37vPLje2P5 vYU4R4OcRTNclddkxegyq XG5XXVtAROkeA15Iq5sbL rsZg5cMIFyXJI3OBGtdRA eB7KidC4eKoVp IDItKEEwL2QpfNDxUXwdI 124XQcxPiM3AQOxzwPqL8 ThLIRreHofUlC9o5Q3Dn0 HCJBjBU02TZW4 tPM2AE27HU26Z2ZhAfvmp GFibGU+PHRhYmxlIHdpZH RoPScxMDAlJyBzdHlsZT0 qDk5zFDBwVFNs pXdxoRQoZdUce6xwIUYkA HdaAF5sfMxoI9FpcKK9IO Mvu0j3Si78Z45kK1SrdBX +NWLnfHP4dNQ6 pD9zMeVvVmX8MSysX899R iRtwSSeAfsto9htg2rtlO e2ObJ7EVNrvlTgmJofSDT 5a2UvJy77A19t IHdpZHRoPSIxNSUiIHZhb Umbwx8yjV7lJu7+PGNvbC C4iYC1qO0aQuYnDmD9IHv qG183XlJgqAGd Wazer5lio0oczEo7EdAuN MMkjqUalThsJSO6y2HwFz 01H0DmwBwgn2EhMhy9pf5 4rQNjw8V4fKH3 S3TxPIWzweefhBKfnNsiC F7bNFDnzkavXGUolL4uHA WpW9c5KjKgTsO5SSxwG9J cucM3BZNwtYXe TThtCWV6I43pq0U6AELcK FQsRIV3oIN8tC4foJzafd ogbGVmdDsgdmVydGljYWw gLKseX053GYTm jFeoZWOjmY7cKZPjnPPpr TwiMK7dOGExpalsHyZBUL REWSwgSEFOTkFIIEdSQUN SSH46VW12wHNx q6G7iAA8A5KgHOLhgbiii hhozOQ6DJJzANDzyB15iJ QdKWkkWg6ci3N7h070ZBM eIGMwdS68An9j aNroGDHuzANQzE9ekipxe 0rxzvndPwQaMOCeCSi0UG e9BSItpEdrUoYlXIB3ZyI 1FKH8pHApbF2j yUdjurpszL3fGbr+MDMvM DkvMjAwMTwvdGQ+PHRkIH Q2tCodPMwjQYPhuI9tBOP kL7i4KeNfXuU1 WKatK4QjBSEhwhmfAb85m F5fGsKwOlI3ZVkwK4Oett F4ZSTsdCJyPPalJFI5P24 wa1N1SLHtBPCc ZSJ5gLC6eP2ylQoilqtql GVmdDsgdmVydGljYWwtYW zyI576QAXkrYbjUnNtSPi tQEHeNF26BE70 vKYgg9M1rEZ7N3NgNHUfz cobkmaduWE1ZEQsWFZdoT 64iXMrHYggAn7hp4D1p72 4RILjCSUenP87 Pg6fyZlvVSRtoXWEqN0fe zopf8adytkhCfOyBARxJK e7DLs4TFUxpHjrKpTeUDF 7KxA0GJJ9nSZu nX2xxMmzjpdzmF2oIqa+R vJAOSdPJX77MP04lOKpd2 C4tKG0S6CmCKUepopkvjc olPC6SXGlMYBj cU24tKLzAZxeVj7wu6N4r 603HMJgWURdeH75Uo2zuS kkQRBndKTQqO3gptkhb1s vcjogIzAwMDAw OTz3CYp0VLQeuFygMmUzA HR4JqG2GSD2dWMsyF4fvB zjwuesyI8rSfd+C6E4J2H kPjwvdHI+PC90 ARKuZW48zSXriCIkj3qfd Yp2LvDpVGHtWZT8jYtlQZ fpm9PlLAEuH98dxRBud4X 6IGNvbGxhcHNl DaTqnZG2uV5nLJbeofvkn 6flywosRypvf2ppyd89vM 26D76dFDgeSSVeEHIfRIG lYPRveDvryi7l tK8dIc5+UPUeqJL5bPW9u W6xQtMkHsH3GPmbM595Bn IktJHeIuikd3rnn6fqrOn 9IjIwJSIgdmFs rNxaRWC4n1FkZf00W44sC HdpZHRoPSIyMCUiIHZhbG tppw6qkZ5dQm0+OR1ox7v oxd16dH63vIF+ USSbUMC8vEudXGhkGIEon D4hGSmtInU4YHYvGhOssY 27eITsYNczLl2ndOnlxRr iUX4lQZTjvuko o429NtIry8ymORSwdMKvB BzlUOH9V22qz9C6WQNiXH IqTQP4iAN9kT6kdIlsuwj gbGVmdDsgdmVy oIuoYRqaBHapD362ODLiy FurSoIjeJYwO0lvgeRKLF 1lOjwvdGQ+QAGzHTJ0xPb aBTbuPLPtqI2y KJKzL3l2OcZkKjP7PHhoO 4TlkjP1QFTelBAcOXIyoQ OPeF6qqmlat2zpwsayKfG iVKJaIRq5WKe5 MVCalOnyYnSiFTV5UrL3D SD6mWGvlQ3oxLklcxsafO 9wOyc+RklOOjwvdGQ+PHR lDQC1iSjaLIre UPVqqT4bVQHhN7i5RhDwV vU4LDxnR9LcmoU1COJykU OkHMLqiAEOqW7qiqzpj3n vcjogIzAwMDAw XEp2RIi0KTClmYhrImPsL BK8EqC7TOI3cOJyfX2deK xarbgkhV5aUez+TVJOOjw vdGQ+PHRkIHN0 kFzvDFxsELLruF8bOWRmD 4l4ZqVnSoW4EXauD1Ystx Q9EMRykJYsGQBvqTCQgP1 wuyuko3pydlnr GcFcJKJtDYw5XIg7VZGkc EsaTlUdKDN0UfO1KXQ5vS LwcO5dkFyaskuyxV9ySig +ZTE5OAK0EM81 BF34E2DeDzalwOGguNH+P HRhYmxlIHdpZHRoPScxMD ZrIoOusRdqOM1zMt9xRMG yLWNvbGxhcHNl OiB (more content not included)... Normal [facility] C Throaton 07-31-2020 C Throat Ordered by Discern. Normal throat regi isolated No pathogens isolated Normal [facility] Comment on above: Performed By: #### [id number] ####[facility] (DEFAULT)[address] [place] [address] ED Clinical Summaryon 2020 ED Clinical Summary [facility] ? Urgent Care [address] [place] [address] Clinical Summary PERSON INFORMATION Name: LEIGH MONTOYA Age: 20 Years Sex: FEMALE : 2000 MRN: Acct#: Visit Reason: UC - Sore Throat; THROAT PAIN Arrival: 07/29/2020 09:44:22 Discharge: 07/29/2020 10:23:00 LOS: 000 00:39 Check In: 07/29/2020 09:44:22 Checkout: 07/29/2020 10:23:00 Address: [address] [place] [address] PCP: Flex Wang DO PROVIDER INFORMATION Provider [...] Negative . Impression and Plan Diagnosis Pharyngitis (GJB18-XL J02.9, Discharge, Medical) Plan Condition: Stable. Disposition: Discharged: Time 07/29/2020 10:17:00 (more content not included)... Normal [facility] ED Note - Provideron 021 ED [...] Negative . Impression and Plan Diagnosis Pharyngitis (ZUG61-ST J02.9, Discharge, Medical) Plan Condition: Stable. Disposition: Discharged: Time 07/29/2020 10:17:00, to home. Patient was given the following educational materials: Pharyngitis, Lwsq-fg-Vbxq, Pharyngitis, Yrpr-hl-Fnuv. Follow up with: Flex Wang Within 2 [...] 07/29/2020 10:20 EST] Patricia Meeks PA-C Normal [facility] ED Patient Summaryon 021 ED Patient Summary [facility] ? Urgent Care [address] [place], [place] [id number] PATIENT DISCHARGE INSTRUCTIONS Patient Information Name: LEIGH MONTOYA Age: 20 Years Date of : 2000 [facility]: [id number] Reason For Visit: UC - Sore Throat; THROAT PAIN Arrival Time: 07/29/2020 09:44:22 Primary Care Physician: Flex Wang DO Attending Physician: Patricia Meeks PA-C Comment: Patient Education With: Address: When: Flex Wang [address] [facility], [address] [place] [phone] Business (1) Within 2 to 4 days [...] Follow these instructions at home: ? Take zeoo-vzr-ulhfmbr and prescription medicines only as told by [...] 10/22/2008 Document Revised: 04/18/2018 Document Reviewed: 06/11/2017 [email or web address] Patient Education ? 2020 [employer] [place]. Medication Information: The exam and treatment you received today in the [facility] Emergency Department were for an urgent problem and are not intended as complete care. It is important for you to follow up with a doctor, nurse practitioner, or physician?s bankruptcy legal assistant for ongoing care. If your symptoms [...] so we can reach you if necessary. [facility] Emergency Department has provided you with a complete list of medications post discharge. 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 Normal [facility] Strep Aon 07-29-2020 Strep procedure control Pass Normal [facility] Comment on above: Performed By: #### [id number] ####[facility] (DEFAULT)[address] [place] [id number] Streptococcus A Negative Normal Negative [facility] Comment on above: Performed By: #### [id number] ####[facility] (DEFAULT)[address] [place] [id number] [facility] 021 Urgent Care Record [facility] ? Urgent Care [address] [place] [id number] PATIENT DISCHARGE INSTRUCTIONS Patient Information Name: LEIGH MONTOYA Age: 20 Years Date of : 2000 Reason For Visit: UC - Sore Throat; THROAT PAIN Arrival Time: 07/29/2020 09:44:22 Primary Care Physician: Flex Wang DO Attending Physician: Patricia Meeks PA-C Comment: Visit Diagnosis: Diagnoses This Visit Pharyngitis (J02.9) UC - Sore Throat ([id number]) If you received any narcotics, sedation, or [...] Flex Wang [address] [facility], [address] [place] [phone] Business (1) Within 2 to 4 days [...] and treatment you received today in the [facility] Care were for an urgent problem and are not intended as complete care. It is important for you to follow up with a doctor, nurse practitioner, or physician?s bankruptcy legal assistant for ongoing care. If your symptoms [...] so we can reach you if necessary. [facility] has provided you with a complete list of medications post discharge. 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 Take wxpv-sur-slkrqfy and prescription medicines only as told by [...] help righ (more content not included)... Normal [facility] Coding Summaryon 06-27-2020 Coding Summary CODING DATE: 06/27/2020 [facility] STATUS: Home PAYOR: Commercial Insurance ADMIT [...] Nano Padilla Date Saved: 06/27/2020 12:37 pm [facility] ED Clinical Summaryon 2020 ED Clinical Summary [facility] ? Urgent Care [address] [place] [address] Clinical Summary PERSON INFORMATION Name: LEIGH MONTOYA Age: 19 Years Sex: FEMALE : 2000 MRN: Acct#: Visit Reason: UC - Ear Pain; UC - Ear Pain; RIGHT EAR PAIN Arrival: 06/18/2020 15:00:59 Discharge: 06/18/2020 15:27:00 LOS: 000 00:27 Check In: 06/18/2020 15:00:59 Checkout: 06/18/2020 15:27:00 Address: [address] [place], [place] [id number] PCP: Flex Wang DO PROVIDER INFORMATION Provider Role Assigned Unassigned Monica Dunn ANALYTICAL SCIENCES DIRECTOR Nurse 06/18/2020 15:03:15 Alessandro PA, Marv ED PA 06/18/2020 15:03:24 VITALS INFORMATION Vital Sign Triage Latest Temperature Tympanic Temperature Temporal Artery Pulse Rate O2 Sat 98 % 98 % Respiratory Rate Blood Pressure /78 mmHg /78 mmHg MEDICAL INFORMATION Medications Given: Allergy Information: sulfamethoxazole; ibuprofen PHYSICIAN DOCUMENTATION DISCHARGE INFORMATION: Discharge Disposition: Home Discharge Location: Home PATIENT EDUCATION INFORMATION Instructions: Otitis Media, Adult, Gymf-yu-Scxl Follow-Up: With: Address: When: Flex Wang [address] [facility] [place] [address] Business (1) Comments: Begin on the amoxicillin-clavulana te antibiotic take every 12 hours for the next 10 days Follow-up with your primary care physician in 3-5 days for reevaluation, sooner if any worsening symptoms DIAGNOSIS: Otitis media, right Patient Understands: Yes - Patient/family/caregi nela verbalizes understanding of instructions given Comment: [facility] ED Patient Summaryon 021 ED Patient Summary [facility] ? Urgent Care [address] [place] [address] PATIENT DISCHARGE INSTRUCTIONS Patient Information Name: LEIGH MONTOYA Age: 19 Years Date of : 2000 [facility]: [id number] Reason For Visit: UC - Ear Pain; UC - Ear Pain; RIGHT EAR PAIN Arrival Time: 06/18/2020 15:00:59 Primary Care Physician: Flex Wang DO Attending Physician: Marv Shannon Comment: Patient Education With: Address: When: Flex Wang [address] [facility] [place] [id number] Business (1) Comments: Begin on the amoxicillin-clavulana [...] Follow these instructions at home: ? Take qanz-hnd-etvzodr and prescription medicines only as told by [...] 10/22/2008 Document Revised: 04/18/2018 Document Reviewed: 05/27/2017 [email or web address] Patient Education ? 2020 [employer] [place]. Medication Information: The exam and treatment you received today in the [facility] Emergency Department were for an urgent problem and are not intended as complete care. It is important for you to follow up with a doctor, nurse practitioner, or physician?s bankruptcy legal assistant for ongoing care. If your symptoms [...] so we can reach you if necessary. [facility] has provided you with a complete list of medications post discharge. 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 Any specific questions regarding your chronic medications and dosages should be discussed with your primary care physician(s) and/or pharmacist. New Medications [facility], [address] [place] [phone], [phone] amoxicillin-clavulana te (Augmentin 500 mg-125 mg oral [...] media, right (H66.91) UC - Ear Pain ([id number]) UC - Ear Pain ([id number]) If you received any narcotics, sedation, or any other medication that causes drowsiness for the next 24 hours, unless otherwise directed: ? Do not drive a car. ? Do not operate machinery such as power tools, lawn mowers, drills, sewing machines, or stoves ? Avoid alcoholic beverages and drugs for allergies, n (more content not included)... Normal [facility] Note- Provideron 06-18-2020 Urgent [...] Impression and Plan Diagnosis Otitis media, right ([id number] H66.91, Discharge, Medical) Plan Prescriptions: [facility] prescriptions Pharmacy: Augmentin 500 mg-125 mg oral tablet (Prescribe): 1 tab(s), PO, q12hr, for 10 day(s), 20 tab(s), 0 Refill(s). Patient was given the following educational materials: Otitis Media, Adult, Vvig-ef-Jbsd. Follow up with: Flex Wang Begin on the amoxicillin-clavulana te antibiotic take every 12 hours for the next 10 days Follow-up with your primary care physician in 3-5 days for reevaluation, sooner if any worsening symptoms. Counseled: Patient, Regarding diagnosis, Regarding diagnostic results, Regarding treatment plan, Regarding prescription, Patient indicated understanding of instructions. Normal [facility] Recordon 01-30-2 021 Urgent Care Record [facility] ? Urgent Care [address] [facility] [place] [address] PATIENT DISCHARGE INSTRUCTIONS Patient Information Name: LEIGH MONTOYA Age: 19 Years Date of : 2000 Reason For Visit: UC - Ear Pain; UC - Ear Pain; RIGHT EAR PAIN Arrival Time: 06/18/2020 15:00:59 Primary Care Physician: Flex Wang DO Attending Physician: Marv Shannon Comment: Visit Diagnosis: Diagnoses This Visit Otitis media, right (H66.91) UC - Ear Pain ([id number]) UC - Ear Pain ([id number]) If you received any narcotics, sedation, or [...] Flex Wang [address] [facility] [place] [address] Business (1) Comments: Begin on the amoxicillin-clavulana te antibiotic take every 12 hours for the next 10 days Follow-up with your primary care physician in 3-5 days for reevaluation, sooner if any worsening symptoms Medication Information: The exam and treatment you received today in the [facility] were for an urgent problem and are not intended as complete care. It is important for you to follow up with a doctor, nurse practitioner, or physician?s bankruptcy legal assistant for ongoing care. If your symptoms [...] so we can reach you if necessary. [facility] has provided you with a complete list of medications post discharge. 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 Any specific questions regarding your chronic medications and dosages should be discussed with your primary care physician(s) and/or pharmacist. New Medications [facility], [address] [place], [place] [id number], [phone] amoxicillin-clavulana te (Augmentin 500 mg-125 mg oral [...] Follow these instructions at home: ? Take txds-kjg-chwlxtk and prescription medicines only as told by [...] (paralyzed). ? You (more content not included)... [facility] Consent Formson 04-28-2020 Consent Forms [id number] .[facility] Provider Orderson 04-28-2020 Provider Orders [id number] [facility] 04-25-2020 Coding Summary CODING DATE: 04/25/2020 [facility] STATUS: Home PAYOR: Commercial Insurance ADMIT [...] Nano Padilla Date Saved: 04/25/2020 02:38 pm [facility] .QC Respiratory Panel 2.1 (B ioFire)on 04-22-2020 Internal Control-Resp Panel 2.1(BioFire) Pass [facility] Comment on above: Order Comment: Order ed by Holley.[[id number]] Performed By: #### 6 [id number], [id number] ####[facility] (DEFAULT)[address] [place] [address] Respiratory Panel 2.1 (BioFi re)on 04-22-2020 Adenovirus -BioFire Not detected Normal Not Detected [facility] Comment on above: Performed By: #### 6 [id number], [id number] ####[facility] (DEFAULT)[address] [place] [address]95 Bordetella parapertussis -BioFire Not detected Normal Not Detected [facility] Comment on above: Performed By: #### 6 [id number], [id number] ####[facility] (DEFAULT)[address] [place] [address]5413 Bordetella pertussis -BioFire Not detected Normal Not Detected [facility] Comment on above: Performed By: #### 6 [id number], [id number] ####[facility] (DEFAULT)[address] [place] [address] 96015 Chlamydia pneumoniae -BioFire Not detected Normal Not Detected [facility] Comment on above: Performed By: #### 6 [id number], [id number] ####[facility] (DEFAULT)[address] [place] [address]772 Coronavirus 229E (Not COVID-19) -BioFire Not detected Normal Not Detected [facility] Comment on above: Performed By: #### 6 [id number], [id number] ####[facility] (DEFAULT)[address] [place] [address] 19326 Coronavirus HKU1 (Not COVID-19) -BioFire Not detected Normal Not Detected [facility] Comment on above: Performed By: #### 6 [id number], [id number] ####[facility] (DEFAULT)[address] [place] [address] 22713 Coronavirus NL63 (Not COVID-19) -BioFire Not detected Normal Not Detected [facility] Comment on above: Performed By: #### 6 [id number], [id number] ####[facility] (DEFAULT)[address] [place] [address]12 Coronavirus OC43 (Not COVID-19) -BioFire Not detected Normal Not Detected [facility] Comment on above: Performed By: #### 6 [id number], [id number] ####[facility] (DEFAULT)[address] [place] [address]17 Employed in healthcare? No Invalid Interpretation Code [facility] Comment on above: Performed By: #### 6 [id number], [id number] ####[facility] (DEFAULT)[address] [place] [address] Group care resident? No Invalid Interpretation Code [facility] Comment on above: Performed By: #### 6 [id number], [id number] ####[facility] (DEFAULT)[address] [place] [address] 16220 Human Metapneumovirus -BioFire Not detected Normal Not Detected [facility] Comment on above: Performed By: #### 6 [id number], [id number] ####[facility] (DEFAULT)[address] [place] [address] 32217 Human Rhinovirus/Enterovir us -BioFire Not detected Normal Not Detected [facility] Comment on above: Performed By: #### 6 [id number], [id number] ####[facility] (DEFAULT)[address] [place] [address] 40337 In ICU? No Invalid Interpretation Code [facility] Comment on above: Performed By: #### 6 [id number], [id number] ####[facility] (DEFAULT)[address] [place] [address] 80405 Influenza A (no subtype) -BioFire Not detected Normal Not Detected [facility] Comment on above: Performed By: #### 6 [id number], [id number] ####[facility] (DEFAULT)[address] [place] [address] 31658 Influenza A -BioFire Not detected Normal Not Detected [facility] Comment on above: Performed By: #### 6 [id number], [id number] ####[facility] (DEFAULT)[address] [place] [address] 04689 Influenza A H1 -BioFire Not detected Normal Not Detected [facility] Comment on above: Performed By: #### 6 [id number], [id number] ####[facility] (DEFAULT)[address] [place] [address] 45251 Influenza A H1-2009 -BioFire Not detected Normal Not Detected [facility] Comment on above: Performed By: #### 6 [id number], [id number] ####[facility] (DEFAULT)[address] [place] [address] 43377 Influenza A H3 -BioFire Not detected Normal Not Detected [facility] Comment on above: Performed By: #### 6 [id number], [id number] ####[facility] (DEFAULT)[address] [place] [address] Influenza B -BioFire Not detected Normal Not Detected [facility] Comment on above: Performed By: #### 6 [id number], [id number] ####[facility] (DEFAULT)[address] [place] [address] Mycoplasma pneumoniae -BioFire Not detected Normal Not Detected [facility] Comment on above: Performed By: #### 6 [id number], [id number] ####[facility] (DEFAULT)[address] [place] [address] Parainfluenza Virus 1 -BioFire Not detected Normal Not Detected [facility] Comment on above: Performed By: #### 6 [id number], [id number] ####[facility] (DEFAULT)[address] [place] [address] Parainfluenza Virus 2 -BioFire Not detected Normal Not Detected [facility] Comment on above: Performed By: #### 6 [id number], [id number] ####[facility] (DEFAULT)[address] [place] [address]1278 Parainfluenza Virus 3 -BioFire Not detected Normal Not Detected [facility] Comment on above: Performed By: #### 6 [id number], [id number] ####[facility] (DEFAULT)[address] [place] [address] 73164 Parainfluenza Virus 4 -BioFire Not detected Normal Not Detected [facility] Comment on above: Performed By: #### 6 [id number], [id number] ####[facility] (DEFAULT)[address] [place] [address]23 status? Not Invalid Interpretation Code [facility] Comment on above: Performed By: #### 6 [id number], [id number] ####[facility] (DEFAULT)[address] [place] [address] Respiratory Syncytial Virus -BioFire Not detected Normal Not Detected [facility] Comment on above: Performed By: #### 6 [id number], [id number] ####[facility] (DEFAULT)[address] [place] [address] SARS-CoV-2 (COVID-19) RNA OZZIE+probe Ql (Unsp spec) Not detected Normal Not Detected [facility] Comment on above: Performed By: #### 6 [id number], [id number] ####[facility] (DEFAULT)[address] [place] [address] SARS-CoV-2 (COVID-19) RNA OZZIE+probe Ql (Unsp spec) No Invalid Interpretation Code [facility] Comment on above: Performed By: #### 6 [id number], [id number] ####[facility] (DEFAULT)[address] [place] [address] Symptomatic as defined by CDC? No Invalid Interpretation Code [facility] Comment on above: Performed By: #### 6 [id number], [id number] ####[facility] (DEFAULT)[address] [place] [address] Vital Signs Date Time Vital Sign Value Performing Clinician Facility 12-06-2021 16:30-0400 Body height 160.02 cm Ezequiel Melo Other [facility] Other 12-06-2021 16:30-0400 Body mass index (BMI) [Ratio] 41.62 kg/m2 Ezequiel Melo Other [facility] Other 12-06-2021 16:30-0400 Body weight 106.6 kg Ezequiel Melo Other [facility] Other 10-11-2021 14:45-0400 Body height 160.02 cm Ezequiel Dijessie Other [facility] Other 10-11-2021 14:45-0400 Body mass index (BMI) [Ratio] 41.98 kg/m2 Ezequiel Adamsjessie Other [facility] Other 10-11-2021 14:45-0400 Body weight 107.5 kg Ezequiel Melo Other [facility] Other 10-11-2021 14:45-0400 Diastolic blood pressure 79 mm[Hg] Ezequiel Melo Other [facility] Other 10-11-2021 14:45-0400 Systolic blood pressure 128 mm[Hg] Ezequiel Melo Other [facility] Other Encounters Encounter Date Encounter Type Care [...] Start: 08-29-2022 End: 08-29-[address] MIRANDA [facility] Facility:H1 Start: 01-12-2022 End: 01-16-[address] MIRANDA [facility] Facility:H1 Start: 12-06-2021 End: 12-06-2021 ambulatory Ezequiel Melo Other [facility] Other Start: 12-06-2021 Patient encounter procedure Ezequiel Melo [facility] Start: 10-11-2021 End: 10-11-2021 ambulatory Ezequiel Melo Other [facility] Other Start: 10-11-2021 [facility] visit new patient Ezequiel Melo [facility] Payers Date Payer Category Payer Unknown [id number] 2000 Unknown [id number] 2.16.84 [id number] 2000 Unknown [id number] 2.16.84 [id number] 2000 Unknown [id number] 2.16.84 0.1.587713.3.579.2.9 2000 Unknown [id number] 2.16.84 0.1.158451.3.579.2.1259 2000 Unknown [id number] 2.16.84 0.1.762454.3.579.2.9 2000 Unknown [id number] 2.16.84 0.1.271218.3.579.2.9 2000 Unknown [id number] 2.16.84 0.1.627039.3.579.2.9 2000 Unknown [id number] 2.16.84 0.1.587584.3.579.2.1259 2000 Unknown [id number] 2.16.84 0.1.290779.3.579.2.9 2000 Unknown [id number] 2.16.84 0.1.743979.3.579.2.1259 1959 Unknown [id number] Medicaid [id number] . [id number] Social History Date Type Detail Facility Sex Assigned At [facility] Other Evaluation note 12-06-2021 Note Date & Type Note Facility 12-06-2021 Evaluation note Encounter Date Diagnosis Assessment Notes Nov, Dyspepsia (ICD-10 - K30) patient states does have some bloating in the left center she does have pain noted. patient is advised that we can start levsin and refer to hospitality aide for food testing. [facility] Other Evaluation note 10-11-2021 Note Date & Type Note Facility 10-11-2021 Evaluation note Encounter Date Diagnosis Assessment Notes September, Bloating (ICD-10 - R14.0) September, Dyspepsia (ICD-10 - K30) September, Abdominal pain (ICD-10 - R10.9) [facility] Other Clinical Note 04-05-2021 Note Date & [...] This may take several hours. ? Take qlrr-dji-yvxnvtb and prescription medicines only as told by your health care provider. ? When you can walk without pain, wear supportive shoes that have stiff soles. Do not wear flip-flops, and do not walk barefoot. ? Keep all follow-up visits as told by your health care provider. This is important. Contact a health care provide (more content not included)... [facility] Clinical Note 07-29-2020 Note Date & Type Note Facility 07-29-2020 Note Patient Education Ma terials Follows:Disease Pharyngitis Pharyngitis is a sore throat (pharynx). This is when there is redness, pain, and swelling in your throat. Most of the time, this condition gets better on its own. In some cases, you may need medicine. Follow these instructions at home: ? Take bbml-nev-xkjhynm and prescription medicines only as told by [...] Reviewed: 06/11/2017 [employer] Patient Education ? 2019 [employer] [place]. [facility] Clinical Note 06-18-2020 Note Date & Type Note Facility 06-18-2020 Note Patient Education Ma terials Follows: Otitis Media, Adult Otitis media means that the middle ear is red and swollen (inflamed) and full of fluid. The condition usually goes away on its own. Follow these instructions at home: ? Take nene-snn-nezwsjo and prescription medicines only as told by [...] 10/22/2008 Document Revised: 04/18/2018 Document Reviewed: 05/27/2017 [employer] Patient Education ? 2019 [employer] [place]. [facility] Clinical Note 04-22-2020 Note Date & Type Note Facility 04-22-2020 Note Nasal swab performed without complication. Patient tolerated well. Education given. Patient verbalized understanding. [Electronically Signed on: 04/22/2020 15:05 EST] Miri Nuñez RN [Verified on: 04/22/2020 15:05 EST] Miri Nuñez RN [facility] History general Narrative - Reported Note Date & Type Note Facility History general Narrative - Reported Type Medical History PCOS Medical History Endometriosis Surgical History laparoscopy - endometriosis [facility] Other Reason for referral (narrative) Note Date [...] is able to get in before this. [facility] Other Reason for visit Narrative Note Date & Type Note Facility Reason for visit Narrative PATIENT HERE AT THE REQUEST OF DR. VERGARA FOR EVALUATION & TREATMENT OF BLOATING [facility] Other Reason for visit Narrative Note Date [...] of the side effects that were listed. [facility] Other Summary Purpose Family History No Family History Records FoundNo Family History Records FoundNo Family History Records FoundNo Family History Records Found Advance Directives No Advanced Directives Records FoundNo Advanced Directives Records FoundNo Advanced Directives Records FoundNo Advanced Directives Records Found Additional Source Comments INFORMATION SOURCE (unrecogn ized section and content) DATE CREATED AUTHOR 04/21/2021 [facility] DATE CREATED AUTHOR AUTHOR'S ORGANIZ ATION 11/08/2021 [facility] DATE CREATED AUTHOR AUTHOR'S ORGANIZ ATION 09/06/2022 [facility] DATE CREATED AUTHOR AUTHOR'S ORGANIZ ATION 01/31/2024 [facility] d[facility] Specialists EPIC FOR RECORDS PERTAINING [...] BE BASED ON THE PRIMARY CLINICAL RECORDS. [facility]. provides no warranty or guarantee of the accuracy or completeness of information in this document.
[2024-02-10 18:21] VITALS: BP 137/76; PULSE 93
[2024-02-10 18:50] VITALS: BP 137/87; PULSE 102
[2024-02-10 19:30] VITALS: BP 135/84; PULSE 87
== END 2024-02-10 19:45 | disposition home or self-care (01) ==
LOC: FBCO 07:06 → FBC 18:05
PROVIDERS: Visit Provider Obstetrics & Gynecology
DX: O13.9 Gestational [pregnancy-induced] hypertension without significant proteinuria, unspecified trimester (principal); O36.60X0 Maternal care for excessive fetal growth, unspecified trimester, not applicable or unspecified; Z3A.00 Weeks of gestation of pregnancy not specified
CPT/HCPCS: 59025

== ENCOUNTER 2024-02-12 20:56 | Outpatient (REF) | payer OTHER, SELFPAY ==
--- OUTSIDE RECORDS SUMMARY | 2024-02-12 21:01 | XMS_ITS | CCD ---
Author Organization [facility] Care Team Providers Care Corporate Responsibility Officer Name Role Phone Ezequiel Melo Unavailable [facility], DR MIRANDA Primary Care Unavailable JAI ., [...] Reaction(s) Facility (2 sources) Sulfacetamide Drug Allergy [facility] Other (1 source) Sulfonamides (Antibiotic) Drug allergy (disorder) [facility] Repository Medications Current Medications Medication [...] 29on 09-06-2022 . . Normal [facility] Comment on above: Performed By: #### 4 [id number] #### [facility] [address] [place] [address] Dr. Dat Wesley Age Gdln ACOG Testing 21- Normal [facility] Comment on above: Performed By: #### 4 [id number] #### [facility] [address] [place] [address] Dr. Dat Wesley DIAGNOSIS: Comment Normal [facility] Comment on above: Result Comment: NEGA TIVE FOR INTRAEPITHELIAL LESION OR MALIGNANCY. Performed By: #### 4 [id number] #### [facility] [address] [place] [address] Dr. Dat Wesley Methodology: Comment Normal [facility] Comment on above: Result Comment: This liquid based ThinPrep(R) pap test was screened with the use of an image guided system. Performed By: #### 4 [id number] #### [facility] [address] [place] [address] Dr. Dat Wesley Note: Comment Normal [facility] [...] do occur. . Performed By: #### 4 [id number] #### [facility] [address] [place] [address] Dr. Dat Wesley Performed by: Comment Normal [facility] Comment on above: Result Comment: Singh Sanders Dinkey Engine Firer/Fireman (ASCP) Performed By: #### 4 [id number] #### [facility] [address] [place] [address] Dr. Dat Wesley Reflex Criteria: Comment Normal [facility] Comment on above: Result Comment: The HPV DNA reflex criteria were not met with this specimen result therefore, no HPV testing was performed. . Performed By: #### 4 [id number] #### [facility] [address] [place] [address] Dr. Dat Wesley Specimen adequacy: Comment Normal [facility] Comment on above: Result Comment: Sati sfactory for evaluation. Endocervical and/or squamous metaplastic cells (endocervical component) are present. Performed By: #### 4 [id number] #### [facility] [address] [place] [address] Dr. Dat Wesley HCG,Urineon 11-03-2021 Beta HCG ( test) Ql (U) Negative Normal [facility] Comment on above: Result Comment: PERF ORMED BY: [address] [place] [id number] PATHOLOGIST [employer] MANAGER SULTANA PETE M.D. Performed By: #### U HCG #### [place] [id number] [facility] 11-03-2021 L - -------- Specimen: [id number] Received: 11/03/21 Status: AYDIN Johnson Num: [id number] Spec Type: Surgical Subm Dr: Ezequiel Melo MD Tissues: A Small Intestine - Biopsy/Polyp (SMALL BOWEL) Procedures: HE Stain/2, Gross/Micro L4 -------- Patient Age/Sex Location Account Attending Physician -------- Leigh Singh / [id number] Ezequiel Melo MD -------- SPEC NUM: [id number] RECD: 11/03/21 STATUS: AYDIN TRANG NUM: [id number] PAPI: 11/03/21 [facility] DR: Ezequiel Melo MD ENTERED: 11/03/[address] [facility] [address]: SPEC TYPE: Surgical DEPT: S ORDERED: [...] This case is interpreted at [facility], [place], [place] -------- Specimen: Received: 11/03/21 Status: AYDIN Johnson Num: [id number] Spec Type: Surgical Subm Dr: Ezequiel Melo MD Tissues: A Small Intestine - Biopsy/Polyp (SMALL BOWEL) Procedures: HE Stain/2, Gross/Micro L4 -------- Patient: Leigh Singh [id number] (Continued) -------- Specimen: [id number] Received: 11/03/21 (Continued) Signed (signature on file) Gabe Ellis MD 11/06/21 1703 -------- Specimen: Received: 11/03/21 Status: RAFAELChino Johnson Num: [id number] Spec Type: Surgical Subm Dr: Ezequiel Melo MD Tissues: A Small Intestine - Biopsy/Polyp (SMALL BOWEL) Procedures: HE Stain/2, Gross/Micro L4 -------- Patient: JennyrodriguezLeigh villatoro [id number] (Continued) -------- Specimen: Received: 11/03/21 (Continued) CPT Codes 34588 -------- -------- Specimen: Received: 11/03/21 Status: AYDIN Johnson Num: [id number] Spec Type: Surgical Subm Dr: Ezequiel Melo MD Tissues: A Small Intestine - Biopsy/Polyp (SMALL BOWEL) Procedures: HE Stain/2, Gross/Micro L4 -------- Patient: JuanJaclyn villatorolauren Craig [id number] (Continued) -------- Signed (signature on file) Gabe Ellis MD 11/06/21 1703 Normal [facility] SARS-CoV-2 (COVID-19) RNA OZZIE+probe Ql (Unsp spec) Negative Normal Negative [facility] Comment on above: Order Comment: Healt hcare Worker?: N Result Comment: Testing for SARS-CoV-2 by RT-PCR This test was developed and its performance characteristics determined by [employer]) and validated at the [facility]. This test has not been [...] is terminated or revoked sooner. PERFORMED BY: [place] [address] PATHOLOGIST [employer] SERVICES MANAGER SULTANA PETE M.D. Performed By: #### C OVID 19 [facility] #### [address] Coding Summaryon 04-19-2021 Coding Summary HTMLBase 64 QlxsjazbVOl5oNk+PGhlY WQ+DQ0KUPVkF68vgDBnkE 3ZS7tUSR7LDBQNBITMGA4 IEN2saKZ3RJeqX8WbzxSd NuajaZXrBH41HRh3KBY2v FhkYFyxlG7bxIWaU3f5Ko WaNT85oO43ZQapBRJcPlF 3LjZpbjsgbWFy G0wjAgQoqNUuMws+PHRhY mxlIHdpZHRoPScxMDAlJy JlkKhzBT9nJa2vUQRdCNC vbGxhcHNlOiBj s1ajDRRiLNiqPV7ylJusI 7XedFF2WGXni5q2Yq14xH I+HHOiUBH3zMjsXJcux08 5JaOtx7jyHOB4 nUSwNXfnMAG5Y53sn5M7A JGnDGOqUJN2gDN7iQ9waO nmuwecU4LvcDCgInU6FES 5fKBybB6zsNkc mzxmuK3rOpt+P47BQY7BF UKLCO1PNsl5P2WyXbyyuD I+QF33ZLNuNN22eUTskYO nj4rmlVm5JfQl MECpLZS1jElvXHpin9KwC JIkD33itMUpn1I7DUVnsG ohpDXjAqFhkQF2lX1gVCn xbvhox3oyrvqk Ylemq6mosg93pP60N17xI ZpgGMSwYLT0ONBlZSCrsS fasa9rzN1uKi7+POcyf4b ll6jgrBn9BgBb GYAaeeDcdJobJWJ7a1NzV t91X2MaqAycc8QaKcp9us 16iCLlm7A3iCB5IBraGHI ybT6jSYzxCiY6 YCYoMlNdsW27bELhFBbsA t8kdIiubDreSX4dNXBwci qnMHPvgH4zUAGafRCtoNu lAM6bVCNmdzqv a167GpKhFZF3KKHjpRBwE 4EonL7mOeDyTCCyYSIbV7 HrfUInWKrkZ719MIutWiB 4QQAolxCsO1Fz WJLjcBukQlO2p5J0Ab8Cd 8MabhshDHA4VGqgXRIyNr XzTnWeJzC4V9DfIsr1TXJ vhFrcRN8lU1Sx OEQkufmnxfmueGY8RHUeG QGnhT41dLDlOBweEw4gm4 S1o430HCOhLDWqmY55Xt6 udDogMTBwdCBU fL6kaseyi4tjfsezHbYdA VFpHCa8BKt0UUDcoEusIi ZvOOB0FiZ5DYI3pMWciO4 osDesklbogQ7b Oyc+P82imA6nKPX1CEY8q xkeJCValdVyWC69EZ03L5 RyPjwvdGFibGU+PGRpdiB xnYdsEQ5rBrZc x5cec6AbNWwnS3WyMRDaS DxdGcr2KRDmFPS9hMS3gY 4xFTHaKZfho1R2yJA3U5I hwpTxtq5gw8db KGGgZNytF58cpOBzk2F9W UNpjCU9ZXDfeZmdZxGjfJ 93Oyc+YWTdjMped9ThMwr gp7tnu4vfsDk2 AqPdKQIsfoHftPaaLHR0n 5TtFg91K64wZPetGGDlSI DyJDLeDYIvmOijom5frL5 wIi8+PGNvbCB3 xTM2gX3mCFSdQgQ6ABkwF 703VzPmnVLdKegqj7tii6 nqaCf3JmWcKGHlswCltHy zDFJ2s7LtLi82 E70pCQibRUKqBHCgSRZdF KCmjBaizq0xdT6eCi0+PC 9gl4pazi32oE97sNK+PHR mGVO1jXebJQnu AHTfuY6hNBeqKmV3PNKgY uKdjC89aBQgPOwgLp4fzR rosXoiII3oUWXswawsl85 4MhIvw4tyCSNk hWHbFLozNSS6L26rl0F5K HGaJGZfHTF0pHO1bJ3cvF lnbjogbGVmdDsgdmVydGl mPEtgXXnpN449 IHRvcDsnPlBhdGllbnQgT dRlEGb6F7YlOjg4LKYcvI ohCQ5aiTErWXjdSk3mxUi jnQauEJ6hFNAt aynym460JxLlc9hwZBVrw MRdGDiaMLB2F25yi0P2BA HwQBXqTVC2dXH4oW6orPl nbjogbGVmdDsg qfPlwPkcTBrfSWwpO780A HRvcDsnPkJpcnRoIERhdG E4ZV25HG33aQAbj0J3yZW 3R4AjTQRnpkoz wwffxVU2WINlNUOltY59W z8gcNkwDi4yDREiBLN7JA UohITfB7AueX3qAlRjIUB tABDdF2FkjGBf ATysN451LExzVgI5YEVcl vQdS9XeOFAhzGurJfM2s1 M5Ri5GO1O7HB26CR86pYQ on6E9sIM9R1Af GSMmzbjsehknnKM6QDVbL FZdeT38Xn2mzBddAe8oJY XxTAX5BHVoeQKeT6GouX9 yOiAjMDAwMDAw T6RqxVVmAAjjO783HItjG tF0LCIaveObY9BwNCBzhZ ocVkI8q1E1Kc2SFKm1QW6 1QR22pEUfu4A0 tAS3L4BkVGUqhllfdcvrw XI1MCOhFNVdwF99Hx0iwT etSw2dRAKqLZR2HKZvnMK oR0QguQ6hUoPg PSFaMAHeQ3JcoJFqDMkvO 760VDwhEoU9MFUzptNlF1 ByXGFdzSzoHdA4e2S7Ah1 WGGQoJS55VHY7 yZR2CB52CP12Q9ZwZnngs GFibGU+PHRhYmxlIHdpZH RoPScxMDAlJyBzdHlsZT0 pKh2zVXHlHYYx rArjtRWkUaZjn2arGTFpB LjuWE8fwFurP2FvjKO2YT Mvp0g6Wq15H23uC2AuuVL +IJLgeLO1fYU4 yQ8bHiJxBrQ1IHhkR703D wYegGXmMxsbd5upw5ykgE b4ZdO6DLLnipFbyZvoFTH 1c3ZxIy50X46q IHdpZHRoPSIxNSUiIHZhb Dpxxb7yoG1dGo1+PGNvbC M2bLX5fQ5bVqLsCvF5MWv xE690IvOhbHMz Ebddp7uog7vfeJt5QyCeX WNrmxKmwPwlPOU6j7PjRb 18J0XahDroe5HfPym7pq7 0fGAna7E7bWX1 Z1GyTRXsvbqkzMZdsZboT C4iGAJeijtkNREydJ2lPZ AzS9m1TyWkKrN7GSehL4I hscA5HEEjfDGq FKwkTLB8V80dx3H7YWHmS HAuMTE5lDA2vT6biLssza ogbGVmdDsgdmVydGljYWw rEIdyR362AJBz jAuoHXBosI6tGXRqbLMmn HzmDX0zLFEkiimvZcAFVC REWSwgSEFOTkFIIEdSQUN OUP73IW45zGLv s7X6yIL5C5IlUIEqylhyg bzfoSI4HFSoWGInmX56xL KkYXeeCn6rb8Y2t547ING iWUXvdS26Qc8k xUlkAXLntFIMxG6wzalxy 0zizqkhYjJaDILgLFc4CN j5NFGeuDixVvVmPRK3BaH 5XVT4bWDpnK9y rVyauhwhmZ6jNzo+MDMvM DkvMjAwMTwvdGQ+PHRkIH W9aBkxRXleWSUubO4tKQP gW5v2VvRaIiH7 STjcF1LcHXOibsenNy52u Q9sJpIrDyF1KAwmF4Ofkt R6QFSdhYZyKKwqWDR7K19 ur0B0OCUdKJSm VXW6eHF1zE9paPvnqzoiu GVmdDsgdmVydGljYWwtYW ocI241PVIbpSwsWeToODn aFBIbUF67ZF99 lEEdh6D2fTM0B2FvGYBkd wxvxfxfvEI7FKRlYQZubL 35aHWlNXqqCn7qq6U2k96 5VVVgZJBqpA75 Kw9poAchQFYnkAOEhK2rc sgds0ojiqggOqTeOWFdJD r0VId9TMTcnDahHoUhVRS 0OoR8SEL5dEAr aG4bhEknfmmnxD7hChu+R nMJVWeVNK16OS83mSEnk9 A2bFQ4L0DzLTDcfzvnala qgZL1VKZgBCGt zA18nQGjXEimKd0ei8Y4j 722SQGuXDNxdA59Im2wjZ yqCISgbRXGwF0kirtmh1o vcjogIzAwMDAw UZf2BEy0BDFthUbgNdBuO LP7SbX1UYU7sAOutL8omN jkxejrmH6kBsm+E4I3T2J kPjwvdHI+PC90 UUEbAK74bOGysPDyv4trt Yo9HzBzQESxZJR7wLcwOF uge5NiHGKiK56xeYUkd6E 6IGNvbGxhcHNl MrTueTT9qF4vICuzaihhw 8gqktjtAbjbu7xczo51hV 11E51lKBulNMKkPBZkKOD jMNQsyPnkdj8m lK7aId4+NUJrsCK0zXD6e W1nGbLuCcA4BLdfZ809Dv GnwETjXcvmx2xrd9zjlCq 9IjIwJSIgdmFs yNdeZKL8w7MiJf59M41uX HdpZHRoPSIyMCUiIHZhbG aqlj2nqX0tHk7+NK7pu1w wgq67vY94fJH+ HNZxHTL7aOkuTPcwCDJnd L5rEUymVwQ0ZMTkSiHpaX 44dTHwJNxpYp9cpJqsiSa fQF7qZBZyclxb r774RbZzi2cmCFFoyVRlJ CrmYPG7J43cp8H2NRCgDT DhKFO0zRA7oU2tuGpdymh gbGVmdDsgdmVy kYhgFFasYPfnC979JXCdn DqjOoLhiICyZ7cvfbJJMF 1lOjwvdGQ+IZNwVSE9lCk xADrlEYTybB9u DYTyG8w1SpXdCwE0JOzeH 7ZotnD6LUQwtDNpFTFxkV ZJtR5bicnrn2tbspjmCaG kDZGoJJk5VWc4 DWIbrBhtIrCyZHX5DhW7Q WI3kNLspC7ltTwzbfhbgZ 9wOyc+RklOOjwvdGQ+PHR vYCM0hTafAHgw AYRweC9oJQLfO2m3TtHbQ mY4KPmsY9QcetH8DVHmwC YnWVYnmUJWdR1siymer3n vcjogIzAwMDAw EXu2XAb3GWMqmLpbNtQwX ZM3DuF8GQB0lHHljQ6ddN nvrlocxR2mJll+TVJOOjw vdGQ+PHRkIHN0 zNtpVXzsKIPjeQ3uBFBtT 0l6CvBfZwP8OTzaB3Qpzt K4HHBqxCNtRHMwnXJPbF0 qbdrzy5xfuign KfFaXBQrMVw9FMp1XYDzy UyaYuKcZDE7GdF8BZY4dO TxyY4psQmfzwklhM0iIvv +FHD3RLY3RA56 YO73Y5AsQhffgBOrfUN+P HRhYmxlIHdpZHRoPScxMD InWoMxrLqsBY0wNl8hNPB yLWNvbGxhcHNl OiB (more content not included)... Normal [facility]gent Care Note- Provideron 04-06-2021 Urgent [...] and Plan Diagnosis Sprain of left foot (BDN69-VD S93.602A, Discharge, Medical) Plan Condition: Stable. Disposition: [...] she can arrange follow-up as needed. Normal [facility] ED Clinical Summaryon 2020 ED Clinical Summary [facility] ? Urgent Care [address] [place] [address] Clinical Summary PERSON INFORMATION Name: LEIGH MONTOYA Age: 20 Years Sex: FEMALE : 2000 MRN: Acct#: Visit Reason: UC - Ankle/Foot/Toe Pain or Swelling; LEFT FOOT PAIN Arrival: 04/05/2021 16:12:07 Discharge: 04/05/2021 17:50:00 LOS: 000 01:38 Check In: 04/05/2021 16:12:07 Checkout: 04/05/2021 17:50:00 Address: [facility] [address] [place] [id number] PCP: Flex Wang DO PROVIDER INFORMATION Provider Role Assigned Unassigned Monica Dunn OVERNIGHT CAREGIVER Nurse 04/05/2021 16:14:32 Paul Atkins PA-C [...] With: Address: When: JEFF JESUS [address] [place] [id number] Business (1) , only if needed With: Address: When: Flex Wang [address] [facility] [address] [place], [place] [id number] Business (1) Within 3 to 5 days DIAGNOSIS: Sprain of left foot Patient Understands: Yes - Patient/family/caregi nela verbalizes understanding of instructions given Comment: Normal [facility] ED Patient Summaryon 021 ED Patient Summary [facility] ? Urgent Care [address] [place], [place] [id number] PATIENT DISCHARGE INSTRUCTIONS Patient Information Name: LEIGH MONTOYA Age: 20 Years Date of : 2000 Reason For Visit: UC - Ankle/Foot/Toe Pain or Swelling; LEFT FOOT PAIN Arrival Time: 04/05/2021 16:12:07 Primary Care Physician: Flex Wang DO Attending Physician: Nirav Nunez Comment: Patient Education With: Address: When: JEFF JESUS [address], Tutor [address] [address] Business (1) , only if needed With: Address: When: Flex aWng [address] [facility] [place] [address] Business (1) Within 3 to [...] ? As (more content not included)... Normal [facility] Recordon 021 Urgent Care Record [facility] ? Urgent Care [address] [facility]. [place], [place] [id number] PATIENT DISCHARGE INSTRUCTIONS Patient Information Name: LEIGH MONTOYA Age: 20 Years Date of : 2000 Reason For Visit: UC - Ankle/Foot/Toe Pain or Swelling; LEFT FOOT PAIN Arrival Time: 04/05/2021 16:12:07 Primary Care Physician: Flex Wang DO Attending Physician: Nirav Nunez Comment: Visit Diagnosis: Diagnoses This Visit Sprain of left foot (S93.602A) UC - Ankle/Foot/Toe Pain or Swelling ([id number]) If you received any narcotics, sedation, or [...] With: Address: When: JEFF JESUS [address] [address] Business (1) , only if needed With: Address: When: Flex Wang [address] [facility] [place] [address] Business (1) Within 3 to 5 days Medication Information: The exam and treatment you received today in the [facility] were for an urgent problem and are not intended as complete care. It is important for you to follow up with a doctor, nurse practitioner, or physician?s preschool assistant for ongoing care. If your symptoms [...] so we can reach you if necessary. [facility] has provided you with a complete list of medications post discharge. Please inform your fuller brush man/provider of your visit and for further instruction [...] are no br (more content not included)... [facility] XR Foot Complete Lefton 03-20 [...] Vishal Fernandez 04/06/21 8:27 am Technologist: NELIDA [facility] Coding Summaryon 08-01-2020 Coding Summary HTMLBase 64 AymguidcPXq5jMy+PGhlY WQ+SZ4EDUOxR43jiILlcD 4JY7yKKK8FUSKEZDHZKY0 INO7luGI3KLwcW4WqjeOp KtgvkAJmAN96MLp5SWD8u AziTUqjuL2jmSIkU0w2Ot QyVF11pB33DJloECIlXoX 3LjZpbjsgbWFy D7edTeCgiLJoZkc+PHRhY mxlIHdpZHRoPScxMDAlJy EdyQdsOW8hRy0lCOVuCHB vbGxhcHNlOiBj u7roJYQpOAytGQ0phYuxB 0CijED8XDNuk3r2Qe21jR I+ZTGaZUA2yHwwSQhod31 0AhNyi0gaMWZ0 jVYtZGcaSJB9K20sl7R8P MMfWKObMBK8gTS7xF1ziJ obwjxkS4UhqDTuUiG0EVM 3sXFuxY7wqBwj rkooeS9wSer+F07NQT9UC FYLAW7CRzw1K5ZfKctxqA I+LQ13BIGhMP10uHWcaFF wi6ktmUr0JgYi IYXaBWF1kHdeVIjzq1OoW FDkT43baVYql2J2NKCqgF pclLHuAbRukES7sR0uGSp ltpgkb9ckvyxg Jslbe5dhom69bZ91V69dJ EjrWRAqKJE2JOViPPEnrY bgez6eoC6uXv0+SCnwm5z iz1kucCo7ApRi WZPonxTabIktWYA2q3LpV a61P4LbaGrxm2EuThh6bm 83dNAct5N9hGJ3TOglLNZ ksG4qDIbkOqN9 GQHbHuYqfD85dSQaBKbqT e5miAgvvKxmCS8yVXGdhg jaGLHbgI5hTOYcdFNfvOp rZW3dRVVzojvn t484VsZlKOW6RYYpcNGzK 3NpdW5wNiHvSYOoHQKpW3 FjiKHrNGdoC504SHceSmU 4LWOvqqMwO7Mb EQDdhGdcUmD2j0Z8Jn4Kt 2FjujicKGY6NJzyEWCkGt Q9FyReUiF5F7QtDmw4KMF etAghVG1tM5Oy XCVqjlkjgipmhVD3IJUmI HZdpP43lQWoJLgrFs1th3 L2r241NPLiVMZrwF33Pr5 udDogMTBwdCBU xB5wbsjfx7oglwnnArFhE GBqTEc5RLj1NKEabKqcGr TjJRK0XiO1MMR3xWUypE9 qkNmquokouB5n Oyc+W47rhQ7gJVF9QRA6j rfwXJFntiGoFO92JT99T5 RyPjwvdGFibGU+PGRpdiB ecVycRG0xFeDw n6fnm6WrTSdvL3WyMDQlR FsfOvm3UQPaBTW9cJF1qU 1qGJOiXIpiz2Z2xYK6T1I vnvLhcd3uu5gx HPJfTWszP41wgTFqo4V6N STxiAX6EIMyiGhyMbLwzD 93Oyc+FOQwwMerp0AkHdi cg6nkc8zwuWq3 WgYgSMVukrLbjDnyLOO6r 9UqRr33U99gSQziUZOeHH RuPUWsWVLdlCrech5oaG9 wIi8+PGNvbCB3 lDP4sY8kRADmZhI6TOwuR 302HlEdkEIsPnynj2muw3 yvsYc2EtLjECJcigCgcMp eFFS3o5KhJp63 X87kBSukWSUtHKHnHWRqC CYifDtzwn5zmG6cPo3+PC 0xn6nbth95gV72yHV+PHR nESB5iZuhDSza ZRHujA4bULcmPdW9WDJgG uKifR85mSWdQPicPo5giZ ymdIfeIA7sWYMvfmith78 7NdWdo3gxUNCk lJDeORubKKN5K39fo1J5G FTzMPMiEQU2sJE3cK7goM lnbjogbGVmdDsgdmVydGl lOGxtJLkxS980 IHRvcDsnPlBhdGllbnQgT rKhIJb2I8YlGhr8LNDkrF jvZT7veXHdWTwfNo0jzUh tcIhgKG7kIKAs zykjo157TeCcj1edSUYcr RYjZUrgEGN5G54wp4Z0EP SoFUBvYDZ9uSN7pH8kjZg nbjogbGVmdDsg saOkkCntTNyoOWluA916A HRvcDsnPkJpcnRoIERhdG B0ZH12LE25xDEud5Z4zGU 2H1NdPWFyqcay ncjqeKN1BNPsTCSmkB28Q g5cnKmfXi8gUXGhZJM8US MyaTLsW0VknI7xIzDqNPA pEGDaI4XtrHDx OTdlX351VUahEtP8HVUos xLtA8EoUOMjySgrPvQ4q8 D9Pc1PW4O6YQ57XP93eOQ ul0U3pCS1S2Ru HXSncijqxnlijOC3RMGfF QMdmR91Ma9vdVieHy1fKK WhEBC8JZEpsESlA7HqvM4 yOiAjMDAwMDAw M4MqxEAgGQxfI787HIjwC eS1PNNlfiGxX9CdYSPmnB hlVhC3u7S6Yn2IMRg1CB6 1RW44rYPbm1R1 mBS2U1WtATMifeuqxbxkg QM2ZUXgCLYrwC26Qh3swW mvCh7rQEMyUNT9VQNrnHX qY6FjmD1vJfPl GFPjSGXbW2XynCHaMJkmN 212FBaxJkJ4RYPkczHnO3 CbGBQpgKdxCzI9s1W8Cu3 PICVjZF57AWB6 mGI8JV64YX90W9AzQqxxb GFibGU+PHRhYmxlIHdpZH RoPScxMDAlJyBzdHlsZT0 zIx9tHBUcODAu eUzlySHfYnLal0zuTFUiD GiiTS3cuVlzM0NczPA4BM Fbl7l6Gc42Z33lN6SmbOB +HSVsbFV1cKG8 aE5xPfOnXeB6PVlxY842N gMxgWUyEckeq1mql1aerV s3QaL9MGNozbDalVhuXGL 4w3EtMr92R34m IHdpZHRoPSIxNSUiIHZhb Aosgn6vwX3kKy4+PGNvbC Q4vCM1iS9nLlAbIzD9VLp aH715YdStcGFr Irqie0bwt8pzzLn4CpGvK UYpddXliZnwFKN8i8RjCl 32E8OqoPaei7MmJxl4el6 8jJEnf9A5rQS2 X3WhBDMyshulwIKtkRmoF U2oPXHsdwwlVCCftW9kMI DqR4j9NnIaJmM6WMeiS9B uzjF6WNDkiHYk QDnzRDL7T86qo6D0VDSmD BJoGTQ4lRU8uW4kcLqwsv ogbGVmdDsgdmVydGljYWw uWTalZ283TUXk qKwxSRWcxO3bQYCegCQsd PdwMG0wZTQtcjrpLzJQYW REWSwgSEFOTkFIIEdSQUN TNM97JI03nREu t7W4qSO0Z6NuDQBiimlus uevcKT7FYDsATUjjF23wZ GeLHjzNh2jg1W6a860YIS aZRYaoZ72Wq3p zEehMDFgpHEVsD0spaqwm 0jvpnldTeKuQXHbAOa7KN d6QXRwbNhuHhGqCOD8YtM 5QAH4dNJxnA5c nOudslkuhL2mPfp+MDMvM DkvMjAwMTwvdGQ+PHRkIH M3jYyhWLvqQGBfoQ7vGYW sS1h6FzCwMrR9 UZmaW7OiANFlcxnsRk77t Y1mNsKlArN5ONitS7Ocfw C0WISyqDRaBQqxFBE9L55 nr3N8RGAdZOMz HPL1rXP6jL1lbGxqszklz GVmdDsgdmVydGljYWwtYW eqD049MLKiqYhxWfOdEBi wAXCpAL30JH37 xDTjf7S8fYE2G1KoRTWbj qwwdtixmEF2QOSeEVBkcU 21uIMhGQejKl3vo3R5c95 2BCOnUNBfpC65 Gq7jaXcdEFWhuXNQjW9nb bmjy1yxxkcrBkYeCNMiCA w8PAj0BCIxkVckTqClRUV 6QlH0PXG5lKDt uI1ywKrylwwxaU7aXsy+R hHNQEjVML23PE75tGDzz8 E7jXO3J7QcYOBwtrdehoj kdIL1ZJJkUCHs iG87tJCtJFkaTn5cr5R7x 448QQXgFZMysP41Sh6mwN sjPFNocBHOxL8guckhi6m vcjogIzAwMDAw IHx6GZy4OQMxuYfbAfPzB NX5NzW1VSZ6sKQcoB7uhH pawrmynW1mCxx+W9C5N1G kPjwvdHI+PC90 XYFySP31vCVmcWGdt3lje Ce1IsDdGPWpIFA6nUtnUV jjz4OjBSDsS74ocDTpy6V 6IGNvbGxhcHNl ThCgsYG4yZ7qSHgogcalb 2patnxmXvxxx2khao64mL 15C93pPJgpNSHbPLJvIAW rRIOuuQeojv5q pH4rCz1+FRBxtLE6yVD1b S2iNlIlHnO7FLocM497Kh RcwOTqDqxvu9ynz2xopXy 9IjIwJSIgdmFs xTqnIGD8l9KpVz46Y62yD HdpZHRoPSIyMCUiIHZhbG mmue2gmN8xSi7+RM3wm5q zgl54iT76iXV+ ELCkPRU5qZkgNHenIEOwo U8jYSbgKkO8BCVrQwQijG 41wRXyAKvpZx2xrYbitRc gFN9zZZEtrlju f673FdCpa7zeDPIzrWIiQ VlhMVI7Q16hm1H1PKGwFP QeFOH7gJR4mT9viXtulfd gbGVmdDsgdmVy fQewSEkuQVakV473FJXfb CsxYtOtySUwN4mybtHZXT 1lOjwvdGQ+JIFvOWI4qCs oXXxdFZCizP4z UKXmJ1j2XpAkSeE5ODunS 1DfprP1PKYcgKLrBRVbxL DNhM9adnfhd2lboyiwMeL uRWRyRWp6KYv7 ILDdrNqdYxDtHHH9FaI9N HK1iZKhwD9heYlieakyaQ 9wOyc+RklOOjwvdGQ+PHR yDTT9hSkmWJqb LMOcgD0hLTLlK0f2NvHiY fK6VJhxF6MhpyK3MIWdrK MjHSPmyFIIcP2pwuail4a vcjogIzAwMDAw MBy3XUw8SFHliDsaUvBeV BM6GcP0CLO0eYAtwF9mrE xhoztczE8lJrr+TVJOOjw vdGQ+PHRkIHN0 rBvlPUqlPJEjyD5bQMPuF 1q7QgHfOdS6DMzhO6Hdoe P0SMSgrYRiCIGvoQFDbD1 jheysm6wccxmn SqMmNFAwLCp5IKf7VMMxa XbgYxKsJAY3JkP3XJJ2fV QcmA9jkMwopgwrmO9kDdv +KFS8GWG6QM62 ON31O3TiAgehsUFpiMP+P HRhYmxlIHdpZHRoPScxMD PbRpDqrZgwFX6fPo7sHOW yLWNvbGxhcHNl OiB (more content not included)... Normal [facility] C Throaton 07-31-2020 C Throat Ordered by Discern. Normal throat regi isolated No pathogens isolated Normal [facility] Comment on above: Performed By: #### [id number] ####[facility] (DEFAULT)[address] [place] [address] ED Clinical Summaryon 2020 ED Clinical Summary [facility] ? Urgent Care [address] [place] [address] Clinical Summary PERSON INFORMATION Name: LEIGH MONTOYA Age: 20 Years Sex: FEMALE : 2000 MRN: Acct#: Visit Reason: UC - Sore Throat; THROAT PAIN Arrival: 07/29/2020 09:44:22 Discharge: 07/29/2020 10:23:00 LOS: 000 00:39 Check In: 07/29/2020 09:44:22 Checkout: 07/29/2020 10:23:00 Address: [address] [place] [address] PCP: Flex Wang DO PROVIDER INFORMATION Provider [...] Negative . Impression and Plan Diagnosis Pharyngitis (VDG85-UY J02.9, Discharge, Medical) Plan Condition: Stable. Disposition: Discharged: Time 07/29/2020 10:17:00 (more content not included)... Normal [facility] ED Note - Provideron 021 ED [...] Negative . Impression and Plan Diagnosis Pharyngitis (BMN26-LN J02.9, Discharge, Medical) Plan Condition: Stable. Disposition: Discharged: Time 07/29/2020 10:17:00, to home. Patient was given the following educational materials: Pharyngitis, Qizj-wa-Ajqf, Pharyngitis, Mbpi-yr-Ppon. Follow up with: Flex Wang Within 2 [...] 07/29/2020 10:20 EST] Patricia Meeks PA-C Normal [facility] ED Patient Summaryon 021 ED Patient Summary [facility] ? Urgent Care [address] [place], [place] [id number] PATIENT DISCHARGE INSTRUCTIONS Patient Information Name: LEIGH MONTOYA Age: 20 Years Date of : 2000 [facility]: [id number] Reason For Visit: UC - Sore Throat; THROAT PAIN Arrival Time: 07/29/2020 09:44:22 Primary Care Physician: Flex Wang DO Attending Physician: Patricia Meeks PA-C Comment: Patient Education With: Address: When: Flex Wang [address] [facility] [place] [phone] Business (1) Within 2 to 4 days [...] Follow these instructions at home: ? Take [id number] and prescription medicines only as told by [...] 10/22/2008 Document Revised: 04/18/2018 Document Reviewed: 06/11/2017 [employer] Patient Education ? 2020 Hello Chair. Medication Information: The exam and treatment you received today in the [facility] Emergency Department were for an urgent problem and are not intended as complete care. It is important for you to follow up with a doctor, nurse practitioner, or physician?s preschool assistant for ongoing care. If your symptoms [...] so we can reach you if necessary. [facility] Emergency Department has provided you with a complete list of medications post discharge. Please inform your fuller brush man/provider of your visit and for further instruction [...] Throat (C11 (more content not included)... Normal [facility] Strep Aon 07-29-2020 Strep procedure control Pass Normal [facility] Comment on above: Performed By: #### [id number] ####[facility] (DEFAULT)[address] [place] [id number] Streptococcus A Negative Normal Negative [facility] Comment on above: Performed By: #### 6 [id number] ####[facility] (DEFAULT)[address] [place] [id number] Ur[facility] 021 Urgent Care Record [facility] ? Urgent Care [address] [place] [id number] PATIENT DISCHARGE INSTRUCTIONS Patient Information Name: LEIGH MONTOYA Age: 20 Years Date of : 2000 Reason For Visit: UC - Sore Throat; THROAT PAIN Arrival Time: 07/29/2020 09:44:22 Primary Care Physician: Flex Wang DO Attending Physician: Patricia Meeks PA-C Comment: Visit Diagnosis: Diagnoses This Visit Pharyngitis (J02.9) UC - Sore Throat ([id number]) If you received any narcotics, sedation, or [...] With: Address: When: Flex Wang [address] [facility] [place] [phone] Business (1) Within 2 to 4 days [...] and treatment you received today in the [facility] were for an urgent problem and are not intended as complete care. It is important for you to follow up with a doctor, nurse practitioner, or physician?s preschool assistant for ongoing care. If your symptoms [...] so we can reach you if necessary. [facility] Urgent Care has provided you with a complete list of medications post discharge. Please inform your fuller brush man/provider of your visit and for further instruction [...] Follow these instructions at home: ? Take yhxb-rky-mgvzocg and prescription medicines only as told by [...] help righ (more content not included)... Normal [facility] Coding Summaryon 06-27-2020 Coding Summary CODING DATE: 06/27/2020 [facility] STATUS: Home PAYOR: Commercial Insurance [...] Nano Padilla Date Saved: 06/27/2020 12:37 pm [facility] ED Clinical Summaryon 2020 ED Clinical Summary [facility] ? Urgent Care [address] [place] [address] Clinical Summary PERSON INFORMATION Name: LEIGH MONTOYA Age: 19 Years Sex: FEMALE : 2000 MRN: Acct#: Visit Reason: UC - Ear Pain; UC - Ear Pain; RIGHT EAR PAIN Arrival: 06/18/2020 15:00:59 Discharge: 06/18/2020 15:27:00 LOS: 000 00:27 Check In: 06/18/2020 15:00:59 Checkout: 06/18/2020 15:27:00 Address: [address] [place], [place] [id number] PCP: Flex Wang DO PROVIDER INFORMATION Provider Role Assigned Unassigned Monica Dunn OVERNIGHT CAREGIVER Nurse 06/18/2020 15:03:15 Alessandro PA, Marv ED PA 06/18/2020 15:03:24 VITALS INFORMATION Vital Sign Triage Latest Temperature Tympanic Temperature Temporal Artery Pulse Rate O2 Sat 98 % 98 % Respiratory Rate Blood Pressure /78 mmHg /78 mmHg MEDICAL INFORMATION Medications Given: Allergy Information: sulfamethoxazole; ibuprofen PHYSICIAN DOCUMENTATION DISCHARGE INFORMATION: Discharge Disposition: Home Discharge Location: Home PATIENT EDUCATION INFORMATION Instructions: Otitis Media, Adult, Pjzn-lj-Zxnz Follow-Up: With: Address: When: Flex Wang [address] [facility] [place] [address] Business (1) Comments: Begin on the amoxicillin-clavulana te antibiotic take every 12 hours for the next 10 days Follow-up with your primary care physician in 3-5 days for reevaluation, sooner if any worsening symptoms DIAGNOSIS: Otitis media, right Patient Understands: Yes - Patient/family/caregi nela verbalizes understanding of instructions given Comment: [facility] ED Patient Summaryon 021 ED Patient Summary [facility] ? Urgent Care [address] [place] [address] PATIENT DISCHARGE INSTRUCTIONS Patient Information Name: LEIGH MONTOYA Age: 19 Years Date of : 2000 [facility]: [id number] Reason For Visit: UC - Ear Pain; UC - Ear Pain; RIGHT EAR PAIN Arrival Time: 06/18/2020 15:00:59 Primary Care Physician: Flex Wang DO Attending Physician: Marv Shannon Comment: Patient Education With: Address: When: Flex Wang [address] [facility] [place] [id number] Business (1) Comments: Begin on the amoxicillin-clavulana [...] Follow these instructions at home: ? Take kxnx-bew-esnbzdm and prescription medicines only as told by [...] 10/22/2008 Document Revised: 04/18/2018 Document Reviewed: 05/27/2017 [employer] Patient Education ? 2020 Hello Chair. Medication Information: The exam and treatment you received today in the [facility] Emergency Department were for an urgent problem and are not intended as complete care. It is important for you to follow up with a doctor, nurse practitioner, or physician?s preschool assistant for ongoing care. If your symptoms [...] so we can reach you if necessary. [facility] Emergency Department has provided you with a complete list of medications post discharge. Please inform your fuller brush man/provider of your visit and for further instruction on these medications. Any specific questions regarding your chronic medications and dosages should be discussed with your primary care physician(s) and/or pharmacist. New Medications [facility], [address] [place] [phone], [phone] amoxicillin-clavulana te (Augmentin 500 mg-125 mg oral [...] media, right (H66.91) UC - Ear Pain ([id number]) UC - Ear Pain ([id number]) If you received any narcotics, sedation, or any other medication that causes drowsiness for the next 24 hours, unless otherwise directed: ? Do not drive a car. ? Do not operate machinery such as power tools, lawn mowers, drills, sewing machines, or stoves ? Avoid alcoholic beverages and drugs for allergies, n (more content not included)... Normal [facility] Urgent Care Note- Provideron 06-18-2020 Urgent [...] Impression and Plan Diagnosis Otitis media, right ([id number] H66.91, Discharge, Medical) Plan Prescriptions: [facility] prescriptions Pharmacy: Augmentin 500 mg-125 mg oral tablet (Prescribe): 1 tab(s), PO, q12hr, for 10 day(s), 20 tab(s), 0 Refill(s). Patient was given the following educational materials: Otitis Media, Adult, Btqv-km-Kfyv. Follow up with: Flex Wang Begin on the amoxicillin-clavulana te antibiotic take every 12 hours for the next 10 days Follow-up with your primary care physician in 3-5 days for reevaluation, sooner if any worsening symptoms. Counseled: Patient, Regarding diagnosis, Regarding diagnostic results, Regarding treatment plan, Regarding prescription, Patient indicated understanding of instructions. Normal [facility] Care Recordon 01-30-2 021 Urgent Care Record [facility] ? Urgent Care [address] [place] [address] PATIENT DISCHARGE INSTRUCTIONS Patient Information Name: LEIGH MONTOYA Age: 19 Years Date of : 2000 Reason For Visit: UC - Ear Pain; UC - Ear Pain; RIGHT EAR PAIN Arrival Time: 06/18/2020 15:00:59 Primary Care Physician: Flex Wang DO Attending Physician: Marv Shannon Comment: Visit Diagnosis: Diagnoses This Visit Otitis media, right (H66.91) UC - Ear Pain ([id number]) UC - Ear Pain ([id number]) If you received any narcotics, sedation, or [...] With: Address: When: Flex Wang [address] [facility] [place] [address] Business (1) Comments: Begin on the amoxicillin-clavulana te antibiotic take every 12 hours for the next 10 days Follow-up with your primary care physician in 3-5 days for reevaluation, sooner if any worsening symptoms Medication Information: The exam and treatment you received today in the [facility] were for an urgent problem and are not intended as complete care. It is important for you to follow up with a doctor, nurse practitioner, or physician?s preschool assistant for ongoing care. If your symptoms [...] so we can reach you if necessary. [facility] has provided you with a complete list of medications post discharge. Please inform your fuller brush man/provider of your visit and for further instruction on these medications. Any specific questions regarding your chronic medications and dosages should be discussed with your primary care physician(s) and/or pharmacist. New Medications [facility], [address] [place], [place] [id number], [phone] amoxicillin-clavulana te (Augmentin 500 mg-125 mg oral [...] Follow these instructions at home: ? Take fzcm-yvz-duwocdo and prescription medicines only as told by [...] (paralyzed). ? You (more content not included)... [facility] Consent Formson 04-28-2020 Consent Forms [id number] [facility]-28-2020 Provider Orders [id number] .[facility] Coding Summaryon 04-25-2020 Coding Summary CODING DATE: 04/25/2020 [facility] STATUS: Home PAYOR: Commercial Insurance [...] Nano Padilla Date Saved: 04/25/2020 02:38 pm [facility] .QC Respiratory Panel 2.1 (B ioFire)on 04-22-2020 Internal Control-Resp Panel 2.1(BioFire) Pass [facility] Comment on above: Order Comment: Order ed by Holley.[[id number]] Performed By: #### 6 [id number], [id number] ####[facility] (DEFAULT)[address] [place] [address] Respiratory Panel 2.1 (BioFi re)on 04-22-2020 Adenovirus -BioFire Not detected Normal Not Detected [facility] Comment on above: Performed By: #### 6 [id number], [id number] ####[facility] (DEFAULT)[address] [place] [address] Bordetella parapertussis -BioFire Not detected Normal Not Detected [facility] Comment on above: Performed By: #### 6 [id number], [id number] ####[facility] (DEFAULT)[address] [place] [address] 31895 Bordetella pertussis -BioFire Not detected Normal Not Detected [facility] Comment on above: Performed By: #### 6 [id number], [id number] ####[facility] (DEFAULT)[address] [place] [address] 18658 Chlamydia pneumoniae -BioFire Not detected Normal Not Detected [facility] Comment on above: Performed By: #### 6 [id number], [id number] ####[facility] (DEFAULT)[address] [place] [address] Coronavirus 229E (Not COVID-19) -BioFire Not detected Normal Not Detected [facility] Comment on above: Performed By: #### 6 [id number], [id number] ####[facility] (DEFAULT)[address] [place] [address] Coronavirus HKU1 (Not COVID-19) -BioFire Not detected Normal Not Detected [facility] Comment on above: Performed By: #### 6 [id number], [id number] ####[facility] (DEFAULT)[address] [place] [address]67 Coronavirus NL63 (Not COVID-19) -BioFire Not detected Normal Not Detected [facility] Comment on above: Performed By: #### 6 [id number], [id number] ####[facility] (DEFAULT)[address] [place] [address] 18447 Coronavirus OC43 (Not COVID-19) -BioFire Not detected Normal Not Detected [facility] Comment on above: Performed By: #### 6 [id number], [id number] ####[facility] (DEFAULT)[address] [place] [address] Employed in healthcare? No Invalid Interpretation Code [facility] Comment on above: Performed By: #### 6 [id number], [id number] ####[facility] (DEFAULT)[address] [place] [address]79 Group care resident? No Invalid Interpretation Code [facility] Comment on above: Performed By: #### 6 [id number], [id number] ####[facility] (DEFAULT)[address] [place] [address]64 Human Metapneumovirus -BioFire Not detected Normal Not Detected [facility] Comment on above: Performed By: #### 6 [id number], [id number] ####[facility] (DEFAULT)[address] [place] [address]18 Human Rhinovirus/Enterovir us -BioFire Not detected Normal Not Detected [facility] Comment on above: Performed By: #### 6 [id number], [id number] ####[facility] (DEFAULT)[address] [place] [address] 13354 In ICU? No Invalid Interpretation Code [facility] Comment on above: Performed By: #### 6 [id number], [id number] ####[facility] (DEFAULT)[address] [place] [address]5465 Influenza A (no subtype) -BioFire Not detected Normal Not Detected [facility] Comment on above: Performed By: #### 6 [id number], [id number] ####[facility] (DEFAULT)[address] [place] [address] 41478 Influenza A -BioFire Not detected Normal Not Detected [facility] Comment on above: Performed By: #### 6 [id number], [id number] ####[facility] (DEFAULT)[address] [place] [address] 16769 Influenza A H1 -BioFire Not detected Normal Not Detected [facility] Comment on above: Performed By: #### 6 [id number], [id number] ####[facility] (DEFAULT)[address] [place] [address] 26927 Influenza A H1-2009 -BioFire Not detected Normal Not Detected [facility] Comment on above: Performed By: #### 6 [id number], [id number] ####[facility] (DEFAULT)[address] [place] [address]164 Influenza A H3 -BioFire Not detected Normal Not Detected [facility] Comment on above: Performed By: #### 6 [id number], [id number] ####[facility] (DEFAULT)[address] [place] [address] Influenza B -BioFire Not detected Normal Not Detected [facility] Comment on above: Performed By: #### 6 [id number], [id number] ####[facility] (DEFAULT)[address] [place] [address] Mycoplasma pneumoniae -BioFire Not detected Normal Not Detected [facility] Comment on above: Performed By: #### 6 [id number], [id number] ####[facility] (DEFAULT)[address] [place] [address] Parainfluenza Virus 1 -BioFire Not detected Normal Not Detected [facility] Comment on above: Performed By: #### 6 [id number], [id number] ####[facility] (DEFAULT)[address] [place] [address] Parainfluenza Virus 2 -BioFire Not detected Normal Not Detected [facility] Comment on above: Performed By: #### 6 [id number], [id number] ####[facility] (DEFAULT)[address] [place] [address]25 Parainfluenza Virus 3 -BioFire Not detected Normal Not Detected [facility] Comment on above: Performed By: #### 6 [id number], [id number] ####[facility] (DEFAULT)[address] [place] [address] Parainfluenza Virus 4 -BioFire Not detected Normal Not Detected [facility] Comment on above: Performed By: #### 6 [id number], [id number] ####[facility] (DEFAULT)[address] [place] [address] status? Not Invalid Interpretation Code [facility] Comment on above: Performed By: #### 6 [id number], [id number] ####[facility] (DEFAULT)[address] [place] [address] Respiratory Syncytial Virus -BioFire Not detected Normal Not Detected [facility] Comment on above: Performed By: #### 6 [id number], [id number] ####[facility] (DEFAULT)[address] [place] [address] SARS-CoV-2 (COVID-19) RNA OZZIE+probe Ql (Unsp spec) Not detected Normal Not Detected [facility] Comment on above: Performed By: #### 6 [id number], [id number] ####[facility] (DEFAULT)[address] [place] [address] SARS-CoV-2 (COVID-19) RNA OZZIE+probe Ql (Unsp spec) No Invalid Interpretation Code [facility] Comment on above: Performed By: #### 6 [id number], [id number] ####[facility] (DEFAULT)[address] [place] [address] Symptomatic as defined by CDC? No Invalid Interpretation Code [facility] Comment on above: Performed By: #### 6 [id number], [id number] ####[facility] (DEFAULT)[address] [place] [address] Vital Signs Date Time Vital Sign Value Performing Clinician Facility 12-06-2021 16:30-0400 Body height 160.02 cm Ezequiel Melo Other [facility] Other 12-06-2021 16:30-0400 Body mass index (BMI) [Ratio] 41.62 kg/m2 Ezequiel Melo Other [facility] Other 12-06-2021 16:30-0400 Body weight 106.6 kg Ezequiel Melo Other [facility] Other 10-11-2021 14:45-0400 Body height 160.02 cm Ezequiel Dijessie Other [facility] Other 10-11-2021 14:45-0400 Body mass index (BMI) [Ratio] 41.98 kg/m2 Ezequiel Adamsjessie Other [facility] Other 10-11-2021 14:45-0400 Body weight 107.5 kg Ezequiel Melo Other [facility] Other 10-11-2021 14:45-0400 Diastolic blood pressure 79 mm[Hg] Ezequiel Melo Other [facility] Other 10-11-2021 14:45-0400 Systolic blood pressure 128 mm[Hg] Ezequiel Melo Other [facility] Other Encounters Encounter Date Encounter Type Care [...] Start: 08-29-2022 End: 08-29-[address] [facility] Facility:H1 Start: 01-12-2022 End: 01-16-[address] [facility] Facility:H1 Start: 12-06-2021 End: 12-06-2021 ambulatory Ezequiel Melo Other [facility] Other Start: 12-06-2021 Patient encounter procedure Ezequiel Melo [facility] Start: 10-11-2021 End: 10-11-2021 ambulatory Ezequiel Melo Other [facility] Other Start: 10-11-2021 [facility] visit new patient Ezequiel Melo [facility] Payers Date Payer Category Payer Unknown [id number] 2000 Unknown [id number] 2.16.84 [id number] 2000 Unknown [id number] 2.16.84 [id number] 2000 Unknown [id number] 2.16.84 [id number] 2000 Unknown [id number] 2.16.84 [id number] 2000 Unknown [id number] 2.16.84 0.1.831603.3.579.2.9 2000 Unknown [id number] 2.16.84 0.1.951850.3.579.2.9 2000 Unknown [id number] 2.16.84 0.1.566149.3.579.2.9 2000 Unknown [id number] 2.16.84 0.1.810399.3.579.2.1259 2000 Unknown [id number] 2.16.84 0.1.011031.3.579.2.9 2000 Unknown [id number] 2.16.84 0.1.958883.3.579.2.1259 1959 Unknown [id number] Medicaid [id number] . [id number] Social History Date Type Detail Facility Sex Assigned At [facility] Other Evaluation note 12-06-2021 Note Date & Type Note Facility 12-06-2021 Evaluation note Encounter Date Diagnosis Assessment Notes Nov, Dyspepsia (ICD-10 - K30) patient states does have some bloating in the left center she does have pain noted. patient is advised that we can start levsin and refer to copy and print associate for food testing. [facility] Other Evaluation note 10-11-2021 Note Date & Type Note Facility 10-11-2021 Evaluation note Encounter Date Diagnosis Assessment Notes September, Bloating (ICD-10 - R14.0) September, Dyspepsia (ICD-10 - K30) September, Abdominal pain (ICD-10 - R10.9) [facility] Other Clinical Note 04-05-2021 Note Date & [...] This may take several hours. ? Take xede-tbu-kmhtwbh and prescription medicines only as told by your health care provider. ? When you can walk without pain, wear supportive shoes that have stiff soles. Do not wear flip-flops, and do not walk barefoot. ? Keep all follow-up visits as told by your health care provider. This is important. Contact a health care provide (more content not included)... [facility] Clinical Note 07-29-2020 Note Date & Type Note Facility 07-29-2020 Note Patient Education Ma terials Follows:Disease Pharyngitis Pharyngitis is a sore throat (pharynx). This is when there is redness, pain, and swelling in your throat. Most of the time, this condition gets better on its own. In some cases, you may need medicine. Follow these instructions at home: ? Take qshb-yoa-sipnoof and prescription medicines only as told by [...] Reviewed: 06/11/2017 Else[employer] Patient Education ? 2019 Hello Chair. [facility] Clinical Note 06-18-2020 Note Date & Type Note Facility 06-18-2020 Note Patient Education Ma terials Follows: Otitis Media, Adult Otitis media means that the middle ear is red and swollen (inflamed) and full of fluid. The condition usually goes away on its own. Follow these instructions at home: ? Take ffsr-ckr-fyvuuin and prescription medicines only as told by [...] 10/22/2008 Document Revised: 04/18/2018 Document Reviewed: 05/27/2017 [employer] Patient Education ? 2019 Hello Chair. [facility] Clinical Note 04-22-2020 Note Date & Type Note Facility 04-22-2020 Note Nasal swab performed without complication. Patient tolerated well. Education given. Patient verbalized understanding. [Electronically Signed on: 04/22/2020 15:05 EST] Miri Nuñez RN [Verified on: 04/22/2020 15:05 EST] Miri Nuñez RN [facility] History general Narrative - Reported Note Date & Type Note Facility History general Narrative - Reported Type Medical History PCOS Medical History Endometriosis Surgical History laparoscopy - endometriosis [facility] Other Reason for referral (narrative) Note Date [...] is able to get in before this. [facility] Other Reason for visit Narrative Note Date & Type Note Facility Reason for visit Narrative PATIENT HERE AT THE REQUEST OF DR. VERGARA FOR EVALUATION & TREATMENT OF BLOATING [facility] Other Reason for visit Narrative Note Date [...] of the side effects that were listed. [facility] Other Summary Purpose Family History No Family History Records FoundNo Family History Records FoundNo Family History Records FoundNo Family History Records Found Advance Directives No Advanced Directives Records FoundNo Advanced Directives Records FoundNo Advanced Directives Records FoundNo Advanced Directives Records Found Additional Source Comments INFORMATION SOURCE (unrecogn ized section and content) DATE CREATED AUTHOR 04/21/2021 [facility] DATE CREATED AUTHOR AUTHOR'S ORGANIZ ATION 11/08/2021 [facility] DATE CREATED AUTHOR AUTHOR'S ORGANIZ ATION 09/06/2022 [facility] DATE CREATED AUTHOR AUTHOR'S ORGANIZ ATION 01/31/2024 [facility] EPIC FOR RECORDS PERTAINING TO [...] BE BASED ON THE PRIMARY CLINICAL RECORDS. [facility]. provides no warranty or guarantee of the accuracy or completeness of information in this document.
== END 2024-02-12 20:57 | disposition home or self-care (01) ==
LOC: LAB 20:56
PROVIDERS: Visit Provider Obstetrics & Gynecology
DX: Z34.93 Encounter for supervision of normal pregnancy, unspecified, third trimester (principal)
CPT/HCPCS: 87150

== ENCOUNTER 2024-02-13 07:01 | Outpatient (OUT) | payer OTHER, SELFPAY ==
--- OUTSIDE RECORDS SUMMARY | 2024-02-13 07:05 | XMS_ITS | CCD ---
Author Organization [facility] Care Team Providers Care Trench Trimmer Fine Name Role Phone Ezequiel Melo Unavailable [facility], DR MIRANDA Primary Care [...] Reaction(s) Facility (2 sources) Sulfacetamide Drug Allergy [facility] Personeta Other (1 source) Sulfonamides (Antibiotic) Drug allergy (disorder) [facility] Repository Medications Current Medications Medication [...] 21 to 29on 09-06-2022 . . Normal [facility] Comment on above: Performed By: #### 4 [id number] #### [facility] [address] [place] [address] Dr. Dat Wesley Age Gdln ACOG Testing 21- Normal [facility] Comment on above: Performed By: #### 4 [id number] #### [facility] [address] [place] [address] Dr. Dat Wesley DIAGNOSIS: Comment Normal [facility] Comment on above: Result Comment: NEGA TIVE FOR INTRAEPITHELIAL LESION OR MALIGNANCY. Performed By: #### 4 [id number] #### [facility] [address] [place] [address] Dr. Dat Wesley Methodology: Comment Normal [facility] Comment on above: Result Comment: This liquid based ThinPrep(R) pap test was screened with the use of an image guided system. Performed By: #### 4 [id number] #### [facility] [address] [place] [address] Dr. Dat Wesley Note: Comment Normal [facility] Comment on above: Result Comment: The Pap smear is a screening test designed to aid in the detection of premalignant and malignant conditions of the uterine cervix. It is not a diagnostic procedure and should not be used as the sole means of detecting cervical cancer. Both false-positive and false-negative reports do occur. . Performed By: #### 4 [id number] #### [facility] [address] [place] [address] Dr. Dat Wesley Performed by: Comment Normal [facility] Comment on above: Result Comment: Singh Sanders Fire Alarm Inspector (ASCP) Performed By: #### 4 [id number] #### [facility] [address] [place] [address] Dr. Dat Wesley Reflex Criteria: Comment Normal [facility] Comment on above: Result Comment: The HPV DNA reflex criteria were not met with this specimen result therefore, no HPV testing was performed. . Performed By: #### 4 [id number] #### [facility] [address] [place] [address] Dr. Dat Wesley Specimen adequacy: Comment Normal [facility] Comment on above: Result Comment: Sati sfactory for evaluation. Endocervical and/or squamous metaplastic cells (endocervical component) are present. Performed By: #### 4 [id number] #### [facility] [address] [place] [address] Dr. Dat Wesley HCG,Urineon 11-03-2021 Beta HCG ( test) Ql (U) Negative Normal [facility] Comment on above: Result Comment: PERF ORMED BY: [address] [place] [id number] PATHOLOGIST RN CHARGE SULTANA PETE M.D. Performed By: #### U HCG #### [place] [id number] [facility] 11-03-2021 L - -------- Specimen: [id number] Received: 11/03/21 Status: AYDIN Johnson Num: [id number] Spec Type: Surgical Subm Dr: Ezequiel Melo MD Tissues: A Small Intestine - Biopsy/Polyp (SMALL BOWEL) Procedures: HE Stain/2, Gross/Micro L4 -------- Patient Age/Sex Location Account Attending Physician -------- Leigh Singh / [id number] Ezequiel Melo MD -------- SPEC NUM: [id number] RECD: 11/03/21 STATUS: AYDIN TRANG NUM: [id number] PAPI: 11/03/[address] [facility] [address]: Ezequiel Mleo MD ENTERED: 11/03/[address] [facility] [address]: SPEC TYPE: Surgical DEPT: [...] at [facility], [place], [place] -------- Specimen: Received: 11/03/21 Status: AYDIN Johnson Num: [id number] Spec Type: Surgical Subm Dr: Ezequiel Melo MD Tissues: A Small Intestine - Biopsy/Polyp (SMALL BOWEL) Procedures: HE Stain/2, Gross/Micro L4 -------- Patient: Leigh Singh [id number] (Continued) -------- Specimen: [id number] Received: 11/03/21 (Continued) Signed (signature on file) Gabe Ellis MD 11/06/21 1703 -------- Specimen: Received: 11/03/21 Status: RAFAELChino Johnson Num: [id number] Spec Type: Surgical Subm Dr: Ezequiel Meol MD Tissues: A Small Intestine - Biopsy/Polyp (SMALL BOWEL) Procedures: HE Stain/2, Gross/Micro L4 -------- Patient: JennyrodriguezLeigh villatoro [id number] (Continued) -------- Specimen: Received: 11/03/21 (Continued) CPT Codes 52868 -------- -------- Specimen: Received: 11/03/21 Status: AYDIN Johnson Num: [id number] Spec Type: Surgical Subm Dr: Ezequiel Melo MD Tissues: A Small Intestine - Biopsy/Polyp (SMALL BOWEL) Procedures: HE Stain/2, Gross/Micro L4 -------- Patient: JuanJaclyn villatorolauren Craig [id number] (Continued) -------- Signed (signature on file) Gabe Ellis MD 11/06/21 1703 Normal [facility] SARS-CoV-2 (COVID-19) RNA OZZIE+probe Ql (Unsp spec) Negative Normal Negative [facility] Comment on above: Order Comment: Healt hcare Worker?: N Result Comment: Testing for SARS-CoV-2 by RT-PCR This test was developed and its performance characteristics determined by [employer]) and validated at the [facility]. This test has not been FDA [...] is terminated or revoked sooner. PERFORMED BY: [place] [address] PATHOLOGIST RN CHARGE SULTANA PETE M.D. Performed By: #### C OVID 19 [facility] #### [address] Coding Summaryon 04-19-2021 Coding Summary HTMLBase 64 DyjontqcNMw3xZw+PGhlY WQ+BF9DHIDlP94bdYFtbI 7BL1yGMK7HANXUVBJNSV1 VGU7tpGM4EShdD0HeedEw YdoazCEtMJ58TEu9KPZ6g HjeLRxjjE5atWErN9r3Pc WnWA30sS71DZtaGECzXlH 3LjZpbjsgbWFy I4ijPeIovJXuIan+PHRhY mxlIHdpZHRoPScxMDAlJy JysOreKS3bWg8sIOHlFCR vbGxhcHNlOiBj j5mbZWWbLUvwTC4utVcmD 2EsjSH6UZGkf3w2Jp27wL I+SPCdCDI2aHsuUAzii28 7KeJmi6byUZZ1 dZWwLQviDRE1H40rk5U2N GEnLQVfAFQ5nPP7xC9fjG gqodgzR2DboIIlByR8YFX 3dSNqgB2euRuj lxnmuB5bBfc+P50IER2VI SGDFY5XKpg3J4TyAehagO I+UC08HULpKQ84wGCfhVC mk7iueOj5RfKj FZGiEXR0iWadXFlfb6HdC SEfL39kcQCpz7F2DCEhcW kjtMUuQyNyhED9xM1lSOu zmstio0pajuoa Wzigq7rkvv22yJ39E42wZ WvoSWIcPJF6UZMvUJUnfY ixpy4zbQ2pHx9+YZyyn3b fp6ribBl4HjTg KOAkqvMdwGsiGJO5p2LeF q30Z9JsnNcbn8TuJvt6tz 73eFDzd7X3zRJ9DZwjRVL dqI0zYLicBsI9 XAEfTwZnuR06eXMzKWwnD h5goCkzdGgjUD0sPTVygn neJBGjmS6lLJYkmUAzoPf wGX4pYUBjfwgu h803JhLlPMI3CPRdsZRvW 5QtzZ1dYiVfFVLxXWXtP4 VquZBtRVioG292RGdrGyI 7CQDnndClK1Du EJFsyCpcXfX4l5G4Lk6Iu 9OjclkkYUC5FXqyREUvKl BaHhClRnG0F7LeMbg0TEF zrAefIX5cW8Qh UVEobnsevvatuKW3CISsV LKntK42jFEgBQjmKm5ci7 C6y353ZWWiDFTpxC23Kc8 udDogMTBwdCBU pF4kubbyg8gdlelvXhCnQ AZiZAn5JIz2UTYphLfnMk TzAMH2SpN8ILA9hFYyvI0 coClgfqjrsP4q Oyc+P11moJ7nPXQ9ISC9u iwnJNZsipKwZG60JY09N5 RyPjwvdGFibGU+PGRpdiB dcTuuNM3qRpQp b2ivl1JhCJgpY5ShSCJnS QkxJxl8CZWpDKG7jTV6cL 5kLLTsROpsp1S0fUG6Q4A mpyIzes3lv9xq SSLhQRyqO51cmZGcz0C8X XVgzGM1RBMjeBaoIbKbeJ 93Oyc+QVJrgLcvd5VjXah bh4aku6pzuSl3 JiOwNURnlmDkiSfzDQJ7d 5SxZu35P67cGCyvFSJqKR KsDKVvCCOptNydkw5hhJ5 wIi8+PGNvbCB3 dYD6vT1cZNVrTwZ4GGvrC 697AqQbbRQaSzqvh0itg0 hmaXb3CmYqDAAszmNppEh sWRN7y7EgDt19 G50uIDxaONWsPOQyJJHhS ASqeSdcbc0xnU3bAz2+PC 4nj6dpzd69kQ06tTS+PHR dTNT2zDfwNIfh ZUPenJ2eIGpdEpP0TDKaE aWqkF42rZNwLTwfWw7olZ guoVzkWO8wFRGkzslxs05 7BjFyh6tuFUBf cJNmPAqwNHB9D16se8I6F GIxXMDiZDL5gQE4cU8agB lnbjogbGVmdDsgdmVydGl zLItfJVifV145 IHRvcDsnPlBhdGllbnQgT ySjMYk3B8EySxl0ETCckV wyZB4rhAKjEYomNj0ekWy hzXayYU7wFMGa nbhoh641ChSzo7oaCZAyw RDzFVhcFME2V41bb9R1RW QfRXRsCIF2mMS0rF2tsUq nbjogbGVmdDsg zhCxdUpkXAajFGlsX070P HRvcDsnPkJpcnRoIERhdG J6CR52DR66qWTva9R6mPI 2N3LoJFCknosm vksisPX8NUOjRSMefN73O b4epQyjLv2gQDHtWQX0WN UoiITuE2HqmO7rRwDtGZK dEEZiL4EdvPEb PUfvE793EVwxOtG4JUKoy jAzJ6DfVFUhmWdhDtD4u3 F1Ck4SU8Z2ON38YR35eHX qc0C3bOU4O1Ti MEAwqizgdpwbkBR8AMYhP RMcoL29Ar2myAzzBk1tLW XuHAY9THQyiUVgI0GrbY0 yOiAjMDAwMDAw D3VymGKkNPoaY709HYdzA mQ4NVNisjNlJ4SiDLXyrD bpYkF1s0Y1Lp1AYCc5ES8 4DW19rWCcm3Z4 iRV3E4LqUMSuivcippaqd XA7RHIbQQLekO15Rj8rfC znSb7zLRCsNJK5FUUcwMK tL6OzjJ6hKkNs DMVqHAIiR2BkyZUxFHmvW 947MBpjVpE7XBAndsGlS8 PcGENqeWzrTkX5l0S5Ir9 ZIIXkUD82QVB9 hXO5QH59NC83Y0KsJnfyg GFibGU+PHRhYmxlIHdpZH RoPScxMDAlJyBzdHlsZT0 wXt1eIRHnXMTo jIonlEBjQlElw4isHOJbR PodLF3weWidH3VimZE8DZ Qrq1v9Yi25I60iG3HsgXT +QMCvpEK2yCT1 fO3gEfNuXlP2THozT683G pFtuMXvKvbjg3hwz7ciuF e9FxE3IBGlnjOguEuxFOC 3m7RwOl39A83v IHdpZHRoPSIxNSUiIHZhb Ycnph8fnK2hUb3+PGNvbC B7uNP9wE3rQxBuZmD0WOv kQ927KsDrqQUs Oqjkp1kvo3xxoTg4SoKjR DEvuyYxdIzyPTG0u1QfKr 94P3KovVzut3ScXob5nm8 0lVVal8T9vHH1 D3KfFNEkfnyptZOkxYukG D0fNTUqjeiaVYEvgI4sDI DmZ7p5VpTsBmU3YFsqR3L ckxU6MGFhsUSv CLopMWQ3Q14mo5U2FRMpB FXsJIM2gIU2rI7tgVcmgb ogbGVmdDsgdmVydGljYWw xJCkuP310FYKn tOteNCJviC1zSEJtrOWuz NtuFK9qPEBagshxEkUTTH REWSwgSEFOTkFIIEdSQUN TOR10MU79pEMf t0W2zDO2T6OyXMVjeiguw prqcYE8YGXxGPRdkP39eO LlXQhaWd7jp1W9x639VCY xDPPuyN91Xe7k mUkhZTUfhMMShL5gbyplj 6gnpwwnCkBcTGRxYKs8KJ e9ZUZagWxkJvUiKAK0VkZ 4JKZ8wMOhcO7u lQvonylsvM1xIxk+MDMvM DkvMjAwMTwvdGQ+PHRkIH Y6wDeqAMcmSGSdaE1rTYM gH0n0AxUfTkQ3 QSdgZ8VjBBFpukixOl73t F9uJeJiDmP8WBkjD2Zmmh I6NZVukQCqWWceKTZ6G11 un4P1XSNaOPXc HAP6qKE1xW7rnBjqqsyci GVmdDsgdmVydGljYWwtYW kfF159VYXsfDpqUdPfWNc oQRFbTP43QZ67 hHOgs1N7aQX7Y3QkQKNyw mcwfpwoqTQ7YUNbOKXwpE 32tETcWRneMa7ch5J4r04 6WTObRPPinT83 Nb6lmHmlTIBqjIGEeB6yt bdtz7gkmqzhPjOxSILcTK o3WCj0WAUdjHquTqMhIGJ 0NqP0IKW1yGZa cV5doGkcgqwwuY8lUol+R vQAJGyOUD57YS73wGQnc2 U6rTH3I4XcEFFjxqdbcfp efZN2GDWuYBZr uS82iTHtNLiwKl7pk6K8s 187NATuQGPkkN00Mz2pnQ bqGHAmjHJIfE3uwqzap8o vcjogIzAwMDAw SGq4HCi2REHsvKygJwAxW TT0CuR1GYG4sEIshG5cbS qnhpfwmA7oUje+O9R5N5P kPjwvdHI+PC90 SUZtQD53sAIofOSsk3iqz Vc7MxJeXGIqWKM0hIjtWI kov3RnYALhN76lyMKzr4S 6IGNvbGxhcHNl JjQzoBK2uN2zXHufxlfml 3ybnpzeIxqkv7wodj51tE 90L01dZGriPXOhDVVwLZQ zFDTnvWqons0h dJ9gVb5+QNXpuDM1hNU7h W4cLoLnBmO2FWlfZ773Wq TbbNEmEsbgy3thz5jjoMb 9IjIwJSIgdmFs kEckLMW4m4PeXz81O72mO HdpZHRoPSIyMCUiIHZhbG tyba8bsU8vGy7+ZQ4xg9a iol85zQ94tDK+ BDVoLAH8mOgoPPqxMGBjf E1vMOnlDcM0YEVyUaNpuP 86bRVsTVokNm1aoYxvyJm sFP2yYOZpfuxr p536VaRbv4kvKZCstLQqV MzyGWH2G74or7M5ALLbUW QeVPD6nVW0rA5ytLsdjmd gbGVmdDsgdmVy dIaaKIzvRXxbZ841OCBfb KchSrZzmEOfY8shpsHXKS 1lOjwvdGQ+BMMcTRL7fTk fECriIJCslY8l KWAoI1p6OtGlCnD0EUnfG 4RnshF4VLYtiGMzOWXevG XGaJ4wpcujt5cjvmkxSkK bQAOwOCk1YQh7 AKKucAvqMkTiZNY3OlZ3G IC7uVEkkR6twWwhroxzgG 9wOyc+RklOOjwvdGQ+PHR vYYY2rJdhGLsi HPOurO1aOQWsE2g3TbMkT vD4QKgkU1EgkqU6OJJujM TbVCGctHTIvA8ykidew5j vcjogIzAwMDAw CKz1UAg5LWSvuPszAxWeI JO8CkM6WGV4lJZlnE9vmG nwoppcbM0cMyj+TVJOOjw vdGQ+PHRkIHN0 gDtvHTbtMNTgyM8fBOSfL 8q0LhVlMxI4JCthI4Jivb D6GAJmiPTpWZVknJDDkO2 ppghlr7cwhseo CmFbBNQkAUu3ZRz7FYPcn CguKdFpNGV4OcV2NUA6qN FsbI7dpWkprwsktN8wTul +RCV3QLM6QW41 QG05Q2CiYratuQSbfPL+P HRhYmxlIHdpZHRoPScxMD ZiLpEliInvJX3gQc6aGKI yLWNvbGxhcHNl OiB (more content not included)... Normal [facility] Note- Provideron 04-06-2021 [...] and Plan Diagnosis Sprain of left foot (PEZ34-JS S93.602A, Discharge, Medical) Plan Condition: Stable. Disposition: [...] she can arrange follow-up as needed. Normal [facility] ED Clinical Summaryon 2020 ED Clinical Summary [facility] ? Urgent Care [address] [place] [address] Clinical Summary PERSON INFORMATION Name: LEIGH MONTOYA Age: 20 Years Sex: FEMALE : 2000 MRN: Acct#: Visit Reason: UC - Ankle/Foot/Toe Pain or Swelling; LEFT FOOT PAIN Arrival: 04/05/2021 16:12:07 Discharge: 04/05/2021 17:50:00 LOS: 000 01:38 Check In: 04/05/2021 16:12:07 Checkout: 04/05/2021 17:50:00 Address: [facility] [place] [id number] PCP: Flex Wang DO PROVIDER INFORMATION Provider Role Assigned Unassigned Monica Dunn MANAGEMENT COORDINATOR Nurse 04/05/2021 16:14:32 Paul Atkins PA-C ED [...] With: Address: When: JEFF JESUS [address] [place] [id number] Business (1) , only if needed With: Address: When: Flex Wang [address] [facility] [address] [place], [place] [id number] Business (1) Within 3 to 5 days DIAGNOSIS: Sprain of left foot Patient Understands: Yes - Patient/family/caregi nela verbalizes understanding of instructions given Comment: Normal [facility] ED Patient Summaryon 021 ED Patient Summary [facility] ? Urgent Care [address] [place], [place] [id number] PATIENT DISCHARGE INSTRUCTIONS Patient Information Name: LEIGH MONTOYA Age: 20 Years Date of : 2000 Reason For Visit: UC - Ankle/Foot/Toe Pain or Swelling; LEFT FOOT PAIN Arrival Time: 04/05/2021 16:12:07 Primary Care Physician: Flex Wang DO Attending Physician: Nirav Nunez Comment: Patient Education With: Address: When: JEFF JESUS [address] [place], [place] [address] [address] Business (1) , only if needed With: Address: When: Flex Wang [address] [facility] [address] Business (1) Within 3 to [...] ? As (more content not included)... Normal [facility] Recordon 021 Urgent Care Record [facility] ? Urgent Care [address] [facility] [place], [place] [id number] PATIENT DISCHARGE INSTRUCTIONS Patient Information Name: LEIGH MONTOYA Age: 20 Years Date of : 2000 Reason For Visit: UC - Ankle/Foot/Toe Pain or Swelling; LEFT FOOT PAIN Arrival Time: 04/05/2021 16:12:07 Primary Care Physician: Flex Wang DO Attending Physician: Nirav Nunez Comment: Visit Diagnosis: Diagnoses This Visit Sprain of left foot (S93.602A) UC - Ankle/Foot/Toe Pain or Swelling ([id number]) If you received any narcotics, sedation, or [...] With: Address: When: JEFF JESUS [address] [address] Business (1) , only if needed With: Address: When: Flex Wang [address] [facility], [place] [address] Business (1) Within 3 to 5 days Medication Information: The exam and treatment you received today in the [facility] were for an urgent problem and are not intended as complete care. It is important for you to follow up with a doctor, nurse practitioner, or physician?s blood and plasma laboratory assistant for ongoing care. If your symptoms [...] so we can reach you if necessary. [facility] has provided you with a complete list of medications post discharge. Please inform your electrical assistant/provider of your visit and for further [...] are no br (more content not included)... [facility] XR Foot Complete Lefton 03-20 XR [...] Vishal Fernandez 04/06/21 8:27 am Technologist: NELIDA [facility] Coding Summaryon 08-01-2020 Coding Summary HTMLBase 64 ZfqfenitMOo5lAz+PGhlY WQ+OQ3DJYToL21bqUVpiQ 2AE5wUEN3HCDLQCBGICE9 DDV2xfQL9KNzcT3XrmtAe LgmozHIyNW41CTn9AWI7j MkpOKjkzA5ojUXoX5m4Ie QgXB41bF43NTwsJCZgMsH 3LjZpbjsgbWFy U6fnMtRzfJSbIwe+PHRhY mxlIHdpZHRoPScxMDAlJy WhpIkaBZ2hEn6xXLAyUGI vbGxhcHNlOiBj n1ihPVJeUQriZR7anRquV 2OxpQO3UWVtv1o5Fr06kC I+YBGdVCN8dNgkYHrpr65 5UdXtt2ntPQX6 yJUxKNcnNJY8R46fx9H2R FUiHPVsGCL9gWG0rR5irZ ycsetuD0HhzULlMnS6NOZ 5hARaaD1kfNvy lyahiY9iYop+O46AUI3QZ LRPQW3AJcf9W5ZnIgtzwY I+SI63XLQnBM82lAHfaJH xe4brkXw0ZkSn BVJxYIA1hYrxNZlbr8VmC FXkP20rlBBwy5C8MZDvdB zyvQVfReHqfAR8yB5yUEy lerfad9zmqspj Jttuy2iakt06sP56D85rS TjfEJKaQQL9ERSnKTHlsP uqcv9szK2gLw8+JYpsl8y px8rcfOx5SfYh MYAjhfYjkHzkTRZ7l5RfG x33N5UskWqfx1TnHzb2zl 50mXCbc5L1nKB5GIrpBZL dmI6wIBqcLcT0 WJHoUjNgqL81cRCkHGgvI y9ayYfuxYunTO6yZBIbsf oyZOFhaO3hLDJvkLIjtGj sZE1bOGOzgnwl t629WeOjAJL1SCVsdMXzQ 3HzdB4sXeDxCQHoYPYcF1 WfsVLsGLxjV681VQoxLiB 8NYDmjcBlQ4Zt EOPwdRzlHdF5r5I4Ah8Dt 5LvhillYHV0FLgbGEShZn T1VkRyGaF3C1JnXwk0WOD swVplSE2mZ8Wj JFYtgjdvhtkemTJ7YNZeC DQguL16uUEkKJaiRj6xf9 D1q272APElGBGrsS30Ot0 udDogMTBwdCBU wO7keniob6rlwzgyPdHzT KEbVFe6WLt8TIWfmVweKd EtVAA2MxE4KWA1lXBnlI3 rmBarhurhgM5i Oyc+P48pzD7hYMQ1GNO6r qpmIZDknoSrTQ48WS52F2 RyPjwvdGFibGU+PGRpdiB ftCnqZH9kMiVo n9bay5VdDTdaL6FtJTAsC OgkUfd8FCFhTKC8zNI9cI 9bCOUbNTjwp3T5jOI1Y3T cieHhpf0qo1sa FNPiFKczE40dqDRqv1K2A AUlbCR8LMWztWfbNsVypX 93Oyc+WJWynRomn7LhSau lw5fnv6aveSn7 QqQyORIfhpLesZxeVAQ1j 3BhPk73Q76kSCtoUKOcGI EtHMKdVOIcxWtbal7zuN8 wIi8+PGNvbCB3 eWQ9nX5gKGXnNdI5QIqjV 467DcOiiFPwQkykj2uoc7 zsiCt7EqZnAVYnrwResVm vDVD7u2UdPb05 J55jBLvtNIMgLQUkKVMeL ZFluFeqlo3vfE1eNa4+PC 8wv4tewe34iK50oRQ+PHR zJCV8tCkuFGak WLVfsF6vWVqhJxD1BQJpP hPexQ53bRYuJJvzJd0haS chvVzvKI2aZPKhtiqps27 5LfGwq3zrEJIn uDWyPYkkRSJ7Q71bk9J5L WSuKNDtGIL4xZH2xO8mcG lnbjogbGVmdDsgdmVydGl oXFelBTzlZ873 IHRvcDsnPlBhdGllbnQgT rPzGUq1D6BtEvv0DTTsfI hvZJ1utPJbYWpyEq4fcEa xzLguSQ8qLPZk xahan959AxQnn4gzGDIlx HVsOPbwZMU4V03wi9E6SK JlVZSbQTV0xIA6bQ5rpVe nbjogbGVmdDsg anOhhArfEDlbCTlmZ296P HRvcDsnPkJpcnRoIERhdG J1AI07VE99nMGwb1C0mJQ 3Q5TxEIVlazkx kvhutRQ0VGAvTETlrI42J m6vzXylLl9nAZSyNGD2GF BiiZNcZ7HudA0hCqCbGEZ lNCHlA2TxxVYr EGeyB932ZGdyGbH0BJNvp zNrK5OwCMScaSsrRyG2e5 C7Eh7QG6B3CJ89JU80vXI td4Y1zXO2F2Qw DGPnqzcvyjpiaBS2NRJxP JKjnC07Gm1fkItbTg4rZO RjRRE4VRMiiHKqO4RhuC5 yOiAjMDAwMDAw Y5VwtGOcDLryN727XUzzF zB3CCObhnYfJ5RzBUCwzF tmHnQ9t6C3We3NIZj2TJ2 5HN01aOMxq4F4 pMT9N9GzJWDuegcnhikor KP4WOYwMHEhxU81Fa4nwE heFj0qKDJsPPC0KYEviUD hD0PxfX4fNaRx WUBhRLSdW4WiyUWwDQzoM 694LDgbVmY2MOFkisQaE2 LuBNWouWowNlX2h9X1Gh5 AGKIaYI79DZB9 xEB6EC56EZ37X8DsNuftz GFibGU+PHRhYmxlIHdpZH RoPScxMDAlJyBzdHlsZT0 xHp3dPJMmEKEv nCzycKMmXvPcx8tvYKHfJ XslRF1jdDxlO3BsvQU6DC Xik6r4Bz37A72fP2BpqKU +DPLllES2mOZ2 fQ6aWhDoJaS9RYiuB995T oZuiRJnVsquj8zcv0ukiC m4UaU8HFTnahMqdEmoFJX 3f0OfIo04L63q IHdpZHRoPSIxNSUiIHZhb Jcdhd8uoK8dEx5+PGNvbC S2xTY2uY6dUgCtQxE8JRn rH565YfCybWYl Tymdy2ubi0sujIm9XnAxB SFrmaImzPtoFTZ8d7RdYq 15D1ZvdBlzh4PhYjt2ol8 3pYTrd6Q2fBB6 E1MpVDRlxwnhtEGtsUubS Q3rNSWrzayaUWKpeO4wPB EoD1k2ZxHqTfK0XAwsC8X annH0XQTssBPi FAimXEK0D25mk2I5NGGpE ISpADX9tHA6eD8llLhgfm ogbGVmdDsgdmVydGljYWw cOAxbC955JIVm lVmkYIVnpO8bLQNpoDEaj NjfTH9pSHAywmtgOmEPRT REWSwgSEFOTkFIIEdSQUN QEF82VU11kAWz p4J8vJA5F3UgNYPwcvwne xtquYV4PNKrXXSinO92mV LtLTiuXo1oh5F7m444KIR rCRXynR04Pd8r dNbwNQXeeDKCuF8zxisdi 4alrpkiApBcYAUsAVq5ET j2VYAdpFzoOhHvUZC7NqD 5YEO9mFGnlC6c cTvjvoknjG5hTyl+MDMvM DkvMjAwMTwvdGQ+PHRkIH X1uJtyOHzdDZBmzN4cTEA cK5l1PxVyYfC9 EGfuD2EkSNZiowvgBe52t H4hRzCgNiU7EXebI7Pnyf V3BLXdvMGyTGqlWDB0Q54 cv8N7WFOlQJAy SBX8zRK9aB6zzYwcliiij GVmdDsgdmVydGljYWwtYW vtJ543XWRgqAxvTmXcHPy vIDBkPG96LF90 yWSyr3E5lEQ0E8FaEBRgr ppunuqdxEQ3IXObSHZwgU 09cDRjCDtmUb6lt6C7t36 3MNFmSJBciQ08 Dv2wmJgbLQTyuHWUsV9rq zqbh6opldwjZyMjESWbDD m4BHd6DTZivNdlIlArUSU 2BvB5VVY3tSWd rX2agYcbjnrabZ6sDfh+R zJPJIkLQV99EU70oOQak4 J1dNK1Y0ArCNNatszcnjz vsHL0WJVdHZSa jP02tPOpBAwcAe1ln7J9t 008CZRvYYBuzP39Zt6oyS aqOKZccKIDaC4npussw6r vcjogIzAwMDAw HEd5LZz2DHOegTzuNgSkS CF3HmP3MJC6jWPcgQ7spF nzhqiejK8gNyn+H5B6J7Y kPjwvdHI+PC90 TKLcSF08dBSslTUic7txy Hf9OgZiKYGoAFR7fNdmGB yph5ZhIDHcI03hzMJdl7Y 6IGNvbGxhcHNl BvSqtPD3fB0zTCmdozlkz 2sprzzwUvzfw7gcqe23uY 23R46sBEzbOIZnNUFaSCJ bDSVfjNklqw0i cP7rCl5+OPHaiSR8sLW6j Y4gTqFnXiF8DNiyI525Fd GcbKDnXwoog8oiw4opcAx 9IjIwJSIgdmFs vKvbFRF8j7RdZa56J30sG HdpZHRoPSIyMCUiIHZhbG hsnc3xjX1mFb2+BC9nt1s uom31eX34qJT+ IHWhCZY0jXgiLEveITLir L6rXIqlSyX7OSOsJvIedV 84rUQlKWzyQw0obNcnsLa lAJ7lSRJqdfis u430DwKng8ehVUNbsWSsY GzzVLN2Q83pz6U5TFVyZK DhTDS5rDO4bV9iaDngzvo gbGVmdDsgdmVy uVgaVBkwUOqmN272NQOuv GojHlBvgIWwU6wkctQGWK 1lOjwvdGQ+FJRgQHD2bLm rZOflZUCelS2w NETaQ5a8LaYiLiE8BQhxX 1MfbtY1BZJcgJRdIYFqjE DAwE3xqkvji8fduoflEuU mWYVpKKn8ULx6 GARpxXpqNyLmKAI2LlW2A WR3wTSzdL8azHldxfctnQ 9wOyc+RklOOjwvdGQ+PHR kNBR4uRroHNia JMThtW3mNHQbY9n5PlSkX tF1RDqcJ9CmscM8KSZrhX VgGEEuzNKYvH6ghrmai5g vcjogIzAwMDAw NSu1HWj4OZHkzXsdBfWeD XY1MuM6BRE9kPPrcU3rtE vxyppgyR9mQcu+TVJOOjw vdGQ+PHRkIHN0 bEieHVjfXPKpiE3zWAMuF 1d7CpOsEdJ6XHdqI0Epog M4ODQdsVXxXBUdzRCGpD4 tontgo0cwqium PxAvYGVbYNr4VVo8JIPcs GyoFgTeEWV8MxD4ZHA3iZ HutJ8rbNicatxlrC2dDax +SWS8CVF8CA59 GD60J6CiVvlmeBZpgJS+P HRhYmxlIHdpZHRoPScxMD PzMjBtaHapCX4nFk4kKKM yLWNvbGxhcHNl OiB (more content not included)... Normal [facility] C Throaton 07-31-2020 C Throat Ordered by Discern. Normal throat regi isolated No pathogens isolated Normal [facility] Comment on above: Performed By: #### [id number] ####[facility] (DEFAULT)[address] [place] [address] ED Clinical Summaryon 2020 ED Clinical Summary [facility] ? Urgent Care [address] [place] [address] Clinical Summary PERSON INFORMATION Name: LEIGH MONTOYA Age: 20 Years Sex: FEMALE : 2000 MRN: Acct#: Visit Reason: UC - Sore Throat; THROAT PAIN Arrival: 07/29/2020 09:44:22 Discharge: 07/29/2020 10:23:00 LOS: 000 00:39 Check In: 07/29/2020 09:44:22 Checkout: 07/29/2020 10:23:00 Address: [address] [place] [address] PCP: Flex Wang DO PROVIDER INFORMATION Provider [...] Negative . Impression and Plan Diagnosis Pharyngitis (JNM95-TZ J02.9, Discharge, Medical) Plan Condition: Stable. Disposition: Discharged: Time 07/29/2020 10:17:00 (more content not included)... Normal [facility] ED Note - Provideron 021 ED [...] Negative . Impression and Plan Diagnosis Pharyngitis (VUD95-CO J02.9, Discharge, Medical) Plan Condition: Stable. Disposition: Discharged: Time 07/29/2020 10:17:00, to home. Patient was given the following educational materials: Pharyngitis, Trbd-ka-Ekfk, Pharyngitis, Mklq-sy-Ekre. Follow up with: Flex Wang Within 2 [...] 07/29/2020 10:20 EST] Patricia Meeks PA-C Normal [facility] ED Patient Summaryon 021 ED Patient Summary [facility] ? Urgent Care [address] [place], [place] [id number] PATIENT DISCHARGE INSTRUCTIONS Patient Information Name: LEIGH MONTOYA Age: 20 Years Date of : 2000 [facility]: [id number] Reason For Visit: UC - Sore Throat; THROAT PAIN Arrival Time: 07/29/2020 09:44:22 Primary Care Physician: Flex Wang DO Attending Physician: Patricia Meeks PA-C Comment: Patient Education With: Address: When: Flex Wang [address] [facility], [address] [place] [phone] Business (1) Within 2 to 4 days [...] Follow these instructions at home: ? Take clpm-aem-yvaztfh and prescription medicines only as told by [...] 10/22/2008 Document Revised: 04/18/2018 Document Reviewed: 06/11/2017 [employer] Patient Education ? 2020 [employer]. Medication Information: The exam and treatment you received today in the [facility] Emergency Department were for an urgent problem and are not intended as complete care. It is important for you to follow up with a doctor, nurse practitioner, or physician?s blood and plasma laboratory assistant for ongoing care. If your symptoms [...] so we can reach you if necessary. [facility] Emergency Department has provided you with a complete list of medications post discharge. Please inform your electrical assistant/provider of your visit and for further [...] Throat (C11 (more content not included)... Normal [facility] Strep Aon 07-29-2020 Strep procedure control Pass Normal [facility] Comment on above: Performed By: #### [id number] ####[facility] (DEFAULT)[address] [id number] Streptococcus A Negative Normal Negative [facility] Comment on above: Performed By: #### [id number] ####[facility] (DEFAULT)[address] [place] [address] [facility] 021 Urgent Care Record [facility] ? Urgent Care [address] [place] [id number] PATIENT DISCHARGE INSTRUCTIONS Patient Information Name: LEIGH MONTOYA Age: 20 Years Date of : 2000 Reason For Visit: UC - Sore Throat; THROAT PAIN Arrival Time: 07/29/2020 09:44:22 Primary Care Physician: Flex Wang DO Attending Physician: Patricia Meeks PA-C Comment: Visit Diagnosis: Diagnoses This Visit Pharyngitis (J02.9) UC - Sore Throat ([id number]) If you received any narcotics, sedation, or [...] When: Flex Wang [address] [facility], [address] [place] [phone] Business (1) Within 2 to 4 days [...] and treatment you received today in the [facility] Urgent Care were for an urgent problem and are not intended as complete care. It is important for you to follow up with a doctor, nurse practitioner, or physician?s blood and plasma laboratory assistant for ongoing care. If your symptoms [...] so we can reach you if necessary. [facility] has provided you with a complete list of medications post discharge. Please inform your electrical assistant/provider of your visit and for further [...] Follow these instructions at home: ? Take onbe-zal-qpubeft and prescription medicines only as told by [...] help righ (more content not included)... Normal [facility] Coding Summaryon 06-27-2020 Coding Summary CODING DATE: 06/27/2020 [facility] STATUS: Home PAYOR: Commercial Insurance [...] Nano Padilla Date Saved: 06/27/2020 12:37 pm [facility] ED Clinical Summaryon 2020 ED Clinical Summary [facility] ? Urgent Care [address] [place] [address] Clinical Summary PERSON INFORMATION Name: LEIGH MONTOYA Age: 19 Years Sex: FEMALE : 2000 MRN: Acct#: Visit Reason: UC - Ear Pain; UC - Ear Pain; RIGHT EAR PAIN Arrival: 06/18/2020 15:00:59 Discharge: 06/18/2020 15:27:00 LOS: 000 00:27 Check In: 06/18/2020 15:00:59 Checkout: 06/18/2020 15:27:00 Address: [address] [place], [place] [id number] PCP: Flex Wang DO PROVIDER INFORMATION Provider Role Assigned Unassigned Monica Dunn MANAGEMENT COORDINATOR Nurse 06/18/2020 15:03:15 Alessandro PA, Marv ED PA 06/18/2020 15:03:24 VITALS INFORMATION Vital Sign Triage Latest Temperature Tympanic Temperature Temporal Artery Pulse Rate O2 Sat 98 % 98 % Respiratory Rate Blood Pressure /78 mmHg /78 mmHg MEDICAL INFORMATION Medications Given: Allergy Information: sulfamethoxazole; ibuprofen PHYSICIAN DOCUMENTATION DISCHARGE INFORMATION: Discharge Disposition: Home Discharge Location: Home PATIENT EDUCATION INFORMATION Instructions: Otitis Media, Adult, Dweq-pm-Ilji Follow-Up: With: Address: When: Flex Wang [address] [facility] [address] Business (1) Comments: Begin on the amoxicillin-clavulana te antibiotic take every 12 hours for the next 10 days Follow-up with your primary care physician in 3-5 days for reevaluation, sooner if any worsening symptoms DIAGNOSIS: Otitis media, right Patient Understands: Yes - Patient/family/caregi nela verbalizes understanding of instructions given Comment: [facility] ED Patient Summaryon 021 ED Patient Summary [facility] ? Urgent Care [address] [place] [address] PATIENT DISCHARGE INSTRUCTIONS Patient Information Name: LEIGH MONTOYA Age: 19 Years Date of : 2000 [facility]: [id number] Reason For Visit: UC - Ear Pain; UC - Ear Pain; RIGHT EAR PAIN Arrival Time: 06/18/2020 15:00:59 Primary Care Physician: Flex Wang DO Attending Physician: Marv Shannon Comment: Patient Education With: Address: When: Flex Wang [address] [facility] [place] [id number] Business (1) Comments: Begin on the amoxicillin-clavulana [...] Follow these instructions at home: ? Take hdmc-ppr-aitndey and prescription medicines only as told by [...] 10/22/2008 Document Revised: 04/18/2018 Document Reviewed: 05/27/2017 [employer] Patient Education ? 2020 [employer]. Medication Information: The exam and treatment you received today in the [facility] Emergency Department were for an urgent problem and are not intended as complete care. It is important for you to follow up with a doctor, nurse practitioner, or physician?s blood and plasma laboratory assistant for ongoing care. If your symptoms [...] so we can reach you if necessary. [facility] has provided you with a complete list of medications post discharge. Please inform your electrical assistant/provider of your visit and for further instruction on these medications. Any specific questions regarding your chronic medications and dosages should be discussed with your primary care physician(s) and/or pharmacist. [id number], [address] [place] [id number], [phone] amoxicillin-clavulana te (Augmentin 500 mg-125 mg oral [...] media, right (H66.91) UC - Ear Pain ([id number]) UC - Ear Pain ([id number]) If you received any narcotics, sedation, or any other medication that causes drowsiness for the next 24 hours, unless otherwise directed: ? Do not drive a car. ? Do not operate machinery such as power tools, lawn mowers, drills, sewing machines, or stoves ? Avoid alcoholic beverages and drugs for allergies, n (more content not included)... Normal [facility] Note- Provideron 06-18-2020 Urgent [...] Impression and Plan Diagnosis Otitis media, right ([id number] H66.91, Discharge, Medical) Plan Prescriptions: [facility] Pharmacy: Augmentin 500 mg-125 mg oral tablet (Prescribe): 1 tab(s), PO, q12hr, for 10 day(s), 20 tab(s), 0 Refill(s). Patient was given the following educational materials: Otitis Media, Adult, Yyfg-tm-Qpxl. Follow up with: Flex Wang Begin on the amoxicillin-clavulana te antibiotic take every 12 hours for the next 10 days Follow-up with your primary care physician in 3-5 days for reevaluation, sooner if any worsening symptoms. Counseled: Patient, Regarding diagnosis, Regarding diagnostic results, Regarding treatment plan, Regarding prescription, Patient indicated understanding of instructions. Normal [facility] Recordon 01-30-2 021 Urgent Care Record [facility] ? Urgent Care [address] [facility] [place] [address] PATIENT DISCHARGE INSTRUCTIONS Patient Information Name: LEIGH MONTOYA Age: 19 Years Date of : 2000 Reason For Visit: UC - Ear Pain; UC - Ear Pain; RIGHT EAR PAIN Arrival Time: 06/18/2020 15:00:59 Primary Care Physician: Flex Wang DO Attending Physician: Marv Shannon Comment: Visit Diagnosis: Diagnoses This Visit Otitis media, right (H66.91) UC - Ear Pain ([id number]) UC - Ear Pain ([id number]) If you received any narcotics, sedation, or [...] When: Flex Wang [address] [facility], [place] [address] Business (1) Comments: Begin on the amoxicillin-clavulana te antibiotic take every 12 hours for the next 10 days Follow-up with your primary care physician in 3-5 days for reevaluation, sooner if any worsening symptoms Medication Information: The exam and treatment you received today in the [facility] were for an urgent problem and are not intended as complete care. It is important for you to follow up with a doctor, nurse practitioner, or physician?s blood and plasma laboratory assistant for ongoing care. If your symptoms [...] so we can reach you if necessary. [facility] has provided you with a complete list of medications post discharge. Please inform your electrical assistant/provider of your visit and for further instruction on these medications. Any specific questions regarding your chronic medications and dosages should be discussed with your primary care physician(s) and/or pharmacist. [facility], [address] [place], [place] [id number], [phone] amoxicillin-clavulana te (Augmentin 500 mg-125 mg oral [...] Follow these instructions at home: ? Take zbdi-amv-cqwrkyr and prescription medicines only as told by [...] (paralyzed). ? You (more content not included)... [facility] Consent Formson 04-28-2020 Consent Forms [id number] .[facility] Orderson 04-28-2020 Provider Orders [id number] .[facility] Summary[facility] 04-25-2020 Coding Summary CODING DATE: 04/25/2020 [facility] STATUS: Home PAYOR: Commercial Insurance [...] Nano Padilla Date Saved: 04/25/2020 02:38 pm [facility] .QC Respiratory Panel 2.1 (B ioFire)on 04-22-2020 Internal Control-Resp Panel 2.1(BioFire) Pass [facility] Comment on above: Order Comment: Order ed by Holley.[[id number]] Performed By: #### 6 [id number], [id number] ####[facility] (DEFAULT)[address] [place] [address] Respiratory Panel 2.1 (BioFi re)on 04-22-2020 Adenovirus -BioFire Not detected Normal Not Detected [facility] Comment on above: Performed By: #### 6 [id number], [id number] ####[facility] (DEFAULT)[address] [address] Bordetella parapertussis -BioFire Not detected Normal Not Detected [facility] Comment on above: Performed By: #### 6 [id number], [id number] ####[facility] (DEFAULT)[address] [address] Bordetella pertussis -BioFire Not detected Normal Not Detected [facility] Comment on above: Performed By: #### 6 [id number], [id number] ####[facility] (DEFAULT)[address] [place] [address]7517 Chlamydia pneumoniae -BioFire Not detected Normal Not Detected [facility] Comment on above: Performed By: #### 6 [id number], [id number] ####[facility] (DEFAULT)[address] [place] [address] Coronavirus 229E (Not COVID-19) -BioFire Not detected Normal Not Detected [facility] Comment on above: Performed By: #### 6 [id number], [id number] ####[facility] (DEFAULT)[address] [place] [address] Coronavirus HKU1 (Not COVID-19) -BioFire Not detected Normal Not Detected [facility] Comment on above: Performed By: #### 6 [id number], [id number] ####[facility] (DEFAULT)[address] [place] [address] 18222 Coronavirus NL63 (Not COVID-19) -BioFire Not detected Normal Not Detected [facility] Comment on above: Performed By: #### 6 [id number], [id number] ####[facility] (DEFAULT)[address] [place] [address]383 Coronavirus OC43 (Not COVID-19) -BioFire Not detected Normal Not Detected [facility] Comment on above: Performed By: #### 6 [id number], [id number] ####[facility] (DEFAULT)[address] [place] [address]66 Employed in healthcare? No Invalid Interpretation Code [facility] Comment on above: Performed By: #### 6 [id number], [id number] ####[facility] (DEFAULT)[address] [place] [address] 30850 Group care resident? No Invalid Interpretation Code [facility] Comment on above: Performed By: #### 6 [id number], [id number] ####[facility] (DEFAULT)[address] [place] [address]990 Human Metapneumovirus -BioFire Not detected Normal Not Detected [facility] Comment on above: Performed By: #### 6 [id number], [id number] ####[facility] (DEFAULT)[address] [place] [address] 88994 Human Rhinovirus/Enterovir us -BioFire Not detected Normal Not Detected [facility] Comment on above: Performed By: #### 6 [id number], [id number] ####[facility] (DEFAULT)[address] [place] [address] 58260 In ICU? No Invalid Interpretation Code [facility] Comment on above: Performed By: #### 6 [id number], [id number] ####[facility] (DEFAULT)[address] [place] [address] 77563 Influenza A (no subtype) -BioFire Not detected Normal Not Detected [facility] Comment on above: Performed By: #### 6 [id number], [id number] ####[facility] (DEFAULT)[address] [place] [address] 02787 Influenza A -BioFire Not detected Normal Not Detected [facility] Comment on above: Performed By: #### 6 [id number], [id number] ####[facility] (DEFAULT)[address] [place] [address] 15139 Influenza A H1 -BioFire Not detected Normal Not Detected [facility] Comment on above: Performed By: #### 6 [id number], [id number] ####[facility] (DEFAULT)[address] [place] [address] 72675 Influenza A H1-2009 -BioFire Not detected Normal Not Detected [facility] Comment on above: Performed By: #### 6 [id number], [id number] ####[facility] (DEFAULT)[address] [place] [address] 34340 Influenza A H3 -BioFire Not detected Normal Not Detected [facility] Comment on above: Performed By: #### 6 [id number], [id number] ####[facility] (DEFAULT)[address] [place] [address] Influenza B -BioFire Not detected Normal Not Detected [facility] Comment on above: Performed By: #### 6 [id number], [id number] ####[facility] (DEFAULT)[address] [place] [address] Mycoplasma pneumoniae -BioFire Not detected Normal Not Detected [facility] Comment on above: Performed By: #### 6 [id number], [id number] ####[facility] (DEFAULT)[address] [place] [address] Parainfluenza Virus 1 -BioFire Not detected Normal Not Detected [facility] Comment on above: Performed By: #### 6 [id number], [id number] ####[facility] (DEFAULT)[address] [place] [address] Parainfluenza Virus 2 -BioFire Not detected Normal Not Detected [facility] Comment on above: Performed By: #### 6 [id number], [id number] ####[facility] (DEFAULT)[address] [place] [address] Parainfluenza Virus 3 -BioFire Not detected Normal Not Detected [facility] Comment on above: Performed By: #### 6 [id number], [id number] ####[facility] (DEFAULT)[address] [place] [address] Parainfluenza Virus 4 -BioFire Not detected Normal Not Detected [facility] Comment on above: Performed By: #### 6 [id number], [id number] ####[facility] (DEFAULT)[address] [place] [address] status? Not Invalid Interpretation Code [facility] Comment on above: Performed By: #### 6 [id number], [id number] ####[facility] (DEFAULT)[address] [place] [address] Respiratory Syncytial Virus -BioFire Not detected Normal Not Detected [facility] Comment on above: Performed By: #### 6 [id number], [id number] ####[facility] (DEFAULT)[address] [place] [address] SARS-CoV-2 (COVID-19) RNA OZZIE+probe Ql (Unsp spec) Not detected Normal Not Detected [facility] Comment on above: Performed By: #### 6 [id number], [id number] ####[facility] (DEFAULT)[address] [place] [address] SARS-CoV-2 (COVID-19) RNA OZZIE+probe Ql (Unsp spec) No Invalid Interpretation Code [facility] Comment on above: Performed By: #### 6 [id number], [id number] ####[facility] (DEFAULT)[address] [place] [address] Symptomatic as defined by CDC? No Invalid Interpretation Code [facility] Comment on above: Performed By: #### 6 [id number], [id number] ####[facility] (DEFAULT)[address] [place] [address] Vital Signs Date Time Vital Sign Value Performing Clinician Facility 12-06-2021 16:30-0400 Body height 160.02 cm Ezequiel Melo Other [email or web address] Other 12-06-2021 16:30-0400 Body mass index (BMI) [Ratio] 41.62 kg/m2 Ezequiel Melo Other [email or web address] Other 12-06-2021 16:30-0400 Body weight 106.6 kg Ezequiel Melo Other [email or web address] Other 10-11-2021 14:45-0400 Body height 160.02 cm Ezequiel Dijessie Other [email or web address] Other 10-11-2021 14:45-0400 Body mass index (BMI) [Ratio] 41.98 kg/m2 Ezequiel Adamsjessie Other [email or web address] Other 10-11-2021 14:45-0400 Body weight 107.5 kg Ezequiel Melo Other [email or web address] Other 10-11-2021 14:45-0400 Diastolic blood pressure 79 mm[Hg] Ezequiel Melo Other [email or web address] Other 10-11-2021 14:45-0400 Systolic blood pressure 128 mm[Hg] Ezequiel Melo Other [email or web address] Other Encounters Encounter Date Encounter Type Care [...] Start: 08-29-2022 End: 08-29-[address] [facility]IRANDA [facility] Facility:H1 Start: 01-12-2022 End: 01-16-[address] MIRANDA [facility] Facility:H1 Start: 12-06-2021 End: 12-06-2021 ambulatory Ezequiel Melo Other [email or web address] Other Start: 12-06-2021 Patient encounter procedure Ezequiel Melo [facility] Start: 10-11-2021 End: 10-11-2021 ambulatory Ezequiel Melo Other [email or web address] Other Start: 10-11-2021 [facility] visit new patient Ezequiel Melo [facility] Payers Date Payer Category Payer Unknown [id number] 2000 Unknown [id number] 2.16.84 [id number] 2000 Unknown [id number] 2.16.84 [id number] 2000 Unknown [id number] 2.16.84 0.1.705316.3.579.2.9 2000 Unknown [id number] 2.16.84 [id number] 2000 Unknown [id number] 2.16.84 0.1.854566.3.579.2.9 2000 Unknown [id number] 2.16.84 0.1.902627.3.579.2.9 2000 Unknown [id number] 2.16.84 0.1.057647.3.579.2.9 2000 Unknown [id number] 2.16.84 0.1.188869.3.579.2.1259 2000 Unknown [id number] 2.16.84 0.1.073659.3.579.2.9 2000 Unknown [id number] 2.16.84 [id number] 1959 Unknown [id number] Medicaid [id number] . [id number] Social History Date Type Detail Facility Sex Assigned At [email or web address] Other Evaluation note 12-06-2021 Note Date & Type Note Facility 12-06-2021 Evaluation note Encounter Date Diagnosis Assessment Notes Nov, Dyspepsia (ICD-10 - K30) patient states does have some bloating in the left center she does have pain noted. patient is advised that we can start levsin and refer to arch pad cementer for food testing. [email or web address] Other Evaluation note 10-11-2021 Note Date & Type Note Facility 10-11-2021 Evaluation note Encounter Date Diagnosis Assessment Notes September, Bloating (ICD-10 - R14.0) September, Dyspepsia (ICD-10 - K30) September, Abdominal pain (ICD-10 - R10.9) [email or web address] Other Clinical Note 04-05-2021 Note Date & [...] This may take several hours. ? Take bbtj-tgq-erputjg and prescription medicines only as told by your health care provider. ? When you can walk without pain, wear supportive shoes that have stiff soles. Do not wear flip-flops, and do not walk barefoot. ? Keep all follow-up visits as told by your health care provider. This is important. Contact a health care provide (more content not included)... [facility] Clinical Note 07-29-2020 Note Date & Type Note Facility 07-29-2020 Note Patient Education Ma terials Follows:Disease Pharyngitis Pharyngitis is a sore throat (pharynx). This is when there is redness, pain, and swelling in your throat. Most of the time, this condition gets better on its own. In some cases, you may need medicine. Follow these instructions at home: ? Take lsjy-xsz-zopedsx and prescription medicines only as told by [...] Reviewed: 06/11/2017 Else[employer] Patient Education ? 2019 [employer]. [facility] Clinical Note 06-18-2020 Note Date & Type Note Facility 06-18-2020 Note Patient Education Ma terials Follows: Otitis Media, Adult Otitis media means that the middle ear is red and swollen (inflamed) and full of fluid. The condition usually goes away on its own. Follow these instructions at home: ? Take davy-ucq-cxazjoy and prescription medicines only as told by [...] 10/22/2008 Document Revised: 04/18/2018 Document Reviewed: 05/27/2017 [employer] Patient Education ? 2019 [employer]. [facility] Clinical Note 04-22-2020 Note Date & Type Note Facility 04-22-2020 Note Nasal swab performed without complication. Patient tolerated well. Education given. Patient verbalized understanding. [Electronically Signed on: 04/22/2020 15:05 EST] Miri Nuñez RN [Verified on: 04/22/2020 15:05 EST] Miri Nuñez RN [facility] History general Narrative - Reported Note Date & Type Note Facility History general Narrative - Reported Type Medical History PCOS Medical History Endometriosis Surgical History laparoscopy - endometriosis [email or web address] Other Reason for referral (narrative) Note Date [...] is able to get in before this. [email or web address] Other Reason for visit Narrative Note Date & Type Note Facility Reason for visit Narrative PATIENT HERE AT THE REQUEST OF DR. VERGARA FOR EVALUATION & TREATMENT OF BLOATING [email or web address] Other Reason for visit Narrative Note Date [...] of the side effects that were listed. [email or web address] Other Summary Purpose Family History No Family History Records FoundNo Family History Records FoundNo Family History Records FoundNo Family History Records Found Advance Directives No Advanced Directives Records FoundNo Advanced Directives Records FoundNo Advanced Directives Records FoundNo Advanced Directives Records Found Additional Source Comments INFORMATION SOURCE (unrecogn ized section and content) DATE CREATED AUTHOR 04/21/2021 [facility] DATE CREATED AUTHOR AUTHOR'S ORGANIZ ATION 11/08/2021 [facility] DATE CREATED AUTHOR AUTHOR'S ORGANIZ ATION 09/06/2022 [facility] DATE CREATED AUTHOR AUTHOR'S ORGANIZ ATION 01/31/2024 [facility] EPIC FOR RECORDS PERTAINING TO [...] BE BASED ON THE PRIMARY CLINICAL RECORDS. [facility]. provides no warranty or guarantee of the accuracy or completeness of information in this document.
[2024-02-13 19:29] VITALS: BP 139/72; PULSE 100
--- NOTE | 2024-02-13 19:39 | US_ITS ---
[address] [address] Patient Name: SHAQUILLE VIEYRA MRN: [id number] date: 2000 Sex: F Assigned Patient Location: US Current Patient Location: US Accession/Order Number: [id number] Exam Date: 02/13/2024 19:43 Report Date: 02/14/2024 04:22 At the request of: MIRIAM HAWLEY Procedure: US OB BPP w non-stress EXAMINATION: US OB BPP w non-stress HISTORY: INDUCED HYPERTENSION O13.9 COMPARISON: Ultrasound OB biophysical 02/06/2024 TECHNIQUE: Ultrasound biophysical profile was performed in the radiology department. BREATHING MOVEMENTS: 2 GROSS BODY MOVEMENTS: 2 TONE: 2 QUALITATIVE AMNIOTIC FLUID VOLUME: 2 PRESENTATION: CEPHALIC HEART RATE: 151.69 bpm AMNIOTIC FLUID VOLUME: 16.60 cm GESTATIONAL AGE: 36 weeks 4 days US/US OB BPP w non-stress IMPRESSION: Total biophysical profile score: 8 Electronically authenticated by: KEEGAN HUMPHREY Date: 02/14/2024 04:22
== END 2024-02-13 20:05 | disposition home or self-care (01) ==
LOC: US 07:01 → FBC 18:59
PROVIDERS: Visit Provider Physician Assistant
DX: O16.3 Unspecified maternal hypertension, third trimester (principal); Z3A.36 36 weeks gestation of pregnancy
CPT/HCPCS: 76818

== ENCOUNTER 2024-02-17 18:23 | Inpatient (IN) | payer OTHER, SELFPAY ==
[2024-02-17] VITALS (21 sets, daily range): BP systolic 132–178; BP diastolic 68–99; PULSE 78–100; TEMP 37.1–37.3
--- OUTSIDE RECORDS SUMMARY | 2024-02-17 07:19 | XMS_ITS | CCD ---
Author Organization [facility] Care Team Providers Care Medical Chemist Name Role Phone Ezequiel Melo Unavailable [facility] [place], DR MIRANDA Primary Care Unavailable JAI [...] Reaction(s) Facility (2 sources) Sulfacetamide Drug Allergy [facility] [email or web address] Other (1 source) Sulfonamides (Antibiotic) Drug allergy (disorder) [facility] Repository Medications Current Medications Medication [...] 21 to 29on 09-06-2022 . . Normal [facility] Comment on above: Performed By: #### [id number] #### [facility] [address] [place] [address] Dr. Dat Wesley Age Gdln ACOG Testing 21- Normal [facility] Comment on above: Performed By: #### 4 [id number] #### [facility] [address] [place] [address] Dr. Dat Wesley DIAGNOSIS: Comment Normal [facility] Comment on above: Result Comment: NEGA TIVE FOR INTRAEPITHELIAL LESION OR MALIGNANCY. Performed By: #### 4 [id number] #### [facility] [address] [place] [address] Dr. Dat Wesley Methodology: Comment Normal [facility] Comment on above: Result Comment: This liquid based ThinPrep(R) pap test was screened with the use of an image guided system. Performed By: #### 4 [id number] #### [facility] [address] [place] [address] Dr. Dat Wesley Note: Comment Normal [facility] Comment on above: Result Comment: The Pap smear is a screening test designed to aid in the detection of premalignant and malignant conditions of the uterine cervix. It is not a diagnostic procedure and should not be used as the sole means of detecting cervical cancer. Both false-positive and false-negative reports do occur. . Performed By: #### 4 [id number] #### [facility] [address] [place] [address] Dr. Dat Wesley Performed by: Comment Normal [facility] Comment on above: Result Comment: Singh Sanders Procurement Manager (ASCP) Performed By: #### 4 [id number] #### [facility] [address] [place] [address] Dr. Dat Wesley Reflex Criteria: Comment Normal [facility] Comment on above: Result Comment: The HPV DNA reflex criteria were not met with this specimen result therefore, no HPV testing was performed. . Performed By: #### 4 [id number] #### [facility] [address] [place] [address] Dr. Dat Wesley Specimen adequacy: Comment Normal [facility] Comment on above: Result Comment: Sati sfactory for evaluation. Endocervical and/or squamous metaplastic cells (endocervical component) are present. Performed By: #### 4 [id number] #### [facility] [address] [place] [address] Dr. Dat Wesley HCG,Urineon 11-03-2021 Beta HCG ( test) Ql (U) Negative Normal [facility] Comment on above: Result Comment: PERF ORMED BY: [address] [place] [id number] PATHOLOGIST FOREST PATHOLOGY TEACHER SULTANA PETE M.D. Performed By: #### U HCG #### [place] [id number] [facility] 11-03-2021 L - -------- Specimen: [id number] Received: 11/03/21 Status: AYDIN Johnson Num: [id number] Spec Type: Surgical Subm Dr: Ezequiel Melo MD Tissues: A Small Intestine - Biopsy/Polyp (SMALL BOWEL) Procedures: HE Stain/2, Gross/Micro L4 -------- Patient Age/Sex Location Account Attending Physician -------- Leigh Singh / [id number] Ezequiel Melo MD -------- SPEC NUM: [id number] RECD: 11/03/21 STATUS: AYDIN TRANG NUM: [id number] PAPI: 11/03/[address] [facility] [address]: Ezequiel Melo MD ENTERED: 11/03/21 [facility] DR: SPEC TYPE: Surgical DEPT: S ORDERED: [...] is performed. This case is interpreted at [facility], [place], [place] -------- Specimen: Received: 11/03/21 Status: AYDIN Johnson Num: [id number] Spec Type: Surgical Subm Dr: Ezequiel Melo MD Tissues: A Small Intestine - Biopsy/Polyp (SMALL BOWEL) Procedures: HE Stain/2, Gross/Micro L4 -------- Patient: Leigh Singh [id number] (Continued) -------- Specimen: [id number] Received: 11/03/21 (Continued) Signed (signature on file) Gabe Ellis MD 11/06/21 1703 -------- Specimen: Received: 11/03/21 Status: RAFAELChino Johnson Num: [id number] Spec Type: Surgical Subm Dr: Ezequiel Melo MD Tissues: A Small Intestine - Biopsy/Polyp (SMALL BOWEL) Procedures: HE Stain/2, Gross/Micro L4 -------- Patient: JennyrodriguezLeigh villatoro [id number] (Continued) -------- Specimen: Received: 11/03/21 (Continued) CPT Codes 17431 -------- -------- Specimen: Received: 11/03/21 Status: AYDIN Johnson Num: [id number] Spec Type: Surgical Subm Dr: Ezequiel Melo MD Tissues: A Small Intestine - Biopsy/Polyp (SMALL BOWEL) Procedures: HE Stain/2, Gross/Micro L4 -------- Patient: JuanJaclyn villatorolauren Craig [id number] (Continued) -------- Signed (signature on file) Gabe Ellis MD 11/06/21 1703 Normal [facility] SARS-CoV-2 (COVID-19) RNA OZZIE+probe Ql (Unsp spec) Negative Normal Negative [facility] Comment on above: Order Comment: Healt hcare Worker?: N Result Comment: Testing for SARS-CoV-2 by RT-PCR This test was developed and its performance characteristics determined by [employer] and validated at the [facility]. This test has not been [...] is terminated or revoked sooner. PERFORMED BY: [place] [address] PATHOLOGIST FOREST PATHOLOGY TEACHER SULTANA PETE M.D. Performed By: #### C OVID 19 [facility] #### [address] Coding Summaryon 04-19-2021 Coding Summary HTMLBase 64 VylmuvcrPJo2uOg+PGhlY WQ+LO3OGERnM02bhBXafL 5OG3fSCG0ELHFWAGQZWX3 QLQ9ahBS3KViaB9WnhhXd CmohcDJuEF77ZYd6WWF3w OdhKWergU9edSFqB5i0Hs YtUZ24xQ86AUgmVDOfZvT 3LjZpbjsgbWFy V3tvRsIicLEnSus+PHRhY mxlIHdpZHRoPScxMDAlJy QpyPboBX7tKu3oTMAtKSO vbGxhcHNlOiBj p3rxKESbBFudPP5hdQwkP 9QezPC5IJEvf4g2Sz16bC I+LJLtVZX0lEyzVKvtp24 8ReBdz8utDKS9 wJHuNNpbPDK7Y94ei9T1Y BCeFTOwOXM8gAX5sX2slX gfwdolJ4HusPAtXsZ3QAQ 6oCPeuP5mdAqh betchD1yVhs+O90ODP9RH NATPB2MNni8J5FkYmbyaN I+OA17NVKcJZ35cMVgcWD kk4cdeUe5UxUn LBJeSYG3kOqcXIybn7EeD HNwH55dbOXyq0R4QWFzgJ hduTCwQhZohUG0qE1hLLf hlhrwl3upnwfb Xpzur9shsi81bK97S29pV RrbPVVpNRX1MXUtTADssH bpuz2eaE9iIt1+MGjsp8q sd1ykdPb5DrVx YOEflcIsiFbxOZQ5w0GwP p88N0OvoGxru8UpGut5fg 33jZLwk5G5iQH6OVpbZFA qcQ4aNQcaBjU9 GXKhWyExnX19gBSvNEykY r5rlUxcxJgvQT4xFEJkjb ydGJRidA1aZGHreBUchTq eHQ9kJAFrgolc n618FdUcDRM3EWOoxCUmG 8XkjJ7bTsRrPKNmMQUrG0 CwnMJkVVjoC863AWmyEbH 2LXDfnrToG2Ot MYQtiByzLeM5o4T3Wc0Ck 2WoniteQLR0DToaEMMfDs GwPaSzVfB1B3EmRwi4YDK imFwwNB4sE6Pr ACCouhdaaxhugOF1YRUhX WNhuL30qEClHStaYe2pm4 C1e257AQIyIAHkdT96Fl6 udDogMTBwdCBU pP1rabehn3yttfakTpVvC EUiLKk0OBf7NDKujVidXb ReHAJ4YfQ2BDJ9fYRtfN0 ewZwbinngfS0s Oyc+F27ieB7wKRS0WOZ4l wmaUUUhsuQaMM78AI18U5 RyPjwvdGFibGU+PGRpdiB lbWeeOO5kRiWb d0bvn7FcJBobP7WdBPStW VplOfq9ULBoDIV4jON7sD 6vYKCdDLbdv2O5nBS0H2O vvtHbvj3ws5ft JZNlQFvcB48btJIbn2B6V SSznQX9ZEKkoXzsDnVbeP 93Oyc+ODQukCeqy6PvOlv ld0hme9ykdAq6 OfSrYVAmaqXdjHdaGWP4s 0BkKx97W17rZUwkWDCjCN YqGDVoBMWglAofkt8jnT7 wIi8+PGNvbCB3 nSO3hU6eXWZwClB3GZqbD 605FlFsaANbAfntk2wxb9 nwvSc8DcTrHEKondDjeXb cLEL9p6KeJa32 U92gYPpmIGWyJDIqCOBdA WUvcClkyd6wpI6gEz7+PC 3qy6nyli40rW54zHQ+PHR uZKY8tWvuZXbb HZAdoH6gRQfnRqV9HTLmW gZxsB61uFKnOWvpDi6ncA feeWedFJ6iXOKtwmfkv42 1TkRvg8cvKCTx xXLvZJzsHGU8Z21db4P4C NZsFIShGUG4bVI4oK5baW lnbjogbGVmdDsgdmVydGl jALxrSYhqG335 IHRvcDsnPlBhdGllbnQgT vMtHBo0W8PzBsk7VURriR wuCK3mbQQjHCzaYa3bpHp fxVdfJE3lATPi vnoah214QhPxo8ozZBUxg GYqUKrqFHG6F60oh5Y4RK EfQZAxQIU3hWH5tX3eaWq nbjogbGVmdDsg fsTzaQqzYOvcVQuwL269H HRvcDsnPkJpcnRoIERhdG Q6RC42YY30qOSzt4H7fQO 8M7GrNHVbldlb sivalOZ6CTEqWFSeiY68H k2rqBcuTm6oBFJaKPV3KC QfbBFwR4BznC8sDsEyACJ bDXQfR3YjpZLm TAipY093XOqhZsC1ILWms sUvN8JzLJHhbBdeKzU5v2 K4Sq8IH4D5XW16FE32wLS sb5J3xQT3V2Op ASBdhtrylzknrYO0VWEnA JHoiP21Uy6jbQskPa1hOA XaRMX9SGXnfRNbI0ZjuL2 yOiAjMDAwMDAw J8VgcSWbEUsqD274IKbwE lN2WDUcpmBwT7NaNQHysX hsSzJ7y0T1Vo4JSTg4FX1 7SU40kQPqa2D2 oOH3K4YdVFIthirngzlvr JL1AUUoKCJydV87Rs1ofM fcEj3wHLKlDGA7BSFmsOG zH1VnvA1pUiRs IRMbVANsC8DfmNLyPFfwI 793XJyeJnV1GLDcezWeN7 UsJCHjhVfiBfT0y3O4Ez3 HDUSrLK25EEP7 lXF2LB86SF95P7XrOngha GFibGU+PHRhYmxlIHdpZH RoPScxMDAlJyBzdHlsZT0 kUh0gMQAwPYCg nXhhtMBbUcJob4ubLBZvH VfjTZ4hsMebZ6RseDW0FH Kmb9t0Zr66X18kR2TtrOB +DAMteXJ1kJD8 pX9uVeNuVkI0NFwwH944K iFvqDKeYvagy6phv0cpnL w0QxG3ECPgncWqeIkbEGS 8y4ElWt30O55s IHdpZHRoPSIxNSUiIHZhb Rbham2wzG2wRd9+PGNvbC V0eZX3mM5uHsKlQnL3ZPv iQ932DkVyjSNq Nczqj8sop8qchSt0CcYlG AYmjhAkwFkfUSX8j5KmWr 20L0XviAjxi4EgTab5ny9 2yOYkx5T2pKI9 J2HdIAXeghyznTTkfIpoY X2oOZAlrcxmUAClqT2rZJ MjJ2q3KsNiHzH6BBciO1S ftaB3NBXcnIZt ETvrISJ4L98ov9Z8DTTiZ QLeFIY0qAG0fF2olTzmhv ogbGVmdDsgdmVydGljYWw nBDxlA705RZKf uXehZFVxiU7jTSUbjHXef AseAP7kEXDcqzsbEjNVZL REWSwgSEFOTkFIIEdSQUN WOR71JI93oKSm f3K2qFA0R6QoAWLewwofl bdnbFF7EWOpMLBlhP79yF FwWFmgIt5rh6O0v381BMH eOKEyhK05Oo1p lAluCVFfsABEbI4vrkcey 0iifxqtLqRuRDAkNQv7TK v9LGUvyEehAcItQXO2AtV 6GIX3hOQaqD6r dSplehcaaR9tOer+MDMvM DkvMjAwMTwvdGQ+PHRkIH Z4qGloGJceLOXojH0bLZW fD7v9ZxJnWsE5 PIjxJ0CiRRHesxasUy28l V8aDcZxGxH0WIfwZ7Pzes I5TYOgtWLnGSuaKTC9D38 fw6C2OQKjUWTy KHU4lJH2dC9jjKdngvidb GVmdDsgdmVydGljYWwtYW szM461LKLucKwaWqPlDJv vEPRaRH29KB37 fROgv9H7vHF7M6DrUKKfl qvgfztmzDE0YBVkFWHvvI 06zPOgCGsbDy2kw7G4w17 0VMEaTBHoyX36 Le3xmUdnJQWjvDXIvM2cm qdqd5wyhwkuYuXgKKYfHW t3ECt3IOBtyBddHiOtMDA 6DfP9MBN5sBYx pR9zbUkzeysjfH9yKqt+R bDHNFsZYA68SY81wVKjl2 S2lXK0U2HfKYTvzkmgeov vpHX2FWVrVTRw kZ38lYGzMZpxXf0pi8P0a 370PIJzCRFvaY20Vx5dtR wlFPMkiCALmZ2yyvals9v vcjogIzAwMDAw ELy9NFn7SRWnnTvjCyJxS CY5CgZ8DSS8jNLpsE7dnA gdarroyP4oJcq+N5A3W7C kPjwvdHI+PC90 DZIcXX22cOSudMFlv6str Ga0MxXaGLMdRZT7rWikBO tne1AgAQOfL50hvQTtj1D 6IGNvbGxhcHNl ZkZtkZT9mO6lTHgnlsaze 8fpgnbrUhuqi8kkev39zG 16Y01vBFgsJQWfAUFkQNE iSNSwdUncai9c fQ6cGq6+TVLrwOE1wEH3x F5pLdBiXvU3RBnjF720Hv YvhPJvXukhe1dlm6oppUt 9IjIwJSIgdmFs nTedELM6k9GdSb02W82qC HdpZHRoPSIyMCUiIHZhbG eflt7dvE6fGi1+TZ1os1v mxy45pC10bMV+ QKEoUOS2cKtvMMizYNMeg N0gKBdhNgQ6WVEvHvFdtC 42qDMyJDtlZz3stWnfxCa sFH7jSIPhvrsm n303JhJri3bmVNGarWJeQ AusMAH4Y65tu6Z5YVYaWA JrDVP3kSQ4cV0rgSzjelg gbGVmdDsgdmVy yZsdJYakBDxuW900GABls AygIpGtyIUaM9pazaJNXW 1lOjwvdGQ+CRRkPCS7hVq sIIaxJNBswY1e WXXjU0y3MpPbGpH1VZcuK 2TmnqI2UPXovLZbFNIzcW ODbR6eumlhy7uzlquzQkO wOXLcOKu5VSf2 TESmtMxwDaAmCIL3UnZ7C BF1cSLjzP2ooEymepdzuH 9wOyc+RklOOjwvdGQ+PHR vYFR2rYmrANzq WWEmkW6pOWQlU4z2HbYqZ iA2VZpfR9NfbxA4KIBwvF NcWFIxjSBPpN7zfeyeh0a vcjogIzAwMDAw AJn5DZi6BASqcWrlGuObD PR5TvZ6IGG9gJWooF7swL oznztgkQ3fZqh+TVJOOjw vdGQ+PHRkIHN0 dRxfARqvRPCycU0eILBdE 0p3HlAmPoD7MKxtQ4Fkvi W7OUMjuYGgMVScwNDTcI9 okeacq0akazpe UrJqGBKeAYy1NNn2XNGug QuxCeJdVHH4PbE5QQR3bD FbjD6qiRkmhdodsS6fHab +VOI0BQU4UK54 PW46Y0EzBkgllKJljWT+P HRhYmxlIHdpZHRoPScxMD OdFjWndBsxAL7hUq3pAOM yLWNvbGxhcHNl OiB (more content not included)... Normal [facility] Note- Provideron 04-06-2021 Urgent [...] and Plan Diagnosis Sprain of left foot (WVG87-HI S93.602A, Discharge, Medical) Plan Condition: Stable. Disposition: [...] she can arrange follow-up as needed. Normal [facility] ED Clinical Summaryon 2020 ED Clinical Summary [facility] [address] [place] [address] Clinical Summary PERSON INFORMATION Name: LEIGH MONTOYA Age: 20 Years Sex: FEMALE : 2000 MRN: Acct#: Visit Reason: UC - Ankle/Foot/Toe Pain or Swelling; LEFT FOOT PAIN Arrival: 04/05/2021 16:12:07 Discharge: 04/05/2021 17:50:00 LOS: 000 01:38 Check In: 04/05/2021 16:12:07 Checkout: 04/05/2021 17:50:00 Address: [facility] [place] [id number] PCP: Flex Wang DO PROVIDER INFORMATION Provider Role Assigned Unassigned Monica Dunn WATER PUMPING STATION ENGINEER Nurse 04/05/2021 16:14:32 Paul Atkins PA-C [...] With: Address: When: JEFF JESUS [address] [place] [place] [id number] Business (1) , only if needed With: Address: When: Flex Wang [address] [facility] [address] [place], [place] [id number] Business (1) Within 3 to 5 days DIAGNOSIS: Sprain of left foot Patient Understands: Yes - Patient/family/caregi nela verbalizes understanding of instructions given Comment: Normal [facility] ED Patient Summaryon 021 ED Patient Summary [facility] [address] [place], [place] [id number] PATIENT DISCHARGE INSTRUCTIONS Patient Information Name: LEIGH MONTOYA Age: 20 Years Date of : 2000 Reason For Visit: UC - Ankle/Foot/Toe Pain or Swelling; LEFT FOOT PAIN Arrival Time: 04/05/2021 16:12:07 Primary Care Physician: Flex Wang DO Attending Physician: Nirav Nunez Comment: Patient Education With: Address: When: JEFF JESUS [address], [place] [address] [address] Business (1) , only if needed With: Address: When: Flex Wang [address] [facility], [place] [address] Business (1) Within 3 to [...] ? As (more content not included)... Normal [facility] Recordon 021 Urgent Care Record [facility] ? [facility] Care [address] [facility]. [place], [place] [id number] PATIENT DISCHARGE INSTRUCTIONS Patient Information Name: LEIGH MONTOYA Age: 20 Years Date of : 2000 Reason For Visit: UC - Ankle/Foot/Toe Pain or Swelling; LEFT FOOT PAIN Arrival Time: 04/05/2021 16:12:07 Primary Care Physician: Flex Wang DO Attending Physician: Nirav Nunez Comment: Visit Diagnosis: Diagnoses This Visit Sprain of left foot (S93.602A) UC - Ankle/Foot/Toe Pain or Swelling ([id number]) If you received any narcotics, sedation, or [...] With: Address: When: JEFF JESUS [address] [address] Business (1) , only if needed With: Address: When: Flex Wang [address] [facility], [place] [address] Business (1) Within 3 to 5 days Medication Information: The exam and treatment you received today in the [facility] were for an urgent problem and are not intended as complete care. It is important for you to follow up with a doctor, nurse practitioner, or physician?s personal banking assistant for ongoing care. If your symptoms [...] so we can reach you if necessary. [facility] has provided you with a complete list of medications post discharge. Please inform your ecg technician/provider of your visit and for further instruction [...] are no br (more content not included)... [facility] XR Foot Complete Lefton 03-20 XR [...] Vishal Fernandez 04/06/21 8:27 am Technologist: NELIDA [facility] Coding Summaryon 08-01-2020 Coding Summary HTMLBase 64 JhozftjdPKl6bFr+PGhlY WQ+CM4TRCAhG31qhUAjuQ 4CP9dRUE7CCUYLFKGZCC9 BHS0xlIH3QCwhR5UmqiVr JzycsDJeRD21VHl9IUP7v CoyCEddsD0twJLmE5t8Fq RvHY46vI66INenEFHiOwF 3LjZpbjsgbWFy W9osDaZldXFuKtu+PHRhY mxlIHdpZHRoPScxMDAlJy SuhZsnVH2tBs6qETPqOLP vbGxhcHNlOiBj f3vgCMGeNUgvOX1pmYfgS 9UwnHO0WCAaz6y1On27xR I+CKZrLPD9rFozQWuzb69 1OwKwi9pyJUH0 fBTyXZomUDA5O98xi3L1A ISlTNPyQKA1qPO6tI4jbA gmfwnuD7GxzCDrByC8FCO 6qBHfwF5wxRbx dyzbjA5kAko+N10OFK7CF ENFHC8PAsn8P4KbLbctxD I+MS14GAVsTB83tINuwTR yh3pguHy8JhIp UKUzHAI4xJtlCTgxr8WhS WBnN81vdXJqz3P2IVLkwR kwkCZjAbRrwLY3iD7cDTu nsmrid6pcfcry Iqyor0ulft86hL37H20sA GloSKVmBZF7QTIfRWXydO zzbg1nqP5gLw7+FHogb2l xx2zktTt8OdIr VPXcqhPpdBeaINV6q9QwS f42D8QwuIhox2WiQzp9ps 49rVKpi7Y6bXC1GYljMLU okF7uDBweAiT5 VTHiQuAubZ70wKLeZJyfE i5idRmpzBalOU3bNXCjuq kxWCBcgF9hWPCndADgpTl rNH7iHQTufucp b433PoTrPGH6TLDdtBCzD 6VhwG2uYoAnGCKhHXKpJ3 HwjOKxIFukT967NOssZfE 8SWSipxEcN0Dq HWSraZtiNrB3c6F8Mh8Dx 9XsywbnGHA9PRofNNPcTj Y1FjYyVoB3M1CrUok4QCY prDknWS1mK1Nh EKXhaeqqofnnfVT9KCRxQ BIhmH10lBKyUUjgUk4wu6 Y6b857TKIjZYRfmB35Gn1 udDogMTBwdCBU nL2fcdkje9nlyeslXdAgB HGzOYl6CVu5TPPwpOmvEh ExFSW4MxK6DWJ2hMPmwR1 miOtpfxxxtP9n Oyc+H41nbC3rWNQ4ZOS6z ejbOMDwaxEgJF19EP86K6 RyPjwvdGFibGU+PGRpdiB emGxyTU1kKoKc p1ufa2VbXDucC0YcQHMfC VvlJcs0EMGiLBD0xYH5aF 1zXNHfALzhp1W8wKW0P0R cjhGjcv4tl9ng EBFmVLbaO74rnBWsl0T1G PHghTM3RJHbjPgsZvYaaL 93Oyc+LWFysZvxz6QgUsa nc3lwh0zekQc7 YgLhVPTaqbQnxYztYNE0q 3McQw66Z65uJUyzXJUqBT JuCKOlIPLfkHnixs8niU0 wIi8+PGNvbCB3 wVK3aK9lMUFaPiM2FWjmW 792TiUfcTZmTdmfs4hno7 lxsIo3XqHrHJKkxjFckPe yCVE9a2VfRp51 Z36jDUviEVHpYRSqJLJkJ QRslSxdst5bfG8oYb5+PC 3qm4fdfr17oC91lST+PHR xGZJ4kZhaNPcv EVSywC1wFQxqPcC5ITSaO sJkwA31wQBqHLocHf9qeD ykhAviRM2yTELsntlfl52 9RzVfm4syHPNt pVJcWTrqABW6J71bs1T4B ZAwLSKkQJL4rKW2oR1bzX lnbjogbGVmdDsgdmVydGl lYJzuFFdsW126 IHRvcDsnPlBhdGllbnQgT hHlKSr7T8FbKjb2USPxxB bhVT8rqQRvLIbeUp3azYm qbUweNQ9gOFPp dqvdk854KuByg8exWJYsm JOkJTwnWUS8D72zq1I1CA PdXUVoMUM4eUA2rU9mbDb nbjogbGVmdDsg cvVsjKhbYQhkMNmtO306U HRvcDsnPkJpcnRoIERhdG F8CV98JP82dPOex1D9eFA 6N8YtEZJrblep hbsqoFW5GYUpCCKrbT58W x0dqOaiZh9qPVIpAGJ5HU PkmJRbB8LoaB0eFcTlGUO sVHWtD1EfiCQn ZRaoK695YNetArN3LUFsj pKtE9GfRAAdxSyqEdW0o3 E4Pq0FB1P6CD96DR39mCM oe8L2cNY3A1Eb VOXaaujeruqjaNS7RSSlG OMxaA09Sj6acXhpNk4fTC DkTPO3NJUseDZjY2ImqI6 yOiAjMDAwMDAw L2McnMJfUQyvR569NAaoH yB0DCOdavSiM1PvUJTthT euDfK2l6G9Qg1UVIg7SJ3 4LT65fPIjw9I6 xSJ8D8UhZNJxxwdostndr EV2GWGkNQAbfI28Gz0nzV gpTy8rCZFbUTA4TTLbqJR wD8PxsH3fPxNs BSPnCUAlJ5WgjXStABdgA 199AUqiRdM4QBFpziEiY5 RfZFArtLyrViW1q1A3Zp7 GYIGwDZ91JXT0 sOD8XQ61NX09G5FyXslmi GFibGU+PHRhYmxlIHdpZH RoPScxMDAlJyBzdHlsZT0 oHl4jNZBdYPQj tVzsmZLnYaIgy9hqXIHfV VjyJW1nnAyiP5ZywIE4GF Ccr0x5Oc23Q28jW8QnpXM +MPNkgPG3bUH3 oM3kFgAfNbJ0EIwfG618U iAdpIKrIogaf6yrf3vwzJ i4ZtJ0MBHfxpZyqZprYAN 2v8SkTu16S88x IHdpZHRoPSIxNSUiIHZhb Stxks4yrG0bMx4+PGNvbC E1bLO9dZ1tRdUuOoV6MLu nG995JgDmzGOm Ntrpj6van6fzrBf5AbWyX GTacuUnzQguVTQ6b0VoYd 89W7PyuTajm6BnWsr9bb1 4zEWhz8J2mFD5 Y6KuJNMcrgujaFTyxMmnT C5oUPYvezrsWWYysF2aWX WpM6g1IjHlZyK7QDagI2E alqX8CBInvVKn EAkaKGM7M25vx3M0TDWqR IJiKSA4xGW0oT7slXyajw ogbGVmdDsgdmVydGljYWw zMLyuK452FHLk aQveFUJaqZ1gYICnlVEoz FbfXG0qLTPfnozyKgNMLY REWSwgSEFOTkFIIEdSQUN AGG78SG88hXCy c6C5rBS5Y5BiRRQuzmuga vayeRD7OYRgWAVhyD61oM WiBApnJt8he3I0a797RDB tEBUmcU40Ma1d uXkoMYRacSCBjD7hrniat 2kuhpwlEeMkVJQqFZh3RC e1HWNasQzxXyBwUCB8ItB 9PQR1jHZcdJ2o vMwxlodafP3lQqp+MDMvM DkvMjAwMTwvdGQ+PHRkIH X2mQwpGUjnUJYnqW3aXRI jT2e4UdWaIwJ1 PDzuH2HxLKXfbohcDz90e O3zNlOgGwQ9GHinD4Brag L9XKKtyQTaIZbrUFB4M04 oh3R8VYLlOUYb NPG8rSC9yY2jwEbxxxtge GVmdDsgdmVydGljYWwtYW zkP882FUBhrDkqLmGbJTh tGZEwDO19GV21 lQLaq3B2cBF5W0FqYHYhq bbfbsjdvRE0DLObAVLkzA 05vCUwWOuzHz6xs7X1s07 1ZNUgUHDskU10 Fe2dgJnfYAPeeMERcO2jt vjwp9wsayrzAcKiZQBmOS u4NBt9HKXzoIfkOhQlPGI 9RqM9HMR4cDAm iQ1haRdmhjjzhO6jSic+R vRORTvXZC07KU28bFVms8 R5tUO5H7NyTEYkrskvxzi xrPO9ROOgESEy lS46iZHxOJrdPr4yh0V2g 394AYAuPDRowM18Lx4nuN nyGMNupMOXfE5gwabrx9p vcjogIzAwMDAw MJa8IQr5STYpzRnvPcItU VK6BdU3BPE0rOCeuG4gmR cvxqftiR1bAmn+H0F7Q3C kPjwvdHI+PC90 TLOlTB79gMWnqJUrn3qeh Jm7LgAzPMEtYSI0pGsjGP xqs8EfWSTaQ08seLEbr2Z 6IGNvbGxhcHNl HvFfpMM4oM5zTMkakpxtd 6ebyotuUkqkt2mnlx05fL 72Z70qMCgvNYGzWAWhLOA zEDMisRslsv4x aG5gXq6+ERHsqHM0jAX4r V8cCpLgYfR2CMbxH880Nn MpaAQsGzqgf6ylb2vbaFq 9IjIwJSIgdmFs qPmuYTF0t3QaXm89I21fB HdpZHRoPSIyMCUiIHZhbG jzht1elG1vLt7+MS0vl1g lib95fU89gAA+ ONUkVZD1bZhrQZgdFNAcg G6rOIajAuR5DTXrGzUsgI 05mSSbYTpaVz4itOgwePo lRT5uGMTirbfa s061SqBzv4jvXKEsvPZhZ UboLCF6Z27ij8B7TBPsHT KxKTF1fPX3gK3hdAcjqtk gbGVmdDsgdmVy jImoUEtwSZzvZ963SDIop VxuQuAjrUVlH8jmogZWUW 1lOjwvdGQ+NCCfIVO6dCj rJNfnEFJwmR7x TYZdA6e0ObEaRbU0HWpzL 6BaeoZ8ANAzqVYpJXJynH GYhK1bhfoaa3throgcBqS xPDNmTDt4WLf2 CDVltVrpHaWrCVL3RnL5Q TT4jLVzaS9ogHckmmuviW 9wOyc+RklOOjwvdGQ+PHR lAJE2uNggDNhj VNXrqB2dEPBpH1c5UgEnD cJ0SVqgR0QtzhN0OVAziA VoBLXnoHOGfI4lvjalz7p vcjogIzAwMDAw DMx3ZRe4MRJseKzlLoKcW WC3OlF4MYK0jZKtzI9slV zhxjomcR3bUgk+TVJOOjw vdGQ+PHRkIHN0 dFimIZouMCGxbQ9cJVFiL 1p6SzClNvL9FRqcE8Onzp U5WGGbbSYxUKJggHAIpM8 dqyull2twejno SwJpQMMvHDk7UEf5GYKpo YvnShSrUUJ1CoA6TQK9yX IclW4fsIxhhokfgF7hHif +DBO7FTA4DP34 PS88C6TeWhdjcWBrrQC+P HRhYmxlIHdpZHRoPScxMD BxUeWqmBzpWB3kVi8iQYS yLWNvbGxhcHNl OiB (more content not included)... [facility] C Throaton 07-31-2020 C Throat Ordered by Discern. Normal throat regi isolated No pathogens isolated [facility] Comment on above: Performed By: #### [id number] ####[facility] (DEFAULT)[address] [place] [address] ED Clinical Summaryon 2020 ED Clinical Summary [facility] ? [facility] Care [address] [place] [address] Clinical Summary PERSON INFORMATION Name: LEIGH MONTOYA Age: 20 Years Sex: FEMALE : 2000 MRN: Acct#: Visit Reason: UC - Sore Throat; THROAT PAIN Arrival: 07/29/2020 09:44:22 Discharge: 07/29/2020 10:23:00 LOS: 000 00:39 Check In: 07/29/2020 09:44:22 Checkout: 07/29/2020 10:23:00 Address: [address] [place] [address] PCP: Flex Wang DO PROVIDER INFORMATION Provider [...] Negative . Impression and Plan Diagnosis Pharyngitis (BNK64-EE J02.9, Discharge, Medical) Plan Condition: Stable. Disposition: Discharged: Time 07/29/2020 10:17:00 (more content not included)... [facility] ED Note - Provideron 021 ED [...] Negative . Impression and Plan Diagnosis Pharyngitis (YNO92-BO J02.9, Discharge, Medical) Plan Condition: Stable. Disposition: Discharged: Time 07/29/2020 10:17:00, to home. Patient was given the following educational materials: Pharyngitis, Lqzd-cu-Twxl, Pharyngitis, Erma-wt-Vcab. Follow up with: Flex Wang Within 2 [...] 07/29/2020 10:20 EST] Patricia Meeks PA-C [facility] ED Patient Summaryon 021 ED Patient Summary [facility] [address] [place], [place] [id number] PATIENT DISCHARGE INSTRUCTIONS Patient Information Name: LEIGH MONTOYA Age: 20 Years Date of : 2000 [facility]: [id number] Reason For Visit: UC - Sore Throat; THROAT PAIN Arrival Time: 07/29/2020 09:44:22 Primary Care Physician: Flex Wang DO Attending Physician: Patricia Meeks PA-C Comment: Patient Education With: Address: When: Flex Wang [address] [facility], [address] [place] [phone] Business (1) Within 2 to 4 days [...] Follow these instructions at home: ? Take pecr-ghs-oxxqyvt and prescription medicines only as told by [...] 10/22/2008 Document Revised: 04/18/2018 Document Reviewed: 06/11/2017 [employer] Patient Education ? 2020 [employer]. Medication Information: The exam and treatment you received today in the [facility] Emergency Department were for an urgent problem and are not intended as complete care. It is important for you to follow up with a doctor, nurse practitioner, or physician?s personal banking assistant for ongoing care. If your symptoms [...] so we can reach you if necessary. [facility] Emergency [facility] has provided you with a complete list of medications post discharge. Please inform your ecg technician/provider of your visit and for further instruction [...] Throat (C11 (more content not included)... [facility] Strep Aon 07-29-2020 Strep procedure control Pass [facility] Comment on above: Performed By: #### [id number] ####[facility] (DEFAULT)[address] [place] [id number] Streptococcus A Negative Normal [facility] Comment on above: Performed By: #### [id number] ####[facility] (DEFAULT)[address] [place] [id number] Urgent Care [facility] 021 Urgent Care Record [facility] ? Urgent Care [address] [place] [address] PATIENT DISCHARGE INSTRUCTIONS Patient Information Name: LEIGH MONTOYA Age: 20 Years Date of : 2000 Reason For Visit: UC - Sore Throat; THROAT PAIN Arrival Time: 07/29/2020 09:44:22 Primary Care Physician: Flex Wang DO Attending Physician: Patricia Meeks PA-C Comment: Visit Diagnosis: Diagnoses This Visit Pharyngitis (J02.9) UC - Sore Throat ([id number]) If you received any narcotics, sedation, or [...] Address: When: Flex Wang [address] [facility], [address] [place] [phone] Business (1) Within 2 to 4 days [...] treatment you received today in the [facility] were for an urgent problem and are not intended as complete care. It is important for you to follow up with a doctor, nurse practitioner, or physician?s personal banking assistant for ongoing care. If your symptoms [...] so we can reach you if necessary. [facility] has provided you with a complete list of medications post discharge. Please inform your ecg technician/provider of your visit and for further instruction [...] Follow these instructions at home: ? Take snyz-kpd-asicdtd and prescription medicines only as told by [...] help righ (more content not included)... [facility] Coding Summaryon 06-27-2020 Coding Summary CODING DATE: 06/27/2020 [facility] [place] STATUS: Home PAYOR: Commercial Insurance ADMIT DX: [...] Nano Padilla Date Saved: 06/27/2020 12:37 pm [facility] ED Clinical Summaryon 2020 ED Clinical Summary [facility] Care [address] [place] [id number] Clinical Summary PERSON INFORMATION Name: LEIGH MONTOYA Age: 19 Years Sex: FEMALE : 2000 MRN: Acct#: Visit Reason: UC - Ear Pain; UC - Ear Pain; RIGHT EAR PAIN Arrival: 06/18/2020 15:00:59 Discharge: 06/18/2020 15:27:00 LOS: 000 00:27 Check In: 06/18/2020 15:00:59 Checkout: 06/18/2020 15:27:00 Address: [address] [place], [place] [id number] PCP: Flex Wang DO PROVIDER INFORMATION Provider Role Assigned Unassigned Monica Dunn WATER [employer]ING STATION ENGINEER Nurse 06/18/2020 15:03:15 Alessandro PA, Marv ED PA 06/18/2020 15:03:24 VITALS INFORMATION Vital Sign Triage Latest Temperature Tympanic Temperature Temporal Artery Pulse Rate O2 Sat 98 % 98 % Respiratory Rate Blood Pressure /78 mmHg /78 mmHg MEDICAL INFORMATION Medications Given: Allergy Information: sulfamethoxazole; ibuprofen PHYSICIAN DOCUMENTATION DISCHARGE INFORMATION: Discharge Disposition: Home Discharge Location: Home PATIENT EDUCATION INFORMATION Instructions: Otitis Media, Adult, Yztb-du-Lqnp Follow-Up: With: Address: When: Flex Wang [address] [facility] [address] [address] Business (1) Comments: Begin on the amoxicillin-clavulana te antibiotic take every 12 hours for the next 10 days Follow-up with your primary care physician in 3-5 days for reevaluation, sooner if any worsening symptoms DIAGNOSIS: Otitis media, right Patient Understands: Yes - Patient/family/caregi nela verbalizes understanding of instructions given Comment: [facility] ED Patient Summaryon 021 ED Patient Summary [facility] ? [facility] Care [address] [place] [address] PATIENT DISCHARGE INSTRUCTIONS Patient Information Name: LEIGH MONTOYA Age: 19 Years Date of : 2000 [facility]: [id number] Reason For Visit: UC - Ear Pain; UC - Ear Pain; RIGHT EAR PAIN Arrival Time: 06/18/2020 15:00:59 Primary Care Physician: Flex Wang DO Attending Physician: Marv Shannon Comment: Patient Education With: Address: When: Flex Wang [address] [facility], [address] [place] [phone] Business (1) Comments: Begin on the amoxicillin-clavulana [...] Follow these instructions at home: ? Take lczx-ekw-qigvank and prescription medicines only as told by [...] 10/22/2008 Document Revised: 04/18/2018 Document Reviewed: 05/27/2017 [employer] Patient Education ? 2020 [employer]. Medication Information: The exam and treatment you received today in the [facility] Emergency Department were for an urgent problem and are not intended as complete care. It is important for you to follow up with a doctor, nurse practitioner, or physician?s personal banking assistant for ongoing care. If your symptoms [...] so we can reach you if necessary. [facility] has provided you with a complete list of medications post discharge. Please inform your ecg technician/provider of your visit and for further instruction on these medications. Any specific questions regarding your chronic medications and dosages should be discussed with your primary care physician(s) and/or pharmacist. New Medications [facility], [address] [place] [phone], [phone] amoxicillin-clavulana te (Augmentin 500 mg-125 mg oral [...] media, right (H66.91) UC - Ear Pain ([id number]) UC - Ear Pain ([id number]) If you received any narcotics, sedation, or any other medication that causes drowsiness for the next 24 hours, unless otherwise directed: ? Do not drive a car. ? Do not operate machinery such as power tools, lawn mowers, drills, sewing machines, or stoves ? Avoid alcoholic beverages and drugs for allergies, n (more content not included)... [facility] Note- Provideron 06-18-2020 Urgent [...] Impression and Plan Diagnosis Otitis media, right (YAW21-CT H66.91, Discharge, Medical) Plan Prescriptions: [facility] prescriptions Pharmacy: Augmentin 500 mg-125 mg oral tablet (Prescribe): 1 tab(s), PO, q12hr, for 10 day(s), 20 tab(s), 0 Refill(s). Patient was given the following educational materials: Otitis Media, Adult, Ucqk-gc-Ywgv. Follow up with: Flex Wang Begin on the amoxicillin-clavulana te antibiotic take every 12 hours for the next 10 days Follow-up with your primary care physician in 3-5 days for reevaluation, sooner if any worsening symptoms. Counseled: Patient, Regarding diagnosis, Regarding diagnostic results, Regarding treatment plan, Regarding prescription, Patient indicated understanding of instructions. [facility] Recordon 01-30-2 021 Urgent Care Record [facility] ? Urgent Care [address] [facility] [place] [address] PATIENT DISCHARGE INSTRUCTIONS Patient Information Name: LEIGH MONTOYA Age: 19 Years Date of : 2000 Reason For Visit: UC - Ear Pain; UC - Ear Pain; RIGHT EAR PAIN Arrival Time: 06/18/2020 15:00:59 Primary Care Physician: Flex Wang DO Attending Physician: Marv Shannon Comment: Visit Diagnosis: Diagnoses This Visit Otitis media, right (H66.91) UC - Ear Pain ([id number]) UC - Ear Pain ([id number]) If you received any narcotics, sedation, or [...] Address: When: Flex Wang [address] [facility], [place] [address] Business (1) Comments: Begin on the amoxicillin-clavulana te antibiotic take every 12 hours for the next 10 days Follow-up with your primary care physician in 3-5 days for reevaluation, sooner if any worsening symptoms Medication Information: The exam and treatment you received today in the [facility] were for an urgent problem and are not intended as complete care. It is important for you to follow up with a doctor, nurse practitioner, or physician?s personal banking assistant for ongoing care. If your symptoms [...] so we can reach you if necessary. [facility] has provided you with a complete list of medications post discharge. Please inform your ecg technician/provider of your visit and for further instruction on these medications. Any specific questions regarding your chronic medications and dosages should be discussed with your primary care physician(s) and/or pharmacist. New Medications [facility], [address] [place], [place] [id number], [phone] amoxicillin-clavulana te (Augmentin 500 mg-125 mg oral [...] Follow these instructions at home: ? Take pzcr-jgn-mvsmcvi and prescription medicines only as told by [...] (paralyzed). ? You (more content not included)... [facility] Consent Formson 04-28-2020 Consent Forms [id number] .[facility] Orderson 04-28-2020 Provider Orders [id number] .[facility] Coding Summaryon 04-25-2020 Coding Summary CODING DATE: 04/25/2020 [facility] [place] STATUS: Home PAYOR: Commercial Insurance ADMIT DX: [...] Nano Padilla Date Saved: 04/25/2020 02:38 pm [facility] .QC Respiratory Panel 2.1 (B ioFire)on 04-22-2020 Internal Control-Resp Panel 2.1(BioFire) Pass [facility] Comment on above: Order Comment: Order ed by Holley.[[id number]] Performed By: #### 6 [id number], [id number] ####[facility] (DEFAULT)[address] [place] [address] Respiratory Panel 2.1 (BioFi re)on 04-22-2020 Adenovirus -BioFire Not detected Normal Not Detected [facility] Comment on above: Performed By: #### 6 [id number], [id number] ####[facility] (DEFAULT)[address] [place] [address] Bordetella parapertussis -BioFire Not detected Normal Not Detected [facility] Comment on above: Performed By: #### 6 [id number], [id number] ####[facility] (DEFAULT)[address] [place] [address] Bordetella pertussis -BioFire Not detected Normal Not Detected [facility] Comment on above: Performed By: #### 6 [id number], [id number] ####[facility] (DEFAULT)[address] [place] [address] Chlamydia pneumoniae -BioFire Not detected Normal Not Detected [facility] Comment on above: Performed By: #### 6 [id number], [id number] ####[facility] (DEFAULT)[address] [place] [address] Coronavirus 229E (Not COVID-19) -BioFire Not detected Normal Not Detected [facility] Comment on above: Performed By: #### 6 [id number], [id number] ####[facility] (DEFAULT)[address] [place] [address]265 Coronavirus HKU1 (Not COVID-19) -BioFire Not detected Normal Not Detected [facility] Comment on above: Performed By: #### 6 [id number], [id number] ####[facility] (DEFAULT)[address] [place] [address]85 Coronavirus NL63 (Not COVID-19) -BioFire Not detected Normal Not Detected [facility] Comment on above: Performed By: #### 6 [id number], [id number] ####[facility] (DEFAULT)[address] [place] [address]171 Coronavirus OC43 (Not COVID-19) -BioFire Not detected Normal Not Detected [facility] Comment on above: Performed By: #### 6 [id number], [id number] ####[facility] (DEFAULT)[address] [place] [address] Employed in healthcare? No Invalid Interpretation Code [facility] Comment on above: Performed By: #### 6 [id number], [id number] ####[facility] (DEFAULT)[address] [place] [address] Group care resident? No Invalid Interpretation Code [facility] Comment on above: Performed By: #### 6 [id number], [id number] ####[facility] (DEFAULT)[address] [place] [address] Human Metapneumovirus -BioFire Not detected Normal Not Detected [facility] Comment on above: Performed By: #### 6 [id number], [id number] ####[facility] (DEFAULT)[address] [place] [address]690 Human Rhinovirus/Enterovir us -BioFire Not detected Normal Not Detected [facility] Comment on above: Performed By: #### 6 [id number], [id number] ####[facility] (DEFAULT)[address] [place] [address] 45149 In ICU? No Invalid Interpretation Code [facility] Comment on above: Performed By: #### 6 [id number], [id number] ####[facility] (DEFAULT)[address] [place] [address]336 Influenza A (no subtype) -BioFire Not detected Normal Not Detected [facility] Comment on above: Performed By: #### 6 [id number], [id number] ####[facility] (DEFAULT)[address] [place] [address]3685 Influenza A -BioFire Not detected Normal Not Detected [facility] Comment on above: Performed By: #### 6 [id number], [id number] ####[facility] (DEFAULT)[address] [place] [address] 97313 Influenza A H1 -BioFire Not detected Normal Not Detected [facility] Comment on above: Performed By: #### 6 [id number], [id number] ####[facility] (DEFAULT)[address] [place] [address] 89057 Influenza A H1-2009 -BioFire Not detected Normal Not Detected [facility] Comment on above: Performed By: #### 6 [id number], [id number] ####[facility] (DEFAULT)[address] [place] [address] 03899 Influenza A H3 -BioFire Not detected Normal Not Detected [facility] Comment on above: Performed By: #### 6 [id number], [id number] ####[facility] (DEFAULT)[address] [place] [address] Influenza B -BioFire Not detected Normal Not Detected [facility] Comment on above: Performed By: #### 6 [id number], [id number] ####[facility] (DEFAULT)[address] [place] [address] Mycoplasma pneumoniae -BioFire Not detected Normal Not Detected [facility] Comment on above: Performed By: #### 6 [id number], [id number] ####[facility] (DEFAULT)[address] [place] [address] Parainfluenza Virus 1 -BioFire Not detected Normal Not Detected [facility] Comment on above: Performed By: #### 6 [id number], [id number] ####[facility] (DEFAULT)[address] [place] [address] Parainfluenza Virus 2 -BioFire Not detected Normal Not Detected [facility] Comment on above: Performed By: #### 6 [id number], [id number] ####[facility] (DEFAULT)[address] [place] [address] 81019 Parainfluenza Virus 3 -BioFire Not detected Normal Not Detected [facility] Comment on above: Performed By: #### 6 [id number], [id number] ####[facility] (DEFAULT)[address] [place] [address] 18412 Parainfluenza Virus 4 -BioFire Not detected Normal Not Detected [facility] Comment on above: Performed By: #### 6 [id number], [id number] ####[facility] (DEFAULT)[address] [place] [address] status? Not Invalid Interpretation Code [facility] Comment on above: Performed By: #### 6 [id number], [id number] ####[facility] (DEFAULT)[address] [place] [address] Respiratory Syncytial Virus -BioFire Not detected Normal Not Detected [facility] Comment on above: Performed By: #### 6 [id number], [id number] ####[facility] (DEFAULT)[address] [place] [address] SARS-CoV-2 (COVID-19) RNA OZZIE+probe Ql (Unsp spec) Not detected Normal Not Detected [facility] Comment on above: Performed By: #### 6 [id number], [id number] ####[facility] (DEFAULT)[address] [place] [address] SARS-CoV-2 (COVID-19) RNA OZZIE+probe Ql (Unsp spec) No Invalid Interpretation Code [facility] Comment on above: Performed By: #### 6 [id number], [id number] ####[facility] (DEFAULT)[address] [place] [address] Symptomatic as defined by CDC? No Invalid Interpretation Code [facility] Comment on above: Performed By: #### 6 [id number], [id number] ####[facility] (DEFAULT)[address] [place] [address] Vital Signs Date Time Vital Sign Value Performing Clinician Facility 12-06-2021 16:30-0400 Body height 160.02 cm Ezequiel Melo Other [facility] 12-06-2021 16:30-0400 Body mass index (BMI) [Ratio] 41.62 kg/m2 Ezequiel Melo Other [facility] 12-06-2021 16:30-0400 Body weight 106.6 kg Ezequiel Melo Other [facility] 10-11-2021 14:45-0400 Body height 160.02 cm Ezequiel Dijessie Other [facility] 10-11-2021 14:45-0400 Body mass index (BMI) [Ratio] 41.98 kg/m2 Ezequiel Adamsjessie Other [facility] 10-11-2021 14:45-0400 Body weight 107.5 kg Ezequiel Melo Other [facility] 10-11-2021 14:45-0400 Diastolic blood pressure 79 mm[Hg] Ezequiel Melo Other [facility] Other 10-11-2021 14:45-0400 Systolic blood pressure 128 mm[Hg] Ezequiel Melo Other [facility] Other Encounters Encounter Date Encounter Type Care [...] Start: 08-29-2022 End: 08-29-[address] MIRANDA [facility] Facility:[facility]1 Start: 01-12-2022 End: 01-16-[address] MIRANDA [facility] Facility:[facility]1 Start: 12-06-2021 End: 12-06-2021 ambulatory Ezequiel Melo Other [facility] Start: 12-06-2021 Patient encounter procedure Ezequiel Melo [facility] Start: 10-11-2021 End: 10-11-2021 ambulatory Ezequiel Melo Other [facility] Start: 10-11-2021 [facility] visit new patient Ezequiel Melo [facility] Payers Date Payer Category Payer Unknown [id number] 2000 Unknown [id number] 2.16.84 [id number] 2000 Unknown [id number] 2.16.84 [id number] 2000 Unknown [id number] 2.16.84 0.1.929064.3.579.2.9 2000 Unknown [id number] 2.16.84 0.1.334900.3.579.2.1259 2000 Unknown [id number] 2.16.84 0.1.532358.3.579.2.9 2000 Unknown [id number] 2.16.84 0.1.235281.3.579.2.9 2000 Unknown [id number] 2.16.84 0.1.160579.3.579.2.9 2000 Unknown [id number] 2.16.84 0.1.764963.3.579.2.1259 2000 Unknown [id number] 2.16.84 0.1.105162.3.579.2.9 2000 Unknown [id number] 2.16.84 [id number] 1959 Unknown [id number] Medicaid [id number] . [id number] Social History Date Type Detail Facility Sex Assigned At [facility] Other Evaluation note 12-06-2021 Note Date & Type Note Facility 12-06-2021 Evaluation note Encounter Date Diagnosis Assessment Notes Nov, Dyspepsia (ICD-10 - K30) patient states does have some bloating in the left center she does have pain noted. patient is advised that we can start levsin and refer to veterans service representative for food testing. [facility] Other Evaluation note 10-11-2021 Note Date & Type Note Facility 10-11-2021 Evaluation note Encounter Date Diagnosis Assessment Notes September, Bloating (ICD-10 - R14.0) September, Dyspepsia (ICD-10 - K30) September, Abdominal pain (ICD-10 - R10.9) [facility] Other Clinical Note 04-05-2021 Note Date & [...] This may take several hours. ? Take hifp-vro-uhsqndi and prescription medicines only as told by your health care provider. ? When you can walk without pain, wear supportive shoes that have stiff soles. Do not wear flip-flops, and do not walk barefoot. ? Keep all follow-up visits as told by your health care provider. This is important. Contact a health care provide (more content not included)... [facility] Clinical Note 07-29-2020 Note Date & Type Note Facility 07-29-2020 Note Patient Education Ma terials Follows:Disease Pharyngitis Pharyngitis is a sore throat (pharynx). This is when there is redness, pain, and swelling in your throat. Most of the time, this condition gets better on its own. In some cases, you may need medicine. Follow these instructions at home: ? Take eelk-kwn-jegtqxd and prescription medicines only as told by [...] Reviewed: 06/11/2017 Else[employer] Patient Education ? 2019 [employer]. [facility] Clinical Note 06-18-2020 Note Date & Type Note Facility 06-18-2020 Note Patient Education Ma terials Follows: Otitis Media, Adult Otitis media means that the middle ear is red and swollen (inflamed) and full of fluid. The condition usually goes away on its own. Follow these instructions at home: ? Take fxwn-drv-brjnsez and prescription medicines only as told by [...] 10/22/2008 Document Revised: 04/18/2018 Document Reviewed: 05/27/2017 [employer] Patient Education ? 2019 [employer]. [facility] Clinical Note 04-22-2020 Note Date & Type Note Facility 04-22-2020 Note Nasal swab performed without complication. Patient tolerated well. Education given. Patient verbalized understanding. [Electronically Signed on: 04/22/2020 15:05 EST] Miri Nuñez RN [Verified on: 04/22/2020 15:05 EST] Miri Nuñez RN [facility] History general Narrative - Reported Note Date & Type Note Facility History general Narrative - Reported Type Medical History PCOS Medical History Endometriosis Surgical History laparoscopy - endometriosis [facility] Other Reason for referral (narrative) Note Date [...] is able to get in before this. [facility] Other Reason for visit Narrative Note Date & Type Note Facility Reason for visit Narrative PATIENT HERE AT THE REQUEST OF DR. VERGARA FOR EVALUATION & TREATMENT OF BLOATING [facility] Other Reason for visit Narrative Note Date [...] of the side effects that were listed. [facility] Other Summary Purpose Family History No Family History Records FoundNo Family History Records FoundNo Family History Records FoundNo Family History Records Found Advance Directives No Advanced Directives Records FoundNo Advanced Directives Records FoundNo Advanced Directives Records FoundNo Advanced Directives Records Found Additional Source Comments INFORMATION SOURCE (unrecogn ized section and content) DATE CREATED AUTHOR 04/21/2021 [facility] DATE CREATED AUTHOR AUTHOR'S ORGANIZ ATION 11/08/2021 [facility] DATE CREATED AUTHOR AUTHOR'S ORGANIZ ATION 09/06/2022 [facility] DATE CREATED AUTHOR AUTHOR'S ORGANIZ ATION 01/31/2024 [facility] EPIC FOR RECORDS PERTAINING [...] BE BASED ON THE PRIMARY CLINICAL RECORDS. [facility], Part of [employer] [facility]. provides no warranty or guarantee of the accuracy or completeness of information in this document.
--- OUTSIDE RECORDS SUMMARY | 2024-02-17 18:42 | XMS_ITS | CCD ---
Author Organization [facility] Care Team Providers Care Dry Janitor Name Role Phone Ezequiel Melo Unavailable [facility] [place]DA Primary Care Unavailable JAI ., [...] Reaction(s) Facility (2 sources) Sulfacetamide Drug Allergy [facility] Categorical Other (1 source) Sulfonamides (Antibiotic) Drug allergy (disorder) [facility] Repository Medications Current Medications Medication Drug [...] 21 to 29on 09-06-2022 . . Normal [facility] Comment on above: Performed By: #### 4 [id number] #### [facility] [address] [place] [address] Dr. Dat Wesley Age Gdln ACOG Testing 21- Normal [facility] Comment on above: Performed By: #### 4 [id number] #### [facility] [address] [place] [address] Dr. Dat Wesley DIAGNOSIS: Comment Normal [facility] Comment on above: Result Comment: NEGA TIVE FOR INTRAEPITHELIAL LESION OR MALIGNANCY. Performed By: #### 4 [id number] #### [facility] [address] [place] [address] Dr. Dat Wesley Methodology: Comment Normal [facility] Comment on above: Result Comment: This liquid based ThinPrep(R) pap test was screened with the use of an image guided system. Performed By: #### 4 [id number] #### [facility] [address] [place] [address] Dr. Dat Wesley Note: Comment Normal [facility] Comment on above: Result Comment: The Pap smear is a screening test designed to aid in the detection of premalignant and malignant conditions of the uterine cervix. It is not a diagnostic procedure and should not be used as the sole means of detecting cervical cancer. Both false-positive and false-negative reports do occur. . Performed By: #### 4 [id number] #### [facility] [address] [place] [address] Dr. Dat Wesley Performed by: Comment Normal [facility] Comment on above: Result Comment: Singh Sanders Solvent Recoverer (ASCP) Performed By: #### 4 [id number] #### [facility] [address] [place] [address] Dr. Dat Wesley Reflex Criteria: Comment Normal [facility] Comment on above: Result Comment: The HPV DNA reflex criteria were not met with this specimen result therefore, no HPV testing was performed. . Performed By: #### 4 [id number] #### [facility] [address] [place] [address] Dr. Dat Wesley Specimen adequacy: Comment Normal [facility] Comment on above: Result Comment: Sati sfactory for evaluation. Endocervical and/or squamous metaplastic cells (endocervical component) are present. Performed By: #### 4 [id number] #### [facility] [address] [place] [address] Dr. Dat Wesley HCG,Urineon 11-03-2021 Beta HCG ( test) Ql (U) Negative Normal [facility] Comment on above: Result Comment: PERF ORMED BY: [address] [place] [id number] PATHOLOGIST HEAD ANIMAL TRAINER SULTANA PETE M.D. Performed By: #### U HCG #### [place] [id number] [facility] 11-03-2021 L - -------- Specimen: [id number] Received: 11/03/21 Status: AYDIN Johnson Num: [id number] Spec Type: Surgical Subm Dr: Ezequiel Melo MD Tissues: A Small Intestine - Biopsy/Polyp (SMALL BOWEL) Procedures: HE Stain/2, Gross/Micro L4 -------- Patient Age/Sex Location Account Attending Physician -------- Leigh Singh / [id number] Ezequiel Melo MD -------- SPEC NUM: [id number] RECD: 11/03/21 STATUS: AYDIN TRANG NUM: [id number] PAPI: 11/03/[address] [facility] [address]: Ezequiel Melo MD ENTERED: 11/03/[address] [facility] [address]: SPEC TYPE: Surgical DEPT: S [...] is performed. This case is interpreted at [facility], [place], [place] -------- Specimen: Received: 11/03/21 Status: AYDIN Johnson Num: [id number] Spec Type: Surgical Subm Dr: Ezequiel Melo MD Tissues: A Small Intestine - Biopsy/Polyp (SMALL BOWEL) Procedures: HE Stain/2, Gross/Micro L4 -------- Patient: Leigh Singh [id number] (Continued) -------- Specimen: [id number] Received: 11/03/21 (Continued) Signed (signature on file) Gabe Ellis MD 11/06/21 1703 -------- Specimen: Received: 11/03/21 Status: RAFAELChino Johnson Num: [id number] Spec Type: Surgical Subm Dr: Ezequiel Melo MD Tissues: A Small Intestine - Biopsy/Polyp (SMALL BOWEL) Procedures: HE Stain/2, Gross/Micro L4 -------- Patient: JennyrodriguezLeigh villatoro [id number] (Continued) -------- Specimen: Received: 11/03/21 (Continued) CPT Codes 27003 -------- -------- Specimen: Received: 11/03/21 Status: AYDIN Johnson Num: [id number] Spec Type: Surgical Subm Dr: Ezequiel Melo MD Tissues: A Small Intestine - Biopsy/Polyp (SMALL BOWEL) Procedures: HE Stain/2, Gross/Micro L4 -------- Patient: JuanJaclyn villatorolauren Craig [id number] (Continued) -------- Signed (signature on file) Gabe Ellis MD 11/06/21 1703 Normal [facility] SARS-CoV-2 (COVID-19) RNA OZZIE+probe Ql (Unsp spec) Negative Normal Negative [facility] Comment on above: Order Comment: Healt hcare Worker?: N Result Comment: Testing for SARS-CoV-2 by RT-PCR This test was developed and its performance characteristics determined by [employer] and validated at the [facility]. This test has not been [...] is terminated or revoked sooner. PERFORMED BY: [place] [address] PATHOLOGIST HEAD ANIMAL TRAINER SULTANA PETE M.D. Performed By: #### C OVID 19 [facility] #### [address] Coding Summaryon 04-19-2021 Coding Summary HTMLBase 64 BbhkogwxYHf3jRp+PGhlY WQ+KP8RSKTsY84sbQScyC 6YB6cIRJ8RNZCIWKBHHC0 MER5qxLA0JLugG7LgysKv QossxRJdSX58TAt3ZOG0r ZhuGQqmwE1zcQEhJ5i5Ha EiUM41vO16FOcaLKBhScQ 3LjZpbjsgbWFy B4ffNkEfmDZrGcy+PHRhY mxlIHdpZHRoPScxMDAlJy EilBljWD8vNo9zQNBjDYK vbGxhcHNlOiBj c6qiNHTsCYqpXR2mqQumP 5TqvCF8DKIsq0t1Om19qE I+CVTqCUA2oWuvHXqdo34 7DbDpn5huJMP5 xMMlDJslFUF8I37me3M9I XNnQPRaGMU9kOY3wA0ubR dcvvhlR4GglLKoWlS1YQH 9iDMxmF6omMkh hhwodK4iVqo+O19IKQ7YO CCVXY8EEud6M8NaMfotdW I+SS09HIEaUH26oERuaKI mw5amtRm6WiSq ZFJeNIT7lUthQTtaz3CkV DGcQ16yqPHdr5B2NBEuxE hpjSUeJeGwjQC0bZ4pYIn rqftui6clcsvd Kbcuv8retk29vH47F10dG EhvLXOzVAS9DSOpHICzrL ohgg1akO3pFu1+QOblh6t cd0cefFq8CbZy IQMtniXegSblQWH7r2YgU e74N7TtxPigf3CyLcg7ao 01aPEoz0E9yXQ2LRfaEKY qwP2aXGaaOtS0 YVIgXlYihM94nPOgPYsnM f9mpRsbpHwlXW0lOFRsfu oaPFVwiB5oNJMeaBEhdOx nYW9cTXJjwwex a704BgNfAXM6KXHrsDOxX 0YkaE7bVuPfUJEnMIThR3 AxjRBtKAafE896USueBeV 9IQXqahQaA9Nr UIBcbTuuSkA6m8E6Un8Tf 8FjikivCVA4ZRjrTLJqYs KrEqXsBuK2G7HyNtk0VAJ fkPpeDT3qH8Gq LWUfffcayoiiqKM2VOGbH FTxqU57eBAsQSbaEu7ia7 W2z852WVAiOWHhfI41Gq7 udDogMTBwdCBU uT4bbihkl6uhwolgPwEbD ENaGAn6LHe3IBYbgRfkOq UkTFE5InB8UEQ9jDEngO1 uoCajiqmodY1b Oyc+J36wgU9jGWM2JZG6a ytdBEHhzqBuMQ94KX32A1 RyPjwvdGFibGU+PGRpdiB lpPdrVR8qMsJs m9kbl8ArMGlbJ6XdBHAiA MnpFjj0GMJzLCH4hVP3qF 7gTGGcOEiet4Q1bCV0A3G dpmYckp0ff7md MGReMVxaM29nmJVeg6Q5U PQcuDR2MARmhMleCfFglS 93Oyc+TNPcjKczt9ImFra xf6kuo6mevDe1 ZrJkYWJnjhZjxTgaQFQ3r 3JrYe85D60aPCouHMVsHO JaSOPgEBYmlOctxi4cwS7 wIi8+PGNvbCB3 hXA5wK8vGMYdKpH9HVffI 608TqWwqBCmEnpng0lqe7 dczIa6IwPrVEJefeBptIg rDDA7w8TbQl35 O52vSXvwYNPuGTHyFPZwQ LLmpIqmnl9fqG5mUw1+PC 7av4qhuk31dA82lRA+PHR qLBZ7cXlyUKvv BSMytG6dQDebTwZ9KMCmW iXdbR00yGKeRNmyIl4eaP jrbSztIS2bEZPbvibpk35 9ElSck1xsTRGb oVGnPTmlQQU7E98uv5Z2G EQcIYAeDZQ1zKX6cJ5xtX lnbjogbGVmdDsgdmVydGl pIDezPAiqQ427 IHRvcDsnPlBhdGllbnQgT wOnVJo8J3MnPdb9SPWzoQ mzXK3dlETeQXbyNh0fiZb axMovHQ2aVCPs apcpj398BiMqe8dlUTWrc VBeURltEXH9J21md7E7VR KxOVUjYJU3bLH6iG2yaRf nbjogbGVmdDsg vhOviNtiUWluQWzeL471C HRvcDsnPkJpcnRoIERhdG L6EA09YM31kWMjk4X3iDY 8K4UlSOVwpceo pbqnwAQ0YQQtTPNhwD42V j8zkVpbYo7kRPTgLQG3CX YidDZqC2YleT9pCiQgFDM hGHIhP5MqoTNw WDojW645UAprJaY1ZDPgx dVpD9OvVOMhmSmiEaC0k5 I6Vl8HL2S0KI39VE45mWA iv4U0gGJ9Q0Bq QCZbavieivxecDN7SOJqA EZqeB85We9zlLuaIq6yTI UaZKP3JZFrjSCmM3ShqJ2 yOiAjMDAwMDAw I3DndQHwKUjsZ252BJrlT lV1DXJqgaOhQ5CkOGEoyM tyWjO6d7V3Et2PTPe5FY8 5SY47lKHhh7Y4 vBM6V1GoBHJtguasbpvjb EM8VMSkQANbjI94Ni9puG lpXz4gBINzJIW9QJUgsDF bS5FaeB7aXxSz ZIJaCRGpL6XkuLTePPefK 964AIspFbV0TNYfnjLgY3 WzYFShoPeyGrH2m4F4To4 NHCZiOS64SPU3 eZF9OY60BK89U7IfWrvmn GFibGU+PHRhYmxlIHdpZH RoPScxMDAlJyBzdHlsZT0 sYj2sJKEmWAYj bVbegEGdHkOgn4lmRGXgG TcaHO2zhTryE9BbvJM5MA Gbd6x8Dw97L16sK2JfmUC +IBHzsEM1bBX7 qR7hCpUtEqO6PNbnN916F yVdwMYtEinmg7wzf0gsyA j1ApF6PKThavRylBpjJTJ 2l2GuKn73Z61a IHdpZHRoPSIxNSUiIHZhb Olhex8hwU3dQz4+PGNvbC D4aBB0tW6wDbAoLtK0FRi mM405RlIhaGHm Ykgzc6uel0dalGj6WmJwS YVfukIbaVrgHNM5t7EgYj 10E7LfsTael3KxFnx3tk0 9lYKnl5C3oBH6 S2UcAUQnnhbgeDTodNeeR V9eXNWbrbmtQMFzxW8qKB XkK7k0WsElRsS9CMuzF1P rimC2OICgcTAx SJfkMRD4S98br0C0TEBiT MXkPIO8kWS9eC6ieXdufj ogbGVmdDsgdmVydGljYWw pURptB762XSNv rDsyDEPsqY8vVSQpgFUxy AfcDK9pSFTrextpLoAKIY REWSwgSEFOTkFIIEdSQUN XSH29MQ95sJRb k1X5oVO9C1SfZEFlfqmhe dqheZJ4NPSjBWNpuZ90qB LnETusVe5bk2P2u461HXP cLQXajA75Xa1n hQwoOWBxzVZLvU7dbpsta 0ijqcdnGlJmSYKoYBn1EN u6VGWblXbhAqYnVQI9SlU 2OIU7hZLlwM6e cIpkqgjkiK1aLkv+MDMvM DkvMjAwMTwvdGQ+PHRkIH G2dCycPErpZTQaiG0wOXO sR9j6KzAnFhQ1 ZSohC0FuNWMsqbsgQo36i R4mVqDlFhY6KDtnN1Axxm E4WNUcqDAfXJqlVPO4E96 zj9T6LLNrDOBe OHT3wBD7vA9euZaczqtjt GVmdDsgdmVydGljYWwtYW inT771EKYmiZxmRmYiXSz dSKSsVK79OP53 fOLow0C6cXK2G4XvCHVyc imspshfdQF0RAXrNSXzcE 57gOPoZPzxCh3sn0Y4w89 8HVVdWZHktM99 Dp6bxBnbHNYawPMHxJ5vq jhmt1tufmirInJgJIXdNG r5QAs4KDJglQnmLqYxKHQ 2ByS7KNG2vZCi bI2uzHaehbrdwO8dOuw+R wDOLSsMFC34GZ08cHKtz5 M2uYN2W3PwWWOpczjhrps dpZE1FVIqMDZi vG70jXMtILdiNp8dc3D5q 334RYVeUVLvyG09Pa2wcF zfFIXcbIFIpD0eqkkan6e vcjogIzAwMDAw KKe8EZq3HFAbcWnmIxTiJ SC5QwC0WIR8lDHssJ6nqX fnzqwxrP2mLqa+J3H5B3E kPjwvdHI+PC90 IHIrJA82sBOneVNpw5dvs Jl5RwOyFITuEQC4hWtkHR rfi1LnPRUqB36wjQEgs0W 6IGNvbGxhcHNl MiBrlLL9hS7xQWvwmsigy 2hvwfokKzuhv9ywjj21jW 33Y69oFCdgSXMyMRVmZQO dBQVzxSqgag9r mK4gWe4+KXClaRX2qHC7l E0pAjQoPjO3RLiwY611Ph WkhAQeRbmqe0btc8nzyUy 9IjIwJSIgdmFs qMxzZSK7o9NmRe65G18aC HdpZHRoPSIyMCUiIHZhbG ubmm4vyA4wVm0+HG2qx0z edt53dQ04rQF+ RQTvCJO1dUijKZmqCOYed L3kADqnGaW5ZHRuQiUigN 58jJZjPPtxJx0hmFmefFl oUC2oDWThflre u968TuYhp5xrHTDreCVtF HnwXVL2U10io5O8YDRnAE HpAPM5dQA2rP8edNknvck gbGVmdDsgdmVy bHzpKXmyNGdqK489ASUed UcqGqNyoXHlL4rvcmMGTN 1lOjwvdGQ+LOAjNFK2lAa tJLgjWMYynL9n YBApT1h2ApXkCwQ4SIhhJ 0LnmcW7HXRrsZEcMIKxyU FCuZ0ibsxik6mtxfrnWtL vDWIyNJu9OZk8 DYLanGaeCyYwGSP6CpF1O ZW2pGYfnQ4kpLmsanonzD 9wOyc+RklOOjwvdGQ+PHR vQLV3lJovTEyq YYIsaD3tFDAbQ5s8ZtMiI fC9WMtiU3WdpxK5GDBotB JrVCRjgERZqS5zitban6e vcjogIzAwMDAw ECp3JQn9SVVpxCraCqGpS VS8FiE8WAN8bGPjbY9wlQ gypecfsO2oFjn+TVJOOjw vdGQ+PHRkIHN0 sRvkGKibDMUydS7dYRNzH 7t7ReMeSwY3YUfwW5Ofdc G3VTYlhGJrHRQzeHGSbY5 sbfieq2ysnpay UuIvEJTmLGl0FHo2ETYgc SmbGuGkZTK3SdL8TXL1xO QuoJ3bkGtwntiboN4eGpj +PSU1LIU1WT43 DS83S0FhRxjfuSVbbGL+P HRhYmxlIHdpZHRoPScxMD GhYrNuhTzoNG6tXu1aIPS yLWNvbGxhcHNl OiB (more content not included)... Normal [facility] Note- Provideron 04-06-2021 Urgent Care [...] and Plan Diagnosis Sprain of left foot (PYG89-HJ S93.602A, Discharge, Medical) Plan Condition: Stable. Disposition: [...] can arrange follow-up as needed. Normal [facility] ED Clinical Summaryon 2020 ED Clinical Summary [facility] ? [facility] Care [address] [place] [address] Clinical Summary PERSON INFORMATION Name: LEIGH MONTOYA Age: 20 Years Sex: FEMALE : 2000 MRN: Acct#: Visit Reason: UC - Ankle/Foot/Toe Pain or Swelling; LEFT FOOT PAIN Arrival: 04/05/2021 16:12:07 Discharge: 04/05/2021 17:50:00 LOS: 000 01:38 Check In: 04/05/2021 16:12:07 Checkout: 04/05/2021 17:50:00 Address: [facility] [address] [place] [place] [id number] PCP: Flex Wang DO PROVIDER INFORMATION Provider Role Assigned Unassigned Monica Dunn GRANTS DIRECTOR Nurse 04/05/2021 16:14:32 Paul Atkins PA-C [...] With: Address: When: JEFF JESUS [address] [place] [id number] Business (1) , only if needed With: Address: When: Flex Wang [address] [facility] [place], [place] [id number] Business (1) Within 3 to 5 days DIAGNOSIS: Sprain of left foot Patient Understands: Yes - Patient/family/caregi nela verbalizes understanding of instructions given Comment: Normal [facility] ED Patient Summaryon 021 ED Patient Summary [facility] ? [facility] Care [address] [place], [place] [id number] PATIENT DISCHARGE INSTRUCTIONS Patient Information Name: LEIGH MONTOYA Age: 20 Years Date of : 2000 Reason For Visit: UC - Ankle/Foot/Toe Pain or Swelling; LEFT FOOT PAIN Arrival Time: 04/05/2021 16:12:07 Primary Care Physician: Flex Wang DO Attending Physician: Nirva Nunez Comment: Patient Education With: Address: When: JEFF JESUS [address], [place] [address] [address] Business (1) , only if needed With: Address: When: Flex Wang [address] [facility] [place] [address] Business (1) Within 3 to [...] As (more content not included)... Normal [facility] Recordon 021 Urgent Care Record [facility] ? Urgent Care [address] [facility]. [place], [place] [id number] PATIENT DISCHARGE INSTRUCTIONS Patient Information Name: LEIGH MONTOYA Age: 20 Years Date of : 2000 Reason For Visit: UC - Ankle/Foot/Toe Pain or Swelling; LEFT FOOT PAIN Arrival Time: 04/05/2021 16:12:07 Primary Care Physician: Flex Wang DO Attending Physician: Nirav Nunez Comment: Visit Diagnosis: Diagnoses This Visit Sprain of left foot (S93.602A) UC - Ankle/Foot/Toe Pain or Swelling ([id number]) If you received any narcotics, sedation, or [...] With: Address: When: JEFF JESUS [address] [address] Business (1) , only if needed With: Address: When: Flex Wang [address] [facility], [place] [address] Business (1) Within 3 to 5 days Medication Information: The exam and treatment you received today in the [facility] were for an urgent problem and are not intended as complete care. It is important for you to follow up with a doctor, nurse practitioner, or physician?s drilling assistant for ongoing care. If your symptoms [...] we can reach you if necessary. [facility] has provided you with a complete list of medications post discharge. Please inform your residential care officer/provider of your visit and for further instruction [...] br (more content not included)... [facility] XR Foot Complete Lefton 03-20 [...] 04/06/21 8:27 am Technologist: NELIDA [facility] Coding Summaryon 08-01-2020 Coding Summary HTMLBase 64 FpvfdduvQNy8tIn+PGhlY WQ+EH0MTGXgG26qqUTakN 9BD7nWSN8SIVVPIMZQFC3 PEI6nfOR6WTbeV3MondPc JrabyYKpZD63FYu8XCM2v KxoDXkweY7mdNLqT8y8Hz LfAD61xZ79DRlvRZQtPqR 3LjZpbjsgbWFy C4lvWiAasBDvOms+PHRhY mxlIHdpZHRoPScxMDAlJy RfoQfcOT9cNg6aSVOnVEP vbGxhcHNlOiBj s9jhAVLgJQevXF1zyUebS 8GlsEI1VGMza1t3Uf45oZ I+SLLdWKL5bGeoECogf15 4IwJtv8stDKZ5 iPReDPpeLDQ1B33hz7I2P ARwWFKoRCV8sWX0iN2emK gqjolhR5JugTByVcX4ATF 0tARfoN0enZwp pqfbsT4bQsk+O81KHL8WU ILRXL8UCqo7H8ZmJgfttT I+VF15TNJpET76aWQvjMP ab6okeFj7XhZp UNKcGWW2wMdiIOhko9GeZ STeM72dsVOan1O6TZDbzL bmnLHfZuXjdMY7tE9hCAq bqjooh5vdmpgg Ttevs8usln25aZ95W61xL OgxDCGiQWJ4UZVgOVRicH xvat0bnC6dYn9+NJocb0c ej9vflHs0WyDy OKYzuiDxkPffWQF3s7FcC w68S3RzlSapv2AoDne2zm 28hCXed8H2mCQ7GQyqCTH azA1kSLiyEmZ9 GUWeLbDwxT09fZWgNMxgF l3xqBfgfUueNG2zSYZrsh vuZDLheZ1xKKRgbEUnhJp eWT9mYEGixprz y207VhXuYPU1DOQeqEShD 5FmcP3mGdLuWSFlNOPnE8 AftAVdUShiF360VOfnSpI 3DKItaxTlZ5Rc AFYhvQadRyH6a8H1Di0Rf 3DhgtrbEWF1YFdyTLCwIw B7UbToVmU3E1GxQea5YUO xdBocKS6sJ3Jr BHLuqkqmmtiucNF4IVHyN SMzgB33qKHdUHatQn1rr5 E2e976RDEdSFXqmG23Pm4 udDogMTBwdCBU uB0qorhlm2gdvzopUdDaP OHuMTg1YLz9YSBmiUawVh MbZMC7JuL5MKB1mLAxyC3 unBtiattnqX4t Oyc+K43yeD9kGAQ0ODU9b uxzJQKlzcCpLJ98PJ64D7 RyPjwvdGFibGU+PGRpdiB qoYfrVX7xLoIg o5xjv9JnUWdoM9CoOPWyO AcxAqj9FPTnFII4iMK6wQ 5eIUIcBMqns7D5hSH7Z9K araSygj5zr6cb QFFaLRmvT48azLAim2Y7G OQinDD8QXBeoTpfIbGraP 93Oyc+SMCrbVbkm1NqCdj ow0bje2hkuIq9 LzAhIFNkmnOpgMbsQOZ7z 5ByKz25P76oVUvgVUXuWQ NrRPIwWVDsiMhsei3pkS9 wIi8+PGNvbCB3 nKS5aK8iEMKsSaA5WRuzT 223CzHbbQEjIclhz5lfj4 qzcDl5NfPhVDPqmfEuuUg oSNW6h6PwYt12 Y51xMCnePRUyAFNoBWNmI NXokWlfzf4cfT4sJd0+PC 9yb0ewck60wI93nVS+PHR fTWM5dIsaQVmj RJIkvL6bEYdeTpR2WUEgU qKxwY36vJWuUHsyOd3ltM rutMhuLC1dFGDlcxnzp36 8OgQpj7jbWRBq nUQwFXhrZGO8Z09ip3L8L QKzWGLgOIS3rNG3hY5jtQ lnbjogbGVmdDsgdmVydGl dSOxrJRelS604 IHRvcDsnPlBhdGllbnQgT wUkALz1M0SwBto1LTVzlK ijZF1xbYWyUWriLl8lkWy euAemMZ2cNURt opbmf522UoPys7paDTHff RBsPZbnYDI4C60zb4L2ZU AlVFFyXVD3nKD9hY9pdAg nbjogbGVmdDsg twCpoJdgTDotDLiyW309F HRvcDsnPkJpcnRoIERhdG F7JN25JA35rYHrw2Y8jBH 1M5YsPIMmztsf lrmlvVE5UFDdRTCccE59D t1ovUjpXj6iBOSuCNE0WO JkoOVzG7LtwJ5lPfGjJMN kCOMcD2TrfPMm KMwfH388VIcwKgR0YEEgy zYyE7UiJFJajPypJrR2w4 A5Tj9RS2H2RC40WL07mFL lr6N0dLT7G3Ql HDNzfzycbdjyjVI9MSGyA NKsiG33Uu3kcYooEa6fPF SrGGS8WDBsjAVoI6VprB8 yOiAjMDAwMDAw A5EygKEoCLkeM983RXdyJ aL9IHKnzeRjK9XwPAGwaO lgKdE3f2Y2Dc1SYPy5BG0 2FE06kYMgg6B2 qYD3Q2UgZAIqxqqeonlbh XH4BDSkZSRjbK20Tf1mbO ztKr6hOFZnUQW6AOHqyOQ eR7MljI7uZvKw BKHbRWTuQ8BayYIwEKkoD 423JFkgNqJ1VPSzaxMaS5 OpXVAviMhwQpY7h6E1Dc4 HRUEbWK04EFA7 jAH4WF02OQ63X6BgEctoc GFibGU+PHRhYmxlIHdpZH RoPScxMDAlJyBzdHlsZT0 jJv0wENJfZJQx jPbtaUTlIvRks4zePMRzA HxzAB6cnKwkF5EkvBU7LX Wxa0b6Fz26F55aT2EwdRD +MPIkbER6zEW5 qH3mRyGqQkV6SGqgZ704V uRzpWDiHkotp9yqb4kqnN c9FcH8KOYheeEqqSwpRMG 3j0IyHw27A12h IHdpZHRoPSIxNSUiIHZhb Ucpjy3mrD6uAc8+PGNvbC N5pHB0tD6cMxRyLbC8AWu mV785WyHfzBCc Ngvrj7cxr3jenCc2RqNsU VDbqyHftOncBZJ8j2DeUh 70Z9EyhJtrb9DqWti3ai5 4bWHuq6J4xEU6 A9AmGWPpmslemBJkoZayA Y3sTVEsbwxdVOEdeE2fFO YmK7h2PxWkCaS5YDgnO2S ivsG6NFSkmIQf FOqtSWZ6Y04tv2Y7XJMgY SSkIBA3iAW8yN3lkAxfoj ogbGVmdDsgdmVydGljYWw zVXddE334IEQd gAkvUYVtaS9qXAVwiHQqh WtqFQ6aHMUlquawZbFPET REWSwgSEFOTkFIIEdSQUN BSB41TK81aVEy k0G8mBL0T7FrUBVycyfgb etooNL1OGXvVYChqH03oM QzOPpfNb3le3L1i815BFB iAJCoeJ47Xg9r aDrpVJWeoYDXhB1qbsfbj 1xrtxcoAzTiQPUaMXa4XZ n9LXZhbTyuOzBvVXN6XtQ 4VIM1zKInzS2v cJataiatzO6tPox+MDMvM DkvMjAwMTwvdGQ+PHRkIH I8cLgfSFvgFFMrhX6kSAW tO7l1JvRgSfW5 FZivX9PqINIsfobxTt51l R2bDcHwGuL4FUlnK3Tajf Z5ZPYplPClMTtdSCU4B96 kc6U7XOXsVBBy LNZ0jAK6xS8xxUyqihkvn GVmdDsgdmVydGljYWwtYW zrI898KKQteMqsMqHyCSh fQASsHA02KJ68 pDCie4R3mCD3H7UoPOUpn milheoluOK6DJXgDGWrsF 82wDXkTIwhJh1cb6I3l75 6BVRmQSQizC42 Lt9xfMniOGOogIRCsT0xm wxah7ypnazpZkPtCMJnIB u8HUd8WZGceAjxZsZlXKJ 6VaG9YGH4iIOf qZ4rfOjroktxjX4bPmo+R bIFUEkWVF19LR07mLUpi1 W4sBD4A9ZcGJFnrbklduc ugHM7MITaYXYc gA16gVNhIScrTo6dk2P4g 227QXEmZMHecD41Bo3nlV ufRCUxbXXGoG1nqoysf3u vcjogIzAwMDAw ZHz7NFr5LITddIozJkHzO PP0PsZ2ENG8sMDycC9urS iavinicD5mLbq+U5L2Y3C kPjwvdHI+PC90 FRHfCA88aXKhvSUam0ahi Hl6XkDaPTZqVKS0jBsjAM ajg8YkVKQsV13iuLIdl7W 6IGNvbGxhcHNl GaEdmIO8bR8iXZyrhgoxz 8yibeucBltug3atxj49hE 77W29oXMlfAPBnZOBvOZK fKPKdgNvawg5u mT1oBb8+SSMzvLK9jKW7s W8dSpGyOvL8KUabJ019Zf YjgJCcLzgfr9hgj8irzKs 9IjIwJSIgdmFs zPrbHIG1p2VbHw89T50tD HdpZHRoPSIyMCUiIHZhbG fjey8eoP9eYa9+GL0an8w haw39iA60xBL+ DGMdVJH1mVnuJFphLWJlx X0qKJtxPoA2XXIjUvScpK 81oXFqDPveFi3pbEonmGr jYU9uYMIxpnoy f179EjMcb7uxAPEfbCVnF LrtXDP1W93fl1V9GRPbGA HuEEI7wYW2uJ4mfCfhwvw gbGVmdDsgdmVy lKssOAhgCJjgG450NMCar LezUbWoeUFwO4dfqlKNHP 1lOjwvdGQ+JDGwPQF0mKe pNDypFLKidW2s CAFhL8c3JfFtBbN2LZliW 5AwaeS6BTTtkOFiTHLlwA DQrM3uqjrgb7hsjctxUdA wXMRrJPh6HUl5 YBYlaBmfIyPuAIH1VwG4Q BF1aIClcQ2ycZckrzzqnF 9wOyc+RklOOjwvdGQ+PHR uQHV0xSgkCPpk KSBroI7jAQUjM3h3QnRsA kN8LDmqE0TlrzJ5DKTdeA DfFJBhcTKCaY7ycpgyh9g vcjogIzAwMDAw ACt7TTi2JEOysHvzKcYzM KP6BtF6UQT0wCPhnV9aqW eoliwecM6vLey+TVJOOjw vdGQ+PHRkIHN0 aQteDFjbMWXwkA4rYDTxR 7o3GwTeYpG2JNfdN4Cksr B9OCMfbYXyNVMafWYPsS7 oafmfw1kwjpin EuYmACJiCNd8OYj2EQUnd HzrSaOzKIP5LwY1JHV3pT PsxC3daRswequwuO3eJxc +PQM4LXU9YD69 UP16O6DuFhdnmCAcmXM+P HRhYmxlIHdpZHRoPScxMD ReVrLbeOzaDA4xKf6xFSY yLWNvbGxhcHNl OiB (more content not included)... Normal [facility] C Throaton 07-31-2020 C Throat Ordered by Discern. Normal throat regi isolated No pathogens isolated Normal [facility] Comment on above: Performed By: #### [id number] ####[facility] (DEFAULT)[address] [place] [address] ED Clinical Summaryon 2020 ED Clinical Summary [facility] ? Ur[facility] Care [address] [place] [address] Clinical Summary PERSON INFORMATION Name: LEIGH MONTOYA Age: 20 Years Sex: FEMALE : 2000 MRN: Acct#: Visit Reason: UC - Sore Throat; THROAT PAIN Arrival: 07/29/2020 09:44:22 Discharge: 07/29/2020 10:23:00 LOS: 000 00:39 Check In: 07/29/2020 09:44:22 Checkout: 07/29/2020 10:23:00 Address: [address] [place] [address] PCP: Flex Wang DO PROVIDER INFORMATION Provider [...] Negative . Impression and Plan Diagnosis Pharyngitis (ESQ32-YS J02.9, Discharge, Medical) Plan Condition: Stable. Disposition: Discharged: Time 07/29/2020 10:17:00 (more content not included)... Normal [facility] ED Note - Provideron 021 ED Note [...] Negative . Impression and Plan Diagnosis Pharyngitis (THA45-BX J02.9, Discharge, Medical) Plan Condition: Stable. Disposition: Discharged: Time 07/29/2020 10:17:00, to home. Patient was given the following educational materials: Pharyngitis, Qkvs-nk-Pfaz, Pharyngitis, Slca-qj-Gklv. Follow up with: Flex Wang Within 2 [...] 07/29/2020 10:20 EST] Patricia Meeks PA-C Normal [facility] ED Patient Summaryon 021 ED Patient Summary [facility] ? Urgent Care [address] [place], [place] [id number] PATIENT DISCHARGE INSTRUCTIONS Patient Information Name: LEIGH MONTOYA Age: 20 Years Date of : 2000 [facility]: [id number] Reason For Visit: UC - Sore Throat; THROAT PAIN Arrival Time: 07/29/2020 09:44:22 Primary Care Physician: Flex Wang DO Attending Physician: Patricia Meeks PA-C Comment: Patient Education With: Address: When: Flex Wang [address] [facility], [address] [place] [phone] Business (1) Within 2 to 4 days [...] Follow these instructions at home: ? Take [id number]-[id number] and prescription medicines only as told by [...] 10/22/2008 Document Revised: 04/18/2018 Document Reviewed: 06/11/2017 [employer] Patient Education ? 2020 [employer]. Medication Information: The exam and treatment you received today in the [facility] Emergency Department were for an urgent problem and are not intended as complete care. It is important for you to follow up with a doctor, nurse practitioner, or physician?s drilling assistant for ongoing care. If your symptoms [...] we can reach you if necessary. [facility] Emergency [facility] has provided you with a complete list of medications post discharge. Please inform your residential care officer/provider of your visit and for further instruction [...] (C11 (more content not included)... Normal [facility] Strep Aon 07-29-2020 Strep procedure control Pass Normal [facility] Comment on above: Performed By: #### [id number] ####[facility] (DEFAULT)[address] [place] [id number] Streptococcus A Negative Normal Negative [facility] Comment on above: Performed By: #### [id number] ####[facility] (DEFAULT)[address] [place] [id number] [facility] 021 Urgent Care Record [facility] ? Urgent Care [address] [place] [id number] PATIENT DISCHARGE INSTRUCTIONS Patient Information Name: LEIGH MONTOYA Age: 20 Years Date of : 2000 Reason For Visit: UC - Sore Throat; THROAT PAIN Arrival Time: 07/29/2020 09:44:22 Primary Care Physician: Flex Wang DO Attending Physician: Patricia Meeks PA-C Comment: Visit Diagnosis: Diagnoses This Visit Pharyngitis (J02.9) UC - Sore Throat ([id number]) If you received any narcotics, sedation, or [...] With: Address: When: Flex Wang [address] [facility], [address] [place] [phone] Business (1) Within 2 to 4 days [...] and treatment you received today in the [facility] were for an urgent problem and are not intended as complete care. It is important for you to follow up with a doctor, nurse practitioner, or physician?s drilling assistant for ongoing care. If your symptoms [...] we can reach you if necessary. [facility] has provided you with a complete list of medications post discharge. Please inform your residential care officer/provider of your visit and for further instruction [...] Follow these instructions at home: ? Take domu-xeq-yhwhfxj and prescription medicines only as told by [...] righ (more content not included)... Normal [facility] Coding Summaryon 06-27-2020 Coding Summary CODING DATE: [...] Date Saved: 06/27/2020 12:37 pm [facility] ED Clinical Summaryon 2020 ED Clinical Summary [facility] ? Urgent Care [address] [place] [address] Clinical Summary PERSON INFORMATION Name: LEIGH MONTOYA Age: 19 Years Sex: FEMALE : 2000 MRN: Acct#: Visit Reason: UC - Ear Pain; UC - Ear Pain; RIGHT EAR PAIN Arrival: 06/18/2020 15:00:59 Discharge: 06/18/2020 15:27:00 LOS: 000 00:27 Check In: 06/18/2020 15:00:59 Checkout: 06/18/2020 15:27:00 Address: [address] [place], [place] [id number] PCP: Flex Wang DO PROVIDER INFORMATION Provider Role Assigned Unassigned Monica Dunn GRANTS DIRECTOR Nurse 06/18/2020 15:03:15 Alessandro PA, Marv ED PA 06/18/2020 15:03:24 VITALS INFORMATION Vital Sign Triage Latest Temperature Tympanic Temperature Temporal Artery Pulse Rate O2 Sat 98 % 98 % Respiratory Rate Blood Pressure /78 mmHg /78 mmHg MEDICAL INFORMATION Medications Given: Allergy Information: sulfamethoxazole; ibuprofen PHYSICIAN DOCUMENTATION DISCHARGE INFORMATION: Discharge Disposition: Home Discharge Location: Home PATIENT EDUCATION INFORMATION Instructions: Otitis Media, Adult, Wzom-qc-Syrb Follow-Up: With: Address: When: Flex Wang [address] [facility] [place] [address] Business (1) Comments: Begin on the amoxicillin-clavulana te antibiotic take every 12 hours for the next 10 days Follow-up with your primary care physician in 3-5 days for reevaluation, sooner if any worsening symptoms DIAGNOSIS: Otitis media, right Patient Understands: Yes - Patient/family/caregi nela verbalizes understanding of instructions given Comment: [facility] ED Patient Summaryon 021 ED Patient Summary [facility] ? Urgent Care [address] [place] [address] PATIENT DISCHARGE INSTRUCTIONS Patient Information Name: LEIGH MONTOYA Age: 19 Years Date of : 2000 [facility]: [id number] Reason For Visit: UC - Ear Pain; UC - Ear Pain; RIGHT EAR PAIN Arrival Time: 06/18/2020 15:00:59 Primary Care Physician: Flex Wang DO Attending Physician: Marv Shannon Comment: Patient Education With: Address: When: Flex Wang [address] [facility], [address] [place] [id number] Business (1) Comments: Begin on the amoxicillin-clavulana [...] Follow these instructions at home: ? Take mkfq-pjt-auenvpf and prescription medicines only as told by [...] 10/22/2008 Document Revised: 04/18/2018 Document Reviewed: 05/27/2017 [employer] Patient Education ? 2020 [employer]. Medication Information: The exam and treatment you received today in the [facility] Emergency Department were for an urgent problem and are not intended as complete care. It is important for you to follow up with a doctor, nurse practitioner, or physician?s drilling assistant for ongoing care. If your symptoms [...] we can reach you if necessary. [facility] Emergency Department has provided you with a complete list of medications post discharge. Please inform your residential care officer/provider of your visit and for further instruction on these medications. Any specific questions regarding your chronic medications and dosages should be discussed with your primary care physician(s) and/or pharmacist. New Medications [facility], [address] [place] [id number], [phone] amoxicillin-clavulana te (Augmentin 500 mg-125 mg oral [...] media, right (H66.91) UC - Ear Pain ([id number]) UC - Ear Pain ([id number]) If you received any narcotics, sedation, or any other medication that causes drowsiness for the next 24 hours, unless otherwise directed: ? Do not drive a car. ? Do not operate machinery such as power tools, lawn mowers, drills, sewing machines, or stoves ? Avoid alcoholic beverages and drugs for allergies, n (more content not included)... Normal [facility] Note- Provideron 06-18-2020 Urgent Care [...] Impression and Plan Diagnosis Otitis media, right ([id number] H66.91, Discharge, Medical) Plan Prescriptions: [facility] prescriptions Pharmacy: Augmentin 500 mg-125 mg oral tablet (Prescribe): 1 tab(s), PO, q12hr, for 10 day(s), 20 tab(s), 0 Refill(s). Patient was given the following educational materials: Otitis Media, Adult, Xyws-zk-Ptki. Follow up with: Flex Wang Begin on the amoxicillin-clavulana te antibiotic take every 12 hours for the next 10 days Follow-up with your primary care physician in 3-5 days for reevaluation, sooner if any worsening symptoms. Counseled: Patient, Regarding diagnosis, Regarding diagnostic results, Regarding treatment plan, Regarding prescription, Patient indicated understanding of instructions. Normal [facility] Recordon 01-30-2 021 Urgent Care Record [facility] ? Urgent Care [address] [facility] [place] [address] PATIENT DISCHARGE INSTRUCTIONS Patient Information Name: LEIGH MONTOYA Age: 19 Years Date of : 2000 Reason For Visit: UC - Ear Pain; UC - Ear Pain; RIGHT EAR PAIN Arrival Time: 06/18/2020 15:00:59 Primary Care Physician: Flex Wang DO Attending Physician: Marv Shannon Comment: Visit Diagnosis: Diagnoses This Visit Otitis media, right (H66.91) UC - Ear Pain ([id number]) UC - Ear Pain ([id number]) If you received any narcotics, sedation, or [...] With: Address: When: Flex Wang [address] [facility], [place] [address] Business (1) Comments: Begin on the amoxicillin-clavulana te antibiotic take every 12 hours for the next 10 days Follow-up with your primary care physician in 3-5 days for reevaluation, sooner if any worsening symptoms Medication Information: The exam and treatment you received today in the [facility] were for an urgent problem and are not intended as complete care. It is important for you to follow up with a doctor, nurse practitioner, or physician?s drilling assistant for ongoing care. If your symptoms [...] we can reach you if necessary. [facility] has provided you with a complete list of medications post discharge. Please inform your residential care officer/provider of your visit and for further instruction on these medications. Any specific questions regarding your chronic medications and dosages should be discussed with your primary care physician(s) and/or pharmacist. New Medications [facility]24, [address] [place], [place] [id number], [phone] amoxicillin-clavulana te (Augmentin 500 mg-125 mg oral [...] Follow these instructions at home: ? Take hkdl-vmv-xjphbwd and prescription medicines only as told by [...] You (more content not included)... [facility] Consent Formson 04-28-2020 Consent Forms [id number] [facility] Orderson 04-28-2020 Provider Orders [id number] 04-25-2020 Coding Summary [...] Date Saved: 04/25/2020 02:38 pm [facility] .QC Respiratory Panel 2.1 (B ioFire)on 04-22-2020 Internal Control-Resp Panel 2.1(BioFire) Pass [facility] Comment on above: Order Comment: Order ed by Holley.[[id number]_QC] Performed By: #### 6 [id number], [id number] ####[facility] (DEFAULT)[address] [place] [address] Respiratory Panel 2.1 (BioFi re)on 04-22-2020 Adenovirus -BioFire Not detected Normal Not Detected [facility] Comment on above: Performed By: #### 6 [id number], [id number] ####[facility] (DEFAULT)[address] [place] [address] Bordetella parapertussis -BioFire Not detected Normal Not Detected [facility] Comment on above: Performed By: #### 6 [id number], [id number] ####[facility] (DEFAULT)[address] [place] [address] Bordetella pertussis -BioFire Not detected Normal Not Detected [facility] Comment on above: Performed By: #### 6 [id number], [id number] ####[facility] (DEFAULT)[address] [place] [address] Chlamydia pneumoniae -BioFire Not detected Normal Not Detected [facility] Comment on above: Performed By: #### 6 [id number], [id number] ####[facility] (DEFAULT)[address] [place] [address]69 Coronavirus 229E (Not COVID-19) -BioFire Not detected Normal Not Detected [facility] Comment on above: Performed By: #### 6 [id number], [id number] ####[facility] (DEFAULT)[address] [place] [address]805 Coronavirus HKU1 (Not COVID-19) -BioFire Not detected Normal Not Detected [facility] Comment on above: Performed By: #### 6 [id number], [id number] ####[facility] (DEFAULT)[address] [place] [address] Coronavirus NL63 (Not COVID-19) -BioFire Not detected Normal Not Detected [facility] Comment on above: Performed By: #### 6 [id number], [id number] ####[facility] (DEFAULT)[address] [place] [address]11 Coronavirus OC43 (Not COVID-19) -BioFire Not detected Normal Not Detected [facility] Comment on above: Performed By: #### 6 [id number], [id number] ####[facility] (DEFAULT)[address] [place] [address] Employed in healthcare? No Invalid Interpretation Code [facility] Comment on above: Performed By: #### 6 [id number], [id number] ####[facility] (DEFAULT)[address] [place] [address] Group care resident? No Invalid Interpretation Code [facility] Comment on above: Performed By: #### 6 [id number], [id number] ####[facility] (DEFAULT)[address] [place] [address] 27746 Human Metapneumovirus -BioFire Not detected Normal Not Detected [facility] Comment on above: Performed By: #### 6 [id number], [id number] ####[facility] (DEFAULT)[address] [place] [address] Human Rhinovirus/Enterovir us -BioFire Not detected Normal Not Detected [facility] Comment on above: Performed By: #### 6 [id number], [id number] ####[facility] (DEFAULT)[address] [place] [address] In ICU? No Invalid Interpretation Code [facility] Comment on above: Performed By: #### 6 [id number], [id number] ####[facility] (DEFAULT)[address] [place] [address] 35919 Influenza A (no subtype) -BioFire Not detected Normal Not Detected [facility] Comment on above: Performed By: #### 6 [id number], [id number] ####[facility] (DEFAULT)[address] [place] [address] 60288 Influenza A -BioFire Not detected Normal Not Detected [facility] Comment on above: Performed By: #### 6 [id number], [id number] ####[facility] (DEFAULT)[address] [place] [address] 40897 Influenza A H1 -BioFire Not detected Normal Not Detected [facility] Comment on above: Performed By: #### 6 [id number], [id number] ####[facility] (DEFAULT)[address] [place] [address]10 Influenza A H1-2009 -BioFire Not detected Normal Not Detected [facility] Comment on above: Performed By: #### 6 [id number], [id number] ####[facility] (DEFAULT)[address] [place] [address]3823 Influenza A H3 -BioFire Not detected Normal Not Detected [facility] Comment on above: Performed By: #### 6 [id number], [id number] ####[facility] (DEFAULT)[address] [place] [address] Influenza B -BioFire Not detected Normal Not Detected [facility] Comment on above: Performed By: #### 6 [id number], [id number] ####[facility] (DEFAULT)[address] [place] [address] Mycoplasma pneumoniae -BioFire Not detected Normal Not Detected [facility] Comment on above: Performed By: #### 6 [id number], [id number] ####[facility] (DEFAULT)[address] [place] [address] Parainfluenza Virus 1 -BioFire Not detected Normal Not Detected [facility] Comment on above: Performed By: #### 6 [id number], [id number] ####[facility] (DEFAULT)[address] [place] [address] Parainfluenza Virus 2 -BioFire Not detected Normal Not Detected [facility] Comment on above: Performed By: #### 6 [id number], [id number] ####[facility] (DEFAULT)[address] [place] [address] 89774 Parainfluenza Virus 3 -BioFire Not detected Normal Not Detected [facility] Comment on above: Performed By: #### 6 [id number], [id number] ####[facility] (DEFAULT)[address] [place] [address] Parainfluenza Virus 4 -BioFire Not detected Normal Not Detected [facility] Comment on above: Performed By: #### 6 [id number], [id number] ####[facility] (DEFAULT)[address] [place] [address] status? Not Invalid Interpretation Code [facility] Comment on above: Performed By: #### 6 [id number], [id number] ####[facility] (DEFAULT)[address] [place] [address] Respiratory Syncytial Virus -BioFire Not detected Normal Not Detected [facility] Comment on above: Performed By: #### 6 [id number], [id number] ####[facility] (DEFAULT)[address] [place] [address] SARS-CoV-2 (COVID-19) RNA OZZIE+probe Ql (Unsp spec) Not detected Normal Not Detected [facility] Comment on above: Performed By: #### 6 [id number], [id number] ####[facility] (DEFAULT)[address] [place] [address] SARS-CoV-2 (COVID-19) RNA OZZIE+probe Ql (Unsp spec) No Invalid Interpretation Code [facility] Comment on above: Performed By: #### 6 [id number], [id number] ####[facility] (DEFAULT)[address] [place] [address] Symptomatic as defined by CDC? No Invalid Interpretation Code [facility] Comment on above: Performed By: #### 6 [id number], [id number] ####[facility] (DEFAULT)[address] [place] [address] Vital Signs Date Time Vital Sign Value Performing Clinician Facility 12-06-2021 16:30-0400 Body height 160.02 cm Ezequiel Melo [facility] 12-06-2021 16:30-0400 Body mass index (BMI) [Ratio] 41.62 kg/m2 Ezequiel Melo Other [facility] 12-06-2021 16:30-0400 Body weight 106.6 kg Ezequiel Melo Other [facility] 10-11-2021 14:45-0400 Body height 160.02 cm Ezequiel Dijessie Other [facility] 10-11-2021 14:45-0400 Body mass index (BMI) [Ratio] 41.98 kg/m2 Ezequiel Adamsjessie Other [facility] 10-11-2021 14:45-0400 Body weight 107.5 kg Ezequiel Melo Other [facility] 10-11-2021 14:45-0400 Diastolic blood pressure 79 mm[Hg] Ezequiel Melo Other [facility] 10-11-2021 14:45-0400 Systolic blood pressure 128 mm[Hg] Ezequiel Melo Other [facility] Encounters Encounter Date Encounter Type Care [...] 08-29-[address] [facility] [place] Start: 01-12-2022 End: 01-16-[address] [facility]IR[facility] [place] Start: 12-06-2021 End: 12-06-2021 ambulatory Ezequiel Melo Other [facility] Start: 12-06-2021 Patient encounter procedure Ezequiel Melo [facility] Start: 10-11-2021 End: 10-11-2021 ambulatory Ezequiel Melo Other [facility] Start: 10-11-2021 [facility] visit new patient Ezequiel Melo [facility] Payers Date Payer Category Payer Unknown [id number] 2000 Unknown [id number] 2.16.84 [id number] 2000 Unknown [id number] 2.16.84 [id number] 2000 Unknown [id number] 2.16.84 0.1.296288.3.579.2.9 2000 Unknown [id number] 2.16.84 0.1.643876.3.579.2.1259 2000 Unknown [id number] 2.16.84 0.1.123540.3.579.2.9 2000 Unknown [id number] 2.16.84 0.1.832925.3.579.2.9 2000 Unknown [id number] 2.16.84 0.1.037894.3.579.2.9 2000 Unknown [id number] 2.16.84 0.1.926230.3.579.2.1259 2000 Unknown [id number] 2.16.84 0.1.025922.3.579.2.9 2000 Unknown [id number] 2.16.84 0.1.391050.3.579.2.1259 1959 Unknown [id number] Medicaid [id number] . [id number] Social History Date Type Detail Facility Sex Assigned At [facility] Evaluation note 12-06-2021 Note Date & Type Note Facility 12-06-2021 Evaluation note Encounter Date Diagnosis Assessment Notes Nov, Dyspepsia (ICD-10 - K30) patient states does have some bloating in the left center she does have pain noted. patient is advised that we can start levsin and refer to call center professional for food testing. [facility] Evaluation note 10-11-2021 Note Date & Type Note Facility 10-11-2021 Evaluation note Encounter Date Diagnosis Assessment Notes September, Bloating (ICD-10 - R14.0) September, Dyspepsia (ICD-10 - K30) September, Abdominal pain (ICD-10 - R10.9) [facility] Clinical Note 04-05-2021 Note Date & [...] This may take several hours. ? Take simn-yvj-wiafcdb and prescription medicines only as told by your health care provider. ? When you can walk without pain, wear supportive shoes that have stiff soles. Do not wear flip-flops, and do not walk barefoot. ? Keep all follow-up visits as told by your health care provider. This is important. Contact a health care provide (more content not included)... [facility] Clinical Note 07-29-2020 Note Date & Type Note Facility 07-29-2020 Note Patient Education Ma terials Follows:Disease Pharyngitis Pharyngitis is a sore throat (pharynx). This is when there is redness, pain, and swelling in your throat. Most of the time, this condition gets better on its own. In some cases, you may need medicine. Follow these instructions at home: ? Take hnye-iic-nisgxes and prescription medicines only as told by [...] Reviewed: 06/11/2017 [employer] Patient Education ? 2019 [employer]. [facility] Clinical Note 06-18-2020 Note Date & Type Note Facility 06-18-2020 Note Patient Education Ma terials Follows: Otitis Media, Adult Otitis media means that the middle ear is red and swollen (inflamed) and full of fluid. The condition usually goes away on its own. Follow these instructions at home: ? Take gore-ble-jsotdbk and prescription medicines only as told by [...] 10/22/2008 Document Revised: 04/18/2018 Document Reviewed: 05/27/2017 [employer] Patient Education ? 2019 [employer]. [facility] Clinical Note 04-22-2020 Note Date & Type Note Facility 04-22-2020 Note Nasal swab performed without complication. Patient tolerated well. Education given. Patient verbalized understanding. [Electronically Signed on: 04/22/2020 15:05 EST] Miri Nuñez RN [Verified on: 04/22/2020 15:05 EST] Miri Nuñez RN [facility] History general Narrative - Reported Note Date & Type Note Facility History general Narrative - Reported Type Medical History PCOS Medical History Endometriosis Surgical History laparoscopy - endometriosis [facility] Reason for referral (narrative) Note Date [...] is able to get in before this. [facility] Reason for visit Narrative Note Date & Type Note Facility Reason for visit Narrative PATIENT HERE AT THE REQUEST OF DR. VERGARA FOR EVALUATION & TREATMENT OF BLOATING [facility] Reason for visit Narrative Note Date [...] of the side effects that were listed. [facility] Summary Purpose Family History No Family History Records FoundNo Family History Records FoundNo Family History Records FoundNo Family History Records Found Advance Directives No Advanced Directives Records FoundNo Advanced Directives Records FoundNo Advanced Directives Records FoundNo Advanced Directives Records Found Additional Source Comments INFORMATION SOURCE (unrecogn ized section and content) DATE CREATED AUTHOR 04/21/2021 [facility] DATE CREATED AUTHOR AUTHOR'S ORGANIZ ATION 11/08/2021 [facility] DATE CREATED AUTHOR AUTHOR'S ORGANIZ ATION 09/06/2022 [facility] DATE CREATED AUTHOR AUTHOR'S ORGANIZ ATION 01/31/2024 [facility] EPIC FOR RECORDS PERTAINING [...] BE BASED ON THE PRIMARY CLINICAL RECORDS. [facility] provides no warranty or guarantee of the accuracy or completeness of information in this document.
[2024-02-17 18:57] LABS: Basophils Percent Auto 0.2 % (0.2-2.0); Eosinophils Absolute Auto 0.1 10^3/uL (0.0-0.7); Eosinophils Percent Auto 0.7 % (0.9-7.0); Hematocrit 34.1 % (36.0-48.0); Immature Granulocytes Abs Auto 0.02 10^3/uL (0.00-0.03); Immature Granulocytes Pct Auto 0.2 % (0.0-0.5); Lymphocytes Absolute Auto 1.7 10^3/uL (1.2-3.8); Lymphocytes Percent Auto 21.6 % (20.5-60.0); Mean Corpuscular HGB Conc 32.3 g/dL (29.9-35.2); Mean Corpuscular Hemoglobin 27.8 pg (26.7-34.0); Mean Corpuscular Volume 86.1 fL (81.0-99.0); Mean Platelet Volume 10.4 fL (9.5-13.5); Monocytes Absolute Auto 0.6 10^3/uL (0.3-0.8); Monocytes Percent Auto 7.3 % (1.7-12.0); Neutrophils Absolute Auto 5.6 10^3/uL (1.4-6.5); Platelet Count 237 10^3/uL (150-450); Red Blood Count 3.96 10^6/uL (4.20-5.40); Red Cell Distribution Width 14.8 % (11.0-15.0)
[2024-02-17] MEDS: LABETALOL HCL 20 MG/4 ML SYRINGE IVP (19:01)
[2024-02-17] MEDS: 0.9 % SODIUM CHLORIDE 1,000 ML 125 ML IV (19:03)
[2024-02-17 19:13] LABS: Amphetamine Screen Urine NEGATIVE (NEGATIVE); Barbiturates Screen Urine NEGATIVE (NEGATIVE); Benzodiazepines Screen Urine NEGATIVE (NEGATIVE); Buprenorphine Screen Urine NEGATIVE (NEGATIVE); Cannabinoid Screen Urine NEGATIVE (NEGATIVE); Cocaine Screen Urine NEGATIVE (NEGATIVE); Methadone Screen Urine NEGATIVE (NEGATIVE); Methamphetamines Screen Urine NEGATIVE (NEGATIVE); Opiate Screen Urine NEGATIVE (NEGATIVE); Oxycodone Screen Urine NEGATIVE (NEGATIVE); Phencyclidine Screen Urine NEGATIVE (NEGATIVE); Tricyclic Antidepressant Urine NEGATIVE (NEGATIVE)
[2024-02-17 19:22] LABS: Alanine Aminotransferase 14 U/L (14-59); Aspartate Amino Transferase 13 U/L (15-37); Estimated GFR (African America >60 (>=60); Estimated GFR (Non-African Ame >60 (>=60); Uric Acid 3.8 mg/dL (2.6-6.0)
[2024-02-17] MEDS: OXYTOCIN/0.9 % SODIUM CHLORIDE 10 UNITS/500 ML PLAST..BAG 6 UNIT IV (19:37)
[2024-02-17 19:57] LABS: INR 0.97; Partial Thromboplastin Time 30.8 sec (22.3-36.2); Prothrombin Time 10.3 sec (9.0-11.6)
[2024-02-17 20:00] LABS: Fibrinogen 513 mg/dL (200-400)
[2024-02-17] MEDS: LABETALOL HCL 200 MG TABLET PO (21:13)
[2024-02-18] VITALS (67 sets, daily range): BP systolic 83–156; BP diastolic 39–91; PULSE 70–123; TEMP 36.9–37.7
[2024-02-18] MEDS: NALBUPHINE HCL 10 MG/ML AMPULE IV (00:52)
[2024-02-18] MEDS: 0.9 % SODIUM CHLORIDE 1,000 ML 1000 ML IV (02:45)
[2024-02-18] MEDS: ROPIVACAINE HCL/PF 400 MG/200 ML PREMIX 6 MG EPIDURAL (04:53)
[2024-02-18] MEDS: 0.9 % SODIUM CHLORIDE 1,000 ML 125 ML IV (04:53)
--- NOTE | 2024-02-18 13:05 | PM.OBPRCVD ---
Procedure Intrapartal events: None Induction method: per pitocin protocol Delivery augmentation: rupture of membranes and pitocin Delivery monitor: external FHT and external uterine Route of delivery: Episiotomy Description: none L&D Laceration Description: perineal - 2nd degree Delivery repair: Vicryl Estimated blood loss (mL): 300 Anesthesia type: Epidural Disposition: floor Infant Delivery date: 02/18/24 Gender: male presentation: vertex Placental delivery description: Spontaneous cord description: 3 Vessels
[2024-02-18] MEDS: OXYTOCIN/0.9 % SODIUM CHLORIDE 20 UNITS/1,000 ML PLAST..BAG 125 UNIT IV (13:22)
[2024-02-18] MEDS: LIDOCAINE HCL 1% 200 MG/20 ML MDV INJ (13:24)
[2024-02-18] MEDS: IBUPROFEN 600 MG TABLET PO ×2 (13:29→19:59)
--- NOTE | 2024-02-18 14:50 | PC.NURSE ---
1440 epidural removed intact to tip, pt rolled to side for c/o back and neck pain, heating pad to back, continues with decreased sensation to legs-RN lifts pt assist to postion, states needs to void will attempt on pads peripads beneath pt
[2024-02-18] MEDS: ACETAMINOPHEN 325 MG TABLET 650 MG PO ×2 (15:34→22:37)
[2024-02-18] MEDS: GLYCERIN/WITCH HAZEL PADS 1 PAD TOPICAL (15:35)
[2024-02-18] MEDS: BENZOCAINE/MENTHOL 85 GRAM SPRAY BOTTLE 1 APPLIC TOPICAL (15:36)
--- NOTE | 2024-02-18 15:45 | PC.NURSE ---
transfers ambulatory to room 252 with baby and belongings, uses BR first and voids, given pericare instructions along with ice pack, tucks dermoplast and a fresh icepack applied, heating pad to neck
--- NOTE | 2024-02-18 16:11 | PC.NURSE ---
1540 medicated with tylenol for neck pain of a 4, sits up in chair
--- NOTE | 2024-02-18 20:13 | PC.NURSE ---
2000 up to br with minimal assist and and into chair and hand expression taught, unable to sustain latch
[2024-02-18] MEDS: LABETALOL HCL 200 MG TABLET PO (22:33)
[2024-02-19] MEDS: IBUPROFEN 600 MG TABLET PO ×3 (02:29→17:14)
--- NOTE | 2024-02-19 05:42 | P.OBPN_ITS ---
OB - PN: Subj Subjective Patient comments: no complaints and pain well controlled [place] status: doing well Exam Constitutional Vital Signs, click to edit/add: Last Vital Signs Temp 98.5 F 02/18/24 22:27 Pulse 86 02/18/24 22:27 Resp 18 02/18/24 22:27 BP 131/75 02/18/24 22:27 O2 Del Method Room Air 02/18/24 22:27 Documenting provider has reviewed patient's vital signs: yes Common normals: no apparent distress Respiratory Common normals: clear to auscultation bilaterally Cardio Common normals: regular rate and regular rhythm GI Common normals: Normal to inspection, nondistended, normoactive bowel sounds present Extremity Common normals: no calf tenderness OB - PN: A/P Plan - Vaginal Delivery day: 1 Plan: routine care Time Spent with Patient Time: Total time spent is greater than 50% in coordination of care (as documented) at patient's floor/unit and/or counseling patient: Total time spent with greater than 50% in coordination of care (as documented) at patient's floor/unit and/or counseling patient: less than 15 minutes
[2024-02-19 06:56] LABS: Basophils Percent Auto 0.4 % (0.2-2.0); Eosinophils Absolute Auto 0.1 10^3/uL (0.0-0.7); Eosinophils Percent Auto 0.7 % (0.9-7.0); Hematocrit 25.2 % (36.0-48.0); Hemoglobin 8.1 g/dL (12.0-16.0); Immature Granulocytes Abs Auto 0.02 10^3/uL (0.00-0.03); Immature Granulocytes Pct Auto 0.3 % (0.0-0.5); Lymphocytes Absolute Auto 1.9 10^3/uL (1.2-3.8); Lymphocytes Percent Auto 26.2 % (20.5-60.0); Mean Corpuscular HGB Conc 32.1 g/dL (29.9-35.2); Mean Corpuscular Volume 87.2 fL (81.0-99.0); Mean Platelet Volume 11.1 fL (9.5-13.5); Monocytes Absolute Auto 0.6 10^3/uL (0.3-0.8); Monocytes Percent Auto 7.9 % (1.7-12.0); Neutrophils Absolute Auto 4.6 10^3/uL (1.4-6.5); Neutrophils Percent Auto 64.5 % (43.0-75.0); Platelet Count 169 10^3/uL (150-450); Red Blood Count 2.89 10^6/uL (4.20-5.40); Red Cell Distribution Width 15.2 % (11.0-15.0); White Blood Count 7.1 10^3/uL (4.0-11.0)
[2024-02-19 07:29] VITALS: BP 124/79; PULSE 93
[2024-02-19 07:34] VITALS: TEMP 36.6
[2024-02-19] MEDS: ACETAMINOPHEN 325 MG TABLET 650 MG PO ×3 (07:43→21:03)
[2024-02-19] MEDS: LABETALOL HCL 200 MG TABLET PO ×2 (09:19→21:03)
[2024-02-19] MEDS: DOCUSATE SODIUM 100 MG CAPSULE PO ×2 (09:20→21:03)
[2024-02-19 10:21] VITALS: BP 121/70; PULSE 93
[2024-02-19 15:26] VITALS: BP 130/73; PULSE 81
[2024-02-19 21:02] VITALS: BP 136/81; PULSE 81
[2024-02-20 01:42] VITALS: BP 132/77; PULSE 83
[2024-02-20 01:50] VITALS: TEMP 36.7
[2024-02-20] MEDS: ACETAMINOPHEN 325 MG TABLET 650 MG PO ×3 (03:19→17:36)
[2024-02-20] MEDS: IBUPROFEN 600 MG TABLET PO ×3 (06:16→13:12)
[2024-02-20 08:46] VITALS: BP 135/75; PULSE 80
[2024-02-20] MEDS: LABETALOL HCL 200 MG TABLET PO ×2 (08:47→22:51)
[2024-02-20] MEDS: DOCUSATE SODIUM 100 MG CAPSULE PO ×2 (08:47→22:51)
[2024-02-20 09:03] VITALS: TEMP 36.7
[2024-02-20] MEDS: ONDANSETRON 4 MG RAPDIS TABLET SL (10:18)
--- NOTE | 2024-02-20 13:17 | PM.OBDS ---
DS: Providers Provider Date of admission: 02/17/24 18:23 Primary care physician: Non-Staff Physician, Admitting clinician: Michael Soni Discharging clinician: Kandy Shah Anticipated date of discharge: 02/20/24 DS: Diagnosis Discharge Diagnosis (1) Normal vaginal delivery: Assessment and plan: 2nd degree repair, breast feeding but thinking of stopping, lochia normal, blood pressure controlled by labetalol 200 mg BID and will give script for, will discharge but if baby is not discharged this pm, RN will cancel (2) PIH ( induced hypertension): Assessment and plan: given script for labetalol, 200 mg PO BID, should return to office in one week for BP check (3) Anemia affecting in third trimester: Assessment and plan: given script for feso4 one tab qd for thirty days, continue PNV Plan discharge home, instructions given, stated understanding OB - DS: Summary Hospital Course Hospital Course: uncomplicated Time spent discussing smoking cessation with patient: 3 to 10 minutes Peripartum Data - Vaginal Delivery Laceration description: perineal - 2nd degree Complications complications: none Infant Delivery method: spontaneous vaginal delivery Gender: male Discharge plan: home Status at Discharge Cognitive/behavioral status at discharge: wnl Functional status at discharge: independent ambulation Overall status at discharge: patient is progressing back to baseline Time Spent with Patient Time attestation: Total time spent providing and/or coordinating discharge services: Time spent: less than 30 minutes Exam Narrative Exam Narrative: voicing no complaint Constitutional Vital Signs, click to edit/add: Last Vital Signs Temp 98.0 F 02/20/24 09:03 Pulse 80 02/20/24 08:46 Resp 16 02/20/24 09:03 BP 135/75 02/20/24 08:46 O2 Del Method Room Air 02/20/24 09:04 Documenting provider has reviewed patient's vital signs: yes Common normals: no apparent distress, oriented x3, no limitations, healthy appearing, alert and well nourished General appearance: cooperative and comfortable HENMT Common normals: normocephalic and head/scalp atraumatic Eye Common normals: PERRL Pupil: accommodation reflex normal Neck & C-Spine Common normals: full ROM Respiratory Common normals: normal respiratory effort Auscultation: clear to auscultation bilaterally Cardio Common normals: regular rate and regular rhythm GI Common normals: Normal to inspection, nondistended, normoactive bowel sounds present, soft to palpation and non-tender Common normals: no CVA tenderness Back & Pelvis Common normals: no thoracic nor lumbar tenderness Extremity Common normals: full ROM and no calf tenderness Neuro Common normals: oriented x3, CN's II-XII intact bilaterally, moves all extremities, no focal motor deficits and no sensory deficits noted Psych Common normals: mental status grossly normal, thought process normal, cooperative, affect normal and speech normal Discharge Plan Discharge Disposition: Home, Self-Care Condition: Good Assessment: condition good, vss, no temp Plan of Treatment: discharge home, if baby not discharged, RN will cancel discharge Activity: resume usual activities as tolerated Activity Detail: no sex six weeks, walking only exercise 6 weeks, may shower, no bathtub 4 weeks, only lift baby 4 weeks, general covid and rsv precautions given, sports bra 10/12 if decides to stop breast feeding, limit time in car for four weeks Diet: regular diet Print Language: Turkish Forms: Vaginal Delivery - Discharge, Portal Instructions Follow Up Appointments: schedule post exam with Dr. Soni Discharge location: home
[2024-02-20 15:44] VITALS: BP 117/75; PULSE 88
[2024-02-20 15:45] VITALS: TEMP 36.8
[2024-02-20] MEDS: CYCLOBENZAPRINE HCL 10 MG TABLET PO (22:50)
[2024-02-21 00:55] VITALS: TEMP 36.9
[2024-02-21 00:57] VITALS: BP 142/67; PULSE 68
[2024-02-21] MEDS: ACETAMINOPHEN 325 MG TABLET 650 MG PO ×2 (01:00→14:38)
[2024-02-21 07:48] VITALS: BP 123/73; PULSE 71
[2024-02-21] MEDS: IBUPROFEN 600 MG TABLET PO ×2 (07:49→14:38)
[2024-02-21 08:00] VITALS: TEMP 37.6
[2024-02-21] MEDS: LABETALOL HCL 200 MG TABLET PO (11:05)
[2024-02-21] MEDS: DOCUSATE SODIUM 100 MG CAPSULE PO (11:05)
--- NOTE | 2024-02-21 11:43 | PM.OBDS ---
DS: Providers Provider Date of admission: 02/17/24 18:23 Primary care physician: Non-Staff Physician, Admitting clinician: Michael Soni Consults: 02/21/24 Physical Therapy Eval and Treat Routine Reason for consultation: severe neck and back pain after pushing for 2 1/2 hrs during labor and deli Has provider been notified: Yes Discharging clinician: Kandy Shah Anticipated date of discharge: 02/21/24 DS: Diagnosis Discharge Diagnosis (1) Muscle strain: Assessment and plan: patient had been scheduled for discharge yesterday which had to be canceled because of a new onset of neck pain believed to be due to nonanatomic position patient held her head in for over 2 and one half hours while pushing. had the [employer] see and PT is pending. otherwise clinical exam nonfocal and ready for discharge. Plan after physical therapy consult, will discharge home with follow up already discussed OB - DS: Summary Hospital Course Hospital Course: uncomplicated Time spent discussing smoking cessation with patient: 3 to 10 minutes Complications complications: none Infant Delivery method: spontaneous vaginal delivery Gender: male Discharge plan: home Status at Discharge Cognitive/behavioral status at discharge: wnl Overall status at discharge: patient is progressing back to baseline Time Spent with Patient Time attestation: Total time spent providing and/or coordinating discharge services: Time spent: less than 30 minutes Exam Constitutional Vital Signs, click to edit/add: Last Vital Signs Temp 98.4 F 02/21/24 00:55 Pulse 71 02/21/24 07:48 Resp 17 02/21/24 00:55 BP 123/73 02/21/24 07:48 O2 Del Method Room Air 02/21/24 00:55 Common normals: no apparent distress and oriented x3 HENMT Common normals: normocephalic and head/scalp atraumatic Eye Common normals: PERRL Pupil: accommodation reflex normal Neck & C-Spine Common normals: full ROM (however painful to move head or rotate) and supple Respiratory Common normals: normal respiratory effort Auscultation: clear to auscultation bilaterally Cardio Common normals: regular rate and regular rhythm GI Common normals: Normal to inspection, nondistended, normoactive bowel sounds present and soft to palpation Common normals: no CVA tenderness Back & Pelvis Common normals: no thoracic nor lumbar tenderness Extremity Common normals: normal to inspection, full ROM and no calf tenderness Neuro Common normals: oriented x3, CN's II-XII intact bilaterally, moves all extremities, no focal motor deficits and no sensory deficits noted Psych Common normals: mental status grossly normal, thought process normal, cooperative and affect normal Discharge Plan Discharge Disposition: Home, Self-Care Condition: Good Assessment: condition good, vss, no temp Plan of Treatment: discharge home, if baby not discharged, RN will cancel discharge Activity: resume usual activities as tolerated Activity Detail: no sex six weeks, walking only exercise 6 weeks, may shower, no bathtub 4 weeks, only lift baby 4 weeks, general covid and rsv precautions given, sports bra 10/12 if decides to stop breast feeding, limit time in car for four weeks Diet: regular diet Print Language: German Patient Instructions: Anemia (DC) Activity Restrictions/Additional Instructions: as previously stated Forms: Vaginal Delivery - Discharge, Portal Instructions Follow Up Appointments: schedule post exam with Dr. Soni Discharge location: home
--- NOTE | 2024-02-21 11:53 | PC.NURSE ---
[address] in bed. Discussed neck and back and shoulder pain. States felt flexeril may have taken the edge off the pain but the pain persists especially when up ambulating and describes pain as shoulder and neck tenderness with sharp pulsating back pain. Also voices feels spasms in muscles at times.
--- NOTE | 2024-02-21 11:56 | PC.NURSE ---
[address] Shah regarding pt complaints as noted. This RN then speaks with Brigid Camacho per instruction of Dr Shah about pain, no further orders and PT ordered per instruction and called to assess pt today
[2024-02-21] MEDS: GLYCERIN/WITCH HAZEL PADS 1 PAD TOPICAL (14:39)
--- NOTE | 2024-02-21 14:43 | PC.NURSE ---
c.o increased pain to neck and back and medicated for same, states was okay then tried walking to BR and pain resumed.
--- OUTSIDE RECORDS SUMMARY | 2024-02-26 14:45 | XMS_ITS | CCD ---
Author Organization [facility] Care Team Providers Care Gang Miner Name Role Phone Ezequiel Melo Unavailable [facility], DR MIRANDA Primary Care Unavailable NAE ., [...] Unavailable Flex Wang MD Primary Care Provider [phone] Allergies Allergy Classification Reported Allergen(s) Allergy Type Date of Onset Reaction(s) Facility (2 sources) Sulfacetamide Drug Allergy [facility] Other (1 source) Sulfonamides (Antibiotic) Drug allergy (disorder) [facility] Repository (1 source) Chocolate candy Propensity to adverse reactions 12-17-19 24 GI intolerance, Itching, Runny nose, Swelling [facility] Work Phone: (1 source) pecan pollen extract Drug Allergy 12-17-19 24 Unknown [facility] (1 source) Sulfonamides (Antibiotic) Drug Intolerance 05-20-19 03 Hives, Anxiety, Dizziness, Fever, Headache, Itching, Rash, Shortness of breath, Swelling [facility] (1 source) Pork-Derived Products Propensity to adverse reactions 12-17-19 24 Dizziness, GI intolerance, Headache, Itching, Shortness of breath [facility] Medications Current Medications Medication Drug Class(es) [...] WITH AUTO DIFFon BASOPHILS ABSOLUTE AUTO 0.0 [facility] Basophils/100 WBC (Bld) 0.4 % 0.2 - 2.0 % [facility] Eosinophils/100 WBC (Bld) 0.7 % Low 0.9 - 7.0 % [facility] Erythrocyte distribution width (RBC) [Ratio] 15.2 % High 11.0 - 15.0 % [facility] Hematocrit (Bld) [Volume fraction] 25.2 % Low 36.0 - 48.0 % [facility] Hemoglobin (Bld) [Mass/Vol] 8.1 g/dL Low 12.0 - 16.0 g/dL [facility] IMMATURE GRANULOCYTES ABS AUTO 0.02 [facility] Immature granulocytes/100 WBC (Bld) 0.3 % 0.0 - 0.5 % [facility] Interpretation and review of laboratory results Abnormal [facility] LYMPHOCYTES ABSOLUTE AUTO 1.9 [facility] Lymphocytes/100 WBC (Bld) 26.2 % 20.5 - 60.0 % [facility] MCH (RBC) [Entitic mass] 28.0 pg 26.7 - 34.0 pg [facility] MCHC (RBC) [Mass/Vol] 32.1 g/dL 29.9 - 35.2 g/dL [facility] MCV (RBC) [Entitic vol] 87.2 fL 81.0 - 99.0 fL [facility] MONOCYTES ABSOLUTE AUTO 0.6 [facility] Monocytes/100 WBC (Bld) 7.9 % 1.7 - 12.0 % [facility] NEUTROPHILS ABSOLUTE AUTO 4.6 [facility] Neutrophils/100 WBC (Bld) 64.5 % 43.0 - 75.0 % [facility] Platelet mean volume (Bld) [Entitic vol] 11.1 fL 9.5 - 13.5 fL [facility] TBH EO # 0.1 [facility]H PLT 169 [facility] RBC 2.89 Low [facility] WBC 7.1 [facility] PAP ACOG PANEL 2: 21 to 29on 09-06-2022 . . Normal [facility] Comment on above: Performed By: #### 4 [id number] #### [facility] [address] [place] [address] Dr. Dat Wesley Age Gdln ACOG Testing 21-29 [facility] Comment on above: Performed By: #### 4 [id number] #### [facility] [address] [place] [address] Dr. Dat Wesley DIAGNOSIS: Comment [facility] Comment on above: Result Comment: NEGA TIVE FOR INTRAEPITHELIAL LESION OR MALIGNANCY. Performed By: #### 4 [id number] #### [facility] [address] [address] [address] Dat Wesley Methodology: Comment [facility] Comment on above: Result Comment: This liquid based ThinPrep(R) pap test was screened with the use of an image guided system. Performed By: #### 4 [id number] #### [facility] [address] [place] [address] Dr. Dat Wesley Note: Comment [facility] Comment on above: Result Comment: The Pap smear is a screening test designed to aid in the detection of premalignant and malignant conditions of the uterine cervix. It is not a diagnostic procedure and should not be used as the sole means of detecting cervical cancer. Both false-positive and false-negative reports do occur. . Performed By: #### 4 [id number] #### [facility] [address] [place] [address] Dr. Dat Wesley Performed by: Comment Normal [facility] Comment on above: Result Comment: Singh Sanders Electrical Electronics Engineer (ASCP) Performed By: #### 4 [id number] #### [facility] [address] [place] [address] Dr. Dat Wesley Reflex Criteria: Comment [facility] Comment on above: Result Comment: The HPV DNA reflex criteria were not met with this specimen result therefore, no HPV testing was performed. . Performed By: #### 4 [id number] #### [facility] [address] [place] [address] Dr. Dat Wesley Specimen adequacy: Comment Normal [facility] Comment on above: Result Comment: Sati sfactory for evaluation. Endocervical and/or squamous metaplastic cells (endocervical component) are present. Performed By: #### 4 [id number] #### [facility] [address] [address] [address] Dat Wesley HCG,Urineon 11-03-2021 Beta HCG ( test) Ql (U) Negative Normal [facility] Comment on above: Result Comment: PERF ORMED BY: [facility] [address] [place] [address] PATHOLOGIST PICCOLOIST SULTANA PETE M.D. Performed By: #### U HCG #### [id number] [facility] Charles 11-03-2021 L Specimen: [id number] Received: 11/03/21 Status: AYDIN Johnson Num: [id number] Spec Type: Surgical Subm Dr: Ezequiel Melo MD Tissues: A Small Intestine - Biopsy/Polyp (SMALL BOWEL) Procedures: HE Stain/2, Gross/Micro L4 Patient Age/Sex Location Account Attending Physician Carn[place],Leigh G [id number] Ezequiel Melo MD SPEC NUM: RECD: 11/03/21 STATUS: [facility] RE NUM: [id number] PAPI: 11/03/21 [facility] DR: Ezequiel Melo MD ENTERED: 11/03/21 [facility] DR: SPEC TYPE: Surgical DEPT: [...] is performed. This case is interpreted at [facility], [place], [place] Specimen: Received: 11/03/21 Status: AYDIN Johnson Num: [id number] Spec Type: Surgical Subm Dr: Ezequiel Melo MD Tissues: A Small Intestine - Biopsy/Polyp (SMALL BOWEL) Procedures: HE Stain/2, Gross/Micro L4 Patient: Leigh Singh [id number] (Continued) Specimen: [id number] Received: 11/03/21 (Continued) Signed (signature on file) Gabe Ellis MD 11/06/21 1703 Specimen: [id number] Received: 11/03/21 Status: AYDIN Johnson Num: [id number] Spec Type: Surgical Subm Dr: Ezequiel Melo MD Tissues: A Small Intestine - Biopsy/Polyp (SMALL BOWEL) Procedures: HE Stain/2, Gross/Micro L4 Patient: Leigh Singh [id number] (Continued) Specimen: Received: 11/03/21 (Continued) CPT Codes 41936 Specimen: Received: 11/03/21 Status: AYDIN Johnson Num: [id number] Spec Type: Surgical Subm Dr: Ezequiel Melo MD Tissues: A Small Intestine - Biopsy/Polyp (SMALL BOWEL) Procedures: HE Stain/2, Gross/Micro L4 Patient: JuanshaunaLeigh Craig [id number] (Continued) Signed (signature on file) Gabe Ellis MD 11/06/21 1703 Normal [facility] SARS-CoV-2 (COVID-19) RNA OZZIE+probe Ql (Unsp spec) Negative Normal Negative [facility] Comment on above: Order Comment: Healt hcare Worker?: N Result Comment: Testing for SARS-CoV-2 by RT-PCR This test was developed and its performance characteristics determined by [employer] and validated at the [facility]. This test has not been [...] is terminated or revoked sooner. PERFORMED BY: [address] [place] [address] PATHOLOGIST PICCOLOIST SULTANA PETE M.D. Performed By: #### C OVID 19 [facility] #### [address] Coding Summaryon 12-01-2021 Coding Summary HTMLBase 64 XjfykbevEJt1kRg+PGhl YWQ+DD2XTKPtL28ctWEi qT5PZ9lNAN4YAPUUTYHQ PC8PGH4mgCC9OXieO6Lt biAv TaaijIKkVJ62PFi7MIX6 yVfwGFzyiA4luEJvJ8y0 HhHsXF45cW29IZvnSWZo OkW6TvGnfefqyCPr X8ktBhLgmXOlOzk+PHRh YmxlIHdpZHRoPScxMDAl PnXwfReeKK2tIm3mGICw LWNvbGxhcHNlOiBj n9pvCDEtVPfiMJ3zeDly R6GdkXS3GPPxe5o6Ng65 dHI+LITwXEM5kUxjPIub k504SiVah4dhMRE3 xFWnXYcxTCZ9J22zf6H6 OMIlRFWsVFC1gYS9zT8c aIwudlyjU3DqlTGzQoI1 IYK0yISbjF8viZau vlgakN7gZjw+W05OYE2T JXVVLT1GHit5X7VeNzaw dHI+ME97ZXKbAJ20uYZg qUJof7luuLk8SoSh DKEjTIR7oUjiXIyrc3Sd SKNnF69ejQNli0S2GFHi yZxkqIVjVhNwdJE6sQ6h KDpjrrkpy1zsiois Iaelb0djuv19pT87O46q PNmuNCNgNOG8UUMmJMMb rUaafp0cwQ3jTi6+IDxj y2ysm1jxsVx4TzVg ZCDqiaIvcSlkLVZ1z2Hx Qm60A9ZgvEfme2PhHmc3 fe11xSByi4X8uXW3RUrl DGIisX5iQQugKkK4 SSKcZfFolE77wOUhZVxg Kx5naHpkmVbmXI5mECFh byhoHEAciB5wBYMrfQUy yUupTL4vAJYjidzc l689EkMkFZE3IBPrbPWd H5VmpD8bCtOeIZTvCQFn B4AfhJCfEQddG519CHrl BlM5TDJqnpRoG0Cb LARmkNeuRaC2h4V9Wv9K f2FxzhwmWEL8MCjfRWOn NhChEsHdWfE0H3WkShx8 LSCvfJrsEO8hV4Bj BFXzrlrwemqioIB5AOMc BSOkpC02wIRaYNuoYk5s v7J9m115PQQmUGDkfR09 Xy2omLfdGSGzrNFJ sJ2uefrje5nnmbuuPfCq IUImKVq4KZa3PVOhnLir SjJwIXG9HuA2KUO8uAKs iZ7fxEzwkusmlA1e Oyc+D66yhA6mANC5CMB9 nrwpYIEdjgAtUF74IZ65 Q9PfXnekvLPfmSW+PGRp xhTjzAjcFK5oTiOe x8vsp6SuXMwoK1HzSXGn GKwrJso6BWSaEHB5tYH2 mF0hUZXzPJmyx8K6dJF4 B9XyflAplk4gj9fc CHFxVCezD82vvUXwo6Y9 VZOzkXN6TDWksOdsNxVp cE42Xlt+VCFgbYvdn3Zq Deluz9oit8asiBy6 IjMwJSIgdmFsaWduPSJ0 y0CnWo57I07aZVthNHWo CJHjYFMmLLDgwYveso8j cK7mXf3+PGNvbCB3 rPN9lN8aXHOpZvD1UJmv B005RcGopMQbUewvy2ll w3lyfYf9LqKaCRMsvoDn uYrmJRL1j5HkNe63 D17qBSsnBKLwZTBeAXSc YYQahKjlbo7zyI3nEn4+ LD3br4yeuc83hU19dBN+ QFBlSQK6fXhkCFrt QUXajN9uHMbrXhQ0QFLd CxOqdA01fOBoMJtcQi9w uPshqZsxSJ5sKBHosipx c250AkVav6dpBDOk wXZuGVabMYB5G64pl0X6 WIHnUXQfMXS7aGB7qB2c bGlnbjogbGVmdDsgdmVy rIpoYXdaHJswU395 IHRvcDsnPlBhdGllbnQg ChVmFTs6O5RwJyy3GKRu hMpfJB0bcWQjGHdtSt8i bKmbsAcwLC8bBIWm xkwfj381PbCbx2fvJJAc yUXiCCwcJDP7L87jq2S6 MUEbRMQyRNS7cUC7bJ7l bGlnbjogbGVmdDsg hzFgyCnaCUcnPMxrS667 IHRvcDsnPkJpcnRoIERh iVD8WY72EK18iFDbq8A3 gUY7X9DuLVSevuji rpdyjMX6EAAqOFIycX61 Rb9hcQsnYr7rMKHoLDB3 MJLkkXLbK4PdgT1eIcEx AFOwAJJoU9ItkUIh NHhrV348IBahSlE3APIt nwMxO9MaUMKjqGqzYrB1 a4Z6Eq1CC8D7JF42RV65 wNOcf0Z0rGH9R7Cz VXWpsygesitsqMF8JKKo UGYymT23Sj3kiEbxTr5d FXZeDFP8YMQyfEFeR3Cx uU0lYkTbEVVoMYAv A6SeuSGpDTruC433DGzh VpS1OUKaarVuP0BdGIAd gApkEfV2h3Q4Kv6JQGy9 PB27ZY01qONnv9A7 pOG7W0QpFNLkfoedsfrp aBQ3EZVfZMZbrJ44Ye4d eZnlQd7eCVBvCTY7BCGj nVSoG0EvcM1vWiUn FLPqPSNrE9MxuMSjQMti Z077IRucUhO3NIEggcDq H3AsJBYcqAboVwV7z2N9 Bp4DMUDmWB55JWU8 uUM1VF57XJ70R0AlPzbf dGFibGU+PHRhYmxlIHdp ZHRoPScxMDAlJyBzdHls JS3bHy2dIABsIDUk qYdbbRXrJmOtt1odEUBv AEzmLW7jcNzmV4ZmpGY3 BEOix4q9Bf60N59uG3Mp dXA+JGJuaUN3yII1 gT8nHtQzLsA2TDtzC264 IpErvVCuTukzs8pvj8qd eYp0UtJ5UDStjbDiuBvd DNA7j2YyZp32I00p IHdpZHRoPSIxNSUiIHZh vIttdm0daG8zKh9+PGNv nNB2mBL2xG6dKfYyGtJ8 BCjbL399DeSfwHDk Svdjq8lby4hveSz8KbXz XAErsgIvlObeAGK9k4Lt Hm80Q0FbgIlsw1VtJtl4 ry17fWIbf6D6nAR3 J8ZoWRBljiigsYHhzDze DE3yYIAjdfrcECIgwS0f ODJrW1e3BhItJlV4ZCvq M8PdseE1EKCydUWj ACbzZRQ4C81qn9K6HWWc XLSbIDO9cOU7mM9ejBzo bjogbGVmdDsgdmVydGlj OOnmKDgnY908ANUi zTniYAOvsD8iJIWvyPSd nXuaOL1uCYHkcyqoExRR SUREWSwgSEFOTkFIIEdS GVKWNI40PE16mMAp k8Z3hHK9K6YuHRChltlk zalvuEH0ZDOgVWKoeI13 yAWzVBnzEl6uv4Y3p586 IHVrISYfbV04Zx3p iCfaRWMcwHFSwZ5gedna t8uebozrZhJgIYVzHCh3 HCy6NNGqcWyhHqItJSP0 PmN2CFP3tQXkzF6g gUjdznrhgL6bLsb+MDMv MDkvMjAwMTwvdGQ+PHRk OLB3nBjjOEnnLBZlbF9d EPVjG1s1XxHaJmX1 SOcwB1GoAWVzqutqQe15 yP6dWxMtPrO0VTciT1Ra fsP2WQJafPZdRBrnYIP2 N09ud0X4SJFzIZWs PTO9cFC5qQ2diYlejmnw bGVmdDsgdmVydGljYWwt FHtiM830EGGtfInaAwNn YLlzBRYiSC60JO84 xNBtg4P1nJA4T5UnHMNr thfeblaerBK1WEGtJMVp dQ35fVFfFWocJw2wq4Q2 r591OCYaRFZmxN11 Sf9gyVjtYZAhpAWNhG2k tmxjn3saupnzMqCsXKLw AJa2CYe5IHRfoSwpEgHq HVR4DdJ5QOC4zZSj sN8sqWrbjfiyyT0hQhp+ UfBKAWqOWA16QX57oRNl h8P1nMG7N9WlYLHrdgke xxtmaLJ8FEIvAFEp vR29qUEwZQgxQq3lh5S0 g546CALxFJXaeF65Sw5u sIxhVRNtxSHVcW0cbxqy p0kwugyqNzXqERHr KDd0RDh8PNEohHhlIiOi UEE1AxO7OUZ3kOBitC4c xEegdkbebJ7mVoh+T1A8 T8UdFpqlqSE+PC90 CUZwEU43oRZsnBYwj0lp gJq8NcAhNKZcXYS3bWxc KBlrd6CdIZWrH41tuRWi h9N5JNMxyOeioVTz WmBiuRW2yL9uRDxuosqp x0hlklevArsuh3janz20 nJ12Q26mEObxGSUpVMOp BPDfPVQspLktur5l bS2vKr7+PCJwlLX2nDY3 iF3lYpOuXcQ1RGcfZ943 PtVmuGHcLifsp8shu1do gTo3SfRhPZNwebSi bJuqVGK6s1IzFq91D90j IHdpZHRoPSIyMCUiIHZh dRlfjc3aqN1iGr5+PC9j c9wqxi42bP05bJQ+ GIErFCZ4fQebRDuhVRHm nW1aFDdjUgZ4GGQtAxJs nD23eVEhTOemOu7usCcb bBhdCQ0iVACekdhv c609XmVgu8ziZTOgxTXu IXdgSWQ6W40hy1U7BMBn NEAnYCX5jFD7qB7xzSig bjogbGVmdDsgdmVy pKarUQxjVIllH615VAIx cKizLdHycJYxL3yujyUQ SF3iMafuvGN+PHRkIHN0 aIznYJxiKAGdeK7h YCDyF7e3ObXnAnG9AWza G4GuavA2RKUutHSvMCWl yNHXdP2ruycfw4llemec YzJzZZFhYNs7QSw9 FFNuuWpeAbMdRMK6HdI7 MED5hHStyE4ukPdfpbxp aZ8jCot+RklOOjwvdGQ+ WXSwHCZ7rPeaCZmm YNJsdF3zTJUqN2q0FmOv DmA3OJhiE5HozjS2TXVy wPZyAAWwdUEJbO7gsefa b6vuzasbAjJgNKPl QXp9PDx0YIZvtCuyOqGw FDT8UdO1CEE9aFZfcN0g nLobvtwtlT8eSxy+TVJO OjwvdGQ+PHRkIHN0 sEzoTGukFSOohB0wTQGu A3l9OfNzUxB6DEkjJ5Ea doE6ZUYznHVfRTDvsUVC dR3bbcrty5jcqmxr FdQsWAGuAQy6KHn6PCJr qPoxJvZrRGL5SsA1VNK7 dWBhaH2frHrgnuhjtN2i Oyc+VUJ1ERA5PD14 UV82Y7PtMgxvhBIhqDJ+ PHRhYmxlIHdpZHRoPScx GNRdNlJvvNnkFM7sOj8t ZGVyLWNvbGxhcHNl OiB (more content not included)... Normal [facility] Note- Provideron 04-06-2021 Urgent [...] and Plan Diagnosis Sprain of left foot (IVV76-AQ S93.602A, Discharge, Medical) Plan Condition: Stable. Disposition: [...] she can arrange follow-up as needed. Normal [facility] ED Clinical Summaryon 2020 ED Clinical Summary [facility] ? Urgent Care [address] [place] [id number] Clinical Summary PERSON INFORMATION Name: LEIGH MONTOYA Age: 20 Years Sex: FEMALE : 2000 MRN: Acct#: Visit Reason: UC - Ankle/Foot/Toe Pain or Swelling; LEFT FOOT PAIN Arrival: 04/05/2021 16:12:07 Discharge: 04/05/2021 17:50:00 LOS: 000 01:38 Check In: 04/05/2021 16:12:07 Checkout: 04/05/2021 17:50:00 Address: [facility] [address] [facility] [address] PCP: Flex Wang DO PROVIDER INFORMATION Provider Role Assigned Unassigned Monica Dunn DRIVERS' CASH CLERK Nurse 04/05/2021 16:14:32 Paul Atkins PA-C ED [...] Address: When: JEFF JESUS [address] [address] Business (1) , only if needed With: Address: When: Flex Wang [address] [facility] [place] [address] Business (1) Within 3 to 5 days DIAGNOSIS: Sprain of left foot Patient Understands: Yes - Patient/family/careg iver verbalizes understanding of instructions given Comment: Normal [facility] ED Patient Summaryon 021 ED Patient Summary [facility] ? Urgent Care [address] [place] [address] [id number] PATIENT DISCHARGE INSTRUCTIONS Patient Information Name: LEIGH MONTOYA Age: 20 Years Date of : 2000 Reason For Visit: UC - Ankle/Foot/Toe Pain or Swelling; LEFT FOOT PAIN Arrival Time: 04/05/2021 16:12:07 Primary Care Physician: Flex Wang DO Attending Physician: Nirav Nunez Comment: Patient Education With: Address: When: EJFF JESUS [address] [address] Business (1) , only if needed With: Address: When: Flex Wang [address] [facility] [place] [place] [address] Business (1) Within 3 to [...] ? As (more content not included)... Normal [facility] Recordon 021 Urgent Care Record [facility] ? Urgent Care [address] [facility] [place] [address] PATIENT DISCHARGE INSTRUCTIONS Patient Information Name: LEIGH MONTOYA Age: 20 Years Date of : 2000 Reason For Visit: UC - Ankle/Foot/Toe Pain or Swelling; LEFT FOOT PAIN Arrival Time: 04/05/2021 16:12:07 Primary Care Physician: Flex Wang DO Attending Physician: Nirav Nunez Comment: Visit Diagnosis: Diagnoses This Visit Sprain of left foot (S93.602A) UC - Ankle/Foot/Toe Pain or Swelling ([id number]) If you received any narcotics, sedation, or [...] any legal documents With: Address: When: [address] [address] Business (1) , only if needed With: Address: When: Flex Wang [address] [facility], [place] [address] Business (1) Within 3 to 5 days Medication Information: The exam and treatment you received today in the [facility] were for an urgent problem and are not intended as complete care. It is important for you to follow up with a doctor, nurse practitioner, or physician?s doctor assistant for ongoing care. If your symptoms [...] so we can reach you if necessary. [facility] has provided you with a complete list of medications post discharge. Please inform your armament aircraft mechanic/provider of your visit and for further instruction [...] no br (more content not included)... [facility] XR Foot Complete Lefton 03-20 XR [...] Fernandez 04/06/21 8:27 am Technologist: NELIDA [facility] Coding Summaryon 08-01-2020 Coding Summary HTMLBase 64 JcvxkblnSHm1lKr+PGhl YWQ+QJ7OCWUxC63omOPr tF1VY3xYJY4OQGEFZRAL LC8TPB8jvKM2UUjcS2Zs biAv KhpwsDJkNQ60JNm6UFP2 mVskRHcxaL8eoXDrQ6y6 QoAcTG67fI18SUodXWFz SwK8DoJhpwaumHIt Q5xsVzYboJGpKue+PHRh YmxlIHdpZHRoPScxMDAl ZfVjlYvfPL3ySu4bYGKg LWNvbGxhcHNlOiBj a1twSMMjDAmhIA7spAmo U5KxuKN5EMOjb5s1Zk10 dHI+KPCkTOJ7dLfhFVdq v863DdQle0xdCOC4 dTSqDHgcEHJ6E85ms7E2 CGUqDGVuWCW3rDI2pR8a rPghddyoL7ExaUByRqR3 YSG2wCLzrJ2paNfc wukdgB8qMkx+S15JXA3Y MDNSKT2KSzj6T3TsHvep dHI+FC21LHOkQX21tZXn dWOxg3guxBf2WlWv QPOgLVW5aSarCKxry9Ag LGYnU92riEZet3U3SVDx eLybfJXpXlQykWN4uZ5m RPwjvocfr7azajsy Rspga7xmdv54eU03F02c LHxzUQAxMAE7OEPjEAGr oEgjqb2maG1tPr8+IDxj x9xmb9vboVs6EqBm TXOmtpTtwWqhALE5p8Ob Rj70E8PvrFodw9ZnCsb6 tv24oNTec5Y8mGK3ZKyg XHRwaW6kCFllKlD2 CJFlYpTipV29cUIdMBsn Aa8peMmpqLkwCJ7nEBBj acrcYHQdxS9jWRRnxCWv aBftJG6dVWHqcusa d856PdAmPHW4TPQycSNi K8KlpE3bSvOwDDJbXHXp K9TqqVUbHCqlN025FGfd SnZ3JNPemhNrK9Nr UNBtiVziXsV9x3U9Xq7R c0WweugrYFV3IFytYUXd LbA1QxMsDeG7R1JlNqf0 BLXsgRczFN2oQ0Qi CRWapuzamdmczNC3VFVg CUFagM34dBChUAhiHy8f g8H6v602ERLlMUJomC38 Ki5fhEthLCJfvDAZ wC0xogpeb2btkvfdTmZv SXZoMJv4ZBr7SRKpqKfs YnNwVAG2KdT2HMP5sNZs aP1heWjgwoqjuQ2g Oyc+A41voN5wRSH9YPU1 ytwnETYughEuOB30FH82 M2KsAlgkwBWxtZM+PGRp tmXarFgjCX8cGxNk g3uhd8OkTSicR0ZmBMAl XMlvWab6ZIGsGIO4gJD3 fX4mOCJtOOxwg3J8jAE7 M5DvxvKxjv4yk4ki CPZuJRneC39leGLhe9K3 FKZftKT2VHTarDmcCkNt yG62Arm+QNGviZdyh5Au Mpgfa0msu2mbuUg6 IjMwJSIgdmFsaWduPSJ0 e7IjEo06L83lHAveQRQj HLZcOTXcFADkvMhvpe1l hY5kTx9+PGNvbCB3 tWM0wM8wGZEkTtI1EQrs X412VhVuhFPeItvds9nt i5oiaHu3QpHlIKOlkyMh rSxiUNS5f4DwJh52 C00pXOseKNQePFLiDEAh GZAqiPosbz6ruD4aSj5+ VA5fb0wllq38aY06cOT+ FOIwBEL8jTeqFYgi VUQzfN1fKKabJxP7RDEd KtAfjY79rYNyMXswHe6z zGszsWvsYT8hVVXqfvvc x571BcGey2vqHZBm sUXeRBamLLM8H02tr1I8 KKNbTFQtMRU5aQC8iT5a bGlnbjogbGVmdDsgdmVy xMnpPIiiCCfuV662 IHRvcDsnPlBhdGllbnQg SbUcIYe0H3VcWjg1WPPw qQegCD0olVHwATmgHu3c vSczkYpoUO1gXMXj doqdp159OhXts6peZHRp vTPuAHpdTAQ3M73ta0I5 RBZsKQHaWLQ2aLU4tN2k bGlnbjogbGVmdDsg yvFatSrgMClhSIqzI098 IHRvcDsnPkJpcnRoIERh dTK0WO22YQ72rWSwv0W5 wVB6K1DzYFWektbt kgwkrHL7SDIrRDDcbY06 Kf3kpYvfDx1hFIQuPHM0 KDBcmSBlU3LogC5tCwUn FSTsVKXuQ0RdyNRy BClcW773PBocUfI3AIFu tuVwE3VfFDInyKavOpU4 o6H4Vo5MW4L2FE46IO71 yKXxn2L6eJZ2S3Un XNYtkwwhqqzrkBG4CGIi SNJypR24Pa9liQvwZc8l AIBgSOD2YGVmjOFwX2Mo cA5rLoFhZDDsNXWd J0ExxHCjNSzlY981WPrh ToI0WZOijhAwC0BuKHSo iAxrHdJ1j0I7Yx3XORk1 FS34LG14mTEph9V3 pXF9N9ZuTNHiitglqzbi eAM4YTVgBNNelG56Zr9j eRaiXd6eXPMbJGM6DDRm gADyN4VnyY2vEnOu LDVeDTUhM6XejWBiGUzd T477VZemCpW1XNQxarFm C6KlCFFzkWfmYxX3v5Q7 Uh9OSARdSP30CDR3 wPK1TX85QY74Y3WeEcxp dGFibGU+PHRhYmxlIHdp ZHRoPScxMDAlJyBzdHls TR6yAg8iFLFeOQVb bRndaYWgFkEcy2dbDDYq OYmpUE1wjLkgT1WoqFY2 AKNmt0s8Dk73H83tK8Ak dXA+ZNZpdJD8nMS0 kE3xJcGsWeH9KCfwY159 XjFxeUKvAinny1xcu1cd zHq4QnH6VEJzyoCpqDee QMC7s2MgBa61D67y IHdpZHRoPSIxNSUiIHZh rVvgbg4qiW2ePa8+PGNv mCL3oNK1oQ4lVpQoVoM9 ZPwnK428JkMsjBKz Fgaqv0vfh0xtlQp7QdJr FHCvnaBtiVvfENS7v0Ei Xi20T1GcfPyzn3VhNhm6 ki60yFCtv3S0iLH5 H1FtKJJorfpreDDwaMpf NX8fDGQtdbyuSJNalU4q KTMlX9u0FfHjOiJ4YTnm T8FfqdC9YCZtlHYp LIzvDGN6W65ug4T7QWAt QAKnKOW9pAX5wC9ayHky bjogbGVmdDsgdmVydGlj GIenVPqvQ027QKIf vJvlITQovD9pOUXstHAp cXtjKV6ySUVaabvdZhYW SUREWSwgSEFOTkFIIEdS EHFQOL01HM57lNFy n1M7dXW1U0RiYAQtamjr dvcdeTM5DBDyKMYpqV05 vTOqHQdvJw9xe7T8w314 GIGqBSUirF19Ak1i tNesHHLabQGUgS1rdlxv q8hyknpyEfLrPMAgYQz8 DVa6ECVraPamFuUpMFE3 LeP7EFA0rYKdtV2g iGesusrijW5xYhp+MDMv MDkvMjAwMTwvdGQ+PHRk QZA3lXwoOIryCJKppU9h IRTlM7f7OkQdAlD3 MKpeT8LnXUXwneivYh37 iX2fIeQwIdJ6UPltY3Sc nmC6EQSkxVNeCXlkKPZ9 H03qk9X7TPBlGSAv NSM1yYZ3eT4frRchfsqw bGVmdDsgdmVydGljYWwt RVbdT594JXTteOhoSdAq MMivXDFqOL91JB43 nRWnm9J9fMO0P2OsJOTw tymxzewvzGX3IQHjHGYj aU87xHFaCTeuGl6fy5R7 d261ZZMsSTLynI26 Ox5qdBhwVXParWYXdY8e tubiz6rzsvnmLpMuNHBb IAp7AGg5SXSgiJfrUsJj LDT4LnO3AUF7oVGm tA6xhLclzvglkK7vAkh+ NvEQHEtVIQ10ER92gDOl c4Z8aVH4I6MdIYIvgnqs wxqyyHD3KEXqHSJh gJ32hSXfUEstKk2xo8H2 w778JSVdDGLfqN86Cd3z xQaaTXIfqMWIdZ2ygtqw y6fntstuQwGbJNMv OBn8SZy5DFXonMbqMfXs JUF5SeX7CRL0fPMczH4i wWwojcdmsY9xUaz+T1A8 V0ObMjqfzFA+PC90 YPNhXT23kGEfvKAzg4db uEe1ZtRoSJFeBGZ6jUbi FJupw1KvJUOiQ02tuOMb w1H1DZAajIlhyBTi KkAmwEA6dU1iGHqduukf q8zabzyyDedjj4myzb57 uH60L70mCCfiFODuMCRs EOAqWAUozGunsb9r yN3rSm7+OAPvjWE0uPX2 sJ6eDaEmQfF8FCsgA838 CiClpJDnLdjzw9fju4qa hNn7HmZzFLFgerQh sWknKPB1y2OiXf22B38u IHdpZHRoPSIyMCUiIHZh vVfofm1kdT1tNb7+PC9j f3lhlq43hQ62vVG+ QPEoEGX0eClpSHlxZCPt mK8zAUkrIvQ0NIUzQoRv gV26lJWhRJsnZu1pmXxn aEunYE3zESAifwbo i634IyJbv2ttAZBymUOb DMmmBRI0E55ur7T9JHQx WMKyWOE3gST9sS9jlBnk bjogbGVmdDsgdmVy yDtfLAbgGCdlX304MIRn rZrqYwHfgQYlH5fglaRM ST2qSrxzrMR+PHRkIHN0 aXujJXtsYHUysC8f RIOxW6p6YoCiTaG5HDtp F6BowcV0TRCudOYzRFWb hOIEyO5mignia6vmisvf LjAeOYVbAKn1UJx1 NTRntBmjKdOeDPS5CeD9 ADB2yYSogS2tuJyzismv hE5nIkc+RklOOjwvdGQ+ YJMhDLC9wExrHXop WFBivK4eLLVmG1w6PdAf ViR7MAnoE5HgerT5SEUv sILtICRenKGAlK5xxmot p9rzqwusPyNvJQJa SWl3AOt8IYGwpCodFfQx TIM6PjZ6HZH2vRYqiF4w lGucphnldE3kNgw+TVJO OjwvdGQ+PHRkIHN0 tTmeMPmuKGQhsK3wFKCs M8t9DcCuGpJ9QUiiI7Vt bwV9JDCwoCKlBZHnmRVY aL5wvnzxe8gynvtd BsKqWEKcCNj8ZHm6OYTw vAfqJwDzWCN6QdK0GJN6 nHIswI1hzMdvmtuvjX2g Oyc+CDV8WRP4HT46 AN88I3VpQwvtjSFiqLP+ PHRhYmxlIHdpZHRoPScx ZJUtWzWqwUrtNJ8lAg9t ZGVyLWNvbGxhcHNl OiB (more content not included)... Normal [facility] C Throaton 07-31-2020 C Throat Ordered by Discern. Normal throat regi isolated No pathogens isolated Normal [facility] Comment on above: Performed By: #### [id number] ####[facility] (DEFAULT)[address] [place] [address] ED Clinical Summaryon 2020 ED Clinical Summary [facility] ? Urgent Care [address] [place] [address] Clinical Summary PERSON INFORMATION Name: LEIGH MONTOYA Age: 20 Years Sex: FEMALE : 2000 MRN: Acct#: Visit Reason: UC - Sore Throat; THROAT PAIN Arrival: 07/29/2020 09:44:22 Discharge: 07/29/2020 10:23:00 LOS: 000 00:39 Check In: 07/29/2020 09:44:22 Checkout: 07/29/2020 10:23:00 Address: [address] [place] [id number] PCP: Flex Wang DO PROVIDER INFORMATION Provider [...] Negative . Impression and Plan Diagnosis Pharyngitis (JLW84-OF J02.9, Discharge, Medical) Plan Condition: Stable. Disposition: Discharged: Time 07/29/2020 10:17:00 (more content not included)... Normal [facility] ED Note - Provideron 021 ED [...] Negative . Impression and Plan Diagnosis Pharyngitis ([id number] J02.9, Discharge, Medical) Plan Condition: Stable. Disposition: Discharged: Time 07/29/2020 10:17:00, to home. Patient was given the following educational materials: Pharyngitis, Fyot-vl-Ekzo, Pharyngitis, Ypnh-rx-Pqvp. Follow up with: Flex Wang Within 2 [...] 07/29/2020 10:20 EST] Patricia Meeks PA-C Normal [facility] ED Patient Summaryon 021 ED Patient Summary [facility] ? Urgent Care [address] [facility] [place], [place] [id number] PATIENT DISCHARGE INSTRUCTIONS Patient Information Name: LEIGH MONTOYA Age: 20 Years Date of : 2000 Reason For Visit: UC - Sore Throat; THROAT PAIN Arrival Time: 07/29/2020 09:44:22 Primary Care Physician: Flex Wang DO Attending Physician: Patricia Meeks PA-C Comment: Patient Education With: Address: When: Flex Wang [address] [facility], [place] [place] [address] Business (1) Within 2 to [...] Follow these instructions at home: ? Take xyol-tgr-jbetgqf and prescription medicines only as told by [...] 10/22/2008 Document Revised: 04/18/2018 Document Reviewed: 06/11/2017 [place] Patient Education ? 2020 [employer]uki (Vozero/Gengibre). Medication Information: The exam and treatment you received today in the [facility] Emergency Department were for an urgent problem and are not intended as complete care. It is important for you to follow up with a doctor, nurse practitioner, or physician?s doctor assistant for ongoing care. If your symptoms [...] so we can reach you if necessary. [facility] Emergency Department has provided you with a complete list of medications post discharge. 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 Normal [facility] Strep Aon 07-29-2020 Strep procedure control Pass Normal [facility] Comment on above: Performed By: #### 6 [id number] ####[facility] (DEFAULT)[address] [place] [address] Streptococcus A Negative Normal Negative [facility] Comment on above: Performed By: #### 6 [id number] ####[facility] (DEFAULT)[address] [place] [address] Urgent Care Recordon 021 Urgent Care Record [facility] ? Urgent Care [address] [place] [address] PATIENT DISCHARGE INSTRUCTIONS Patient Information Name: LEIGH MONTOYA Age: 20 Years Date of : 2000 Reason For Visit: UC - Sore Throat; THROAT PAIN Arrival Time: 07/29/2020 09:44:22 Primary Care Physician: Flex Wang DO Attending Physician: Patricia Meeks PA-C Comment: Visit Diagnosis: Diagnoses This Visit Pharyngitis (J02.9) UC - Sore Throat ([id number]) If you received any narcotics, sedation, or [...] Address: When: Flex Wang [address] [facility], [address] [place] [id number] Business (1) Within 2 to 4 days [...] and treatment you received today in the [facility] Urgent Care were for an urgent problem and are not intended as complete care. It is important for you to follow up with a doctor, nurse practitioner, or physician?s doctor assistant for ongoing care. If your symptoms [...] so we can reach you if necessary. [facility] has provided you with a complete list of medications post discharge. Please inform your armament aircraft mechanic/provider of your visit and for further instruction [...] Follow these instructions at home: ? Take kxob-wju-ohsyapq and prescription medicines only as told by [...] help righ (more content not included)... Normal [facility] Coding Summaryon 06-27-2020 Coding Summary CODING DATE: 06/27/2020 [facility] STATUS: Home PAYOR: Commercial Insurance ADMIT [...] Padilla Date Saved: 06/27/2020 12:37 pm Normal [facility] ED Clinical Summaryon 2020 ED Clinical Summary [facility] ? Urgent Care [address] [place] [address] Clinical Summary PERSON INFORMATION Name: LEIGH MONTOYA Age: 19 Years Sex: FEMALE : 2000 MRN: Acct#: Visit Reason: UC - Ear Pain; UC - Ear Pain; RIGHT EAR PAIN Arrival: 06/18/2020 15:00:59 Discharge: 06/18/2020 15:27:00 LOS: 000 00:27 Check In: 06/18/2020 15:00:59 Checkout: 06/18/2020 15:27:00 Address: [address] [place] [address] PCP: Flex Wang DO PROVIDER INFORMATION Provider Role Assigned Unassigned Monica Dunn DRIVERS' CASH CLERK Nurse 06/18/2020 15:03:15 Marv Shannon ED PA 06/18/2020 15:03:24 VITALS INFORMATION Vital Sign Triage Latest Temperature Tympanic Temperature Temporal Artery Pulse Rate O2 Sat 98 % 98 % Respiratory Rate Blood Pressure /78 mmHg /78 mmHg MEDICAL INFORMATION Medications Given: Allergy Information: sulfamethoxazole; ibuprofen PHYSICIAN DOCUMENTATION DISCHARGE INFORMATION: Discharge Disposition: Home Discharge Location: Home PATIENT EDUCATION INFORMATION Instructions: Otitis Media, Adult, Ilta-hl-Jvcr Follow-Up: With: Address: When: Flex Wang [address] [facility] [facility] [address] [place], [place] [id number] Business (1) Comments: Begin on the amoxicillin-clavulan ate antibiotic take every 12 hours for the next 10 days Follow-up with your primary care physician in 3-5 days for reevaluation, sooner if any worsening symptoms DIAGNOSIS: Otitis media, right Patient Understands: Yes - Patient/family/careg iver verbalizes understanding of instructions given Comment: Normal [facility] ED Patient Summaryon 021 ED Patient Summary [facility] ? Urgent Care [address] [facility] [place] [address] PATIENT DISCHARGE INSTRUCTIONS Patient Information Name: LEIGH MONTOYA Age: 19 Years Date of : 2000 Reason For Visit: UC - Ear Pain; UC - Ear Pain; RIGHT EAR PAIN Arrival Time: 06/18/2020 15:00:59 Primary Care Physician: Flex Wang DO Attending Physician: Marv Shannon Comment: Patient Education With: Address: When: Flex Wang [address] [facility], [address] [place], [place] [phone] Business (1) Comments: Begin on the amoxicillin-clavulan [...] Follow these instructions at home: ? Take jmgp-crb-cwfhxtd and prescription medicines only as told by [...] 10/22/2008 Document Revised: 04/18/2018 Document Reviewed: 05/27/2017 [employer] Patient Education ? 2019 [employer]uki (Vozero/Gengibre). Medication Information: The exam and treatment you received today in the [facility] Emergency Department were for an urgent problem and are not intended as complete care. It is important for you to follow up with a doctor, nurse practitioner, or physician?s doctor assistant for ongoing care. If your symptoms [...] so we can reach you if necessary. [facility] Emergency Department has provided you with a complete list of medications post discharge. Please inform your armament aircraft mechanic/provider of your visit and for further instruction on these medications. Any specific questions regarding your chronic medications and dosages should be discussed with your primary care physician(s) and/or pharmacist. New Medications [facility], [address] [place], [place] [id number], [phone] amoxicillin-clavulan ate (Augmentin 500 mg-125 mg oral [...] media, right (H66.91) UC - Ear Pain ([id number]) UC - Ear Pain ([id number]) If you received any narcotics, sedation, or any other medication that causes drowsiness for the next 24 hours, unless otherwise directed: ? Do not drive a car. ? Do not operate machinery such as power tools, lawn mowers, drills, sewing machines, or stoves ? Avoid alcoholic beverages and drugs for allergies, n (more content not included)... Normal [facility] Urgent Care Note- Provideron 06-18-2020 Urgent [...] Impression and Plan Diagnosis Otitis media, right (UWZ64-AM H66.91, Discharge, Medical) Plan Prescriptions: [facility] prescriptions Pharmacy: Augmentin 500 mg-125 mg oral tablet (Prescribe): 1 tab(s), PO, q12hr, for 10 day(s), 20 tab(s), 0 Refill(s). Patient was given the following educational materials: Otitis Media, Adult, Nnni-ff-Hlqc. Follow up with: Flex Wang Begin on the amoxicillin-clavulan ate antibiotic take every 12 hours for the next 10 days Follow-up with your primary care physician in 3-5 days for reevaluation, sooner if any worsening symptoms. Counseled: Patient, Regarding diagnosis, Regarding diagnostic results, Regarding treatment plan, Regarding prescription, Patient indicated understanding of instructions. Normal [facility] Urgent Care Recordon 021 Urgent Care Record [facility] ? Urgent Care [address] [place] [address] PATIENT DISCHARGE INSTRUCTIONS Patient Information Name: LEIGH MONTOYA Age: 19 Years Date of : 2000 Reason For Visit: UC - Ear Pain; UC - Ear Pain; RIGHT EAR PAIN Arrival Time: 06/18/2020 15:00:59 Primary Care Physician: Flex Wang DO Attending Physician: Marv Shannon Comment: Visit Diagnosis: Diagnoses This Visit Otitis media, right (H66.91) UC - Ear Pain ([id number]) UC - Ear Pain ([id number]) If you received any narcotics, sedation, or [...] With: Address: When: Flex Wang [address] [facility] [place] [address] [place] [address] Business (1) Comments: Begin on the amoxicillin-clavulan ate antibiotic take every 12 hours for the next 10 days Follow-up with your primary care physician in 3-5 days for reevaluation, sooner if any worsening symptoms Medication Information: The exam and treatment you received today in the [facility] Urgent Care were for an urgent problem and are not intended as complete care. It is important for you to follow up with a doctor, nurse practitioner, or physician?s doctor assistant for ongoing care. If your symptoms [...] so we can reach you if necessary. [facility] has provided you with a complete list of medications post discharge. Please inform your armament aircraft mechanic/provider of your visit and for further instruction on these medications. Any specific questions regarding your chronic medications and dosages should be discussed with your primary care physician(s) and/or pharmacist. New Medications [facility], [address] [facility] [address] [place], [place] [id number], [phone] amoxicillin-clavulan ate (Augmentin 500 mg-125 mg oral [...] Follow these instructions at home: ? Take thyj-blk-wptkldj and prescription medicines only as told by [...] ? You (more content not included)... [facility] Consent Formson 04-28-2020 Consent Forms [id number] #1.00[facility] Provider Orderson 04-28-2020 Provider Orders [id number] #1.00[facility] Coding Summaryon 04-25-2020 Coding Summary CODING DATE: 04/25/2020 [facility] STATUS: Home PAYOR: Commercial Insurance ADMIT [...] Padilla Date Saved: 04/25/2020 02:38 pm [facility] .QC Respiratory Panel 2.1 (B ioFire)on 04-22-2020 Internal Control-Resp Panel 2.1(BioFire) Pass [facility] Comment on above: Order Comment: Order ed by Holley.[[id number]] Performed By: #### 6 [id number], [id number] ####[facility] (DEFAULT)[address] [place] [address] Respiratory Panel 2.1 (BioFi re)on 04-22-2020 Adenovirus -BioFire Not detected Normal Not Detected [facility] Comment on above: Performed By: #### 6 [id number], [id number] ####[facility] (DEFAULT)[address] [place] [address] Bordetella parapertussis -BioFire Not detected Normal Not Detected [facility] Comment on above: Performed By: #### 6 [id number], [id number] ####[facility] (DEFAULT)[address] [place] [address] Bordetella pertussis -BioFire Not detected Normal Not Detected [facility] Comment on above: Performed By: #### 6 [id number], [id number] ####[facility] (DEFAULT)[address] [place] [address] Chlamydia pneumoniae -BioFire Not detected Normal Not Detected [facility] Comment on above: Performed By: #### 6 [id number], [id number] ####[facility] (DEFAULT)[address] [place] [address] Coronavirus 229E (Not COVID-19) -BioFire Not detected Normal Not Detected [facility] Comment on above: Performed By: #### 6 [id number], [id number] ####[facility] (DEFAULT)[address] [place] [address] Coronavirus HKU1 (Not COVID-19) -BioFire Not detected Normal Not Detected [facility] Comment on above: Performed By: #### 6 [id number], [id number] ####[facility] (DEFAULT)[address] [place] [address] Coronavirus NL63 (Not COVID-19) -BioFire Not detected Normal Not Detected [facility] Comment on above: Performed By: #### 6 [id number], [id number] ####[facility] (DEFAULT)[address] [place] [address] Coronavirus OC43 (Not COVID-19) -BioFire Not detected Normal Not Detected [facility] Comment on above: Performed By: #### 6 [id number], [id number] ####[facility] (DEFAULT)[address] [place] [address] Employed in healthcare? No Invalid Interpretation Code [facility] Comment on above: Performed By: #### 6 [id number], [id number] ####[facility] (DEFAULT)[address] [place] [address] Group care resident? No Invalid Interpretation Code [facility] Comment on above: Performed By: #### 6 [id number], [id number] ####[facility] (DEFAULT)[address] [place] [address] Human Metapneumovirus -BioFire Not detected Normal Not Detected [facility] Comment on above: Performed By: #### 6 [id number], [id number] ####[facility] (DEFAULT)[address] [place] [address] Human Rhinovirus/Enterovir us -BioFire Not detected Normal Not Detected [facility] Comment on above: Performed By: #### 6 [id number], [id number] ####[facility] (DEFAULT)[address] [place] [address] In ICU? No Invalid Interpretation Code [facility] Comment on above: Performed By: #### 6 [id number], [id number] ####[facility] (DEFAULT)[address] [place] [address] Influenza A (no subtype) -BioFire Not detected Normal Not Detected [facility] Comment on above: Performed By: #### 6 [id number], [id number] ####[facility] (DEFAULT)[address] [place] [address] Influenza A -BioFire Not detected Normal Not Detected [facility] Comment on above: Performed By: #### 6 [id number], [id number] ####[facility] (DEFAULT)[address] [place] [address] Influenza A H1 -BioFire Not detected Normal Not Detected [facility] Comment on above: Performed By: #### 6 [id number], [id number] ####[facility] (DEFAULT)[address] [place] [address] Influenza A H1-2009 -BioFire Not detected Normal Not Detected [facility] Comment on above: Performed By: #### 6 [id number], [id number] ####[facility] (DEFAULT)[address] [place] [address] Influenza A H3 -BioFire Not detected Normal Not Detected [facility] Comment on above: Performed By: #### 6 [id number], [id number] ####[facility] (DEFAULT)[address] [place] [address] Influenza B -BioFire Not detected Normal Not Detected [facility] Comment on above: Performed By: #### 6 [id number], [id number] ####[facility] (DEFAULT)[address] [place] [address] Mycoplasma pneumoniae -BioFire Not detected Normal Not Detected [facility] Comment on above: Performed By: #### 6 [id number], [id number] ####[facility] (DEFAULT)[address] [place] [address] Parainfluenza Virus 1 -BioFire Not detected Normal Not Detected [facility] Comment on above: Performed By: #### 6 [id number], [id number] ####[facility] (DEFAULT)[address] [place] [address] Parainfluenza Virus 2 -BioFire Not detected Normal Not Detected [facility] Comment on above: Performed By: #### 6 [id number], [id number] ####[facility] (DEFAULT)[address] [place] [address] Parainfluenza Virus 3 -BioFire Not detected Normal Not Detected [facility] Comment on above: Performed By: #### 6 [id number], [id number] ####[facility] (DEFAULT)[address] [place] [address] Parainfluenza Virus 4 -BioFire Not detected Normal Not Detected [facility] Comment on above: Performed By: #### 6 [id number], [id number] ####[facility] (DEFAULT)[address] [place] [address] status? Not Invalid Interpretation Code [facility] Comment on above: Performed By: #### 6 [id number], [id number] ####[facility] (DEFAULT)[address] [place] [address] Respiratory Syncytial Virus -BioFire Not detected Normal Not Detected [facility] Comment on above: Performed By: #### 6 [id number], [id number] ####[facility] (DEFAULT)[address] [place] [address] SARS-CoV-2 (COVID-19) RNA OZZIE+probe Ql (Unsp spec) Not detected Normal Not Detected [facility] Comment on above: Performed By: #### 6 [id number], [id number] ####[facility] (DEFAULT)[address] [place] [address] SARS-CoV-2 (COVID-19) RNA OZZIE+probe Ql (Unsp spec) No Invalid Interpretation Code [facility] Comment on above: Performed By: #### 6 [id number], [id number] ####[facility] (DEFAULT)[address] [place] [address] Symptomatic as defined by CDC? No Invalid Interpretation Code [facility] Comment on above: Performed By: #### 6 [id number], [id number] ####[facility] (DEFAULT)[address] [place] [address] Vital Signs Date Time Vital Sign Value Performing Clinician Facility 12-06-2021 16:30-0400 Body height 160.02 cm Ezequiel Melo Other [facility] Other 12-06-2021 16:30-0400 Body mass index (BMI) [Ratio] 41.62 kg/m2 Ezequiel Melo Other [facility] Other 12-06-2021 16:30-0400 Body weight 106.6 kg Ezequiel Melo Other [facility] Other 10-11-2021 14:45-0400 Body height 160.02 cm Ezequiel Melo Other [facility] Other 10-11-2021 14:45-0400 Body mass index (BMI) [Ratio] 41.98 kg/m2 Ezequiel Lorie Other [facility] Other 10-11-2021 14:45-0400 Body weight 107.5 kg Ezequiel Melo Other [facility] Other 10-11-2021 14:45-0400 Diastolic blood pressure 79 mm[Hg] Ezequiel Lorie Other [facility] Other 10-11-2021 14:45-0400 Systolic blood pressure 128 mm[Hg] Ezequiel Melo Other [facility] Other Encounters Encounter Date Encounter Type Care [...] 12-06-2021 End: 12-06-2021 ambulatory Ezequiel Melo Other [facility] Other Start: 12-06-2021 Patient encounter procedure Ezequiel Melo [facility] Start: 10-11-2021 End: 10-11-2021 ambulatory Ezequiel Angiejessie Other [facility] Other Start: 10-11-2021 [facility] visit new patient Ezequiel Adamsjessie [facility] Procedures Date Procedure Procedure Detail Performing Clinician Start: 02-19-2024 ALL CBC WITH AUTO DIFF Yasmine Fernandezzio DO Work Phone: Plan of Treatment Date Care Activity Detail Author Start: 02-26-2024 End: 02-26-2024 Patient encounter procedure 02/26/2024 3:30 PM EDT Routine [facility] [address] [place] [phone] Kamryn Hawley PA [address] [place] [address] [facility] Start: 02-19-2024 End: 02-19-2024 Patient encounter procedure 02/19/2024 3:40 PM EDT Routine [facility] [address] [place] [phone] Yasmine Soni, DO [address] [place], [place] [id number] [facility] Payers Date Payer Category Payer Unknown FRONTPATH FRONTP ATH [id number] 2023-Present [phone] [address] [place] [address] [id number] 2023 Unknown [id number] 2000 Unknown [id number] [id number] 2000 Unknown [id number] [id number] 2000 Unknown [id number] 2.16.840.1.255843.3.579.2.1259 2000 Unknown [id number] 2.16.840.1.857844.3.579.2.1259 2000 Unknown [id number] 2.16.840.1.001482.3.579.2.1259 2000 Unknown [id number] 2.16.840.1.273360.3.579.2.9 2000 Unknown [id number] 2.16.840.1.398597.3.579.2.1259 2000 Unknown [id number] 2.16.840.1.157202.3.579.2.9 2000 Unknown [id number] 2.16.840.1.633364.3.579.2.9 2000 Unknown [id number] 2.16.840.1.802863.3.579.2.9 1959 Unknown [id number] Medicaid [id number] [id number] Social History Date Type Detail Facility Start: 08-12-[address] [facility] Other Start: 11-07-2023 Tobacco smoking status NHIS [...] orientation Choose not to disclose [facility] Evaluation note 12-06-2021 Note Date & Type Note Facility 12-06-2021 Evaluation note Encounter Date Diagnosis Assessment Notes Nov, Dyspepsia (ICD-10 - K30) patient states does have some bloating in the left center she does have pain noted. patient is advised that we can start levsin and refer to education officer for food testing. [facility] Other Evaluation note 10-11-2021 Note Date & Type Note Facility 10-11-2021 Evaluation note Encounter Date Diagnosis Assessment Notes September, Bloating (ICD-10 - R14.0) September, Dyspepsia (ICD-10 - K30) September, Abdominal pain (ICD-10 - R10.9) [facility] Other Clinical Note 04-05-2021 Note Date & [...] This may take several hours. ? Take ezfj-tee-fboyymt and prescription medicines only as told by your health care provider. ? When you can walk without pain, wear supportive shoes that have stiff soles. Do not wear flip-flops, and do not walk barefoot. ? Keep all follow-up visits as told by your health care provider. This is important. Contact a health care provide (more content not included)... [facility] Clinical Note 07-29-2020 Note Date & Type Note Facility 07-29-2020 Note Patient Education Ma terials Follows:Disease Pharyngitis Pharyngitis is a sore throat (pharynx). This is when there is redness, pain, and swelling in your throat. Most of the time, this condition gets better on its own. In some cases, you may need medicine. Follow these instructions at home: ? Take ouey-ktt-mpumayt and prescription medicines only as told by [...] Reviewed: 06/11/2017 Elsevier Patient Education ? 2019 [employer] (Vozero/Gengibre)[facility] Clinical Note 06-18-2020 Note Date & Type Note Facility 06-18-2020 Note Patient Education Ma terials Follows: Otitis Media, Adult Otitis media means that the middle ear is red and swollen (inflamed) and full of fluid. The condition usually goes away on its own. Follow these instructions at home: ? Take fknj-apj-biwraov and prescription medicines only as told by [...] Reviewed: 05/27/2017 Elsevier Patient Education ? 2019 [place] [facility] Clinical Note 04-22-2020 Note Date & Type Note Facility 04-22-2020 Note Nasal swab performed without complication. Patient tolerated well. Education given. Patient verbalized understanding. [Electronically Signed on: 04/22/2020 15:05 EST] Miri Nuñez RN [Verified on: 04/22/2020 15:05 EST] Miri Nuñez RN [facility] History general Narrative - Reported Note Date & Type Note Facility History general Narrative - Reported Type Medical History PCOS Medical History Endometriosis Surgical History laparoscopy - endometriosis [facility] Other Reason for referral (narrative) Note Date [...] is able to get in before this. [facility] Other Reason for visit Narrative Note Date & Type Note Facility Reason for visit Narrative PATIENT HERE AT THE REQUEST OF DR. SONI FOR EVALUATION & TREATMENT OF BLOATING [facility] Other Reason for visit Narrative Note Date [...] of the side effects that were listed. [facility] Other Summary Purpose Family History No Family History Records FoundNo Family History Records FoundNo Family History Records FoundNo Family History Records Found Advance Directives No Advanced Directives Records FoundNo Advanced Directives Records FoundNo Advanced Directives Records FoundNo Advanced Directives Records Found Additional Source Comments INFORMATION SOURCE (unrecogn ized section and content) DATE CREATED AUTHOR 04/21/2021 [facility] DATE CREATED AUTHOR AUTHOR'S ORGANIZ ATION 11/08/2021 [facility] DATE CREATED AUTHOR AUTHOR'S ORGANIZ ATION 09/06/2022 [facility] DATE CREATED AUTHOR AUTHOR'S ORGANIZ ATION 01/31/2024 [facility] EPIC Care Teams (unrecognized sec tion and content) Gang Miner Relationship Specialty Start Date End Date Flex Wang MD [address] [place], [place] [id number] PCP - General Family Medicine 10/30/22 FOR [...] BE BASED ON THE PRIMARY CLINICAL RECORDS. [employer] provides no warranty or guarantee of the accuracy or completeness of information in this document.
== END 2024-02-21 16:20 | disposition home or self-care (01) | DRG 806 ==
LOC: FBCO 18:39 → FBC 19:21
PROVIDERS: Admitting Provider Obstetrics & Gynecology; Visit Provider Obstetrics & Gynecology
DX: O13.4 Gestational [pregnancy-induced] hypertension without significant proteinuria, complicating childbirth (principal); D62 Acute posthemorrhagic anemia; Z37.0 Single live birth; O70.1 Second degree perineal laceration during delivery; O99.013 Anemia complicating pregnancy, third trimester; O75.89 Other specified complications of labor and delivery; S16.1XXA Strain of muscle, fascia and tendon at neck level, initial encounter
CPT/HCPCS: 36415; 51702; 59025; 59050; 59410; 80307; 82565; 84450; 84460; 84520; 84550; 85025; 85384; 85610; 85730; 86850; 86900; 86901; 97161; J1920; J2300; J2795; Q0162

== ENCOUNTER 2024-02-25 08:27 | Outpatient (OUT) | payer OTHER, SELFPAY ==
--- OUTSIDE RECORDS SUMMARY | 2024-02-25 08:32 | XMS_ITS | CCD ---
Author Organization [facility] Care Team Providers Care Medical Coding Instructor Name Role Phone Ezequiel Melo Unavailable [facility], DR MIRANDA Primary Care Unavailable NAE ., DR UNDERWOOD Admitting Unavailable NAE ., DR UNDERWOOD Consulting Unavailable NAE ., DR UNDERWOOD Attending Unavailable MISC, DR MIRANDA Primary Care Unavailable NAE ., DR UNDERWOOD Admitting Unavailable NAE ., DR UNDERWOOD Consulting Unavailable NAE ., DR UNDERWOOD Attending Unavailable NAE, YASMINE Attending Unavailable NAE, YASMINE Attending Unavailable NAE, YASMINE Attending Unavailable KAMRYN HAWLEY Attending Unavailable NAE, YASMINE Attending Unavailable KAMRYN HAWLEY Attending Unavailable NAE, YASMINE Attending Unavailable Flex Wang MD Primary Care Provider [phone] Allergies Allergy Classification Reported Allergen(s) Allergy Type Date of Onset Reaction(s) Facility (2 sources) Sulfacetamide Drug Allergy [facility]) Other (1 source) Sulfonamides (Antibiotic) Drug allergy (disorder) [facility] Rep[facility] (1 source) Chocolate candy Propensity to adverse reactions 12-17-19 24 GI intolerance, Itching, Runny nose, Swelling [facility] Work Phone: (1 source) pecan pollen extract Drug Allergy 12-17-19 24 Unknown [facility] (1 source) Sulfonamides (Antibiotic) Drug Intolerance 05-20-19 03 Hives, Anxiety, Dizziness, Fever, Headache, Itching, Rash, Shortness of breath, Swelling [facility] (1 source) Pork-Derived Products Propensity to adverse reactions 12-17-19 24 Dizziness, GI intolerance, Headache, Itching, Shortness of breath [facility] Medications Current Medications Medication Drug Class(es) Dates Sig (Normalized) Sig (Original) citalopram 20 mg oral tablet (1 source) Serotonin Reuptake Inhibitor Start: 10-03-2023 End: 10-02-2024 take 1 tablet by mouth once daily citalopram (CeleXA) 20 MG tablet Indications: Anxiety, generalized (CMS/HCC) Take 1 tablet (20 mg) by mouth Daily 30 tablet 10/03/2023 10/02/2024 Active cyclobenzaprine hydrochloride 5 mg oral tablet (1 source) Muscle Relaxant Start: 01-29-2024 take 1 tablet by mouth three times daily as needed for muscle spasms cyclobenzaprine (Flexeril) 5 MG tablet Indications: Back pain in Take 1 tablet (5 mg) by mouth 3 (three) times a day as needed for muscle spasms for up to 10 days 30 tablet 01/29/2024 Active {21 (ethinyl estradiol 0.03 MG / levonorgestrel 0.15 MG Oral Tablet) / 7 (inert ingredients 1 MG Oral Tablet) } Pack [Levora 0.15/30 Day] (1 source) Progestin, Estrogen, Progestin-containi ng Intrauterine Device take 1 tablet by mouth [...] a day for 90 day(s) Nov, Active labetalol hydrochloride 100 mg oral tablet (1 source) beta-Adrenergic Elaine Start: 01-16-2024 End: 01-15-2025 take 1 tablet by mouth in the morning labetalol (Normodyne) 100 MG tablet Indications: 32 weeks gestation of , induced hypertension, antepartum Take 1 tablet (100 mg) by mouth in the morning and 1 tablet (100 mg) before bedtime. 60 tablet 01/16/2024 01/15/2025 Active omeprazole 20 mg delayed release oral capsule (1 source) Proton Pump Inhibitor Start: 01-29-2024 End: 10-11-2024 take 1 capsule by mouth before mealtime omeprazole (PriLOSEC) [address] capsule Indications: Gastroesophageal Reflux Disease , Heartburn Take 1 capsule (20 mg) by mouth in the morning. Take before meals. Do not crush or chew.. 30 capsule 3 01/29/2024 02/28/2024 Active MV-Min-Fe Fum-FA-DHA ( 1 PO) (1 source) MV-Min- Fe Fum-FA-DHA ( 1 PO) Take 1 each by mouth Daily Active Completed/Discontinued Medications Medication Drug Class(es) Dates Sig (Normalized) Sig (Original) metFORMIN (1 source) Biguanide metFORMIN HCl No t-Taking Adrienne- (2 sources) Adrienne-28 Not-Ta yadira Active Problems Active Problems Problem Classification Problem Date Documented Da te Episodic/Chronic Abdominal pain (3 sources) Abdominal pain; Translations: [Unspecified abdominal pain] Onset: 10-11-2021 Resolved: 10-11-2021 Episodic Endometriosis (1 source) Endometriosis (clinical); Translations: [Endometriosis, unspecified] Onset: 08-12-2023 08-12-2023 Chronic Immunizations and screening for infectious disease (1 [...] Test Name Value Interpretation Reference Range Facility ALL CBC WITH AUTO DIFFon BASOPHILS ABSOLUTE AUTO 0.0 [facility] Basophils/100 WBC (Bld) 0.4 % 0.2 - 2.0 % [facility] Eosinophils/100 WBC (Bld) 0.7 % Low 0.9 - 7.0 % [facility] Erythrocyte distribution width (RBC) [Ratio] 15.2 % High 11.0 - 15.0 % [facility] Hematocrit (Bld) [Volume fraction] 25.2 % Low 36.0 - 48.0 % [facility] Hemoglobin (Bld) [Mass/Vol] 8.1 g/dL Low 12.0 - 16.0 g/dL [facility] IMMATURE GRANULOCYTES ABS AUTO 0.02 [facility] Immature granulocytes/100 WBC (Bld) 0.3 % 0.0 - 0.5 % [facility] Interpretation and review of laboratory results Abnormal [facility] LYMPHOCYTES ABSOLUTE AUTO 1.9 [facility] Lymphocytes/100 WBC (Bld) 26.2 % 20.5 - 60.0 % [facility] MCH (RBC) [Entitic mass] 28.0 pg 26.7 - 34.0 pg [facility] MCHC (RBC) [Mass/Vol] 32.1 g/dL 29.9 - 35.2 g/dL [facility] MCV (RBC) [Entitic vol] 87.2 fL 81.0 - 99.0 fL [facility] MONOCYTES ABSOLUTE AUTO 0.6 [facility] Monocytes/100 WBC (Bld) 7.9 % 1.7 - 12.0 % [facility] NEUTROPHILS ABSOLUTE AUTO 4.6 [facility] Neutrophils/100 WBC (Bld) 64.5 % 43.0 - 75.0 % [facility] Platelet mean volume (Bld) [Entitic vol] 11.1 fL 9.5 - 13.5 fL [facility] EO # 0.1 [facility] PLT [address] [facility] RBC [address] [facility] WBC 7.1 [facility] PAP ACOG PANEL 2: 21 to 29on 09-06-2022 . . Normal [facility] Comment on above: Performed By: #### 4 [id number] #### [facility] [address] [place] [address] Dr. Dat Wesley Age Gdln ACOG Testing 21-29 [facility] Comment on above: Performed By: #### 4 [id number] #### [facility] [address] [place] [address] Dr. Dat Wesley DIAGNOSIS: Comment [facility] Comment on above: Result Comment: NEGA TIVE FOR INTRAEPITHELIAL LESION OR MALIGNANCY. Performed By: #### 4 [id number] #### [facility] [address] [address] [address] Dat Wesley Methodology: Comment [facility] Comment on above: Result Comment: This liquid based ThinPrep(R) pap test was screened with the use of an image guided system. Performed By: #### 4 [id number] #### [facility] [address] [place] [address] Dr. Dat Wesley Note: Comment [facility] Comment on above: Result Comment: The Pap smear is a screening test designed to aid in the detection of premalignant and malignant conditions of the uterine cervix. It is not a diagnostic procedure and should not be used as the sole means of detecting cervical cancer. Both false-positive and false-negative reports do occur. . Performed By: #### 4 [id number] #### [facility] [address] [place] [address] Dr. Dat Wesley Performed by: Comment Normal [facility] Comment on above: Result Comment: Singh Sanders Live In Housekeeper (ASCP) Performed By: #### 4 [id number] #### [facility] [address] [place] [address] Dr. Dat Wesley Reflex Criteria: Comment [facility] Comment on above: Result Comment: The HPV DNA reflex criteria were not met with this specimen result therefore, no HPV testing was performed. . Performed By: #### 4 [id number] #### [facility] [address] [place] [address] Dr. Dat Wesley Specimen adequacy: Comment [facility] Comment on above: Result Comment: Sati sfactory for evaluation. Endocervical and/or squamous metaplastic cells (endocervical component) are present. Performed By: #### 4 [id number] #### [facility] [address] [address] [address] Dat Wesley HCG,Urineon 11-03-2021 Beta HCG ( test) Ql (U) Negative Normal [facility] Comment on above: Result Comment: PERF ORMED BY: [facility] [address] [place] [address] PATHOLOGIST GENERAL INTERNAL MEDICINE PHYSICIAN SULTANA PETE M.D. Performed By: #### U HCG #### [id number] [facility] Charles 11-03-2021 L Specimen: [id number] Received: 11/03/21 Status: AYDIN Johnson Num: [id number] Spec Type: Surgical Subm Dr: Ezequiel Melo MD Tissues: A Small Intestine - Biopsy/Polyp (SMALL BOWEL) Procedures: HE Stain/2, Gross/Micro L4 Patient Age/Sex Location Account Attending Physician Carnicom,Leigh G [id number] Ezequiel Melo MD SPEC NUM: RECD: 11/03/21 STATUS: [facility] RE NUM: [id number] PAPI: 11/03/[address] [facility] [address]: Ezequiel Melo MD ENTERED: 11/03/[address] [facility] [address]: SPEC TYPE: Surgical DEPT: S [...] Type of Fixative: 10% Neutral Buffered Formalin (/JulesJ) Microscopic Description Two H E stained slides are reviewed. Microscopic examination is performed. This case is interpreted at [facility], [place], [place] Specimen: Received: 11/03/21 Status: AYDIN Johnson Num: [id number] Spec Type: Surgical Subm Dr: Ezequiel Melo MD Tissues: A Small Intestine - Biopsy/Polyp (SMALL BOWEL) Procedures: HE Stain/2, Gross/Micro L4 Patient: Leigh Singh [id number] (Continued) Specimen: [id number] Received: 11/03/21 (Continued) Signed (signature on file) Gabe Ellis MD 11/06/21 1703 Specimen: [id number] Received: 11/03/21 Status: AYDIN Johnson Num: [id number] Spec Type: Surgical Subm Dr: Ezequiel Melo MD Tissues: A Small Intestine - Biopsy/Polyp (SMALL BOWEL) Procedures: HE Stain/2, Gross/Micro L4 Patient: Leigh Singh [id number] (Continued) Specimen: Received: 11/03/21 (Continued) CPT Codes 14583 Specimen: Received: 11/03/21 Status: AYDIN Johnson Num: [id number] Spec Type: Surgical Subm Dr: Ezequiel Melo MD Tissues: A Small Intestine - Biopsy/Polyp (SMALL BOWEL) Procedures: HE Stain/2, Gross/Micro L4 Patient: JuanshaunaLeigh Craig [id number] (Continued) Signed (signature on file) Gabe Ellis MD 11/06/21 1703 Normal [facility] SARS-CoV-2 (COVID-19) RNA OZZIE+probe Ql (Unsp spec) Negative Normal Negative [facility] Comment on above: Order Comment: Healt hcare Worker?: N Result Comment: Testing for SARS-CoV-2 by RT-PCR This test was developed and its performance characteristics determined by [employer] ([employer]) and validated at the [facility]. This test has not been FDA [...] is terminated or revoked sooner. PERFORMED BY: [address] [place] [address] PATHOLOGIST GENERAL INTERNAL MEDICINE PHYSICIAN SULTANA PETE M.D. Performed By: #### C OVID [address] [facility] #### [address] Coding Summaryon 12-01-2021 Coding Summary HTMLBase 64 GlgrzauuIRo8qGn+PGhl YWQ+DM0ULCBaC74wlQWz bV4MZ8pFOI5NPTSSTKZX IL0VXA5lnQT4OJwyB2Hj biAv SovzjZFhOR01LGo4BUQ4 qAfhKGieqS9xvTBnM1x9 FjWoED86rU06MQlkVOPd VmY2LpOsgmxgvYId P1tqCuZwqDOpIfr+PHRh YmxlIHdpZHRoPScxMDAl MaFsoWdzGK0sHh4hAKHb LWNvbGxhcHNlOiBj w0kaGEKxCDanEE0xyWpk D7WmqJE4CRLzj3i4Qv27 dHI+JULtXPT3jVmuALth v131RjNlw8svJHT9 nNOsADdiHEJ6R84si9F9 LBBaRIOaKYZ9aMF7uP0b rMwgmnehW6SvyVBbAjN1 OMW1gGNfjD0mjBxo mrrqiK0gGvj+F51WYV1N VWTUBR8RZhf1G3CuZkfu dHI+ZX14ODSwXF17xABw qZQim8dvdLs9QsYd VZApQHJ7iPqdBUrvh9Up NHSpC84gvCLbh3L1TJLo dKfjmAHnOnPkjBR1jT0r FGiidiufb3vfykbo Pcxnv6yfwh90lU13G21b TVpwIQZnGTL4ZISxHWPk rTimse7gmT5mCn6+IDxj k8bui9oaoXi8GdDy KWPiacDkjMkhXDQ3r8Bj Cl08H7UvkYsqi8BgElf4 vz90vHLmg4H5tHZ2AGsw QIFpiD6jCEcuVmO2 LGYqOuLibW01qYKqYHze Ie9cyQpejEfaOT6oHVLe ikvdBMIzzE5xLSBjfLCn uCmcTL9qKYZqjoix u188CqTfTKT7KLVdcPQw B0DygK1vUaSeYUGnWQOm H0MagUGxXBycT951JKio BzU9PGTqzjXtW8Oh DTIliWjvNaU4g8C0Pp6E p7SpfprbIZN4UEljQVCg NmAiIcGtQwL8I4RkIwf5 ROXzdUggPZ8fI3Ve OFRjojvxqywumSF7LBMa HSEbsE60yVEkUFaqGa9i g4R7c975ALCqFYHzgR54 Qt8qrKljIZUoiEFC gS1gexwkb0yokrjlXuDs LGFsSAy4SNm4ONRnmKpk YtYrCPA5PwJ7OXL2yPJl qI8hmBftktjfmT1p Oyc+I96xuV2lOYW1LUU6 sudwBTJjqbRyAI40XA60 N5VrPexftCSkrCO+PGRp dtKgpFsfEP8cPoQn f4jpt2UwTLvdB7LlWTMx DJlwOvb8ORXsVZC3wVQ4 yU0nKRXyLUfuz3D7wGO5 U6TyupKixp3js4jj SQTrWIwaN37qyPRur4J9 QJCbbLR1QIJjqIioVrCz uF88Gwr+XYQdxMuyu9Dy Knrvc9cwq0bsiEg9 IjMwJSIgdmFsaWduPSJ0 d8YxNf34E91yTMehOTDf BDMhZKUzSRDguQecjb6t eP5oUp9+PGNvbCB3 sZC9eW4pDNXqVkR7VQcu L187QtYpyBOjAkkln4sh d3jciSr9QwNoKQEdnkBv cSzhZPC1z9OkKh62 U63wMJrfXKDcSIUlVMNz YVJjeGqmhz1btA3mNm4+ MY9he7ejbz54zP76xCH+ MNVbAAI7dPavEGmb XWPmbE8lNZjnLaU8AKVd LrBkaK40rFWyXUljCu7d dTucxOcxYZ2vMXAlndnn c629DqGuj3frAYTr zZXmUFemYEJ6N37ke7A8 JULnGSRyHOX1vMZ4hF5w bGlnbjogbGVmdDsgdmVy hYnzXVbpRLoeN586 IHRvcDsnPlBhdGllbnQg GoXtYBr3K5ZmCak5KQNb kItqMB1weKPwCEaiNl6h pXhhjQtfZL3iZWMh rdgwq683BdDro0puOIEq xLNjXOrsHSX4F46qi4K8 XFMoHTNtMEF4jCD3nZ0x bGlnbjogbGVmdDsg ijCxsTfiWMpcZOviA920 IHRvcDsnPkJpcnRoIERh rPO9OS46DB28nWYvl5T6 gBV9D1SwBCJphtvy hsjwzYT4MPKdYKYjgW81 Sd5vxZveKs7zVUYwCYC6 KSIkdTUmA1WkiL7iOyFy AOOxZUCyU6TceIKl UVkwV796TXhuPpY2BITm vdMeJ4JlGJCugEwkZhN0 q2G5Ac2RB3W3DE88UF68 qVQyq0T2vWN3M3Kt KJTjyhvjlqwvsPP2UWKt EPMekB02Vg3uqTwxVf2p DUUzACI0CJIpgUVlQ1In dK6zNyBaECDfGTLe O9VokJKgCQngT923AMjg JqD8AXKpqaYnP7JcNHOw jZocEdS8y2O0Oy9ZUHa3 DC19NW21oOHry3Z4 oIG2S7HwOWBljczrzqos mVT2ORKeFNXawZ28Nq2g wUzzYy4pLKTtAAF2MZOx zJGbS1SzgE7vLlQs LXEyGCEbE1CzpIObGXja N486XVloMiS9BUWrxyLc D6RcPSDulAlmJfE6n6Y2 Bo0SIDSsRI44KUQ4 vZL9PS75JV60H3AuHyug dGFibGU+PHRhYmxlIHdp ZHRoPScxMDAlJyBzdHls PW2eTo3oFALoTXIf eJqbfPNjQbTfr9vkGPFk BMdcOD6ycNbtV4WjpTJ1 RIGwm9o2Sc62E43bX5Xe dXA+QWSojAM0fIE5 tA4iXfZwPgE1RWaiF036 XbKemAIyTbotx4kbu7nf xPl0ElU5WYIsqlRklXpm WSM5b8MfMj81Z81n IHdpZHRoPSIxNSUiIHZh gLoayl9miP7xAa3+PGNv bBT7yAQ8yQ6lGiWeChH7 IVjaB879JqFggPFl Psfab3eln4pppHm8NeAd ROSdxvGtnLpuEKK0f1Hl Md29A1ThnQkpo2MdKws8 yx88bYIry9D0hRT3 I2AeYRHvvaoiuIIfvNqh ZV9iEAAgcatnKNWwbG8z KAGjM8b0VdDhNuZ0SSna C2KvjgK2IIVuwTFh TYvjQQI1L21iw0Q8ZEDy NNNsZMM9vBH5xR4paOul bjogbGVmdDsgdmVydGlj CPpaWCqoR980KRMm gXjkYUCnjC7hKQLvdWHq pBxcLS1wKIXhktzeGuHO SUREWSwgSEFOTkFIIEdS LQGTEC75LV25sLPe a1Q9eLY5A9RtBARjjonw bmqlcRT6MISdNYRrnM31 bTMfVReeFg2fw3H6t594 TTTxBBJlzT91Yk3r rJttIILmrSBJwM9eicup b3qbmpxsBcBnMBYpZTm9 NUd6HPKxzPlmDaKpDSA6 KiJ6XZX0hKAqxO9c dAqjehcqiJ4nOwb+MDMv MDkvMjAwMTwvdGQ+PHRk KPE8uRveUUhlAZSokK7t DXHdE5h1UnEjEqZ5 WDxyM1NvCLBjwwpxKc27 qX5jXhTaHtY0HVfwN7Qs cmD5GNMiiVKaGSxyMTD7 D06vf5J0PTBlUYOn RPT2fXG3vD8sbQozpfqc bGVmdDsgdmVydGljYWwt VBgzP746DGXajShrEpVd TNerLBLeUY09SA73 nYRmn0U1yMF3V5YpLUTn comcjpgttAO8ROYgBFUp wL06fMPpGJruYv3ou5W3 r032UBNdCLVdcL06 Ot4yePlzFTRbbAZPjX4d glzkn4enoesrKoMhGRPx EDe3WKd4DHBbiJheTkXy MQS8QvE0KJW0sHNk wY3jcMpxgleooV9qPrk+ NuZBZFkAAN06CQ87fCGo j9Z0wML8N7WeSAXvmfsa jcmbcAS8MWCdRMMu pO35dCFtLTolId2uq9E4 h556HWLwYLIfoE87Vo7x bCxsUMEauNCZoC2uctnv b4crbljlWyXeYCMy IBl3VGd2TCKarSznOpAx JJR3EtJ4UUW3rMHduS5f zFjchnqwiA3cOfw+T1A8 P1DzItbfeIL+PC90 XKLwXW28mIXyyGVzr4fw hMf1UaEyATCaMOW5nEwo UZjfv1TtFUJjB43vfVWl d2B1SAPteCrjlJIz XfFurMX7eD8dDSvkluca n9rkbgrlEwdvn5nawx56 hT30P30jGPokVPWqPARj RDXcZSLiaJydts3a iP3wZb9+PBQpuNE6oUY5 dB6dMpXzBdU4GDdzZ035 BxFgoQXoUvjns0fhd9hg lQd6OoGnKXGqeuAb qSzpVUW4g1PnTf32S86u IHdpZHRoPSIyMCUiIHZh aGphoj7lhD8dMx9+PC9j h5qmaq40sD31dZB+ AACaOIY4mVprDUggBGFg oX3vOCmoMoF1GSJoVcPq qU56jRRiOYkmWo2xwDzx uVjwWE8qFAVwkqln r350CjLiv6dnNFIsrCAa IKqqQUX7L48nm7J3ARXa IURjDLO0nJU0aV9dfWhj bjogbGVmdDsgdmVy qDicSZueZTrqK574LUQc lOsqIgUmuTVmJ3myfeYE JS7rYywxkCX+PHRkIHN0 kBwgBRekULCglF7z METcG0g2KdHqBqY4RZgg T2XkclB5VUTbpTZbIMAf kOKMdD4vyfgmy3xlhbwk WzGaOBNcNIe9CLk0 BAZhaTxhYlGdTJI0TdJ3 VCO1sXLdiS4rjYijyixu vP6cTjq+RklOOjwvdGQ+ QQCmLGN5gIwwEZli BSCxnF9zTKZpW8m8AuCo PfI5JRzvM2ObpvN6SLYj iTWkAUXevLRCpY6jydfw h8mwccsnQaDsHZRp BRi4PAl3RGVhyDmfAfJd RYH1KvP1KCD6lTTfyY3x kFpwgustnI2sStk+TVJO OjwvdGQ+PHRkIHN0 xTqmBYtvNIKgaM0yFNLc D1d5TfOrAhN6PNahZ6Uh plH6JZYtwUHrNLHeyWCZ vA8kiuznt0mqkyrs CpXpGUUuQOs3IPp5IXAu aJvkOvRuFML0TxQ7TPQ5 iFKvqG1iwTmgkivplN1z Oyc+CCL7SKA6NA98 LC30P3BwYssbcAWvnHQ+ PHRhYmxlIHdpZHRoPScx TRKmOhYktKsyOI1gHn4j ZGVyLWNvbGxhcHNl OiB (more content not included)... Normal [facility] Urgent Care Note- Provideron 04-06-2021 Urgent [...] and Plan Diagnosis Sprain of left foot ([id number] S93.602A, Discharge, Medical) Plan Condition: Stable. Disposition: [...] she can arrange follow-up as needed. Normal [facility] ED Clinical Summaryon 2020 ED Clinical Summary [facility] ? Urgent Care [address] [place] [id number] Clinical Summary PERSON INFORMATION Name: LEIGH MONTOYA Age: 20 Years Sex: FEMALE : 2000 MRN: Acct#: Visit Reason: UC - Ankle/Foot/Toe Pain or Swelling; LEFT FOOT PAIN Arrival: 04/05/2021 16:12:07 Discharge: 04/05/2021 17:50:00 LOS: 000 01:38 Check In: 04/05/2021 16:12:07 Checkout: 04/05/2021 17:50:00 Address: [facility] [address] [facility] [address] PCP: Flex Wang DO PROVIDER INFORMATION Provider Role Assigned Unassigned Monica Dunn [employer]IS[employer] NETWORK ENGINEER Nurse 04/05/2021 16:14:32 Paul Atkins PA-C [...] With: Address: When: JEFF JESUS [address] [address] Business (1) , only if needed With: Address: When: Flex Wang [address] [facility] [place] [address] Business (1) Within 3 to 5 days DIAGNOSIS: Sprain of left foot Patient Understands: Yes - Patient/family/careg iver verbalizes understanding of instructions given Comment: Normal [facility] ED Patient Summaryon 021 ED Patient Summary [facility] ? Urgent Care [address] [place] [address] [id number] PATIENT DISCHARGE INSTRUCTIONS Patient Information Name: LEIGH MONTOYA Age: 20 Years Date of : 2000 Reason For Visit: UC - Ankle/Foot/Toe Pain or Swelling; LEFT FOOT PAIN Arrival Time: 04/05/2021 16:12:07 Primary Care Physician: Flex Wang DO Attending Physician: Nirav Nunez Comment: Patient Education With: Address: When: JEFF JESUS [address] [address] Business (1) , only if needed With: Address: When: Flex Wang [address] [facility] [place] [address] Business (1) Within 3 to [...] ? As (more content not included)... Normal [facility] Care Recordon 021 Urgent Care Record [facility] ? Urgent Care [address] [facility] [place] [address] PATIENT DISCHARGE INSTRUCTIONS Patient Information Name: LEIGH MONTOYA Age: 20 Years Date of : 2000 Reason For Visit: UC - Ankle/Foot/Toe Pain or Swelling; LEFT FOOT PAIN Arrival Time: 04/05/2021 16:12:07 Primary Care Physician: Flex Wang DO Attending Physician: Nirav Nunez Comment: Visit Diagnosis: Diagnoses This Visit Sprain of left foot (S93.602A) UC - Ankle/Foot/Toe Pain or Swelling ([id number]) If you received any narcotics, sedation, or [...] any legal documents With: Address: When: JE[address] [address] Business (1) , only if needed With: Address: When: Flex Wang [address] [facility], [place] [address] Business (1) Within 3 to 5 days Medication Information: The exam and treatment you received today in the [facility] were for an urgent problem and are not intended as complete care. It is important for you to follow up with a doctor, nurse practitioner, or physician?s sound assistant for ongoing care. If your symptoms [...] so we can reach you if necessary. [facility] has provided you with a complete list of medications post discharge. 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 Any specific questions regarding your chronic medications and dosages should be discussed with your primary care physician(s) and/or pharmacist. Medications to Continue That Have Not Changed Other Medications Durable Medical Equipment (DME) (EQ NASAL ALLERGY SPRAY AER) ethinyl estradiol-levonorges trel (Jolessa 0.15 mg-30 mcg oral tablet) TAKE [...] are no br (more content not included)... [facility] XR Foot Complete Lefton 03-20 [...] Vishal Fernandez 04/06/21 8:27 am Technologist: NELIDA [facility] Coding Summaryon 08-01-2020 Coding Summary HTMLBase 64 XzrbsyznFTf2wHe+PGhl YWQ+IS5RIUVoB54plZMj xP9JL1eITG0AOWZFYOWZ GL1OKU6saLY3GJchO4Bz biAv QzwvcCLsVX02XJg7CXZ2 eLatHJdivA1xqYOfR5k2 XmFeXD56oA37RItpLAZl StH4VpKbeshqoFTr J7dxYbYzjCMqGet+PHRh YmxlIHdpZHRoPScxMDAl PhKyfRchBS0lWm3vFIQe LWNvbGxhcHNlOiBj h9buZDTaJElcZX0mmAfp T4PmmJU7RUUuq0h2Hd22 dHI+WTDvUFR1aHsyXNjv n345SgBnj6pgZHB1 jAYvKAkpPNB4W57vy7F2 BMPqHCLmXUO4bXL6sY2d eSicwmsnT3BkyDNlNzJ9 YYM7aIYyuT8ulJyh olapyR6bVur+T63ZGA5G WLMIAA1CDsn3O8VmYfzc dHI+KZ99ODXwKD29ePOs aOIop6vwqQo8GyWx PCWbRUO9cRgaWLtka4Ja JMUsK90nbOZsf1Y8GFEj mJrqpSHrQlEloPJ3oQ1u GVbfgkiae9ksdrkw Qfovg5gqiy84eV40U69h QKcpWHJvFJW6KFVpFCHp fWtuon6ygC5lDr4+IDxj m6xxq0ajoPs5JyJf ORRjnwBbyOpqVUI0a6Nl Ug38G4ZfaZwom6TtLql2 jp38dZTlo0J6sFM4KKjc CJDjzY9zUMwbHjI9 IDTfZlNnlQ28kQNkLBub Eg7hdKzajBpoNT5kDRVi fplwGVZvzE5fZMLcnWSo iHomIV1gBFSxmbav v137HlYrXYV4RBZjkSKg U4NidO4mLnOsLKLjJDZh H8CzbKZqLTekG939VVqt McO7SMLquvLsL6Um ZWRzqJibLjM9o8K5Ew5R n0QdjzzxFCT7HAhoRGIo OpL6NyYiBlG8V5ZjUvm4 GGFvdGycKV6tB6Xt ILBoazonnpjzmAR7ANLf GFElkN15pYIcWIukNb6n o5T9z200ZSUwPNGtdI02 Ct8qiHvsVUJkxMRL nU8ahzflf8brluasZmGj YPJpIXj6BOh8DNSrjMgx CmKiVVV9ZyB5XLU9aLAl dR9ijGealmyhbW2j Oyc+K91sdJ9gVYK8CZF9 alwfYFEpfvUmYG46LB15 X2PaTcafyOCouRJ+PGRp evBdxKwzOY6bMiIr g0xsg0PeGUjrJ4BfVLTn LNehZwp3ICBgUPI1oUW5 xA6iSUWyATtul8E1qUF6 O1PztkQgnz2bw6fp LIOaHArvH09uuJFbd7D7 MTJkoAT7MMKhxPapSnPx xG43Lcz+LXMexLbta1Gy Rokhe7svr6cyeHe1 IjMwJSIgdmFsaWduPSJ0 u7NxQs20N01cCHjkGLEr QKHeHJDkADDlbLhjwg5v mR8wXx3+PGNvbCB3 mML0sL2kLJUrVfY7LFfb J701KyBhxJWqPxlia1la c2atpLr3JaSiTRZkpdRe oEsfCRB4a6TmMk38 G20wQUplZHBoEHKxAYHn GCXhqFjiej9pyC9pSk2+ GJ8vl9saae33oO90uTE+ IBVhPON7cXnaVBoo KISayS9wLQbpIdI9GCEo SyZafH90iFMrKQhtAm5k hUnzuJcjCM7nOINcwmil g101YtVhs9chAMBu yGYrYUzyAJA4J56ph3Q3 VCJvNFTqNBW8kZV7cJ1t bGlnbjogbGVmdDsgdmVy wWpiNBolVCkfY118 IHRvcDsnPlBhdGllbnQg LhDlXDy3C5YaLoe4MBCz uJqsNW7xbDExNRjpMf1k xRvehPfjUV3yXEGt zsrmm486DgOcm3ioBIQg jNRgYObdYER5P07rf1N4 PERkNLRfPZS9eKI9qY3h bGlnbjogbGVmdDsg hhVgqUuyICcpOAqkE357 IHRvcDsnPkJpcnRoIERh wEI1RI95SO83fNSli4F8 jIA3L4DjSOJtacqv axnctSU2MHTsGTJjsP65 Qb6ydKuuPn5mRJZiRRM3 KIJtvIUsX6HvaA3uQhTu BDNhMOJiW8MneNHx ZVekL040GRmdIsI5DLOn mgVyV3BdOQXxoGetLsK8 s9M6Ke0WC5I9MN85GL47 iJUvl2U3cEM6J6Oo BDOijbeoujhjiXC0DIJi GXZbtA49Py5wmNsaIq5v WRJzNEE6GTPomSBpE4Ke uY9gLoChJPUuCBKz I9GreDKnDPujL939AVqt XbJ3KCWqmgBvK7CwCCZo sLdrVlI5m9L5Go9KVYi6 KQ23LV94sYFhe6H6 rEY1T4AgOHDgjsxejocd hMU9XKHrQFQrlU88Lj0h uXlaOh8sNVBiTPG3VCEj tBSaG9NxdV9fDoKl SYFiVHFkW9AvfHUmKNme X334AWtnCdX4IXOolnFp E5YnWYUerLjkWxT0m7Y2 Tf1QOAUzSK86JAD9 zUI5PD04GI05Y7VnHphs dGFibGU+PHRhYmxlIHdp ZHRoPScxMDAlJyBzdHls TF5eDb7zYMAyUJLy hTpvyPZoFdFmg6vaYKUh DIulYG8fdNueL5KxiNW0 JPVjr8x7Mc80K44aF6Tn dXA+OTBliAD1bWZ4 gD9cRdLgDkL0NTkvJ011 DgEtvZYkNoidv9hfs3sj xBt9XoP7EDCrktGnbSmj GPI4i3OeTr67I46y IHdpZHRoPSIxNSUiIHZh vFnnnu6rqE7iMo2+PGNv rSI6zHM7iS0mNfRoTbA8 XRnxA829HwUprSZl Igewy7est8pkrVk3HaGv WZDkmxEyeJheNLF9v6Kb Gl17G7QxbWpht1GyJnr2 gf33iSEmd3H5qJH9 K7YdGMKlrfvkjFChcYsp YY7oLHOpkixaWAKxnL1g PYGhD9k2SjLsSlR9OXir R7ShejU5KUDnrOQa VIgoZRU0C62mr6V7MHXu CPWcXBB4oNC2qS0qaHyk bjogbGVmdDsgdmVydGlj ZOplVKhlG221HLXo nNykCFVppC5xNEGftRSk fOgvLY7uNYIqbqysXeXK SUREWSwgSEFOTkFIIEdS GZTUIS67XV32fXMw i3N3uEB6S5WfKVWliany runqpQA5YIMaSFZaiT70 kMErESohDj4bg1N7s525 JWQwMCNcuN10Mv7t xDbcDHQynLFVzD3fdorr i8aaxwkyOpImQDLeYAh0 ZWl5LWJfjIvyTfIaFTB5 SqF7NDA5zDPaaP8q nEkkteybhH2cDur+MDMv MDkvMjAwMTwvdGQ+PHRk OWP6uDryKUchVKElsV9d AFUyW6d0GyLmIrY2 AQliV8XnEWMnxmdlVq53 aA0wWmFuExR6YGuaR5Ej txH7WVPhbVJfIJdcERT2 P92le5Z6QNTrUXEd NNY3nVL7dK2crAkuwbcr bGVmdDsgdmVydGljYWwt JBfhY224UZTddQlpCsMy EAovLSDwBV24QB51 gKGqu7X5uRL0H9SrYUVl qovxkkzutIC4QLGoNAUz vQ67eXFsALkfJw8mn1K9 a309YRNxHZOxqS48 Sc2xzAutSUAqgCLEwZ1r pduel1xdcfurMrAjOKBs LFr6PVk0TGOmpHihHbJc MLF9RbB6VES7rSLo uF6wkXhvpbgovF2jZod+ GtYVDOpEOT00FK03qBAx m9G4rYT6R4WgHHLfxxwl mlcpwDN2NWQvBKEo pQ74mPLaUTkqPq1tv2S4 j985RPDvHCKcrJ59Cn8i yCqoHZYhcTVOxF3vhqbx m3ialmlcHmEzKDHi YIv7YBz4EUNxvSlpQpVn ROR0PyV7VBI6vZSnkZ6k ePcurcrsmX7nKbb+T1A8 I5XpXpqvdAE+PC90 MENcGM29uYSjfOQqe3kk hIr4StLbCNXtSAP2nWhn OTfpx4BaQZTqX85teBRr h3L3UXOqkOsidLRe WeNruSI5uP7nIKzubtsd j5xevivvKipym9gzgf28 aW27E46aUWjvBDVcNXMh LCCqSLUdlSjmaf8i gK5pJb0+TOOdmXB4gFO3 aY1vZyMpCoA5MDoaP064 KnXeiVXhIgtyp2gpt9sg pHj0WwPcVMIpheBg lKieOKJ0m9GeZt49G17z IHdpZHRoPSIyMCUiIHZh nPqroy5iyL4oFb2+PC9j u6nhgg73vT35nNX+ RHRhGBU0rMexNJlvKFPs bA1aHFltHjN2EOAuVbCy yD17jIBrDImtWk5xuEpp mCxpAE2qINFapfam l762SmMud7ilISZqzFHk FEtuIEG2Q01ds2M6FOYj UIEcPMH5nQM0mL5ypVyl bjogbGVmdDsgdmVy bQggJZbqYAmcN331YFDl hJvcTuOvaCWlQ7ropvUJ ER9vCizluMH+PHRkIHN0 uKtcMCbkQUFthO7s QXYfI7e3NdKuEyE9XWzt O2TtpiK9YIVbkULuUROh bPYCqT4hdakgo8ofekjk JjTiGUYkTYq9WOz7 VUGfqYksLrOoTNW4FmR2 CON0dNRywN7poPzeczvv fZ1rKsa+RklOOjwvdGQ+ RNGkESK3oGukETef DXKtdM0cRQQuX4v8VaLl YmF6LWgnV4XpujG1POEv sTYcKRDdkJQMfB5epouy h1ouxvmuKfMyEWZt XAc0AXg8BOQzaBxxCpIh GQU3XgZ9WMM1zRKdsR1l mSnjkmryeH3gUym+TVJO OjwvdGQ+PHRkIHN0 lAcwDPsbWQEutQ9bOBTs R6a9AiWpHvF8OFvxS4Yl eeH0ELQlnVXjXTQcsIEY uQ7mjiyxt5lmutfo PoNfXCSlUVr9IHl4CTWm xEthBmDpFRF8AhJ2VYB5 fBBsdL9utVpukwowgS9u Oyc+DHV2UYV9RX81 KZ05Q4PuQzhiwHHuvRS+ PHRhYmxlIHdpZHRoPScx YYUjHbBguFrkBJ5eQt2n ZGVyLWNvbGxhcHNl OiB (more content not included)... Normal [facility] C Throaton 07-31-2020 C Throat Ordered by Discern. Normal throat regi isolated No pathogens isolated Normal [facility] Comment on above: Performed By: #### 6 [id number] ####[facility] (DEFAULT)[address] [place] [address] ED Clinical Summaryon 2020 ED Clinical Summary [facility] ? Urgent Care [address] [place] [address] Clinical Summary PERSON INFORMATION Name: LEIGH MONTOYA Age: 20 Years Sex: FEMALE : 2000 MRN: Acct#: Visit Reason: UC - Sore Throat; THROAT PAIN Arrival: 07/29/2020 09:44:22 Discharge: 07/29/2020 10:23:00 LOS: 000 00:39 Check In: 07/29/2020 09:44:22 Checkout: 07/29/2020 10:23:00 Address: [address] [place] [address] PCP: Flex Wang DO PROVIDER INFORMATION Provider [...] Negative . Impression and Plan Diagnosis Pharyngitis (ZKD24-YI J02.9, Discharge, Medical) Plan Condition: Stable. Disposition: Discharged: Time 07/29/2020 10:17:00 (more content not included)... Normal [facility] ED Note - Provideron 021 ED Note - Provider Patient: LEIGH MONTOYA Age: 20 years Sex: FEMALE : 2000 Associated Diagnoses: Pharyngitis Author: Jeanna SILVA, Patricia Cody Basic Information Time seen: Date 07/29/2020. History [...] Negative . Impression and Plan Diagnosis Pharyngitis (PLL21-IQ J02.9, Discharge, Medical) Plan Condition: Stable. Disposition: Discharged: Time 07/29/2020 10:17:00, to home. Patient was given the following educational materials: Pharyngitis, Gvhb-qw-Kwnw, Pharyngitis, Bhyi-zz-Geve. Follow up with: Flex Wang Within 2 [...] 07/29/2020 10:20 EST] Patricia Meeks PA-C Normal [facility] ED Patient Summaryon 021 ED Patient Summary [facility] ? Urgent Care [address] [facility]. [place], [place] [id number] PATIENT DISCHARGE INSTRUCTIONS Patient Information Name: LEIGH MONTOYA Age: 20 Years Date of : 2000 Reason For Visit: UC - Sore Throat; THROAT PAIN Arrival Time: 07/29/2020 09:44:22 Primary Care Physician: Flex Wang DO Attending Physician: Patricia Meeks PA-C Comment: Patient Education With: Address: When: Flex Wang [address] [facility], [place] [address] Business (1) Within 2 to [...] Follow these instructions at home: ? Take aovy-ywp-rgehwrm and prescription medicines only as told by [...] 10/22/2008 Document Revised: 04/18/2018 Document Reviewed: 06/11/2017 [employer] Patient Education ? 2020 [employer]. Medication Information: The exam and treatment you received today in the [facility] Emergency Department were for an urgent problem and are not intended as complete care. It is important for you to follow up with a doctor, nurse practitioner, or physician?s sound assistant for ongoing care. If your symptoms [...] so we can reach you if necessary. [facility] Emergency Department has provided you with a complete list of medications post discharge. 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 Any specific questions regarding your chronic medications and dosages should be discussed with your primary care physician(s) and/or pharmacist. Medications to Continue That Have Not Changed Other Medications ethinyl estradiol-levonorges trel (Jolessa 0.15 mg-30 mcg oral tablet) TAKE 1 TABLET BY MOUTH ONCE DAILY. metFORMIN (metFORMIN 500 mg oral tablet) 1 tab(s) Oral 2 times a day. multivitamin with iron (Iron 100 Plus oral tablet) 1 tab(s) Oral every day. Visit Information Visit Diagnosis: Diagnoses This Visit Pharyngitis (J02.9) UC - Sore Throat (C11 (more content not included)... Normal [facility] Strep Aon 07-29-2020 Strep procedure control Pass Normal [facility] Comment on above: Performed By: #### 6 [id number] ####[facility] (DEFAULT)[address] [place] [address] Streptococcus A Negative Normal Negative [facility] Comment on above: Performed By: #### 6 [id number] ####[facility] (DEFAULT)[address] [place] [address] Urgent Care [facility] 021 Urgent Care Record [facility] ? Urgent Care [address] [place] [address] PATIENT DISCHARGE INSTRUCTIONS Patient Information Name: LEIGH MONTOYA Age: 20 Years Date of : 2000 Reason For Visit: UC - Sore Throat; THROAT PAIN Arrival Time: 07/29/2020 09:44:22 Primary Care Physician: Felx Wang DO Attending Physician: Patricia Meeks PA-C Comment: Visit Diagnosis: Diagnoses This Visit Pharyngitis (J02.9) UC - Sore Throat ([id number]) If you received any narcotics, sedation, or [...] When: Flex Wang [address] [facility], [address] [place] [id number] Business (1) Within 2 to 4 days [...] and treatment you received today in the [facility] Urgent Care were for an urgent problem and are not intended as complete care. It is important for you to follow up with a doctor, nurse practitioner, or physician?s sound assistant for ongoing care. If your symptoms [...] so we can reach you if necessary. [facility] Care has provided you with a complete list of medications post discharge. 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 Any specific questions regarding your chronic medications and dosages should be discussed with your primary care physician(s) and/or pharmacist. Medications to Continue That Have Not Changed Other Medications ethinyl estradiol-levonorges trel (Jolessa 0.15 mg-30 mcg oral tablet) TAKE [...] Follow these instructions at home: ? Take eyrs-brz-yqtakmi and prescription medicines only as told by [...] help righ (more content not included)... Normal [facility] Coding Summaryon 06-27-2020 Coding Summary CODING DATE: 06/27/2020 [facility] STATUS: Home PAYOR: Commercial Insurance ADMIT [...] Nano Padilla Date Saved: 06/27/2020 12:37 pm Normal [facility] ED Clinical Summaryon 2020 ED Clinical Summary [facility] ? Urgent Care [address] [place] [address] Clinical Summary PERSON INFORMATION Name: LEIGH MONTOYA Age: 19 Years Sex: FEMALE : 2000 MRN: Acct#: Visit Reason: UC - Ear Pain; UC - Ear Pain; RIGHT EAR PAIN Arrival: 06/18/2020 15:00:59 Discharge: 06/18/2020 15:27:00 LOS: 000 00:27 Check In: 06/18/2020 15:00:59 Checkout: 06/18/2020 15:27:00 Address: [address] [place] [address] PCP: Flex Wang DO PROVIDER INFORMATION Provider Role Assigned Unassigned Monica Dunn [employer] Nurse 06/18/2020 15:03:15 Marv Shannon ED PA 06/18/2020 15:03:24 VITALS INFORMATION Vital Sign Triage Latest Temperature Tympanic Temperature Temporal Artery Pulse Rate O2 Sat 98 % 98 % Respiratory Rate Blood Pressure /78 mmHg /78 mmHg MEDICAL INFORMATION Medications Given: Allergy Information: sulfamethoxazole; ibuprofen PHYSICIAN DOCUMENTATION DISCHARGE INFORMATION: Discharge Disposition: Home Discharge Location: Home PATIENT EDUCATION INFORMATION Instructions: Otitis Media, Adult, Cgaz-fk-Xwfo Follow-Up: With: Address: When: Flex Wang [address] [facility] [address] [place], [place] [id number] Business (1) Comments: Begin on the amoxicillin-clavulan ate antibiotic take every 12 hours for the next 10 days Follow-up with your primary care physician in 3-5 days for reevaluation, sooner if any worsening symptoms DIAGNOSIS: Otitis media, right Patient Understands: Yes - Patient/family/careg iver verbalizes understanding of instructions given Comment: Normal [facility] ED Patient Summaryon 021 ED Patient Summary [facility] ? Urgent Care [address] [facility] [place] [address] PATIENT DISCHARGE INSTRUCTIONS Patient Information Name: LEIGH MONTOYA Age: 19 Years Date of : 2000 Reason For Visit: UC - Ear Pain; UC - Ear Pain; RIGHT EAR PAIN Arrival Time: 06/18/2020 15:00:59 Primary Care Physician: Flex Wang DO Attending Physician: Marv Shannon Comment: Patient Education With: Address: When: Flex Wang [address] [facility], [address] [place], [place] [id number] Business (1) Comments: Begin on the amoxicillin-clavulan ate antibiotic take every 12 hours for the next 10 days Follow-up with your primary care physician in 3-5 days for reevaluation, sooner if any worsening symptoms Otitis Media, Adult Otitis media means that the middle ear is red and swollen (inflamed) and full of fluid. The condition usually goes away on its own. Follow these instructions at home: ? Take jvhw-uro-zqufioy and prescription medicines only as told by [...] 10/22/2008 Document Revised: 04/18/2018 Document Reviewed: 05/27/2017 [employer] Patient Education ? 2019 [employer]. Medication Information: The exam and treatment you received today in the [facility] Emergency Department were for an urgent problem and are not intended as complete care. It is important for you to follow up with a doctor, nurse practitioner, or physician?s sound assistant for ongoing care. If your symptoms [...] so we can reach you if necessary. [facility] Emergency Department has provided you with a complete list of medications post discharge. 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 Any specific questions regarding your chronic medications and dosages should be discussed with your primary care physician(s) and/or pharmacist. New Medications [facility], [address] [place], [place] [id number], [phone] amoxicillin-clavulan ate (Augmentin 500 mg-125 mg oral tablet) 1 tab(s) Oral Every 12 hours scheduled time for 10 Days. Refills: 0. Medications to Continue That Have Not Changed Other Medications ethinyl estradiol-levonorges trel (Jolessa 0.15 mg-30 mcg oral tablet) TAKE 1 TABLET BY MOUTH ONCE DAILY. metFORMIN (metFORMIN 500 mg oral tablet) 1 tab(s) Oral 2 times a day. multivitamin with iron (Iron 100 Plus oral tablet) 1 tab(s) Oral every day. Visit Information Visit Diagnosis: Diagnoses This Visit Otitis media, right (H66.91) UC - Ear Pain ([id number]) UC - Ear Pain ([id number]) If you received any narcotics, sedation, or any other medication that causes drowsiness for the next 24 hours, unless otherwise directed: ? Do not drive a car. ? Do not operate machinery such as power tools, lawn mowers, drills, sewing machines, or stoves ? Avoid alcoholic beverages and drugs for allergies, n (more content not included)... Normal [facility] Urgent Care Note- Provideron 06-18-2020 Urgent [...] Impression and Plan Diagnosis Otitis media, right (USI14-JW H66.91, Discharge, Medical) Plan Prescriptions: [facility] Pharmacy: Augmentin 500 mg-125 mg oral tablet (Prescribe): 1 tab(s), PO, q12hr, for 10 day(s), 20 tab(s), 0 Refill(s). Patient was given the following educational materials: Otitis Media, Adult, Mioa-wf-Qjqa. Follow up with: Flex Wang Begin on the amoxicillin-clavulan ate antibiotic take every 12 hours for the next 10 days Follow-up with your primary care physician in 3-5 days for reevaluation, sooner if any worsening symptoms. Counseled: Patient, Regarding diagnosis, Regarding diagnostic results, Regarding treatment plan, Regarding prescription, Patient indicated understanding of instructions. Normal [facility] Urgent Care [facility] 021 Urgent Care Record [facility] ? Urgent Care [address] [place] [address] PATIENT DISCHARGE INSTRUCTIONS Patient Information Name: LEIGH MONTOYA Age: 19 Years Date of : 2000 Reason For Visit: UC - Ear Pain; UC - Ear Pain; RIGHT EAR PAIN Arrival Time: 06/18/2020 15:00:59 Primary Care Physician: Flex Wang DO Attending Physician: Marv Shannon Comment: Visit Diagnosis: Diagnoses This Visit Otitis media, right (H66.91) UC - Ear Pain ([id number]) UC - Ear Pain ([id number]) If you received any narcotics, sedation, or [...] With: Address: When: Flex Wang [address] [facility] [place] [address] [place] [address] Business (1) Comments: Begin on the amoxicillin-clavulan ate antibiotic take every 12 hours for the next 10 days Follow-up with your primary care physician in 3-5 days for reevaluation, sooner if any worsening symptoms Medication Information: The exam and treatment you received today in the [facility] were for an urgent problem and are not intended as complete care. It is important for you to follow up with a doctor, nurse practitioner, or physician?s sound assistant for ongoing care. If your symptoms [...] so we can reach you if necessary. [facility] Urgent Care has provided you with a complete list of medications post discharge. 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 Any specific questions regarding your chronic medications and dosages should be discussed with your primary care physician(s) and/or pharmacist. New Medications [facility], [address] [facility] [address] [place], [place] [id number], [phone] amoxicillin-clavulan ate (Augmentin 500 mg-125 mg oral tablet) 1 tab(s) Oral Every 12 hours scheduled time for 10 Days. Refills: 0. Medications to Continue That Have Not Changed Other Medications ethinyl estradiol-levonorges trel (Jolessa 0.15 mg-30 mcg oral tablet) TAKE [...] Follow these instructions at home: ? Take wofi-aup-ewahwad and prescription medicines only as told by [...] (paralyzed). ? You (more content not included)... [facility] Consent Formson 04-28-2020 Consent Forms [id number] #1.00[facility] Provider Orderson 04-28-2020 Provider Orders [id number] #1.00[facility] Coding Summaryon 04-25-2020 Coding Summary CODING DATE: 04/25/2020 [facility] STATUS: Home PAYOR: Commercial Insurance ADMIT [...] Nano Padilla Date Saved: 04/25/2020 02:38 pm [facility] .QC Respiratory Panel 2.1 (B ioFire)on 04-22-2020 Internal Control-Resp Panel 2.1(BioFire) Pass [facility] Comment on above: Order Comment: Order ed by Holley.[[id number]] Performed By: #### 6 [id number], [id number] ####[facility] (DEFAULT)[address] [place] [address] Respiratory Panel 2.1 (BioFi re)on 04-22-2020 Adenovirus -BioFire Not detected Normal Not Detected [facility] Comment on above: Performed By: #### 6 [id number], [id number] ####[facility] (DEFAULT)[address] [place] [address] Bordetella parapertussis -BioFire Not detected Normal Not Detected [facility] Comment on above: Performed By: #### 6 [id number], [id number] ####[facility] (DEFAULT)[address] [place] [address] Bordetella pertussis -BioFire Not detected Normal Not Detected [facility] Comment on above: Performed By: #### 6 [id number], [id number] ####[facility] (DEFAULT)[address] [place] [address] Chlamydia pneumoniae -BioFire Not detected Normal Not Detected [facility] Comment on above: Performed By: #### 6 [id number], [id number] ####[facility] (DEFAULT)[address] [place] [address] Coronavirus 229E (Not COVID-19) -BioFire Not detected Normal Not Detected [facility] Comment on above: Performed By: #### 6 [id number], [id number] ####[facility] (DEFAULT)[address] [place] [address] Coronavirus HKU1 (Not COVID-19) -BioFire Not detected Normal Not Detected [facility] Comment on above: Performed By: #### 6 [id number], [id number] ####[facility] (DEFAULT)[address] [place] [address] Coronavirus NL63 (Not COVID-19) -BioFire Not detected Normal Not Detected [facility] Comment on above: Performed By: #### 6 [id number], [id number] ####[facility] (DEFAULT)[address] [place] [address] Coronavirus OC43 (Not COVID-19) -BioFire Not detected Normal Not Detected [facility] Comment on above: Performed By: #### 6 [id number], [id number] ####[facility] (DEFAULT)[address] [place] [address] Employed in healthcare? No Invalid Interpretation Code [facility] Comment on above: Performed By: #### 6 [id number], [id number] ####[facility] (DEFAULT)[address] [place] [address] Group care resident? No Invalid Interpretation Code [facility] Comment on above: Performed By: #### 6 [id number], [id number] ####[facility] (DEFAULT)[address] [place] [address] Human Metapneumovirus -BioFire Not detected Normal Not Detected [facility] Comment on above: Performed By: #### 6 [id number], [id number] ####[facility] (DEFAULT)[address] [place] [address] Human Rhinovirus/Enterovir us -BioFire Not detected Normal Not Detected [facility] Comment on above: Performed By: #### 6 [id number], [id number] ####[facility] (DEFAULT)[address] [place] [address] In ICU? No Invalid Interpretation Code [facility] Comment on above: Performed By: #### 6 [id number], [id number] ####[facility] (DEFAULT)[address] [place] [address] Influenza A (no subtype) -BioFire Not detected Normal Not Detected [facility] Comment on above: Performed By: #### 6 [id number], [id number] ####[facility] (DEFAULT)[address] [place] [address] Influenza A -BioFire Not detected Normal Not Detected [facility] Comment on above: Performed By: #### 6 [id number], [id number] ####[facility] (DEFAULT)[address] [place] [address] Influenza A H1 -BioFire Not detected Normal Not Detected [facility] Comment on above: Performed By: #### 6 [id number], [id number] ####[facility] (DEFAULT)[address] [place] [address] Influenza A H1-2009 -BioFire Not detected Normal Not Detected [facility] Comment on above: Performed By: #### 6 [id number], [id number] ####[facility] (DEFAULT)[address] [place] [address] Influenza A H3 -BioFire Not detected Normal Not Detected [facility] Comment on above: Performed By: #### 6 [id number], [id number] ####[facility] (DEFAULT)[address] [place] [address] Influenza B -BioFire Not detected Normal Not Detected [facility] Comment on above: Performed By: #### 6 [id number], [id number] ####[facility] (DEFAULT)[address] [place] [address] Mycoplasma pneumoniae -BioFire Not detected Normal Not Detected [facility] Comment on above: Performed By: #### 6 [id number], [id number] ####[facility] (DEFAULT)[address] [place] [address] Parainfluenza Virus 1 -BioFire Not detected Normal Not Detected [facility] Comment on above: Performed By: #### 6 [id number], [id number] ####[facility] (DEFAULT)[address] [place] [address] Parainfluenza Virus 2 -BioFire Not detected Normal Not Detected [facility] Comment on above: Performed By: #### 6 [id number], [id number] ####[facility] (DEFAULT)[address] [place] [address] Parainfluenza Virus 3 -BioFire Not detected Normal Not Detected [facility] Comment on above: Performed By: #### 6 [id number], [id number] ####[facility] (DEFAULT)[address] [place] [address] Parainfluenza Virus 4 -BioFire Not detected Normal Not Detected [facility] Comment on above: Performed By: #### 6 [id number], [id number] ####[facility] (DEFAULT)[address] [place] [address] status? Not Invalid Interpretation Code [facility] Comment on above: Performed By: #### 6 [id number], [id number] ####[facility] (DEFAULT)[address] [place] [address] Respiratory Syncytial Virus -BioFire Not detected Normal Not Detected [facility] Comment on above: Performed By: #### 6 [id number], [id number] ####[facility] (DEFAULT)[address] [place] [address] SARS-CoV-2 (COVID-19) RNA OZZIE+probe Ql (Unsp spec) Not detected Normal Not Detected [facility] Comment on above: Performed By: #### 6 [id number], [id number] ####[facility] (DEFAULT)[address] [place] [address] SARS-CoV-2 (COVID-19) RNA OZZIE+probe Ql (Unsp spec) No Invalid Interpretation Code [facility] Comment on above: Performed By: #### 6 [id number], [id number] ####[facility] (DEFAULT)[address] [place] [address] Symptomatic as defined by CDC? No Invalid Interpretation Code [facility] Comment on above: Performed By: #### 6 [id number], [id number] ####[facility] (DEFAULT)[address] [place] [address] Vital Signs Date Time Vital Sign Value Performing Clinician Facility 12-06-2021 16:30-0400 Body height 160.02 cm Ezequiel Melo Other [facility] Other 12-06-2021 16:30-0400 Body mass index (BMI) [Ratio] 41.62 kg/m2 Ezequiel Melo Other [facility] Other 12-06-2021 16:30-0400 Body weight 106.6 kg Ezequiel Melo Other [facility] Other 10-11-2021 14:45-0400 Body height 160.02 cm Ezequiel Melo Other [facility] Other 10-11-2021 14:45-0400 Body mass index (BMI) [Ratio] 41.98 kg/m2 Ezequiel Lorie Other [facility] Other 10-11-2021 14:45-0400 Body weight 107.5 kg Ezequiel Melo Other [facility] Other 10-11-2021 14:45-0400 Diastolic blood pressure 79 mm[Hg] Ezequiel Lorie Other [facility] Other 10-11-2021 14:45-0400 Systolic blood pressure 128 mm[Hg] Ezequiel Melo Other [facility] Other Encounters Encounter Date Encounter Type Care Provider Facility Start: 02-19-2024 End: 02-19-2024 [facility] Result Encounter Yasmine Nae DO Work Phone: [facility] External Department Unsolicited Start: 02-19-2024 End: 02-19-2024 [facility] Result Encounter Yasmine Nae DO Work Phone: [facility] External Department Unsolicited Start: 01-29-2024 End: 01-29-2024 ambulatory YASMINE NAE Not Available Start: 01-16-2024 End: 01-16-2024 ambulatory KAMRYN HAWLEY Not Available Start: 01-02-2024 End: 01-02-2024 ambulatory YASMINE NAE Not Available Start: 12-17-2023 End: 12-17-2023 ambulatory KAMRYN HAWLEY Not Available Start: 12-03-2023 End: 12-03-2023 ambulatory YASMINE NAE Not Available Start: 11-07-2023 End: 11-07-2023 ambulatory YASMINE NAE Not Available Start: 10-31-2023 End: 10-31-2023 ambulatory YASMINE NAE Not Available Start: 08-12-2023 End: 08-12-2023 ambulatory YASMINE NAE Not Available Start: 08-29-2022 End: 08-29-[address] DOCTOR SUE Facility:[facility] Start: 01-12-2022 End: 01-16-[address] DOCTOR SUE Facility:[facility] Start: 12-06-2021 End: 12-06-2021 ambulatory Ezequiel Melo Other [facility] Other Start: 12-06-2021 Patient encounter procedure Ezequiel Melo [facility] Start: 10-11-2021 End: 10-11-2021 ambulatory Ezequiel Angiejessie Other [facility] Other Start: 10-11-2021 [facility] visit new patient Ezequiel Adamsjessie [facility] Procedures Date Procedure Procedure Detail Performing Clinician Start: 02-19-2024 ALL CBC WITH AUTO DIFF Yasmine Fernandezzio DO Work Phone: Plan of Treatment Date Care Activity Detail Author Start: 02-26-2024 End: 02-26-2024 Patient encounter procedure 02/26/2024 3:30 PM EDT Routine [facility] [address] [place] [id number] Kamryn Hawley PA [address] [place] [address] [facility] Start: 02-19-2024 End: 02-19-2024 Patient encounter procedure 02/19/2024 3:40 PM EDT Routine [facility] [address] [place] [id number] Yasmine Soni, DO [address], [place] [id number] [facility] Payers Date Payer Category Payer Unknown [employer]ONTP[employer] FRONTP ATH [id number] 2023-Present [phone] [address] [place] [id number] 2023 Unknown [id number] 2000 Unknown [id number] 2000 Unknown [id number] 2000 Unknown [id number] 2000 Unknown [id number] 2000 Unknown [id number] [id number] 2000 Unknown [id number] [id number] 2000 Unknown [id number] [id number] 2000 Unknown [id number] [id number] 2000 Unknown [id number] [id number] 2000 Unknown [id number] 1959 Unknown [id number] Medicaid [id number] Social History Date Type Detail Facility Start: 08-12-2023 Sex Assigned At [facility] Other Start: 11-07-2023 Tobacco smoking status NHIS Never smoked tobacco [facility] Start: 11-07-2023 Tobacco use and exposure Smokeless tobacco non-user [facility] Start: 02-12-2024 Alcoholic beverage intake Ex-drinker (finding) [facility] Start: 08-12-2023 End: 02-12-2024 Alcoholic beverage intake [facility] Start: 11-07-2023 Tobacco Comment never smoked never will [facility] Start: 11-07-2023 Alcohol Comment MAYBE one a month definitely not per week. [facility] Start: 06-16-2023 [facility] Start: 2000 Sex assigned at Female [facility] Start: 10-10-2022 Gender identity Identifies as female gender (finding) [facility] Start: 10-10-2022 Sexual orientation Choose not to disclose [facility] Evaluation note 12-06-2021 Note Date & Type Note Facility 12-06-2021 Evaluation note Encounter Date Diagnosis Assessment Notes Nov, Dyspepsia (ICD-10 - K30) patient states does have some bloating in the left center she does have pain noted. patient is advised that we can start levsin and refer to product scientist for food testing. [facility] Other Evaluation note 10-11-2021 Note Date & Type Note Facility 10-11-2021 Evaluation note Encounter Date Diagnosis Assessment Notes September, Bloating (ICD-10 - R14.0) September, Dyspepsia (ICD-10 - K30) September, Abdominal pain (ICD-10 - R10.9) [facility] Other Clinical Note 04-05-2021 Note Date & [...] This may take several hours. ? Take sjbs-ava-frgttrg and prescription medicines only as told by your health care provider. ? When you can walk without pain, wear supportive shoes that have stiff soles. Do not wear flip-flops, and do not walk barefoot. ? Keep all follow-up visits as told by your health care provider. This is important. Contact a health care provide (more content not included)... [facility] Clinical Note 07-29-2020 Note Date & Type Note Facility 07-29-2020 Note Patient Education Ma terials Follows:Disease Pharyngitis Pharyngitis is a sore throat (pharynx). This is when there is redness, pain, and swelling in your throat. Most of the time, this condition gets better on its own. In some cases, you may need medicine. Follow these instructions at home: ? Take hfdr-qqc-tkmblqv and prescription medicines only as told by [...] Reviewed: 06/11/2017 Elsevier Patient Education ? 2019 [facility] Clinical Note 06-18-2020 Note Date & Type Note Facility 06-18-2020 Note Patient Education Ma terials Follows: Otitis Media, Adult Otitis media means that the middle ear is red and swollen (inflamed) and full of fluid. The condition usually goes away on its own. Follow these instructions at home: ? Take pgta-xrs-ykcusdo and prescription medicines only as told by [...] Reviewed: 05/27/2017 Elsevier Patient Education ? 2019 [employer] [facility] Clinical Note 04-22-2020 Note Date & Type Note Facility 04-22-2020 Note Nasal swab performed without complication. Patient tolerated well. Education given. Patient verbalized understanding. [Electronically Signed on: 04/22/2020 15:05 EST] Miri Nuñez RN [Verified on: 04/22/2020 15:05 EST] Miri Nuñez RN [facility] History general Narrative - Reported Note Date & Type Note Facility History general Narrative - Reported Type Medical History PCOS Medical History Endometriosis Surgical History laparoscopy - endometriosis [facility] Other Reason for referral (narrative) Note Date [...] is able to get in before this. [facility] Other Reason for visit Narrative Note Date & Type Note Facility Reason for visit Narrative PATIENT HERE AT THE REQUEST OF DR. SONI FOR EVALUATION & TREATMENT OF BLOATING [facility] Other Reason for visit Narrative Note Date [...] of the side effects that were listed. [facility] Other Summary Purpose Family History No Family History Records FoundNo Family History Records FoundNo Family History Records FoundNo Family History Records Found Advance Directives No Advanced Directives Records FoundNo Advanced Directives Records FoundNo Advanced Directives Records FoundNo Advanced Directives Records Found Additional Source Comments INFORMATION SOURCE (unrecogn ized section and content) DATE CREATED AUTHOR 04/21/2021 [facility] DATE CREATED AUTHOR AUTHOR'S ORGANIZ ATION 11/08/2021 [facility] DATE CREATED AUTHOR AUTHOR'S ORGANIZ ATION 09/06/2022 [facility] DATE CREATED AUTHOR AUTHOR'S ORGANIZ ATION 01/31/2024 [facility] [employer] Care Teams (unrecognized sec tion and content) Medical Coding Instructor Relationship Specialty Start Date End Date Flex Wang MD [address] [place], [place] [id number] PCP - General Family Medicine 10/30/22 FOR RECORDS PERTAINING TO PATIENTS WHO ARE [...] BE BASED ON THE PRIMARY CLINICAL RECORDS. [employer] provides no warranty or guarantee of the accuracy or completeness of information in this document.
--- NOTE | 2024-02-25 13:46 | PC.NURSE ---
Leigh Lenny and 7 day old Mila arrive for follow up visit. Parents report tired but better compared to first days at home. Mom becomes tearful as she describes effort of pumping every 2 hours, placing baby to breast, struggling to latch as infant fights latching and then bottle feeding with some pumped milk and formula. Mom struggles with supply. Noted to have H/O PCOS, no breast changes in , type 3 breasts with wide spacing between,long tubular breasts , small nipples with puffy areola. Leigh able to pump 25-30 ml every 2 hours combined, total of 12 oz in 24 hours. Discussed expectation of milk volume for first week of life. Reviewed ways to lighten the load of pumping, feeding and care. Flange fit to Left breast 15 mm and right breast 17 mm. States will order flange inserts to aid in better flange fit. Aware supply may improve with better flange fit and reducing stress/anxiety over feeds. Leigh with VSS and assessment WNL. No concerns for herself as she feels god physically, just tired and frustrated with milk supply. Baby Mila with VSS and assessment WNL. pink with minimal jaundice. Feeds well via slow paced bottle feeding per mom. Takes 1.5 oz well. Family home without any questions at this time. Will call for support as needed.
[2024-02-25 13:48] VITALS: BP 128/87; PULSE 68; TEMP 36.7; O2SAT 98
== END 2024-02-25 11:50 | disposition home or self-care (01) ==
LOC: FBCO 08:28
PROVIDERS: Visit Provider Obstetrics & Gynecology
DX: Z39.2 Encounter for routine postpartum follow-up (principal)

== ENCOUNTER 2024-08-17 20:32 | Outpatient (REF) | payer OTHER, SELFPAY ==
--- OUTSIDE RECORDS SUMMARY | 2024-08-17 20:38 | XMS_ITS | CCD ---
Author Organization [facility] Care Team Providers Care Hotel Maintenance Worker Name Role Phone Ezequiel Melo Unavailable MIS, DR MIRANDA Primary Care Unavailable NAE ., DR UNDERWOOD Admitting Unavailable NAE ., DR UNDERWOOD Consulting Unavailable NAE ., DR UNDERWOOD Attending Unavailable MISC, DR MIRANDA Primary Care Unavailable NAE ., DR UNDERWOOD Admitting Unavailable NAE ., DR UNDERWOOD Consulting Unavailable NAE ., DR UNDERWOOD Attending Unavailable Flex Wang MD Primary Care Provider NAE, MICHAEL Attending Unavailable NAE, MICHAEL Attending Unavailable NAE, MICHAEL Attending Unavailable ZOILA, KAMRYN Attending Unavailable NAE, MICHAEL Attending Unavailable ZOILA, KAMRYN Attending Unavailable NAE, MICHAEL Attending Unavailable NAE, MICHAEL Attending Unavailable ZOILA, KAMRYN Attending Unavailable NAE, MICHAEL Attending Unavailable ZOILA, KAMRYN Attending Unavailable Allergies Allergy Classification Reported Allergen(s) Allergy Type Date of Onset Reaction(s) Facility (2 sources) Sulfacetamide Drug Allergy [facility] Mult[facility]ig Other (1 source) Sulfonamides (Antibiotic) Drug allergy (disorder) [facility] Repository (19 sources) Chocolate candy Propensity to adverse reactions 12-17-19 24 GI intolerance, Itching, Runny nose, Swelling [facility] Work Phone: (20 sources) pecan pollen extract Drug Allergy 12-17-19 24 Unknown [facility] Healthcare (20 sources) Sulfonamides (Antibiotic) Drug Intolerance 05-20-19 03 Hives, Anxiety, Dizziness, Fever, Headache, Itching, Rash, Shortness of breath, Swelling [facility] Healthcare (20 sources) Pork-Derived Products Propensity to adverse reactions 12-17-19 24 Dizziness, GI intolerance, Headache, Itching, Shortness of breath [facility] (9 sources) Alitraq Propensity to adverse reactions 01-02-20 [facility] (3 sources) Chocolate Hazelnut Flavoring Agent (Non-Screening) Propensity to adverse reactions 12-17-19 24 GI intolerance, Itching, Runny nose, Swelling [facility] Work Phone: Medications Current Medications Medication Drug Class(es) Dates Sig (Normalized) Sig (Original) {21 (ethinyl estradiol 0.03 MG / levonorgestrel 0.15 MG Oral Tablet) / 7 (inert ingredients 1 MG Oral Tablet) } Pack [Levora 0.15/30 Day] (1 source) Progestin, Estrogen, Progestin-containin g Intrauterine Device take 1 tablet by mouth every twenty-four hours Levora 0.15/30 () 0.15-30 MG-MCG 1 tablet Orally Once a day Active hydrOXYzine (1 source) Antihistamine hydrOXYzine HCl Active hyoscyamine sulfate 0.125 mg oral tablet (1 source) Start: 12-06-2021 take 1 tablet by mouth every eight hours Hyoscyamine Sulfate 0.125 MG 1 tablet as needed Orally Three times a day for 90 day(s) Nov, Active MV-Min-Fe Fum-FA-DHA ( 1 PO) (20 sources) MV-Min-Fe Fum-FA-DHA ( 1 PO) Take 1 each by mouth Daily Active Completed/Discontinued Medications Medication Drug Class(es) Dates Sig (Normalized) Sig (Original) citalopram 20 mg oral tablet (17 sources) Serotonin Reuptake Inhibitor Start: 10-03-2023 End: 10-02-2024 take 1 tablet by mouth once daily citalopram (CeleXA) 20 MG tablet Indications: Anxiety, generalized (CMS/HCC) Take 1 tablet (20 mg) by mouth Daily 30 tablet 11 10/03/2023 03/04/2024 Discontinued cyclobenzaprine hydrochloride 5 mg oral tablet (11 sources) Muscle Relaxant Start: 01-29-2024 End: 03-04-2024 take 1 tablet by mouth three times daily as needed for muscle spasms cyclobenzaprine (Flexeril) 5 MG tablet Indications: Back pain in Take 1 tablet (5 mg) by mouth 3 (three) times a day as needed for muscle spasms for up to 10 days 30 tablet 01/29/2024 03/04/2024 Discontinued doxycycline hyclate 100 mg oral tablet (3 sources) Tetracycline-cl ass Drug Start: 08-29-2022 End: 01-16-2024 doxycycline (Vibra-Tabs) 100 MG tablet every 12 (twelve) hours 08/29/2022 01/16/2024 Discontinued labetalol hydrochloride 100 mg oral tablet (20 sources) beta-Adrenergic Elaine Start: 01-16-2024 End: 01-15-2025 take 1 tablet by mouth in the morning labetalol (Normodyne) 100 MG tablet Indications: 32 weeks gestation of , induced hypertension, antepartum Take 1 tablet (100 mg) by mouth in the morning and 1 tablet (100 mg) before bedtime. 60 tablet 11 01/16/2024 03/04/2024 Discontinued End: 04-01-2024 take 1 tablet by mouth once labetalol (Normodyne) 200 MG tablet Take 200 mg by mouth 1 (one) time 04/01/2024 Discontinued (Other) metFORMIN (1 source) Biguanide metFORMIN HCl Not-Taking norethindrone 0.35 mg oral tablet (5 sources) Start: 04-01-20 End: 04-01-20 25 take 1 tablet by mouth once daily norethindrone (Micronor) 0.35 MG tablet Indications: control counseling Take 1 tablet (0.35 mg) by mouth Daily 28 tablet 11 04/01/2024 08/17/2024 Discontinued (Side effects) omeprazole 20 mg delayed release oral capsule (11 sources) Proton Pump Inhibitor Start: 01-29-20 24 End: 03-04-20 24 take 1 capsule by mouth before mealtime omeprazole (PriLOSEC) [address] capsule Indications: Gastroesophageal Reflux Disease , Heartburn Take 1 capsule (20 mg) by mouth in the morning. Take before meals. Do not crush or chew.. 30 capsule 3 01/29/2024 03/04/2024 Discontinued [place]-28 (2 sources) Adrienne-28 Not-Ta yadira [place]- Active Problems Active Problems Problem Classification Problem Date Documented Da te Episodic/Chronic Abdominal pain (3 sources) Abdominal pain; Translations: [Unspecified abdominal pain] Onset: 2 Resolved: 2 Episodic Contraceptive and procreative management (2 sources) Patient encounter status; Translations: [Encounter for other general counseling and advice on contraception] 04-01-2024 Episodic Endometriosis (20 sources) Endometriosis (clinical); Translations: [Endometriosis, unspecified] Onset: 4 08-12-2023 Chronic Immunizations and screening for infectious disease (1 source) Encounter for screening for human papillomavirus (HPV); Translations: [ENC SCREENING HUMAN PAPILLOMAVIRUS] Onset: 3 Episodic Other complications of (2 sources) Gastroesophageal reflux disease in ; Translations: [Diseases of the digestive system complicating , unspecified trimester] 01-29-2024 Episodic Other complications of (2 sources) Backache; Translations: [Back pain in ] 01-29-2024 Episodic Other disorders of stomach and duodenum (2 sources) Indigestion; Translations: [Functional dyspepsia] Episodic Other endocrine disorders (1 source) Polycystic ovarian syndrome; Translations: [POLYCYSTIC OVARIAN SYNDROME] Onset: 2 Chronic Other gastrointestinal disorders (2 sources) Swollen abdomen; Translations: [Abdominal distension (gaseous)] Episodic Other and delivery including normal (6 sources) care status; Translations: [Encounter for routine follow-up] 02-25-2024 Episodic Other screening for suspected conditions (not mental disorders or infectious disease) (4 sources) Encounter for screening for malignant neoplasm of cervix; Translations: [ENC SCREENING MALIG NEOPLASM CERV] Onset: 3 Episodic Residual codes; unclassified (2 sources) Gestation period, 36 weeks; Translations: [36 weeks gestation of ] 02-12-2024 Episodic Residual codes; unclassified (2 sources) Gestation period, 34 weeks; Translations: [34 weeks gestation of ] 01-29-2024 Episodic Past or Other Problems Problem Classification Problem Date Documented Da te Episodic/Chronic Hypertension complicating ; childbirth and the puerperium (2 sources) -induced hypertension; Translations: [Gestational [-induced] hypertension without significant proteinuria, unspecified trimester] 01-16-2024 Episodic Other complications of (2 sources) Excessive growth affecting management of mother; Translations: [Maternal care for excessive growth, third trimester, not applicable or unspecified] 01-16-2024 Episodic Other disorders of stomach and duodenum (2 sources) Functional dyspepsia Onset: 10-11-2021 Resolved: 12-06-2021 Episodic Other gastrointestinal disorders (1 source) Abdominal distension (gaseous) Onset: 10-11-2021 Resolved: 10-11-2021 Episodic Other nutritional; endocrine; and metabolic disorders (4 sources) Abnormal weight gain; Translations: [ABNORMAL WEIGHT GAIN] Onset: 01-12-2022 Episodic Residual codes; unclassified (2 sources) Gestation period, 32 weeks; Translations: [32 weeks gestation of ] 01-16-2024 Episodic Results Test Name Value Interpretation Reference Range Facility HCG ( test) Ql (U)o n 08-17-2024 Interpretation and review of laboratory results Normal [facility] Preg Test, Ur Negative Negative [facility] Urinalysis macro (dipstick) panel (U)on 08-17-2024 Bilirubin, UA Negative Negative - 4(70) +++ mg/dL [facility] Blood, UA Positive Negative - 50 Stevo/mcL [facility] Comment on above: trace Clarity, UA Clear [facility] Color, UA Yellow [facility] Glucose, UA Negative Negative - 1999(110) ++++ mg/dL [facility] Interpretation and review of laboratory results Normal [facility] Ketones, UA Negative Negative - 160(16) ++++ mg/dL [facility] Leukocytes, UA Negative Negative - 500+++ Giovana/mcL [facility] Nitrite, UA Negative Negative - Positive [facility] pH, UA 6.5 5 - 9 [facility] Protein, UA Negative Negative - 1999(20) ++++ mg/dL [facility] Spec Grav, UA 1.01 1 - 1.03 [facility] Urobilinogen, UA 0.2 0.2 - 12 mg/dL [facility] ALL CBC WITH AUTO DIFFon BASOPHILS ABSOLUTE AUTO 0.0 [facility] Basophils/100 WBC (Bld) 0.4 % 0.2 - 2.0 % [facility] Eosinophils/100 WBC (Bld) 0.7 % Low 0.9 - 7.0 % [facility] Erythrocyte distribution width (RBC) [Ratio] 15.2 % High 11.0 - 15.0 % [facility] Hematocrit (Bld) [Volume fraction] 25.2 % Low 36.0 - 48.0 % [facility] Hemoglobin (Bld) [Mass/Vol] 8.1 g/dL Low 12.0 - 16.0 g/dL [facility] IMMATURE GRANULOCYTES ABS AUTO 0.02 [facility] Immature granulocytes/100 WBC (Bld) 0.3 % 0.0 - 0.5 % [facility] Interpretation and review of laboratory results Abnormal [facility] LYMPHOCYTES ABSOLUTE AUTO 1.9 [facility] Lymphocytes/100 WBC (Bld) 26.2 % 20.5 - 60.0 % [facility] MCH (RBC) [Entitic mass] 28.0 pg 26.7 - 34.0 pg [facility] MCHC (RBC) [Mass/Vol] 32.1 g/dL 29.9 - 35.2 g/dL [facility] MCV (RBC) [Entitic vol] 87.2 fL 81.0 - 99.0 fL [facility] MONOCYTES ABSOLUTE AUTO 0.6 [facility] Monocytes/100 WBC (Bld) 7.9 % 1.7 - 12.0 % [facility] NEUTROPHILS ABSOLUTE AUTO 4.6 [facility] Neutrophils/100 WBC (Bld) 64.5 % 43.0 - 75.0 % [facility] Platelet mean volume (Bld) [Entitic vol] 11.1 fL 9.5 - 13.[address] [facility]1 [facility] PLT 169 [facility] RBC 2.89 Low [facility] WBC 7.1 [facility] ALL CBC WITH AUTO DIFFon BASOPHILS ABSOLUTE AUTO 0.0 [facility] Basophils/100 WBC (Bld) 0.2 % 0.2 - 2.0 % [facility] Eosinophils/100 WBC (Bld) 0.7 % Low 0.9 - 7.0 % [facility] Erythrocyte distribution width (RBC) [Ratio] 14.8 % 11.0 - 15.0 % [facility] Hematocrit (Bld) [Volume fraction] 34.1 % Low 36.0 - 48.0 % [facility] Hemoglobin (Bld) [Mass/Vol] 11.0 g/dL Low 12.0 - 16.0 g/dL [facility] IMMATURE GRANULOCYTES ABS AUTO 0.02 [facility] Immature granulocytes/100 WBC (Bld) 0.2 % 0.0 - 0.5 % [facility] Interpretation and review of laboratory results Abnormal [facility] LYMPHOCYTES ABSOLUTE AUTO 1.7 [facility] Lymphocytes/100 WBC (Bld) 21.6 % 20.5 - 60.0 % [facility] MCH (RBC) [Entitic mass] 27.8 pg 26.7 - 34.0 pg [facility] MCHC (RBC) [Mass/Vol] 32.3 g/dL 29.9 - 35.2 g/dL [facility] MCV (RBC) [Entitic vol] 86.1 fL 81.0 - 99.0 fL [facility] MONOCYTES ABSOLUTE AUTO 0.6 [facility] Monocytes/100 WBC (Bld) 7.3 % 1.7 - 12.0 % [facility] NEUTROPHILS ABSOLUTE AUTO 5.6 [facility] Neutrophils/100 WBC (Bld) 70.0 % 43.0 - 75.0 % [facility] Platelet mean volume (Bld) [Entitic vol] 10.4 fL 9.5 - 13.5 fL [facility]H EO # 0.1 [facility] PLT 237 [facility] RBC 3.96 Low [facility] WBC 8.0 [facility] Urinalysis macro (dipstick) panel (U)on 02-12-2024 Bilirubin, UA Negative Negative - 4(70) +++ mg/dL [facility] Blood, UA Negative Negative - 50 Stevo/mcL [facility] Clarity, UA Clear [facility] Color, UA Yellow [facility] Glucose, UA Negative Negative - 1999(110) ++++ mg/dL [facility] Interpretation and review of laboratory results Abnormal [facility] Ketones, UA Negative Negative - 160(16) ++++ mg/dL [facility] Leukocytes, UA Positive Negative - 500+++ Giovana/mcL [facility] Comment on above: small Nitrite, UA Negative Negative - Positive [facility] pH, UA 7.0 5 - 9 [facility] Protein, UA Negative Negative - 1999(20) ++++ mg/dL [facility] Spec Grav, UA 1.015 1 - 1.03 [facility] Urobilinogen, UA 0.2 0.2 - 12 mg/dL [facility] Urinalysis macro (dipstick) panel (U)on 01-29-2024 Bilirubin, UA Negative Negative - 4(70) +++ mg/dL [facility] Blood, UA Negative Negative - 50 Stevo/mcL [facility] Clarity, UA Clear [facility] Color, UA Yellow [facility] Glucose, UA Negative Negative - 1999(110) ++++ mg/dL [facility] Interpretation and review of laboratory results Abnormal [facility] Ketones, UA Negative Negative - 160(16) ++++ mg/dL [facility] Leukocytes, UA Trace Negative - 500+++ Giovana/mcL [facility] Nitrite, UA Negative Negative - Positive [facility] pH, UA 6.0 5 - 9 [facility] Protein, UA Negative Negative - 1999(20) ++++ mg/dL [facility] Spec Grav, UA 1.015 1 - 1.03 [facility] Urobilinogen, UA 0.2 0.2 - 12 mg/dL [facility] TB TOTAL PROTEIN 24 HOUR UR INEon 01-19-2024 Interpretation and review of laboratory results Abnormal [facility] Protein (U) [Mass/Vol] 9.6 mg/dL [facility] - 11.9 mg/dL [facility] TOTAL PROTEIN 24 HOUR URINE 283.2 High [facility] TOTAL VOLUME 24 HOUR URINE 2950 mL/24hr [facility] 01-16-2024 aPTT Coag (Bld) [Time] 30.2 s [facility] No Panel Informationon 01-[facility] SRM[facility]H PROTHROMBIN TIME INR W/O COUMon 01-16-2024 PT Coag (PPP) [Time] 10.3 s [facility] TB INR 0.97 [facility] Comment on above: DESIRED INR: 2.0-3.0 CONDITIONS NOT LISTED BELOW 2.5-3.5 FOR PROSTHETIC HEART VALVE REPLACEMENT 2.5-3.5 RECURRENT THROMBOSIS Urinalysis macro (dipstick) panel (U)on 01-16-2024 Bilirubin, UA Negative Negative - 4(70) +++ mg/dL [facility] Blood, UA Negative Negative - 50 Stevo/mcL [facility] Clarity, UA Clear [facility] Color, UA Yellow [facility] Glucose, UA Negative Negative - 1999(110) ++++ mg/dL [facility] Interpretation and review of laboratory results Abnormal [facility] Ketones, UA Negative Negative - 160(16) ++++ mg/dL [facility] Leukocytes, UA Trace Negative - 500+++ Giovana/mcL [facility] Nitrite, UA Negative Negative - Positive [facility] pH, UA 7.0 5 - 9 [facility] Protein, UA Negative Negative - 2000(20) ++++ mg/dL [facility] Spec Grav, UA 1.015 1 - 1.03 [facility] Urobilinogen, UA 0.2 0.2 - 12 mg/dL [facility] PAP ACOG PANEL 2: 21 to 29on 09-06-2022 . . Normal [place] Comment on above: Performed By: #### [id number] #### [facility] [address] [place] [address] Dr. Dat Wesley Age Gdln ACOG Testing - [facility] Comment on above: Performed By: #### [id number] #### [facility] [address] [place] [address] Dr. Dat Wesley DIAGNOSIS: Comment [facility] Comment on above: Result Comment: NEGA TIVE FOR INTRAEPITHELIAL LESION OR MALIGNANCY. Performed By: #### [id number] #### [facility] [address] [place] [address] Dr. Dat Wesley Methodology: Comment [facility] Comment on above: Result Comment: This liquid based ThinPrep(R) pap test was screened with the use of an image guided system. Performed By: #### 4 [id number] #### [facility] [address] [place] [address] Dr. Dat Wesley Note: Comment [facility] Comment on above: Result Comment: The Pap smear is a screening test designed to aid in the detection of premalignant and malignant conditions of the uterine cervix. It is not a diagnostic procedure and should not be used as the sole means of detecting cervical cancer. Both false-positive and false-negative reports do occur. . Performed By: #### 4 [id number] #### [facility] [address] [place] [address] Dr. Dat Wesley Performed by: Comment Normal [facility] Comment on above: Result Comment: Singh Sanders, Customs And Border Protection Officer (ASCP) Performed By: #### 4 [id number] #### [facility] [address] [address] [address] Dat Wesley Reflex Criteria: Comment Normal [facility] Comment on above: Result Comment: The HPV DNA reflex criteria were not met with this specimen result therefore, no HPV testing was performed. . Performed By: #### 4 [id number] #### [facility] [address] [address] [address] Dat Wesley Specimen adequacy: Comment Normal [facility] Comment on above: Result Comment: Sati sfactory for evaluation. Endocervical and/or squamous metaplastic cells (endocervical component) are present. Performed By: #### 4 [id number] #### [facility] [address] [address] [address] Dat Wesley HCG,Urineon 11-03-2021 Beta HCG ( test) Ql (U) Negative Normal [facility] Comment on above: Result Comment: PERF ORMED BY: [place] [address] PATHOLOGIST FISCAL TECHNICIAN SULTANA PETE M.D. Performed By: #### U HCG #### [address] 11-03-2021 L Specimen: [id number] Received: 11/03/21 Status: AYDIN Alex Num: [id number] Spec Type: Surgical Subm Dr: Ezequiel Melo MD Tissues: A Small Intestine - Biopsy/Polyp (SMALL BOWEL) Procedures: HE Stain/2, Gross/Micro L4 Patient Age/Sex Location Account Attending Physician JuanLeigh villatoro Rafa [id number] Ezequiel Melo MD SPEC NUM: [id number] RECD: 11/03/21 STATUS: AYDIN JOHNSON NUM: [id number] PAPI: 11/03/21-[address] [facility] [address]: Ezequiel Melo MD ENTERED: 11/03/21-1132 [facility] DR: LANDRY TYPE: Surgical DEPT: S ORDERED: HE Stain/2, [...] Type of Fixative: 10% Neutral Buffered Formalin (MIKC/YKate) Microscopic Description Two H E stained slides are reviewed. Microscopic examination is performed. This case is interpreted at [facility], [place], [place] Specimen: [id number] Received: 11/03/21 Status: AYDIN Johnson Num: [id number] Spec Type: Surgical Subm Dr: Ezequiel Melo MD Tissues: A Small Intestine - Biopsy/Polyp (SMALL BOWEL) Procedures: HE Stain/2, Gross/Micro L4 Patient: Leigh Singh [id number] (Continued) Specimen: Received: 11/03/21 (Continued) Signed (signature on file) Gabe Ellis MD 11/06/21 1703 Specimen: Received: 11/03/21 Status: AYDIN Johnson Num: [id number] Spec Type: Surgical Subm Dr: Ezequiel Melo MD Tissues: A Small Intestine - Biopsy/Polyp (SMALL BOWEL) Procedures: HE Stain/2, Gross/Micro L4 Patient: Leigh Singh [id number] (Continued) Specimen: Received: 11/03/21 (Continued) CPT Codes 68580 Specimen: [id number] Received: 11/03/21 Status: AYDIN Johnson Num: [id number] Spec Type: Surgical Subm Dr: Ezequiel Melo MD Tissues: A Small Intestine - Biopsy/Polyp (SMALL BOWEL) Procedures: HE Stain/2, Gross/Micro L4 Patient: Leigh Singh [id number] (Continued) Signed (signature on file) Gabe Ellis MD 11/06/21 1703 Normal [facility] SARS-CoV-2 (COVID-19) RNA OZZIE+probe Ql (Unsp spec) Negative Normal Negative [facility] Comment on above: Order Comment: Healt hcare Worker?: N Result Comment: Testing for SARS-CoV-2 by RT-PCR This test was developed and its performance characteristics determined by [place]) and validated at the [facility]. [...] is terminated or revoked sooner. PERFORMED BY: [place] [id number] PATHOLOGIST FISCAL TECHNICIAN SULTANA PETE M.D. Performed By: #### C OVID 19 [facility] #### [place] [id number] [facility] Coding Summary 04-19-2021 Coding Summary HTMLBase 64 WhdabaluOPe2jWi+PGhl YWQ+HT9XKSGvX66rbBPb cN2VY8aDYE7YQTRQDBCH NC8XSR2yvVK0PQtkE2Xt biAv LoenfQLzEV33SGo9SZZ2 sBopKDbpwX2yiKMyG5n9 ZvUqCL50gJ12XNwaFZLe JyW3ScSotqknrXHz P2vzNoDaqTVpVfp+PHRh YmxlIHdpZHRoPScxMDAl ImMjzUotAG0yLl6uVMQy LWNvbGxhcHNlOiBj e6ifPBTkTYbxYJ0liHne C4WueZJ3EDQtc2z5Aa73 dHI+IUGmYAV7jBeiTZuu f043UjWjv0qjPJG9 tQYzMCsbIHS4J61se1I8 GBCqACCrUVZ1vHB7fP9i aZiralbvD8UwwFVyZcJ5 HHM5oLNjzC9hjQfb hgautO5jYnb+R58QQD4R PDOWSQ4QOkv6U0LcOflp dHI+VZ86VSCyFL58sNTe lCQcp6qnoKc7PiBa VXCtHOP5yBlgJTtkg0Az ENItN18kaHEah0H4LBQi rAkmqBRfEbNgcOE1vQ6u WEusuludq0njzntu Hxnuy5kkiu83bI78P43a ADecCCHwGWB3PIPzAUYe cTkrdm4pdL8rNs6+IDxj p7bco7stfGo9HuPz NUEkhxRnmAcpWFR4r5Gx Rb33N1XucWnri5ToQtu3 fa85sCXtz2M7fWM6KYvt JDVlkK9qWOsdMmT4 DHZfWtZzwD99fLGcSQaq Ro4xwNkrjEuwIH1bCGWl ekpdJSOeeA5gOIErkMMo nXohIW9sVLHymfgc t497RvQbUHR2BRSkaICn O4LkfP7zOuTlVHEdNLHl V4YtfJKeITxcK999TGjt OnL4GICjozAlD4Sc GFMvqZbbOgX3j4L4Cx1Y q7ZurwdhTIC8LXiuDUHu YuRbJiUxPfL0Q5JsKcx6 PPQfmDhzHO3wM8Tf CKOaccamvfukkUZ8JFHa KUBjvI77vDJuSQifLa1o g4L9r612NMMbRYDnsE76 Yf9icEzsCQFkqVZR bS8rsvzqz5naxsqaOqMq BUAdBYg7UHq0VMRggHgj JjTmOYV2EnY0AFD0uPCk zO2lfZsrkqdirA0u Oyc+H94xnM2hHLV4YGK6 bejgEIHrjnQuCH17ZY17 U2IsMcwxxFSpiKV+PGRp joMhcJxiTJ4wLbPu n1ydh8HxYCdkJ4PaPXUr BYrdIbz7OVVmBWP7vIB2 uZ2fBQGnKAgko4O7rFA7 H6RusnQsqv4ue4jb CUHzZKocW01mfDKzo3Z5 XZZjzHF2EOZvxLseYhJu yW81Esw+SETsoPkdn7Ub Gjnqc8hyb5xdxRe0 IjMwJSIgdmFsaWduPSJ0 j0KeKj54Y24mGGdlSHBq GBZkKEJeTAIneHhvjq4m sU0aZx4+PGNvbCB3 eBN5yG5eZPMmUjA7ECoa Q276JjNzeSMnKmgjl4mp j6bzcWw8LtVcRLYzzyXr rYbeYHB5f7XrNy45 O57xGNnkPZPqRPAzNINp BHInwWnnqi8tsL3vUp4+ ID7fm0znqg20pV49aKV+ XQZmTSV4kPjaFOmb DUXmuV7jRQvbWbQ3IAXy YoQpsZ35qTRgXThqBx4j wZtdhUvxUL1hNCZasqcc i537DuKaq7lqCAFv dCCyZYvbXVJ4D28zo4I0 DCCkTJNpEMK5lEP1tE3i bGlnbjogbGVmdDsgdmVy bRavZOqmAJabS380 IHRvcDsnPlBhdGllbnQg CmOvRQo1K9IhEib1IEEv wEzjBP8eyFGfZAmuZj5t zLhzuZdjYV2fZXFv thsue913SsTgd8nfNLHf dJZnMAvoOOX4D41vs2F6 RAUcJIXmBSD6tOY7bN1y bGlnbjogbGVmdDsg qlEvvQnfGNdhVNtyR323 IHRvcDsnPkJpcnRoIERh tPN6YB95CN64rIMgh1G4 pOQ5O9MqGGWypfrl bbdooZK3TUPuZWKugO51 Zc4iuPyoCl6sVUEcVIP0 OGPbhTAmF1CfqO0zBbGy CWCyKNAxJ7VomAKt GWmmH240UZfhBhM8HQTo hdMfZ9RsHSFpcJrzUyV4 t9D9Zp9DD3R5CU06PV07 oKAdf3U4eDL7M8Qr MBUmvuuhuvqrvNK1CUDd SYZnuS50Tw2egObpLp0i KWFlVGA9ULYigBBdO1Wl qG9cIjPvZYZqZEQd M8RhuUUlQFamV906YXps UnD9AUVxefWlG5NzLTOr gZwlGyK9s2T4Ld1VOXw0 NZ79YM30mXRfp3Y5 mGM3A2JnEOOqnncdoduv qBW3FJVoBZJfpN31De6x jCveSn5vGQClLLB1AHFe xOTlM5JeyC7xWdGj YJCdMBCiJ9RfdMMsKIml K365IBonXyR8SMVvqoGo T8FtMHThnIjbFrA7t9N0 Fn6WZYBtWT05BTK5 lKM8NH46LV62I4LdCooh dGFibGU+PHRhYmxlIHdp ZHRoPScxMDAlJyBzdHls EL6wMo0jYPYxCYTq aZbmyCSsGuTib2iuCHXw NUceOT1fnDzuS9ZyiZD1 INMth6o1Oq54I84vG5Mc dXA+TRWjjNI4mYO6 yT3mFqMcMrR5BWiaH617 KaQqvBXuEzrli2krw8yc nZx8PbB6XXTpgpBulOkl UIU2j6OzLz43L38x IHdpZHRoPSIxNSUiIHZh yEmkyc6sgJ1fMf1+PGNv oTH0lFJ7dW5kIgXdZpE4 ZKmmT157EdAalMWb Qmbla3sfw9vosWl8WhQj HJFmhdKgoKefKVQ1q4Fk Zq96P5XrxTfvr7IzPuw1 bc66sAVkd2S1rZM5 K7DtUXCeamlrxKCklQjn BE9nLZMqjiluCMFenF4a VDDxW4a2HfFpPiJ2KVdt I7KdvkC8LLBdjJLv XYrbDOY0G44vq3V5HAKb QCHvKNJ1iVP0hM3gfDqx bjogbGVmdDsgdmVydGlj JJsuBQcaI246WZEy wDfnZMZnbK0kKMBriFNi pZjgNH7uNLGkjigjCxSB SUREWSwgSEFOTkFIIEdS RHJTDY41JD02tESi j7U2xAR1D8VvYAPvanjt mlxtdFG6MJUyBVNjqB83 dHTdLZlrAd8gy3Z1x588 XUZgIMEfiC16Aj9p fVjhQQUrgNSBsM1jllsb c4orbkkaCpAhTGAlOWl5 BXw0OFGspQkdElVjVGF7 RxS8ODK1oDSeiK6g mMbpjzhsrN0eCkl+MDMv MDkvMjAwMTwvdGQ+PHRk QWN6oQavVSmzOGIuaJ9x MDEjU8m0ItPbYbI9 DHhsJ8IwIXXrpmjlQi46 jU1iPnTrJiT8IKigZ3Lp phE3TLIktPMqGEhrHLW4 H97xd8Y8MITrHZLq VIK7kXO7wH2ypCqjmeum bGVmdDsgdmVydGljYWwt TMmmC767DZCjpPqlIwPj KNqpIPOsXD77OP74 wJWdv4U4uXX6E9MbFIPe xvejhrwzjGU1IMPiZSUn cG78mEGeHLilOd4as0C1 q509BVPiFEHupH06 Cy3mpFrlRRWslBCFyC0c mxwba8aknpuuMsGvJXKf GZr3EBp8SKWthSbqSoNb DDA9IpA5TCU7bPCw sM8vvXegqnmokL4zAxu+ WlRLYPhYPB66IM37aGYp w3M5bQL1F1RzVRKllgyf fjscnWC7BFDeYGXg zL43fLCjBRxrLz8eg2D6 n816ZUCpHZVxgP10Al4l eJlcDSAmtZIXyJ9cjywe q6tandfzRgNaRFCi HEd1NVj9SAWgmWwlChXs IVT4XxV8EXR3lMUomM1f rAfmxadddS7bQtn+T1A8 Y5KaZevopKZ+PC90 VDJgJZ04iEKpdTBdc3ks bUl2EeYtRSGgJLD3xGtf EBraa2NmNUGjS50nyZDu h0Y9INDrqSmxjEHy XoZdfOX6zI8dOSsyjvxk g1krzzzxHuogu4elog23 lM67P89xSYmwZWWqUYFi ILEmEUIhtSznia9w rH4cQe1+WLBolVR9hCO6 oJ0zSxWcNmX8VMtmD775 GaWgbPTuPxlof0knb4jq bUd3DqNsNKShshGk hRjiHQH0a6BwSc84Y62a IHdpZHRoPSIyMCUiIHZh pEcnxo0ghQ6tXd0+PC9j e9npbw97oI53wKI+ CRCtFHS0dBkiUFlgSSEr cT7iYWhcIoX5IPOyKfUl gP15uELxVDznNp4ldNix kOieJU2aMNTnxzix w450TzIut1mmYSIckWYt ZGcdCUF8S09nc7X8JMVu AUUqKVY3xBI9xQ5cwCfo bjogbGVmdDsgdmVy gVikUGngUCdkT721ZIBz nMrvTfJffTSuJ4uumqAO KW4hPxshgZR+PHRkIHN0 tCchWKlrODIvpV1b QMHyG7f8GoQnTvZ4VFvd S4WkpxG7KVRgkZNfISFe nDKLcN3wnpguu3lngiei WuVrRULkLFd7REh4 GQQjzYxnXgEgXQH1CoD9 GEG8bHVoxD8qjHvyciie xJ3pBdy+RklOOjwvdGQ+ GQMvTCX1pTxtZGqq VQPspJ6nEGMuP9x0AcGo ByX4NDngN0ZcajF4EQAq sSVyMEQzxPJXrJ5qxeyx u5xbhmcjOdWzGMGt CFu2ZMz3FPYtyIkmLnJx MNS1FqL4DHM7dSWfcV3h iScpgruesV0qJdh+TVJO OjwvdGQ+PHRkIHN0 yOkeCBnkRJKvrP6fRHJs S3q9OvQeOwJ4EQgtR0Yd nmC2KVQwpYVkUZYljEMY vU0zpmsgt4gnnnxo EaVvGBJvKBt2AAw4XSBn kOxrFlTkYKE8CoW3CAJ3 rTVpuQ9woNpdilrwxN2a Oyc+IWK8ENV5SU82 PR52T9GoOgqrjFOwbYG+ PHRhYmxlIHdpZHRoPScx FUYtQfWhpZedPS1iNx5w ZGVyLWNvbGxhcHNl OiB (more content not included)... Normal [facility] Urgent Care Note- Provideron 04-06-2021 Urgent Care Note- Provider Patient: LEIGH TRINIDAD Age: 20 years Sex: FEMALE : 2000 [...] and Plan Diagnosis Sprain of left foot ([id number] S93.602A, Discharge, Medical) Plan Condition: Stable. Disposition: [...] she can arrange follow-up as needed. Normal [facility] ED Clinical Summaryon 2020 ED Clinical Summary [facility] ? Urgent Care [address] [place] [address] [id number] Clinical Summary PERSON INFORMATION Name: LEIGH TRINIDAD Age: 20 Years Sex: FEMALE : 2000 MRN: Acct#: Visit Reason: UC - Ankle/Foot/Toe Pain or Swelling; LEFT FOOT PAIN Arrival: 04/05/2021 16:12:07 Discharge: 04/05/2021 17:50:00 LOS: 000 01:38 Check In: 04/05/2021 16:12:07 Checkout: 04/05/2021 17:50:00 Address: [facility] [address] PCP: Flex Wang DO PROVIDER INFORMATION Provider Role Assigned Unassigned Monica Dunn COMPLAINT COORDINATOR Nurse 04/05/2021 16:14:32 Paul Atkins-C ED PA [...] Sprain Follow-Up: With: Address: When: JEFF JESUS [address] [place] [address] [facility] (1) , only if needed With: Address: When: Flex Wang [address] [facility] [address] [place], [place] [id number] Business (1) Within 3 to 5 days DIAGNOSIS: Sprain of left foot Patient Understands: Yes - Patient/family/careg iver verbalizes understanding of instructions given Comment: Normal [facility] ED Patient Summaryon 021 ED Patient Summary [facility] ? Urgent Care [address] [place] [address] PATIENT DISCHARGE INSTRUCTIONS Patient Information Name: LEIGH TRINIDAD Age: 20 Years Date of : 2000 Reason For Visit: UC - Ankle/Foot/Toe Pain or Swelling; LEFT FOOT PAIN Arrival Time: 04/05/2021 16:12:07 Primary Care Physician: Flex Wang DO Attending Physician: Nirav Nunez Comment: Patient Education With: Address: When: JEFF JESUS [address] [place] [address] [facility] (1) , only if needed With: Address: When: Flex Wang [address] [place], [place] [id number] [facility] (1) Within 3 to 5 days Foot [...] ? As (more content not included)... Normal [facility] Urgent Care Recordon 021 Urgent Care Record [facility] ? Urgent Care [address] [place] [address] PATIENT DISCHARGE INSTRUCTIONS Patient Information Name: LEIGH TRINIDAD Age: 20 Years Date of : 2000 Reason For Visit: UC - Ankle/Foot/Toe Pain or Swelling; LEFT FOOT PAIN Arrival Time: 04/05/2021 16:12:07 Primary Care Physician: Flex Wang DO Attending Physician: Nirav Nunez Comment: Visit Diagnosis: Diagnoses This Visit Sprain of left foot (S93.602A) UC - Ankle/Foot/Toe Pain or Swelling ([id number]) If you received any narcotics, sedation, or [...] documents With: Address: When: JEFF JESUS [address] [address] Business (1) , only if needed With: Address: When: Flex Wang [address] [facility], [place] [address] Business (1) Within 3 to 5 days Medication Information: The exam and treatment you received today in the [facility] were for an urgent problem and are not intended as complete care. It is important for you to follow up with a doctor, nurse practitioner, or physician?s criminal legal assistant for ongoing care. If your [...] so we can reach you if necessary. [facility] has provided you with a complete list of medications post discharge. Please inform your business development consultant/provider of your visit and for further instruction [...] are no br (more content not included)... Normal [facility] XR Foot Complete Lefton 11- XR Foot Complete Left CLINICAL HISTORY: Pain. [...] Fernandez 04/06/21 8:27 am Technologist: NELIDA [facility] Coding Summaryon 08-01-2020 Coding Summary HTMLBase 64 BjkrbmsdYVv6pOn+PGhl YWQ+HA3IFDKqT01awLKg tB1DZ4hHVG7MXRQGQQWF JH2SPL3gsAF8BRhdL1Dq biAv BcqkbCHzAR91AXb4OIP4 gAuiUVhxsE0ceJDlK6y3 EfAhAW51gU36EXsxYMYk DaU4RhWbviwjxGNb F2keGjQajFOiGnx+PHRh YmxlIHdpZHRoPScxMDAl ZaThdQjqPL0oWi7qERPj LWNvbGxhcHNlOiBj y0wjPHUrXNpeUP0jhFbv Z2MmyYQ7JTHai4h6Pk66 dHI+XKCsWAG0bRpvABrk e116QnVno7moRVG3 lHHoIPokBNS5C02zf7P9 JLFfLLZxOLM6lNS2nH2h wCzpphpvO6GdwNVzVkV7 JEW0kZSrsS5btDax ueyzaR4cFqu+D91PXO3M URQBUF4VGix5W7PdVkff dHI+WU71NYJeJS59dQZd nHNth2slgKf8MrVx NUYtJNV4eAtzKAnmu5Xk PBGjS17elBFpp7Z2NLZp bKlfcWMfJxLqoNG5bR4l BVnpnhpul5elgtqq Wvuwp5jfvh34yW93F03f XDnjJLGmDXW9QVUfDLXv pLucmq5sfF5lVt1+IDxj i2zbm8rpxMx7DrYn HCYbbqTziLdoDMH0p5Xy Ua15F2VlcZedk1NwHnr9 ve98yIMrg0H8dTE2CHqv QWRlyD2xLYdqFmT8 MOGyLxIliZ36cAOgRBnp Vb5afQroxGzhTN7qMHOu bvsmUXUmwM6lMSWamFPe cRyrZT7yHSJplmkd t721ZuSiSHO1EFTjfZZs I5JasM3fKiJzTJBaWRSm H2HlfBFtKNvgH873BMds IkP2LQQkqkKmL9Jq YLXorMyyQmW7z1I5Yq3V y8IhyfihAMP1PQehQDDy IvT5McDtAhW6V0LdXlf5 OUMncHbjKP6uO3Fj LORdckknyezzvOJ3JHIi CDPmjU07wSHsYSxoTj7m c2D9x735GBDkWSKyzW43 Jl3zhJtxNJVgyFVW yY3enuyqx1iduoauNwIw MAFoNZh5QRy4PTOuyFkd SwDqIZV5RsE6ZCO9yVQq uK7omFvudrnomD0i Oyc+N09izR9wQHG0HCC5 tdpgRSAcgkKoWC72HD59 E3StEbqqyXIyuUE+PGRp jqCuyKmrWX5yDlWd t9mtf1GbOLyfC3OjSPQp QInsEvj6ZDHuJUU0kNJ4 tW8cABGmHDmlj5F1eAS5 G8VcugQziu6sb2ml MBOfOUsjE97ppZDgx2L4 BGFplGX9MULthDteEwUw xV46Zpv+EQJwvJtfo4Pk Xkczb7wvv7pjwBv6 IjMwJSIgdmFsaWduPSJ0 z4SvCq68R73bWQbwWOWm HDJmJTXmOAInlEnkti0h pT0aLx9+PGNvbCB3 nBV1uT4gDEMwHbG3RFaj V376DiGixAQbZdujd9pc f9ffdSv6KcVkIOMvufJd yRhcGXO8v2PxNq84 P19gIQudWWYkUDUuQFLj BPOcyEqfrf9jxV8nFy1+ BK9bf8hkcz54bN79iME+ ZUFgQYW0tGreIFyy TZCaoO5iGLgaAeB4HICy JhPaxF05lQQmXMdrRi4z fTglmOavKU0jSYFiawnt i083WhYzk1qbMCYj vIAkLTgaIRU5L86fi8L1 CVXfTLSlNWW8tJU2rO8x bGlnbjogbGVmdDsgdmVy yTfyEKljZFsbY360 IHRvcDsnPlBhdGllbnQg UgZgSUn3Z1AcIjp1UVSx vMrbTN2ohFRnKBezIw5b hNlxpXfuBO1pZOFs vjhfh490BlXup9pvDHCd sJMaXFzbLGS2V61qm9E7 ADNqEYRwSMD3hKX3yX2h bGlnbjogbGVmdDsg zmAtvKzuAAwrCXctB360 IHRvcDsnPkJpcnRoIERh jFU1KV22SD95uROmd7G2 nUH6K2TfJFXeuwei rcqryHE1KFEwEUEyvW75 Pl8gsNzsZz1hEXKdKGW2 ZNNuxYOgI0WcnE6mMgMh XWRaDHEuS5XjvOUo VExdP037XYbcBhZ6CVDd tfZpN7QoCPYtfBqxLgP0 d9N0Kp1TJ0S8KN71FQ12 aNKmx4N0fER7D3Ob YKOkjtpaosighTK5LTNr FUZqdQ36Ht2fqUjgJr6t KTZoKLX7JHIttVTvK4Cf pK6sMbKxFJOmIGYd M0WqrHFrEUhnD450WDqr RbJ0NXQpzsNsQ2NsGCCi sTbrVvE4u7V8Fv8FWYp9 FU22SB00yJFsy2L3 pFY2P3RaONUxpepnnagf aUN8OUKwOFJdnU03Ro2z aXheTg7eNMUpGYU2HRRr fZXlB3ObaA1sQcNt VDRbJXAuY9EcrGMqWAns U272CArvGuP9BJFlwpEv T5TbPKMjjMqmUhN1i7M0 Is7IXIDkHB92MAD7 qCH6JI47WM55K6DtRyeo dGFibGU+PHRhYmxlIHdp ZHRoPScxMDAlJyBzdHls XY4uHt4zNGUbGAOb mFkjiLIyGcNdm4jiTYPd FNxpFI8mmMhaI4EmhXI6 FSCyc3p7Wa99Y60gR7Ed dXA+NRCujWT2dPR5 fO4pRrPeHmW7PKmxI189 QwXwiYPrLqzxu9ilq4yi fHg2HfZ9VTOenqUqwLyz HZG6j9GvWh91F34k IHdpZHRoPSIxNSUiIHZh fOdwgb1ztD0cSf9+PGNv dBP7fNC5vL3fSrOqLiM8 REfzG104EfTjxMAd Vnujb5ell9wyxYz1TwXp FOAyjqUrbQntEWE4w7Pk Cp75H0KotUvdg4MoQgo9 wj99dLOeo6Z0dIE4 J0WbZNOerezqwPYwhRhn BQ1wVWDkqgiwJIXahE8i ZMHrC7j2WuNwPnK2WAnv Z8FehjX9RPEkwSHj JAwjFWT6L41xa7M2NXYn SPWmPVI6dFA5lN5taVtc bjogbGVmdDsgdmVydGlj UPpxPHzqN075CWKf xHwwKIFbfX8fZUKivRVx tKtpUQ8lGFYdeyasXkGR SUREWSwgSEFOTkFIIEdS JZZBSU69CZ16oLDx w3H3iYB0P9WpUOYfsyod zyvljBC0VPOkVHXvqZ74 aZXeJAawNa8tn3O2w321 OJNoSICllG53Hr1u mSbaMYWcfBLNtP7ykgjq x6yjyqxeYzWgFUIkCPn9 VBs9UNXyaVyaYcFbVDT4 ZzQ8PLD2eWUsaO3z sVgkyozxeM4dQcm+MDMv MDkvMjAwMTwvdGQ+PHRk AAD1aLmsQKkdKJZkfB1c DZCmP3u1FpSdFfI2 IOnhW0NqXSSdqxgbSu70 eV3nUfLjYrQ5WCqgY9Yy xaQ4BWUjpLUgPRwoULD3 V58gx9T9QSThUPTq BMD2nEK4wP9diWghzumt bGVmdDsgdmVydGljYWwt MKfaI682MWHrdDhfFjZt FEztTGWkWH16HN35 lLUpr3V2aKN8N0KfMOWk arkmepmcgMO9ZDLzQCXu xR70pPWmIMxjRd7bq3U5 i062DSClCAPyzH15 Ma8abIdgUMAcwLBQqY9y ycbdl1itssimDaCxNBDx MVe0SZp8WRVfgGtgMqOh HNB4TlX3UGO6zULx tM3duQfdipgbuJ8lBkk+ FfRQYHnKQU19TV26qHWy a4Y1tHX8F3VmZETdvauo mgtfoAO8QLJhWPDe cJ86tJEaLXcxDy0qi9P3 p019YEYqPIFieE52Ab7k jZvvTEHfoRRDcT8jbatk q2gkwnfwZrArDFBq XAz1AMt2ZESpvEzmNyNn UQV6LuY7FOY1vWMdsI8u dUfwapxsgP2mQql+T1A8 R5NcWrpcwSI+PC90 UWWgLN14tXLatMKmg7je lCe7PrBlBCJoTGC9iBpx FMxpr3GuLUZfY82ifWJp h7O7SFQkhDnruQRi AqMivOY3dX7uLRwbcjtu k5vauosbLjjdc5acqa18 uT31A85qCFmuRALdUDGl OWNjOXFboLjgks5e uR0eGr2+EZNtpOQ8xBZ2 eR6jXmFuXnM8LVqjC450 BoSziTLbOqcdy3nnm7le nKe2FtBtNWBzokNe gBtrJWW2y5ZiLy89J99y IHdpZHRoPSIyMCUiIHZh yOgbbp7xuZ5xEk1+PC9j w8gkmh33bS09tVH+ TKQbHKA1hJvdCLzhJTLk iR0uOVsvXpB9KHYsRaBq aK42xCMtLLcfXb5azGyi dBrlFB2yZKZrmhcq p018RbKmn8gkMUZqrDYk QAvbEWN5R54jy3P0JDAa QWJmZDH8wYH2hD5ycNlh bjogbGVmdDsgdmVy vGrjKEjpDDzmP831CNUv xYiuDmHjgNRjB0sjroED RP1nXcyclYV+PHRkIHN0 rJerIKnfZRZnbP9k XWDgV2y0GdJoZkS7ZKoi S4DrrsO6EZSkpXDgFIUy jSYZlD9cwnydy7ctbfkf PuGlYGTcGWu2TMx1 NWIjrAwpOqYqQNB7QfL6 AOI4lQLvsA8hoIbtgwfj sV6sQsu+RklOOjwvdGQ+ WIYrVZP4dIctUPwi EGWufC0rRLJfG2d0BdTg XpR2BSxqG6WuzyW7TXAk gSUxVVYgnFTFhC3ipivh x5strpckHbXmQCNb BNj2MWh6CREknKogSsEq MEI3SzM7FBQ7qHSckL5q wOercrhnaJ1hNur+TVJO OjwvdGQ+PHRkIHN0 fDubPCnzLBEfuM8vYVKk L3j7PrOcLiO9CCgcO5Ul hjA0ABSpxYWuKQTvaANM yM7vjtzul3myznzd HkCkMFOyNCm2GPy5YBPw xEdpTfGaFKN9BbZ6NLI3 dDQmjL7lcPenjlageD6n Oyc+LTV4AVY8NP68 DX25O8LmNttkbERslCG+ PHRhYmxlIHdpZHRoPScx OAJpNmPglRozRN5rUw1i ZGVyLWNvbGxhcHNl OiB (more content not included)... Normal [facility] C Throaton 07-31-2020 C Throat Ordered by Discern. Normal throat regi isolated No pathogens isolated Normal [facility] Comment on above: Performed By: #### 6 [id number] ####[facility] (DEFAULT)[address] [place] [address] ED Clinical Summaryon 2020 ED Clinical Summary [facility] ? Urgent Care [address] [place] [address] Clinical Summary PERSON INFORMATION Name: LEIGH TRINIDAD Age: 20 Years Sex: FEMALE : 2000 MRN: Acct#: Visit Reason: UC - Sore Throat; THROAT PAIN Arrival: 07/29/2020 09:44:22 Discharge: 07/29/2020 10:23:00 LOS: 000 00:39 Check In: 07/29/2020 09:44:22 Checkout: 07/29/2020 10:23:00 Address: [address] [place] [address] PCP: Flex Wang DO PROVIDER INFORMATION Provider [...] Information: sulfamethoxazole; ibuprofen PHYSICIAN DOCUMENTATION Patient: LEIGH TRINIDAD Age: 20 years Sex: FEMALE : 2000 [...] Negative . Impression and Plan Diagnosis Pharyngitis (HBL17-RF J02.9, Discharge, Medical) Plan Condition: Stable. Disposition: Discharged: Time 07/29/2020 10:17:00 (more content not included)... Normal [facility] ED Note - Provideron 021 ED Note - Provider Patient: LEIGH TRINIDAD Age: 20 years Sex: FEMALE : 2000 [...] Negative . Impression and Plan Diagnosis Pharyngitis (NRO52-CT J02.9, Discharge, Medical) Plan Condition: Stable. Disposition: Discharged: Time 07/29/2020 10:17:00, to home. Patient was given the following educational materials: Pharyngitis, Jkss-fx-Pher, Pharyngitis, Uswh-wf-Olwz. Follow up with: Flex Wang Within 2 [...] 07/29/2020 10:20 EST] Patricia Meeks PA-C [facility] ED Patient Summaryon 021 ED Patient Summary [facility] ? Urgent Care [address] [place] [address] [id number] PATIENT DISCHARGE INSTRUCTIONS Patient Information Name: LEIGH TRINIDAD Age: 20 Years Date of : 2000 Reason For Visit: UC - Sore Throat; THROAT PAIN Arrival Time: 07/29/2020 09:44:22 Primary Care Physician: Flex Wang DO Attending Physician: Patricia Meeks PA-C Comment: Patient Education With: Address: When: Flex Wang [address] [facility] [address] [place], [place] [id number] Business (1) Within 2 to 4 days [...] Follow these instructions at home: ? Take nyeb-vms-wiivqoy and prescription medicines only as told by [...] Reviewed: 06/11/2017 Elsevier Patient Education ? 2020 [employer] Medication Information: The exam and treatment you received today in the [facility] Emergency Department were for an urgent problem and are not intended as complete care. It is important for you to follow up with a doctor, nurse practitioner, or physician?s criminal legal assistant for ongoing care. If your [...] so we can reach you if necessary. [facility] Emergency Department has provided you with a complete list of medications post discharge. Please inform your business development consultant/provider of your visit and for further instruction [...] Throat (C11 (more content not included)... Normal [facility] Strep Aon 07-29-2020 Strep procedure control Pass Normal [facility] Comment on above: Performed By: #### 6 [id number] ####[facility] (DEFAULT)[address] [place] [id number] Streptococcus A Negative Normal Negative [facility] Comment on above: Performed By: #### 6 [id number] ####[facility] (DEFAULT)[address] [place] [address] Urgent Care Recordon 021 Urgent Care Record [facility] ? Urgent Care [address] [place] [address] PATIENT DISCHARGE INSTRUCTIONS Patient Information Name: LEIGH TRINIDAD Age: 20 Years Date of : 2000 Reason For Visit: UC - Sore Throat; THROAT PAIN Arrival Time: 07/29/2020 09:44:22 Primary Care Physician: Flex Wang DO Attending Physician: Patricia Meeks PA-C Comment: Visit Diagnosis: Diagnoses This Visit Pharyngitis (J02.9) UC - Sore Throat ([id number]) If you received any narcotics, sedation, or [...] [address] [facility] [place] [place] [address] [place] [address] Business (1) Within 2 to 4 days [...] and treatment you received today in the [facility] Care were for an urgent problem and are not intended as complete care. It is important for you to follow up with a doctor, nurse practitioner, or physician?s criminal legal assistant for ongoing care. If your [...] so we can reach you if necessary. [facility] has provided you with a complete list of medications post discharge. Please inform your business development consultant/provider of your visit and for further instruction [...] Follow these instructions at home: ? Take juxi-cge-hjstbak and prescription medicines only as told by [...] Get help righ (more content not included)... [facility] Coding Summaryon 06-27-2020 Coding Summary CODING DATE: 06/27/2020 [facility] STATUS: Home PAYOR: Commercial Insurance [...] Padilla Date Saved: 06/27/2020 12:37 pm [facility] ED Clinical Summaryon 2020 ED Clinical Summary [facility] ? Urgent Care [address] [place], [place] [id number] Clinical Summary PERSON INFORMATION Name: LEIGH TRINIDAD Age: 19 Years Sex: FEMALE : 2000 MRN: Acct#: Visit Reason: UC - Ear Pain; UC - Ear Pain; RIGHT EAR PAIN Arrival: 06/18/2020 15:00:59 Discharge: 06/18/2020 15:27:00 LOS: 000 00:27 Check In: 06/18/2020 15:00:59 Checkout: 06/18/2020 15:27:00 Address: [address] [place] [id number] PCP: Flex Wang DO PROVIDER INFORMATION Provider Role Assigned Unassigned Monica Dunn COMPLAINT COORDINATOR Nurse 06/18/2020 15:03:15 Marv Shannon ED PA 06/18/2020 15:03:24 VITALS INFORMATION Vital Sign Triage Latest Temperature Tympanic Temperature Temporal Artery Pulse Rate O2 Sat 98 % 98 % Respiratory Rate Blood Pressure /78 mmHg /78 mmHg MEDICAL INFORMATION Medications Given: Allergy Information: sulfamethoxazole; ibuprofen PHYSICIAN DOCUMENTATION DISCHARGE INFORMATION: Discharge Disposition: Home Discharge Location: Home PATIENT EDUCATION INFORMATION Instructions: Otitis Media, Adult, Jmvh-uw-Gtsr Follow-Up: With: Address: When: Flex Wang [address] [place] [address] Business (1) Comments: Begin on the amoxicillin-clavulan ate antibiotic take every 12 hours for the next 10 days Follow-up with your primary care physician in 3-5 days for reevaluation, sooner if any worsening symptoms DIAGNOSIS: Otitis media, right Patient Understands: Yes - Patient/family/careg iver verbalizes understanding of instructions given Comment: [facility] ED Patient Summaryon 021 ED Patient Summary [facility] ? Urgent Care [address] [place] [address] PATIENT DISCHARGE INSTRUCTIONS Patient Information Name: LEIGH TRINIDAD Age: 19 Years Date of : 2000 Reason For Visit: UC - Ear Pain; UC - Ear Pain; RIGHT EAR PAIN Arrival Time: 06/18/2020 15:00:59 Primary Care Physician: Flex Wang DO Attending Physician: Marv Shannon Comment: Patient Education With: Address: When: Flex Wang [address] [place] [address] Business (1) Comments: Begin on the amoxicillin-clavulan [...] Follow these instructions at home: ? Take uvhb-nlu-aufxnle and prescription medicines only as told by [...] 10/22/2008 Document Revised: 04/18/2018 Document Reviewed: 05/27/2017 [employer] Patient Education ? 2020 [employer]. Medication Information: The exam and treatment you received today in the [facility] were for an urgent problem and are not intended as complete care. It is important for you to follow up with a doctor, nurse practitioner, or physician?s criminal legal assistant for ongoing care. If your [...] so we can reach you if necessary. [facility] has provided you with a complete list of medications post discharge. Please inform your business development consultant/provider of your visit and for further instruction on these medications. Any specific questions regarding your chronic medications and dosages should be discussed with your primary care physician(s) and/or pharmacist. New Medications [facility], [address] [place], [place] [id number], [phone] amoxicillin-clavulan ate (Augmentin 500 mg-125 mg oral [...] media, right (H66.91) UC - Ear Pain ([id number]) UC - Ear Pain ([id number]) If you received any narcotics, sedation, or any other medication that causes drowsiness for the next 24 hours, unless otherwise directed: ? Do not drive a car. ? Do not operate machinery such as power tools, lawn mowers, drills, sewing machines, or stoves ? Avoid alcoholic beverages and drugs for allergies, n (more content not included)... [facility] Note- Provideron 06-18-2020 Urgent Care Note- Provider Patient: LEIGH TRINIDAD Age: 19 years Sex: FEMALE : 2000 [...] Impression and Plan Diagnosis Otitis media, right ([id number] H66.91, Discharge, Medical) Plan Prescriptions: [facility] Pharmacy: Augmentin 500 mg-125 mg oral tablet (Prescribe): 1 tab(s), PO, q12hr, for 10 day(s), 20 tab(s), 0 Refill(s). Patient was given the following educational materials: Otitis Media, Adult, Omds-wp-Dhkf. Follow up with: Flex Wang Begin on the amoxicillin-clavulan ate antibiotic take every 12 hours for the next 10 days Follow-up with your primary care physician in 3-5 days for reevaluation, sooner if any worsening symptoms. Counseled: Patient, Regarding diagnosis, Regarding diagnostic results, Regarding treatment plan, Regarding prescription, Patient indicated understanding of instructions. Normal [facility] Recordon 021 Urgent Care Record [facility] ? Urgent Care [address] [place], [place] [id number] PATIENT DISCHARGE INSTRUCTIONS Patient Information Name: LEIGH TRINIDAD Age: 19 Years Date of : 2000 Reason For Visit: UC - Ear Pain; UC - Ear Pain; RIGHT EAR PAIN Arrival Time: 06/18/2020 15:00:59 Primary Care Physician: Flex Wang DO Attending Physician: Marv Shannon Comment: Visit Diagnosis: Diagnoses This Visit Otitis media, right (H66.91) UC - Ear Pain ([id number]) UC - Ear Pain ([id number]) If you received any narcotics, sedation, or [...] Address: When: Flex Wang [address] [facility], [place] [address] Business (1) Comments: Begin on the amoxicillin-clavulan ate antibiotic take every 12 hours for the next 10 days Follow-up with your primary care physician in 3-5 days for reevaluation, sooner if any worsening symptoms Medication Information: The exam and treatment you received today in the [facility] were for an urgent problem and are not intended as complete care. It is important for you to follow up with a doctor, nurse practitioner, or physician?s criminal legal assistant for ongoing care. If your [...] so we can reach you if necessary. [facility] has provided you with a complete list of medications post discharge. Please inform your business development consultant/provider of your visit and for further instruction on these medications. Any specific questions regarding your chronic medications and dosages should be discussed with your primary care physician(s) and/or pharmacist. New Medications [facility], [address] [place], [place] [id number], [phone] amoxicillin-clavulan ate (Augmentin 500 mg-125 mg oral [...] Follow these instructions at home: ? Take bnts-wko-urftqvm and prescription medicines only as told by [...] ? You (more content not included)... [facility] Consent Formson 04-28-2020 Consent Forms [id number] [id number] [facility] Provider Orderson 04-28-2020 Provider Orders [id number] #[id number] [facility] Coding Summaryon 04-25-2020 Coding Summary CODING DATE: 04/25/2020 FINAL [facility] STATUS: Home PAYOR: Commercial Insurance ADMIT DX: [...] Padilla Date Saved: 04/25/2020 02:38 pm [facility] .QC Respiratory Panel 2.1 (B ioFire)on 04-22-2020 Internal Control-Resp Panel 2.1(BioFire) Pass [facility] Comment on above: Order Comment: Order ed by Holley.[[id number]] Performed By: #### 6 [id number], [id number] ####[facility] (DEFAULT)[address] [place] [address] Respiratory Panel 2.1 (BioFi re)on 04-22-2020 Adenovirus -BioFire Not detected Normal Not Detected [facility] Comment on above: Performed By: #### 6 [id number], [id number] ####[facility] (DEFAULT)[address] [place] [address] Bordetella parapertussis -BioFire Not detected Normal Not Detected [facility] Comment on above: Performed By: #### 6 [id number], [id number] ####[facility] (DEFAULT)[address] [place] [address] Bordetella pertussis -BioFire Not detected Normal Not Detected [facility] Comment on above: Performed By: #### 6 [id number], [id number] ####[facility] (DEFAULT)[address] [place] [address] Chlamydia pneumoniae -BioFire Not detected Normal Not Detected [facility] Comment on above: Performed By: #### 6 [id number], [id number] ####[facility] (DEFAULT)[address] [place] [address] Coronavirus 229E (Not COVID-19) -BioFire Not detected Normal Not Detected [facility] Comment on above: Performed By: #### 6 [id number], [id number] ####[facility] (DEFAULT)[address] [place] [address] Coronavirus HKU1 (Not COVID-19) -BioFire Not detected Normal Not Detected [facility] Comment on above: Performed By: #### 6 [id number], [id number] ####[facility] (DEFAULT)[address] [place] [address] Coronavirus NL63 (Not COVID-19) -BioFire Not detected Normal Not Detected [facility] Comment on above: Performed By: #### 6 [id number], [id number] ####[facility] (DEFAULT)[address] [place] [address] Coronavirus OC43 (Not COVID-19) -BioFire Not detected Normal Not Detected [facility] Comment on above: Performed By: #### 6 [id number], [id number] ####[facility] (DEFAULT)[address] [place] [address] Employed in healthcare? No Invalid Interpretation Code [facility] Comment on above: Performed By: #### 6 [id number], [id number] ####[facility] (DEFAULT)[address] [place] [address] Group care resident? No Invalid Interpretation Code [facility] Comment on above: Performed By: #### 6 [id number], [id number] ####[facility] (DEFAULT)[address] [place] [address] Human Metapneumovirus -BioFire Not detected Normal Not Detected [facility] Comment on above: Performed By: #### 6 [id number], [id number] ####[facility] (DEFAULT)[address] [place] [address] Human Rhinovirus/Enterovir us -BioFire Not detected Normal Not Detected [facility] Comment on above: Performed By: #### 6 [id number], [id number] ####[facility] (DEFAULT)[address] [place] [address] In ICU? No Invalid Interpretation Code [facility] Comment on above: Performed By: #### 6 [id number], [id number] ####[facility] (DEFAULT)[address] [place] [address] Influenza A (no subtype) -BioFire Not detected Normal Not Detected [facility] Comment on above: Performed By: #### 6 [id number], [id number] ####[facility] (DEFAULT)[address] [place] [address] Influenza A -BioFire Not detected Normal Not Detected [facility] Comment on above: Performed By: #### 6 [id number], [id number] ####[facility] (DEFAULT)[address] [place] [address] Influenza A H1 -BioFire Not detected Normal Not Detected [facility] Comment on above: Performed By: #### 6 [id number], [id number] ####[facility] (DEFAULT)[address] [place] [address] Influenza A H1-2009 -BioFire Not detected Normal Not Detected [facility] Comment on above: Performed By: #### 6 [id number], [id number] ####[facility] (DEFAULT)[address] [place] [address] Influenza A H3 -BioFire Not detected Normal Not Detected [facility] Comment on above: Performed By: #### 6 [id number], [id number] ####[facility] (DEFAULT)[address] [place] [address] Influenza B -BioFire Not detected Normal Not Detected [facility] Comment on above: Performed By: #### 6 [id number], [id number] ####[facility] (DEFAULT)[address] [place] [address] Mycoplasma pneumoniae -BioFire Not detected Normal Not Detected [facility] Comment on above: Performed By: #### 6 [id number], [id number] ####[facility] (DEFAULT)[address] [place] [address] Parainfluenza Virus 1 -BioFire Not detected Normal Not Detected [facility] Comment on above: Performed By: #### 6 [id number], [id number] ####[facility] (DEFAULT)[address] [place] [address] Parainfluenza Virus 2 -BioFire Not detected Normal Not Detected [facility] Comment on above: Performed By: #### 6 [id number], [id number] ####[facility] (DEFAULT)[address] [place] [address] Parainfluenza Virus 3 -BioFire Not detected Normal Not Detected [facility] Comment on above: Performed By: #### 6 [id number], [id number] ####[facility] (DEFAULT)[address] [place] [address] Parainfluenza Virus 4 -BioFire Not detected Normal Not Detected [facility] Comment on above: Performed By: #### 6 [id number], [id number] ####[facility] (DEFAULT)[address] [place] [address] status? Not Invalid Interpretation Code [facility] Comment on above: Performed By: #### 6 [id number], [id number] ####[facility] (DEFAULT)[address] [place] [address] Respiratory Syncytial Virus -BioFire Not detected Normal Not Detected [facility] Comment on above: Performed By: #### 6 [id number], [id number] ####[facility] (DEFAULT)[address] [place] [address] SARS-CoV-2 (COVID-19) RNA OZZIE+probe Ql (Unsp spec) Not detected Normal Not Detected [facility] Comment on above: Performed By: #### 6 [id number], [id number] ####[facility] (DEFAULT)[address] [place] [address] SARS-CoV-2 (COVID-19) RNA OZZIE+probe Ql (Unsp spec) No Invalid Interpretation Code [facility] Comment on above: Performed By: #### 6 [id number], [id number] ####[facility] (DEFAULT)[address] [place] [address] Symptomatic as defined by CDC? No Invalid Interpretation Code [facility] Comment on above: Performed By: #### 6 [id number], [id number] ####[facility] (DEFAULT)[address] [id number] Vital Signs Date Time Vital Sign Value Performing Clinician Facility 08-17-2024 15:08-0400 Body mass index (BMI) [Ratio] 41.98 kg/m2 Kamryn [place] PA Work Phone: [facility] 08-17-2024 15:08-0400 Body weight 107.5 kg Kamryn Zoila PA Work Phone: [facility] 08-17-2024 15:08-0400 Diastolic blood pressure 78 mm[Hg] Kamryn [place] PA Work Phone: [facility] 08-17-2024 15:08-0400 Systolic blood pressure 124 mm[Hg] Kamryn [place] PA Work Phone: [facility] 04-01-2024 10:40-0500 Body mass index (BMI) [Ratio] 40.74 kg/m2 Kamryn Zoila PA Work Phone: [facility] 04-01-2024 10:40-0500 Body weight 104.33 kg Kamryn Zoila PA Work Phone: [facility] 04-01-2024 10:40-0500 Diastolic blood pressure 70 mm[Hg] Kamryn Zoila PA Work Phone: [facility] 04-01-2024 10:40-0500 Systolic blood pressure 112 mm[Hg] Kamryn Zoila PA Work Phone: [facility] 03-04-2024 11:34-0400 Body mass index (BMI) [Ratio] 40.06 kg/m2 Michael Nae DO Work Phone: [facility] 03-04-2024 11:34-0400 Body weight 102.57 kg Michael Nae DO Work Phone: [facility] 03-04-2024 11:34-0400 Diastolic blood pressure 60 mm[Hg] Michael Nae DO Work Phone: [facility] 03-04-2024 11:34-0400 Systolic blood pressure 110 mm[Hg] Michael Nae DO Work Phone: [facility] 02-25-2024 10:29-0400 Body mass index (BMI) [Ratio] 40.74 kg/m2 Kamryn DAMIAN Work Phone: [facility] 02-25-2024 10:29-0400 Body weight 104.33 kg Kamryn DAMIAN Work Phone: [facility] 02-25-2024 10:29-0400 Diastolic blood pressure 76 mm[Hg] Kamryn Zoila PA Work Phone: [facility] 02-25-2024 10:29-0400 Systolic blood pressure 130 mm[Hg] Kamryn Germaney PA Work Phone: [facility] 02-12-2024 16:02-0400 Body mass index (BMI) [Ratio] 45.24 kg/m2 Michael Nae DO Work Phone: [facility] 02-12-2024 16:02-0400 Body weight 115.85 kg Michael Nae DO Work Phone: [facility] 02-12-2024 16:02-0400 Diastolic blood pressure 78 mm[Hg] Michael Nae DO Work Phone: [facility] 02-12-2024 16:02-0400 Systolic blood pressure 128 mm[Hg] Michael Nae DO Work Phone: [facility] 01-29-2024 16:10-0400 Body mass index (BMI) [Ratio] 44.6 kg/m2 Michael Nae DO Work Phone: [facility] 01-29-2024 16:10-0400 Body weight 114.19 kg Michael Nae DO Work Phone: [facility] 01-29-2024 16:10-0400 Diastolic blood pressure 70 mm[Hg] Michael Nae DO Work Phone: [facility] 01-29-2024 16:10-0400 Systolic blood pressure 122 mm[Hg] Michael Soni DO Work Phone: [facility] 01-16-2024 15:36-0400 Body mass index (BMI) [Ratio] 43.72 kg/m2 Kamryn Hawley PA Work Phone: [facility] 01-16-2024 15:36-0400 Body weight 111.95 kg Kamryn Hawley PA Work Phone: [facility] 01-16-2024 15:36-0400 Diastolic blood pressure 82 mm[Hg] Kamryn Germaney PA Work Phone: [facility] 01-16-2024 15:36-0400 Systolic blood pressure 136 mm[Hg] Kamryn Hawley PA Work Phone: [facility] 12-06-2021 16:30-0400 Body height 160.02 cm Ezequiel Melo Other [facility] Other 12-06-2021 16:30-0400 Body mass index (BMI) [Ratio] 41.62 kg/m2 Ezequiel Elliotty Other [facility] Other 12-06-2021 16:30-0400 Body weight 106.6 kg Ezequiel Angietessay Other [facility] Other 10-11-2021 14:45-0400 Body height 160.02 cm Ezequiel Elliotty Other [facility] Other 10-11-2021 14:45-0400 Body mass index (BMI) [Ratio] 41.98 kg/m2 Ezequiel Ditty Other [facility] Other 10-11-2021 14:45-0400 Body weight 107.5 kg Ezequiel Angietty Other [facility] Other 10-11-2021 14:45-0400 Diastolic blood pressure 79 mm[Hg] Ezequiel Melo Other [facility] Other 10-11-2021 14:45-0400 Systolic blood pressure 128 mm[Hg] Ezequiel Melo Other [facility] Other Encounters Encounter Date Encounter Type Care Provider Facility Start: 08-17-2024 End: 08-17-2024 Patient encounter procedure Kamryn DAMIAN Work Phone: [facility] Start: 08-17-2024 End: 08-17-2024 Periodic preventive med est patient 18-39 yrs Kamryn DAMIAN Work Phone: [facility] Comment on above: Well woman exam with routine gynecological exam Start: 08-17-2024 End: 08-17-2024 Bamboo flowsheet Kamryn DAMIAN Work Phone: [facility] Start: 08-17-2024 End: 08-17-2024 Bamboo flowsheet Kamryn DAMIAN Work Phone: [facility] Start: 04-01-2024 End: 04-01-2024 ambulatory KAMRYN HAWLEY Not Available Start: 04-01-2024 End: 04-01-2024 Follow-up encounter Kamryn DAMIAN Work Phone: [facility] Comment on above: 6 weeks f ollow-up; control counseling Start: 03-04-2024 End: 03-04-2024 ambulatory MICHAEL ANE Not Available Start: 03-04-2024 End: 03-04-2024 Patient encounter status Michael Nae DO Work Phone: [facility] Work Phone: Start: 03-04-2024 End: 03-04-2024 Postop follow up visit related to original px Michael Nae DO Work Phone: [facility] Comment on above: Blood pressure check Start: 02-25-2024 End: 02-25-2024 ambulatory KAMRYN HAWLEY Not Available Start: 02-25-2024 End: 02-25-2024 Patient encounter status Kamryn Zoila DAMIAN Work Phone: [facility] Start: 02-25-2024 End: 02-25-2024 care visit Kamryn Germanzayra DAMIAN Work Phone: [facility] Comment on above: 2 weeks f ollow-up; Blood pressure check Start: 02-19-2024 End: 02-19-2024 Clinisync Result Encounter Michael Nae DO Work Phone: [facility] Unsolicited Start: 02-19-2024 End: 02-19-2024 Clinisync Result Encounter Michael Nae DO Work Phone: [facility] Start: 02-17-2024 End: 02-17-2024 Clinisync Result Encounter Michael Nae DO Work Phone: [facility] Start: 02-17-2024 End: 02-17-2024 Clinisync Result Encounter Michael Nae DO Work Phone: [facility] Start: 02-12-2024 End: 02-12-2024 flow sheet Michael Nae DO Work Phone: [facility] Comment on above: 36 weeks gestation o f ; Third trimester Start: 02-12-2024 End: 02-12-2024 ambulatory MICHAEL NAE Not Available Start: 02-12-2024 End: 02-12-2024 Bamboo flowsheet Michael Nae DO Work Phone: [facility] Start: 02-12-2024 End: 02-12-2024 Bamboo flowsheet Michael Nae DO Work Phone: [facility] Start: 01-29-2024 End: 01-29-2024 flow sheet Michael Nae DO Work Phone: [facility] Comment on above: 34 weeks gestation o f ; Gastroesophageal reflux in ; Back pain in Start: 01-29-2024 End: 01-29-2024 ambulatory MICHAEL NAE Not Available Start: 01-29-2024 End: 01-29-2024 Bamboo flowsheet Michael Nae DO Work Phone: [facility] Start: 01-29-2024 End: 01-29-2024 Bamboo flowsheet Michael Nae DO Work Phone: [facility] Start: 01-19-2024 End: 01-20-2024 Clinisync Result Encounter Kamryn DAMIAN Work Phone: [facility] External Department Unsolicited Start: 01-19-2024 End: 01-20-2024 Clinisync Result Encounter Kamryn DAMIAN Work Phone: [facility] External Department Unsolicited Start: 01-16-2024 End: 01-16-2024 ambulatory KAMRYN HAWLEY Not Available Start: 01-16-2024 End: 01-16-2024 flow sheet Kamryn DAMIAN Work Phone: [facility] Comment on above: 32 weeks gestation o f ; induced hypertension, antepartum; Excessive growth affecting management of in third trimester, single or unspecified fetus Start: 01-16-2024 End: 01-16-2024 Bamboo flowsheet Kamryn DAMIAN Work Phone: [facility] Start: 01-16-2024 End: 01-16-2024 Bamboo flowsheet Kamryn DAMIAN Work Phone: [facility] Start: 01-16-2024 End: 01-16-2024 Clinisync Result Encounter Michael Nae DO Work Phone: [facility] External Department Unsolicited Start: 01-02-2024 End: 01-02-2024 ambulatory MICHAEL NAE Not Available Start: 12-17-2023 End: 12-17-2023 ambulatory KAMRYN HAWLEY Not Available Start: 12-03-2023 End: 12-03-2023 ambulatory MICHAEL NAE Not Available Start: 11-07-2023 End: 11-07-2023 ambulatory MICHAEL NAE Not Available Start: 10-31-2023 End: 10-31-2023 ambulatory MICHAEL NAE Not Available Start: 08-12-2023 End: 08-12-2023 ambulatory MICHAEL NAE Not Available Start: 08-29-2022 End: 08-29-[address] DOCTOR SUE Facility:[facility] Start: 01-12-2022 End: 01-16-[address] DOCTOR SUE Facility:[facility] Start: 12-06-2021 End: 12-06-2021 ambulatory Ezequiel Melo Other [facility] Other Start: 12-06-2021 Patient encounter procedure Ezequiel Melo [facility] Start: 10-11-2021 End: 10-11-2021 ambulatory Ezequiel Angietessafox Other [facility] Other Start: 10-11-2021 [facility] visit new patient Ezequiel Adamsjessie [facility] Procedures Date Procedure Procedure Detail Performing Clinician Start: 08-17-2024 End: 08-17-2024 Urnls dip stick/tablet rgnt non-auto w/o micrscp Kamryn DAMIAN Work Phone: Start: 02-19-2024 ALL CBC WITH AUTO DIFF Michael Nae DO Work Phone: Start: 02-17-2024 ALL CBC WITH AUTO DIFF Michael Nae DO Work Phone: Start: 02-12-2024 Urnls dip stick/tabl et rgnt non-auto w/o micrscp Michael Nae DO Work Phone: Start: 01-29-2024 Urnls dip stick/tabl et rgnt non-auto w/o micrscp Michael Nae DO Work Phone: Start: 01-19-2024 [facility] TOTAL PROTEIN 24 HOUR URINE Kamryn DAMIAN Work Phone: Start: 01-16-2024 [facility] APTT Michael Fazi o DO Work Phone: Start: 01-16-2024 [facility] PROTHROMBIN T ALEX INR W/O COUM Michael Nae DO Work Phone: Start: 01-16-2024 Urnls dip stick/tabl et rgnt non-auto w/o micrscp Kamryn DAMIAN Work Phone: Plan of Treatment Date Care Activity Detail Author Start: 08-17-2024 End: 08-17-2024 Patient encounter procedure [facility] Comment on above: Arrived Start: 04-01-2024 End: 04-01-2024 ambulatory 04/01/2024 10:30 AM EST Visit [facility] [address] [place] [address] Kamryn Hawley PA [address] [place] [address] [facility] Start: 03-11-2024 End: 03-11-2024 Clinical Support 03/11/2024 1:00 PM EDT Clinical Support [facility] [address] [place] [id number] [facility] Start: 03-04-2024 End: 03-04-2024 ambulatory 03/04/2024 11:30 AM EDT Visit [facility] [address] [place] [id number] Michael Soni, DO [address] [place] [address] [facility] Start: 02-26-2024 End: 02-26-2024 Patient encounter procedure 02/26/2024 3:30 PM EDT Routine [facility] [address] [place] [address] Kamryn Hawley PA [address] [place] [address] [facility] Start: 02-19-2024 End: 02-19-2024 Patient encounter procedure 02/19/2024 3:40 PM EDT Routine [facility] [address] [place] [id number] Michael Soni, DO [address] [place] [address] [facility] Start: 02-12-2024 End: 02-12-2024 Patient encounter procedure [facility] Comment on above: Arrived Start: 02-12-2024 End: 02-11-2025 Strep B DNA probe, amplification Strep B DNA probe, amplification Lab Routine Third trimester Expected: 02/12/2024 (Approximate), Expires: 02/11/2025 [facility] Work Phone: Comment on above: Expected: 02/12/2024 (Approximate), Expires: 02/11/2025 Start: 01-29-2024 End: 01-29-2024 Patient encounter procedure [facility] Comment on above: Arrived Start: 01-22-2024 End: 01-22-2024 Professional / ancillary services management 01/22/2024 2:30 PM EDT Ancillary Procedure [facility] [address] [place] [phone] [facility] Start: 01-16-2024 End: 01-15-2025 Alanine aminotransferase [Enzymatic activity/volume] in Serum or Plasma ALT Lab Routine induced hypertension, antepartum Expected: 01/16/2024 (Approximate), Expires: 01/15/2025 [facility] Comment on above: Expected: 01/16/2024 (Approximate), Expires: 01/15/2025 Start: 01-16-2024 End: 01-15-2025 Aspartate aminotransferase [Enzymatic activity/volume] in Serum or Plasma AST Lab Routine induced hypertension, antepartum Expected: 01/16/2024 (Approximate), Expires: 01/15/2025 [facility] Comment on above: Expected: 01/16/2024 (Approximate), Expires: 01/15/2025 Start: 01-16-2024 End: 01-15-2025 CBC W Auto Differential panel - Blood CBC and differential Lab Routine induced hypertension, antepartum Expected: 01/16/2024 (Approximate), Expires: 01/15/2025 [facility] Comment on above: Expected: 01/16/2024 (Approximate), Expires: 01/15/2025 Start: 01-16-2024 End: 01-15-2025 Creatinine [Mass/volume] in Serum or Plasma Creatinine Lab Routine induced hypertension, antepartum Expected: 01/16/2024 (Approximate), Expires: 01/15/2025 [facility] Work Phone: Comment on above: Expected: 01/16/2024 (Approximate), Expires: 01/15/2025 Start: 01-16-2024 End: 01-15-2025 Lactate dehydrogenase [Enzymatic activity/volume] in Serum or Plasma by Lactate to pyruvate reaction Lactate dehydrogenase Lab Routine induced hypertension, antepartum Expected: 01/16/2024, Expires: 01/15/2025 [facility] Comment on above: Expected: 01/16/2024 , Expires: 01/15/2025 Start: 01-16-2024 End: 01-15-2025 Protein, urine, 24 hour Protein, urine, 24 hour Lab Routine induced hypertension, antepartum Expected: 01/16/2024 (Approximate), Expires: 01/15/2025 [facility] Comment on above: Expected: 01/16/2024 (Approximate), Expires: 01/15/2025 Start: 01-16-2024 End: 01-15-2025 Pt and ptt Pt and ptt Lab Routine induced hypertension, antepartum Expected: 01/16/2024, Expires: 01/15/2025 [facility] Comment on above: Expected: 01/16/2024 , Expires: 01/15/2025 Start: 01-16-2024 End: 01-15-2025 Urate [Mass/volume] in Serum or Plasma Uric acid Lab Routine induced hypertension, antepartum Expected: 01/16/2024 (Approximate), Expires: 01/15/2025 [facility] Comment on above: Expected: 01/16/2024 (Approximate), Expires: 01/15/2025 Start: 01-16-2024 End: 01-15-2025 Urea nitrogen [Mass/volume] in Serum or Plasma BUN Lab Routine induced hypertension, antepartum Expected: 01/16/2024, Expires: 01/15/2025 [facility] Comment on above: Expected: 01/16/2024 , Expires: 01/15/2025 Start: 01-16-2024 End: 01-15-2025 US biophysical profile w non stress test US biophysical profile w non stress test Imaging Routine induced hypertension, antepartum Excessive growth affecting management of in third trimester, single or unspecified fetus Expected: 01/16/2024 (Approximate), Expires: 01/15/2025 [facility] Comment on above: Expected: 01/16/2024 (Approximate), Expires: 01/15/2025 Start: 01-16-2024 End: 01-15-2025 US for US OB SCAN FOR GROWTH Imaging Routine Excessive growth affecting management of in third trimester, single or unspecified fetus Expected: 01/16/2024 (Approximate), Expires: 01/15/2025 [facility] Comment on above: Expected: 01/16/2024 (Approximate), Expires: 01/15/2025 Cytology Cervical or vaginal smear or scraping study Pap Smear Pathology and Cytology Routine Well woman exam with routine gynecological exam Ordered: 08/17/2024 [facility] Work Phone: Comment on above: Ordered: 08/17/2024 Payers Date Payer Category Payer Private Health Insurance [facility] [id number] 2023 Unknown FRONTPATH FRONTP ATH [id number] 2023-Present [phone] [address] [place] [address] [id number] 2023 Unknown [id number] 2000 Unknown [id number] 2.16.840.1.485584.3.579.2. 593 2000 Unknown [id number] 2.16.840.1.350129.3.579.2. 593 2000 Unknown [id number] 2.16.840.1.708824.3.579.2. 1258 2000 Unknown [id number] 2.16.840.1.505758.3.579.2. 9 2000 Unknown [id number] 2.16.840.1.499823.3.579.2. 1258 2000 Unknown [id number] 2.16.840.1.899113.3.579.2. 1258 2000 Unknown [id number] 2.16.840.1.316860.3.579.2. 1258 2000 Unknown [id number] 2.16.840.1.048970.3.579.2. 9 2000 Unknown [id number] 2.16.840.1.680267.3.579.2. 1258 2000 Unknown [id number] 2.16.840.1.475195.3.579.2. 1258 2000 Unknown [id number] 2.16.840.1.936961.3.579.2. 1258 2000 Unknown [id number] 2.16.840.1.493218.3.579.2. 1258 2000 Unknown [id number] 2.16.840.1.356181.3.579.2. 1258 2000 Unknown [id number] 2.16.840.1.326054.3.579.2. 1259 1959 Unknown [id number] Medicaid [id number] Social History Date Type Detail Facility Start: 08-12-2023 End: 02-25-2024 Sex Assigned At [facility] Other Start: 11-07-2023 Tobacco smoking status NHIS Never smoked tobacco [facility] Start: 11-07-2023 Tobacco use and exposure Smokeless tobacco non-user [facility] Start: 02-12-2024 End: 08-17-2024 Alcoholic beverage intake Ex-drinker (finding) [facility] Start: 02-12-2024 End: 02-25-2024 Alcoholic beverage intake [facility] Start: 11-07-2023 Tobacco Comment never smoked never will [facility] Start: 11-07-2023 Alcohol Comment MAYBE one a month definitely not per week. [facility] Start: 06-16-2023 [facility] Start: 2000 Sex assigned at Female [facility] Start: 10-10-2022 Gender identity Identifies as female gender (finding) [facility] Start: 10-10-2022 Sexual orientation Choose not to disclose [facility] Clinical Notes 04-22-2020 to 08-17-2024 NATI Wilson - 08/17/2024 3:00 PM NATI Rizo - 04/01/2024 10:30 AM NATI Camarena - 03/04/2024 11:30 AM NATI Rizo - 02/25/2024 9:50 AM Maria L Shore LPN - 02/12/2024 3:30 PM EDT Note Date & Type Note Facility 08-17-2024 History of Presen t illness Narrative Reason for Appointment: Patient ID: Leigh Singh is a 24 y.o. female who presents for Gynecologic Exam Patient presents today for Annual Exam. MEDICATIONS Current Outpatient Medications Medication Instructions MV-Min-Fe Fum-FA-DHA ( 1 PO) 1 each, Daily ALLERGIES Allergies Allergen Reactions Pork-Derived Products Dizziness, GI intolerance, Headache, Itching and Shortness of breath Sulfa Antibiotics Hives, Anxiety, Dizziness, Fever, Headache, Itching, Rash, Shortness of breath and Swelling Swelling, itching Other Reaction(s): hives, Unknown Chocolate Hazelnut Flavoring Agent (Non-Screening) GI intolerance, Itching, Runny nose and Swelling Pecan Nut (Diagnostic) Unknown PROBLEMS Active Ambulatory Problems Diagnosis Date Noted Endometriosis 08/12/2023 Resolved Ambulatory Problems Diagnosis Date Noted No Resolved Ambulatory Problems Past Medical History: Diagnosis Date Abnormal ECG Bloating Dysmenorrhea Hirsutism Irregular menses Lupus Obesity PCOS (polycystic ovarian syndrome) Pelvic pain Weight gain HISTORY PAST MEDICAL HISTORY SOCIAL HISTORY Past Medical History: Diagnosis Date Abnormal ECG Bloating Dysmenorrhea Endometriosis Hirsutism Irregular menses Lupus Obesity PCOS (polycystic ovarian syndrome) Pelvic pain Weight gain Social History Tobacco Use Smoking status: Never Smokeless tobacco: Never Tobacco comments: never smoked never will Substance Use Topics Alcohol use: Not Currently Alcohol/week: 1.0 standard drink of alcohol Types: 1 Standard drinks or equivalent per week Comment: MAYBE one a month definitely not per week. Drug use: Yes Frequency: 3.0 times per week Types: Marijuana Comment: always from dispensary, helps with anxiety FAMILY HISTORY Family History Problem Relation Name Age of Onset Other (high blood pressure) Mother Janette [place] Hypothyroidism Mother Janette [place] Diabetes Mother Janette [place] Rheum arthritis Mother Janette [place] Hypertension Mother Janette [place] Stroke Mother Janette [place] Coronary artery disease Other Cancer Other Diabetes Other Hypertension Other Cancer Maternal Grandfather pa Candi Breast cancer Maternal Grandmother Preston Cancer Maternal Grandmother Preston Diabetes Maternal Grandmother Preston Hypertension Maternal Grandmother [place] Cancer Paternal Grandfather Keshav Hypertension Paternal Grandfather Keshav Cancer Paternal Grandmother Anya Breast cancer Father's Sister Giuliana Breast cancer Father's Sister Jane SURGICAL HISTORY Past Surgical History: Procedure Laterality Date ABDOMINAL SURGERY LAPAROSCOPY DIAGNOSTIC / BIOPSY / ASPIRATION / LYSIS Laparoscopy REVIEW OF SYSTEMS Review of Systems: Review of Systems Constitutional: Negative. HENT: Negative. Eyes: Negative. Respiratory: Negative. Cardiovascular: Negative. Gastrointestinal: Negative. Genitourinary: Negative. Musculoskeletal: Negative. Skin: Negative. Neurological: Negative. All other systems reviewed and are negative. Hematological: Negative. Endocrine: Negative. Allergic/Immunologic: Negative. OBJECTIVE Objective: Physical Exam Constitutional: Appearance: Normal appearance. Genitourinary: Right Adnexa: not tender and no mass present. Left Adnexa: not tender and no mass present. No cervical discharge. Breasts: Breasts are soft. Right: Normal. Left: Normal. HENT: Head: Normocephalic. Nose: Nose normal. Mouth/Throat: Mouth: Mucous membranes are moist. Cardiovascular: Rate and Rhythm: Normal rate. Pulmonary: Effort: Pulmonary effort is normal. Abdominal: General: Bowel sounds are normal. Palpations: Abdomen is soft. Musculoskeletal: General: Normal range of motion. Cervical back: Normal range of motion. Neurological: General: No focal deficit present. Mental Status: She is alert. Skin: General: Skin is warm and dry. Psychiatric: Mood and Affect: Mood normal. Vitals and nursing note reviewed. Exam conducted with a nuclear physician present. Vitals: Estimated body mass index is 41.98 kg/m as calculated from the following: Height as of 08/29/22: 5' 3 . Weight as of this encounter: 237 lb. BP: 124/78 Patient's last menstrual period was 07/27/2024 (approximate). ASSESSMENT & PLAN ICD-10-CM 1. Well woman exam with routine gynecological exam Z01.419 Pap Smear POCT urinalysis dipstick manually resulted POCT , urine manually resulted Annual Exam: Patient presents today for an annual exam. Patient states she is doing well and has complaints of being on oral b/c. Pt states it makes her feel like she is going crazy and took herself off the Micronor. Pap was obtained without difficulty. Patient wishes to not take any medication at this time and will call office if she decides to go back on a control Orders Placed This Encounter Procedures POCT urinalysis dipstick manually resulted POCT , urine manually resulted Follow Up: Patient is to return in one year for annual unless needed otherwise. Documented by Jia Lu MA on behalf of: NATI Wilson documented in this encounter [facility] 04-01-2024 History of Presen t illness Narrative Reason for Appointment: Patient ID: Leigh Singh is a 23 y.o. female who presents for Care Patient presents today for Post Follow Up appointment. MEDICATIONS Current Outpatient Medications Medication Instructions norethindrone (MICRONOR) 0.35 mg, Oral, Daily MV-Min-Fe Fum-FA-DHA ( 1 PO) 1 each, Daily ALLERGIES Allergies Allergen Reactions Pork-Derived Products Dizziness, GI intolerance, Headache, Itching and Shortness of breath Sulfa Antibiotics Hives, Anxiety, Dizziness, Fever, Headache, Itching, Rash, Shortness of breath and Swelling Swelling, itching Other Reaction(s): hives, Unknown Chocolate Hazelnut Flavor GI intolerance, Itching, Runny nose and Swelling Pecan Nut (Diagnostic) Unknown PROBLEMS Active Ambulatory Problems Diagnosis Date Noted Endometriosis 08/12/2023 Resolved Ambulatory Problems Diagnosis Date Noted No Resolved Ambulatory Problems Past Medical History: Diagnosis Date Abnormal ECG Bloating Dysmenorrhea Hirsutism Irregular menses Lupus Obesity PCOS (polycystic ovarian syndrome) Pelvic pain Weight gain HISTORY PAST MEDICAL HISTORY SOCIAL HISTORY Past Medical History: Diagnosis Date Abnormal ECG Bloating Dysmenorrhea Endometriosis Hirsutism Irregular menses Lupus Obesity PCOS (polycystic ovarian syndrome) Pelvic pain Weight gain Social History Tobacco Use Smoking status: Never Smokeless tobacco: Never Tobacco comments: never smoked never will Substance Use Topics Alcohol use: Not Currently Alcohol/week: 1.0 standard drink of alcohol Types: 1 Standard drinks or equivalent per week Comment: MAYBE one a month definitely not per week. Drug use: Yes Frequency: 3.0 times per week Types: Marijuana Comment: always from dispensary, helps with anxiety FAMILY HISTORY Family History Problem Relation Name Age of Onset Other (high blood pressure) Mother Janette [place] Hypothyroidism Mother Janette Amos Diabetes Mother Janette Amos Rheum arthritis Mother Janette Amos Hypertension Mother Janette Amos Stroke Mother Janette Amos Coronary artery disease Other Cancer Other Diabetes Other Hypertension Other Cancer Maternal Grandfather Grandpa Candi Breast cancer Maternal Grandmother Preston Cancer Maternal Grandmother Preston Diabetes Maternal Grandmother Preston Hypertension Maternal Grandmother [place] Cancer Paternal Grandfather Ksehav Hypertension Paternal Grandfather Keshav Cancer Paternal Grandmother Anya Breast cancer Father's Sister Giuliana Breast cancer Father's Sister Jane SURGICAL HISTORY Past Surgical History: Procedure Laterality Date ABDOMINAL SURGERY LAPAROSCOPY DIAGNOSTIC / BIOPSY / ASPIRATION / LYSIS Laparoscopy REVIEW OF SYSTEMS Review of Systems: Review of Systems OBJECTIVE Objective: OBGyn Exam Vitals: Estimated body mass index is 40.74 kg/m as calculated from the following: Height as of 08/29/22: 5' 3 . Weight as of this encounter: 230 lb. BP: 112/70 No LMP recorded. ASSESSMENT & PLAN ICD-10-CM 1. 6 weeks follow-up Z39.2 2. control counseling Z30.09 norethindrone (Micronor) 0.35 MG tablet Post Follow Up: Patient is doing well. Patient presents today for 6 week visit. Patient is s/p Vaginal delivery. Patient states depression but denies suicidal and homicidal ideations. All options were discussed with the patient regarding control and patient desires oral contraception . Follow Up: Patient is to return for annual unless needed otherwise. Documented by NATI Wilson on behalf of: NATI Wilson documented in this encounter [facility] 03-04-2024 History of Presen t illness Narrative Reason for Appointment: Patient ID: Leigh Singh is a 23 y.o. female who presents for BP Patient presents today for Post Follow Up appointment. MEDICATIONS Current Outpatient Medications Medication Instructions labetalol (NORMODYNE) 200 mg, Oral, Once MV-Min-Fe Fum-FA-DHA ( 1 PO) 1 each, Daily ALLERGIES Allergies Allergen Reactions Pork-Derived Products Dizziness, GI intolerance, Headache, Itching and Shortness of breath Sulfa Antibiotics Hives, Anxiety, Dizziness, Fever, Headache, Itching, Rash, Shortness of breath and Swelling Swelling, itching Other Reaction(s): hives, Unknown Chocolate Hazelnut Flavor GI intolerance, Itching, Runny nose and Swelling Pecan Nut (Diagnostic) Unknown PROBLEMS Active Ambulatory Problems Diagnosis Date Noted Endometriosis 08/12/2023 Resolved Ambulatory Problems Diagnosis Date Noted No Resolved Ambulatory Problems Past Medical History: Diagnosis Date Abnormal ECG Bloating Dysmenorrhea Hirsutism Irregular menses Lupus Obesity PCOS (polycystic ovarian syndrome) Pelvic pain Weight gain HISTORY PAST MEDICAL HISTORY SOCIAL HISTORY Past Medical History: Diagnosis Date Abnormal ECG Bloating Dysmenorrhea Endometriosis Hirsutism Irregular menses Lupus Obesity PCOS (polycystic ovarian syndrome) Pelvic pain Weight gain Social History Tobacco Use Smoking status: Never Smokeless tobacco: Never Tobacco comments: never smoked never will Substance Use Topics Alcohol use: Not Currently Alcohol/week: 1.0 standard drink of alcohol Types: 1 Standard drinks or equivalent per week Comment: MAYBE one a month definitely not per week. Drug use: Yes Frequency: 3.0 times per week Types: Marijuana Comment: always from dispensary, helps with anxiety FAMILY HISTORY Family History Problem Relation Name Age of Onset Other (high blood pressure) Mother Janette Amos Hypothyroidism Mother Janette [place] Diabetes Mother Janette Amos Rheum arthritis Mother Janette Amos Hypertension Mother Janette [place] Stroke Mother Janette [place] Coronary artery disease Other Cancer Other Diabetes Other Hypertension Other Cancer Maternal Grandfather Grandpa [place] Breast cancer Maternal Grandmother [place] Cancer Maternal Grandmother Preston Diabetes Maternal Grandmother [place] Hypertension Maternal Grandmother [place] Cancer Paternal Grandfather Keshav Hypertension Paternal Grandfather Keshav Cancer Paternal Grandmother Anya Breast cancer Father's Sister Giuliana Breast cancer Father's Sister Jane SURGICAL HISTORY Past Surgical History: Procedure Laterality Date ABDOMINAL SURGERY LAPAROSCOPY DIAGNOSTIC / BIOPSY / ASPIRATION / LYSIS Laparoscopy REVIEW OF SYSTEMS Review of Systems: Review of Systems Constitutional: Negative. HENT: Negative. Eyes: Negative. Respiratory: Negative. Cardiovascular: Negative. Gastrointestinal: Negative. Genitourinary: Negative. Musculoskeletal: Negative. Skin: Negative. Neurological: Negative. All other systems reviewed and are negative. Hematological: Negative. Endocrine: Negative. Allergic/Immunologic: Negative. OBJECTIVE Objective: Physical Exam Constitutional: Appearance: Normal appearance. She is normal weight. HENT: Head: Normocephalic. Cardiovascular: Rate and Rhythm: Normal rate. Pulses: Normal pulses. Pulmonary: Effort: Pulmonary effort is normal. Breath sounds: Normal breath sounds. Abdominal: Palpations: Abdomen is soft. Musculoskeletal: General: Normal range of motion. Neurological: General: No focal deficit present. Mental Status: She is alert and oriented to person, place, and time. Psychiatric: Mood and Affect: Mood normal. Behavior: Behavior normal. Thought Content: Thought content normal. Judgment: Judgment normal. Vitals and nursing note reviewed. Vitals: Estimated body mass index is 40.06 kg/m as calculated from the following: Height as of 08/29/22: 5' 3 . Weight as of this encounter: 226 lb 1.9 oz. BP: 110/60 No LMP recorded. ASSESSMENT & PLAN ICD-10-CM 1. Blood pressure check Z01.30 Patient presents for one week post BP check. Pt taking 200mg daily, we will decrease to 100mg daily and pt to follow up next week. States she is not checking bp at home. Started iron supplements again having small headaches, check today within normal limits Documented by NATI Wilson on behalf of: Michael Soni DO documented in this encounter [facility] 02-25-2024 History of Presen t illness Narrative Reason for Appointment: Patient ID: Leigh Singh is a 23 y.o. female who presents for Care (Pt present today for 2 week post visit. Pt delivered on 02/17/2024 vaginally. ) Patient presents today for Post Follow Up appointment. MEDICATIONS Current Outpatient Medications Medication Instructions citalopram (CELEXA) 20 mg, Oral, Daily cyclobenzaprine (FLEXERIL) 5 mg, Oral, 3 times daily PRN labetalol (NORMODYNE) 100 mg, Oral, 2 times daily omeprazole (PRILOSEC) 20 mg, Oral, Daily before breakfast, Do not crush or chew. MV-Min-Fe Fum-FA-DHA ( 1 PO) 1 each, Oral, Daily ALLERGIES Allergies Allergen Reactions Pork-Derived Products Dizziness, GI intolerance, Headache, Itching and Shortness of breath Sulfa Antibiotics Hives, Anxiety, Dizziness, Fever, Headache, Itching, Rash, Shortness of breath and Swelling Swelling, itching Other Reaction(s): hives, Unknown Chocolate Hazelnut Flavor GI intolerance, Itching, Runny nose and Swelling Pecan Nut (Diagnostic) Unknown PROBLEMS Active Ambulatory Problems Diagnosis Date Noted Endometriosis 08/12/2023 Resolved Ambulatory Problems Diagnosis Date Noted No Resolved Ambulatory Problems Past Medical History: Diagnosis Date Abnormal ECG Bloating Dysmenorrhea Hirsutism Irregular menses Lupus Obesity PCOS (polycystic ovarian syndrome) Pelvic pain Weight gain HISTORY PAST MEDICAL HISTORY SOCIAL HISTORY Past Medical History: Diagnosis Date Abnormal ECG Bloating Dysmenorrhea Endometriosis Hirsutism Irregular menses Lupus Obesity PCOS (polycystic ovarian syndrome) Pelvic pain Weight gain Social History Tobacco Use Smoking status: Never Smokeless tobacco: Never Tobacco comments: never smoked never will Substance Use Topics Alcohol use: Not Currently Alcohol/week: 1.0 standard drink of alcohol Types: 1 Standard drinks or equivalent per week Comment: MAYBE one a month definitely not per week. Drug use: Yes Frequency: 3.0 times per week Types: Marijuana Comment: always from dispensary, helps with anxiety FAMILY HISTORY Family History Problem Relation Name Age of Onset Other (high blood pressure) Mother Janette [place] Hypothyroidism Mother Janette Amos Diabetes Mother Janette Amos Rheum arthritis Mother Janette [place] Hypertension Mother Janette Amos Stroke Mother Janette [place] Coronary artery disease Other Cancer Other Diabetes Other Hypertension Other Cancer Maternal Grandfather pa Candi Breast cancer Maternal Grandmother [place] Cancer Maternal Grandmother [place] Diabetes Maternal Grandmother [place] Hypertension Maternal Grandmother [place] Cancer Paternal Grandfather Keshav Hypertension Paternal Grandfather Keshav Cancer Paternal Grandmother Anya Breast cancer Father's Sister Giuliana Breast cancer Father's Sister Jane SURGICAL HISTORY Past Surgical History: Procedure Laterality Date ABDOMINAL SURGERY LAPAROSCOPY DIAGNOSTIC / BIOPSY / ASPIRATION / LYSIS Laparoscopy REVIEW OF SYSTEMS Review of Systems: Review of Systems Constitutional: Negative. HENT: Negative. Eyes: Negative. Respiratory: Negative. Cardiovascular: Negative. Gastrointestinal: Negative. Genitourinary: Negative. Musculoskeletal: Negative. Skin: Negative. Neurological: Negative. All other systems reviewed and are negative. Hematological: Negative. Endocrine: Negative. Allergic/Immunologic: Negative. OBJECTIVE Objective: Physical Exam Constitutional: Appearance: Normal appearance. She is normal weight. HENT: Head: Normocephalic. Cardiovascular: Rate and Rhythm: Normal rate. Pulses: Normal pulses. Pulmonary: Effort: Pulmonary effort is normal. Breath sounds: Normal breath sounds. Abdominal: Palpations: Abdomen is soft. Musculoskeletal: General: Normal range of motion. Neurological: General: No focal deficit present. Mental Status: She is alert and oriented to person, place, and time. Psychiatric: Mood and Affect: Mood normal. Behavior: Behavior normal. Thought Content: Thought content normal. Judgment: Judgment normal. Vitals and nursing note reviewed. Vitals: Estimated body mass index is 45.24 kg/m as calculated from the following: Height as of 08/29/22: 5' 3 . Weight as of 02/12/24: 255 lb 6.4 oz. BP: Patient's last menstrual period was 06/02/2023. ASSESSMENT & PLAN ICD-10-CM 1. 2 weeks follow-up Z39.2 2. Blood pressure check Z01.30 Patient present today for her 2 week post visit. Pt is having her b/p checked at today's visit and it was 130/76. Pt states she is doing well and will be seeing a marine consultant today due to baby not latching and mother not producing enough milk. Pt states she is healing slowly from the vaginal stitches and does not want checked at this time. Pt is still taking Labetalol 200 mg bid . Patient to decrease to 200mg daily Pt to return back in 3 weeks for her 6 week post visit. Documented by Jia Lu MA on behalf of: NATI Wilson documented in this encounter [facility] 02-12-2024 History of Presen t illness Narrative Reason for Appointment: Patient ID: Leigh Singh is a 23 y.o. female who presents for No chief complaint on file. Patient presents today for Return OB appointment. MEDICATIONS Current Outpatient Medications Medication Instructions citalopram (CELEXA) 20 mg, Oral, Daily cyclobenzaprine (FLEXERIL) 5 mg, Oral, 3 times daily PRN labetalol (NORMODYNE) 100 mg, Oral, 2 times daily omeprazole (PRILOSEC) 20 mg, Oral, Daily before breakfast, Do not crush or chew. MV-Min-Fe Fum-FA-DHA ( 1 PO) 1 each, Oral, Daily ALLERGIES Allergies Allergen Reactions Pork-Derived Products Dizziness, GI intolerance, Headache, Itching and Shortness of breath Sulfa Antibiotics Hives, Anxiety, Dizziness, Fever, Headache, Itching, Rash, Shortness of breath and Swelling Swelling, itching Other Reaction(s): hives, Unknown Chocolate Hazelnut Flavor GI intolerance, Itching, Runny nose and Swelling Pecan Nut (Diagnostic) Unknown PROBLEMS Active Ambulatory Problems Diagnosis Date Noted Endometriosis 08/12/2023 Resolved Ambulatory Problems Diagnosis Date Noted No Resolved Ambulatory Problems Past Medical History: Diagnosis Date Abnormal ECG Bloating Dysmenorrhea Hirsutism Irregular menses Lupus (CMS/HCC) Obesity PCOS (polycystic ovarian syndrome) Pelvic pain Weight gain HISTORY PAST MEDICAL HISTORY SOCIAL HISTORY Past Medical History: Diagnosis Date Abnormal ECG Bloating Dysmenorrhea Endometriosis Hirsutism Irregular menses Lupus (CMS/HCC) Obesity PCOS (polycystic ovarian syndrome) Pelvic pain Weight gain Social History Tobacco Use Smoking status: Never Smokeless tobacco: Never Tobacco comments: never smoked never will Substance Use Topics Alcohol use: Not Currently Alcohol/week: 1.0 standard drink of alcohol Types: 1 Standard drinks or equivalent per week Comment: MAYBE one a month definitely not per week. Drug use: Yes Frequency: 3.0 times per week Types: Marijuana Comment: always from dispensary, helps with anxiety FAMILY HISTORY Family History Problem Relation Name Age of Onset Other (high blood pressure) Mother Janette Amos Hypothyroidism Mother Janette [place] Diabetes Mother Janette [place] Rheum arthritis Mother Janette [place] Hypertension Mother Janette Amos Stroke Mother Janette [place] Coronary artery disease Other Cancer Other Diabetes Other Hypertension Other Cancer Maternal Grandfather Grandpa [place] Breast cancer Maternal Grandmother Preston Cancer Maternal Grandmother [place] Diabetes Maternal Grandmother [place] Hypertension Maternal Grandmother [place] Cancer Paternal Grandfather Keshav Hypertension Paternal Grandfather Keshav Cancer Paternal Grandmother Anya Breast cancer Father's Sister Giuliana Breast cancer Father's Sister Jane SURGICAL HISTORY Past Surgical History: Procedure Laterality Date ABDOMINAL SURGERY LAPAROSCOPY DIAGNOSTIC / BIOPSY / ASPIRATION / LYSIS Laparoscopy REVIEW OF SYSTEMS Review of Systems: Review of Systems Constitutional: Negative. HENT: Negative. Eyes: Negative. Respiratory: Negative. Cardiovascular: Negative. Gastrointestinal: Negative. Genitourinary: Negative. Musculoskeletal: Negative. Skin: Negative. Neurological: Negative. All other systems reviewed and are negative. Hematological: Negative. Endocrine: Negative. Allergic/Immunologic: Negative. OBJECTIVE Objective: Physical Exam Constitutional: Appearance: Normal appearance. She is well-developed. Genitourinary: Vulva normal. Cardiovascular: Rate and Rhythm: Normal rate and regular rhythm. Pulmonary: Effort: Pulmonary effort is normal. Breath sounds: Normal breath sounds. Abdominal: General: Bowel sounds are normal. There is no distension. Palpations: Abdomen is soft. Tenderness: There is no abdominal tenderness. There is no guarding or rebound. Musculoskeletal: General: No swelling. Normal range of motion. Right lower leg: No edema. Left lower leg: No edema. Neurological: Mental Status: She is alert and oriented to person, place, and time. Skin: General: Skin is warm and dry. Psychiatric: Mood and Affect: Mood normal. Behavior: Behavior normal. Vitals and nursing note reviewed. Exam conducted with a nuclear physician present. Vitals: Estimated body mass index is 45.24 kg/m as calculated from the following: Height as of 23: 5' 3 . Weight as of this encounter: 255 lb 6.4 oz. BP: 128/78 Patient's last menstrual period was 06/02/2023. ASSESSMENT & PLAN ICD-10-CM 1. 36 weeks gestation of Z3A.36 POCT urinalysis dipstick manually resulted 2. Third trimester Z34.93 Strep B DNA probe, amplification Patient is doing well but has complaints of being tired and having maternal discomfort due to . Patient verbalized frequent movement and was instructed to perform kick counts three times per day. labor precautions were given, LARC consent was signed/declined, and GBS was obtained. Cervical check was performed and patient is 0cm dilated. Orders Placed This Encounter Procedures Strep B DNA probe, amplification POCT urinalysis dipstick manually resulted Follow Up: Patient is to return to office in 1 week for routine OB appointment Documented by Yulisa Shore LPN on behalf of: Michael Soni DO documented in this encounter [facility] 01-29-2024 History of Presen t illness Narrative Reason for Appointment: Patient ID: Liegh Singh is a 23 y.o. female who presents for Routine Visit Patient presents today for Return OB appointment. MEDICATIONS Current Outpatient Medications Medication Instructions citalopram (CELEXA) 20 mg, Oral, Daily labetalol (NORMODYNE) 100 mg, Oral, 2 times daily MV-Min-Fe Fum-FA-DHA ( 1 PO) 1 each, Oral, Daily ALLERGIES Allergies Allergen Reactions Pork-Derived Products Dizziness, GI intolerance, Headache, Itching and Shortness of breath Sulfa Antibiotics Hives, Anxiety, Dizziness, Fever, Headache, Itching, Rash, Shortness of breath and Swelling Swelling, itching Other Reaction(s): hives, Unknown [place] Chocolate Hazelnut Flavor GI intolerance, Itching, Runny nose and Swelling Pecan Nut (Diagnostic) Unknown PROBLEMS Active Ambulatory Problems Diagnosis Date Noted Endometriosis 08/12/2023 Resolved Ambulatory Problems Diagnosis Date Noted No Resolved Ambulatory Problems Past Medical History: Diagnosis Date Abnormal ECG Bloating Dysmenorrhea Hirsutism Irregular menses Lupus (CMS/HCC) Obesity PCOS (polycystic ovarian syndrome) Pelvic pain Weight gain HISTORY PAST MEDICAL HISTORY SOCIAL HISTORY Past Medical History: Diagnosis Date Abnormal ECG Bloating Dysmenorrhea Endometriosis Hirsutism Irregular menses Lupus (CMS/HCC) Obesity PCOS (polycystic ovarian syndrome) Pelvic pain Weight gain Social History Tobacco Use Smoking status: Never Smokeless tobacco: Never Tobacco comments: never smoked never will Substance Use Topics Alcohol use: Not Currently Alcohol/week: 1.0 standard drink of alcohol Types: 1 Standard drinks or equivalent per week Comment: MAYBE one a month definitely not per week. Drug use: Yes Frequency: 3.0 times per week Types: Marijuana Comment: always from dispensary, helps with anxiety FAMILY HISTORY Family History Problem Relation Name Age of Onset Other (high blood pressure) Mother Janette Amos Hypothyroidism Mother Janette Amos Diabetes Mother Janette Amos Rheum arthritis Mother Janette Amos Hypertension Mother Janette Amos Stroke Mother Janette [place] Coronary artery disease Other Cancer Other Diabetes Other Hypertension Other Cancer Maternal Grandfather pa Candi Breast cancer Maternal Grandmother Preston Cancer Maternal Grandmother Preston Diabetes Maternal Grandmother Preston Hypertension Maternal Grandmother Preston Cancer Paternal Grandfather Keshav Hypertension Paternal Grandfather Keshav Cancer Paternal Grandmother Anya Breast cancer Father's Sister Giuliana Breast cancer Father's Sister Jane SURGICAL HISTORY Past Surgical History: Procedure Laterality Date ABDOMINAL SURGERY LAPAROSCOPY DIAGNOSTIC / BIOPSY / ASPIRATION / LYSIS Laparoscopy REVIEW OF SYSTEMS Review of Systems: Review of Systems Constitutional: Negative. HENT: Negative. Eyes: Negative. Respiratory: Negative. Cardiovascular: Negative. Gastrointestinal: Negative. Genitourinary: Negative. Musculoskeletal: Negative. Skin: Negative. Neurological: Negative. All other systems reviewed and are negative. Hematological: Negative. Endocrine: Negative. Allergic/Immunologic: Negative. OBJECTIVE Objective: Physical Exam Constitutional: Appearance: Normal appearance. She is well-developed. Cardiovascular: Rate and Rhythm: Normal rate and regular rhythm. Pulmonary: Effort: Pulmonary effort is normal. Breath sounds: Normal breath sounds. Abdominal: General: Bowel sounds are normal. There is no distension. Palpations: Abdomen is soft. Tenderness: There is no abdominal tenderness. There is no guarding or rebound. Musculoskeletal: General: No swelling. Normal range of motion. Right lower leg: No edema. Left lower leg: No edema. Neurological: Mental Status: She is alert and oriented to person, place, and time. Skin: General: Skin is warm and dry. Psychiatric: Mood and Affect: Mood normal. Behavior: Behavior normal. Vitals and nursing note reviewed. Exam conducted with a nuclear physician present. Vitals: Estimated body mass index is 44.6 kg/m as calculated from the following: Height as of 08/29/22: 5' 3 . Weight as of this encounter: 251 lb 12 oz. BP: 122/70 Patient's last menstrual period was 06/02/2023. ASSESSMENT & PLAN ICD-10-CM 1. 34 weeks gestation of Z3A.34 POCT urinalysis dipstick manually resulted Return OB: Patient presents today for a routine obstetrics appointment. Patient is currently 34w3d . Patient states she is doing well but has complaints of being tired due to current . Patient has verbalizes frequent movement. labor precautions was discussed/given and patient was instructed to perform kick counts three times a day. Orders Placed This Encounter Procedures POCT urinalysis dipstick manually resulted Follow Up: Patient is to return to office in 2 week for routine OB appointment. Documented by Yulisa Shore LPN on behalf of: Michael Soni DO documented in this encounter [facility] 01-16-2024 History of Presen t illness Narrative Reason for Appointment: Patient ID: Leigh Singh is a 23 y.o. female who presents for Routine Visit Patient presents today for Return OB appointment. MEDICATIONS Current Outpatient Medications Medication Instructions citalopram (CELEXA) 20 mg, Oral, Daily labetalol (NORMODYNE) 100 mg, Oral, 2 times daily MV-Min-Fe Fum-FA-DHA ( 1 PO) 1 each, Oral, Daily ALLERGIES Allergies Allergen Reactions Pork-Derived Products Dizziness, GI intolerance, Headache, Itching and Shortness of breath Sulfa Antibiotics Hives, Anxiety, Dizziness, Fever, Headache, Itching, Rash, Shortness of breath and Swelling Swelling, itching Other Reaction(s): hives, Unknown [place] Chocolate Hazelnut Flavor GI intolerance, Itching, Runny nose and Swelling Pecan Nut (Diagnostic) Unknown PROBLEMS Active Ambulatory Problems Diagnosis Date Noted Endometriosis 08/12/2023 Resolved Ambulatory Problems Diagnosis Date Noted No Resolved Ambulatory Problems Past Medical History: Diagnosis Date Abnormal ECG Bloating Dysmenorrhea Hirsutism Irregular menses Lupus (CMS/HCC) Obesity PCOS (polycystic ovarian syndrome) Pelvic pain Weight gain HISTORY PAST MEDICAL HISTORY SOCIAL HISTORY Past Medical History: Diagnosis Date Abnormal ECG Bloating Dysmenorrhea Endometriosis Hirsutism Irregular menses Lupus (CMS/HCC) Obesity PCOS (polycystic ovarian syndrome) Pelvic pain Weight gain Social History Tobacco Use Smoking status: Never Smokeless tobacco: Never Tobacco comments: never smoked never will Substance Use Topics Alcohol use: Not Currently Alcohol/week: 1.0 standard drink of alcohol Types: 1 Standard drinks or equivalent per week Comment: MAYBE one a month definitely not per week. Drug use: Yes Frequency: 3.0 times per week Types: Marijuana Comment: always from dispensary, helps with anxiety FAMILY HISTORY Family History Problem Relation Name Age of Onset Other (high blood pressure) Mother Janette [place] Hypothyroidism Mother Janette [place] Diabetes Mother Janette Amos Rheum arthritis Mother Janette Amos Hypertension Mother Janette [place] Stroke Mother Janette Amos Coronary artery disease Other Cancer Other Diabetes Other Hypertension Other Cancer Maternal Grandfather Grandpa Candi Breast cancer Maternal Grandmother Preston Cancer Maternal Grandmother Preston Diabetes Maternal Grandmother Preston Hypertension Maternal Grandmother Preston Cancer Paternal Grandfather Keshav Hypertension Paternal Grandfather Keshav Cancer Paternal Grandmother Anya Breast cancer Father's Sister Giuliana Breast cancer Father's Sister Jane SURGICAL HISTORY Past Surgical History: Procedure Laterality Date ABDOMINAL SURGERY LAPAROSCOPY DIAGNOSTIC / BIOPSY / ASPIRATION / LYSIS Laparoscopy REVIEW OF SYSTEMS Review of Systems: Review of Systems OBJECTIVE Objective: OBGyn Exam Vitals: Estimated body mass index is 43.72 kg/m as calculated from the following: Height as of 08/29/22: 5' 3 . Weight as of this encounter: 246 lb 12.8 oz. BP: 136/82 Patient's last menstrual period was 06/02/2023. ASSESSMENT & PLAN ICD-10-CM 1. 32 weeks gestation of Z3A.32 POCT urinalysis dipstick manually resulted labetalol (Normodyne) 100 MG tablet 2. induced hypertension, antepartum O13.9 labetalol (Normodyne) 100 MG tablet Creatinine Protein, urine, 24 hour Pt and ptt CBC and differential Uric acid Lactate dehydrogenase ALT AST BUN Creatinine Protein, urine, 24 hour Pt and ptt CBC and differential Uric acid Lactate dehydrogenase AST BUN Return OB: Patient presents today for a routine obstetrics appointment. Patient is currently 32w4d . Patient states she is doing well but has complaints of being tired due to current . Patient has verbalizes frequent movement. labor precautions was discussed/given and patient was instructed to perform kick counts three times a day. Patient states she has been feeling dizzy, swelling at ankles and blood pressure starting to elevate. 137/82 today, higher per pt at home, Patient will have PIH labsand urine. Growth us and nst with bpp ordered. We will start on labetolol for blood pressures slowly increasing. NST/BPP and Growth ultrasound was ordered for patient. Orders Placed This Encounter Procedures Creatinine Protein, urine, 24 hour Pt and ptt CBC and differential Uric acid Lactate dehydrogenase ALT AST BUN POCT urinalysis dipstick manually resulted Follow Up: Patient is to return to office in 2 week for routine OB appointment. Documented by Terri Gunderson LPN on behalf of: NATI Wilson documented in this encounter [facility] 12-06-2021 Evaluation note Encounter Date Diagnosis Assessment Notes Nov, Dyspepsia (ICD-10 - K30) patient states does have some bloating in the left center she does have pain noted. patient is advised that we can start levsin and refer to application designer for food testing. [facility] Other 05-25-2022 Evaluation note* Encounter Date Diagnosis Assessment Notes Treatment Notes Treatment Clinical Notes September, Bloating (ICD-10 - R14.0) September, Dyspepsia (ICD-10 - K30) 25 Sep, 2021 Abdominal pain (ICD-10 - R10.9) [facility] Other 11-17-2021 NotePatient Education Materials Follows: Foot Sprain A foot sprain is [...] period of time. This is done if yourligament is overstretched or partially torn. Your health [...] a procedure is needed to reconnect it tothe bone. ? A cast or splint. This [...] weight until your health care provider says thatyou can. Use crutches or other supportive devices [...] This may take several hours. ? Take vnfs-igx-ckeapuo and prescription medicines only as told by your health care provider. ? When you can walk without pain, wear supportive shoes that have stiff soles. Do not wear flip-flops, and do not walk barefoot. ? Keep all follow-up visits as told by your health care provider. This is important. Contact a health care provide (more content not included)...[facility] 07-29-2020 NotePatient Education Materials Follows:Disease Pharyngitis Pharyngitis is a sore throat (pharynx). This is when there is redness, pain, and swelling in your throat. Most of the time, this condition gets better on its own. In some cases, you may need medicine. Follow these instructions at home: ? Take bymy-xrf-mdxcypd and prescription medicines only as told by your doctor. ? If you were prescribed an antibiotic medicine, take it as told by your doctor. Do not stop takingthe antibiotic even if you start to feel [...] there is redness, pain, and swelling in yourthroat. ? If you were prescribed an antibiotic medicine, take it as told by your doctor. Do not stop takingthe antibiotic even if you start to feel better. ? Most of the time, pharyngitis gets better on its own. Sometimes, you may need medicine. This information is not intended to replace advice given to you by your health care provider. Make sure you discuss any questions you have with your health care provider. Document Released: 10/22/2008 Document Revised: 04/18/2018 Document Reviewed: 06/11/2017 [employer] Patient Education ? [facility] Note Patient Education Materials Follows: Otitis Media, Adult Otitis media means that the middle ear is red and swollen (inflamed) and full of fluid. The condition usually goes away on its own. Follow these instructions at home: ? Take katp-gpr-cbhgmwv and prescription medicines only as told by your doctor. ? If you were prescribed an antibiotic medicine, take it as told by your doctor. Do not stop takingthe antibiotic even if you start to feel [...] Reviewed: 05/27/2017 [employer] Patient Education ? 2019 [employer] [facility]12-04-2020 Note Nasal swab performed without complication. Patient tolerated well. Education given. Patient verbalized understanding. [Electronically Signed on: 04/22/2020 15:05 EST] Miri Nuñez RN [Verified on: 04/22/2020 15:05 EST] [facility]* Diagnosis 2 weeks follow-up Blood pressure check Screening for hypertension documented in this encounter [facility] HealthcareEvaluation [facility]* Diagnosis Blood pressure check Screening for hypertension documented in this encounter [facility] note* Diagnosis 6 weeks follow-up control counseling documented in this encounter [facility] HealthcareEvaluation note* Diagnosis 32 weeks gestation of induced hypertension, antepartum Transient hypertension of , antepartum Excessive growth affecting management of in third trimester, single or unspecified fetus documented in this encounter [facility] HealthcareEvaluation note* Diagnosis 36 weeks gestation of Third trimester state, incidental documented in this encounter [facility] HealthcareEvaluation note* Diagnosis 34 weeks gestation of Gastroesophageal reflux in Back pain in Other specified complication of , unspecified as to episode of care documented in this encounter [facility] HealthcareEvaluation note* Diagnosis Well woman exam with routine gynecological exam Routine gynecological examination documented in this encounter [facility] HealthcareHistory general Narrative - Reported* Type Description Date Medical History PCOS Medical History Endometriosis Surgical History laparoscopy - endometriosis [facility] Other Reason for referral (narrative)* Reason eval and treat Diagnosis 1 Dyspepsia (K30) Referral Organization [facility] Gastroenterolo gy Referring Provider First Name Ezequiel Referring Provider Last Name Lorie Referring Provider Specialty Gastroenter ology Referred Organization Unknown Facility Referred Provider Kenyon Alvarez Referred Provider Specialty Allergy/Immu nology Referral Priority Routine General Notes Terri Gunderson 022 03:45:51 PM > patient insurance will be new on 01/02/2022 if she is able to get in before this. [facility] Other Re[employer] for visit NarrativePATIENT HERE AT THE REQUEST OF DR. SONI FOR EVALUATION & TREATMENT OF BLOATINGNorth [employer] Other [employer] for visit NarrativePATIENT HERE FOR FOLLOW UP EGD. PT WAS STARTED ON [facility] FOLLOWING PROCEDURE., patient states that she is having bad stomach cramps feels like a stabbing pain to a centeralized spot on the left side., patient states that she did not start the dicyclomine dues to some of the side effects that were listed.[facility] Other Summary Purpose Family History No Family History Records FoundNo Family History Records FoundNo Family History Records FoundNo Family History Records Found Advance Directives No Advanced Directives Records FoundNo Advanced Directives Records FoundNo Advanced Directives Records FoundNo Advanced Directives Records Found Additional Source Comments INFORMATION SOURCE (unrecogn ized section and content) DATE CREATED AUTHOR 04/21/2021 [facility] DATE CREATED AUTHOR AUTHOR'S ORGANIZ ATION 11/08/2021 [facility] DATE CREATED AUTHOR AUTHOR'S ORGANIZ ATION [facility] [facility] DATE CREATED AUTHOR AUTHOR'S ORGANIZ ATION 04/03/2024 [facility] Specialists EPIC Care Teams (unrecognized sec tion and content) Hotel Maintenance Worker Relationship Specialty Start Date End Date Flex Wang MD [address] [place] [id number] PCP - General Family Medicine 10/30/22 Hotel Maintenance Worker Relationship Specialty Start Date End Date Flex Wang MD [address] [place] [id number] PCP - General Family Medicine 10/30/22 Hotel Maintenance Worker Relationship Specialty Start Date End Date Flex Wang MD [address] [place] [id number] PCP - General Family Medicine 10/30/22 Hotel Maintenance Worker Relationship Specialty Start Date End Date Flex Wang MD [address] [place] [id number] PCP - General Family Medicine 10/30/22 Hotel Maintenance Worker Relationship Specialty Start Date End Date Flex Wang MD [address] [place] [id number] PCP - General Family Medicine 10/30/22 Hotel Maintenance Worker Relationship Specialty Start Date End Date Flex Wang MD [address] [place] [id number] PCP - General Family Medicine 10/30/22 Hotel Maintenance Worker Relationship Specialty Start Date End Date Flex Wang MD [address] [place] [address] PCP - General Family Medicine 10/30/22 Hotel Maintenance Worker Relationship Specialty Start Date End Date Flex Wang MD [address] [place] [id number] PCP - General Family Medicine 10/30/22 Hotel Maintenance Worker Relationship Specialty Start Date End Date Flex Wang MD [address] [place] [id number] PCP - General Family Medicine 10/30/22 Hotel Maintenance Worker Relationship Specialty Start Date End Date Flex Wang MD [address] [place] [address] PCP - General Family Medicine 10/30/22 Hotel Maintenance Worker Relationship Specialty Start Date End Date Flex Wang MD [address] [place] [address] PCP - General Family Medicine 10/30/22 Reason for Visit (unrecogniz ed section and content) Reason Comments Care Pt present today for 2 week post visit. Pt delivered on 02/17/2024 vaginally. Reason Comments BP Reason Comments Care Reason Comments Routine Visit Reason Comments Gynecologic Exam FOR RECORDS PERTAINING TO PATIENTS WHO ARE [...] BE BASED ON THE PRIMARY CLINICAL RECORDS. [employer] provides no warranty or guarantee of the accuracy or completeness of information in this document.
[2024-08-20 15:08] LABS: Age Gdln ACOG Testing Note (.); IGP, rfx Aptima HPV ASCU Note (.)
== END 2024-08-17 20:33 | disposition home or self-care (01) ==
LOC: LAB 20:32
PROVIDERS: Visit Provider Physician Assistant
DX: Z01.419 Encounter for gynecological examination (general) (routine) without abnormal findings (principal)
CPT/HCPCS: 88175